=== PATIENT | female | born 1980 | race Caucasian/White ===

== ENCOUNTER 2023-04-13 12:08 | Outpatient (OUT) | payer MEDICARE, SELFPAY ==
[2023-04-13 13:40] LABS: Free T4 0.79 ng/dL (0.76-1.46)
[2023-04-13 13:43] LABS: Thyroid Stimulating Hormone 0.672 uIU/mL (0.358-3.740)
== END 2023-04-13 12:09 | disposition home or self-care (01) ==
LOC: LAB 12:08
PROVIDERS: PCP Family Medicine; Visit Provider Family Medicine
DX: E03.9 Hypothyroidism, unspecified (principal)
CPT/HCPCS: 36415; 84439; 84443

== ENCOUNTER 2023-07-26 08:23 | Outpatient (OUT) | payer MEDICARE, MEDICAID, SELFPAY ==
[2023-07-26 08:54] LABS: Basophils Absolute Auto 0.1 10^3/uL (0.0-0.1); Basophils Percent Auto 0.7 % (0.2-2.0); Eosinophils Absolute Auto 0.2 10^3/uL (0.0-0.7); Eosinophils Percent Auto 3.1 % (0.9-7.0); Hematocrit 42.1 % (36.0-48.0); Hemoglobin 13.6 g/dL (12.0-16.0); Immature Granulocytes Abs Auto 0.01 10^3/uL (0.00-0.03); Immature Granulocytes Pct Auto 0.1 % (0.0-0.5); Lymphocytes Absolute Auto 3.2 10^3/uL (1.2-3.8); Lymphocytes Percent Auto 42.8 % (20.5-60.0); Mean Corpuscular HGB Conc 32.3 g/dL (29.9-35.2); Mean Corpuscular Hemoglobin 30.4 pg (26.7-34.0); Mean Platelet Volume 10.2 fL (9.5-13.5); Monocytes Absolute Auto 0.7 10^3/uL (0.3-0.8); Monocytes Percent Auto 9.2 % (1.7-12.0); Neutrophils Absolute Auto 3.3 10^3/uL (1.4-6.5); Neutrophils Percent Auto 44.1 % (43.0-75.0); Platelet Count 248 10^3/uL (150-450); Red Blood Count 4.48 10^6/uL (4.20-5.40); Red Cell Distribution Width 13.9 % (11.0-15.0); White Blood Count 7.4 10^3/uL (4.0-11.0)
[2023-07-26 09:37] LABS: Free T4 0.86 ng/dL (0.76-1.46)
[2023-07-26 11:00] LABS: Thyroid Stimulating Hormone 1.263 uIU/mL (0.358-3.740)
[2023-07-27 16:09] LABS: Thyroglobulin Antibody <1.0 IU/mL (0.0-0.9); Thyroid Peroxidase (TPO) Ab <9 IU/mL (0-34)
== END 2023-07-26 08:24 | disposition home or self-care (01) ==
PROVIDERS: PCP Family Medicine; Visit Provider Family Medicine
DX: E03.9 Hypothyroidism, unspecified (principal); R53.83 Other fatigue
CPT/HCPCS: 36415; 84439; 84443; 85025; 86376; 86800

== ENCOUNTER 2023-09-28 12:57 | Outpatient (OUT) | payer MEDICARE, MEDICAID, SELFPAY ==
[2023-09-28 13:32] LABS: Basophils Absolute Auto 0.1 10^3/uL (0.0-0.1); Basophils Percent Auto 0.8 % (0.2-2.0); Eosinophils Absolute Auto 0.2 10^3/uL (0.0-0.7); Eosinophils Percent Auto 3.4 % (0.9-7.0); Hematocrit 41.1 % (36.0-48.0); Hemoglobin 13.3 g/dL (12.0-16.0); Immature Granulocytes Abs Auto 0.01 10^3/uL (0.00-0.03); Immature Granulocytes Pct Auto 0.1 % (0.0-0.5); Lymphocytes Absolute Auto 2.8 10^3/uL (1.2-3.8); Mean Corpuscular HGB Conc 32.4 g/dL (29.9-35.2); Mean Corpuscular Hemoglobin 30.6 pg (26.7-34.0); Mean Corpuscular Volume 94.5 fL (81.0-99.0); Monocytes Absolute Auto 0.5 10^3/uL (0.3-0.8); Monocytes Percent Auto 7.3 % (1.7-12.0); Neutrophils Absolute Auto 3.5 10^3/uL (1.4-6.5); Neutrophils Percent Auto 49.4 % (43.0-75.0); Platelet Count 286 10^3/uL (150-450); Red Blood Count 4.35 10^6/uL (4.20-5.40); Red Cell Distribution Width 13.1 % (11.0-15.0); White Blood Count 7.1 10^3/uL (4.0-11.0)
[2023-09-28 13:41] LABS: Estimated Average Glucose 91 mg/dL; Glycohemoglobin A1C 4.8 % (4.5-6.2)
[2023-09-28 14:11] LABS: Free T4 0.93 ng/dL (0.76-1.46)
[2023-09-28 14:16] LABS: HCG Quantitative <1 mIU/mL; Thyroid Stimulating Hormone 1.327 uIU/mL (0.358-3.740)
[2023-09-29 04:07] LABS: DHEA-Sulfate 98.1 ug/dL (57.3-279.2); FSH 32.8 mIU/mL (.)
[2023-10-03 20:07] LABS: DHEA, Serum 330 ng/dL (31-701)
== END 2023-09-28 12:58 | disposition home or self-care (01) ==
LOC: LAB 12:58
PROVIDERS: PCP Family Medicine; Visit Provider Obstetrics & Gynecology
DX: E28.2 Polycystic ovarian syndrome (principal); N92.6 Irregular menstruation, unspecified
CPT/HCPCS: 36415; 82626; 82627; 83001; 83002; 83036; 84439; 84443; 84702; 85025

== ENCOUNTER 2023-10-11 12:54 | Outpatient (OUT) | payer MEDICARE, MEDICAID, SELFPAY ==
--- OUTSIDE RECORDS SUMMARY | 2023-10-11 13:13 | XMS_ITS | CCD ---
Author Organization [facility] Care Team Providers Care Certified Caregiver Name Role Phone JOSÉ SOSA Referring Unavailable NGOC MARTINEZ Primary Care Unavailable JOSÉ SOSA Referring Unavailable NGOC MARTINEZ Primary Care Unavailable Ngoc Martinez Unavailable MARIO CERVANTES Admitting Unavailable MICHELLE, DR NGOC Lyle Primary Care Unavailable CHARLOTTE, DR EVERARDO Mart Consulting Unavailable RASHIDA ., MARIO Attending Unavailable RASHIDA ., MARIO Consulting Unavailable LUISA ., DR WILSON Attending Unavailable LUISA ., DR WILSON Consulting Unavailable LUISA ., DR WILSON Admitting Unavailable MICHELLE, DR NGOC Lyle Primary Care Unavailable NGOC MARTINEZ Referring Unavailable RONNY MARTINEZ Attending Unavailable KATIE MORAN Referring Unavailable KATIE MORAN Attending Unavailable Allergies Allergy Classification Reported Allergen(s) Allergy Type Date of Onset Reaction(s) Facility (20 sources) Acetaminophen / butalbital / Caffeine Drug Allergy Unknown [facility] (20 sources) cyclobenzaprine; Translations: [Flexeril] Drug Allergy 12-26-19 13 Unknown [facility] (20 sources) Sertraline Drug Allergy 09-28-19 24 Unknown, [facility] (20 sources) SUMAtriptan Drug Allergy 09-28-19 24 Unknown, [facility] (20 sources) topiramate Drug Allergy 09-28-19 24 Unknown, [facility] (20 sources) varenicline Drug Allergy 09-28-19 24 Unknown, [facility] (1 source) Acetaminophen / butalbital / Caffeine Drug Allergy 12-26-19 13 [facility] (1 source) diphenhydrAMINE Drug Allergy 12-26-19 13 [facility] (1 source) Iodine (And Iodine Containting Drugs) Drug allergy (disorder) [facility] (1 source) Plasmin Drug Allergy 12-26-19 13 [facility] (1 source) Progesterone Drug Allergy 07-14-19 15 [facility] (1 source) Sertraline Drug Allergy 12-26-19 13 [facility] (1 source) topiramate Drug Allergy 12-26-19 13 [facility] (1 source) traMADol Drug Allergy 06-15-20 16 [facility] (1 source) varenicline Drug Allergy [facility] (13 sources) Acetaminophen / butalbital / Caffeine / Codeine Drug Allergy Unknown [facility] (1 source) Contrast media Propensity to adverse reactions 09-11-19 17 Unknown [facility] (13 sources) Iodinated contrast media (substance) Drug allergy Unknown [facility] (1 source) Allergies Reconciled Propensity to adverse reactions 03-31-20 21 Unknown [facility] (1 source) patient allergy list reviewed by nurse or physicia Propensity to adverse reactions 02-17-20 19 Comment:Done [facility] Other (13 sources) MRI DYE Propensity to adverse reactions 10-20-19 17 Unknown [facility] (13 sources) Chantix *PSYCHOTHERAPEUTIC AND NEUROLOGICAL AGENTS Propensity to adverse reactions Unknown [facility] Other (13 sources) Contrast Allergy PreMed Pack *CORTICOSTEROIDS* Propensity to adverse reactions Comment:MRI DYE [facility] Other (13 sources) Flexeril *MUSCULOSKELETAL THERAPY AGENTS* Propensity to adverse reactions Unknown [facility] (1 source) Acetaminophen Drug Allergy 09-28-19 24 [facility] (1 source) butalbital Drug Allergy 09-28-19 24 [facility] (1 source) Caffeine Drug Allergy 09-28-19 24 [facility] (1 source) cyclobenzaprine Drug Allergy 09-28-19 [facility] (1 source) Iodinated Contrast Media Allergy to substance 09-28-19 [facility] (1 source) Chantix *PSYCHOTHERAPEUTIC AND Allergy to substance 09-28-19 [facility] (1 source) Contrast Allergy PreMed Pack * Allergy to substance 07-05-19 Comment:MRI [facility] (1 source) Fioricet/Codeine Allergy to substance 09-28-19 [facility] Medications Current Medications Medication Drug Class(es) Dates Sig (Normalized) Sig (Original) acetaminophen 325 mg / oxyCODONE hydrochloride 5 mg oral tablet (20 sources) Opioid Agonist Start: 09-28-2023 take 1 tablet by mouth every twelve hours Oxycodone-Acetami nophen Active 1 TAB PO Every 12 hours 60 September 28, 2023 Start: 08-26-2023 End: 09-28-2023 take 1 tablet by mouth twice daily Oxycodone-Acetaminophen Discontinued 1 T AB PO Twice daily 60 August 26, 2023 September 28, 2023 2:05pm Start: 07-30-2023 take 1 tablet by ledy th every twelve hours oxyCODONE-Acetaminophen 7.5-325 MG 1 tablet as needed Orally bid for 30 days Jul, Active Start: 07-02-2023 take 1 tablet by ledy th every twelve hours oxyCODONE-Acetaminophen 7.5-325 MG 1 tablet as needed Orally bid for 30 days Jun, Active Start: 05-06-2023 take 1 tablet by ledy th every twelve hours oxyCODONE-Acetaminophen 7.5-325 MG 1 tablet Orally bid May, Active Start: 03-11-2023 take 1 tablet by ledy th every twelve hours oxyCODONE-Acetaminophen 7.5-325 MG 1 tablet Orally bid Feb, Active Start: 02-11-2023 take 1 tablet by ledy th every twelve hours oxyCODONE-Acetaminophen 7.5-325 MG 1 tablet Orally bid Jan, Active Start: 01-14-2023 take 1 tablet by ledy th every twelve hours oxyCODONE-Acetaminophen 7.5-325 MG 1 tablet Orally bid Dec, Active Start: 12-17-2022 take 1 tablet by ledy th every twelve hours oxyCODONE-Acetaminophen 7.5-325 MG 1 tablet Orally bid Nov, Active Start: 11-19-2022 take 1 tablet by ledy th every twelve hours oxyCODONE-Acetaminophen 7.5-325 MG 1 tablet Orally bid October, Active Start: 10-23-2022 take 1 tablet by ledy th every twelve hours oxyCODONE-Acetaminophen 7.5-325 MG 1 tablet Orally bid Sep, Active Start: 09-24-2022 take 1 tablet by ledy th every twelve hours oxyCODONE-Acetaminophen 7.5-325 MG 1 tablet Orally bid Aug, Active Start: 08-27-2022 take 1 tablet by ledy th every twelve hours oxyCODONE-Acetaminophen 7.5-325 MG 1 tablet Orally bid Aug, Active take 1 tablet by ledy th every six hours Percocet 10-325 MG 1 tablet as needed Orally every 6 hrs Not-Taking [id number] 200 actuat albuterol 0.09 mg/actuat metered dose inhaler (20 sources) beta2-Adrenergic Agonist Start: 09-28-2023 take 3 mL by inhalation every six hours as needed Albuterol Sulfate Active 2.5 MG INHALATION Every 6 hours September 28, 2023 12:00am FreeTextSi mL as needed Inhalation every 6 hrs; Note: Source Status: Taking; Refills: 3; Qty: 360 ml; Provider: Michelle Lyle Start: 09-28-2023 take 1 puff(s) by in halation every four hours as needed Albuterol Sulfate (Ventolin Hfa) 90 mcg/actuation HFA aerosol inhaler Active 1 PUFF INHALATION Every 4 hours September 28, 2023 12:00am FreeTextSi puff as needed Inhalation every 4 hrs; Note: Source Status: Taking; Provider: Michelle Grossman ( ) Albuterol Sulfat e (2.5 MG/3ML) 0.083% 3 mL as needed Inhalation every 6 hrs for 30 days Active take 1 puff(s) by in halation every four hours as needed Ventolin HFA 108 (90 Base) MCG/ACT 1 puff as needed Inhalation every 4 hrs Active Albuterol Sulfat e (2.5 MG/3ML) 0.083% 3 mL as needed Inhalation every 6 hrs for 30 days Active azithromycin 250 mg oral tablet (10 sources) Macrolide Antimicrobial Start: 07-02-2023 Azithromycin 250 MG as directed Orally 2 tabs po today, then 1 tab daily x 4 more days for Jun, Active Start: 03-11-2023 Azithromycin 2 50 MG as directed Orally 2 tabs po today, then 1 tab daily x 4 more days for 5 Feb, Active 120 actuat budesonide 0.08 mg/actuat / formoterol fumarate 0.0045 mg/actuat metered dose inhaler (20 sources) Corticosteroid, beta2-Adrenergic Agonist Start: 09-28-2023 take 2 puff(s) by inhalation once daily Budesonide-Formoterol (Symbicort) 80-4.5 mcg/actuation HFA aerosol inhaler Active 2 PUFF INHALATION Daily September 28, 2023 12:00am FreeTextSi puffs Inhalation Once a day; Note: Source Status: Taking; Provider: Michelle Grossman ( ) take 2 puff(s) by inhalation onc e daily Symbicort 80-4.5 MCG/ACT 2 puffs Inhalation Once a day Active take 2 puff(s) by inhalation onc e daily Symbicort 80-4.5 MCG/ACT 2 puffs Inhalation Once a day Active 24 hr buPROPion hydrochloride 300 mg extended release oral tablet (20 sources) Aminoketone Start: 08-26-2023 End: 08-26-2023 take 300 mg by mouth once daily Bupropion Hcl Active 300 MG PO Daily August 26, 2023 4:58pm Start: 11-20-2022 take 1 tablet by ledy th every twenty-four hours buPROPion HCl ER (XL) 300 MG 1 tablet in the morning Orally Once a day for 90 days October, Active fluticasone propionate 0.05 mg/actuat metered dose nasal spray (20 sources) Corticosteroid Start: 09-28-2023 take 2 spray(s) nasal route once daily Fluticasone Propionate Active INTRANASAL September 28, 2023 12:00am FreeTextSig: INSTILL 2 SPRAYS INTO EACH NOSTRIL DAILY FOR 30 DAYS; Note: Source Status: Taking; Refills: 3; Qty: 16 Gram; Provider: Michelle Lyle Fluticasone Prop ionate 50 MCG/ACT INSTILL 2 SPRAYS INTO EACH NOSTRIL DAILY FOR 30 DAYS for 30 Active Fluticasone Prop ionate 50 MCG/ACT INSTILL 2 SPRAYS INTO EACH NOSTRIL DAILY FOR 30 DAYS for 30 Active 12 hr guaiFENesin 600 mg extended release oral tablet (19 sources) take 1 tablet by mouth every twelve hours Mucinex 600 MG 1 tablet as needed Orally every 12 hrs Active levothyroxine sodium 0.075 mg oral tablet (20 sources) l-Thyroxine Start: 09-27-2023 take 1 tablet by mouth once daily Levothyroxine Active 1 TAB PO Daily September 27, 2023 12:00am FreeTextSig: TAKE ONE TABLET BY MOUTH DAILY; Note: Source Status: Taking; Provider: Michelle Lyle take 1 tablet by mouth once rodolfo y Levothyroxine Sodium 75 MCG TAKE ONE TABLET BY MOUTH DAILY Active take 1 tablet by mouth once rodolfo y Levothyroxine Sodium 75 MCG TAKE ONE TABLET BY MOUTH DAILY for 30 Active methylPREDNISolone 4 mg oral tablet (13 sources) Corticosteroid Start: 12-02-2022 methylPREDNISolone 4 MG as directed Orally for 6 days Nov, Active montelukast 10 mg oral tablet (20 sources) Leukotriene Receptor Antagonist Start: 09-27-2023 take 1 tablet by mouth once daily at bedtime Montelukast (Singulair) 10 mg tablet Active 1 TAB PO Daily at bedtime September 27, 2023 12:00am FreeTextSi tablet Orally at bedtime; Note: Source Status: Taking; Provider: Michelle Grossamn ( ) take 1 tablet by mouth at bedtim e Singulair 10 mg 1 tablet Orally at bedtime Active Pre- (20 sources) Pre- Active predniSONE 20 mg oral tablet (8 sources) Start: 03-11-2023 take 2 tablets by mouth every twenty-four hours predniSONE 20 MG 2 tablets Orally Once a day for 5 days Feb, Active pregabalin 150 mg oral capsule (20 sources) Start: 07-30-2023 Pregabalin 150 mg TAKE ONE CAPSULE BY MOUTH TWICE A DAY FOR 30 DAYS for 30 Jul, Active Start: 04-05-2023 Pregabalin 150 mg TAKE ONE CAPSULE BY MOUTH TWICE A DAY FOR 30 DAYS for Mar, Active Start: 07-01-2022 take 1 capsule by mo ut every twelve hours Lyrica 150 MG 1 capsule Orally Twice a day for 30 days October, Active Start: 07-01-2022 take 1 capsule by mo ut every twenty-four hours Lyrica 150 MG 1 capsule Orally Once a day for 30 days Jun, Active promethazine hydrochloride 25 mg oral tablet (20 sources) Phenothiazine Start: 09-28-2023 take 25 mg by mouth three times daily Promethazine Active 25 MG PO Three times daily September 28, 2023 12:00am take 1 tablet by ledy th three times daily as needed Phenergan 25 mg 1 Tablet By Mouth tid pr n for 10 days Active sulfamethoxazole 800 mg / trimethoprim 160 mg oral tablet (6 sources) Dihydrofolate Reductase Inhibitor Antibacterial, Sulfonamide Antimicrobial Start: 09-02-2022 take 1 tablet by mouth every twelve hours Bactrim DS 800-160 MG 1 tablet Orally Twice a day for 10 day(s) Aug, Active tiZANidine 4 mg oral tablet (7 sources) Central alpha-2 Adrenergic Agonist Start: 09-28-2023 take 4 mg by mouth once daily at bedtime Tizanidine Active 4 MG PO Daily at bedtime September 28, 2023 12:00am take 1 tablet by ledy th every twelve hours Zanaflex 4 mg 1 tablet as needed Orally bid Not-Taking Completed/Discontinued Medications Medication Drug Class(es) Dates Sig (Normalized) Sig (Original) ALPRAZolam 1 mg oral tablet (6 sources) Benzodiazepine take 1 tablet by mouth every eight hours Xanax 1 MG 1 tablet Orally Three times a day Not-Taking cephalexin 500 mg oral tablet (14 sources) Cephalosporin Antibacterial Start: 09-28-2023 End: 09-28-2023 take 500 mg by mouth twice daily Cephalexin Discontinued 500 MG PO Twice daily September 28, 2023 12:00am September 28, 2023 1:54pm take 1 capsule by mouth every si x hours Keflex 250 MG 1 capsule Orally every 6 hrs Active dicyclomine hydrochloride 10 mg oral tablet (6 sources) Anticholinergic take 1 capsule by mouth four times daily as needed Bentyl 10 mg 1 capsule Orally Four times a day as needed Not-Taking gabapentin 300 mg oral capsule (6 sources) Anti-epileptic Agent Start: 6 take 1 capsule by mouth every eight hours Gabapentin 300 MG 1 capsule Orally Three times a day for 30 day(s) Jun, Not-Taking OXcarbazepine 300 mg oral tablet (6 sources) Anti-epileptic Agent take 1 tablet by mouth at bedtime Trileptal 300 MG 1 Tablet Orally at bedtime Not-Taking Problems Active Problems Problem Classification Problem Date Documented Da te Episodic/Chronic Abdominal hernia (1 source) Umbilical hernia; Translations: [Umbilical hernia without obstruction or gangrene] Episodic Anxiety disorders (5 sources) Anxiety disorder, unspecified; Translations: [Anxiety disorder] Onset: 08-06-2015 Chronic Asthma (20 sources) Unspecified asthma, uncomplicated; Translations: [Uncomplicated moderate persistent asthma] Onset: 01-22-2015 Chronic Bacterial infection; unspecified site (3 sources) Other specified bacterial agents as the cause of diseases classified elsewhere; Translations: [Bacterial infectious disease] Onset: 10-13-2018 Episodic Chronic obstructive pulmonary disease and bronchiectasis (1 source) Bronchitis, not specified as acute or chronic Episodic Disorders of teeth and jaw (3 sources) Carious exposure of pulp ; Translations: [Dental caries extending into pulp] Onset: 08-19-2017 Episodic Esophageal disorders (2 sources) Esophageal reflux finding; Translations: [Esophageal reflux] Onset: 03-13-2013 Chronic Essential hypertension (1 source) Essential (primary) hypertension; Translations: [ESSENTIAL PRIMARY HYPERTENSION] Onset: 04-21-2022 Chronic Headache; including migraine (1 source) Migraine without aura, not refractory ; Translations: [Migraine, unspecified, not intractable, without status migrainosus] Chronic Hemorrhage during ; abruptio placenta; placenta previa (1 source) Placenta previa without hemorrhage; Translations: [Low lying placenta NOS or without hemorrhage, unspecified trimester] Episodic Inflammatory diseases of female pelvic organs (1 source) Acute vaginitis; Translations: [Acute vaginitis] Onset: 10-13-2018 Episodic Influenza (1 source) Upper respiratory tract infection due to Influenza; Translations: [Influenza due to unidentified influenza virus with other respiratory manifestations] Episodic Malaise and fatigue (2 sources) Malaise and fatigue; Translations: [Other malaise and fatigue] Onset: 11-10-2016 Episodic Menstrual disorders (4 sources) Excessive and frequent menstruation; Translations: [Excessive and frequent menstruation with regular cycle] Onset: 11-11-2018 Chronic Mood disorders (2 sources) Major depressive disorder, single episode, unspecified; Translations: [Depression] Onset: 04-21-2022 Chronic Nausea and vomiting (5 sources) Nausea with vomiting, unspecified; Translations: [Vomiting] Onset: 11-11-2018 Episodic Nonmalignant breast conditions (5 sources) Mastitis without abscess; Translations: [O/E-breast lump-upper out-quad] Onset: 07-10-2013 Episodic Osteoporosis (1 source) Primary osteoporosis; Translations: [Age-related osteoporosis without current pathological fracture] Chronic Other aftercare (20 sources) High risk drug monitoring status; Translations: [correction (current) use of opiate analgesic] Episodic Other aftercare (1 source) Long-term current use of inhaled steroid; 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] Episodic Other complications of ; puerperium affecting management of mother (1 source) Galactorrhea not associated with childbirth; Translations: [Galactorrhea] Episodic Other complications of (2 sources) High risk ; Translations: [Supervision of high risk , unspecified, unspecified trimester] Onset: 10-07-2020 Resolved: 10-15-2020 Episodic Other female genital disorders (1 source) Abnormal uterine bleeding; Translations: [Abnormal uterine and vaginal bleeding, unspecified] Chronic Other gastrointestinal disorders (1 source) Irritable bowel syndrome with diarrhea; Translations: [Irritable bowel syndrome with diarrhea] Chronic Other nervous system disorders (1 source) Sensory disorder of smell and/or taste; Translations: [Unspecified disturbances of smell and taste] Episodic Other non-traumatic joint disorders (20 sources) Shoulder joint pain; Translations: [Pain in left shoulder] Onset: 12-07-2016 Episodic Other non-traumatic joint disorders (10 sources) Pain in left shoulder Episodic Other non-traumatic joint disorders (1 source) Arthralgia of the ankle and/or foot; Translations: [Pain in left ankle and joints of left foot] Episodic Other nutritional; endocrine; and metabolic disorders (1 source) Body mass index 30+ - obesity; Translations: [Body mass index 30.0-30.9, adult] Onset: 05-10-2017 Chronic Other nutritional; endocrine; and metabolic disorders (3 sources) Obese class I; Translations: [Body mass index (BMI) 33.0-33.9, adult] Chronic Other nutritional; endocrine; and metabolic disorders (1 source) Obese class II; Translations: [Body mass index (BMI) 37.0-37.9, adult] Chronic Other nutritional; endocrine; and metabolic disorders (1 source) Obesity; Translations: [Obesity, unspecified] Onset: 11-10-2021 Chronic Other screening for suspected conditions (not mental disorders or infectious disease) (8 sources) Encounter for screening for malignant neoplasm of cervix; Translations: [Abnormal findings on diagnostic imaging of breast] Onset: 11-11-2018 Resolved: 10-15-2020 Episodic Other skin disorders (1 source) Acne; Translations: [Acne, unspecified] Episodic Other skin disorders (1 source) Acne vulgaris; Translations: [Acne vulgaris] Episodic Other upper respiratory disease (1 source) Seasonal allergic rhinitis; Translations: [Other seasonal allergic rhinitis] Onset: 12-21-2018 Chronic Other upper respiratory disease (1 source) Allergic rhinitis; Translations: [Other allergic rhinitis] Chronic Residual codes; unclassified (2 sources) Tobacco user; Translations: [Tobacco use] Onset: 01-04-2017 Episodic Residual codes; unclassified (1 source) Gestation period, 24 weeks; Translations: [24 weeks gestation of ] Episodic Residual codes; unclassified (1 source) Gestation period, 31 weeks; Translations: [31 weeks gestation of ] Episodic Residual codes; unclassified (1 source) Gestation period, 35 weeks; Translations: [35 weeks gestation of ] Episodic Residual codes; unclassified (1 source) Gestation period, 19 weeks; Translations: [19 weeks gestation of ] Episodic Residual codes; unclassified (1 source) Gestation period, 22 weeks; Translations: [22 weeks gestation of ] Episodic Spondylosis; intervertebral disc disorders; other back problems (20 sources) Neck pain; Translations: [Cervicalgia] Onset: 07-01-2015 Episodic Substance-related disorders (4 sources) Tobacco user; Translations: [Nicotine dependence, cigarettes, in remission] Chronic Thyroid disorders (15 sources) Hypothyroidism; Translations: [Hypothyroidism, unspecified] Chronic Unclassified (1 source) Long-term current use of drug therapy; Translations: [Long-term (current) use of other medications] Onset: 10-04-2014 Past or Other Problems Problem Classification Problem Date Documented Da te Episodic/Chronic Abdominal pain (2 sources) Abdominal pain; Translations: [Unspecified abdominal pain] Onset: 03-03-2018 Resolved: 10-02-2020 Episodic Acute bronchitis (1 source) Acute bronchitis; Translations: [Acute bronchitis, unspecified] Onset: 03-13-2013 Episodic Contraceptive and procreative management (1 source) Sterilization procedure; Translations: [Encounter for sterilization] Resolved: 05-06-2021 Episodic E Codes: Fall (1 source) Fall (on) (from) unspecified stairs and steps, initial encounter; Translations: [FALL ON FROM UNS STAIRS STEPS INIT] Onset: 04-21-2022 Episodic Epilepsy; convulsions (1 source) Seizure; Translations: [Other convulsions] Onset: 09-14-2017 Episodic Fracture of upper limb (2 sources) Unspecified fracture of shaft of right ulna, initial encounter for closed fracture; Translations: [Closed fracture distal humerus, lateral condyle ] Onset: 06-16-2016 Episodic Other aftercare (1 source) Other assisted (current) drug therapy; Translations: [OTH DETENTION CURRENT DRUG THERAPY] Onset: 04-21-2022 Episodic Other aftercare (1 source) History and physical examination, follow-up; Translations: [Encounter for follow-up examination after completed treatment for conditions other than malignant neoplasm] Resolved: 05-06-2021 Episodic Other complications of (1 source) Disease of respiratory system complicating ; Translations: [Diseases of the respiratory system complicating , unspecified trimester] Resolved: 09-12-2021 Episodic Other complications of (1 source) Vomiting of ; Translations: [Vomiting of , unspecified] Resolved: 05-06-2021 Episodic Other complications of (1 source) Abnormal findings on screening of mother; Translations: [Abnormal hematological finding on screening of mother] Resolved: 05-06-2021 Episodic Other connective tissue disease (3 sources) Pain in right arm; Translations: [PAIN IN RIGHT ARM] Onset: 04-20-2022 Episodic Other connective tissue disease (1 source) Spasm; Translations: [Spasm of muscle] Onset: 01-26-2014 Episodic Other eye disorders (1 source) Exotropia; Translations: [Unspecified exotropia] Onset: 07-10-2013 Episodic Other gastrointestinal disorders (1 source) Diarrhea; Translations: [Diarrhea, unspecified] Onset: 05-07-2014 Episodic Other injuries and conditions due to external causes (1 source) History of fall; Translations: [History of falling] Resolved: 09-12-2021 Episodic Other non-traumatic joint disorders (1 source) Joint effusion of ankle AND/OR foot; Translations: [Effusion of ankle and foot joint] Onset: 12-05-2015 Episodic Other non-traumatic joint disorders (1 source) Pain in wrist; Translations: [Pain in left wrist] Onset: 11-05-2014 Episodic Other nutritional; endocrine; and metabolic disorders (1 source) Abnormal weight gain; Translations: [Abnormal weight gain] Onset: 09-12-2021 Episodic Other and delivery including normal (1 source) test positive; Translations: [Encounter for test, result positive] Resolved: 10-15-2020 Episodic Other skin disorders (1 source) Folliculitis; Translations: [Follicular disorder, unspecified] Onset: 02-16-2019 Episodic Other upper respiratory infections (1 source) Acute maxillary sinusitis; Translations: [Acute recurrent maxillary sinusitis] Onset: 02-02-2017 Episodic Residual codes; unclassified (1 source) Edema; Translations: [Edema] Onset: 12-15-2013 Episodic Residual codes; unclassified (1 source) Acquired absence of genital organ; Translations: [Acquired absence of other genital organ(s)] Resolved: 05-06-2021 Episodic Residual codes; unclassified (1 source) Gestation period, 33 weeks; Translations: [33 weeks gestation of ] Resolved: 09-12-2021 Episodic Residual codes; unclassified (1 source) Gestation period, 29 weeks; Translations: [29 weeks gestation of ] Resolved: 01-06-2021 Episodic Residual codes; unclassified (1 source) Gestation period, 27 weeks; Translations: [27 weeks gestation of ] Resolved: 12-18-2020 Episodic Screening and history of mental health and substance abuse codes (1 source) Personal history of nicotine dependence; Translations: [PERSONAL HISTORY OF NICOTINE DEPEND] Onset: 04-21-2022 Episodic Skin and subcutaneous tissue infections (2 sources) Cellulitis of face; Translations: [Cellulitis of perineum] Onset: 07-01-2015 Episodic Syncope (1 source) Syncope and collapse; Translations: [Syncope and collapse] Onset: 11-01-2017 Episodic Unclassified (1 source) Acute candidiasis of vulva and vagina; Translations: [Acute candidiasis of vulva and vagina] Unclassified (1 source) Identification of preoperative respiratory status; Translations: [Encounter for preprocedural respiratory examination] Onset: 07-10-2013 Viral infection (1 source) COVID-19 Results Test Name Value Interpretation Reference Range Facil ity Basophils Auto (Bld) [#/Vol] on 09-28-2023 Basophils (Bld) [#/Vol] 0.1 10 3/uL 0.0-0.1 [facility] Basophils/100 WBC Auto (Bld) on 09-28-2023 Basophils/100 WBC (Bld) 0.8 % 0.2-2.0 [facility] Eosinophils/100 WBC Auto (Bl d)on 09-28-2023 Eosinophils/100 WBC (Bld) 3.4 % 0.9-7.0 [facility] Erythrocyte distribution wid th Auto (RBC) [Ratio]on 09-28-2023 Erythrocyte distribution width (RBC) [Ratio] 13.1 % 11.0-15.0 [facility] Glucose mean value [Mass/vol ume] in Blood Estimated from glycated hemoglobinon 09-28-2023 Average glucose Estimated from glycated hemoglobin (Bld) [Mass/Vol] 91 mg/dL [facility] Hematocrit Auto (Bld) [Volum e fraction]on 09-28-2023 Hematocrit (Bld) [Volume fraction] 41.1 % 36.0-48.0 [facility] Hemoglobin [Mass/volume] in Bloodon 09-28-2023 Hemoglobin (Bld) [Mass/Vol] 13.3 g/dL 12.0-16.0 [facility] Laboratory - Hematology and Cell countson 09-28-2023 HbA1c (Bld) [Mass fraction] 4.8 % 4.5-6.2 [facility] Comment on above: ADA RECOMMENDED LIMI T 4.0 - 6.0ADA THERAPEUTIC TARGET < 7.0ACTION SUGGESTED> 7.0 Immature granulocytes/100 WBC (Bld) 0.1 % 0.0-0.5 [facility] Leukocytes [#/volume] correc gem for nucleated erythrocytes in Blood by Automated counon 09-28-2023 WBC corrected for nucl RBC Auto (Bld) [#/Vol] 7.1 10 3/uL 4.0-11.0 [facility] Lymphocytes Auto (Bld) [#/Vo l]on 09-28-2023 Lymphocytes (Bld) [#/Vol] 2.8 10 3/uL 1.2-3.8 [facility] Lymphocytes/100 WBC Auto (Bl d)on 09-28-2023 Lymphocytes/100 WBC (Bld) 39.0 % 20.5-60.0 [facility] MCH Auto (RBC) [Entitic mass ]on 09-28-2023 MCH (RBC) [Entitic mass] 30.6 pg 26.7-34.0 [facility] MCHC Auto (RBC) [Mass/Vol]on 09-28-2023 MCHC (RBC) [Mass/Vol] 32.4 g/dL 29.9-35.2 [facility] MCV Auto (RBC) [Entitic vol] on 09-28-2023 MCV (RBC) [Entitic vol] 94.5 fL 81.0-99.0 [facility] Monocytes Auto (Bld) [#/Vol] on 09-28-2023 Monocytes (Bld) [#/Vol] 0.5 10 3/uL 0.3-0.8 [facility] Monocytes/100 WBC Auto (Bld) on 09-28-2023 Monocytes/100 WBC (Bld) 7.3 % 1.7-12.0 [facility] Neutrophils Auto (Bld) [#/Vo l]on 09-28-2023 Neutrophils (Bld) [#/Vol] 3.5 10 3/uL 1.4-6.5 [facility] Neutrophils/100 WBC Auto (Bl d)on 09-28-2023 Neutrophils/100 WBC (Bld) 49.4 % 43.0-75.0 [facility] No Panel Informationon 09-27 Eosinophils # (Auto) 0.2 10 3/uL 0.0-0.7 [facility] Immature Granulocyte # (Auto) 0.01 10 3/uL 0.00-0.03 [facility] Platelet mean volume Auto (B ld) [Entitic vol]on 09-28-2023 Platelet mean volume (Bld) [Entitic vol] 10.0 fL 9.5-13.5 [facility] Platelets Auto (Bld) [#/Vol] on 09-28-2023 Platelets (Bld) [#/Vol] 286 10 3/uL 150-450 [facility] RBC Auto (Bld) [#/Vol]on RBC (Bld) [#/Vol] 4.35 10 6/uL 4.20-5.40 [facility] BI MAMMOGRAM DIAGNOSTIC ERI SYNTHESIS LEFTon 08-02-2023 BI MAMMOGRAM DIAGNOSTIC TOMOSYNTHESIS LEFT This is a summary report. The complete report is available in the patient's medical record. If you cannot access the medical record, please contact the sending organization for a detailed fax or copy. EXAM: BI MAMMOGRAM DIAGNOSTIC TOMOSYNTHESIS LEFT DATE:08/02/2023 9:51 AM CLINICAL HISTORY: cyst on left breast. COMPARISONS: Screening mammograms 12/16/2022 diagnostic left breast mammograms and ultrasound 12/21/2022. TECHNIQUE: Full field routine mammograms were obtained of the left breast. FINDINGS: Asymmetric density in the upper outer quadrant at a posterior depth is similar to the prior study, given differences in technique and positioning. There are no dominant masses, suspicious microcalcifications, or areas of architectural distortion identified. IMPRESSION: BIRADS 1 - Negative. Follow-up: Routine Screening Mamm. Density: Heterogeneously dense [3]. Board Certified Radiologists. Accredited by the ACR and FDA. MAMMOGRAPHY IS VERY IMPORTANT TO YOUR HEALTH. THE CURRENT [employer] GUIDELINES RECOMMENDS ANNUAL MAMMOGRAPHY BEGINNING AT AGE 40. THIS FACILITY UTILIZES A REMINDER SYSTEM TO ENSURE ALL PATIENTS RECEIVE REMINDER NOTIFICATIONS AT THE APPROPRIATE TIME BASED ON THE RECOMMENDATIONS OF THIS EXAM. ELECTRONICALLY SIGNED BY: Everardo Walters MD Normal Not Available Comment on above: Order Comment: To rios ve repeated in 6 months. Compared to Mammogram done on Left breast on 12/21/2022. PAP ACOG PANEL 2: 30 to 65on 05--2023 . . Normal [facility] Comment on above: Result Comment: Perf ormed at: WB Performed By: #### [id number] #### [facility] [address] [address] [address] Kleber Deleon Age Gdln ACOG Testing 30-65 [facility] Comment on above: Performed By: #### [id number] #### [facility] [address] [address] [address] Kleber Deleon DIAGNOSIS: Comment Normal [facility] Comment on above: Result Comment: NEGA TIVE FOR INTRAEPITHELIAL LESION OR MALIGNANCY. Performed at: WB Performed By: #### [id number] #### [facility] [address] [place] [address] Dr. Kleber Deleon HPV Aptima Negative Normal Negative [facility] Comment on above: Result Comment: This nucleic acid amplification test detects fourteen high-risk HPV types (16,18,31,33,35,39,45,51,52,56,58,59,66,68) without differentiation. Performed at: =G Performed By: #### [id number] #### [facility] [address] [address] [address] Kleber Deleon HPV Genotype Reflex Comment Normal [facility] Comment on above: Result Comment: Crit eria not met, HPV Genotype not performed. Performed at: WB Performed By: #### [id number] #### [facility] [address] [place] [address] Dr. Kleber Deleon Methodology: Comment [facility] Comment on above: Result Comment: This liquid based ThinPrep(R) pap test was screened with the use of an image guided system. Performed at: WB Performed By: #### [id number] #### [facility] [address] [place] [address] Dr. Kleber Deleon Note: Comment Normal [facility] Comment on above: Result Comment: The Pap smear is a screening test designed to aid in the detection of premalignant and malignant conditions of the uterine cervix. It is not a diagnostic procedure and should not be used as the sole means of detecting cervical cancer. Both false-positive and false-negative reports do occur. . Performed at: WB Performed By: #### [id number] #### [facility] [address] [place] [address] Dr. Kleber Deleon Performed by: Comment Normal [facility] Comment on above: Result Comment: Alyssa Henderson, Peanut Separator (ASCP) Performed at: WB Performed By: #### [id number] #### [facility] [address] [place] [address] Dr. Kleber Deleon Specimen adequacy: Comment Normal [facility] Comment on above: Result Comment: Sati sfactory for evaluation. Endocervical and/or squamous metaplastic cells (endocervical component) are present. Performed at: WB Performed By: #### [id number] #### [facility] [address] [place] [address] Dr. Kleber Deleon XR FACIAL MIN 3 VIEWSon 03-29 XR FACIAL MIN 3 VIEWS EXAM: XR FACIAL MIN 3 VIEWS HISTORY: Falls ; fell downstairs, facial pain COMPARISON: None. TECHNIQUE: FINDINGS: No visible fracture of the facial bones. Orbital rims are intact. No fluid levels within the paranasal sinuses. IMPRESSION: 1. No acute bone abnormality. Electronically authenticated by: EVERARDO PORTER Date: 2022-04-20 07:52 Normal [facility] Cult,Genitalon 10-16-2018 Cult,Genital Specimen Description .VAGINA Special Requests NOT REPORTED Culture NORMAL URO-GENITAL DAVI STREPTOCOCCI, BETA HEMOLYTIC GROUP B ISOLATED. NEGATIVE FOR NEISSERIA GONORRHOEAE Report Status FINAL 10/16/2018 Normal [facility] Comment on above: Performed By: #### G EC #### [address] [id number] Copra Sampler: Bob Whitehead MD [facility] [address] [place] [address] 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 - Endocervical/transform ation zone component present. Descriptive Diagnosis: Negative for intraepithelial lesion or malignancy. Peanut Separator: JEOVANY Gerber(ASCP) Electronically Signed Out mathew/02/16/2018 [facility] Comment on above: Performed By: #### P PPVP #### [address] [id number] Vital Signs Date Time Vital Sign Value Performing Clinician Facility 09-28-2023 13:33-0400 Body height 175.26 cm [facility] 09-28-2023 13:33-0400 Body mass index (BMI) [Ratio] 24.8 kg/m2 [facility] 09-28-2023 13:33-0400 Body weight 76.43 kg [facility] 09-28-2023 13:33-0400 Diastolic blood pressure 91 mm[Hg] [facility] 09-28-2023 13:33-0400 Heart rate 64 /min [facility] 09-28-2023 13:33-0400 Systolic blood pressure 128 mm[Hg] [facility] 06-11-2023 10:15-0500 Body height 175.26 cm Ngoc Martinez Other [facility] [employer] [facility] 06-11-2023 10:15-0500 Body mass index (BMI) [Ratio] 25.99 kg/m2 Ngoc Martinez Other [facility] [employer] Other 06-11-2023 10:15-0500 Body weight 79.83 kg Ngoc Martinez Other [facility] [employer] Other 06-11-2023 10:15-0500 Diastolic blood pressure 76 mm[Hg] Ngoc Martinez Other [facility] [employer] Other 06-11-2023 10:15-0500 Systolic blood pressure 125 mm[Hg] Ngoc Martinez Other [facility] [employer] Other 03-11-2023 11:15-0400 Body height 175.26 cm Ngoc Martinez Other [facility] [employer] Other 03-11-2023 11:15-0400 Body mass index (BMI) [Ratio] 26.73 kg/m2 Ngoc Martinez Other [facility] [employer] Other 03-11-2023 11:15-0400 Body weight 82.1 kg Ngoc Martinez Other [facility] [employer] Other 03-11-2023 11:15-0400 Diastolic blood pressure 74 mm[Hg] Ngoc Martinez Other [facility] [employer] Other 03-11-2023 11:15-0400 Respiratory rate 20 /min Ngoc Martinez Other [facility] [employer] Other 03-11-2023 11:15-0400 Systolic blood pressure 118 mm[Hg] Ngoc Martinez Other [facility] [employer] Other 12-02-2022 09:00-0400 Body height 175.26 cm Ngoc Martinez Other [facility] [employer] Other 12-02-2022 09:00-0400 Body mass index (BMI) [Ratio] 26.73 kg/m2 Ngoc Martinez Other [facility] [employer] Other 12-02-2022 09:00-0400 Body weight 82.1 kg Ngoc Martinez Other [facility] [employer] Other 12-02-2022 09:00-0400 Diastolic blood pressure 72 mm[Hg] Ngoc Martinez Other [employer] Other 12-02-2022 09:00-0400 Systolic blood pressure 112 mm[Hg] Ngoc Martinez Other [facility] [employer] Other 09-02-2022 08:45-0500 Body height 175.26 cm Ngoc Martinez Other [facility] [employer] Other 09-02-2022 08:45-0500 Body mass index (BMI) [Ratio] 27.61 kg/m2 Ngoc Martinez Other [facility] [employer] Other 09-02-2022 08:45-0500 Body weight 84.82 kg Ngoc Martinez Other [facility] [employer] Other 09-02-2022 08:45-0500 Diastolic blood pressure 84 mm[Hg] Ngoc Martinez Other [facility] [employer] Other 09-02-2022 08:45-0500 SaO2% (BldA) [Mass fraction] 99 % Ngoc Martinez Other [facility] [employer] Other 09-02-2022 08:45-0500 Systolic blood pressure 142 mm[Hg] Ngoc Martinez Other [employer] Other Encounters Encounter Date Encounter Type Care Provider Facility Start: 09-28-2023 End: 09-28-2023 ambulatory [facility] Work Phone: Start: 09-28-2023 End: 09-28-2023 Patient encounter procedure [facility] Work Phone: Start: 09-21-2023 End: 09-21-2023 ambulatory KATIE LUISA Not Available Start: 08-26-2023 Non-patient / Non-visit [facility] Work Phone: Start: 08-26-2023 Non-patient / Non-visit [facility] Work Phone: Start: 08-02-2023 End: 08-03-2023 ambulatory KATIE LUISA Not Available Start: 07-29-2023 End: 07-29-2023 ambulatory Ngoc Martinez Other [employer] Other Start: 07-29-2023 Telephone encounter Ngoc Martinez [facility] Start: 07-26-2023 End: 07-26-2023 ambulatory NGOC MARTINEZ Facility:[facility] Start: 07-05-2023 Patient encounter procedure [facility] Start: 07-02-2023 End: 07-02-2023 ambulatory Ngoc Martinez Other [employer] Other Start: 07-02-2023 Office outpatient vi sit 15 minutes Ngoc Martinez [facility] Start: 07-01-2023 End: 07-01-2023 ambulatory Ngoc Martinez Other [employer] Other Start: 07-01-2023 Telephone encounter Ngoc Martinez [facility] Start: 06-11-2023 End: 06-11-2023 ambulatory Nogc Martinez Other [employer] Other Start: 06-11-2023 Office outpatient vi sit 15 minutes Ngoc Martinez [facility] Start: 06-03-2023 End: 06-03-2023 ambulatory Ngoc Martinez Other [employer] Other Start: 06-03-2023 Telephone encounter Ngoc Martinez [facility] Start: 06-02-2023 End: 06-02-2023 ambulatory Ngoc Martinez Other [employer] Other Start: 06-02-2023 Telephone encounter Ngoc Martinez [facility] Start: 05-27-2023 End: 05-27-2023 ambulatory Ngoc Martinez Other [employer] Other Start: 05-27-2023 Telephone encounter Ngoc Martinez [facility] Start: 05-06-2023 End: 05-06-2023 ambulatory Ngoc Martinez Other [employer] Other Start: 05-06-2023 Telephone encounter Ngoc Martinez [facility] Start: 04-14-2023 End: 04-14-2023 ambulatory Ngoc Martinez Other [employer] Other Start: 04-14-2023 Telephone encounter Ngoc Martinez [facility] Start: 04-08-2023 End: 04-08-2023 ambulatory Ngoc Martinez Other [employer] Other Start: 04-08-2023 Telephone encounter Ngoc Martinez [facility] Start: 04-01-2023 End: 04-01-2023 ambulatory Ngoc Martinez Other [employer] Other Start: 04-01-2023 Telephone encounter Ngoc Martinez [facility] Start: 03-11-2023 End: 03-11-2023 ambulatory Ngoc Martinez Other [employer] Other Start: 03-11-2023 Office outpatient vi sit 15 minutes Ngoc Martinez [facility] Start: 02-11-2023 End: 02-11-2023 ambulatory Ngoc Martinez Other [employer] Other Start: 02-11-2023 Telephone encounter Ngoc Martinez [facility] Start: 01-14-2023 End: 01-14-2023 ambulatory Ngoc Martinez Other [employer] Other Start: 01-14-2023 Telephone encounter Ngoc Michelle [facility] Start: 12-17-2022 End: 12-17-2022 ambulatory Ngoc Michelle Other [employer] Other Start: 12-17-2022 Telephone encounter Ngoc Martinez [facility] Start: 12-02-2022 End: 12-02-2022 ambulatory Ngco Michelle Other [employer] Other Start: 12-02-2022 Office outpatient vi sit 15 minutes Ngoc Michelle [facility] Start: 11-20-2022 End: 11-20-2022 ambulatory Ngoc Michelle Other [employer] Other Start: 11-20-2022 Telephone encounter Ngoc Michelle [facility] Start: 10-27-2022 End: 10-27-[address] KATIE MORAN . Facility: Start: 10-22-2022 End: 10-22-2022 ambulatory Ngoc Michelle Other [employer] Other Start: 10-22-2022 Telephone encounter Ngoc Martinez [facility] Start: 09-24-2022 End: 09-24-2022 ambulatory Ngoc Michelle Other [employer] Other Start: 09-24-2022 Telephone encounter Ngoc Martinez [facility] Start: 09-02-2022 End: 09-02-2022 ambulatory Ngoc Michelle Other [employer] Other Start: 09-02-2022 Office outpatient vi sit 15 minutes Ngoc Martinez [facility] Start: 08-28-2022 End: 08-28-2022 ambulatory Ngoc Michelle Other [employer] Other Start: 08-28-2022 Telephone encounter Ngoc Martinez [facility] Start: 04-30-2022 Gynecological examination normal Ngoc Martinez Other [employer] Other Start: 04-20-2022 End: 04-20-2022 ambulatory MARIO FIELD . Facility: Start: 11-10-2021 End: 11-10-2021 Pre-procedure evaluation check Ngoc Martinez Other [employer] Other Start: 10-13-2018 End: 10-14-2018 Patient encounter procedure [facility] Start: 01-27-2018 Encounter for gynecological examination (general) (routine) without abnormal findings [facility] Start: 01-27-2018 End: 01-28-2018 Patient encounter procedure [facility] Procedures Date Procedure Procedure Detail Performing Clinician Start: 10-13-2018 Cul bact xcpt urine blood/stool aerobic isol [facility] Start: 01-27-2018 Cytopathology proced ure, preparation of smear, genital source [place] [place] Start: 11-30-2016 Pre-surgery evaluation Ngoc Michelle Other End: 09-12-2021 Depression screening Ngoc Michelle Other End: 12-09-2020 Diabetes mellitus screening Ngoc Martinez Other Payers Date Payer Category Payer Medicare [id number] 2014 Medicare [id number] 1980 Unknown [id number] [id number] 1980 Unknown [id number] [id number] 1981 Unknown [id number] 2.16.84 [id number] 1981 Unknown [id number] 2.16.84 [id number] 1981 Unknown [id number] 2.16.84 [id number] 1981 Unknown [id number] 2.16.84 [id number] 1958 Medicaid [id number] 2. [id number] 1958 Medicare [id number] 2. [id number] Social History Date Type Detail Facility Sex Assigned At [facility] [facility]: [facility]05[facility] Start: 1980 Sex Assigned At Female F [facility] Clinical Notes 04-20-2022 to 07-29-2023 Note Date & Type Note Facility 07-29-2023 Evaluation note Encounter Date Diagnosis Assessment Notes Jul, Left shoulder pain (ICD-10 - M25.512) [facility] [employer] Other 01-29-2024 NoteHNO ID: [id number] Author: RONNY MARTINEZ MD Service: ? Author Type: Physician Type: Progress Notes Filed: 07/26/2023 14:37 Note Text: VIRTUAL VISIT PROGRESS NOTE This is a virtual visit using [employer] Zoom Video Visit. It required patient-provider interaction for the medical decision making as documented below. I have communicated my name and active licensure. The patient's identity and physical location were verified at the time of this visit. Either the patient or their legal ambulatory services representative has been informed of the risks and benefits of -- and alternatives to -- treatment through a remote evaluation and consents to proceed with the evaluation remotely. Lam Moore is a 42 year old female seen for hypothyroidism. HISTORY REVIEWED (electronic chart updated): No past medical history on file. No past surgical history on file. No family history on file. No current outpatient medications on file. No current facility-administered medications for this visit. ALLERGIES Not on File HPI: 42 yo female patient with hx of asthma presenting for eval and management of hypothyroidism. Diagnosed with hypothyroidism after delivery of son who is now 2 years old. Not sure if tested Rain's disease, has a niece and grandniece with Rain's. Has been tired. Gained significant weight after delivery but able to lose most of what she gained. On Levothyroxine 75 mcg one tab daily, takes at least 15 minutes before coffee/meds/food, but only one hour before vitamin D. Takes vitamin at lunch. Last TSH in care everywhere is from March, normal with nl free T4. She states had some lab work this morning, and it did include thyroid tests including thyroid antibodies. Diarrhea sts, diagnosed with IBS. Periods regular for the most part . Sexually active. s/p tubal ligation. When asked about neck pain below, she said it is all in the back of the neck, gets spasms neck and shoulder. Described to her where thyroid is and she stated has no thyroid pain, no dysphagia, no concerns for thyroid enlargement. Answers submitted by the patient for this visit: Endocrine Review of Systems (Submitted on 07/26/2023) Fatigue: Yes Night sweats: Yes Recent unintentional weight change: No Skin Color Changes: Yes Post-Nasal Drip: Yes Thyroid Pain (lower neck): Yes Trouble Swallowing: Yes Chest pain: No Leg Swelling: Yes Blood Clots?: No Leg Pain while walking?: No Difficulty Breathing?: No Heartburn: No Vomiting: No Diarrhea: Yes Constipation: No Abdominal pain: Yes Bone Pain?: Yes Muscle aches: Yes Muscle weakness: Yes Joint pain or stiffness: Yes Headaches: Yes Dizziness: Yes Numbness?: Yes Urgency to Urinate?: No Increased Urination: No Slow or Small Urine Stream?: Yes Are your menstrual cycles regular?: Yes Are your menstrual cycles irregular?: No Have your menstrual cycles stopped?: No Flushing: Yes Hot Flashes?: No Increased Thirst: No Change in Body Hair?: Yes Cold Intolerance: Yes Heat Intolerance: No PHYSICAL EXAMINATION: VIDEO EXAM: (if completed, performed via video enabled technology) GENERAL: alert and appropriate, in no distress, well-hydrated, well nourished, and happy, smiling, interactive NECK: full ROM, no cervical LNs noted. No thyroid enlargement noted and no nodules. LABS: ASSESSMENT/PLAN: 42 yo female patient presenting for eval and management of hypothyroidism. Diagnosed with hypothyroidism after delivery of son who is now 2 years old. Not sure if tested Rain's disease, has a niece and grandniece with Rain's. Clinically euthyroid. On Levothyroxine 75 mcg one tab daily. Last TSH in care everywhere is from March, normal with nl free T4. She states had some lab work this morning, and it did include thyroid tests including thyroid antibodies. Recommend: Patient to share thyroid results when released to her as attachments with my chart message. Continue L-T4 at current dose pending thyroid lab results. But advised to space vitamin D or any supplement at least 4 hrs away from Levothyroxine. Discussed thyroid antibodies for Rain's is a one time test. No need to follow titer if positive. Need to monitor thyroid function/TSH. RTC TBD. Ronny Martinez [facility]01-05-2024 Evaluation note* Encounter Date Diagnosis Assessment Notes Treatment Notes Treatment Clinical Notes Jun, Bronchitis (ICD-10 - J40) Take antibiotic as directed. If develop wheezing, chest tightness, itching, bad cough, blue skin color, seizures, swelling of face, lips, tongue, or throat report to ED. Jun, Acute COVID-19 (ICD-10 - U07.1) Discussed quarantine protocol and symptom managment. no need for paxlovid - greater than 5 days since start of symptoms [facility] 01-04-2024 Evaluation note* Encounter Date Diagnosis Assessment Notes Treatment Notes Treatment Clinical Notes Jun, Left shoulder pain (ICD-10 - M25.512) [facility] 12-15-2023 Evaluation note* Encounter Date Diagnosis Assessment Notes Treatment Notes Treatment Clinical Notes May, Acquired hypothyroidism (ICD-10 - E03.9) Pt advised referral was sent on 05/27. She is welcome to make her own appt a [facility] as well. Will check labs in meantime. May, Fatigue, unspecified type (ICD-10 - R53.83) Pt agrees to labs. May, Left shoulder pain (ICD-10 - M25.512) Lam agrees to decrease dose to 5/325 w next fill in June. Reviewed OARRS. [facility] 12-07-2023 Evaluation note* Encounter Date Diagnosis Assessment Notes Treatment Notes Treatment Clinical Notes May, Left shoulder pain (ICD-10 - M25.512) [facility] 11-30-2023 Evaluation note* Encounter Date Diagnosis Assessment Notes Treatment Notes Treatment Clinical Notes Apr, Acquired hypothyroidism (ICD-10 - E03.9) [facility] 11-09-2023 Evaluation note* Encounter Date Diagnosis Assessment Notes Treatment Notes Treatment Clinical Notes Apr, Left shoulder pain (ICD-10 - M25.512) [facility] 10-12-2023 Evaluation note* Encounter Date Diagnosis Assessment Notes Treatment Notes Treatment Clinical Notes Mar, Left shoulder pain (ICD-10 - M25.512) Mar, Acquired hypothyroidism (ICD-10 - E03.9) [facility] 10-05-2023 Evaluation note* Encounter Date Diagnosis Assessment Notes Treatment Notes Treatment Clinical Notes Mar, Left shoulder pain (ICD-10 - M25.512) [facility] 09-14-2023 Evaluation note* Encounter Date Diagnosis Assessment Notes Treatment Notes Treatment Clinical Notes Feb, Moderate persistent asthmatic bronchitis with acute exacerbation (ICD-10 - J45.41) Discussed diagnosis with patient. Patient to start Zithromax. Patient to take Zithromax daily with food as prescribed. Finish entire course of antibiotic. Proair inhaler sent today for patient to use PRN cough/wheezing/shor tness of breath. . Increase fluids and rest. [id number] antipyretics as needed. Warning signs and symptoms reviewed with patient today. Patient to go immediately to the ER should she experience any of these. Patient to notify office should her symptoms persist and not improve. Patient verbalizes understanding and agrees to treatment plan. Feb, Left shoulder pain (ICD-10 - M25.512) Chronic problem, take med as prescribed. Reviewed OARRS report. Followup in 3 months. [facility] 08-17-2023 Evaluation note* Encounter Date Diagnosis Assessment Notes Treatment Notes Treatment Clinical Notes Jan, Acute thoracic back pain, unspecified back pain laterality (ICD-10 - M54.6) [facility] 07-20-2023 Evaluation note* Encounter Date Diagnosis Assessment Notes Treatment Notes Treatment Clinical Notes Dec, Acute thoracic back pain, unspecified back pain laterality (ICD-10 - M54.6) [facility] 06-22-2023 Evaluation note* Encounter Date Diagnosis Assessment Notes Treatment Notes Treatment Clinical Notes Nov, Acute thoracic back pain, unspecified back pain laterality (ICD-10 - M54.6) [facility] 06-07-2023 Evaluation note* Encounter Date Diagnosis Assessment Notes Treatment Notes Treatment Clinical Notes Nov, Moderate persistent asthma without complication (ICD-10 - J45.40) Nov, Vomiting with nausea, not intractable (ICD-10 - R11.2) Nov, Neck pain (ICD-10 - M54.2) OARRS report processed and reviewed and shows no violations. Pt understands to use only as needed and consider dose reduction at next OV. [facility] 06-07-2023 Evaluation note* Encounter Date Diagnosis Assessment Notes Treatment Notes Treatment Clinical Notes Nov, Moderate persistent asthma without complication (ICD-10 - J45.40) Chronic problem that is flared. Agrees to oral steroids. Nov, Vomiting with nausea, not intractable (ICD-10 - R11.2) Chronic problem. Requests refill of phenergan Nov, Neck pain (ICD-10 - M54.2) OARRS report processed and reviewed and shows no violations. Pt understands to use only as needed and consider dose reduction at next OV. [facility] 04-27-2023 Evaluation note* Encounter Date Diagnosis Assessment Notes Treatment Notes Treatment Clinical Notes Sep, Acute thoracic back pain, unspecified back pain laterality (ICD-10 - M54.6) [facility] 03-08-2023 Evaluation note* Encounter Date Diagnosis Assessment Notes Treatment Notes Treatment Clinical Notes Aug, Cellulitis of left breast (ICD-10 - N61.0) Acute problem - Start oral antibiotic to cover both face and breast for possible staph. Aug, Left shoulder pain (ICD-10 - M25.512) Followup next week with ortho Aug, Neck pain (ICD-10 - M54.2) Chronic problem - reviewed OARRS report. Recently decreased amount. Will continue to decrease with next rx. [facility] 03-08-2023 Evaluation note* Encounter Date Diagnosis Assessment Notes Treatment Notes Treatment Clinical Notes Aug, Cellulitis of left breast (ICD-10 - N61.0) Acute problem - Start oral antibiotic to cover both face and breast for possible staph. Aug, Left shoulder pain (ICD-10 - M25.512) Followup next week with ortho Aug, Neck pain (ICD-10 - M54.2) Chronic problem - reviewed OARRS report. Recently decreased amount. Will continue to decrease with next rx. Aug, Cellulitis, face (ICD-10 - L03.211) Should respond to antibiotic as listed above for the breast area. [facility] [phone] NotePROCEDURE: XR FOREARM RT 2V HISTORY: Falls ; fell down stairs, right forearm pain COMPARISON: None. FINDINGS: BONES:Transverse fracture through mid ulnar diaphysis without displacement. Unremarkable radius. SOFT TISSUES:No visible soft tissue swelling. EFFUSION:None visible. OTHER: Negative. IMPRESSION: 1. Acute, nondisplaced mid ulnar diaphyseal fracture. Electronically authenticated by: EVERARDO PORTER Date: 2022-04-20 07:54[facility] noteNo InformationNort Dailyevent Other Evaluation note* Diagnosis Onset Date Resolution Status Thoracic back pain acute [facility] Work Phone: History general Narrative - Reported* Type Description Date Medical History Asthma Medical History Depression Medical History GERD Medical History Fibromyalgia Medical History Anxiety Surgical History Left wrist fracture repair 2013 Surgical History Gall Bladder 2001 Surgical History Skin Graft Hospitalization History See Hospitalization History 1 Jun 2014 [facility] Summary Purpose Family History Relationship Condition Age at Onset Recorded Date/T juju family member Unknown Not Specified Family history of mental disorder Unknow n Advance Directives Advance Directive Response Recorded Date/ Time Advance Directives No September 27 9:03am Reason for Referral Reason *FU 06/04 Recent l abs normal in March on present dose, would like to have second opinion due to fatigue. Diagnosis 1 Acquired hypothyroid ism (E03.9) [facility] Referring Provider First Name Ngoc Referring Provider Last Name Michelle Referring Provider Specialty Family [facility] cine Referred Organization [facility] Ref[address] Address [address] [place], [place],[address] Referred Provider Specialty Endocrinolog y Referral Priority Routine General Notes Lucretia Ferro 12:22:13 PM >received today, attachments made, form filled out, referral faxed Chief Complaint and Reason for Visit Chief Complaint Amb Documentation Amb Documentation Check Up-Meds Reason for Visit Thoracic back pain Additional Source Comments INFORMATION SOURCE (unrecogn ized section and content) DATE CREATED AUTHOR 10/16/2018 [facility] DATE CREATED AUTHOR AUTHOR'S ORGANIZ ATION 11/05/2022 [facility] DATE CREATED AUTHOR AUTHOR'S ORGANIZ ATION 07/27/2023 [facility] DATE CREATED AUTHOR AUTHOR'S ORGANIZ ATION 09/23/2023 [facility] EPIC REASON FOR VISIT (unrecogniz ed section and content) Prescriptions3 month Follow uprefill3 month Follow uprefillNo Information3 month Follow uprefill3 month Follow uprefillRefill3 month Follow upRefillsmessagethyroid labsrefillreferralNo InformationrefillMed Check UpRefillCOVID Positive- [phone] Care Teams (unrecognized sec tion and content) Team Status: Active Member Role Status Dates Ngoc Martinez MD Primary Care Provider Active Team Status: Active Member Role Status Dates Provider Conversion Attending Provider Active St art: July 05, 2023 Team Status: Active Member Role Status Dates Ngoc Martinez MD Primary Care Provider Active Start: August 26, 2023 SANTA Roe Attending Provider Active Start : August 26, 2023 Team Status: Inactive Member Role Status Dates Ngoc Martinez MD Primary Care Provide r, Attending Provider Active Start: September 28, 2023 End: September 28, 2023 Goals (unrecognized section and content) Goals may be documented in a n alternate section FOR RECORDS PERTAINING TO PATIENTS WHO ARE OR HAVE BEEN ENROLLED IN A CHEMICAL DEPENDENCY/SUBSTANCEABUSE PROGRAM, SOME INFORMATION MAY BE OMITTED. This clinical summary was aggregated from multiple sources. Caution should be exercised in using it in the provision of clinical care. This summary normalizes information from multiple sources, and as a consequence, information in this document may materially change the coding, format and clinical context of patient data. In addition, data may be omitted in some cases. CLINICAL DECISIONS SHOULD BE BASED ON THE PRIMARY CLINICAL RECORDS. [facility] Center[facility]. provides no warranty or guarantee of the accuracy or completeness of information in this document.
--- NOTE | 2023-10-11 13:44 | US_ITS ---
[address] [address] Patient Name: LAM TORRES MRN: [id number] date: 1980 Sex: F Assigned Patient Location: [place] Current Patient Location: [place] Accession/Order Number: [id number] Exam Date: 10/11/2023 13:50 Report Date: 10/11/2023 15:00 At the request of: KATIE MORAN Procedure: US pelvis w/ transvaginal EXAMINATION: US pelvis w/ transvaginal HISTORY: Polycystic Ovarian Syndrome E28.2 COMPARISON: FINDINGS: Transabdominal and transvaginal images The uterus is normal in size and myometrial echotexture with no focal mass. 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 No focal myometrial mass. The uterus measures 8.8 x 4.2 x 5.9 cm. Endometrium measures 2.4 mm, normal. The ovaries are not definitively visualized. Prominent bilateral adnexal vascularity US/US pelvis w/ transvaginal IMPRESSION: Nonvisualization of the ovaries Prominent bilateral adnexal vascularity, consider pelvic vascular congestion/uterine vein reflux Suspected septate uterus Electronically authenticated by: OBED LOUISE Date: 10/11/2023 15:00
== END 2023-10-11 12:55 | disposition home or self-care (01) ==
PROVIDERS: PCP Family Medicine; Visit Provider Obstetrics & Gynecology
DX: E28.2 Polycystic ovarian syndrome (principal)
CPT/HCPCS: 76830; 76856

== ENCOUNTER 2023-10-13 13:27 | Outpatient (REF) | payer MEDICAID, MEDICARE, SELFPAY | END 2023-10-13 13:28 | disposition home or self-care (01) | LOC: LAB 13:27 | PROVIDERS: PCP Family Medicine; Visit Provider Obstetrics & Gynecology | DX: N92.6 Irregular menstruation, unspecified (principal) | CPT/HCPCS: 88305 ==

== ENCOUNTER 2023-10-27 08:07 | Outpatient (OUT) | payer MEDICAID, MEDICARE, SELFPAY ==
--- OUTSIDE RECORDS SUMMARY | 2023-10-27 08:14 | XMS_ITS | CCD ---
Author Organization [facility] Care Team Providers Care Vulcanizer Operator Name Role Phone JOSÉ SOSA Referring Unavailable [...] Referring Unavailable RONNY MARTINEZ Attending Unavailable KATIE VALADEZ Referring Unavailable KATIE VALADEZ Attending Unavailable KATIE VALADEZ Attending Unavailable MD Ngoc Martinez Primary Care Provider Katie Valadez Attending Provider Ngoc Martinez Primary Care Unavailable Katie Valadez Attending Unavailable Katie Valadez Admitting Unavailable Allergies Allergy Classification Reported Allergen(s) Allergy Type Date of Onset Reaction(s) Facility (20 sources) Acetaminophen / butalbital / Caffeine Drug Allergy Unknown [facility] Other (20 sources) cyclobenzaprine; Translations: [Flexeril] Drug Allergy 12-26-19 13 Unknown [facility] (20 sources) Sertraline Drug Allergy 09-28-19 24 Unknown, [facility] (20 sources) SUMAtriptan Drug Allergy 09-28-19 24 Unknown, [facility] (20 sources) topiramate Drug Allergy 09-28-19 24 Unknown, [facility] (20 sources) varenicline Drug Allergy 09-28-19 24 Unknown, [facility] (1 source) Acetaminophen / butalbital / Caffeine Drug Allergy 12-26-19 13 [facility] (1 source) diphenhydrAMINE Drug Allergy 12-26-19 13 [facility] (1 source) Iodine (And Iodine Containting Drugs) Drug allergy (disorder) [facility] (1 source) Plasmin Drug Allergy 12-26-19 13 [facility] (1 source) Progesterone Drug Allergy 07-14-19 15 [facility] (1 source) Sertraline Drug Allergy 12-26-19 13 [facility] (1 source) topiramate Drug Allergy 12-26-19 13 [facility] (1 source) traMADol Drug Allergy 06-15-20 16 [facility] (1 source) varenicline Drug Allergy [facility] (13 sources) Acetaminophen / butalbital / Caffeine / Codeine Drug Allergy Unknown [facility] Other (1 source) Contrast media Propensity to adverse reactions 09-11-19 17 Unknown [facility] Other (13 sources) Iodinated contrast media (substance) Drug allergy Unknown [facility] Other (1 source) Allergies Reconciled Propensity to adverse reactions 03-31-20 21 Unknown [facility] Other (1 source) patient allergy list reviewed by nurse or physicia Propensity to adverse reactions 02-17-20 19 Comment:Done [facility] Other (13 sources) MRI DYE Propensity to adverse reactions 10-20-19 17 Unknown [facility] Other (13 sources) Chantix *PSYCHOTHERAPEUTIC AND NEUROLOGICAL AGENTS Propensity to adverse reactions Unknown [facility] Other (13 sources) Contrast Allergy PreMed Pack *CORTICOSTEROIDS* Propensity to adverse reactions Comment:MRI DYE [facility] Other (13 sources) Flexeril *MUSCULOSKELETAL THERAPY AGENTS* Propensity to adverse reactions Unknown [facility] Other (3 sources) Acetaminophen Drug Allergy 09-28-19 24 [facility] (3 sources) butalbital Drug Allergy 09-28-19 24 [facility] (3 sources) Caffeine Drug Allergy 09-28-19 24 [facility] (3 sources) cyclobenzaprine Drug Allergy 09-28-19 24 [facility] (3 sources) Iodinated Contrast Media Allergy to substance 09-28-19 24 [facility] (3 sources) Chantix *PSYCHOTHERAPEUTIC AND Allergy to substance 09-28-19 24 [facility] (3 sources) Contrast Allergy PreMed Pack * Allergy to substance 07-05-19 Comment:MRI [facility] (3 sources) Fioricet/Codeine Allergy to substance 09-28-19 [facility] Medications Current Medications Medication Drug Class(es) [...] as needed Orally every 6 hrs Not-Taking [id number] actuat albuterol 0.09 mg/actuat metered dose [...] tab daily x 4 more days for Feb, Active 120 actuat budesonide 0.08 mg/actuat [...] oral tablet (20 sources) l-Thyroxine Start: 09-27-2023 End: 09-28-2023 take 1 tablet by mouth once daily Levothyroxine Active 75 MCG PO Daily September 28, 2023 7:38pm [employer]: TAKE ONE TABLET BY MOUTH DAILY; [...] (20 sources) Leukotriene Receptor Antagonist Start: 09-27-2023 End: 09-28-2023 take 1 tablet by mouth once daily at bedtime Montelukast (Singulair) 10 mg tablet Active 10 MG PO Daily at bedtime September 28, 2023 7:38pm [employer] tablet Orally at bedtime; Note: Source Status: Taking; Provider: Michelle Grossman ( ) take 1 tablet by mouth at bedtim e Singulair 10 mg 1 tablet Orally at bedtime Active Pre-Ruthy (20 sources) Pre- Active predniSONE 20 mg [...] A DAY FOR 30 DAYS for 30 Mar, Active Start: 07-01-2022 take 1 capsule [...] a day for 10 day(s) Aug, Active [facility] Electrodes (1 source) Start: 10-26-2023 Tens Unit And Electrodes Active 0 .Route October 26, 2023 12:00am As directed tiZANidine 4 mg oral tablet (9 sources) Central alpha-2 Adrenergic Agonist Start: 09-28-2023 [...] day Not-Taking cephalexin 500 mg oral tablet (16 sources) Cephalosporin Antibacterial Start: 09-28-2023 End: 09-28-2023 [...] sources) High risk drug monitoring status; Translations: [long-term (current) use of opiate analgesic] Episodic Other aftercare (1 source) Long-term current use of inhaled steroid; Translations: [long-term (current) use of inhaled steroids] Episodic Other [...] Other assisted (current) drug therapy; Translations: [OTH DIRECTOR OF SCOUT WORK CURRENT DRUG THERAPY] Onset: 04-21-2022 Episodic Other [...] Results Test Name Value Interpretation Reference Range Facility [facility] 10-13-2023 L Specimen: [id number] Received: 10/14/23 Status: JULIAN Amaya Num: [id number] Spec Type: Surgical Subm Dr: Katie Valadez Tissues: A Endometrium - Biopsy (ENDOMETRIAL BX) Procedures: HE/2, Gross/Micro L4 Age/ Patient Sex Location Account Attending Physician Lam Moore 43/F [place] [id number] Katie Valadez SPEC NUM: [id number] RECD: 10/14/23 STATUS: JULIAN AMAYA NUM: [id number] WHIT: 10/13/23- SUBM DR: Katie Valadez ENTERED: 10/14/23 [facility] DR: SPEC TYPE: Surgical DEPT: S ENTERED BY: [id number] RECV BY: [id number] ORDERED: HE/2, Gross/Micro L4 ORDERED: HE/2, Gross/Micro L4 Pathological Diagnosis Endometrial biopsy: -Patchy mucoid exudation with some admixed portion of squamous and glandular elements of the cervix without dysplasia, also may include only very rare suspected or crushed endometrial element, and overall is very limited for any appropriate endometrial assessment of note Gross Description The specimen is received in formalin, labeled with the patient's name and endometrial Bx , consisting of an aggregate of minute flores tissue and mucus altogether measuring 2.1 x 0.5 x 0.1 cm, entirely submitted in A1. Clinical history: Irregular menstrual cycle [facility] Codes 08213 Specimen: [id number] Received: 10/14/23 Status: JULIAN Amaya Num: [id number] Spec Type: Surgical Subm Dr: Katie Valadez Tissues: A Endometrium - Biopsy (ENDOMETRIAL BX) Procedures: WILLIAM/Amy, Gross/Micro L4 Patient: Lam Moore [id number] (Continued) Signed (signature on file) Douglas Deleon MD 10/18/232101 Normal [facility] Basophils Auto (Bld) [#/Vol] on 09-28-2023 Basophils (Bld) [#/Vol] 0.1 10 3/uL 0.0-0.1 [facility] Basophils/100 WBC Auto (Bld) on 09-28-2023 Basophils/100 WBC (Bld) 0.8 % 0.2-2.[address] [facility] Eosinophils/100 WBC Auto (Bl d)on 09-28-2023 Eosinophils/100 WBC (Bld) 3.4 % 0.9-7.0 [facility] Erythrocyte distribution wid th Auto (RBC) [Ratio]on 09-28-2023 Erythrocyte distribution width (RBC) [Ratio] 13.1 % 11.0-15.0 [facility] Glucose mean value [Mass/vol ume] in Blood Estimated from glycated hemoglobinon 09-28-2023 Average glucose Estimated from glycated hemoglobin (Bld) [Mass/Vol] 91 mg/dL [facility] Hematocrit Auto (Bld) [Volum e fraction]on 09-28-2023 Hematocrit (Bld) [Volume fraction] 41.1 % 36.0-48.0 [facility] Hemoglobin [Mass/volume] in Bloodon 09-28-2023 Hemoglobin (Bld) [Mass/Vol] 13.3 g/dL 12.0-16.0 [facility] Laboratory - Chemistry and C hemistry - challengeon 09-28-2023 Free T4 [Mass/Vol] 0.93 ng/dL 0.76-1.46 [facility] TSH Qn 1.327 m[IU]/L 0.358-3.74 0 [facility] - Hematology and Cell countson 09-28-2023 HbA1c (Bld) [Mass fraction] 4.8 % 4.5-6.2 [facility] Comment on above: ADA RECOMMENDED LIMI T 4.0 - 6.0ADA THERAPEUTIC TARGET < 7.0ACTION SUGGESTED> 7.0 Immature granulocytes/100 WBC (Bld) 0.1 % 0.0-0.5 [facility] Leukocytes [#/volume] correc gem for nucleated erythrocytes in Blood by Automated counon 09-28-2023 WBC corrected for nucl RBC Auto (Bld) [#/Vol] 7.1 10 3/uL 4.0-11.0 [facility] Lymphocytes Auto (Bld) [#/Vo l]on 09-28-2023 Lymphocytes (Bld) [#/Vol] 2.8 10 3/uL 1.2-3.8 [facility] Lymphocytes/100 WBC Auto (Bl d)on 09-28-2023 Lymphocytes/100 WBC (Bld) 39.0 % 20.5-60.0 [facility] MCH Auto (RBC) [Entitic mass ]on 09-28-2023 MCH (RBC) [Entitic mass] 30.6 pg 26.7-34.0 [facility] MCHC Auto (RBC) [Mass/Vol]on 09-28-2023 MCHC (RBC) [Mass/Vol] 32.4 g/dL 29.9-35.2 [facility] MCV Auto (RBC) [Entitic vol] on 09-28-2023 MCV (RBC) [Entitic vol] 94.5 fL 81.0-99.[address] [facility] Monocytes Auto (Bld) [#/Vol] on 09-28-2023 Monocytes (Bld) [#/Vol] 0.5 10 3/uL 0.3-0.8 [facility] Monocytes/100 WBC Auto (Bld) on 09-28-2023 Monocytes/100 WBC (Bld) 7.3 % 1.7-12.[address] [facility] Neutrophils Auto (Bld) [#/Vo l]on 09-28-2023 Neutrophils (Bld) [#/Vol] 3.5 10 3/uL 1.4-6.5 [facility] Neutrophils/100 WBC Auto (Bl d)on 09-28-2023 Neutrophils/100 WBC (Bld) 49.4 % 43.0-75.0 [facility] No Panel Informationon 09-27 Dehydroepiandrosterone (DHEA) 330 ng/dL 31-701 [facility] Comment on above: This test was develo ped and its performance characteristicsdetermined by [employer]. It has not been cleared orapproved by the Food and Drug Administration.Performed at: [address] [id number] Director: Ragini Enriquez MD, Phone: [phone] Dehydroepiandrosterone Sulfate 98.1 ug/dL 57.3-279.2 [facility] Eosinophils # (Auto) 0.2 10 3/uL 0.0-0.7 [facility] Follicle Stimulating Hormone 32.8 mIU/mL . [facility] Comment on above: Adult Female Range F ollicular phase 3.5 - 12.5 Ovulation phase 4.7 - 21.5 Luteal phase 1.7 - 7.7 Postmenopausal 25.8 - 134.8Performed at: [address] [id number] Director: Julius Meza PhD, Phone: [phone] Human Chorionic Gonadotropin, Quant <1 mIU/mL [facility] Comment on above: 5-50 0.2-1 EBQX12-02 0 1-2 KPWDG005-3,000 2-3 VEQQS183-63,000 3-4 WEEKS1,000-50,000 4-5 WEEKS10,000-100,000 5-6 WEEKS15,000-200,000 6-8 WEEKS10,000-100,000 2-3 MONTHS Immature Granulocyte # (Auto) 0.01 10 3/uL 0.00-0.03 [facility] Platelet mean volume Auto (B ld) [Entitic vol]on 09-28-2023 Platelet mean volume (Bld) [Entitic vol] 10.0 fL 9.5-13.5 [facility] Platelets Auto (Bld) [#/Vol] on 09-28-2023 Platelets (Bld) [#/Vol] 286 10 3/uL 150-450 [facility] RBC Auto (Bld) [#/Vol]on RBC (Bld) [#/Vol] 4.35 10 6/uL 4.20-5.40 [facility] Serum or plasma lutropin geoff surement (units/volume)on 09-28-2023 Lutropin Qn 19.0 m[IU]/mL . [facility] Comment on above: Adult Female Range F ollicular phase 2.4 - 12.6 Ovulation phase 14.0 - 95.6 Luteal phase 1.0 - 11.4 Postmenopausal 7.7 - 58.5 BI MAMMOGRAM DIAGNOSTIC ERI SYNTHESIS LEFTon 08-02-2023 [...] VERY IMPORTANT TO YOUR HEALTH. THE CURRENT [employer]PREHENSIVE CANCER [...] PAP ACOG PANEL 2: 30 to 65on 11-04-2022 . . Normal [facility] Comment on above: Result Comment: Perf ormed at: WB Performed By: #### [id number] #### [facility] [address] [address] [address] Kleber Deleon Age Gdln ACOG Testing 30-65 Normal [facility] Comment on above: Performed By: #### [id number] #### [facility] [address] [place] [address] Dr. Kleber Deleon DIAGNOSIS: Comment Normal [facility] Comment on above: Result Comment: NEGA TIVE FOR INTRAEPITHELIAL LESION OR MALIGNANCY. Performed at: WB Performed By: #### [id number] #### [facility] [address] [place] [address] Dr. Kleber Deleon HPV Aptima Negative Normal Negative [facility] Comment on above: Result Comment: This nucleic acid amplification test detects fourteen high-risk HPV types (16,18,31,33,35,39,45,51,52,56,58,59,66,68) without differentiation. Performed at: =G Performed By: #### [id number] #### [facility] [address] [place] [address] Dr. Kleber Deleon HPV Genotype Reflex Comment Normal [facility] Comment on above: Result Comment: Crit eria not met, HPV Genotype not performed. Performed at: WB Performed By: #### [id number] #### [facility] [address] [place] [address] Dr. Kleber Deleon Methodology: Comment Normal [facility] Comment on above: Result Comment: This liquid based ThinPrep(R) pap test was screened with the use of an image guided system. Performed at: WB Performed By: #### [id number] #### [facility] [address] [place] [address] Dr. Kleber Deleon Note: Comment Normal [facility] Comment on above: Result Comment: The Pap smear is a screening test designed to aid in the detection of premalignant and malignant conditions of the uterine cervix. It is not a diagnostic procedure and should not be used as the sole means of detecting cervical cancer. Both false-positive and false-negative reports do occur. . Performed at: WB Performed By: #### [id number] #### [facility] [address] [place] [address] Dr. Kleber Deleon Performed by: Comment Normal [facility] Comment on above: Result Comment: Alyssa Henderson, Pulp House Supervisor (ASCP) Performed at: WB Performed By: #### [id number] #### [facility] [address] [place], [place] [address] Dr. Kleber Deleon Specimen adequacy: Comment Normal [facility] Comment on above: Result Comment: Sati sfactory for evaluation. Endocervical and/or squamous metaplastic cells (endocervical component) are present. Performed at: WB Performed By: #### [id number] #### [facility] [address] [place], [place] [address] Dr. Kleber Deleon XR FACIAL MIN 3 VIEWSon 03-29 XR FACIAL MIN 3 VIEWS EXAM: XR FACIAL MN N 3 VIEWS HISTORY: Falls ; fell downstairs, facial pain COMPARISON: None. TECHNIQUE: FINDINGS: No visible fracture of the facial bones. Orbital rims are intact. No fluid levels within the paranasal sinuses. IMPRESSION: 1. No acute bone abnormality. Electronically authenticated by: EVERARDO PORTER Date: 2022-04-20 07:52 Normal [facility] Cult,Genitalon 10-16-2018 Cult,Genital Specimen Description .VAGINA Special Requests NOT REPORTED Culture NORMAL URO-GENITAL DAVI STREPTOCOCCI, BETA HEMOLYTIC GROUP B ISOLATED. NEGATIVE FOR NEISSERIA GONORRHOEAE Report Status FINAL 10/16/2018 Normal [facility] Comment on above: Performed By: #### G EC #### [address] [id number] Union Steward: Bob Whitehead MD [facility] [address] [place] [address] [place] [address] Union Steward: Jorge Luis Nina MD Cytologyon 01-27-2018 Cytology (NOTE) [id number] [facility] ANATOMIC PATHOLOGY [address] [place], [place] [address] GYNECOLOGIC CYTOLOGY REPORT Patient Name: LAM MOORE MR#: [id number] Specimen #[id number] Source: 1: Cervical material, (ThinPrep vial, Imaging-assisted review) Clinical History Z01.419 Routine leadership development manager exam without abnormal findings High Risk HPV DNA testing is requested if the diagnosis is ASC-US History of: Cervical lesion destruction LMP: 12/30/17 INTERPRETATION Cervical material, (ThinPrep vial, Imaging-assisted review): Specimen Adequacy: Satisfactory for evaluation. - Endocervical/transformatio n zone component present. Descriptive Diagnosis: Negative for intraepithelial lesion or malignancy. Pulp House Supervisor: JEOVANY Gerber(ASCP) Electronically Signed Out mathew/02/16/2018 [facility] Comment on above: Performed By: #### P PPVP #### [address] [address] [place], [place] [id number] Vital Signs Date Time Vital Sign Value Performing Clinician Facility 10-26-2023 11:04-0400 Body height 175.26 cm MD Ngoc Martinez Work Phone: [facility] 10-26-2023 11:04-0400 Body mass index (BMI) [Ratio] 25.8 kg/m2 MD Ngoc Martinez Work Phone: [facility] 10-26-2023 11:04-0400 Body weight 79.43 kg MD Ngoc Martinez Work Phone: [facility] 10-26-2023 11:04-0400 Diastolic blood pressure 86 mm[Hg] MD Ngoc Martinez Work Phone: [facility] 10-26-2023 11:04-0400 Heart rate 73 /min MD Ngoc Martinez Work Phone: [facility] 10-26-2023 11:04-0400 Systolic blood pressure 121 mm[Hg] MD Ngoc Martinez Work Phone: [facility] 09-28-2023 13:33-0400 Body height 175.26 cm [facility] 09-28-2023 13:33-0400 Body mass index (BMI) [Ratio] 24.8 kg/m2 [facility] 09-28-2023 13:33-0400 Body weight 76.43 kg [facility] 09-28-2023 13:33-0400 Diastolic blood pressure 91 mm[Hg] [facility] 09-28-2023 13:33-0400 Heart rate 64 /min [facility] 09-28-2023 13:33-0400 Systolic blood pressure 128 mm[Hg] [facility] 06-11-2023 10:15-0500 Body height 175.26 cm Ngoc Martinez Other [facility] Other 06-11-2023 10:15-0500 Body mass index (BMI) [Ratio] 25.99 kg/m2 Ngoc Martinez Other [facility] Other 06-11-2023 10:15-0500 Body weight 79.83 kg Ngoc Martinez Other [facility] Other 06-11-2023 10:15-0500 Diastolic blood pressure 76 mm[Hg] Ngoc Martinez Other [facility] Other 06-11-2023 10:15-0500 Systolic blood pressure 125 mm[Hg] Ngoc Martinez Other [facility] Other 03-11-2023 11:15-0400 Body height 175.26 cm Ngoc Martinez Other [facility] Other 03-11-2023 11:15-0400 Body mass index (BMI) [Ratio] 26.73 kg/m2 Ngoc Martinez Other [facility] Other 03-11-2023 11:15-0400 Body weight 82.1 kg Ngoc Martinez Other [facility] Other 03-11-2023 11:15-0400 Diastolic blood pressure 74 mm[Hg] Ngoc Martinez Other [facility] Other 03-11-2023 11:15-0400 Respiratory rate 20 /min Ngoc Martinez Other [facility] Other 03-11-2023 11:15-0400 Systolic blood pressure 118 mm[Hg] Ngoc Martinez Other [facility] Other 12-02-2022 09:00-0400 Body height 175.26 cm Ngoc Martinez Other [facility] Other 12-02-2022 09:00-0400 Body mass index (BMI) [Ratio] 26.73 kg/m2 Ngoc Martinez Other [facility] Other 12-02-2022 09:00-0400 Body weight 82.1 kg Ngoc Martinez Other [facility] Other 12-02-2022 09:00-0400 Diastolic blood pressure 72 mm[Hg] Ngoc Martinez Other [facility] Other 12-02-2022 09:00-0400 Systolic blood pressure 112 mm[Hg] Ngoc Martinez Other [facility] Other 09-02-2022 08:45-0500 Body height 175.26 cm Ngoc Martinez Other [facility] Other 09-02-2022 08:45-0500 Body mass index (BMI) [Ratio] 27.61 kg/m2 Ngoc Martinez Other [facility] Other 09-02-2022 08:45-0500 Body weight 84.82 kg Ngoc Martinez Other [facility] Other 09-02-2022 08:45-0500 Diastolic blood pressure 84 mm[Hg] Ngoc Martinez Other [facility] Other 09-02-2022 08:45-0500 SaO2% (BldA) [Mass fraction] 99 % Ngoc Martinez Other [employer] [facility] [email or web address] Other 09-02-2022 08:45-0500 Systolic blood pressure 142 mm[Hg] Ngoc Martinez Other [facility] Other Encounters Encounter Date Encounter Type Care Provider Facility Start: 10-26-2023 End: 10-26-2023 ambulatory MD Ngoc Martinez Work Phone: [facility] Work Phone: Start: 10-26-2023 End: 10-26-2023 Patient encounter procedure MD Ngoc Martinez Work Phone: [facility] Work Phone: Start: 10-13-2023 End: 10-13-2023 ambulatory Ngoc Martinez Facility:[facility] Start: 10-13-2023 End: 10-13-2023 Departed Referred MD Ngoc Martinez Work Phone: [facility] Start: 10-13-2023 End: 10-13-2023 ambulatory KATIE LUISA Not Available Start: 09-28-2023 End: 09-28-2023 ambulatory [facility] Work Phone: Start: 09-28-2023 End: 09-28-2023 Patient encounter procedure [facility] Work Phone: Start: 09-21-2023 End: 09-21-2023 ambulatory KATIE LUISA Not Available Start: 08-26-2023 Non-patient / Non-visit [facility] [place] Work Phone: Start: 08-26-2023 Non-patient / Non-visit [facility] [place] Work Phone: Start: 08-02-2023 End: 08-03-2023 ambulatory KATIE LUISA Not Available Start: 07-29-2023 End: 07-29-2023 ambulatory Ngoc Martinez Other [facility] Other Start: 07-29-2023 Telephone encounter Ngoc Martinez [facility] Start: 07-26-2023 End: 07-26-2023 ambulatory NGOC Valdo MICHELLE Facility:[facility] Start: 07-05-2023 Patient encounter procedure [facility]- Start: 07-02-2023 End: 07-02-2023 ambulatory Ngoc Martinez Other [facility] Other Start: 07-02-2023 Office outpatient vi sit 15 minutes Ngoc Martinez [facility] Start: 07-01-2023 End: 07-01-2023 ambulatory Ngoc Michelle Other [facility] Other Start: 07-01-2023 Telephone encounter Ngoc Martinez [facility] Start: 06-11-2023 End: 06-11-2023 ambulatory Ngoc Michelle Other [facility] Other Start: 06-11-2023 Office outpatient vi sit 15 minutes Ngoc Martinez [facility] Start: 06-03-2023 End: 06-03-2023 ambulatory Ngoc Michelle Other [facility] Other Start: 06-03-2023 Telephone encounter Ngoc Martinez [facility] Start: 06-02-2023 End: 06-02-2023 ambulatory Ngoc Michelle Other [facility] Other Start: 06-02-2023 Telephone encounter Ngoc Martinez [facility] Start: 05-27-2023 End: 05-27-2023 ambulatory Ngoc Martinez Other [facility] Other Start: 05-27-2023 Telephone encounter Ngoc Martinez [facility] Start: 05-06-2023 End: 05-06-2023 ambulatory Ngoc Michelle Other [facility] Other Start: 05-06-2023 Telephone encounter Ngoc Martinez [facility] Start: 04-14-2023 End: 04-14-2023 ambulatory Ngoc Martinez Other [facility] Other Start: 04-14-2023 Telephone encounter Ngoc Martinez [facility] Start: 04-08-2023 End: 04-08-2023 ambulatory Ngoc Martinez Other [facility] Other Start: 04-08-2023 Telephone encounter Ngoc Martinez [facility] Start: 04-01-2023 End: 04-01-2023 ambulatory Ngoc Martinez Other [facility] Other Start: 04-01-2023 Telephone encounter Ngoc Martinez [facility] Start: 03-11-2023 End: 03-11-2023 ambulatory Ngoc Martinez Other [facility] Other Start: 03-11-2023 Office outpatient vi sit 15 minutes Ngoc Martinez [facility] Start: 02-11-2023 End: 02-11-2023 ambulatory Ngoc Martinez Other [facility] Other Start: 02-11-2023 Telephone encounter Ngoc Martinez [facility] Start: 01-14-2023 End: 01-14-2023 ambulatory Ngoc Martinez Other [facility] Other Start: 01-14-2023 Telephone encounter Ngoc Martinez [facility] Start: 12-17-2022 End: 12-17-2022 ambulatory Ngoc Martinez Other [facility] Other Start: 12-17-2022 Telephone encounter Ngoc Martinez [facility] Start: 12-02-2022 End: 12-02-2022 ambulatory Ngoc Martinez Other [facility] Other Start: 12-02-2022 Office outpatient vi sit 15 minutes Ngoc Martinez [facility] Start: 11-20-2022 End: 11-20-2022 ambulatory Ngoc Martinez Other [facility] Other Start: 11-20-2022 Telephone encounter Ngoc Martinez [facility] Start: 10-27-2022 End: 10-27-[address] KATIE VALADEZ . Facility:[facility] Start: 10-22-2022 End: 10-22-2022 ambulatory Ngoc Martinez Other [facility] Other Start: 10-22-2022 Telephone encounter [facility] [facility] Start: 09-24-2022 End: 09-24-2022 ambulatory Ngoc Martinez Other [facility] Other Start: 09-24-2022 Telephone encounter Ngoc Martinez [facility] Start: 09-02-2022 End: 09-02-2022 ambulatory Ngoc Martinez Other [facility] Other Start: 09-02-2022 Office outpatient vi sit 15 minutes Ngoc Martinez [facility] Start: 08-28-2022 End: 08-28-2022 ambulatory Ngoc Martinez Other [facility] Other Start: 08-28-2022 Telephone encounter Ngoc Martinez [facility] Start: 04-30-2022 Gynecological examination normal Ngoc Martinez Other [facility] Other Start: 04-20-2022 End: 04-20-2022 ambulatory MARIO FIELD . Facility:[facility] Start: 11-10-2021 End: 11-10-2021 Pre-procedure evaluation check Ngoc Martinez Other [facility] Other Start: 10-13-2018 End: 10-14-2018 [facility]: [facility]2018 Encounter for gynecological examination (general) (routine) [facility]: 01-27-2018 End: 01-28-2018 Patient encounter procedure JOSÉ King [facility] Procedures Date Procedure Procedure Detail Performing Clinician Start: 10-13-2018 Cul bact xcpt urine blood/stool aerobic isol JOSÉ SOSA Start: 01-27-2018 Cytopathology proced ure, preparation of smear, genital source JOSÉ SOSA Start: 11-30-2016 Pre-surgery evaluation Ngoc Martinez Other End: 09-12-2021 Depression screening Ngoc Martinez Other End: 12-09-2020 Diabetes mellitus screening Ngoc Martinez Other Plan of Treatment Date Care Activity Detail Author XR Lumbar spine 2 or 3 Views [facility] Payers Date Payer Category Payer Medicare [id number] 2014 Medicare [id number] 1980 Unknown [id number] 2.16.8 [id number] 1980 Unknown [id number] 2.16.8 [id number] 1980 Unknown [id number] 2.16.84 [id number] 1980 Unknown [id number] 2.16.84 [id number] 1981 Unknown [id number] 2.16.84 [id number] 1980 Unknown [id number] 2.16.84 [id number] 1980 Unknown [id number] 2.16.84 [id number] 1958 Medicaid [id number] 2. [id number] 1958 Medicare [id number] 2. [id number] Social History Date Type Detail Facility Sex Assigned At [place] [facility] Other Start: 07-05-2023 Tobacco smoking stat us NHIS Smoker (finding) [facility] Start: 1980 Sex Assigned At Female F [facility] Clinical Notes 04-20-2022 to 07-29-2023 Note Date & Type Note Facility 07-29-2023 Evaluation note Encounter Date Diagnosis Assessment Notes Jul, Left shoulder pain (ICD-10 - M25.512) [facility] [email or web address] Other 01-29-2024 NoteHNO ID: [id number] Author: RONNY MARTINEZ MD Service: ? Author Type: Physician Type: Progress Notes Filed: 07/26/2023 14:37 Note Text: VIRTUAL VISIT PROGRESS NOTE This is a virtual visit using [employer] Video Visit. It required patient-provider interaction for the medical decision making as documented below. I have communicated my name and active licensure. The patient's identity and physical location were verified at the time of this visit. Either the patient or their legal advertising account representative has been informed of the risks [...] to monitor thyroid function/TSH. RTC TBD. Ronny Martinez, [facility]01-05-2024 Evaluation note* Encounter Date Diagnosis Assessment [...] than 5 days since start of symptoms [facility] Other 01-04-2024 Evaluation note* Encounter Date Diagnosis Assessment Notes Treatment Notes Treatment Clinical Notes Jun, Left shoulder pain (ICD-10 - M25.512) [facility] Other 12-15-2023 Evaluation note* Encounter Date Diagnosis Assessment Notes Treatment Notes Treatment Clinical Notes May, Acquired hypothyroidism (ICD-10 - E03.9) Pt advised referral was sent on 05/27. She is welcome to make her own appt a [facility] as well. Will check labs in meantime. May, Fatigue, unspecified type (ICD-10 - R53.83) Pt agrees to labs. May, Left shoulder pain (ICD-10 - M25.512) Lam agrees to decrease dose to 5/325 w next fill in June. Reviewed O[facility]. [facility] Other 12-07-2023 Evaluation note* Encounter Date Diagnosis Assessment Notes Treatment Notes Treatment Clinical Notes May, Left shoulder pain (ICD-10 - M25.512) [facility] Other 11-30-2023 Evaluation note* Encounter Date Diagnosis Assessment Notes Treatment Notes Treatment Clinical Notes Apr, Acquired hypothyroidism (ICD-10 - E03.9) [facility] Other 11-09-2023 Evaluation note* Encounter Date Diagnosis Assessment Notes Treatment Notes Treatment Clinical Notes Apr, Left shoulder pain (ICD-10 - M25.512) [facility] Other 10-12-2023 Evaluation note* Encounter Date Diagnosis Assessment Notes Treatment Notes Treatment Clinical Notes Mar, Left shoulder pain (ICD-10 - M25.512) Mar, Acquired hypothyroidism (ICD-10 - E03.9) [facility] Other 10-05-2023 Evaluation note* Encounter Date Diagnosis Assessment Notes Treatment Notes Treatment Clinical Notes Mar, Left shoulder pain (ICD-10 - M25.512) [facility] Other 09-14-2023 Evaluation note* Encounter Date Diagnosis [...] of breath. . Increase fluids and rest. Zyju-rlw-[id number] antipyretics as needed. Warning signs and symptoms reviewed with patient today. Patient to go immediately to the ER should she experience any of these. Patient to notify office should her symptoms persist and not improve. Patient verbalizes understanding and agrees to treatment plan. Feb, Left shoulder pain (ICD-10 - M25.512) Chronic problem, take med as prescribed. Reviewed OARRS report. Followup in 3 months. [facility] Other 08-17-2023 Evaluation note* Encounter Date Diagnosis Assessment Notes Treatment Notes Treatment Clinical Notes Jan, Acute thoracic back pain, unspecified back pain laterality (ICD-10 - M54.6) [facility] Other 07-20-2023 Evaluation note* Encounter Date Diagnosis Assessment Notes Treatment Notes Treatment Clinical Notes Dec, Acute thoracic back pain, unspecified back pain laterality (ICD-10 - M54.6) [facility] Other 06-22-2023 Evaluation note* Encounter Date Diagnosis Assessment Notes Treatment Notes Treatment Clinical Notes Nov, Acute thoracic back pain, unspecified back pain laterality (ICD-10 - M54.6) [facility] Other 06-07-2023 Evaluation note* Encounter Date Diagnosis Assessment Notes Treatment Notes Treatment Clinical Notes Nov, Moderate persistent asthma without complication (ICD-10 - J45.40) Nov, Vomiting with nausea, not intractable (ICD-10 - R11.2) Nov, Neck pain (ICD-10 - M54.2) OAR[place] report processed and reviewed and shows no violations. Pt understands to use only as needed and consider dose reduction at next OV. [facility] Other 06-07-2023 Evaluation note* Encounter Date Diagnosis [...] and consider dose reduction at next OV. [facility] Other 04-27-2023 Evaluation note* Encounter Date Diagnosis Assessment Notes Treatment Notes Treatment Clinical Notes Sep, Acute thoracic back pain, unspecified back pain laterality (ICD-10 - M54.6) [facility] Other 03-08-2023 Evaluation note* Encounter Date Diagnosis [...] Will continue to decrease with next rx. [facility] Other 03-08-2023 Evaluation note* Encounter Date Diagnosis Assessment Notes Treatment Notes Treatment Clinical Notes 08 Mar, 2023 Cellulitis of left breast (ICD-10 - N61.0) [...] as listed above for the breast area. [facility] Other [id number] NotePROCEDURE: XR FOREARM RT 2V HISTORY: Falls ; fell down stairs, right forearm pain COMPARISON: None. FINDINGS: BONES:Transverse fracture through mid ulnar diaphysis without displacement. Unremarkable radius. SOFT TISSUES:No visible soft tissue swelling. EFFUSION:None visible. OTHER: Negative. IMPRESSION: 1. Acute, nondisplaced mid ulnar diaphyseal fracture. Electronically authenticated by: EVERARDO PORTER Date: 2022-04-20 07:54[facility] note[facility] InformationNort [employer] Other Evaluation note* Diagnosis Onset Date Resolution Status Thoracic back pain acute [facility] Work Phone: Evaluation note* Diagnosis Onset Date Resolution Status Thoracic back pain acute Acute lumbar back pain acute Thoracic back pain [facility] Work Phone: History general Narrative - Reported* Type Description Date Medical History Asthma Medical History Depression Medical History GERD Medical History Fibromyalgia Medical History Anxiety Surgical History Left wrist fracture repair 2013 Surgical History Gall Bladder 2001 Surgical History Skin Graft Hospitalization History See Hospitalization History 1 Jun 2014 [facility] Other Summary Purpose Family History Relationship Condition [...] 1 Acquired hypothyroid ism (E03.9) Referral Organization [facility]ha Referring Provider First Name Ngoc Referring Provider Last Name Michelle Referring Provider Specialty Family Medi cine Referred Organization [facility] Referred Address [address] [place], [place],[address] Referred Provider Specialty Endocrinolog y Referral Priority Routine General Notes Lucretia Ferro 12:22:13 PM >received today, attachments made, form filled out, referral faxed Chief Complaint and Reason for Visit Chief Complaint Amb Documentation Amb Documentation Check Up-Meds Reason for Visit Thoracic back pain Chief Complaint Amb Documentation Amb Documentation Check Up-Meds Unknown Reason for Visit Thoracic back pain Chief Complaint Amb Documentation Amb Documentation Check Up-Meds Unknown back pain Reason for Visit Thoracic back pain Acute lumbar back pain Thoracic back pain Additional Source Comments INFORMATION SOURCE (unrecogn ized section and content) DATE CREATED AUTHOR 10/16/2018 [facility] DATE CREATED AUTHOR AUTHOR'S ORGANIZ ATION 11/05/2022 [facility] DATE CREATED AUTHOR AUTHOR'S ORGANIZ ATION 07/27/2023 [facility] DATE CREATED AUTHOR AUTHOR'S ORGANIZ ATION 10/14/2023 [facility] EPIC DATE CREATED AUTHOR AUTHOR'S ORGANIZ ATION 10/19/2023 [facility] REASON FOR VISIT (unrecogniz ed section and content) Prescriptions3 month Follow uprefill3 month Follow uprefillNo Information3 month Follow uprefill3 month Follow uprefillRefill3 month Follow upRefillsmessagethyroid labsrefillreferralNo InformationrefillMed Check UpRefillCOVID Positive- [phone] Care Teams (unrecognized sec tion and content) [...] September 28, 2023 End: September 28, 2023 Team Status: Inactive Member Role Status Dates Ngoc Martinez MD Primary Care Provider Active Start: October 13, 2023 End: October 13, 2023 Katie Valadez Attending Provider Active Start: Ap 2023 End: October 13, 2023 Team Status: Inactive Member Role Status Dates Ngoc Martinez MD Primary Care Provide r, Attending Provider Active Start: October 26, 2023 End: October 26, 2023 Goals (unrecognized section and content) Goals [...] BE BASED ON THE PRIMARY CLINICAL RECORDS. [facility] [address] [facility]. provides no warranty or guarantee of the accuracy or completeness of information in this document.
--- NOTE | 2023-10-27 08:15 | XR_ITS ---
The [address] [address] Patient Name: LAM TORRES MRN: [id number] date: 1980 Sex: F Assigned Patient Location: [facility] Current Patient Location: [facility] Accession/Order Number: [id number] Exam Date: 10/27/2023 08:18 Report Date: 10/27/2023 09:33 At the request of: ROYAL MARTINEZ Procedure: XR lumbar spine 2-3V EXAMINATION: XR lumbar spine 2-3V HISTORY: Acute Low Back Pain M54.50 COMPARISON: No relevant comparison available. FINDINGS: BONES: Normal alignment with no acute fracture or spondylolisthesis. Corticated bone fragment along the superior anterior margin of the L3 vertebral body, chronic injury. Mild spondylosis. Moderate facet osteoarthropathy. Mild dextrocurvature centered at L3 DISC SPACES: Mild multilevel disc space narrowing PARASPINOUS: Negative. No paraspinous abnormality is seen. OTHER: Negative. XR/XR lumbar spine 2-3V IMPRESSION: Mild degenerative changes Electronically authenticated by: OBED LOUISE Date: 10/27/2023 09:33
== END 2023-10-27 08:08 | disposition home or self-care (01) ==
LOC: RAD 08:11
PROVIDERS: PCP Family Medicine; Visit Provider Family Medicine
DX: M54.50 Low back pain, unspecified (principal); M51.36 Other intervertebral disc degeneration, lumbar region
CPT/HCPCS: 72100

== ENCOUNTER 2023-11-02 20:26 | Outpatient (REF) | payer MEDICARE, MEDICAID, SELFPAY ==
--- OUTSIDE RECORDS SUMMARY | 2023-11-02 20:40 | XMS_ITS | CCD ---
Author Organization [facility] Care Team Providers Care Disease Case Manager Name Role Phone JOSÉ SOSA Referring Unavailable NGOC MARTINEZ Primary Care Unavailable JOSÉ SOSA Referring Unavailable NGOC MARTINEZ Primary Care Unavailable Ngoc Martinez Unavailable MARIO CERVANTES Admitting Unavailable MICHELLE, DR NGOC Lyle Primary Care Unavailable CHARLOTTE, DR EVERARDO Mart Consulting Unavailable RASHIDA ., MARIO Attending Unavailable RASHIDA ., MARIO Consulting Unavailable LUISA ., DR WILSON Attending Unavailable LUISA ., DR WILSON Consulting Unavailable LUIAS ., DR WILSON Admitting Unavailable MICHELLE, DR NGOC Lyle Primary Care Unavailable NGOC MARTINEZ Referring Unavailable RONNY MARTINEZ Attending Unavailable KATIE VALADEZ Referring Unavailable KATIE VALADEZ Attending Unavailable KATIE VALADEZ Attending Unavailable MD Ngoc Martinez Primary Care Provider [phone] Katie Valadez Attending Provider Ngoc Martinez Primary Care Unavailable Katie Valadez Attending Unavailable Katie Valadez Admitting Unavailable Allergies Allergy Classification Reported Allergen(s) Allergy Type Date of Onset Reaction(s) Facility (20 sources) Acetaminophen / butalbital / Caffeine Drug Allergy Unknown Owned it Other (20 sources) cyclobenzaprine; Translations: [Flexeril] Drug Allergy 12-26-19 13 Unknown [facility] Repository (20 sources) Sertraline Drug Allergy 09-28-19 24 Unknown, [facility] (20 sources) SUMAtriptan Drug Allergy 09-28-19 24 Unknown, [facility] (20 sources) topiramate Drug Allergy 09-28-19 24 Unknown, [facility] (20 sources) varenicline Drug Allergy 09-28-19 24 Unknown, [facility] (1 source) Acetaminophen / butalbital / Caffeine Drug Allergy 12-26-19 13 [facility] Repository (1 source) diphenhydrAMINE Drug Allergy 12-26-19 13 [facility] (1 source) Iodine (And Iodine Containting Drugs) Drug allergy (disorder) [facility] Rep[facility] (1 source) Plasmin Drug Allergy 12-26-19 13 [facility] (1 source) Progesterone Drug Allergy 07-14-19 15 [facility] Rep[facility] (1 source) Sertraline Drug Allergy 12-26-19 13 [facility] (1 source) topiramate Drug Allergy 12-26-19 13 [facility] Rep[facility] (1 source) traMADol Drug Allergy 06-15-20 16 [facility] (1 source) varenicline Drug Allergy [facility] Rep[facility] (13 sources) Acetaminophen / butalbital / Caffeine / Codeine Drug Allergy Unknown Owned it Other (1 source) Contrast media Propensity to adverse reactions 09-11-19 17 Unknown Owned it Other (13 sources) Iodinated contrast media (substance) Drug allergy Unknown Owned it Other (1 source) Allergies Reconciled Propensity to adverse reactions 03-31-20 21 Unknown Owned it Other (1 source) patient allergy list reviewed by nurse or physicia Propensity to adverse reactions 02-17-20 19 Comment:Done Owned it Other (13 sources) MRI DYE Propensity to adverse reactions 10-20-19 17 Unknown Owned it Other (13 sources) Chantix *PSYCHOTHERAPEUTIC AND NEUROLOGICAL AGENTS Propensity to adverse reactions Unknown Owned it Other (13 sources) Contrast Allergy PreMed Pack *CORTICOSTEROIDS* Propensity to adverse reactions Comment:MRI DYE Owned it Other (13 sources) Flexeril *MUSCULOSKELETAL THERAPY AGENTS* Propensity to adverse reactions Unknown Owned it Other (3 sources) Acetaminophen Drug Allergy 09-28-19 24 [facility] (3 sources) butalbital Drug Allergy 09-28-19 24 [facility] (3 sources) Caffeine Drug Allergy 09-28-19 24 [facility] (3 sources) cyclobenzaprine Drug Allergy 09-28-19 24 [facility] (3 sources) Iodinated Contrast Media Allergy to substance 09-28-19 24 [facility] (3 sources) Chantix *PSYCHOTHERAPEUTIC AND Allergy to substance 09-28-19 24 [facility] (3 sources) Contrast Allergy PreMed Pack * Allergy to substance 07-05-19 Comment:MRI [facility] (3 sources) Fioricet/Codeine Allergy to substance 09-28-19 [facility] Medications Current Medications Medication Drug Class(es) Dates [...] as needed Orally every 6 hrs Not-Taking [id number] 200 actuat albuterol 0.09 mg/actuat metered dose [...] sources) High risk drug monitoring status; Translations: [group home (current) use of opiate analgesic] Episodic Other aftercare (1 source) Long-term current use of inhaled steroid; Translations: [group home (current) use of inhaled steroids] Episodic Other [...] 06-16-2016 Episodic Other aftercare (1 source) Other detention (current) drug therapy; Translations: [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 DR: SPEC TYPE: Surgical DEPT: S ENTERED BY: [id number] RECV BY: [id number] ORDERED: HE/2, Gross/Micro L4 ORDERED: HE/2, Gross/Micro [...] in A1. Clinical history: Irregular menstrual cycle [facility] Codes 26134 Specimen: [id number] Received: 10/14/23 Status: JULIAN Amaya Num: [id number] Spec Type: Surgical Subm Dr: Katie Valadez Tissues: A Endometrium - Biopsy (ENDOMETRIAL BX) Procedures: WILLIAM/Amy, Gross/Micro L4 Patient: Lam Moore [id number] (Continued) Signed (signature on file) Douglas Deleon MD 10/18/232101 Normal [facility] Basophils Auto (Bld) [#/Vol] on 09-28-2023 Basophils (Bld) [#/Vol] 0.1 10 3/uL 0.0-0.1 [facility] Basophils/100 WBC Auto (Bld) on 09-28-2023 Basophils/100 WBC (Bld) 0.8 % 0.2-2.0 [facility] Eosinophils/100 WBC Auto (Bl d)on 09-28-2023 Eosinophils/100 WBC (Bld) 3.4 % 0.9-7.0 [facility] Erythrocyte distribution wid th Auto (RBC) [Ratio]on 09-28-2023 Erythrocyte distribution width (RBC) [Ratio] 13.1 % 11.0-15.0 [facility] Glucose mean value [Mass/vol ume] in Blood Estimated from glycated hemoglobinon 09-28-2023 Average glucose Estimated from glycated hemoglobin (Bld) [Mass/Vol] 91 mg/dL [facility] Hematocrit Auto (Bld) [Volum e fraction]on 09-28-2023 Hematocrit (Bld) [Volume fraction] 41.1 % 36.0-48.0 [facility] Hemoglobin [Mass/volume] in Bloodon 09-28-2023 Hemoglobin (Bld) [Mass/Vol] 13.3 g/dL 12.0-16.0 [facility] Laboratory - Chemistry and C hemistry - challengeon 09-28-2023 Free T4 [Mass/Vol] 0.93 ng/dL 0.76-1.46 [facility] TSH Qn 1.327 m[IU]/L 0.358-3.74 0 [facility] Laboratory - Hematology and Cell countson 09-28-2023 HbA1c (Bld) [Mass fraction] 4.8 % 4.5-6.2 [facility] Comment on above: ADA RECOMMENDED LIMI T 4.0 - 6.0ADA THERAPEUTIC TARGET < 7.0ACTION SUGGESTED> 7.0 Immature granulocytes/100 WBC (Bld) 0.1 % 0.0-0.5 [facility] Leukocytes [#/volume] correc gem for nucleated erythrocytes in Blood by Automated counon 09-28-2023 WBC corrected for nucl RBC Auto (Bld) [#/Vol] 7.1 10 3/uL 4.0-11.0 [facility] Lymphocytes Auto (Bld) [#/Vo l]on 09-28-2023 Lymphocytes (Bld) [#/Vol] 2.8 10 3/uL 1.2-3.8 [facility] Lymphocytes/100 WBC Auto (Bl d)on 09-28-2023 Lymphocytes/100 WBC (Bld) 39.0 % 20.5-60.0 [facility] MCH Auto (RBC) [Entitic mass ]on 09-28-2023 MCH (RBC) [Entitic mass] 30.6 pg 26.7-34.0 [facility] MCHC Auto (RBC) [Mass/Vol]on 09-28-2023 MCHC (RBC) [Mass/Vol] 32.4 g/dL 29.9-35.2 [facility] MCV Auto (RBC) [Entitic vol] on 09-28-2023 MCV (RBC) [Entitic vol] 94.5 fL 81.0-99.0 [facility] Monocytes Auto (Bld) [#/Vol] on 09-28-2023 Monocytes (Bld) [#/Vol] 0.5 10 3/uL 0.3-0.8 [facility] Monocytes/100 WBC Auto (Bld) on 09-28-2023 Monocytes/100 WBC (Bld) 7.3 % 1.7-12.0 [facility] Neutrophils Auto (Bld) [#/Vo l]on 09-28-2023 Neutrophils (Bld) [#/Vol] 3.5 10 3/uL 1.4-6.5 [facility] Neutrophils/100 WBC Auto (Bl d)on 09-28-2023 Neutrophils/100 WBC (Bld) 49.4 % 43.0-75.0 [facility] No Panel Informationon 09-27 Dehydroepiandrosterone (DHEA) 330 ng/dL 31-701 [facility] Comment on above: This test was develo ped and its performance characteristicsdetermined by [employer]. It has not been cleared orapproved by the Food and Drug Administration.Performed at: [address] [id number] Director: Ragini Enriquez MD, Phone: [phone] Dehydroepiandrosterone Sulfate 98.1 ug/dL 57.3-279.2 [facility] Eosinophils # (Auto) 0.2 10 3/uL 0.0-0.7 [facility] Follicle Stimulating Hormone 32.8 mIU/mL . [facility] Comment on above: Adult Female Range F ollicular phase 3.5 - 12.5 Ovulation phase 4.7 - 21.5 Luteal phase 1.7 - 7.7 Postmenopausal 25.8 - 134.8Performed at: [address] [id number] Director: Julius Meza PhD, Phone: [phone] Human Chorionic Gonadotropin, Quant <1 mIU/mL [facility] Comment on above: 5-50 0.2-1 MJIC61-48 0 1-2 JRPWY429-3,000 2-3 IJUKJ314-04,000 3-4 WEEKS1,000-50,000 4-5 WEEKS10,000-100,000 5-6 WEEKS15,000-200,000 6-8 WEEKS10,000-100,000 2-3 MONTHS Immature Granulocyte # (Auto) 0.01 10 3/uL 0.00-0.03 [facility] Platelet mean volume Auto (B ld) [Entitic vol]on 09-28-2023 Platelet mean volume (Bld) [Entitic vol] 10.0 fL 9.5-13.5 [facility] Platelets Auto (Bld) [#/Vol] on 09-28-2023 Platelets (Bld) [#/Vol] 286 10 3/uL 150-450 [facility] RBC Auto (Bld) [#/Vol]on RBC (Bld) [#/Vol] 4.35 10 6/uL 4.20-5.40 [facility] Serum or plasma lutropin geoff surement (units/volume)on 09-28-2023 Lutropin Qn 19.0 m[IU]/mL . [facility] Comment on above: Adult Female Range [...] VERY IMPORTANT TO YOUR HEALTH. THE CURRENT STATELESS COLLEGE OF RADIOLOGY AND NATIONAL COMPREHENSIVE CANCER [...] to 66on 11-04-2022 . . Normal [facility] Comment on above: Result Comment: Perf ormed at: WB Performed By: #### [id number] #### [facility] Laboratory [address] [address] [address] Kleber Deleon Age Gdln ACOG Testing 30-65 Normal [facility] Comment on above: Performed By: #### [id number] #### [facility] [address] [place] [address] Dr. Kleber Deleon DIAGNOSIS: Comment Normal [facility] Comment on above: Result Comment: NEGA TIVE FOR INTRAEPITHELIAL LESION OR MALIGNANCY. Performed at: WB Performed By: #### [id number] #### [facility] [address] [place] [address] Dr. Kleber Deleon HPV Aptima Negative Normal Negative [facility] Comment on above: Result Comment: This nucleic acid amplification test detects fourteen high-risk HPV types (16,18,31,33,35,39,45,51,52,56,58,59,66,68) without differentiation. Performed at: =G Performed By: #### [id number] #### [facility] [address] [place] [address] Dr. Kleber Deleon HPV Genotype Reflex Comment Normal [facility] Comment on above: Result Comment: Crit eria not met, HPV Genotype not performed. Performed at: WB Performed By: #### [id number] #### [facility] [address] [place] [address] Dr. Kleber Deleon Methodology: Comment Normal [facility] Comment on above: Result Comment: This liquid based ThinPrep(R) pap test was screened with the use of an image guided system. Performed at: WB Performed By: #### [id number] #### [facility] [address] [place] [address] Dr. Kleber Deleon Note: Comment Normal [facility] Comment on above: Result Comment: The Pap smear is a screening test designed to aid in the detection of premalignant and malignant conditions of the uterine cervix. It is not a diagnostic procedure and should not be used as the sole means of detecting cervical cancer. Both false-positive and false-negative reports do occur. . Performed at: WB Performed By: #### [id number] #### [facility] [address] [place] [address] Dr. Kleber Deleon Performed by: Comment Normal [facility] Comment on above: Result Comment: Alyssa Henderson, Epitaxial Reactor Operator (ASCP) Performed at: WB Performed By: #### [id number] #### [facility] [address] [place], [place] [address] Dr. Kleber Deleon Specimen adequacy: Comment Normal [facility] Comment on above: Result Comment: Sati sfactory for evaluation. Endocervical and/or squamous metaplastic cells (endocervical component) are present. Performed at: WB Performed By: #### [id number] #### [facility] [address] [place], [place] [address] Dr. Kleber Deleon XR FACIAL MIN 3 VIEWSon 03-29 XR FACIAL MIN 3 VIEWS EXAM: XR FACIAL CT N 3 VIEWS HISTORY: Falls ; fell downstairs, facial pain COMPARISON: None. TECHNIQUE: FINDINGS: No visible fracture of the facial bones. Orbital rims are intact. No fluid levels within the paranasal sinuses. IMPRESSION: 1. No acute bone abnormality. Electronically authenticated by: EVERARDO PORTER Date: 2022-04-20 07:52 Normal [facility] Cult,Genitalon 10-16-2018 Cult,Genital Specimen Description .VAGINA Special Requests NOT REPORTED Culture NORMAL URO-GENITAL DAVI STREPTOCOCCI, BETA HEMOLYTIC GROUP B ISOLATED. NEGATIVE FOR NEISSERIA GONORRHOEAE Report Status FINAL 10/16/[address] [facility] Comment on above: Performed By: #### G EC #### [address] [id number] Battery Plate Remover: Bob Whitehead MD [facility] [address] [place] [address] [place] [address] Battery Plate Remover: Jorge Luis Nina MD Cytologyon 01-27-2018 Cytology (NOTE) [id number] [facility] ANATOMIC PATHOLOGY [address], [place] [address] GYNECOLOGIC CYTOLOGY REPORT Patient Name: LAM MOORE MR#: [id number] Specimen #[id number] Source: 1: Cervical material, (ThinPrep vial, Imaging-assisted review) Clinical History Z01.419 Routine director marketing exam without abnormal findings High Risk HPV DNA testing is requested if the diagnosis is ASC-US History of: Cervical lesion destruction LMP: 12/30/17 INTERPRETATION Cervical material, (ThinPrep vial, Imaging-assisted review): Specimen Adequacy: Satisfactory for evaluation. - Endocervical/transformatio n zone component present. Descriptive Diagnosis: Negative for intraepithelial lesion or malignancy. Epitaxial Reactor Operator: JEOVANY Gerber(ASCP) Electronically Signed Out mathew/02/16/2018 [facility] Comment on above: Performed By: #### P PPVP #### [address] [place], [place] [id number] Vital Signs Date Time Vital Sign Value Performing Clinician Facility 10-26-2023 11:04-0400 Body height 175.26 cm MD Ngoc Martinez Work Phone: [facility] 10-26-2023 11:04-0400 Body mass index (BMI) [Ratio] 25.8 kg/m2 MD Ngoc Martinez Work Phone: [facility] 10-26-2023 11:04-0400 Body weight 79.43 kg MD Ngoc Martinez Work Phone: [facility] 10-26-2023 11:04-0400 Diastolic blood pressure 86 mm[Hg] MD Ngoc Martinez Work Phone: [facility] 10-26-2023 11:04-0400 Heart rate 73 /min MD Ngoc Martinez Work Phone: [facility] 10-26-2023 11:04-0400 Systolic blood pressure 121 mm[Hg] MD Ngoc Martinez Work Phone: [facility] 09-28-2023 13:33-0400 Body height 175.26 cm [facility] 09-28-2023 13:33-0400 Body mass index (BMI) [Ratio] 24.8 kg/m2 [facility] 09-28-2023 13:33-0400 Body weight 76.43 kg [facility] 09-28-2023 13:33-0400 Diastolic blood pressure 91 mm[Hg] [facility] 09-28-2023 13:33-0400 Heart rate 64 /min [facility] 09-28-2023 13:33-0400 Systolic blood pressure 128 mm[Hg] [facility] 06-11-2023 10:15-0500 Body height 175.26 cm Ngoc Martinez Other [facility] Other 06-11-2023 10:15-0500 Body mass index (BMI) [Ratio] 25.99 kg/m2 Ngoc Martinez Other [facility] Other 06-11-2023 10:15-0500 Body weight 79.83 kg Ngoc Martinez Other [facility] Other 06-11-2023 10:15-0500 Diastolic blood pressure 76 mm[Hg] Ngoc Martinez Other [facility] Other 06-11-2023 10:15-0500 Systolic blood pressure 125 mm[Hg] Ngoc Martinez Other [facility] Other 03-11-2023 11:15-0400 Body height 175.26 cm Ngoc Martinez Other [facility] Other 03-11-2023 11:15-0400 Body mass index (BMI) [Ratio] 26.73 kg/m2 Ngoc Martinez Other [facility] Other 03-11-2023 11:15-0400 Body weight 82.1 kg Ngoc Martinez Other [facility] Other 03-11-2023 11:15-0400 Diastolic blood pressure 74 mm[Hg] Ngco Martinez Other [facility] Other 03-11-2023 11:15-0400 Respiratory rate 20 /min Ngoc Mratinez Other [facility] Other 03-11-2023 11:15-0400 Systolic blood pressure 118 mm[Hg] Ngoc Martinez Other [facility] Other 12-02-2022 09:00-0400 Body height 175.26 cm Ngoc Martinez Other [facility] Other 12-02-2022 09:00-0400 Body mass index (BMI) [Ratio] 26.73 kg/m2 Ngoc Martinez Other [facility] Other 12-02-2022 09:00-0400 Body weight 82.1 kg Ngoc Martinez Other [facility] Other 12-02-2022 09:00-0400 Diastolic blood pressure 72 mm[Hg] Ngoc Martinez Other [facility] Other 12-02-2022 09:00-0400 Systolic blood pressure 112 mm[Hg] Ngoc Martinez Other [facility] Other 09-02-2022 08:45-0500 Body height 175.26 cm Ngoc Martinez Other [facility] Other 09-02-2022 08:45-0500 Body mass index (BMI) [Ratio] 27.61 kg/m2 Ngoc Martinez Other [facility] Other 09-02-2022 08:45-0500 Body weight 84.82 kg Ngoc Martinez Other [facility] Other 09-02-2022 08:45-0500 Diastolic blood pressure 84 mm[Hg] Ngoc Martinez Other [facility] Other 09-02-2022 08:45-0500 SaO2% (BldA) [Mass fraction] 99 % Ngoc Martinez Other [email or web address] [facility] Other 09-02-2022 08:45-0500 Systolic blood pressure 142 mm[Hg] Ngoc Martinez Other [facility] Other Encounters Encounter Date Encounter Type Care Provider Facility Start: 10-26-2023 End: 10-26-2023 ambulatory MD Ngoc Martinez Work Phone: [facility] Work Phone: Start: 10-26-2023 End: 10-26-2023 Patient encounter procedure MD Ngoc Martinez Work Phone: [facility] Work Phone: Start: 10-13-2023 End: 10-13-2023 ambulatory Ngoc Martinez Facility:[facility] Start: 10-13-2023 End: 10-13-2023 Departed Referred MD Ngoc Martinez Work Phone: [facility] Start: 10-13-2023 End: 10-13-2023 ambulatory KATIE LUISA Not Available Start: 09-28-2023 End: 09-28-2023 ambulatory [facility] Work Phone: Start: 09-28-2023 End: 09-28-2023 Patient encounter procedure [facility] Work Phone: Start: 09-21-2023 End: 09-21-2023 ambulatory KATIE LUISA Not Available Start: 08-26-2023 Non-patient / Non-visit [facility] Work Phone: Start: 08-26-2023 Non-patient / Non-visit [facility] Work Phone: Start: 08-02-2023 End: 08-03-2023 ambulatory KATIE LUISA Not Available Start: 07-29-2023 End: 07-29-2023 ambulatory Ngoc Martinez Other [facility] Other Start: 07-29-2023 Telephone encounter Ngoc Martinez [facility] Start: 07-26-2023 End: 07-26-2023 ambulatory NGOC Valdo MICHELLE Facility:[facility] Start: 07-05-2023 Patient encounter procedure [facility]- Start: 07-02-2023 End: 07-02-2023 ambulatory Ngoc Martinez Other [facility] Other Start: 07-02-2023 Office outpatient vi sit 15 minutes Ngoc Martinez [facility] Start: 07-01-2023 End: 07-01-2023 ambulatory Ngoc Michelle Other [facility] Other Start: 07-01-2023 Telephone encounter Ngoc Martinez [facility] Start: 06-11-2023 End: 06-11-2023 ambulatory Ngoc Michelle Other [facility] Other Start: 06-11-2023 Office outpatient vi sit 15 minutes Ngoc Martinez [facility] Start: 06-03-2023 End: 06-03-2023 ambulatory Ngoc Michelle Other [facility] Other Start: 06-03-2023 Telephone encounter Ngoc Martinez [facility] Start: 06-02-2023 End: 06-02-2023 ambulatory Ngoc Michelle Other [facility] Other Start: 06-02-2023 Telephone encounter Ngoc Martinez [facility] Start: 05-27-2023 End: 05-27-2023 ambulatory Ngoc Martinez Other [facility] Other Start: 05-27-2023 Telephone encounter Ngoc Martinez [facility] Start: 05-06-2023 End: 05-06-2023 ambulatory Ngoc Michelle Other [facility] Other Start: 05-06-2023 Telephone encounter Ngoc Martinez [facility] Start: 04-14-2023 End: 04-14-2023 ambulatory Ngoc Martinez Other [facility] Other Start: 04-14-2023 Telephone encounter Ngoc Martinez [facility] Start: 04-08-2023 End: 04-08-2023 ambulatory Ngoc Martinez Other [facility] Other Start: 04-08-2023 Telephone encounter Ngoc Martinez [facility] Start: 04-01-2023 End: 04-01-2023 ambulatory Ngoc Martinez Other [facility] Other Start: 04-01-2023 Telephone encounter Ngoc Martinez [facility] Start: 03-11-2023 End: 03-11-2023 ambulatory Ngoc Martinez Other [facility] Other Start: 03-11-2023 Office outpatient vi sit 15 minutes Ngoc Martinez [facility] Start: 02-11-2023 End: 02-11-2023 ambulatory Ngoc Martinez Other [facility] Other Start: 02-11-2023 Telephone encounter Ngoc Martinez [facility] Start: 01-14-2023 End: 01-14-2023 ambulatory Ngoc Martinez Other [facility] Other Start: 01-14-2023 Telephone encounter Ngoc Martinez [facility] Start: 12-17-2022 End: 12-17-2022 ambulatory Ngoc Martinez Other [facility] Other Start: 12-17-2022 Telephone encounter Ngoc Martinez [facility] Start: 12-02-2022 End: 12-02-2022 ambulatory Ngoc Martinez Other [facility] Other Start: 12-02-2022 Office outpatient vi sit 15 minutes Ngoc Martinez [facility] Start: 11-20-2022 End: 11-20-2022 ambulatory Ngoc Martinez Other [facility] Other Start: 11-20-2022 Telephone encounter Ngoc Martinez [facility] Start: 10-27-2022 End: 10-27-[address] KATIE VALADEZ . Facility:[facility] Start: 10-22-2022 End: 10-22-2022 ambulatory Ngoc Martinez Other [facility] Other Start: 10-22-2022 Telephone encounter Ngoc Martinez [facility] Start: 09-24-2022 End: 09-24-2022 ambulatory Ngoc Martinez Other [facility] Other Start: 09-24-2022 Telephone encounter Ngoc Martinez [facility] Start: 09-02-2022 End: 09-02-2022 ambulatory Ngoc Martinez Other [facility] Other Start: 09-02-2022 Office outpatient vi sit 15 minutes Ngoc Martinez [facility] Start: 08-28-2022 End: 08-28-2022 ambulatory Ngoc Martinez Other [employer] [facility] Other Start: 08-28-2022 Telephone encounter Ngoc Martinez [facility] Start: 04-30-2022 Gynecological examination normal Ngoc Martinez Other [employer] [facility] Other Start: 04-20-2022 End: 04-20-2022 ambulatory MARIO FIELD . Facility:[facility] Start: 11-10-2021 End: 11-10-2021 Pre-procedure evaluation check Ngoc Martinez Other [employer] [facility] Other Start: 10-13-2018 End: 10-14-2018 [facility]: 01-27-2018 Encounter for gynecological examination (general) (routine) without abnormal findings [facility] Start: 01-27-2018 End: 01-28-2018 Patient encounter procedure JOSÉ King [facility] Procedures Date Procedure Procedure Detail Performing Clinician Start: 10-13-2018 Cul bact xcpt urine blood/stool aerobic isol JOSÉ SOSA Start: 01-27-2018 Cytopathology proced ure, preparation of smear, genital source JOSÉ SOSA Start: 11-30-2016 Pre-surgery evaluation Nogc Martinez Other End: 09-12-2021 Depression screening Ngoc Martinez Other End: 12-09-2020 Diabetes mellitus screening Ngoc Martinez Other Plan of Treatment Date Care Activity Detail Author XR Lumbar spine 2 or 3 Views [facility] Payers Date Payer Category Payer Medicare [id number] 2014 Medicare [id number] 1980 Unknown [id number] 2.16.8 [id number] 1980 Unknown [id number] 2.16.8 [id number] 1980 Unknown [id number] 2.16.84 [id number] 1980 Unknown [id number] 2.16.84 [id number] 1980 Unknown [id number] 2.16.84 [id number] 1980 Unknown [id number] 2.16.84 [id number] 1980 Unknown [id number] 2.16.84 [id number] 1958 Medicaid [id number] 2. [id number] 1958 Medicare [id number] 2. [id number] Social History Date Type Detail Facility Sex Assigned At [place] Other Start: 07-05-2023 Tobacco smoking stat us NHIS Smoker (finding) [facility] Start: 1980 Sex Assigned At Female F [facility] Clinical Notes 04-20-2022 to 07-29-2023 Note Date & Type Note Facility 07-29-2023 Evaluation note Encounter Date Diagnosis Assessment Notes Jul, Left shoulder pain (ICD-10 - M25.512) [facility] [employer] Other 01-29-2024 NoteHNO ID: [id number] Author: RONNY MARTINEZ MD Service: ? Author Type: Physician Type: Progress Notes Filed: 07/26/2023 14:37 Note Text: VIRTUAL VISIT PROGRESS NOTE This is a virtual visit using [employer] Video Visit. It required patient-provider interaction for the medical decision making as documented below. I have communicated my name and active licensure. The patient's identity and physical location were verified at the time of this visit. Either the patient or their legal union contract representative has been informed of the risks [...] monitor thyroid function/TSH. RTC TBD. Ronny Martinez, [facility]01-05-2024 Evaluation note* Encounter Date Diagnosis Assessment [...] than 5 days since start of symptoms [employer] [facility] Other 01-04-2024 Evaluation note* Encounter Date Diagnosis Assessment Notes Treatment Notes Treatment Clinical Notes Jun, Left shoulder pain (ICD-10 - M25.512) [facility] [facility] Other 12-15-2023 Evaluation note* Encounter Date Diagnosis Assessment Notes Treatment Notes Treatment Clinical Notes May, Acquired hypothyroidism (ICD-10 - E03.9) Pt advised referral was sent on 05/27. She is welcome to make her own appt a [facility] as well. Will check labs in meantime. May, Fatigue, unspecified type (ICD-10 - R53.83) Pt agrees to labs. May, Left shoulder pain (ICD-10 - M25.512) Lam agrees to decrease dose to 5/325 w next fill in June. Reviewed [facility]. [employer] [facility] Other 12-07-2023 Evaluation note* Encounter Date Diagnosis Assessment Notes Treatment Notes Treatment Clinical Notes May, Left shoulder pain (ICD-10 - M25.512) [facility] [facility] Other 11-30-2023 Evaluation note* Encounter Date Diagnosis Assessment Notes Treatment Notes Treatment Clinical Notes Apr, Acquired hypothyroidism (ICD-10 - E03.9) [facility] Other 11-09-2023 Evaluation note* Encounter Date Diagnosis Assessment Notes Treatment Notes Treatment Clinical Notes Apr, Left shoulder pain (ICD-10 - M25.512) [facility] [facility] Other 10-12-2023 Evaluation note* Encounter Date Diagnosis Assessment Notes Treatment Notes Treatment Clinical Notes Mar, Left shoulder pain (ICD-10 - M25.512) Mar, Acquired hypothyroidism (ICD-10 - E03.9) [facility] Other 10-05-2023 Evaluation note* Encounter Date Diagnosis Assessment Notes Treatment Notes Treatment Clinical Notes Mar, Left shoulder pain (ICD-10 - M25.512) [facility] [facility] Other 09-14-2023 Evaluation note* Encounter Date Diagnosis [...] of breath. . Increase fluids and rest. [id number] antipyretics as needed. Warning signs and symptoms reviewed with patient today. Patient to go immediately to the ER should she experience any of these. Patient to notify office should her symptoms persist and not improve. Patient verbalizes understanding and agrees to treatment plan. Feb, Left shoulder pain (ICD-10 - M25.512) Chronic problem, take med as prescribed. Reviewed OAR[facility] report. Followup in 3 months. [facility] Other 08-17-2023 Evaluation note* Encounter Date Diagnosis Assessment Notes Treatment Notes Treatment Clinical Notes Jan, Acute thoracic back pain, unspecified back pain laterality (ICD-10 - M54.6) [facility] Other 07-20-2023 Evaluation note* Encounter Date Diagnosis Assessment Notes Treatment Notes Treatment Clinical Notes Dec, Acute thoracic back pain, unspecified back pain laterality (ICD-10 - M54.6) [facility] [facility] Other 06-22-2023 Evaluation note* Encounter Date Diagnosis Assessment Notes Treatment Notes Treatment Clinical Notes Nov, Acute thoracic back pain, unspecified back pain laterality (ICD-10 - M54.6) [facility] [facility] Other 06-07-2023 Evaluation note* Encounter Date Diagnosis Assessment Notes Treatment Notes Treatment Clinical Notes Nov, Moderate persistent asthma without complication (ICD-10 - J45.40) Nov, Vomiting with nausea, not intractable (ICD-10 - R11.2) Nov, Neck pain (ICD-10 - M54.2) O[facility] report processed and reviewed and shows no violations. Pt understands to use only as needed and consider dose reduction at next OV. [employer] [facility] Other 06-07-2023 Evaluation note* Encounter Date Diagnosis [...] and consider dose reduction at next OV. [facility] [facility] Other 04-27-2023 Evaluation note* Encounter Date Diagnosis Assessment Notes Treatment Notes Treatment Clinical Notes Sep, Acute thoracic back pain, unspecified back pain laterality (ICD-10 - M54.6) [facility] [facility] Other 03-08-2023 Evaluation note* Encounter Date Diagnosis [...] Will continue to decrease with next rx. [facility] Other 03-08-2023 Evaluation note* Encounter Date Diagnosis [...] as listed above for the breast area. [employer] Other [id number] NotePROCEDURE: XR FOREARM RT 2V HISTORY: Falls ; fell down stairs, right forearm pain COMPARISON: None. FINDINGS: BONES:Transverse fracture through mid ulnar diaphysis without displacement. Unremarkable radius. SOFT TISSUES:No visible soft tissue swelling. EFFUSION:None visible. OTHER: Negative. IMPRESSION: 1. Acute, nondisplaced mid ulnar diaphyseal fracture. Electronically authenticated by: EVERARDO PORTER Date: 2022-04-20 07:54[facility] note[facility] InformationN[facility] [employer] Other Evaluation note* Diagnosis Onset Date Resolution Status Thoracic back pain acute [facility] Work Phone: Evaluation note* Diagnosis Onset Date Resolution Status Thoracic back pain acute Acute lumbar back pain acute Thoracic back pain [facility] Work Phone: History general Narrative - Reported* Type Description Date Medical History Asthma Medical History Depression Medical History GERD Medical History Fibromyalgia Medical History Anxiety Surgical History Left wrist fracture repair 2013 Surgical History Gall Bladder 2001 Surgical History Skin Graft Hospitalization History See Hospitalization History 1 Jun 2014 [employer] [facility] Other Summary Purpose Family History Relationship Condition [...] 1 Acquired hypothyroid ism (E03.9) Referral Organization [facility] fariha Referring Provider First Name Ngoc Referring Provider Last Name Michelle Referring Provider Specialty Family Medi cine Referred Organization [facility] Referred Address [address] [place], [place],[address] Referred Provider Specialty Endocrinolog y Referral Priority [...] and content) DATE CREATED AUTHOR 10/16/2018 [facility] DATE CREATED AUTHOR AUTHOR'S ORGANIZ ATION 11/05/2022 [facility] DATE CREATED AUTHOR AUTHOR'S ORGANIZ ATION 07/27/2023 [facility] DATE CREATED AUTHOR AUTHOR'S ORGANIZ ATION 10/14/2023 [facility] EPIC DATE CREATED AUTHOR AUTHOR'S ORGANIZ ATION 10/19/2023 [facility] REASON FOR VISIT (unrecogniz ed section and content) Prescriptions3 month Follow uprefill3 month Follow uprefillNo Information3 month Follow uprefill3 month Follow uprefillRefill3 month Follow upRefillsmessagethyroid labsrefillreferralNo InformationrefillMed Check UpRefillCOVID Positive- [phone] Care Teams (unrecognized sec tion and content) [...] BE BASED ON THE PRIMARY CLINICAL RECORDS. [facility]. provides no warranty or guarantee of the accuracy or completeness of information in this document.
== END 2023-11-02 20:27 | disposition home or self-care (01) ==
LOC: LAB 20:26
PROVIDERS: PCP Family Medicine; Visit Provider Obstetrics & Gynecology
DX: Z01.419 Encounter for gynecological examination (general) (routine) without abnormal findings (principal)
CPT/HCPCS: 87624; G0145

== ENCOUNTER 2023-11-09 09:19 | Outpatient (OUT) | payer MEDICARE, MEDICAID, SELFPAY ==
--- NOTE | 2023-11-09 09:56 | ECG_ITS ---
[facility] Test Date: 2023-11-09 Pat Name: LAM TORRES Department: Room: - Gender: Female [employer]: : 1980 Requested By: CHRISTINA CARRILLO Order Number: [id number] Reading MD: KRISHNA MUNGUIA Measurements Intervals Schwertner Rate: 75 P: 51 NH: 128 QRS: 8 QRSD: 99 T: 25 QT: 365 QTc: 409 Interpretive Statements SINUS RHYTHM Compared to ECG 10/22/2021 11:21:13 No significant changes Electronically Signed On 11-09-2023 22:46:54 EDT by KRISHNA MUNGUIA
== END 2023-11-09 09:20 | disposition home or self-care (01) ==
LOC: PST 09:20
PROVIDERS: PCP Family Medicine; Visit Provider Obstetrics & Gynecology
DX: Z01.810 Encounter for preprocedural cardiovascular examination (principal); Z01.812 Encounter for preprocedural laboratory examination; N92.0 Excessive and frequent menstruation with regular cycle; N93.9 Abnormal uterine and vaginal bleeding, unspecified; R10.2 Pelvic and perineal pain
CPT/HCPCS: 80048; 85610; 85730; 93005

== ENCOUNTER 2023-11-12 06:18 | Day surgery (SDC) | payer MEDICARE, MEDICAID, SELFPAY ==
[2023-11-09 09:56] VITALS: BP 122/80; PULSE 101; TEMP 36.3; O2SAT 95; BMI 24.8
[2023-11-12] VITALS (14 sets, daily range): BP systolic 97–112; BP diastolic 63–81; PULSE 56–92; TEMP 36.1–36.2; O2SAT 94–100; BMI 24.8
--- OUTSIDE RECORDS SUMMARY | 2023-11-12 06:21 | XMS_ITS | CCD ---
Author Organization [facility] Care Team Providers Care Personalized Living Assistant Name Role Phone JOSÉ SOSA Referring Unavailable NGOC MARTINEZ Primary Care Unavailable JOSÉ SOSA Referring Unavailable NGOC MARTINEZ Primary Care Unavailable Ngoc Martinez Unavailable RASHIDA Saldana, MARIO Admitting Unavailable MICHELLE, DR NGOC Lyle Primary Care Unavailable CHARLOTTE, DR EVERARDO Mart Consulting Unavailable RASHIDA ., MARIO Attending Unavailable RASHIDA ., MARIO Consulting Unavailable LUISA ., DR WILSON Attending Unavailable LUISA ., DR WILSON Consulting Unavailable LUISA ., DR WILSON Admitting Unavailable MICHELLE, DR NGOC Lyle Primary Care Unavailable NGOC MARTINEZ Referring Unavailable RONNY MARTINEZ Attending Unavailable MD Ngoc Martinez Primary Care Provider [phone] Katie Valadez Attending Provider Ngoc Martinez Primary Care Unavailable Katie Valadez Attending Unavailable Katie Valadez Admitting Unavailable KATIE VALADEZ Referring Unavailable KATIE VALADEZ Attending Unavailable KATIE VALADEZ Attending Unavailable KATIE VALADEZ Attending Unavailable Allergies Allergy Classification Reported Allergen(s) Allergy Type Date of Onset Reaction(s) Facility (20 sources) Acetaminophen / butalbital / Caffeine Drug Allergy Unknown [facility] Other (20 sources) cyclobenzaprine; Translations: [Flexeril] Drug Allergy 12-26-[address] [facility] (20 sources) Sertraline Drug Allergy 09-28-19 24 Unknown, [facility] (20 sources) SUMAtriptan Drug Allergy 09-28-19 24 Unknown, [facility] (20 sources) topiramate Drug Allergy 09-28-19 24 Unknown, [facility] (20 sources) varenicline Drug Allergy 09-28-19 24 Unknown, [facility] (1 source) Acetaminophen / butalbital / Caffeine Drug Allergy 12-26-[address] [facility] (1 source) diphenhydrAMINE Drug Allergy 12-26-[address] [facility] (1 source) Iodine (And Iodine Containting Drugs) Drug allergy (disorder) [facility] (1 source) Plasmin Drug Allergy 12-26-[address] [facility] (1 source) Progesterone Drug Allergy 07-14-[address] [facility] (1 source) Sertraline Drug Allergy 12-26-[address] [facility] (1 source) topiramate Drug Allergy 12-26-[address] [facility] (1 source) traMADol Drug Allergy 06-15-[address] [facility] (1 source) varenicline Drug Allergy [facility] (13 sources) Acetaminophen / butalbital / Caffeine / Codeine Drug Allergy Unknown [facility] Other (1 source) Contrast media Propensity to adverse reactions 09-11-19 17 Unknown [facility] Other (13 sources) Iodinated contrast media (substance) Drug allergy Unknown [facility] Other (1 source) Allergies Reconciled Propensity to adverse reactions 03-31-20 21 Unknown [facility] Other (1 source) patient allergy list reviewed by nurse or physicia Propensity to adverse reactions 02-17-20 19 Comment:Done [facility] Other (13 sources) MRI DYE Propensity to adverse reactions 10-20-19 17 Unknown [facility] Other (13 sources) [facility] *PSYCHOTHERAPEUTIC AND NEUROLOGICAL AGENTS Propensity to adverse reactions Unknown [facility] Other (13 sources) Contrast Allergy PreMed Pack *CORTICOSTEROIDS* Propensity to adverse reactions Comment:MRI DYE [facility] Other (13 sources) Flexeril *MUSCULOSKELETAL THERAPY AGENTS* Propensity to adverse reactions Unknown [facility] Other (3 sources) Acetaminophen Drug Allergy 09-28-19 24 [facility] (3 sources) butalbital Drug Allergy 09-28-19 24 [facility] (3 sources) Caffeine Drug Allergy 09-28-19 24 [facility] (3 sources) cyclobenzaprine Drug Allergy 09-28-19 24 [facility] (3 sources) Iodinated Contrast Media Allergy to substance 09-28-19 24 [facility] (3 sources) [facility] *PSYCHOTHERAPEUTIC AND Allergy to substance 09-28-19 24 [facility] (3 sources) Contrast Allergy PreMed Pack * Allergy to substance 07-05-19 Comment:MRI DYE [place] (3 sources) Fioricet/Codeine Allergy to substance 09-28-19 [facility] Medications Current Medications Medication Drug Class(es) [...] as needed Orally every 6 hrs Not-Taking [id number] 200 actuat albuterol 0.09 mg/actuat metered dose [...] Orally at bedtime Active Pre-Ruthy (20 sources) Pre-Ruthy Active predniSONE 20 mg oral tablet (8 sources) Start: 03-11-2023 take 2 tablets by mouth every twenty-four hours predniSONE 20 MG 2 tablets Orally Once a day for 5 days Feb, Active pregabalin 150 mg oral capsule (20 sources) Start: 07-30-2023 Pregabalin 150 mg TAKE ONE CAPSULE BY MOUTH TWICE A DAY FOR 30 DAYS for Jul, Active Start: 04-05-2023 Pregabalin 150 mg TAKE ONE CAPSULE BY MOUTH TWICE A DAY FOR 30 DAYS for 30 Mar, Active Start: 07-01-2022 take 1 capsule by mo uth every twelve hours Lyrica 150 MG 1 capsule Orally Twice a day for 30 days October, Active Start: 07-01-2022 take 1 capsule by mo uth every twenty-four hours Lyrica 150 MG 1 [...] sources) High risk drug monitoring status; Translations: [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] Episodic Other aftercare (1 source) Long-term current use of inhaled steroid; Translations: [[facility] (current) use of inhaled steroids] Episodic Other [...] 06-16-2016 Episodic Other aftercare (1 source) 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; Translations: [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] Onset: 04-21-2022 Episodic Other [...] Test Name Value Interpretation Reference Range Facility [facility] 10-13-2023 L Specimen: [id number] Received: 10/14/23 Status: JULIAN Amaya Num: [id number] Spec Type: Surgical Subm Dr: Katie Valadez Tissues: A Endometrium - Biopsy (ENDOMETRIAL BX) Procedures: HE/2, Gross/Micro L4 Age/ Patient Sex Location Account Attending Physician Lam Moore 43/F [place] [id number] Katie Valadez SPEC NUM: [id number] RECD: 10/14/23 STATUS: JULIAN AMAYA NUM: [id number] WHIT: 10/13/23- SUBM : Katie Valadez ENTERED: 10/14/[address] [facility] [address]: SPEC TYPE: Surgical DEPT: S ENTERED BY: [id number] RECV BY: [id number] ORDERED: HE/2, Gross/Micro L4 ORDERED: HE/2, Gross/Micro [...] in A1. Clinical history: Irregular menstrual cycle TW CPT Codes 90856 Specimen: [id number] Received: 10/14/23 Status: JULIAN Amaya Num: [id number] Spec Type: Surgical Subm Dr: Katie Valadez Tissues: A Endometrium - Biopsy (ENDOMETRIAL BX) Procedures: WILLIAM/Amy, Jocy/Micro L4 Patient: Lam Moore [id number] (Continued) Signed (signature on file) Douglas Deleon MD 10/18/232101 Normal [facility] Basophils Auto (Bld) [#/Vol] on 09-28-2023 Basophils (Bld) [#/Vol] 0.1 10 3/uL 0.0-0.1 [place] Basophils/100 WBC Auto (Bld) on 09-28-2023 Basophils/100 WBC (Bld) 0.8 % 0.2-2.0 F [facility] Eosinophils/100 WBC Auto (Bl d)on 09-28-2023 Eosinophils/100 WBC (Bld) 3.4 % 0.9-7.0 [place] Erythrocyte distribution wid th Auto (RBC) [Ratio]on 09-28-2023 Erythrocyte distribution width (RBC) [Ratio] 13.1 % 11.0-15.0 [place] Glucose mean value [Mass/vol ume] in Blood Estimated from glycated hemoglobinon 09-28-2023 Average glucose Estimated from glycated hemoglobin (Bld) [Mass/Vol] 91 mg/dL [place] Hematocrit Auto (Bld) [Volum e fraction]on 09-28-2023 Hematocrit (Bld) [Volume fraction] 41.1 % 36.0-48.0 [place] Hemoglobin [Mass/volume] in Bloodon 09-28-2023 Hemoglobin (Bld) [Mass/Vol] 13.3 g/dL 12.0-16.0 [place] [facility] - Chemistry and C hemistry - challengeon 09-28-2023 Free T4 [Mass/Vol] 0.93 ng/dL 0.76-1.[address] [facility] TSH Qn 1.327 m[IU]/L 0.358-3.74 0 [place] [facility] - Hematology and Cell countson 09-28-2023 HbA1c (Bld) [Mass fraction] 4.8 % 4.5-6.2 [place] Comment on above: ADA RECOMMENDED LIMI T 4.0 - 6.0ADA THERAPEUTIC TARGET < 7.0ACTION SUGGESTED> 7.0 Immature granulocytes/100 WBC (Bld) 0.1 % 0.0-0.5 [place] Leukocytes [#/volume] correc gem for nucleated erythrocytes in Blood by Automated counon 09-28-2023 WBC corrected for nucl RBC Auto (Bld) [#/Vol] 7.1 10 3/uL 4.0-11.0 [place] Lymphocytes Auto (Bld) [#/Vo l]on 09-28-2023 Lymphocytes (Bld) [#/Vol] 2.8 10 3/uL 1.2-3.8 [place] Lymphocytes/100 WBC Auto (Bl d)on 09-28-2023 Lymphocytes/100 WBC (Bld) 39.0 % 20.5-60.0 [place] MCH Auto (RBC) [Entitic mass ]on 09-28-2023 MCH (RBC) [Entitic mass] 30.6 pg 26.7-34.0 [place] MCHC Auto (RBC) [Mass/Vol]on 09-28-2023 MCHC (RBC) [Mass/Vol] 32.4 g/dL 29.9-35.2 [facility] MCV Auto (RBC) [Entitic vol] on 09-28-2023 MCV (RBC) [Entitic vol] 94.5 fL 81.0-99.0 F [facility] Monocytes Auto (Bld) [#/Vol] on 09-28-2023 Monocytes (Bld) [#/Vol] 0.5 10 3/uL 0.3-0.8 [place] Monocytes/100 WBC Auto (Bld) on 09-28-2023 Monocytes/100 WBC (Bld) 7.3 % 1.7-12.0 F [facility] Neutrophils Auto (Bld) [#/Vo l]on 09-28-2023 Neutrophils (Bld) [#/Vol] 3.5 10 3/uL 1.4-6.5 [place] Neutrophils/100 WBC Auto (Bl d)on 09-28-2023 Neutrophils/100 WBC (Bld) 49.4 % 43.0-75.0 [place] No Panel Informationon 09-27 Dehydroepiandrosterone (DHEA) 330 ng/dL 31-701 [place] Comment on above: This test was mike mercer and its performance characteristicsdetermined by [employer]. It has not been cleared orapproved by the Food and Drug Administration.Performed at: [address] [id number] Director: Ragini Enriquez MD, Phone: [phone] Dehydroepiandrosterone Sulfate 98.1 ug/dL 57.3-279.2 [place] Eosinophils # (Auto) 0.2 10 3/uL 0.0-0.7 [facility] Follicle Stimulating Hormone 32.8 mIU/mL . [place] Comment on above: Adult Female Range F ollicular phase 3.5 - 12.5 Ovulation phase 4.7 - 21.5 Luteal phase 1.7 - 7.7 Postmenopausal 25.8 - 134.8Performed at: [address] [id number] Director: Julius Meza PhD, Phone: [phone] Human Chorionic Gonadotropin, Quant <1 mIU/mL [place] Comment on above: 5-50 0.2-1 UGNW89-92 0 1-2 GEZQZ939-4,000 2-3 FYDQS572-37,000 3-4 WEEKS1,000-50,000 4-5 WEEKS10,000-100,000 5-6 WEEKS15,000-200,000 6-8 WEEKS10,000-100,000 2-3 MONTHS Immature Granulocyte # (Auto) 0.01 10 3/uL 0.00-0.03 [place] Platelet mean volume Auto (B ld) [Entitic vol]on 09-28-2023 Platelet mean volume (Bld) [Entitic vol] 10.0 fL 9.5-13.5 [place] Platelets Auto (Bld) [#/Vol] on 09-28-2023 Platelets (Bld) [#/Vol] 286 10 3/uL 150-450 [place] RBC Auto (Bld) [#/Vol]on RBC (Bld) [#/Vol] 4.35 10 6/uL 4.20-5.40 [facility] Serum or plasma lutropin geoff surement (units/volume)on 09-28-2023 Lutropin Qn 19.0 m[IU]/mL . [place] Comment on above: Adult Female Range F [...] VERY IMPORTANT TO YOUR HEALTH. THE CURRENT [place] [employer] GUIDELINES RECOMMENDS ANNUAL MAMMOGRAPHY BEGINNING AT AGE 40. THIS FACILITY UTILIZES A REMINDER SYSTEM TO ENSURE ALL PATIENTS RECEIVE REMINDER NOTIFICATIONS AT THE APPROPRIATE TIME BASED ON THE RECOMMENDATIONS OF THIS EXAM. ELECTRONICALLY SIGNED BY: Everardo Walters MD Normal Not Available Comment on above: Order Comment: To iros ve repeated in 6 months. Compared to Mammogram done on Left breast on 12/21/2022. PAP ACOG PANEL 2: 30 to 65on 11-04-2022 . . Normal [facility] Comment on above: Result Comment: Perf ormed at: WB Performed By: #### [id number] #### [facility] [address] [place] [address] Dr. Kleber Deleon Age Gdln ACOG Testing 30-65 Normal [facility] Comment on above: Performed By: #### [id number] #### [facility] [address] [place] [address] Dr. Kleber Deleon DIAGNOSIS: Comment Normal [facility] Comment on above: Result Comment: NEGA TIVE FOR INTRAEPITHELIAL LESION OR MALIGNANCY. Performed at: WB Performed By: #### [id number] #### [facility] [address] [place] [address] Dr. Kleber Deleon HPV Aptima Negative Normal Negative [facility] Comment on above: Result Comment: This nucleic acid amplification test detects fourteen high-risk HPV types (16,18,31,33,35,39,45,51,52,56,58,59,66,68) without differentiation. Performed at: =G Performed By: #### [id number] #### [facility] [address] [place] [address] Dr. Kleber Deleon HPV Genotype Reflex Comment Normal [facility] Comment on above: Result Comment: Crit eria not met, HPV Genotype not performed. Performed at: WB Performed By: #### [id number] #### [facility] [address] [place] [address] Dr. Kleber Deleon Methodology: Comment Normal [facility] Comment on above: Result Comment: This liquid based ThinPrep(R) pap test was screened with the use of an image guided system. Performed at: WB Performed By: #### [id number] #### [facility] [address] [place] [address] Dr. Kleber Deleon Note: Comment Normal [facility] Comment on above: Result Comment: The Pap smear is a screening test designed to aid in the detection of premalignant and malignant conditions of the uterine cervix. It is not a diagnostic procedure and should not be used as the sole means of detecting cervical cancer. Both false-positive and false-negative reports do occur. . Performed at: WB Performed By: #### [id number] #### [facility] [address] [place] [address] Dr. Kleber Deleon Performed by: Comment Normal [facility] Comment on above: Result Comment: Alyssa Henderson, Bridge Engineer (ASCP) Performed at: WB Performed By: #### [id number] #### [facility] [address] [place], [place] [address] Dr. Kleber Deleon Specimen adequacy: Comment Normal [facility] Comment on above: Result Comment: Sati sfactory for evaluation. Endocervical and/or squamous metaplastic cells (endocervical component) are present. Performed at: WB Performed By: #### [id number] #### [facility] [address] [place], [place] [address] Dr. Kleber Deleon XR FACIAL MIN 3 [...] by: EVERARDO PORTER Date: 2022-04-20 07:52 Normal [facility] Cult,Genitalon 10-16-2018 Cult,Genital Specimen Description .VAGINA Special Requests NOT REPORTED Culture NORMAL URO-GENITAL DAVI STREPTOCOCCI, BETA HEMOLYTIC GROUP B ISOLATED. NEGATIVE FOR NEISSERIA GONORRHOEAE Report Status FINAL 10/16/2018 Normal [facility] Comment on above: Performed By: #### G EC #### [address] [id number] Machine Engineer: Bob Whitehead MD [facility] [address] [place] [address] [place] [address] Machine Engineer: Jorge Luis Nina MD Cytologyon 01-27-2018 Cytology (NOTE) [id number] [facility] ANATOMIC PATHOLOGY [address] [place], [place] [address] GYNECOLOGIC CYTOLOGY REPORT Patient Name: LAM MOORE MR#: [id number] Specimen #[id number] Source: 1: Cervical material, (ThinPrep vial, Imaging-assisted review) Clinical History Z01.419 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 - Endocervical/transformatio n zone component present. Descriptive Diagnosis: Negative for intraepithelial lesion or malignancy. Bridge Engineer: MATHEW Martino, CT(ASCP) Electronically Signed Out mathew/02/16/2018 [facility] Comment on above: Performed By: #### P PPVP #### [facility] [address] [place], [place] [id number] Vital Signs Date Time Vital Sign Value Performing Clinician Facility 10-26-2023 11:04-0400 Body height 175.26 cm MD Ngoc Martinez Work Phone: [place] 10-26-2023 11:04-0400 Body mass index (BMI) [Ratio] 25.8 kg/m2 MD Ngoc Martinez Work Phone: [place] 10-26-2023 11:04-0400 Body weight 79.43 kg MD Ngoc Martinez Work Phone: [place] 10-26-2023 11:04-0400 Diastolic blood pressure 86 mm[Hg] MD Ngoc Martinez Work Phone: [place] 10-26-2023 11:04-0400 Heart rate 73 /min MD Ngoc Martinez Work Phone: [place] 10-26-2023 11:04-0400 Systolic blood pressure 121 mm[Hg] MD Ngoc Martinez Work Phone: [place] 09-28-2023 13:33-0400 Body height 175.26 cm [facility] 09-28-2023 13:33-0400 Body mass index (BMI) [Ratio] 24.8 kg/m2 [place] 09-28-2023 13:33-0400 Body weight 76.43 kg [facility] 09-28-2023 13:33-0400 Diastolic blood pressure 91 mm[Hg] [place] 09-28-2023 13:33-0400 Heart rate 64 /min [facility] 09-28-2023 13:33-0400 Systolic blood pressure 128 mm[Hg] [place] 06-11-2023 10:15-0500 Body height 175.26 cm Ngoc Martinez Other [facility] Other 06-11-2023 10:15-0500 Body mass index (BMI) [Ratio] 25.99 kg/m2 Ngoc Martinez Other [facility] Other 06-11-2023 10:15-0500 Body weight 79.83 kg Ngoc Martinez Other [facility] Other 06-11-2023 10:15-0500 Diastolic blood pressure 76 mm[Hg] Ngoc Martinez Other [facility] Other 06-11-2023 10:15-0500 Systolic blood pressure 125 mm[Hg] Ngoc Martinez Other [facility] Other 03-11-2023 11:15-0400 Body height 175.26 cm Ngoc Martinez Other [facility] Other 03-11-2023 11:15-0400 Body mass index (BMI) [Ratio] 26.73 kg/m2 Ngoc Martinez Other [facility] Other 03-11-2023 11:15-0400 Body weight 82.1 kg Ngoc Martinez Other [facility] Other 03-11-2023 11:15-0400 Diastolic blood pressure 74 mm[Hg] Ngoc Martinez Other [facility] Other 03-11-2023 11:15-0400 Respiratory rate 20 /min Ngoc Martinez Other [facility] Other 03-11-2023 11:15-0400 Systolic blood pressure 118 mm[Hg] Ngoc Martinez Other [facility] Other 12-02-2022 09:00-0400 Body height 175.26 cm Ngoc Martinze Other [facility] Other 12-02-2022 09:00-0400 Body mass index (BMI) [Ratio] 26.73 kg/m2 Ngoc Martinez Other [facility] Other 12-02-2022 09:00-0400 Body weight 82.1 kg Ngoc Martinez Other [facility] Other 12-02-2022 09:00-0400 Diastolic blood pressure 72 mm[Hg] Ngoc Martinez Other [facility] Other 12-02-2022 09:00-0400 Systolic blood pressure 112 mm[Hg] Ngoc Martinez Other [facility] Other 09-02-2022 08:45-0500 Body height 175.26 cm Ngoc Martinez Other [facility] Other 09-02-2022 08:45-0500 Body mass index (BMI) [Ratio] 27.61 kg/m2 Ngoc Martinez Other [facility] Other 09-02-2022 08:45-0500 Body weight 84.82 kg Ngoc Martinez Other [facility] Other 09-02-2022 08:45-0500 Diastolic blood pressure 84 mm[Hg] Ngoc Martinez Other [facility] Other 09-02-2022 08:45-0500 SaO2% (BldA) [Mass fraction] 99 % Ngoc Martinez Other [facility] Other 09-02-2022 08:45-0500 Systolic blood pressure 142 mm[Hg] Ngoc Martinez Other [facility] Other Encounters Encounter Date Encounter Type Care Provider Facility Start: 11-02-2023 End: 11-02-2023 ambulatory KATIE LUISA Not Available Start: 10-26-2023 End: 10-26-2023 ambulatory MD Ngoc aMrtinez Work Phone: [facility] Work Phone: Start: 10-26-2023 End: 10-26-2023 Patient encounter procedure MD Ngoc Martinez Work Phone: [facility] Work Phone: Start: 10-13-2023 End: 10-13-2023 ambulatory Ngoc Martinez Facility:[place] Start: 10-13-2023 End: 10-13-2023 Departed Referred MD Ngoc Martinez Work Phone: [facility] Start: 10-13-2023 End: 10-13-2023 ambulatory MD Ngoc Martinez Work Phone: [facility] Work Phone: Start: 09-28-2023 End: 09-28-2023 ambulatory [facility] Work Phone: Start: 09-28-2023 End: 09-28-2023 Patient encounter procedure [facility] Work Phone: Start: 09-21-2023 End: 09-21-2023 ambulatory KATIE LUISA Not Available Start: 08-26-2023 Non-patient / Non-visit [facility] [employer] Work Phone: Start: 08-26-2023 Non-patient / Non-visit [facility] Work Phone: Start: 08-02-2023 End: 08-03-2023 ambulatory KATIE VALADEZ Not Available Start: 07-29-2023 End: 07-29-2023 ambulatory Ngoc Michelle Other [facility] Other Start: 07-29-2023 Telephone encounter Ngoc Michelle [facility] Start: 07-26-2023 End: 07-26-2023 ambulatory NGOC Valdo MICHELLE Facility:[facility] Start: 07-05-2023 Patient encounter procedure [facility]- Start: 07-02-2023 End: 07-02-2023 ambulatory Ngoc Michelle Other [facility] Other Start: 07-02-2023 Office outpatient vi sit 15 minutes Ngoc Michelle [facility] Start: 07-01-2023 End: 07-01-2023 ambulatory Ngoc Michelle Other [facility] Other Start: 07-01-2023 Telephone encounter Ngoc Michelle [facility] Start: 06-11-2023 End: 06-11-2023 ambulatory Ngoc Michelle Other [facility] Other Start: 06-11-2023 Office outpatient vi sit 15 minutes Ngoc Michelle [facility] Start: 06-03-2023 End: 06-03-2023 ambulatory Ngoc Michelle Other [facility] Other Start: 06-03-2023 Telephone encounter Ngoc Michelle [facility] Start: 06-02-2023 End: 06-02-2023 ambulatory Ngoc Michelle Other [facility] Other Start: 06-02-2023 Telephone encounter Ngoc Michelle [facility] Start: 05-27-2023 End: 05-27-2023 ambulatory Ngoc Martinez Other [facility] Other Start: 05-27-2023 Telephone encounter Ngoc Martinez [facility] Start: 05-06-2023 End: 05-06-2023 ambulatory Ngoc Martinez Other [facility] Other Start: 05-06-2023 Telephone encounter Ngoc Martinez [facility] Start: 04-14-2023 End: 04-14-2023 ambulatory Ngoc Martinez Other [facility] Other Start: 04-14-2023 Telephone encounter Ngoc Martinez [facility] Start: 04-08-2023 End: 04-08-2023 ambulatory Ngoc Martinez Other [facility] Other Start: 04-08-2023 Telephone encounter Ngoc Martinez [facility] Start: 04-01-2023 End: 04-01-2023 ambulatory Ngoc Martinez Other [facility] Other Start: 04-01-2023 Telephone encounter Ngoc Martinez [facility] Start: 03-11-2023 End: 03-11-2023 ambulatory Ngoc Martinez Other [facility] Other Start: 03-11-2023 Office outpatient vi sit 15 minutes Ngoc Michelle [facility] Start: 02-11-2023 End: 02-11-2023 ambulatory Ngoc Martinez Other [facility] Other Start: 02-11-2023 Telephone encounter Ngoc Martinez [facility] Start: 01-14-2023 End: 01-14-2023 ambulatory Ngoc Martinez Other [facility] Other Start: 01-14-2023 Telephone encounter Ngoc Martinez [facility] Start: 12-17-2022 End: 12-17-2022 ambulatory Ngoc Michelle Other [facility] Other Start: 12-17-2022 Telephone encounter Ngoc Martinez [facility] Start: 12-02-2022 End: 12-02-2022 ambulatory Ngoc Martinez Other [facility] Other Start: 12-02-2022 Office outpatient vi sit 15 minutes Ngoc Martinez [facility] Start: 11-20-2022 End: 11-20-2022 ambulatory Ngoc Martinez Other [facility] Other Start: 11-20-2022 Telephone encounter Ngoc Martinez [facility] Start: 10-27-2022 End: 10-27-[address] KATIE VALADEZ . Facility:[facility] Start: 10-22-2022 End: 10-22-2022 ambulatory Ngoc Martinez Other [facility] Other Start: 10-22-2022 Telephone encounter Ngoc Martinez [facility] Start: 09-24-2022 End: 09-24-2022 ambulatory Ngoc Martinez Other [facility] Other Start: 09-24-2022 Telephone encounter Ngoc Martinez [facility] Start: 09-02-2022 End: 09-02-2022 ambulatory Ngoc Martinez Other [facility] Other Start: 09-02-2022 Office outpatient vi sit 15 minutes Ngoc Martinez [facility] Start: 08-28-2022 End: 08-28-2022 ambulatory Ngoc Martinez Other [facility] Other Start: 08-28-2022 Telephone encounter Ngoc Martinez [facility] Start: 04-30-2022 Gynecological examination normal Ngoc Martinez Other [facility] Other Start: 04-20-2022 End: 04-20-2022 ambulatory MARIO FIELD . Facility:[facility] Start: 11-10-2021 End: 11-10-2021 Pre-procedure evaluation check Ngoc Martinez Other [facility] Other Start: 10-13-2018 End: 10-14-2018 Patient encounter procedure [facility] Start: 01-27-2018 Encounter for gynecological examination (general) (routine) without abnormal findings [facility] Start: 01-27-2018 End: 01-28-2018 Patient encounter procedure [facility] Procedures Date Procedure Procedure Detail Performing Clinician Start: 10-13-2018 Cul bact xcpt urine blood/stool aerobic isol [facility] Start: 01-27-2018 Cytopathology proced ure, preparation of smear, [facility] Start: 11-30-2016 Pre-surgery evaluation Ngoc Martinez Other End: 09-12-2021 Depression screening Ngoc Martinez Other End: 12-09-2020 Diabetes mellitus screening Ngoc Martinez Other Plan of Treatment Date Care Activity Detail Author XR Lumbar spine 2 or 3 Views [place] Payers Date Payer Category Payer Medicare [id number] 2018 Medicare [id number] 2014 Medicare [id number] 1980 Unknown [id number] 2.16.8 [id number] 1981 Unknown [id number] 2.16.8 [id number] 1981 Unknown [id number] 2.16.84 [id number] 1981 Unknown [id number] 2.16.84 [id number] 1981 Unknown [id number] 2.16.84 [id number] 1981 Unknown [id number] 2.16.84 [id number] 1981 Unknown [id number] 2.16.84 [id number] 1981 Unknown [id number] 2.16.84 [id number] 1958 Medicaid [id number] 2. [id number] 1958 Medicare [id number] 2. [id number] Social History Date Type Detail Facility Sex Assigned At [facility] Other Start: [facility]05[facility]2023 [facility] [place] Start: 1980 Sex Assigned At Female F [facility] Clinical Notes 04-20-2022 to 07-29-2023 Note Date & Type Note Facility 07-29-2023 Evaluation note Encounter Date Diagnosis Assessment Notes Jul, Left shoulder pain (ICD-10 - M25.512) [facility] [employer] [facility] Other 01-29-2024 NoteHNO ID: [id number] Author: RONNY MARTINEZ MD Service: ? Author Type: Physician Type: Progress Notes Filed: 07/26/2023 14:37 Note Text: VIRTUAL VISIT PROGRESS NOTE This is a virtual visit using [employer] Zoom Video Visit. It required patient-provider interaction for the medical decision making as documented below. I have communicated my name and active licensure. The patient's identity and physical location were verified at the time of this visit. Either the patient or their legal public relations representative has been informed of the risks [...] monitor thyroid function/TSH. RTC TBD. Ronny Martinez, [facility]01-05-2024 Evaluation note* Encounter Date Diagnosis Assessment [...] than 5 days since start of symptoms [employer] Other 01-04-2024 Evaluation note* Encounter Date Diagnosis Assessment Notes Treatment Notes Treatment Clinical Notes Jun, Left shoulder pain (ICD-10 - M25.512) [employer] Other 12-15-2023 Evaluation note* Encounter Date Diagnosis Assessment Notes Treatment Notes Treatment Clinical Notes May, Acquired hypothyroidism (ICD-10 - E03.9) Pt advised referral was sent on 05/27. She is welcome to make her own appt a [facility] as well. Will check labs in meantime. May, Fatigue, unspecified type (ICD-10 - R53.83) Pt agrees to labs. May, Left shoulder pain (ICD-10 - M25.512) Lam agrees to decrease dose to 5/325 w next fill in June. Reviewed OARRS. [employer] Other 12-07-2023 Evaluation note* Encounter Date Diagnosis Assessment Notes Treatment Notes Treatment Clinical Notes May, Left shoulder pain (ICD-10 - M25.512) [employer] Other 11-30-2023 Evaluation note* Encounter Date Diagnosis Assessment Notes Treatment Notes Treatment Clinical Notes Apr, Acquired hypothyroidism (ICD-10 - E03.9) [employer] Other 11-09-2023 Evaluation note* Encounter Date Diagnosis Assessment Notes Treatment Notes Treatment Clinical Notes Apr, Left shoulder pain (ICD-10 - M25.512) [employer] Other 10-12-2023 Evaluation note* Encounter Date Diagnosis Assessment Notes Treatment Notes Treatment Clinical Notes Mar, Left shoulder pain (ICD-10 - M25.512) Mar, Acquired hypothyroidism (ICD-10 - E03.9) [employer] Other 10-05-2023 Evaluation note* Encounter Date Diagnosis Assessment Notes Treatment Notes Treatment Clinical Notes Mar, Left shoulder pain (ICD-10 - M25.512) [employer] Other 09-14-2023 Evaluation note* Encounter Date Diagnosis [...] of breath. . Increase fluids and rest. [id number]-[id number] antipyretics as needed. Warning signs and symptoms reviewed with patient today. Patient to go immediately to the ER should she experience any of these. Patient to notify office should her symptoms persist and not improve. Patient verbalizes understanding and agrees to treatment plan. Feb, Left shoulder pain (ICD-10 - M25.512) Chronic problem, take med as prescribed. Reviewed OARRS report. Followup in 3 months. [employer] Other 08-17-2023 Evaluation note* Encounter Date Diagnosis Assessment Notes Treatment Notes Treatment Clinical Notes Jan, Acute thoracic back pain, unspecified back pain laterality (ICD-10 - M54.6) [employer] Other 07-20-2023 Evaluation note* Encounter Date Diagnosis Assessment Notes Treatment Notes Treatment Clinical Notes Dec, Acute thoracic back pain, unspecified back pain laterality (ICD-10 - M54.6) [employer] Other 06-22-2023 Evaluation note* Encounter Date Diagnosis Assessment Notes Treatment Notes Treatment Clinical Notes Nov, Acute thoracic back pain, unspecified back pain laterality (ICD-10 - M54.6) [employer] Other 06-07-2023 Evaluation note* Encounter Date Diagnosis Assessment Notes Treatment Notes Treatment Clinical Notes Nov, Moderate persistent asthma without complication (ICD-10 - J45.40) Nov, Vomiting with nausea, not intractable (ICD-10 - R11.2) Nov, Neck pain (ICD-10 - M54.2) OAR[place] report processed and reviewed and shows no violations. Pt understands to use only as needed and consider dose reduction at next OV. [employer] Other 06-07-2023 Evaluation note* Encounter Date Diagnosis [...] and consider dose reduction at next OV. [employer] Other 04-27-2023 Evaluation note* Encounter Date Diagnosis Assessment Notes Treatment Notes Treatment Clinical Notes Sep, Acute thoracic back pain, unspecified back pain laterality (ICD-10 - M54.6) [employer] Other 03-08-2023 Evaluation note* Encounter Date Diagnosis [...] Will continue to decrease with next rx. [employer] Other 03-08-2023 Evaluation note* Encounter Date Diagnosis [...] as listed above for the breast area. [employer] Other 10-24-2022 NotePROCEDURE: XR FOREARM RT 2V HISTORY: Falls ; fell down stairs, right forearm pain COMPARISON: None. FINDINGS: BONES:Transverse fracture through mid ulnar diaphysis without displacement. Unremarkable radius. SOFT TISSUES:No visible soft tissue swelling. EFFUSION:None visible. OTHER: Negative. IMPRESSION: 1. Acute, nondisplaced mid ulnar diaphyseal fracture. Electronically authenticated by: EVERARDO PORTER Date: 2022-04-20 07:54[facility] noteNo InformationNort M/A-COM Other Evaluation note* Diagnosis Onset Date Resolution Status Thoracic back pain acute [facility] Work Phone: Evaluation note* Diagnosis Onset Date Resolution Status Thoracic back pain acute Acute lumbar back pain acute Thoracic back pain acute [facility] Work Phone: History general Narrative - Reported* Type Description Date Medical History Asthma Medical History Depression Medical History GERD Medical History Fibromyalgia Medical History Anxiety Surgical History Left wrist fracture repair 2013 Surgical History Gall Bladder 2001 Surgical History Skin Graft Hospitalization History See Hospitalization History 1 Jun 2014 [employer] Other Summary Purpose Family History No Family History Records Found Relationship Condition Age at Onset Recorded Date/T juju family member Unknown Not Specified Family history of mental disorder Unknow n Advance Directives No Advanced Directives Records Found Advance Directive Response Recorded Date/ Time Advance Directives No September 27 9:03am Reason for Referral Reason *FU 06/04 Recent l abs normal in March on present dose, would like to have second opinion due to fatigue. Diagnosis 1 Acquired hypothyroid ism (E03.9) Referral Organization [facility] fariha Referring Provider First Name Ngoc Referring Provider Last Name Michelle Referring Provider Specialty Family [facility] cine Referred Organization [facility] [place]erred Address [address] [place],[address] Referred Provider Specialty Endocrinolog y Referral Priority Routine General Notes EnocLucretia cordero 12:22:13 PM >received today, attachments made, form [...] DATE CREATED AUTHOR AUTHOR'S ORGANIZ ATION 07/27/2023 [facility] DATE CREATED AUTHOR AUTHOR'S ORGANIZ ATION 10/19/2023 [facility] DATE CREATED AUTHOR AUTHOR'S ORGANIZ ATION 11/04/2023 [facility] EPIC REASON FOR VISIT (unrecogniz ed section and content) Prescriptions3 month Follow uprefill3 month Follow uprefillNo Information3 month Follow uprefill3 month Follow uprefillRefill3 month Follow upRefillsmessagethyroid labsrefillreferralNo InformationrefillMed Check UpRefillCOVID [facility] [phone] Care Teams (unrecognized sec tion and content) Team Status: Active Member Role Status Dates Ngoc Martinez MD Primary Care Provider Active Team Status: Active Member Role Status Dates Provider Conversion Attending Provider Active St art: July 05, 2023 Team Status: Active Member Role Status Wilver Martinez MD Primary Care Provider Active Start: August 26, 2023 SANTA Roe Attending Provider Active Start : August 26, 2023 Team Status: Inactive Member Role Status Wilver Martinez MD Primary Care Provide r, Attending Provider Active Start: September 28, 2023 End: September 28, 2023 Team Status: Inactive Member Role Status Wilver Martinez MD Primary Care Provider Active Start: October 13, 2023 End: October 13, 2023 Katie Valadez Attending Provider Active Start: Ap 2023 End: October 13, 2023 Team Status: Inactive Member Role Status Wilver Martinez MD Primary Care Provide r, Attending [...] BE BASED ON THE PRIMARY CLINICAL RECORDS. [facility] [employer] [facility]. provides no warranty or guarantee of the accuracy or completeness of information in this document.
[2023-11-12 06:34] LABS: Basophils Absolute Auto 0.1 10^3/uL (0.0-0.1); Basophils Percent Auto 0.5 % (0.2-2.0); Eosinophils Absolute Auto 0.4 10^3/uL (0.0-0.7); Eosinophils Percent Auto 3.8 % (0.9-7.0); Hematocrit 40.6 % (36.0-48.0); Hemoglobin 13.4 g/dL (12.0-16.0); Immature Granulocytes Abs Auto 0.01 10^3/uL (0.00-0.03); Immature Granulocytes Pct Auto 0.1 % (0.0-0.5); Lymphocytes Absolute Auto 4.3 10^3/uL (1.2-3.8); Lymphocytes Percent Auto 45.1 % (20.5-60.0); Mean Corpuscular Hemoglobin 31.1 pg (26.7-34.0); Mean Corpuscular Volume 94.2 fL (81.0-99.0); Mean Platelet Volume 9.9 fL (9.5-13.5); Monocytes Absolute Auto 0.8 10^3/uL (0.3-0.8); Monocytes Percent Auto 7.9 % (1.7-12.0); Neutrophils Percent Auto 42.6 % (43.0-75.0); Platelet Count 275 10^3/uL (150-450); Red Blood Count 4.31 10^6/uL (4.20-5.40); Red Cell Distribution Width 13.1 % (11.0-15.0); White Blood Count 9.4 10^3/uL (4.0-11.0)
[2023-11-12 06:50] LABS: HCG Quantitative <1 mIU/mL
[2023-11-12] MEDS: LACTATED RINGER'S SOLUTION 1,000 ML 150 ML IV (07:00)
--- NOTE | 2023-11-12 08:23 | PM.ONB ---
Brief Operative Note Date of procedure: 11/12/23 Pre-op diagnosis general: menorrhagia Post-op diagnosis: same as pre-op Procedure: NAME OF PROCEDURE: D&c hysteroscopy ] PROCEDURE: The patient was taken back to the Operating Room where she was prepped and draped in normal sterile fashion after being placed under general anesthesia without difficulty. She was also placed in the dorsal lithotomy position. A weighted speculum was placed in the patient?s vagina. The anterior lip of the cervix was identified and grasped with a single tooth tenaculum. The patient?s uterus was then sounded roughly to [? 7] cm. The patient was then gently dilated using Hegar dilators. The hysteroscope was passed through the patient?s cervix into the uterus. Unable to adequately visualize uterine cavity, cavity appeared to be scared down, pt was not a candidate for ablation. The hysteroscope was then removed from the uterus. . The single tooth tenaculum was then removed from the patient's anterior lip of the cervix where excellent hemostasis was noted. All instruments were removed from the patient?s vagina. The patient tolerated the procedure well. Sponge, lap and needle counts were correct times two. The patient was taken to the Recovery Room in stable condition.Room in stable condition. Anesthesia: MAC Surgeon: Yoandy Valadez Estimated blood loss (mL): 5 Pathology: none sent Condition: stable Disposition: PACU Urinary Catheter Management Urinary Catheter Management Urethral: Cath placed during this visit: no
[2023-11-12] MEDS: HYDROCODONE/ACET 5-325 MG TABLET 1 TAB PO (08:38)
[2023-11-12] MEDS: HYDROMORPHONE HCL 0.5 MG/0.5 ML SYRINGE 0.400000000000000022 MG IV (08:39)
== END 2023-11-12 09:45 | disposition home or self-care (01) ==
PROVIDERS: PCP Family Medicine; Visit Provider Obstetrics & Gynecology
PROC: (CPT 952; principal; 2023-11-12 07:30)
DX: N92.0 Excessive and frequent menstruation with regular cycle (principal); N93.9 Abnormal uterine and vaginal bleeding, unspecified; R10.2 Pelvic and perineal pain
CPT/HCPCS: 58555; 36415; 84702; 85025; J1094; J1170; J2704

== ENCOUNTER 2024-04-14 09:52 | Outpatient (OUT) | payer MEDICAID, OTHER, SELFPAY ==
--- OUTSIDE RECORDS SUMMARY | 2024-04-14 09:59 | XMS_ITS | CCD ---
Author Organization [facility] Care Team Providers Care Media Supervisor Name Role Phone JOSÉ SOSA Referring Unavailable NGOC MARTINEZ Primary Care Unavailable JOSÉ SOSA Referring Unavailable MICHELLE, NGOC Primary Care Unavailable Wu Martinezia Unavailable RASHIDA Saldana, MARIO Admitting Unavailable MICHELLE, [...] Valadez Attending Unavailable Katie Valadez Admitting Unavailable NGOC MARTINEZ Referring Unavailable NGOC MARTINEZ Primary Care Unavailable NGOC MARTINEZ Referring Unavailable NGOC MARTINEZ Primary Care Unavailable NGOC MARTINEZ Referring Unavailable NGOC MARTINEZ Primary Care Unavailable KATIE VALADEZ Referring Unavailable KATIE VALADEZ Attending Unavailable KATIE VALADEZ Attending Unavailable KATIE VALADEZ Attending Unavailable KATIE VALADEZ Attending Unavailable Allergies Allergy Classification Reported Allergen(s) Allergy Type Date of Onset Reaction(s) Facility (20 sources) Acetaminophen / butalbital / Caffeine Drug Allergy Unknown [facility] Other (20 sources) cyclobenzaprine; Translations: [Flexeril] Drug Allergy 12-26-19 13 Unknown [facility] (20 sources) Sertraline; Translations: [SERTRALINE] Drug Allergy 03-31-20 18 Unknown, [facility] (20 sources) SUMAtriptan; Translations: [SUMATRIPTAN] Drug Allergy 10-01-19 17 Unknown, [facility] (20 sources) topiramate; Translations: [TOPIRAMATE] Drug Allergy 10-22-19 21 Unknown, [facility] (20 sources) varenicline; Translations: [VARENICLINE] Drug Allergy 10-22-19 21 Unknown, [facility] (1 source) Acetaminophen / butalbital / Caffeine Drug Allergy 12-26-19 13 [facility] (1 source) diphenhydrAMINE Drug Allergy 12-26-19 13 [facility] (1 source) Iodine (And Iodine Containting Drugs) Drug allergy (disorder) [facility] (1 source) Plasmin Drug Allergy 12-26-19 13 [facility] (2 sources) Progesterone; Translations: [PROGESTERONE] Drug Allergy 07-14-19 15 [facility] (1 source) Sertraline Drug Allergy 12-26-19 13 [facility] (1 source) topiramate Drug Allergy 12-26-19 13 [facility] (1 source) traMADol Drug Allergy 06-15-20 16 [facility] (1 source) varenicline Drug Allergy [facility] Rep[facility] (13 sources) Acetaminophen / butalbital / Caffeine / Codeine Drug Allergy Unknown [facility] Other (1 source) Contrast media Propensity to adverse reactions 09-11-19 17 Unknown [facility] Other (13 sources) Iodinated contrast media (substance) Drug allergy Unknown [facility] Other (1 source) Allergies Reconciled Propensity to adverse reactions 03-31-20 21 Unknown [facility] Other (1 source) patient allergy list reviewed by nurse or physicia Propensity to adverse reactions 02-17-20 19 Comment:Done [facility] Other (13 sources) MRI DYE Propensity to adverse reactions 10-20-19 17 Unknown [facility] Other (13 sources) Chantix *PSYCHOTHERAPEUTIC AND NEUROLOGICAL AGENTS Propensity to adverse reactions Unknown [facility] [employer] Other (13 sources) Contrast Allergy PreMed Pack *CORTICOSTEROIDS* Propensity to adverse reactions Comment:MRI DYE Signal Data [facility] [employer] Other (13 sources) Flexeril *MUSCULOSKELETAL THERAPY AGENTS* Propensity to adverse reactions Unknown [facility] [employer] Other (4 sources) Acetaminophen Drug Allergy 09-28-19 24 [facility] (4 sources) butalbital Drug Allergy 09-28-19 24 [facility] (4 sources) Caffeine Drug Allergy 09-28-19 24 [facility] (5 sources) cyclobenzaprine; Translations: [CYCLOBENZAPRINE] Drug Allergy 10-01-19 17 [facility] (4 sources) Iodinated Contrast Media Allergy to substance 09-28-19 24 [facility] (4 sources) Chantix *PSYCHOTHERAPEUTIC AND Allergy to substance 09-28-19 24 [facility] (4 sources) Contrast Allergy PreMed Pack * Allergy to substance 07-05-19 Comment:MRI DYE [facility] (4 sources) Fioricet/Codeine Allergy to substance 09-28-19 24 [facility] (1 source) Contrast media; Translations: [DYE] Propensity to adverse reactions to drug (disorder) 10-22-19 [facility] (1 source) Corticosteroids; Translations: [CORTICOSTEROIDS (GLUCOCORTICOIDS)] Propensity to adverse reactions to drug (disorder) 10-22-19 [facility] (1 source) diphenhydrAMINE; Translations: [DIPHENHYDRAMINE] Drug Allergy 10-01-19 [facility] (1 source) SUMAtriptan; Translations: [SUMATRIPTAN SUCCINATE] Drug Allergy 12-01-19 [facility] (1 source) traMADol; Translations: [TRAMADOL] Drug Allergy 10-01-19 [facility] (1 source) BUTALBITAL-ACETAMI NOPHEN-CAFF; Translations: [BUTALBITAL-ACETAM INOPHEN-CAFF] Propensity to adverse reactions to drug (disorder) 10-01-19 [facility] (1 source) DIVALPROEX; Translations: [DIVALPROEX] Propensity to adverse reactions to drug (disorder) 12-03-19 [facility] (1 source) IODINE AND IODIDE CONTAINING PRODUCTS; Translations: [IODINE AND IODIDE CONTAINING PRODUCTS] Propensity to adverse reactions to food (disorder) 10-22-19 [facility] (1 source) OTHER; Translations: [OTHER] Propensity to adverse reactions (disorder) 10-22-19 [facility] Medications Current Medications Medication Drug Class(es) Dates Sig (Normalized) Sig (Original) acetaminophen 325 mg / oxyCODONE hydrochloride 5 mg oral tablet (20 sources) Opioid Agonist Start: 09-28-2023 End: 12-27-2023 take 1 tablet by mouth every twelve hours Oxycodone-Acetami nophen Active 1 TAB PO Every 12 hours 60 December 27, 2023 Start: 08-26-2023 End: 09-28-2023 take 1 [...] as needed Orally every 6 hrs Not-Taking [id number] 200 actuat albuterol 0.09 mg/actuat metered dose [...] daily x 4 more days for 5 Jun, Active Start: 03-11-2023 Azithromycin 2 50 [...] tablet (20 sources) Aminoketone Start: 08-26-2023 End: 11-26-2023 take 300 mg by mouth once daily Bupropion Hcl Active 300 MG PO Daily November 26, 2023 8:40am Start: 11-20-2022 take 1 tablet by ledy th every twenty-four hours buPROPion HCl ER (XL) 300 MG 1 tablet in the morning Orally Once a day for 90 days October, Active fluticasone propionate 0.05 mg/actuat metered dose nasal spray (20 sources) Corticosteroid Start: 12-27-2023 Fluticasone Pr opionate Active 2 SPRAY INTRANASAL Daily December 27, 2023 9:44am Start: 09-28-2023 End: 12-27-2023 take 2 spray(s) nasal route once daily Fluticasone Propionate Discontinued INTRANASAL September 28, 2023 12:00am December 27, 2023 9:47am Free[facility]: INSTILL 2 SPRAYS INTO EACH NOSTRIL [...] tablet (20 sources) l-Thyroxine Start: 09-27-2023 End: 12-27-2023 take 1 tablet by mouth once daily Levothyroxine Active 75 MCG PO Daily December 27, 2023 9:45am FreeTextSig: TAKE ONE TABLET BY MOUTH DAILY; [...] sources) Leukotriene Receptor Antagonist Start: 09-27-2023 End: 12-27-2023 take 1 tablet by mouth once daily at bedtime Montelukast (Singulair) 10 mg tablet Active 10 MG PO Daily at bedtime December 27, 2023 9:45am Free[facility]Si tablet Orally at bedtime; Note: Source Status: Taking; Provider: Michelle Grossman ( ) take 1 tablet by mouth at bedtim e Singulair 10 mg 1 tablet Orally at bedtime Active Pre- (20 sources) Pre-Ruthy Active predniSONE 20 mg oral tablet (9 sources) Start: 01-17-2024 take 20 mg by mouth twice daily Prednisone Active 20 MG PO Twice daily January 17, 2024 12:00am Start: 03-11-2023 take 2 tablets by [facility] every twenty-four hours predniSONE 20 MG 2 tablets Orally Once a day for 5 days Feb, Active pregabalin 200 mg oral capsule (20 sources) Start: 01-17-2024 take 200 mg by mouth twice daily Pregabalin Active 200 MG PO Twice daily 60 January 17, 2024 3:36pm Start: 11-26-2023 End: 01-17-2024 take 1 capsule by mouth twice daily Pregabalin (Lyrica) 150 mg capsule Discontinued 150 MG PO Twice daily 60 December 27, 2023 9:45am January 17, 2024 3:39pm Start: 07-30-2023 Pregabalin 150 mg TAKE ONE CAPSULE BY MOUTH TWICE A DAY FOR 30 DAYS for 30 Jul, Active Start: 04-05-2023 Pregabalin 150 mg TAKE ONE CAPSULE BY MOUTH TWICE A DAY FOR 30 DAYS for Mar, Active Start: 07-01-2022 take 1 capsule by [facility] every twelve hours Lyrica 150 MG 1 capsule Orally Twice a day for 30 days October, Active Start: 07-01-2022 take 1 capsule by [facility] every twenty-four hours Lyrica 150 MG 1 capsule Orally Once a day for 30 days Jun, Active promethazine hydrochloride 25 mg oral tablet (20 sources) Phenothiazine Start: 09-28-2023 take 25 mg by mouth three times daily Promethazine Active 25 MG PO Three times daily September 28, 2023 12:00am take 1 tablet by [facility] three times daily as needed Phenergan 25 [...] day(s) Aug, Active Tens Unit And Electrodes (2 sources) Start: 10-26-2023 Tens Unit And Electrodes Active 0 .Route October 26, 2023 12:00am As directed tiZANidine 4 mg oral tablet (13 sources) Central alpha-2 Adrenergic Agonist Start: 09-28-2023 End: 12-27-2023 take 4 mg by mouth once daily at bedtime Tizanidine Active 4 MG PO Daily at bedtime December 27, 2023 9:45am take 1 tablet by ledy th every twelve hours Zanaflex 4 mg 1 tablet as needed Orally bid Not-Taking Completed/Discontinued Medications Medication Drug Class(es) Dates Sig (Normalized) Sig (Original) ALPRAZolam 1 mg oral tablet (6 sources) Benzodiazepine take 1 tablet by mouth every eight hours Xanax 1 MG 1 tablet Orally Three times a day Not-Taking cephalexin 500 mg oral tablet (17 sources) Cephalosporin Antibacterial Start: 09-28-2023 End: 09-28-2023 [...] trimester] Onset: 10-07-2020 Resolved: 10-15-2020 Episodic Other connective tissue disease (1 source) Fibromyalgia; Translations: [Fibromyalgia] 11-26-2023 Episodic Other female genital disorders (1 source) [...] conditions (not mental disorders or infectious disease) (9 sources) Encounter for screening for malignant neoplasm [...] Translations: [22 weeks gestation of ] Episodic Residual codes; unclassified (1 source) Pain, unspecified; Translations: [Pain, unspecified] Onset: 11-11-2023 Episodic Spondylosis; intervertebral disc disorders; other back [...] 06-16-2016 Episodic Other aftercare (1 source) Other care home (current) drug therapy; Translations: [OTH HALF-WAY CURRENT DRUG THERAPY] Onset: 04-21-2022 Episodic Other [...] Test Name Value Interpretation Reference Range Facility Basophils Auto (Bld) [#/Vol] on 11-12-2023 Basophils (Bld) [#/Vol] 0.1 10 3/uL 0.0-0.1 [facility] Basophils/100 WBC Auto (Bld) on 11-12-2023 Basophils/100 WBC (Bld) 0.5 % 0.2-2.0 [facility] Eosinophils/100 WBC Auto (Bl d)on 11-12-2023 Eosinophils/100 WBC (Bld) 3.8 % 0.9-7.0 [facility] Erythrocyte distribution wid th Auto (RBC) [Ratio]on 11-12-2023 Erythrocyte distribution width (RBC) [Ratio] 13.1 % 11.0-15.0 [facility] Hematocrit Auto (Bld) [Volum e fraction]on 11-12-2023 Hematocrit (Bld) [Volume fraction] 40.6 % 36.0-48.0 [facility] Hemoglobin [Mass/volume] in Bloodon 11-12-2023 Hemoglobin (Bld) [Mass/Vol] 13.4 g/dL 12.0-16.0 [facility] Laboratory - Hematology and Cell countson 11-12-2023 Immature granulocytes/100 WBC (Bld) 0.1 % 0.0-0.5 [facility] Leukocytes [#/volume] correc gem for nucleated erythrocytes in Blood by Automated counon 11-12-2023 WBC corrected for nucl RBC Auto (Bld) [#/Vol] 9.4 10 3/uL 4.0-11.0 [facility] Lymphocytes Auto (Bld) [#/Vo l]on 11-12-2023 Lymphocytes (Bld) [#/Vol] 4.3 10 3/uL High 1.2-3.8 [facility] Lymphocytes/100 WBC Auto (Bl d)on 11-12-2023 Lymphocytes/100 WBC (Bld) 45.1 % 20.5-60.0 [facility] MCH Auto (RBC) [Entitic mass ]on 11-12-2023 MCH (RBC) [Entitic mass] 31.1 pg 26.7-34.0 [facility] MCHC Auto (RBC) [Mass/Vol]on 11-12-2023 MCHC (RBC) [Mass/Vol] 33.0 g/dL 29.9-35.2 [facility] MCV Auto (RBC) [Entitic vol] on 11-12-2023 MCV (RBC) [Entitic vol] 94.2 fL 81.0-99.0 [facility] Monocytes Auto (Bld) [#/Vol] on 11-12-2023 Monocytes (Bld) [#/Vol] 0.8 10 3/uL 0.3-0.8 [facility] Monocytes/100 WBC Auto (Bld) on 11-12-2023 Monocytes/100 WBC (Bld) 7.9 % 1.7-12.0 [facility] Neutrophils Auto (Bld) [#/Vo l]on 11-12-2023 Neutrophils (Bld) [#/Vol] 4.0 10 3/uL 1.4-6.5 [facility] Neutrophils/100 WBC Auto (Bl d)on 11-12-2023 Neutrophils/100 WBC (Bld) 42.6 % Low 43.0-75.0 [facility] No Panel Informationon 11-11 Eosinophils # (Auto) 0.4 10 3/uL 0.0-0.7 [facility] Human Chorionic Gonadotropin, Quant <1 mIU/mL [facility] Comment on above: 5-50 0.2-1 IESH91-90 0 1-2 NADIE759-2,000 2-3 HKIPR619-66,000 3-4 WEEKS1,000-50,000 4-5 WEEKS10,000-100,000 5-6 WEEKS15,000-200,000 6-8 WEEKS10,000-100,000 2-3 MONTHS Immature Granulocyte # (Auto) 0.01 10 3/uL 0.00-0.03 [facility] Platelet mean volume Auto (B ld) [Entitic vol]on 11-12-2023 Platelet mean volume (Bld) [Entitic vol] 9.9 fL 9.5-13.5 [facility] Platelets Auto (Bld) [#/Vol] on 11-12-2023 Platelets (Bld) [#/Vol] 275 10 3/uL 150-450 [facility] RBC Auto (Bld) [#/Vol]on RBC (Bld) [#/Vol] 4.31 10 6/uL 4.20-5.40 [facility] Human papilloma virus 16+18+ 31+33+35+39+45+51+52+56+58+59+66+68 DNA [Presence] in [place] 11-02-2023 HPV 16+18+31+33+35+39+45+51+ 52+56+58+59+66+68 DNA Probe+sig amp Ql (Cvx) Negative Negative [facility] Comment on above: This nucleic acid am plification test detects fourteen high-risk HPV types (16,18,31,33,35,39,45,51,52,56,58,59,66,68)without differentiation.Performed at: =G - [facility] [address] [id number] Director: Annia Jiménez MD, Phone: [phone] at: - [facility] [address] [id number] Director: Annia Jiménez MD, Phone: [phone] No Panel Informationon 11-01 HPV High Risk Other Comment Note . [facility] Comment on above: TESTS RESULT FLAG UN ITS REF RANGE LAB --DIAGNOSIS: 02 NEGATIVE FOR INTRAEPITHELIAL LESION OR MALIGNANCY.Specimen adequacy: 02 Satisfactory for evaluation. No endocervical component is identified.Performed by: Jonathan Nelson, Boiler/Chiller Operator (ASCP). 02Note: Note 02 The Pap smear is a screening test designed to aid in the detection of premalignant and malignant conditions of the uterine cervix. It is not a diagnostic procedure and should not be used as the sole means of detecting cervical cancer. Both false-positive and false-negative reports do occur.Test Methodology: Note 02 This liquid based ThinPrep(R) pap test was screened with the use of an image guided system.HPV Genotype Reflex Note 02 Criteria not met, HPV Genotype not performed. --------- FLAG LEGEND: L-Low Normal,H-High Normal,LL-Alert Low,HH-Alert High <-Panic Low,>-Panic High,A-Abnormal,AA-Critical Abnormal -------Performed at:[address] [facility] [id number] Annia Jiménez MD, Reference Lab Test Patient Age Note . [facility] Comment on above: TESTS RESULT FLAG UN ITS REF RANGE LAB -- Clinician Provided Cytology Information Source.............Cervix;Endocervix No. of containers..01 ThinPrep VialAge Algo ACOG Cathie... 30-65 01 - FLAG LEGEND: L-Low Normal,H-High Normal,LL-Alert Low,HH-Alert High <-Panic Low,>-Panic High,A-Abnormal,AA-Critical Abnormal -------Performed at:01 =G [facility] [address] Annia Jiménez MD, Ayo 10-13-2023 L Specimen: [id number] Received: 10/14/23 Status: JULIAN Amaya Num: [id number] Spec Type: Surgical Subm Dr: Katie Valadez Tissues: A Endometrium - Biopsy (ENDOMETRIAL BX) Procedures: HE/2, Gross/Micro L4 Age/ Patient Sex Location Account Attending Physician OscarLam Malaika 43/F [facility] [id number] Katie Valadez SPEC NUM: [id number] RECD: 10/14/23 STATUS: BOBNeymar AMAYA NUM: [id number] WHIT: 10/13/23- SUBM DR: Katie Valadez ENTERED: 10/14/23 [facility] DR: SPEC TYPE: Surgical DEPT: S ENTERED BY: [id number] RECV BY: [id number] ORDERED: HE/2, Gross/Micro L4 ORDERED: HE/2, Gross/Micro [...] history: Irregular menstrual cycle TW CPT Codes 28700 Specimen: [id number] Received: 10/14/23 Status: JULIAN Amaya Num: [id number] Spec Type: Surgical Subm Dr: Katie Valadez Tissues: A Endometrium - Biopsy (ENDOMETRIAL BX) Procedures: HE/2, Gross/Micro L4 Patient: Vernell Mooreica Malaika [id number] (Continued) Signed (signature on file) Douglas Deleon MD 10/18/232101 Normal [facility] Basophils Auto (Bld) [#/Vol] on 09-28-2023 Basophils (Bld) [#/Vol] 0.1 10 3/uL 0.0-0.1 [facility] Basophils/100 WBC Auto (Bld) on 09-28-2023 Basophils/100 WBC (Bld) 0.8 % 0.2-2.0 [facility] Eosinophils/100 WBC Auto (Bl d)on 09-28-2023 Eosinophils/100 WBC (Bld) 3.4 % 0.9-7.0 [facility] Erythrocyte distribution wid th Auto (RBC) [Ratio]on 09-28-2023 Erythrocyte distribution width (RBC) [Ratio] 13.1 % 11.0-15.0 [facility] Glucose mean value [Mass/vol ume] in Blood Estimated from glycated hemoglobinon 09-28-2023 Average glucose Estimated from glycated hemoglobin (Bld) [Mass/Vol] 91 mg/dL [facility] Hematocrit Auto (Bld) [Volum e fraction]on 09-28-2023 Hematocrit (Bld) [Volume fraction] 41.1 % 36.0-48.0 [facility] Hemoglobin [Mass/volume] in Bloodon 09-28-2023 Hemoglobin (Bld) [Mass/Vol] 13.3 g/dL 12.0-16.0 [facility] Laboratory - Chemistry and C hemistry - challengeon 09-28-2023 Free T4 [Mass/Vol] 0.93 ng/dL 0.76-1.46 [facility] TSH Qn 1.327 m[IU]/L 0.358-3.74 0 [facility] Laboratory - Hematology and Cell countson 09-28-2023 HbA1c (Bld) [Mass fraction] 4.8 % 4.5-6.2 [facility] Comment on above: ADA RECOMMENDED LIMI T 4.0 - 6.0ADA THERAPEUTIC TARGET < 7.0ACTION SUGGESTED> 7.0 Immature granulocytes/100 WBC (Bld) 0.1 % 0.0-0.5 [facility] Leukocytes [#/volume] correc gem for nucleated erythrocytes in Blood by Automated counon 09-28-2023 WBC corrected for nucl RBC Auto (Bld) [#/Vol] 7.1 10 3/uL 4.0-11.0 [facility] Lymphocytes Auto (Bld) [#/Vo l]on 09-28-2023 Lymphocytes (Bld) [#/Vol] 2.8 10 3/uL 1.2-3.8 [facility] Lymphocytes/100 WBC Auto (Bl d)on 09-28-2023 Lymphocytes/100 WBC (Bld) 39.0 % 20.5-60.0 [facility] MCH Auto (RBC) [Entitic mass ]on 09-28-2023 MCH (RBC) [Entitic mass] 30.6 pg 26.7-34.0 [facility] MCHC Auto (RBC) [Mass/Vol]on 09-28-2023 MCHC (RBC) [Mass/Vol] 32.4 g/dL 29.9-35.2 [facility] MCV Auto (RBC) [Entitic vol] on 09-28-2023 MCV (RBC) [Entitic vol] 94.5 fL 81.0-99.0 [facility] Monocytes Auto (Bld) [#/Vol] on 09-28-2023 Monocytes (Bld) [#/Vol] 0.5 10 3/uL 0.3-0.8 [facility] Monocytes/100 WBC Auto (Bld) on 09-28-2023 Monocytes/100 WBC (Bld) 7.3 % 1.7-12.0 [facility] Neutrophils Auto (Bld) [#/Vo l]on 09-28-2023 Neutrophils (Bld) [#/Vol] 3.5 10 3/uL 1.4-6.5 [facility] Neutrophils/100 WBC Auto (Bl d)on 09-28-2023 Neutrophils/100 WBC (Bld) 49.4 % 43.0-75.0 [facility] No Panel Informationon 09-27 Dehydroepiandrosterone (DHEA) 330 ng/dL 31-701 [facility] Comment on above: This test was develo ped and its performance characteristicsdetermined by [employer]. It has not been cleared orapproved by the Food and Drug Administration.Performed at: [facility] [id number] Director: Ragini Enriquez MD, Phone: [phone] Dehydroepiandrosterone Sulfate 98.1 ug/dL 57.3-279.2 [facility] Eosinophils # (Auto) 0.2 10 3/uL 0.0-0.7 [facility] Follicle Stimulating Hormone 32.8 mIU/mL . [facility] Comment on above: Adult Female Range F ollicular phase 3.5 - 12.5 Ovulation phase 4.7 - 21.5 Luteal phase 1.7 - 7.7 Postmenopausal 25.8 - 134.8Performed at: [facility] [employer] [id number] Director: Julius Meza PhD, Phone: [phone] Human Chorionic Gonadotropin, Quant <1 mIU/mL [facility] Comment on above: 5-50 0.2-1 SVAL66-63 0 1-2 AKCLH637-7,000 2-3 DSPVS618-35,000 3-4 WEEKS1,000-50,000 4-5 WEEKS10,000-100,000 5-6 WEEKS15,000-200,000 6-8 WEEKS10,000-100,000 2-3 MONTHS Immature Granulocyte # (Auto) 0.01 10 3/uL 0.00-0.03 [facility] Platelet mean volume Auto (B ld) [Entitic vol]on 09-28-2023 Platelet mean volume (Bld) [Entitic vol] 10.0 fL 9.5-13.5 [facility] Platelets Auto (Bld) [#/Vol] on 09-28-2023 Platelets (Bld) [#/Vol] 286 10 3/uL 150-450 [facility] RBC Auto (Bld) [#/Vol]on RBC (Bld) [#/Vol] 4.35 10 6/uL 4.20-5.40 [facility] Serum or plasma lutropin geoff surement (units/volume)on 09-28-2023 Lutropin Qn 19.0 m[IU]/mL . [facility] Comment on above: Adult Female Range F [...] VERY IMPORTANT TO YOUR HEALTH. THE CURRENT [employer] [...] 30 to 65on 11-04-2022 . . Normal [facility] Comment on above: Result Comment: Perf ormed at: WB Performed By: #### [id number] #### [facility] [address] [address] [address] Kleber Deleon Age Gdln ACOG Testing 30-65 Normal [facility] Comment on above: Performed By: #### [id number] #### [facility] [address] [address] [address] Kleber Deleon DIAGNOSIS: Comment Normal [facility] Comment on above: Result Comment: NEGA TIVE FOR INTRAEPITHELIAL LESION OR MALIGNANCY. Performed at: WB Performed By: #### [id number] #### [facility] [address] [address] [address] Kleber Deleon HPV Aptima Negative Normal Negative [facility] Comment on above: Result Comment: This nucleic acid amplification test detects fourteen high-risk HPV types (16,18,31,33,35,39,45,51,52,56,58,59,66,68) without differentiation. Performed at: =G Performed By: #### [id number] #### [facility] [address] [address] [address] Kleber Deleon HPV Genotype Reflex Comment Normal [facility] Comment on above: Result Comment: Crit eria not met, HPV Genotype not performed. Performed at: WB Performed By: #### [id number] #### [facility] [address] [address] [address] Kleber Deleon Methodology: Comment Normal [facility] Comment on above: Result Comment: This liquid based ThinPrep(R) pap test was screened with the use of an image guided system. Performed at: WB Performed By: #### [id number] #### [facility] [address] [place] [address] Dr. Kleber Deleon Note: Comment [facility] Comment on above: Result Comment: The Pap smear is a screening test designed to aid in the detection of premalignant and malignant conditions of the uterine cervix. It is not a diagnostic procedure and should not be used as the sole means of detecting cervical cancer. Both false-positive and false-negative reports do occur. . Performed at: WB Performed By: #### [id number] #### [facility] [address] [place] [address] Dr. Kleber Deleon Performed by: Comment Normal [facility] [facility] Comment on above: Result Comment: Alyssa Henderson, Boiler/Chiller Operator (ASCP) Performed at: [facility] Performed By: #### [id number] #### [facility] [address] [place] [address] Dr. Kleber Deleon Specimen adequacy: Comment Normal [facility] Comment on above: Result Comment: Sati sfactory for evaluation. Endocervical and/or squamous metaplastic cells (endocervical component) are present. Performed at: [facility] Performed By: #### [id number] #### [facility] [address] [place] [address] Dr. Kleber Deleon XR FACIAL MIN 3 VIEWSon 03-29 XR FACIAL MIN 3 VIEWS EXAM: XR FACIAL KS N 3 VIEWS HISTORY: Falls ; fell downstairs, facial pain COMPARISON: None. TECHNIQUE: FINDINGS: No visible fracture of the facial bones. Orbital rims are intact. No fluid levels within the paranasal sinuses. IMPRESSION: 1. No acute bone abnormality. Electronically authenticated by: EVERARDO PORTER Date: 2022-04-20 07:52 Normal [facility] Cult,Genitalon 10-16-2018 Cult,Genital Specimen Description .VAGINA Special Requests NOT REPORTED Culture NORMAL URO-GENITAL DAVI STREPTOCOCCI, BETA HEMOLYTIC GROUP B ISOLATED. NEGATIVE FOR NEISSERIA GONORRHOEAE Report Status FINAL 10/16/2018 Normal [facility] Comment on above: Performed By: #### G EC #### [facility] [address] [place] [address] [id number] Unit Technician: Bob Whitehead MD [facility] [address] [address] Unit Technician: Jorge Luis Nina MD Cytologyon 01-27-2018 Cytology (NOTE) [id number] [facility] ANATOMIC PATHOLOGY [address] [place] [phone] GYNECOLOGIC CYTOLOGY REPORT Patient Name: LAM MOORE MR#: [id number] Specimen #[id number] Source: 1: Cervical material, (ThinPrep vial, Imaging-assisted review) Clinical History Z01.419 Routine curb setter helper exam without abnormal findings High Risk HPV DNA testing is requested if the diagnosis is ASC-US History of: Cervical lesion destruction LMP: 12/30/17 INTERPRETATION Cervical material, (ThinPrep vial, Imaging-assisted review): Specimen Adequacy: Satisfactory for evaluation. - Endocervical/transformatio n zone component present. Descriptive Diagnosis: Negative for intraepithelial lesion or malignancy. Boiler/Chiller Operator: JEOVANY Gerber(ASCP) Electronically Signed Out /02/16/2018 Normal [facility] Comment on above: Performed By: #### P PPVP #### [address] [id number] Vital Signs Date Time Vital Sign Value Performing Clinician Facility 01-17-2024 15:18040 Body height 175.26 cm [facility] 01-17-2024 15:180400 Body mass index (BMI) [Ratio] 25.7 kg/m2 [facility] 01-17-2024 15:18040 Body weight 78.92 kg [facility] 01-17-2024 15:18-0400 Diastolic blood pressure 81 mm[Hg] [facility] 01-17-2024 15:18-0400 Heart rate 78 /min [facility] 01-17-2024 15:18-0400 Systolic blood pressure 127 mm[Hg] [facility] 10-26-2023 11:04-0400 Body height 175.26 cm MD Ngoc Martinez Work Phone: [facility] 10-26-2023 11:04-0400 Body mass index (BMI) [Ratio] 25.8 kg/m2 MD Ngoc Martinez Work Phone: [facility] 10-26-2023 11:04-0400 Body weight 79.43 kg MD Ngoc Martinez Work Phone: [facility] 10-26-2023 11:04-0400 Diastolic blood pressure 86 mm[Hg] MD Ngoc Martinez Work Phone: [facility] 10-26-2023 11:04-0400 Heart rate 73 /min MD Ngoc Martinez Work Phone: [facility] 10-26-2023 11:04-0400 Systolic blood pressure 121 mm[Hg] MD Ngoc Martinez Work Phone: [facility] 09-28-2023 13:33-0400 Body height 175.26 cm [facility] 09-28-2023 13:33-0400 Body mass index (BMI) [Ratio] 24.8 kg/m2 [facility] 09-28-2023 13:33-0400 Body weight 76.43 kg [facility] 09-28-2023 13:33-0400 Diastolic blood pressure 91 mm[Hg] [facility] 09-28-2023 13:33-0400 Heart rate 64 /min [facility] 09-28-2023 13:33-0400 Systolic blood pressure 128 mm[Hg] [facility] 06-11-2023 10:15-0500 Body height 175.26 cm Ngoc Martinez Other [facility] [employer] Other 06-11-2023 10:15-0500 Body mass index (BMI) [Ratio] 25.99 kg/m2 Ngoc Martinez Other [facility] Other 06-11-2023 10:15-0500 Body weight 79.83 kg Ngoc Martinez Other [facility] Other 06-11-2023 10:15-0500 Diastolic blood pressure 76 mm[Hg] Ngoc Martinez Other [facility] Other 06-11-2023 10:15-0500 Systolic blood pressure 125 mm[Hg] Ngoc Martinez Other [facility] Other 03-11-2023 11:15-0400 Body height 175.26 cm Ngoc Martinez Other [facility] Other 03-11-2023 11:15-0400 Body mass index (BMI) [Ratio] 26.73 kg/m2 Ngoc Martinez Other [facility] Other 03-11-2023 11:15-0400 Body weight 82.1 kg Ngoc Martinez Other [facility] Other 03-11-2023 11:15-0400 Diastolic blood pressure 74 mm[Hg] Ngoc Martinez Other [facility] Other 03-11-2023 11:15-0400 Respiratory rate 20 /min Ngoc Martinez Other [facility] Other 03-11-2023 11:15-0400 Systolic blood pressure 118 mm[Hg] Ngoc Martinez Other [facility] Other 12-02-2022 09:00-0400 Body height 175.26 cm Ngoc Martinez Other [facility] Other 12-02-2022 09:00-0400 Body mass index (BMI) [Ratio] 26.73 kg/m2 Ngoc Martinez Other [facility] Other 12-02-2022 09:00-0400 Body weight 82.1 kg Ngoc Martinez Other [facility] Other 12-02-2022 09:00-0400 Diastolic blood pressure 72 mm[Hg] Ngoc Martinez Other [facility] Other 12-02-2022 09:00-0400 Systolic blood pressure 112 mm[Hg] Ngoc Martinez Other [facility] Other 09-02-2022 08:45-0500 Body height 175.26 cm Ngoc Martinez Other [facility] Other 09-02-2022 08:45-0500 Body mass index (BMI) [Ratio] 27.61 kg/m2 Ngoc Martinez Other [facility] Other 09-02-2022 08:45-0500 Body weight 84.82 kg Ngoc Martinez Other [facility] Other 09-02-2022 08:45-0500 Diastolic blood pressure 84 mm[Hg] Ngoc Martinez Other [facility] Other 09-02-2022 08:45-0500 SaO2% (BldA) [Mass fraction] 99 % Ngoc Martinez Other [facility] Other 09-02-2022 08:45-0500 Systolic blood pressure 142 mm[Hg] Ngoc Martinez Other [facility] Other Encounters Encounter Date Encounter Type Care Provider Facility Start: 01-17-2024 End: 01-17-2024 [facility] Work Phone: Start: 01-17-2024 End: 01-17-2024 Patient encounter procedure [facility] Work Phone: Start: 01-12-2024 End: 01-12-2024 ambulatory KATIE LUISA Not Available Start: 11-12-2023 Non-patient / Non-visit [facility] Work Phone: Start: 11-11-2023 ambulatory NGOC MARTINEZ [facility] Start: 11-02-2023 Non-patient / Non-visit [facility] Work Phone: Start: 11-02-2023 End: 11-02-2023 ambulatory KATIE LUISA Not Available Start: 10-26-2023 End: 10-26-2023 ambulatory MD Ngoc Martinez Work Phone: [facility] Work Phone: Start: 10-26-2023 End: 10-26-2023 Patient encounter procedure MD Ngoc Martinez Work Phone: [facility] Work Phone: Start: 10-13-2023 End: 10-13-2023 ambulatory Ngoc Martinez Facility:[facility] Start: 10-13-2023 End: 10-13-2023 ambulatory MD Ngoc Martinez Work Phone: [facility] Work Phone: Start: 10-13-2023 End: 10-13-2023 Departed Referred MD Ngoc Martinez Work Phone: [facility] Start: 10-13-2023 End: 10-13-2023 ambulatory KATIE LUISA Not Available Start: 09-28-2023 End: 09-28-2023 ambulatory [facility] Work Phone: Start: 09-28-2023 End: 09-28-2023 Patient encounter procedure [facility] Work Phone: Start: 09-21-2023 End: 09-21-2023 ambulatory KATIE LUISA Not Available Start: 08-26-2023 Non-patient / Non-visit [facility] Work Phone: Start: 08-26-2023 Non-patient / Non-visit [facility] Work Phone: Start: 08-02-2023 End: 08-02-2023 ambulatory KATIE LUISA Not Available Start: 07-29-2023 End: 07-29-2023 ambulatory Ngoc Michelle Other [facility] Other Start: 07-29-2023 Telephone encounter Ngoc Martinez [facility] Start: 07-26-2023 End: 07-26-2023 ambulatory NGOC MARTINEZ Facility:[facility] Start: 07-05-2023 Patient encounter procedure [facility] Start: 07-02-2023 End: 07-02-2023 ambulatory Ngoc Martinez Other [facility] Other Start: 07-02-2023 Office outpatient vi sit 15 minutes Ngoc Martinez [facility] Start: 07-01-2023 End: 07-01-2023 ambulatory Ngoc Martinez Other [facility] Other Start: 07-01-2023 Telephone encounter Ngoc Michelle [facility] Start: 06-11-2023 End: 06-11-2023 ambulatory Ngoc Martinez Other [facility] Other Start: 06-11-2023 Office outpatient vi sit 15 minutes Ngoc Martinez [facility] Start: 06-03-2023 End: 06-03-2023 ambulatory Ngoc Martinez Other [facility] Other Start: 06-03-2023 Telephone encounter Ngoc Martinez [facility] Start: 06-02-2023 End: 06-02-2023 ambulatory Ngoc Martinez Other [facility] Other Start: 06-02-2023 Telephone encounter Ngoc Martinez [facility] Start: 05-27-2023 End: 05-27-2023 ambulatory Ngoc Martinez Other [facility] Other Start: 05-27-2023 Telephone encounter Ngoc Martinez [facility] Start: 05-06-2023 End: 05-06-2023 ambulatory Ngoc Martinez Other [facility] Other Start: 05-06-2023 Telephone encounter Ngoc Martinez [facility] Start: 04-14-2023 End: 04-14-2023 ambulatory Ngoc Martinez Other [facility] Other Start: 04-14-2023 Telephone encounter Ngoc Martinez [facility] Start: 04-08-2023 End: 04-08-2023 ambulatory Ngoc Martinez Other [facility] Other Start: 04-08-2023 Telephone encounter Ngoc Martinez [facility] Start: 04-01-2023 End: 04-01-2023 ambulatory Ngoc Martinez Other [facility] Other Start: 04-01-2023 Telephone encounter Ngoc Martinez [facility] Start: 03-11-2023 End: 03-11-2023 ambulatory Ngoc Martinez Other [facility] Other Start: 03-11-2023 Office outpatient vi sit 15 minutes Ngoc Michelle [facility] Start: 02-11-2023 End: 02-11-2023 ambulatory Ngoc Martinez Other [facility] Other Start: 02-11-2023 Telephone encounter Ngoc Martinez [facility] Start: 01-14-2023 End: 01-14-2023 ambulatory Ngoc Michelle Other [facility] Other Start: 01-14-2023 Telephone encounter Ngoc Martinez [facility] Start: 12-17-2022 End: 12-17-2022 ambulatory Ngoc Martinez Other [facility] Other Start: 12-17-2022 Telephone encounter Ngoc Martinez [facility] Start: 12-02-2022 End: 12-02-2022 ambulatory Ngoc Martinez Other [facility] Other Start: 12-02-2022 Office outpatient vi sit 15 minutes Ngoc Martinez [facility] Start: 11-20-2022 End: 11-20-2022 ambulatory Ngoc Martinez Other [facility] Other Start: 11-20-2022 Telephone encounter Ngoc Martinez [facility] Start: 10-27-2022 End: 10-27-[address] KATIE VALADEZ . Facility: Start: 10-22-2022 End: 10-22-2022 ambulatory Ngoc Martinez Other [facility] Other Start: 10-22-2022 Telephone encounter Ngoc Martinez [facility] Start: 09-24-2022 End: 09-24-2022 ambulatory Ngoc Martinez Other [facility] Other Start: 09-24-2022 Telephone encounter Ngoc Martinez [facility] Start: 09-02-2022 End: 09-02-2022 ambulatory Ngoc Martinez Other [facility] Other Start: 09-02-2022 Office outpatient vi sit 15 minutes Ngoc Martinez [facility] Start: 08-28-2022 End: 08-28-2022 ambulatory Ngoc Martinez Other [facility] Other Start: 08-28-2022 Telephone encounter Ngoc Martinez [facility] Start: 04-30-2022 Gynecological examination normal Ngoc Martinez Other [facility] Other Start: 04-20-2022 End: 04-20-2022 ambulatory MARIO FIELD . Facility: Start: 11-10-2021 End: 11-10-2021 Pre-procedure evaluation check Ngoc Martinez Other [facility] [employer] Other Start: 10-13-2018 End: 10-14-2018 Patient encounter procedure [facility] Start: 01-27-2018 Encounter for gynecological examination (general) (routine) without abnormal findings [facility] Start: 01-27-2018 End: 01-28-2018 Patient encounter procedure [facility] Procedures Date Procedure Procedure Detail Performing Clinician Start: 10-13-2018 Cul bact xcpt urine blood/stool aerobic isol [facility] Start: 01-27-2018 Cytopathology proced ure, preparation of smear, genital source [facility] Start: 11-30-2016 Pre-surgery evaluation Ngoc Martinez Other End: 09-12-2021 Depression screening Ngoc Maritnez Other End: 12-09-2020 Diabetes mellitus screening Ngoc Martinez Other Plan of Treatment Date Care Activity Detail Author XR Lumbar spine 2 or 3 Views [facility] Payers Date Payer Category Payer Unknown [id number] 2023 Medicare [id number] 2019 Medicare [id number] 2016 Unknown [id number] 2014 Medicare [id number] 2013 Medicare [id number] 1981 Unknown [id number] 2.16.8 [id number] 1981 Unknown [id number] .16.8 [id number] 1981 Unknown [id number] 2.16.84 0.1.629379.3.579.2.593 1981 Unknown [id number] 2.16.84 0.1.325521.3.579.2.593 1981 Unknown [id number] 2.16.8 40.1.856529.3.579.2.1286 1981 Unknown [id number] 2.16.8 40.1.267146.3.579.2.1286 1981 Unknown [id number] 2.16.8 40.1.178941.3.579.2.1286 1981 Unknown [id number] 2.16.8 40.1.806042.3.579.2.1286 1981 Unknown [id number] 2.16.84 0.1.253677.3.579.2.1259 1981 Unknown [id number] 2.16.84 0.1.342899.3.579.2.1259 1981 Unknown [id number] 2.16.84 0.1.375888.3.579.2.1259 1981 Unknown [id number] 2.16.84 0.1.852361.3.579.2.1259 1981 Unknown [id number] 2.16.84 0.1.647958.3.579.2.1259 1958 Medicaid [id number] 2. [id number] 1958 Medicare [id number] 2. [id number] Social History Date Type Detail Facility Sex Assigned At [facility] Other Start: 07-05-2023 Tobacco smoking stat us LAIS Smoker (finding) [facility] Start: 1980 Sex Assigned At Female F [facility] Clinical Notes 04-20-2022 to 07-29-2023 Note Date & Type Note Facility 07-29-2023 Evaluation note Encounter Date Diagnosis Assessment Notes Jul, Left shoulder pain (ICD-10 - M25.512) [facility] [employer] Other 01-29-2024 NoteHNO ID: [id number] Author: RONNY MARTINEZ MD Service: ? Author Type: Physician Type: Progress Notes Filed: 07/26/2023 14:37 Note Text: VIRTUAL VISIT PROGRESS NOTE This is a virtual visit using [employer] Zoom Video Visit. It required patient-provider interaction for the medical decision making as documented below. I have communicated my name and active licensure. The patient's identity and physical location were verified at the time of this visit. Either the patient or their legal dental sales representative has been informed of the risks [...] monitor thyroid function/TSH. RTC TBD. Ronny Martinez [facility]01-05-2024 Evaluation note* Encounter Date Diagnosis Assessment Notes [...] than 5 days since start of symptoms [facility] Other 01-04-2024 Evaluation note* Encounter Date Diagnosis Assessment Notes Treatment Notes Treatment Clinical Notes Jun, Left shoulder pain (ICD-10 - M25.512) [facility] Other 12-15-2023 Evaluation note* Encounter Date Diagnosis Assessment Notes Treatment Notes Treatment Clinical Notes May, Acquired hypothyroidism (ICD-10 - E03.9) Pt advised referral was sent on 05/27. She is welcome to make her own appt a [facility] as well. Will check labs in meantime. May, Fatigue, unspecified type (ICD-10 - R53.83) Pt agrees to labs. May, Left shoulder pain (ICD-10 - M25.512) Lam agrees to decrease dose to 5/325 w next fill in June. Reviewed OARRS. [facility] Other 12-07-2023 Evaluation note* Encounter Date Diagnosis Assessment Notes Treatment Notes Treatment Clinical Notes May, Left shoulder pain (ICD-10 - M25.512) [facility] Other 11-30-2023 Evaluation note* Encounter Date Diagnosis Assessment Notes Treatment Notes Treatment Clinical Notes Apr, Acquired hypothyroidism (ICD-10 - E03.9) [facility] Other 11-09-2023 Evaluation note* Encounter Date Diagnosis Assessment Notes Treatment Notes Treatment Clinical Notes Apr, Left shoulder pain (ICD-10 - M25.512) [facility] Other 10-12-2023 Evaluation note* Encounter Date Diagnosis Assessment Notes Treatment Notes Treatment Clinical Notes Mar, Left shoulder pain (ICD-10 - M25.512) Mar, Acquired hypothyroidism (ICD-10 - E03.9) [facility] Other 10-05-2023 Evaluation note* Encounter Date Diagnosis Assessment Notes Treatment Notes Treatment Clinical Notes Mar, Left shoulder pain (ICD-10 - M25.512) [facility] Other 09-14-2023 Evaluation note* Encounter Date Diagnosis [...] of breath. . Increase fluids and rest. [id number] antipyretics as needed. Warning signs and symptoms reviewed with patient today. Patient to go immediately to the ER should she experience any of these. Patient to notify office should her symptoms persist and not improve. Patient verbalizes understanding and agrees to treatment plan. Feb, Left shoulder pain (ICD-10 - M25.512) Chronic problem, take med as prescribed. Reviewed OARRS report. Followup in 3 months. [facility] Other 08-17-2023 Evaluation note* Encounter Date Diagnosis Assessment Notes Treatment Notes Treatment Clinical Notes Jan, Acute thoracic back pain, unspecified back pain laterality (ICD-10 - M54.6) [facility] Other 07-20-2023 Evaluation note* Encounter Date Diagnosis Assessment Notes Treatment Notes Treatment Clinical Notes Dec, Acute thoracic back pain, unspecified back pain laterality (ICD-10 - M54.6) [facility] Other 06-22-2023 Evaluation note* Encounter Date Diagnosis Assessment Notes Treatment Notes Treatment Clinical Notes Nov, Acute thoracic back pain, unspecified back pain laterality (ICD-10 - M54.6) [facility] Other 06-07-2023 Evaluation note* Encounter Date Diagnosis Assessment Notes Treatment Notes Treatment Clinical Notes Nov, Moderate persistent asthma without complication (ICD-10 - J45.40) Nov, Vomiting with nausea, not intractable (ICD-10 - R11.2) Nov, Neck pain (ICD-10 - M54.2) OARRS report processed and reviewed and shows no violations. Pt understands to use only as needed and consider dose reduction at next OV. [facility] Other 06-07-2023 Evaluation note* Encounter Date Diagnosis [...] and consider dose reduction at next OV. [facility] Other 04-27-2023 Evaluation note* Encounter Date Diagnosis Assessment Notes Treatment Notes Treatment Clinical Notes Sep, Acute thoracic back pain, unspecified back pain laterality (ICD-10 - M54.6) [facility] Other 03-08-2023 Evaluation note* Encounter Date Diagnosis [...] Will continue to decrease with next rx. [facility] Other 03-08-2023 Evaluation note* Encounter Date Diagnosis [...] as listed above for the breast area. [facility] Other 10-24-2022 NotePROCEDURE: XR FOREARM RT 2V HISTORY: Falls ; fell down stairs, right forearm pain COMPARISON: None. FINDINGS: BONES:Transverse fracture through mid ulnar diaphysis without displacement. Unremarkable radius. SOFT TISSUES:No visible soft tissue swelling. EFFUSION:None visible. OTHER: Negative. IMPRESSION: 1. Acute, nondisplaced mid ulnar diaphyseal fracture. Electronically authenticated by: EVERARDO PORTER Date: 2022-04-20 07:54[facility] noteNo InformationNortJames E. Van [facility] [employer] Other Evaluation note* Diagnosis Onset Date Resolution Status Thoracic back pain acute [facility] Work Phone: Evaluation note* Diagnosis Onset Date Resolution Status Thoracic back pain acute Acute lumbar back pain acute Thoracic back pain [facility] Work Phone: Evaluation note* Diagnosis Onset Date Resolution Status Acute lumbar back pain acute Thoracic back pain [facility] Work Phone: History general Narrative - Reported* Type Description Date Medical History Asthma Medical History Depression Medical History GERD Medical History Fibromyalgia Medical History Anxiety Surgical History Left wrist fracture repair 2013 Surgical History Gall Bladder 2001 Surgical History Skin Graft Hospitalization History See Hospitalization History 1 Jun [facility] [employer] Other Summary Purpose Family History Relationship Condition Age at Onset Recorded Date/T juju family member Unknown Not Specified Family history of mental disorder Unknow n Relationship Condition Age at Onset Recorded Date/T juju family member Unknown mother Family history of mental disorder Unknown Advance Directives Advance Directive Response Recorded Date/ Time Advance Directives No September 27 9:03am Reason for Referral Reason *FU 06/04 Recent l abs normal in March on present dose, would like to have second opinion due to fatigue. Diagnosis 1 Acquired hypothyroid ism (E03.9) Referral Organization [facility] fried Referring Provider First Name Ngoc Referring Provider Last Name Michelle Referring Provider Specialty Family [facility] cine Referred Organization [facility] [place] [address] [place] [place],[address] Referred Provider Specialty Endocrinolog y Referral Priority [...] Acute lumbar back pain Thoracic back pain Chief Complaint back pain Fibromyalgia flare up Reason for Visit Acute lumbar back pa in Thoracic back pain Additional Source Comments INFORMATION SOURCE (unrecogn ized section and content) DATE CREATED AUTHOR 10/16/2018 [facility] DATE CREATED AUTHOR AUTHOR'S ORGANIZ ATION 11/05/2022 [facility] DATE CREATED AUTHOR AUTHOR'S ORGANIZ ATION 07/27/2023 [facility] DATE CREATED AUTHOR AUTHOR'S ORGANIZ ATION 10/19/2023 [facility] DATE CREATED AUTHOR AUTHOR'S ORGANIZ ATION 11/13/2023 [facility] DATE CREATED AUTHOR AUTHOR'S ORGANIZ ATION 01/16/2024 [facility] EPIC REASON FOR VISIT (unrecogniz ed section and content) Prescriptions3 month Follow uprefill3 month Follow uprefillNo Information3 month Follow uprefill3 month Follow uprefillRefill3 month Follow upRefillsmessagethyroid labsrefillreferralNo InformationrefillMed Check UpRefillCOVID Positive- [phone] Care Teams (unrecognized sec tion and content) Team Status: Active Member Role Status Dates Ngoc Martinez MD Primary Care Provider Active Team Status: Inactive Member Role Status Dates Ngoc Martinez MD Primary Care Provide r, Attending Provider Active Start: October 26, 2023 End: October 26, 2023 Team Status: Active Member Role Status Dates Ngoc Martinez MD Primary Care Provider Active Start: November 02, 2023 Katie Valadez DO Attending Provider Active Start : November 02, 2023 Team Status: Active Member Role Status Dates Ngoc Martinez MD Primary Care Provider Active Start: November 12, 2023 Katie Valadez DO Attending Provider Active Start : November 12, 2023 Team Status: Inactive Member Role Status Dates Ngoc Martinez MD Primary Care Provide r, Attending Provider Active Start: January 17, 2024 End: January 17, 2024 Team Status: Active Member Role Status Dates [...] October 26, 2023 End: October 26, 2023 Team Status: Active Member Role Status Dates Ngoc Martinez MD Primary Care Provider Active Start: November 02, 2023 Katie Valadez DO Attending Provider Active Start : November 02, 2023 Team Status: Active Member Role Status Wilver Martinez MD Primary Care Provider Active Start: November 12, 2023 Katie Valadez DO Attending Provider Active Start : November 12, 2023 Team Status: Inactive Member Role Status Wilver Martinez MD Primary Care Provide r, Attending Provider Active Start: January 17, 2024 End: January 17, 2024 Goals (unrecognized section and content) Goals may [...] BE BASED ON THE PRIMARY CLINICAL RECORDS. [facility] [employer] provides no warranty or guarantee of the accuracy or completeness of information in this document.
--- NOTE | 2024-04-14 10:26 | XR_ITS ---
The [address] [address] Patient Name: LAM TORRES MRN: [id number] date: 1980 Sex: F Assigned Patient Location: SURGOUT Current Patient Location: Accession/Order Number: [id number] Exam Date: 04/14/2024 10:30 Report Date: 04/17/2024 13:53 At the request of: KATIE MORAN Procedure: XR chest 2V EXAMINATION: XR chest 2V HISTORY: Preop exam COMPARISON: No relevant comparison available. TECHNIQUE: PA and lateral FINDINGS: LUNGS: No significant pulmonary parenchymal abnormalities. Surgical anchors right humeral head VASCULATURE: No increased pulmonary vasculature. PLEURA: No pneumothorax, effusion, or pleural thickening. CARDIAC: No cardiomegaly or cardiac silhouette abnormality. MEDIASTINUM: No visible mass or adenopathy. BONES: No fracture or visible bone lesion. OTHER: Negative. XR/XR chest 2V IMPRESSION: No acute cardiopulmonary process Electronically authenticated by: OBED LOUISE Date: 04/17/2024 13:53
[2024-04-14 11:08] LABS: Basophils Percent Auto 0.6 % (0.2-2.0); Eosinophils Absolute Auto 0.2 10^3/uL (0.0-0.7); Eosinophils Percent Auto 3.1 % (0.9-7.0); Hematocrit 39.6 % (36.0-48.0); Lymphocytes Absolute Auto 2.2 10^3/uL (1.2-3.8); Lymphocytes Percent Auto 30.4 % (20.5-60.0); Mean Corpuscular HGB Conc 32.8 g/dL (29.9-35.2); Mean Corpuscular Hemoglobin 31.1 pg (26.7-34.0); Mean Corpuscular Volume 94.7 fL (81.0-99.0); Mean Platelet Volume 10.5 fL (9.5-13.5); Monocytes Absolute Auto 0.7 10^3/uL (0.3-0.8); Monocytes Percent Auto 9.3 % (1.7-12.0); Neutrophils Absolute Auto 4.1 10^3/uL (1.4-6.5); Neutrophils Percent Auto 56.6 % (43.0-75.0); Platelet Count 227 10^3/uL (150-450); Red Blood Count 4.18 10^6/uL (4.20-5.40); Red Cell Distribution Width 13.1 % (11.0-15.0); White Blood Count 7.2 10^3/uL (4.0-11.0)
[2024-04-14 11:15] LABS: Alanine Aminotransferase 11 U/L (14-59); Albumin Level 3.1 g/dL (3.4-5.0); Alkaline Phosphatase 42 U/L (46-116); Anion Gap 12.4; Aspartate Amino Transferase 10 U/L (15-37); BUN Creatinine Ratio 9.9; Bilirubin Direct 0.1 mg/dL (0.0-0.2); Bilirubin Total 0.3 mg/dL (0.2-1.0); Calcium 8.9 mg/dL (8.5-10.1); Carbon Dioxide 25.8 mmol/L (21.0-32.0); Chloride 108 mmol/L (98-107); Estimated GFR (African America >60 (>=60 mL/min/1.73m^2); Estimated GFR (Non-African Ame >60 (>=60 mL/min/1.73m^2); Globulin 3.1 g/dL; Glucose 97 mg/dL (74-106); Potassium 4.2 mmol/L (3.5-5.1); Sodium 142 mmol/L (136-145); Total Protein 6.2 g/dL (6.4-8.2)
[2024-04-14 11:16] LABS: INR 1.03; Partial Thromboplastin Time 28.5 sec (22.3-36.2); Prothrombin Time 10.9 sec (9.0-11.6)
== END 2024-04-14 09:53 | disposition home or self-care (01) ==
LOC: PST 09:55
PROVIDERS: PCP Family Medicine; Visit Provider Obstetrics & Gynecology
DX: Z01.810 Encounter for preprocedural cardiovascular examination (principal); Z01.812 Encounter for preprocedural laboratory examination; N92.0 Excessive and frequent menstruation with regular cycle; R10.2 Pelvic and perineal pain; N94.6 Dysmenorrhea, unspecified; N94.10 Unspecified dyspareunia
CPT/HCPCS: 71046; 80048; 80076; 85025; 85610; 85730; 86850; 86900; 86901

== ENCOUNTER 2024-05-11 10:20 | Outpatient (OUT) | payer OTHER, MEDICAID, SELFPAY ==
[2024-05-11 11:04] LABS: Basophils Percent Auto 0.5 % (0.2-2.0); Eosinophils Absolute Auto 0.1 10^3/uL (0.0-0.7); Eosinophils Percent Auto 2.5 % (0.9-7.0); Hematocrit 41.7 % (36.0-48.0); Immature Granulocytes Abs Auto 0.01 10^3/uL (0.00-0.03); Immature Granulocytes Pct Auto 0.2 % (0.0-0.5); Lymphocytes Absolute Auto 1.3 10^3/uL (1.2-3.8); Mean Corpuscular HGB Conc 33.6 g/dL (29.9-35.2); Mean Corpuscular Hemoglobin 31.7 pg (26.7-34.0); Mean Corpuscular Volume 94.3 fL (81.0-99.0); Mean Platelet Volume 10.1 fL (9.5-13.5); Monocytes Absolute Auto 0.5 10^3/uL (0.3-0.8); Monocytes Percent Auto 9.3 % (1.7-12.0); Neutrophils Absolute Auto 3.6 10^3/uL (1.4-6.5); Neutrophils Percent Auto 64.5 % (43.0-75.0); Platelet Count 259 10^3/uL (150-450); Red Blood Count 4.42 10^6/uL (4.20-5.40); Red Cell Distribution Width 13.1 % (11.0-15.0); White Blood Count 5.6 10^3/uL (4.0-11.0)
--- NOTE | 2024-05-11 11:10 | PM.PRESUREVA ---
History of Present Illness History of Present Illness Chief complaint: abnormal uterine bleeding Narrative: Patient presents for presurgical testing. The patient reports heavy painful periods for quite some time. She was scheduled for a hysterectomy on April 20, but the morning of surgery she developed gastroenteritis type symptoms with nausea, vomiting, and diarrhea. She states she is now feeling better. She is a heavy smoker and has a chronic cough and does use inhalers, but has had no change in her cough, no shortness of breath, and no fever. Review of Systems ROS Narrative REVIEW OF SYSTEMS: Negative except as stated in HPI, ten or more systems reviewed. Constitutional: No fever, chills, weakness ENT: No sore throat or epistaxis Cardiovascular: No edema, chest pain, palpitations, or activity intolerance Musculoskeletal: No joint pain or swelling Gastrointestinal: No abdominal pain, constipation, diarrhea, or vomiting Genitourinary: No dysuria or hematuria Neurological: No numbness, tingling, weakness, or acute headache Psychiatric: No mood changes [facility] Medical History (Updated 05/11/24 @ 11:13 by Lucy Lomas NP) Dysmenorrhea ?N94.6 - Dysmenorrhea, unspecified (ICD-10) Dyspareunia Gastroenteritis (04/20/24) ?K52.9 - Noninfective gastroenteritis and colitis, unspecified (ICD-10) Breast lump ?N63.0 - Unspecified lump in unspecified breast (ICD-10) Hernia ?K46.9 - Unspecified abdominal hernia without obstruction or gangrene (ICD-10) Opioid dependence ?F11.20 - Opioid dependence, uncomplicated (ICD-10) Olfaction disorder ?R43.9 - Unspecified disturbances of smell and taste (ICD-10) Chronic cough ?R05.3 - Chronic cough (ICD-10) Acne ?L70.9 - Acne, unspecified (ICD-10) Shoulder pain ?M25.519 - Pain in unspecified shoulder (ICD-10) Neck pain ?M54.2 - Cervicalgia (ICD-10) Seasonal allergies ?J30.2 - Other seasonal allergic rhinitis (ICD-10) Fibromyalgia ?M79.7 - Fibromyalgia (ICD-10) Back pain ?M54.9 - Dorsalgia, unspecified (ICD-10) Insomnia ?G47.00 - Insomnia, unspecified (ICD-10) Agoraphobia ?F40.00 - Agoraphobia, unspecified (ICD-10) PTSD (post-traumatic stress disorder) ?F43.10 - Post-traumatic stress disorder, unspecified (ICD-10) OCD (obsessive compulsive disorder) ?F42.9 - Obsessive-compulsive disorder, unspecified (ICD-10) Panic attacks ?F41.0 - Panic disorder [episodic paroxysmal anxiety] (ICD-10) Depression ?F32.A - Depression, unspecified (ICD-10) Anxiety ?F41.9 - Anxiety disorder, unspecified (ICD-10) COVID-19 (07/29/23) ?U07.1 - COVID-19 (ICD-10) Asthma ?J45.909 - Unspecified asthma, uncomplicated (ICD-10) Migraine ?G43.909 - Migraine, unspecified, not intractable, without status migrainosus (ICD-10) Menorrhagia ?N92.0 - Excessive and frequent menstruation with regular cycle (ICD-10) Pelvic pain ?R10.2 - Pelvic and perineal pain (ICD-10) Abnormal uterine bleeding ?N93.9 - Abnormal uterine and vaginal bleeding, unspecified (ICD-10) IBS (irritable bowel syndrome) ?K58.9 - Irritable bowel syndrome without diarrhea (ICD-10) Heart murmur ?R01.1 - Cardiac murmur, unspecified (ICD-10) Hypothyroidism ?E03.9 - Hypothyroidism, unspecified (ICD-10) Surgical History (Updated 04/10/24 @ 10:48 by Lucy Lomas NP) H/O dilation and curettage (11/12/23) ?Z98.890 - Other specified postprocedural states (ICD-10) H/O skin graft ?Z94.5 - Skin transplant status (ICD-10) H/O wrist surgery ?Z98.890 - Other specified postprocedural states (ICD-10) History of arthroscopy of shoulder ?Z98.890 - Other specified postprocedural states (ICD-10) History of repair of rotator cuff ?Z98.890 - Other specified postprocedural states (ICD-10) H/O LEEP ?Z98.890 - Other specified postprocedural states (ICD-10) H/O eye surgery ?Z98.890 - Other specified postprocedural states (ICD-10) H/O removal of cyst ?Z98.890 - Other specified postprocedural states (ICD-10) History of tubal ligation ?Z98.51 - Tubal ligation status (ICD-10) History of cholecystectomy ?Z90.49 - Acquired absence of other specified parts of digestive tract (ICD-10) Family History (Updated 11/09/23 @ 09:52 by Lucy Lomas NP) Other Family history of Alzheimer's disease Family history of myocardial infarction Family history of stroke Family history of throat cancer Social History (Updated 04/14/24 @ 10:22 by Lucy Lomas NP) Within the past year, how often did you have a drink containing alcohol: monthly or less Smoking status: Current every day smoker Non-prescribed substance use: cannabis (any form) Previous occupational history: [employer] Highest level of school completed/degree received: some college, no degree Meds Home Medications and Allergies Home Medications ?Medication ?Instructions ?Recorded ?Confirmed ?Type albuterol sulfate 2.5 mg/3 mL 2.5 mg inhalation Q6H PRN 11/09/23 04/14/24 History (0.083 %) solution for nebulization shortness of breath or wheezing albuterol sulfate 90 mcg/actuation 2 inh inhalation Q4H PRN shortness 11/09/23 04/14/24 History aerosol inhaler of breath or wheezing budesonide-formoterol HFA 160 2 inh inhalation BID 11/09/23 04/14/24 History mcg-4.5 mcg/actuation aerosol inhaler (Symbicort) bupropion HCl 300 mg 24 hr tablet, 300 mg PO DAILY 11/09/23 04/14/24 History extended release cephalexin 500 mg capsule 500 mg PO BID acne 11/09/23 05/11/24 History fluticasone propionate 50 2 spray intranasal Q12H 11/09/23 04/14/24 History mcg/actuation nasal spray,suspension levothyroxine 75 mcg tablet 75 mcg PO DAILY 11/09/23 04/14/24 History montelukast 10 mg tablet 10 mg PO DAILY 11/09/23 04/14/24 History oxycodone-acetaminophen 5 mg-325 1 tab PO Q12H PRN pain 11/09/23 04/14/24 History mg tablet promethazine 25 mg tablet 25 mg PO Q12H PRN nausea and 11/09/23 04/14/24 History vomiting tizanidine 4 mg tablet 4 mg PO QPM 11/09/23 04/14/24 History pregabalin 200 mg capsule 200 mg PO Q12H 04/14/24 04/14/24 History rimegepant 75 mg disintegrating 75 mg PO DAILY PRN migraine 05/11/24 05/11/24 History tablet (Nurtec ODT) headache Allergies Allergy/AdvReac Type Severity Reaction Status Date / Time acetaminophen (From Fioricet) Allergy Unknown Verified 05/11/24 10:41 butalbital (From Fioricet) Allergy Unknown Verified 05/11/24 10:41 caffeine (From Fioricet) Allergy Unknown Verified 05/11/24 10:41 cyclobenzaprine Allergy Unknown Verified 05/11/24 10:41 diphenhydramine (From Allergy Irritable Verified 05/11/24 10:41 Benadryl) gabapentin Allergy Confusion Verified 05/11/24 10:41 Iodinated Contrast Media Allergy Shortness Verified 05/11/24 10:41 of breath progesterone Allergy Migraine Verified 05/11/24 10:41 sertraline Allergy Drowsy Verified 05/11/24 10:41 sumatriptan Allergy MADE HER Verified 05/11/24 10:41 FEEL LIKE HER HAED WAS ON FIRE tramadol Allergy Vomiting Verified 05/11/24 10:41 varenicline (From Chantix) Allergy Suicidal Verified 05/11/24 10:41 ideation Exam Narrative Exam Narrative: Constitutional: Awake, alert, comfortable, well-appearing, nontoxic, interactive, vital signs as charted Head: Normocephalic, atraumatic Neck: Supple, normal appearance, normal range of motion, no meningeal signs, no lymphadenopathy Respiratory: No respiratory distress, harsh cough noted, scattered rhonchi on auscultation Cardiovascular: Regular rate and rhythm, strong and regular heart tones Abdomen: Nontender, normal bowel sounds, soft, no CVA tenderness Musculoskeletal: Normal gait, no swelling or edema Skin: Scattered skin lesions on the face, only visible skin inspected Neuro: No neurological deficits, normal sensation Psychiatric: Oriented ?3, normal affect Assessment and Plan Assessment and Plan (1) Menorrhagia: (2) Pelvic pain: (3) Abnormal uterine bleeding: (4) Dyspareunia: (5) Dysmenorrhea: Plan Robot-assisted laparoscopic hysterectomy, possible BSO, possible cystoscopy, possible exploratory laparotomy scheduled with Dr. Valadez May 16, 2024.
[2024-05-11 11:19] LABS: Alanine Aminotransferase 9 U/L (14-59); Albumin Globulin Ratio 0.9; Albumin Level 3.3 g/dL (3.4-5.0); Alkaline Phosphatase 54 U/L (46-116); Anion Gap 13.3; Aspartate Amino Transferase 12 U/L (15-37); BUN Creatinine Ratio 7.3; Bilirubin Direct 0.1 mg/dL (0.0-0.2); Bilirubin Total 0.4 mg/dL (0.2-1.0); Calcium 9.4 mg/dL (8.5-10.1); Carbon Dioxide 27.4 mmol/L (21.0-32.0); Chloride 107 mmol/L (98-107); Estimated GFR (African America >60 (>=60 mL/min/1.73m^2); Estimated GFR (Non-African Ame >60 (>=60 mL/min/1.73m^2); Globulin 3.5 g/dL; Glucose 86 mg/dL (74-106); Potassium 4.7 mmol/L (3.5-5.1); Sodium 143 mmol/L (136-145); Total Protein 6.8 g/dL (6.4-8.2)
[2024-05-11 11:26] LABS: INR 1.02; Partial Thromboplastin Time 30.5 sec (22.3-36.2); Prothrombin Time 10.8 sec (9.0-11.6)
== END 2024-05-11 10:21 | disposition home or self-care (01) ==
LOC: PST 10:21
PROVIDERS: PCP Family Medicine; Visit Provider Obstetrics & Gynecology
DX: Z01.812 Encounter for preprocedural laboratory examination (principal); Z01.818 Encounter for other preprocedural examination; N92.0 Excessive and frequent menstruation with regular cycle; R10.2 Pelvic and perineal pain; N94.6 Dysmenorrhea, unspecified; N94.10 Unspecified dyspareunia
CPT/HCPCS: 80048; 80076; 85025; 85610; 85730; 86850; 86900; 86901; G0463

== ENCOUNTER 2024-05-16 08:07 | Day surgery (SDC) | payer OTHER, MEDICAID, SELFPAY ==
[2024-04-14 10:34] VITALS: BP 128/77; PULSE 74; TEMP 36.5; O2SAT 98; BMI 24.7
[2024-05-11 11:06] VITALS: BP 119/80; PULSE 85; TEMP 36.6; O2SAT 99; BMI 23.6
[2024-05-16] VITALS (21 sets, daily range): BP systolic 113–133; BP diastolic 64–97; PULSE 68–91; TEMP 36.2–36.5; O2SAT 84–100; BMI 23.4
[2024-05-16 08:16] LABS: Basophils Percent Auto 0.4 % (0.2-2.0); Eosinophils Absolute Auto 0.3 10^3/uL (0.0-0.7); Eosinophils Percent Auto 4.3 % (0.9-7.0); Hematocrit 44.1 % (36.0-48.0); Hemoglobin 14.6 g/dL (12.0-16.0); Immature Granulocytes Abs Auto 0.01 10^3/uL (0.00-0.03); Immature Granulocytes Pct Auto 0.1 % (0.0-0.5); Lymphocytes Absolute Auto 3.3 10^3/uL (1.2-3.8); Lymphocytes Percent Auto 47.4 % (20.5-60.0); Mean Corpuscular HGB Conc 33.1 g/dL (29.9-35.2); Mean Corpuscular Hemoglobin 31.4 pg (26.7-34.0); Mean Corpuscular Volume 94.8 fL (81.0-99.0); Mean Platelet Volume 10.4 fL (9.5-13.5); Monocytes Absolute Auto 0.7 10^3/uL (0.3-0.8); Monocytes Percent Auto 10.3 % (1.7-12.0); Neutrophils Absolute Auto 2.6 10^3/uL (1.4-6.5); Neutrophils Percent Auto 37.5 % (43.0-75.0); Platelet Count 266 10^3/uL (150-450); Red Blood Count 4.65 10^6/uL (4.20-5.40); Red Cell Distribution Width 13.2 % (11.0-15.0); White Blood Count 6.9 10^3/uL (4.0-11.0)
--- OUTSIDE RECORDS SUMMARY | 2024-05-16 08:29 | XMS_ITS | CCD ---
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 Name Role Phone JOSÉ SOSA Referring Unavailable NGOC MARTINEZ Primary Care Unavailable JOSÉ SOSA Referring Unavailable NGOC MARTINEZ Primary Care Unavailable Ngoc Martinez Unavailable RASHIDA Saldana, MARIO Admitting Unavailable MICHELLE, DR NGOC Lyle Primary Care Unavailable CHARLOTTE, DR EVERARDO Mart Consulting Unavailable RASHIDA ., MARIO Attending Unavailable RASHIDA ., MARIO Consulting Unavailable RORY ., DR WILSON Attending Unavailable RORY ., DR WILSON Consulting Unavailable RORY ., DR WILSON Admitting Unavailable MICHELLE, DR NGOC Lyle Primary Care Unavailable NGOC MARTINEZ Referring Unavailable RONNY MARTINEZ Attending Unavailable MD Ngoc Martinez Primary Care Provider [phone] Katie Valadez Attending Provider [phone] Ngoc Martinez Primary Care Unavailable Katie Valadez Attending Unavailable Katie Valadez Admitting Unavailable NGOC MARTINEZ Referring Unavailable NGOC MARTINEZ Primary Care Unavailable NGOC MARTINEZ Referring Unavailable NGOC MARTINEZ Primary Care Unavailable NGOC MARTINEZ Referring Unavailable NGOC MARTINEZ Primary Care Unavailable KATIE VALADEZ Referring Unavailable KATIE VALADEZ Attending Unavailable KATIE VALADEZ Attending Unavailable KATIE VALADEZ Attending Unavailable KATIE VALADEZ Attending Unavailable Ngoc Martinez MD Primary Care Provider Allergies Allergy Classification Reported Allergen(s) Allergy Type Date of Onset Reaction(s) Facility (20 sources) Acetaminophen / butalbital / Caffeine Drug Allergy Unknown [facility] Other (20 sources) cyclobenzaprine; Translations: [Flexeril] Drug Allergy 12-26-19 13 Unknown [facility] Repository (20 sources) Sertraline; Translations: [SERTRALINE] Drug Allergy 12-26-19 13 Unknown, [facility] (20 sources) SUMAtriptan; Translations: [SUMATRIPTAN] Drug Allergy 11-04-19 13 Itching [facility] (20 sources) topiramate; Translations: [TOPIRAMATE] Drug Allergy 10-22-19 21 Unknown, [facility] (20 sources) varenicline; Translations: [VARENICLINE] Drug Allergy 10-22-19 21 Unknown, [facility] (1 source) Acetaminophen / butalbital / Caffeine Drug Allergy 12-26-19 13 [facility] Repository (1 source) diphenhydrAMINE Drug Allergy 12-26-19 13 [facility] Repository (1 source) Iodine (And Iodine Containting Drugs) Drug allergy (disorder) [facility] Repository (1 source) Plasmin Drug Allergy 12-26-19 13 [facility] Repository (2 sources) Progesterone; Translations: [PROGESTERONE] Drug Allergy 07-14-19 15 [facility] Repository (1 source) Sertraline Drug Allergy 12-26-19 13 [facility] Repository (1 source) topiramate Drug Allergy 12-26-19 13 [facility] Repository (1 source) traMADol Drug Allergy 06-15-20 16 [facility] Repository (1 source) varenicline Drug Allergy [facility] Repository (13 sources) Acetaminophen / butalbital / Caffeine / Codeine Drug Allergy Unknown [facility] Other (1 source) Contrast media Propensity to adverse reactions 09-11-19 17 Unknown [facility] Other (14 sources) Iodinated contrast media (substance) Drug allergy 07-26-19 24 Unknown [facility] Other (1 source) Allergies Reconciled Propensity to adverse reactions 03-31-20 21 Unknown [facility] Other (1 source) patient allergy list reviewed by nurse or physicia Propensity to adverse reactions 02-17-20 19 Comment:Done [facility] Other (13 sources) MRI DYE Propensity to adverse reactions 10-20-19 17 Unknown [facility] Other (13 sources) Chantix *PSYCHOTHERAPEUTIC AND NEUROLOGICAL AGENTS Propensity to adverse reactions Unknown [facility] Other (13 sources) Contrast Allergy PreMed Pack *CORTICOSTEROIDS* Propensity to adverse reactions Comment:[facility] Other (13 sources) Flexeril *MUSCULOSKELETAL THERAPY AGENTS* Propensity to adverse reactions Unknown [facility] Other (6 sources) Acetaminophen Drug Allergy 09-28-19 24 [facility] (6 sources) butalbital Drug Allergy 09-28-19 24 [facility] (6 sources) Caffeine Drug Allergy 09-28-19 24 [facility] (7 sources) cyclobenzaprine; Translations: [CYCLOBENZAPRINE] Drug Allergy 11-04-19 13 [facility] (5 sources) Iodinated Contrast Media Allergy to substance 09-28-19 24 [facility] (5 sources) Chantix *PSYCHOTHERAPEUTIC AND Allergy to substance 09-28-19 24 [facility] (5 sources) Contrast Allergy PreMed Pack * Allergy to substance 07-05-19 Comment:MRI DYE [facility] (5 sources) Fioricet/Codeine Allergy to substance 09-28-19 24 [facility] (1 source) Contrast media; Translations: [DYE] Propensity to adverse reactions to drug (disorder) 10-22-19 [facility] Repository (1 source) Corticosteroids; Translations: [CORTICOSTEROIDS (GLUCOCORTICOIDS)] Propensity to adverse reactions to drug (disorder) 10-22-19 21 [facility] Repository (2 sources) diphenhydrAMINE; Translations: [DIPHENHYDRAMINE] Drug Allergy 12-26-19 13 [facility] Repository (1 source) SUMAtriptan; Translations: [SUMATRIPTAN SUCCINATE] Drug Allergy 12-01-19 17 [facility] Repository (2 sources) traMADol; Translations: [TRAMADOL] Drug Allergy 11-04-19 13 [facility] Repository (1 source) BUTALBITAL-ACETAMI NOPHEN-CAFF; Translations: [BUTALBITAL-ACETAM INOPHEN-CAFF] Propensity to adverse reactions to drug (disorder) 10-01-19 [facility] Repository (1 source) DIVALPROEX; Translations: [DIVALPROEX] Propensity to adverse reactions to drug (disorder) 12-03-19 17 [facility] Repository (1 source) IODINE AND IODIDE CONTAINING PRODUCTS; Translations: [IODINE AND IODIDE CONTAINING PRODUCTS] Propensity to adverse reactions to food (disorder) 10-22-19 [facility] Repository (1 source) OTHER; Translations: [OTHER] Propensity to adverse reactions (disorder) 10-22-19 [facility] Repository (1 source) Progesterone Drug Allergy 07-14-19 15 Swelling [facility] (1 source) Topiramate Allergy to substance 12-26-19 13 [facility] (1 source) Stbsbjsxuh-Dmif-Uv ff-Cod Drug Allergy 09-28-19 24 [facility] (1 source) Fibrinolysin Allergy to substance 12-26-19 13 [facility] (1 source) Kcyajofqzz-Cxrs-Vw ffeine Propensity to adverse reactions 11-25-19 23 [facility] (1 source) Prednisone & Diphenhydramine Drug Allergy 07-05-19 24 [facility] Medications Current Medications Medication Drug Class(es) Dates Sig (Normalized) Sig (Original) acetaminophen 325 mg / oxyCODONE hydrochloride 5 mg oral tablet (20 sources) Opioid Agonist Start: 03-24-2024 take 1 tablet by mouth every twelve hours Oxycodone-Acetami nophen Active 1 TAB PO Every 12 hours 60 March 24, 2024 Start: 09-28-2023 End: 03-23-2024 take 1 tablet by mouth every twelve hours Oxycodone-Acetaminophen Discontinued 1 T AB PO Every 12 hours 60 February 24, 2024 March 23, 2024 1:41pm Start: 08-26-2023 End: 09-28-2023 take 1 tablet [...] MG 1 tablet Orally bid Aug, Active oxyCODONE-acetam inophen (Percocet) 10-325 MG tablet every 6 (six) hours. Active [id number] 200 actuat albuterol 0.09 mg/actuat metered dose [...] Status: Taking; Provider: Michelle Grossman ( ) Start: 05-27-2023 albuterol (2.5 MG/3ML) 0.083% nebulizer solution Take 2.5 mg by nebulization every 4 (four) hours if needed 05/27/2023 Active Albuterol Sulfat e (2.5 MG/3ML) 0.083% [...] 2 puffs Inhalation Once a day Active cephalexin 500 mg oral capsule (19 sources) Cephalosporin Antibacterial Start: 03-14-2024 take 1 capsule by mouth twice daily at bedtime cephalexin (Keflex) 500 MG capsule Indications: Cystic acne TAKE 1 CAPSULE BY MOUTH TWICE DAILY (IN THE MORNING and BEFORE bedtime) 60 capsule 1 03/14/2024 Active Start: 09-28-2023 End: 09-28-2023 take 500 mg by mouth twice daily Cephalexin Discontinued 500 MG PO Twice daily September 28, 2023 12:00am September 28, 2023 1:54pm take 1 capsule by mt ut every six hours Keflex 250 MG 1 capsule Orally every 6 hrs Active cholecalciferol 0.05 mg oral capsule (1 source) Vitamin D take 1 capsule by mouth once daily cholecalciferol (Vitamin D-3) 50 MCG (1999 UT) capsule Take 2,000 Units by mouth Daily Active ferrous sulfate (1 source) Start: 05-05-20 take 1 tablet by mouth in the morning Ferrous Sulfate (IRON PO) Take 1 tablet by mouth in the morning. 05/05/2023 Active fluticasone propionate 0.05 mg/actuat metered dose nasal spray (20 sources) Corticosteroid Start: 02-15-20 24 End: 04-13-20 24 take 2 spray(s) nasal route once daily Fluticasone Propionate Active 0 .ROUTE .COMPLEX April 13, 2024 8:26am instill 2 (TWO) sprays IN EACH NOSTRIL DAILY Start: 12-27-2023 End: 02-15-2024 Fluticasone Propionate Disco ntinued 2 SPRAY INTRANASAL Daily December 27, 2023 9:44am February 15, 2024 8:37am Start: 09-28-2023 End: 12-27-2023 take 2 spray(s) nasal route once daily Fluticasone Propionate Discontinued INTRANASAL September 28, 2023 12:00am December 27, 2023 9:47am FreeTextSig: INSTILL 2 SPRAYS INTO EACH NOSTRIL DAILY FOR 30 DAYS; Note: Source Status: Taking; Refills: 3; Qty: 16 Gram; Provider: Michelle Lyle Start: 08-26-2023 take 1 spray(s) nasa l route once daily fluticasone (Flonase) 50 MCG/ACT nasal spray Administer 1 spray into each nostril Daily 08/26/2023 Active Fluticasone Prop ionate 50 MCG/ACT INSTILL 2 SPRAYS INTO EACH NOSTRIL DAILY FOR 30 DAYS for 30 Active Fluticasone Prop ionate 50 MCG/ACT INSTILL 2 SPRAYS INTO EACH NOSTRIL DAILY FOR 30 DAYS for 30 Active 12 hr guaiFENesin 600 mg extended release oral tablet (20 sources) Start: 10-26-2022 take 1 tablet by mouth every twelve hours in the morning Mucus Relief 600 MG 12 hr tablet Take 600 mg by mouth in the morning and 600 mg before bedtime. 10/26/2022 Active levothyroxine sodium 0.075 mg oral tablet (20 sources) l-Thyroxi ne Start: 03-14-2024 take 1 tablet by mouth once daily Levothyroxine Active 0 .ROUTE .COMPLEX March 14, 2024 8:20am TAKE 1 TABLET BY MOUTH DAILY Start: 09-27-2023 End: 03-14-2024 take 1 tablet by mouth once daily Levothyroxine Discontinued 75 MCG PO Daily September 28, 2023 7:38pm December 27, 2023 9:47am [employer]: TAKE ONE TABLET BY MOUTH DAILY; Note: Source Status: Taking; Provider: Michelle Lyle take 1 tablet by once daily Levothyroxine Sodium 75 MCG TAKE ONE TABLET BY MOUTH DAILY for 30 Active Magnesium (1 source) take 1 capsule by mouth once daily Magnesium 400 MG capsule Take 400 mg by mouth Daily Active methylPREDNISolone 4 mg oral tablet (13 sources) Corticosteroid Start: 2022 methylPREDNISolone 4 MG as directed Orally for 6 days Nov, Active montelukast 10 mg oral tablet (20 sources) Leukotriene Receptor Antagonist Start: 2023 take 1 tablet by mouth at bedtime Montelukast Active 0 .ROUTE .COMPLEX March 14, 2024 8:20am TAKE 1 TABLET BY MOUTH AT BEDTIME Start: 09-27-2023 End: 03-14-2024 take 1 tablet by mouth at bedtime montelukast (Singulair) 10 MG tablet Take 10 mg by mouth at bedtime 09/28/2023 Active take 1 tablet by ledy at bedtime Singulair 10 mg 1 tablet Orally at bedtime Active Pre-Ruthy (20 sources) Pre- Active predniSONE 20 mg oral tablet (11 sources) Start: 01-17-2024 End: 04-14-2024 take 20 mg by mouth twice daily Prednisone Active 20 MG PO Twice daily April 14, 2024 1:21pm Start: 03-11-2023 take 2 tablets by mo [facility] every twenty-four hours predniSONE 20 MG 2 tablets Orally Once a day for 5 days Feb, Active pregabalin 200 mg oral capsule (20 sources) Start: 01-17-2024 End: 03-20-2024 take 200 mg by mouth twice daily Pregabalin Active 200 MG PO Twice daily 60 March 20, 2024 1:05pm Start: 11-26-2023 End: 01-17-2024 take 1 capsule [...] Start: 07-01-2022 take 1 capsule by mo [facility] every twelve hours Lyrica 150 MG 1 capsule Orally Twice a day for 30 days October, Active Start: 07-01-2022 take 1 capsule by mo ut every twenty-four hours Lyrica 150 MG 1 capsule Orally Once a day for 30 days Jun, Active take 2 capsules by outh in the morning pregabalin (Lyrica) 75 MG capsule Take 150 mg by mouth in the morning and 150 mg before bedtime. Active Vit-Fe Fumarate-FA ( Vitamins) 28-0.8 MG tablet (1 source) Start: 09-21-2023 End: 09-20-2024 take 1 tablet by mouth once daily Vit-Fe Fumarate-FA ( Vitamins) 28-0.8 MG tablet Indications: Cystic acne Take 1 tablet by mouth Daily 30 tablet 3 09/21/2023 09/20/2024 Active promethazine hydrochloride 25 mg oral tablet [...] day(s) Aug, Active Tens Unit And Electrodes (3 sources) Start: 10-26-2023 Tens Unit And Electrodes Active 0 .Route 1 October 26, 2023 12:00am As directed tiZANidine 4 mg oral tablet (20 sources) Central alpha-2 Adrenergic Agonist Start: 04-14-2024 take 4 mg by mouth every twelve hours Tizanidine Active 4 MG PO Every 12 hours April 14, 2024 1:21pm Start: 09-28-2023 End: 04-14-2024 take 4 mg by mouth once daily at bedtime Tizanidine Discontinued 4 MG PO Daily at bedtime March 23, 2024 1:41pm April 14, 2024 1:26pm take 1 tablet by ledy every twelve hours Zanaflex 4 mg 1 tablet as needed Orally bid Not-Taking Completed/Discontinued Medications Medication Drug Class(es) Dates Sig (Normalized) Sig (Original) ALPRAZolam 1 mg oral tablet (6 sources) Benzodiazepine take 1 tablet by mouth every eight hours Xanax 1 MG 1 tablet Orally Three times a day Not-Taking 24 hr buPROPion hydrochloride 300 mg extended release oral tablet (20 sources) Aminoketone Start: 08-26-2023 End: 02-24-2024 take 300 mg by mouth once daily Bupropion Hcl Discontinued 300 MG PO Daily August 26, 2023 4:58pm November 26, 2023 8:41am Start: 11-20-2022 take 1 tablet by ledy th every twenty-four hours buPROPion HCl ER (XL) 300 MG 1 tablet in the morning Orally Once a day for 90 days October, Active take 1 tablet by ledy th every twenty-four hours in the morning buPROPion XL (Wellbutrin XL) 300 MG 24 hr tablet Take 300 mg by mouth in the morning. Do not crush, chew, or split. . Active dicyclomine hydrochloride 10 mg oral tablet [...] Classification Problem Date Documented Da te Episodic/Chronic Anxiety disorders (8 sources) Anxiety disorder, unspecified; Translations: [Anxiety disorder] Onset: 08-06-2015 02-02-2023 Chronic Asthma (20 sources) Unspecified asthma, uncomplicated; [...] HYPERTENSION] Onset: 04-21-2022 Chronic Headache; including migraine (2 sources) Migraine without aura, not refractory ; Translations: [Migraine, unspecified, not intractable, without status migrainosus] Onset: 02-02-2023 02-02-2023 Chronic Inflammatory diseases of female pelvic organs (1 source) Acute vaginitis; Translations: [Acute vaginitis] Onset: 10-13-2018 Episodic Influenza (1 source) Upper respiratory tract infection due to Influenza; Translations: [Influenza due to unidentified influenza virus with other respiratory manifestations] Episodic Malaise and fatigue (2 sources) Malaise and fatigue; Translations: [Other malaise and fatigue] Onset: 11-10-2016 Episodic Menstrual disorders (7 sources) Excessive and frequent menstruation; Translations: [Excessive and frequent menstruation with regular cycle] Onset: 12-02-2015 02-02-2023 Chronic Mood disorders (2 sources) Major depressive disorder, single episode, unspecified; Translations: [Depression] Onset: 04-21-2022 Chronic Nausea and vomiting (5 sources) Nausea with vomiting, unspecified; Translations: [Vomiting] Onset: 11-11-2018 Episodic Osteoporosis (1 source) Primary osteoporosis; Translations: [Age-related osteoporosis without current pathological fracture] Chronic Other aftercare (20 sources) High 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 drug 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 status; 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] Episodic Other complications of ; puerperium affecting management of mother (1 source) Galactorrhea not associated with childbirth; Translations: [Galactorrhea] Episodic Other complications of (1 source) Maternal obesity complicating , childbirth and the puerperium, antepartum; Translations: [Obesity complicating , unspecified trimester] Onset: 10-29-2020 02-02-2023 Chronic Other complications of (2 sources) High risk ; Translations: [Supervision of high risk , unspecified, unspecified trimester] Onset: 10-07-2020 Resolved: 10-15-2020 Episodic Other connective tissue disease (2 sources) Fibromyalgia; Translations: [Fibromyalgia] 11-26-2023 Episodic Other connective tissue disease (1 source) Fibromyalgia; Translations: [Myalgia and myositis, unspecified] 01-17-2024 Episodic Other female genital disorders (2 sources) Abnormal uterine bleeding; Translations: [Abnormal uterine and vaginal bleeding, unspecified] Onset: 02-02-2023 02-02-2023 Chronic Other gastrointestinal disorders (1 source) Irritable bowel syndrome with diarrhea; Translations: [Irritable bowel syndrome with diarrhea] Chronic Other nervous system disorders (1 source) Sensory disorder of smell and/or taste; Translations: [Unspecified disturbances of smell and taste] Episodic Other non-traumatic joint disorders (1 source) Derangement of right shoulder joint; Translations: [Other specific joint derangements of right shoulder, not elsewhere classified] Onset: 02-02-2023 02-02-2023 Chronic Other non-traumatic joint disorders (20 sources) Shoulder [...] Chronic Other nutritional; endocrine; and metabolic disorders (2 sources) Obesity; Translations: [Obesity, unspecified] Onset: 11-10-2021 02-02-2023 Chronic Other skin disorders (1 source) Acne vulgaris; Translations: [Acne vulgaris] Episodic Other upper respiratory disease (1 source) Seasonal allergic rhinitis; Translations: [Other seasonal allergic rhinitis] Onset: 12-21-2018 Chronic Other upper respiratory disease (2 sources) Allergic rhinitis; Translations: [Other allergic rhinitis] Onset: 09-30-2016 02-02-2023 Chronic Residual codes; unclassified (2 sources) Tobacco [...] Translations: [Cervicalgia] Onset: 07-01-2015 Episodic Substance-related disorders (7 sources) Tobacco user; Translations: [Nicotine dependence, cigarettes, in remission] Onset: 09-30-2016 01-10-2023 Chronic Thyroid disorders (16 sources) Hypothyroidism; Translations: [Hypothyroidism, unspecified] Onset: 02-02-2023 Chronic Unclassified (1 source) Long-term current use of drug therapy; Translations: [Long-term (current) use of other medications] Onset: 10-04-2014 Past or Other Problems Problem Classification Problem Date Documented Da te Episodic/Chronic Abdominal hernia (2 sources) Umbilical hernia; Translations: [Umbilical hernia without obstruction or gangrene] Onset: 02-02-2023 02-02-2023 Episodic Abdominal pain (2 sources) Abdominal pain; Translations: [...] humerus, lateral condyle ] Onset: 06-16-2016 Episodic Headache; including migraine (1 source) Headache; Translations: [Headache] Onset: 08-30-2012 02-02-2023 Episodic Hemorrhage during ; abruptio placenta; placenta previa (2 sources) Placenta previa without hemorrhage; Translations: [Low lying placenta NOS or without hemorrhage, unspecified trimester] Onset: 10-29-2020 02-02-2023 Episodic Nonmalignant breast conditions (6 sources) Mastitis without abscess; Translations: [O/E-breast lump-upper out-quad] Onset: 07-10-2013 Episodic Other aftercare (1 source) Other senior living (current) drug therapy; Translations: [OTH TITLE EXAMINER CURRENT DRUG THERAPY] Onset: 04-21-2022 Episodic Other aftercare (2 sources) Long-term current use of inhaled steroid; Translations: [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] Onset: 02-02-2023 02-02-2023 Episodic Other aftercare (1 source) History and [...] unspecified] Resolved: 05-06-2021 Episodic Other complications of (2 sources) Abnormal findings on screening of mother; Translations: [Abnormal hematological finding on screening of mother] Onset: 10-13-2020 Resolved: 05-06-2021 02-02-2023 Episodic Other complications of (1 source) Asthma; Translations: [Diseases of the respiratory system complicating , unspecified trimester] Onset: 10-29-2020 02-02-2023 Episodic Other complications of (1 source) Depressive disorder in mother complicating ; Translations: [Other mental disorders complicating , unspecified trimester] Onset: 02-02-2023 02-02-2023 Episodic Other complications of (1 source) Tobacco smoking in mother complicating ; Translations: [Smoking (tobacco) complicating , unspecified trimester] Onset: 09-30-2016 02-02-2023 Episodic Other connective tissue disease (3 sources) Pain in right arm; Translations: [PAIN IN RIGHT ARM] Onset: 04-20-2022 Episodic Other connective tissue disease (1 source) Spasm; Translations: [Spasm of muscle] Onset: 01-26-2014 Episodic Other connective tissue disease (1 source) Pain in limb; Translations: [Pain in unspecified limb] Onset: 08-30-2012 02-02-2023 Episodic Other eye disorders (1 source) Exotropia; Translations: [Unspecified exotropia] Onset: 07-10-2013 Episodic Other gastrointestinal disorders (1 source) Diarrhea; Translations: [Diarrhea, unspecified] Onset: 05-07-2014 Episodic Other injuries and conditions due to external causes (1 source) History of fall; Translations: [History of falling] Resolved: 09-12-2021 Episodic Other lower respiratory disease (1 source) Chronic cough; Translations: [Chronic cough] Onset: 09-30-2016 02-02-2023 Episodic Other nervous system disorders (1 source) H/O: migraine; Translations: [Personal history of other diseases of the nervous system and sense organs] Onset: 10-29-2020 02-02-2023 Episodic Other nervous system disorders (1 source) Disorder of smell; Translations: [Unspecified disturbances of smell and taste] Onset: 02-02-2023 02-02-2023 Episodic Other non-traumatic joint disorders (1 source) Joint effusion of ankle AND/OR foot; Translations: [Effusion of ankle and foot joint] Onset: 12-05-2015 Episodic Other non-traumatic joint disorders (1 source) Pain in wrist; Translations: [Pain in left wrist] Onset: 11-05-2014 Episodic Other nutritional; endocrine; and metabolic disorders (2 sources) Abnormal weight gain; Translations: [Abnormal weight gain] Onset: 09-12-2021 02-02-2023 Episodic Other and delivery including normal (1 source) test positive; Translations: [Encounter for test, result positive] Resolved: 10-15-2020 Episodic Other screening for suspected conditions (not mental disorders or infectious disease) (10 sources) Encounter for screening for malignant neoplasm of cervix; Translations: [Abnormal findings on diagnostic imaging of breast] Onset: 11-11-2018 Resolved: 10-15-2020 Episodic Other skin disorders (2 sources) Acne; Translations: [Acne, unspecified] Onset: 02-02-2023 02-02-2023 Episodic Other skin disorders (1 source) Folliculitis; Translations: [Follicular disorder, unspecified] Onset: 02-16-2019 Episodic Other skin disorders (1 source) Cystic acne; Translations: [Acne vulgaris] Onset: 02-02-2023 02-02-2023 Episodic Other upper respiratory infections (1 source) [...] of mental health and substance abuse codes (2 sources) Personal history of nicotine dependence; Translations: [Tobacco use and exposure - finding] Onset: 04-21-2022 02-02-2023 Episodic Skin and subcutaneous tissue infections (2 [...] Test Name Value Interpretation Reference Range Facility ALL BASIC METABOLIC PANELon 04-14-2024 Anion gap [Moles/Vol] 12.4 mmol/L NO [facility] Calcium [Mass/Vol] 8.9 mg/dL 8.5 - 10. 1 mg/dL [facility] Chloride [Moles/Vol] 108 mmol/L High 98 - 10 7 mmol/L [facility] CO2 [Moles/Vol] 25.8 mmol/L 21.0 - 32.0 mmol/L [facility] Creatinine [Mass/Vol] 0.81 mg/dL 0.55 - 1.02 mg/dL [facility] GFR/1.73 sq M.predicted CKD-EPI (S/P/Bld) [Vol rate/Area] >60 >=60 mL/min/1.7 3m 2 [facility] Glucose [Mass/Vol] 97 mg/dL 74 - 106 mg/dL [facility] Potassium [Moles/Vol] 4.2 mmol/L 3.5 - 5.1 mmol/L [facility] Sodium [Moles/Vol] 142 mmol/L 136 - 145 mmol/L [facility] TBH EGFR-NON AF [place] >60 >=60 mL/min/1.7 3m 2 [facility] Urea nitrogen [Mass/Vol] 8 mg/dL 7.0 - 18.0 mg/dL [facility] Urea nitrogen/Creatinine [Mass ratio] 9.9 mg/mg [facility] ALL TYPE AND SCREENon 2023 ABO and Rh group Nom (d) Blood group A Rh(D) positive [facility] [place] Activated partial thrombopla stin time (aPTT) in platelet poor plasma by coagulation aon 04-14-2024 aPTT Coag (PPP) [Time] 28.5 s 22.3-36.2 [facility] Basophils Auto (Bld) [#/Vol] on 04-14-2024 Basophils (Bld) [#/Vol] 0.0 10 3/uL 0.0-0.1 [facility] Basophils/100 WBC Auto (Bld) on 04-14-2024 Basophils/100 WBC (Bld) 0.6 % 0.2-2.0 [facility] Eosinophils/100 WBC Auto (Bl d)on 04-14-2024 Eosinophils/100 WBC (Bld) 3.1 % 0.9-7.0 [facility] Erythrocyte distribution wid th Auto (RBC) [Ratio]on 04-14-2024 Erythrocyte distribution width (RBC) [Ratio] 13.1 % 11.0-15.0 [facility] Estimated glomerular filtrat ion rate (GFR) non- Americanon 04-14-2024 GFR/1.73 sq M.predicted among non-blacks MDRD (S/P/Bld) [Vol rate/Area] mL/min/{1.73_m2} >=60 mL/min/1.7 3m 2 [facility] Globulin Calc (S) [Mass/Vol] on 04-14-2024 Globulin (S) [Mass/Vol] 3.1 g/dL F [facility] LIVER PANELon Albumin [Mass/Vol] 3.1 g/dL Low 3.4 - 5.0 g/dL [facility] ALBUMIN GLOBULIN RATIO 1 NO [facility] ALP [Catalytic activity/Vol] 42 U/L Low 46 - 116 U/L [facility] ALT [Catalytic activity/Vol] 11 U/L Low 14 - 59 U/L [facility] AST [Catalytic activity/Vol] 10 U/L Low 15 - 37 U/L [facility] Bilirubin [Mass/Vol] 0.3 mg/dL 0.2 - 1 .0 mg/dL [facility] Bilirubin.indirect [Mass/Vol] 0.1 mg/dL 0.0 - 0.2 mg/dL [facility] Globulin (S) [Mass/Vol] 3.1 g/dL N [facility] Protein [Mass/Vol] 6.2 g/dL Low 6.4 - 8.2 g/dL [facility] Hematocrit Auto (Bld) [Volum e fraction]on 04-14-2024 Hematocrit (Bld) [Volume fraction] 39.6 % 36.0-48.0 [facility] Hemoglobin [Mass/volume] in Bloodon 04-14-2024 Hemoglobin (Bld) [Mass/Vol] 13.0 g/dL 12.0-16.0 [facility] INR in Platelet poor plasma by Coagulation assayon 04-14-2024 INR Coag (PPP) [Relative time] 1.03 {INR} [facility] Comment on above: DESIRED INR:2.0-3.0 CONDITIONS NOT LISTED BELOW2.5-3.5 FOR PROSTHETIC HEART VALVE REPLACEMENT2.5-3.5 RECURRENT THROMBOSIS Laboratory - Chemistry and C hemistry - challengeon 04-14-2024 Albumin [Mass/Vol] 3.1 g/dL Low 3.4-5.0 [facility] ALP [Catalytic activity/Vol] 42 U/L Low 46-116 [facility] ALT [Catalytic activity/Vol] 11 U/L Low 14-59 [facility] AST [Catalytic activity/Vol] 10 U/L Low 15-37 [facility] Bilirubin [Mass/Vol] 0.3 mg/dL 0.2-1.0 [facility] Bilirubin.direct [Mass/Vol] 0.1 mg/dL 0.0-0.2 [facility] Calcium [Mass/Vol] 8.9 mg/dL 8.5-10.1 [facility] Chloride [Moles/Vol] 108 mmol/L High 98-107 [facility] CO2 [Moles/Vol] 25.8 mmol/L 21.0-32.0 [facility] Creatinine [Mass/Vol] 0.81 mg/dL 0.55-1.02 [facility] GFR/1.73 sq M.predicted MDRD (S/P/Bld) [Vol rate/Area] mL/min/{1.73_m2} >=60 mL/min/1.7 3m 2 [facility] Glucose [Mass/Vol] 97 mg/dL 74-106 [facility] Potassium [Moles/Vol] 4.2 mmol/L 3.5-5.1 [facility] Protein [Mass/Vol] 6.2 g/dL Low 6.4-8.2 [facility] Sodium [Moles/Vol] 142 mmol/L 136-145 [facility] Urea nitrogen [Mass/Vol] 8.0 mg/dL 7.0-18.0 [facility] Urea nitrogen/Creatinine [Mass ratio] 9.9 mg/mg [facility] Laboratory - Hematology and Cell countson 04-14-2024 Immature granulocytes/100 WBC (Bld) 0.0 % 0.0-0.5 [facility] Leukocytes [#/volume] correc gem for nucleated erythrocytes in Blood by Automated counon 04-14-2024 WBC corrected for nucl RBC Auto (Bld) [#/Vol] 7.2 10 3/uL 4.0-11.0 [facility] Lymphocytes Auto (Bld) [#/Vo l]on 04-14-2024 Lymphocytes (Bld) [#/Vol] 2.2 10 3/uL 1.2-3.8 [facility] Lymphocytes/100 WBC Auto (Bl d)on 04-14-2024 Lymphocytes/100 WBC (Bld) 30.4 % 20.5-60.0 [facility] MCH Auto (RBC) [Entitic mass ]on 04-14-2024 MCH (RBC) [Entitic mass] 31.1 pg 26.7-34.0 [facility] MCHC Auto (RBC) [Mass/Vol]on 04-14-2024 MCHC (RBC) [Mass/Vol] 32.8 g/dL 29.9-35.2 [facility] MCV Auto (RBC) [Entitic vol] on 04-14-2024 MCV (RBC) [Entitic vol] 94.7 fL 81.0-99.0 [facility] Monocytes Auto (Bld) [#/Vol] on 04-14-2024 Monocytes (Bld) [#/Vol] 0.7 10 3/uL 0.3-0.8 [facility] Monocytes/100 WBC Auto (Bld) on 04-14-2024 Monocytes/100 WBC (Bld) 9.3 % 1.7-12.0 [facility] Neutrophils Auto (Bld) [#/Vo l]on 04-14-2024 Neutrophils (Bld) [#/Vol] 4.1 10 3/uL 1.4-6.5 [facility] Neutrophils/100 WBC Auto (Bl d)on 04-14-2024 Neutrophils/100 WBC (Bld) 56.6 % 43.0-75.0 [facility] No Panel Informationon 04-14 Interpretation and review of laboratory results Abnormal [facility] Eosinophils # (Auto) 0.2 10 3/uL 0.0-0.7 [facility] Immature Granulocyte # (Auto) 0.00 10 3/uL 0.00-0.03 [facility] Platelet mean volume Auto (B ld) [Entitic vol]on 04-14-2024 Platelet mean volume (Bld) [Entitic vol] 10.5 fL 9.5-13.5 [facility] Platelets Auto (Bld) [#/Vol] on 04-14-2024 Platelets (Bld) [#/Vol] 227 10 3/uL 150-450 [facility] Prothrombin time (PT)on 03-28 PT Coag (PPP) [Time] 10.9 s 9.0-11.6 [facility] RBC Auto (Bld) [#/Vol]on RBC (Bld) [#/Vol] 4.18 10 6/uL Low 4.20-5.40 [facility] Serum or plasma albumin/glob ulin mass ratioon 04-14-2024 Albumin/Globulin [Mass ratio] 1.0 {ratio} [facility] Serum or plasma anion gap de terminationon 04-14-2024 Anion gap [Moles/Vol] 12.4 mmol/L Fi [facility] Basophils Auto (Bld) [#/Vol] on 11-12-2023 Basophils (Bld) [#/Vol] 0.1 10 3/uL 0.0-0.1 [facility] Basophils/100 WBC Auto (Bld) on 11-12-2023 Basophils/100 WBC (Bld) 0.5 % 0.2-2.0 F [facility] Eosinophils/100 WBC Auto (Bl d)on 11-12-2023 Eosinophils/100 WBC (Bld) 3.8 % 0.9-7.0 [facility] Erythrocyte distribution wid th Auto (RBC) [Ratio]on 11-12-2023 Erythrocyte distribution width (RBC) [Ratio] 13.1 % 11.0-15.0 [facility] Hematocrit Auto (Bld) [Volum e fraction]on 11-12-2023 Hematocrit (Bld) [Volume fraction] 40.6 % 36.0-48.0 [facility] Hemoglobin [Mass/volume] in Bloodon 11-12-2023 Hemoglobin (Bld) [Mass/Vol] 13.4 g/dL 12.0-16.0 [facility] Laboratory - Hematology and Cell countson 11-12-2023 Immature granulocytes/100 WBC (Bld) 0.1 % 0.0-0.5 [facility] Leukocytes [#/volume] correc gem for nucleated erythrocytes in Blood by Automated counon 11-12-2023 WBC corrected for nucl RBC Auto (Bld) [#/Vol] 9.4 10 3/uL 4.0-11.0 [facility] Lymphocytes Auto (Bld) [#/Vo l]on 11-12-2023 Lymphocytes (Bld) [#/Vol] 4.3 10 3/uL High 1.2-3.8 [facility] Lymphocytes/100 WBC Auto (Bl d)on 11-12-2023 Lymphocytes/100 WBC (Bld) 45.1 % 20.5-60.0 [facility] MCH Auto (RBC) [Entitic mass ]on 11-12-2023 MCH (RBC) [Entitic mass] 31.1 pg 26.7-34.0 [facility] MCHC Auto (RBC) [Mass/Vol]on 11-12-2023 MCHC (RBC) [Mass/Vol] 33.0 g/dL 29.9-35.2 [facility] MCV Auto (RBC) [Entitic vol] on 11-12-2023 MCV (RBC) [Entitic vol] 94.2 fL 81.0-99.0 [facility] Monocytes Auto (Bld) [#/Vol] on 11-12-2023 Monocytes (Bld) [#/Vol] 0.8 10 3/uL 0.3-0.8 [facility] Monocytes/100 WBC Auto (Bld) on 11-12-2023 Monocytes/100 WBC (Bld) 7.9 % 1.7-12.0 [facility] Neutrophils Auto (Bld) [#/Vo l]on 11-12-2023 Neutrophils (Bld) [#/Vol] 4.0 10 3/uL 1.4-6.5 [facility] Neutrophils/100 WBC Auto (Bl d)on 11-12-2023 Neutrophils/100 WBC (Bld) 42.6 % Low 43.0-75.0 [facility] No Panel Informationon 11-11 Eosinophils # (Auto) 0.4 10 3/uL 0.0-0.7 [facility] Human Chorionic Gonadotropin, Quant <1 mIU/mL [facility] Comment on above: 5-50 0.2-1 [id number] 0 1-2 WMYHD857-7,000 2-3 GTYRM743-25,000 3-4 WEEKS1,000-50,000 4-5 WEEKS10,000-100,000 5-6 WEEKS15,000-200,000 6-8 WEEKS10,000-100,000 2-3 MONTHS Immature Granulocyte # (Auto) 0.01 10 3/uL 0.00-0.03 [facility] Platelet mean volume Auto (B ld) [Entitic vol]on 11-12-2023 Platelet mean volume (Bld) [Entitic vol] 9.9 fL 9.5-13.5 [facility] Platelets Auto (Bld) [#/Vol] on 11-12-2023 Platelets (Bld) [#/Vol] 275 10 3/uL 150-450 [facility] RBC Auto (Bld) [#/Vol]on RBC (Bld) [#/Vol] 4.31 10 6/uL 4.20-5.40 [facility] Human papilloma virus 16+18+ 31+33+35+39+45+51+52+56+58+59+66+68 DNA [Presence] in Tommy 11-02-2023 HPV 16+18+31+33+35+39+45+51 +52+56+58+59+66+68 DNA Probe+sig amp Ql (Cvx) Negative Negative [facility] Comment on above: This nucleic acid am plification test detects fourteen high-risk HPV types (16,18,31,33,35,39,45,51,52,56,58,59,66,68)without differentiation.Performed at: = - Lab[address] [place] [id number] Director: Annia Jiménez MD, Phone: [phone] at: - [facility] [address] [facility] [place], [place] [id number] Director: Annia Jiménez MD, Phone: [phone] No Panel Informationon 11-01 HPV High Risk Other Comment Note . [facility] Comment on above: TESTS RESULT FLAG UN ITS REF RANGE LAB -DIAGNOSIS: 02 NEGATIVE FOR INTRAEPITHELIAL LESION OR MALIGNANCY.Specimen adequacy: 02 Satisfactory for evaluation. No endocervical component is identified.Performed by: 02 Mary Nelson, Conciliator ([facility]). 02Note: Note 02 The Pap smear is [...] Criteria not met, HPV Genotype not performed. -------- FLAG LEGEND: L-Low Normal,H-High Normal,LL-Alert Low,HH-Alert High <-Panic Low,>-Panic High,A-Abnormal,AA-Critical Abnormal ------Performed at:02 WB [facility] [address] [place] [address] Annia Jiménez MD, Reference Lab Test Patient Age Note . [facility] Comment on above: TESTS RESULT FLAG UN ITS REF RANGE LAB - Clinician Provided Cytology Information Source.............Cervix;Endocervix No. of containers..01 ThinPrep VialAge Sukhio TYSONOG Cathie... FLAG LEGEND: L-Low Normal,H-High Normal,LL-Alert Low,HH-Alert High <-Panic Low,>-Panic High,A-Abnormal,AA-Critical Abnormal ------Performed at:01 =G [address] [address] Annia Jiménez MD, Ayo 10-13-2023 L Specimen: Received: 10/14/23 Status: JULIAN Amaya Num: [id number] Spec Type: Surgical Subm Dr: Katie Valadez Tissues: A Endometrium - Biopsy (ENDOMETRIAL BX) Procedures: HE/2, Gross/Micro L4 Age/ Patient Sex Location Account Attending Physician Lam Moore 43/F [facility] [id number] Katie Valadez SPEC NUM: RECD: 10/14/23 STATUS: JULIAN AMAYA NUM: [id number] WHIT: 10/13/23- SUBM DR: Katie Valadez ENTERED: 10/14/[address] [facility] [address]: SPEC TYPE: Surgical DEPT: S ENTERED BY: [id number] RECV BY: [id number] ORDERED: HE/2, Gross/Micro L4 ORDERED: RHOAN Gross/Micro L4 Pathological Diagnosis Endometrial biopsy: -Patchy [...] history: Irregular menstrual cycle TW CPT Codes 52314 Specimen: [id number] Received: 10/14/23 Status: JULIAN Amaya Num: [id number] Spec Type: Surgical Subm Dr: Katie Valadez Tissues: A Endometrium - Biopsy (ENDOMETRIAL BX) Procedures: WILLIAM/Amy, Gross/Micro L4 Patient: Lam Moore [id number] (Continued) Signed (signature on file) Douglas Deleon MD 10/18/232101 Normal [facility] Basophils Auto (Bld) [#/Vol] on 09-28-2023 Basophils (Bld) [#/Vol] 0.1 10 3/uL 0.0-0.1 [facility] Basophils/100 WBC Auto (Bld) on 09-28-2023 Basophils/100 WBC (Bld) 0.8 % 0.2-2.0 [facility] Eosinophils/100 WBC Auto (Bl d)on 09-28-2023 Eosinophils/100 WBC (Bld) 3.4 % 0.9-7.0 [facility] Erythrocyte distribution wid th Auto (RBC) [Ratio]on 09-28-2023 Erythrocyte distribution width (RBC) [Ratio] 13.1 % 11.0-15.0 [facility] Glucose mean value [Mass/vol ume] in Blood Estimated from glycated hemoglobinon 09-28-2023 Average glucose Estimated from glycated hemoglobin (Bld) [Mass/Vol] 91 mg/dL [facility] Hematocrit Auto (Bld) [Volum e fraction]on 09-28-2023 Hematocrit (Bld) [Volume fraction] 41.1 % 36.0-48.0 [facility] Hemoglobin [Mass/volume] in Bloodon 09-28-2023 Hemoglobin (Bld) [Mass/Vol] 13.3 g/dL 12.0-16.0 [facility] Laboratory - Chemistry and C hemistry - challengeon 09-28-2023 Free T4 [Mass/Vol] 0.93 ng/dL 0.76-1.46 [facility] TSH Qn 1.327 m[IU]/L 0.358-3.74 0 [facility] Laboratory - Hematology and Cell countson 09-28-2023 HbA1c (Bld) [Mass fraction] 4.8 % 4.5-6.2 [facility] Comment on above: ADA RECOMMENDED LIMI T 4.0 - 6.0ADA THERAPEUTIC TARGET < 7.0ACTION SUGGESTED> 7.0 Immature granulocytes/100 WBC (Bld) 0.1 % 0.0-0.5 [facility] Leukocytes [#/volume] correc gem for nucleated erythrocytes in Blood by Automated counon 09-28-2023 WBC corrected for nucl RBC Auto (Bld) [#/Vol] 7.1 10 3/uL 4.0-11.0 [facility] Lymphocytes Auto (Bld) [#/Vo l]on 09-28-2023 Lymphocytes (Bld) [#/Vol] 2.8 10 3/uL 1.2-3.8 [facility] Lymphocytes/100 WBC Auto (Bl d)on 09-28-2023 Lymphocytes/100 WBC (Bld) 39.0 % 20.5-60.0 [facility] MCH Auto (RBC) [Entitic mass ]on 09-28-2023 MCH (RBC) [Entitic mass] 30.6 pg 26.7-34.0 [facility] MCHC Auto (RBC) [Mass/Vol]on 09-28-2023 MCHC (RBC) [Mass/Vol] 32.4 g/dL 29.9-35.2 [facility] MCV Auto (RBC) [Entitic vol] on 09-28-2023 MCV (RBC) [Entitic vol] 94.5 fL 81.0-99.0 [facility] Monocytes Auto (Bld) [#/Vol] on 09-28-2023 Monocytes (Bld) [#/Vol] 0.5 10 3/uL 0.3-0.8 [facility] Monocytes/100 WBC Auto (Bld) on 09-28-2023 Monocytes/100 WBC (Bld) 7.3 % 1.7-12.0 [facility] Neutrophils Auto (Bld) [#/Vo l]on 09-28-2023 Neutrophils (Bld) [#/Vol] 3.5 10 3/uL 1.4-6.5 [facility] Neutrophils/100 WBC Auto (Bl d)on 09-28-2023 Neutrophils/100 WBC (Bld) 49.4 % 43.0-75.0 [facility] No Panel Informationon 09-27 Dehydroepiandrosterone (DHEA) 330 ng/dL 31-701 [facility] Comment on above: This test was develo ped and its performance characteristicsdetermined by [facility]. It has not been cleared orapproved by the Food and Drug Administration.Performed at: [facility] [address] [id number] Director: Ragini Enriquez MD, Phone: [phone] Dehydroepiandrosterone Sulfate 98.1 ug/dL 57.3-279.2 [facility] Eosinophils # (Auto) 0.2 10 3/uL 0.0-0.7 [facility] Follicle Stimulating Hormone 32.8 mIU/mL . [facility] Comment on above: Adult Female Range F ollicular phase 3.5 - 12.5 Ovulation phase 4.7 - 21.5 Luteal phase 1.7 - 7.7 Postmenopausal 25.8 - 134.8Performed at: [facility] [address] [id number] Director: Julius Meza PhD, Phone: [phone] Human Chorionic Gonadotropin, Quant <1 mIU/mL [facility] Comment on above: 5-50 0.2-1 NFHY06-69 0 1-2 RYPJD247-4,000 2-3 JJFNW410-94,000 3-4 WEEKS1,000-50,000 4-5 WEEKS10,000-100,000 5-6 WEEKS15,000-200,000 6-8 WEEKS10,000-100,000 2-3 MONTHS Immature Granulocyte # (Auto) 0.01 10 3/uL 0.00-0.03 [facility] Platelet mean volume Auto (B ld) [Entitic vol]on 09-28-2023 Platelet mean volume (Bld) [Entitic vol] 10.0 fL 9.5-13.5 [facility] Platelets Auto (Bld) [#/Vol] on 09-28-2023 Platelets (Bld) [#/Vol] 286 10 3/uL 150-450 [facility] RBC Auto (Bld) [#/Vol]on RBC (Bld) [#/Vol] 4.35 10 6/uL 4.20-5.40 [facility] Serum or plasma lutropin geoff surement (units/volume)on 09-28-2023 Lutropin Qn 19.0 m[IU]/mL . [facility] Comment on above: Adult Female Range [...] VERY IMPORTANT TO YOUR HEALTH. THE CURRENT [place] [employer] N[employer] COMPREHENSIVE CANCER [...] to 66on 11-04-2022 . . Normal [facility] Comment on above: Result Comment: Perf ormed at: WB Performed By: #### [id number] #### [facility] Laboratory [address] [place] [address] Dr. Kleber Deleon Age Gdln ACOG Testing 30-65 Normal [facility] Comment on above: Performed By: #### 4 [id number] #### [facility] [address] [place] [address] Dr. Kleber Deleon DIAGNOSIS: Comment Normal [facility] Comment on above: Result Comment: NEGA TIVE FOR INTRAEPITHELIAL LESION OR MALIGNANCY. Performed at: WB Performed By: #### [id number] #### [facility] [address] [place] [address] Dr. Kleber Deleon HPV Aptima Negative Normal Negative [facility] Comment on above: Result Comment: This nucleic acid amplification test detects fourteen high-risk HPV types (16,18,31,33,35,39,45,51,52,56,58,59,66,68) without differentiation. Performed at: =G Performed By: #### [id number] #### [facility] [address] [place] [address] Dr. Kleber Deleon HPV Genotype Reflex Comment Normal [facility] Comment on above: Result Comment: Crit eria not met, HPV Genotype not performed. Performed at: WB Performed By: #### [id number] #### [facility] [address] [place] [address] Dr. Kleber Deleon Methodology: Comment Normal [facility] Comment on above: Result Comment: This liquid based ThinPrep(R) pap test was screened with the use of an image guided system. Performed at: WB Performed By: #### [id number] #### [facility] [address] [place] [address] Dr. Kleber Deleon Note: Comment Normal [facility] Comment on above: Result Comment: The Pap smear is a screening test designed to aid in the detection of premalignant and malignant conditions of the uterine cervix. It is not a diagnostic procedure and should not be used as the sole means of detecting cervical cancer. Both false-positive and false-negative reports do occur. . Performed at: WB Performed By: #### [id number] #### [facility] [address] [place], [place] [address] Dr. Kleber Deleon Performed by: Comment Normal [facility] Comment on above: Result Comment: Alyssa Henderson, Conciliator (ASCP) Performed at: WB Performed By: #### [id number] #### [facility] [address] [place], [place] [address] Dr. Kleber Deleon Specimen adequacy: Comment Normal [facility] Comment on above: Result Comment: Sati sfactory for evaluation. Endocervical and/or squamous metaplastic cells (endocervical component) are present. Performed at: WB Performed By: #### [id number] #### [facility] [address] [id number] Kleber Deleon XR FACIAL MIN 3 VIEWSon 03-29 XR FACIAL MIN 3 VIEWS EXAM: XR FACIAL WV N 3 VIEWS HISTORY: Falls ; fell downstairs, facial pain COMPARISON: None. TECHNIQUE: FINDINGS: No visible fracture of the facial bones. Orbital rims are intact. No fluid levels within the paranasal sinuses. IMPRESSION: 1. No acute bone abnormality. Electronically authenticated by: EVERARDO PORTER Date: 2022-04-20 07:52 Normal [facility] Cult,Genitalon 10-16-2018 Cult,Genital Specimen Description .VAGINA Special Requests NOT REPORTED Culture NORMAL URO-GENITAL DAVI STREPTOCOCCI, BETA HEMOLYTIC GROUP B ISOLATED. NEGATIVE FOR NEISSERIA GONORRHOEAE Report Status FINAL 10/16/2018 Normal [facility] Comment on above: Performed By: #### G EC #### [address] [id number] Repacker: Bob Whitehead MD [facility] [address] [place] [address] Repacker: Jorge Luis Nina MD Cytologyon 01-27-2018 Cytology (NOTE) [id number] [facility] ANATOMIC PATHOLOGY [address] [place] [address] [id number] GYNECOLOGIC CYTOLOGY REPORT Patient Name: LAM MOORE MR#: [id number] Specimen #[id number] Source: 1: Cervical material, (ThinPrep vial, Imaging-assisted review) Clinical History Z01.419 Routine wound/ostomy clinical nurse specialist exam without abnormal findings High Risk HPV DNA testing is requested if the diagnosis is ASC-US History of: Cervical lesion destruction LMP: 12/30/17 INTERPRETATION Cervical material, (ThinPrep vial, Imaging-assisted review): Specimen Adequacy: Satisfactory for evaluation. - Endocervical/transformatio n zone component present. Descriptive Diagnosis: Negative for intraepithelial lesion or malignancy. Conciliator: JEOVANY Gerber(ASCP) Electronically Signed Out mathew/02/16/2018 [facility] Comment on above: Performed By: #### P PPVP #### [facility] [id number] Vital Signs Date Time Vital Sign Value Performing Clinician Facility 04-14-2024 13:05-0400 Body height 175.26 cm [facility] 04-14-2024 13:05-0400 Body mass index (BMI) [Ratio] 25.7 kg/m2 [facility] 04-14-2024 13:05-0400 Body weight 79 kg [facility] 04-14-2024 13:05-0400 Diastolic blood pressure 84 mm[Hg] [facility] 04-14-2024 13:05-0400 Heart rate 70 /min [facility] 04-14-2024 13:05-0400 SaO2% (BldA) [Mass fraction] 98 % [facility] 04-14-2024 13:05-0400 Systolic blood pressure 120 mm[Hg] [facility] 01-17-2024 15:18-0400 Body height 175.26 cm [facility] 01-17-2024 15:18-0400 Body mass index (BMI) [Ratio] 25.7 kg/m2 [facility] 01-17-2024 15:18-0400 Body weight 78.92 kg [facility] 01-17-2024 15:18-0400 Diastolic blood pressure 81 mm[Hg] [facility] 01-17-2024 15:18-0400 Heart rate 78 /min [facility] 01-17-2024 15:18-0400 Systolic blood pressure 127 mm[Hg] [facility] 10-26-2023 11:04-0400 Body height 175.26 cm MD Ngoc Martinez Work Phone: [facility] 10-26-2023 11:04-0400 Body mass index (BMI) [Ratio] 25.8 kg/m2 MD Ngoc Martinez Work Phone: [facility] 10-26-2023 11:04-0400 Body weight 79.43 kg MD Ngoc Martinez Work Phone: [facility] 10-26-2023 11:04-0400 Diastolic blood pressure 86 mm[Hg] MD Ngoc Martinez Work Phone: [facility] 10-26-2023 11:04-0400 Heart rate 73 /min MD Ngoc Martinez Work Phone: [facility] 10-26-2023 11:04-0400 Systolic blood pressure 121 mm[Hg] MD Ngoc Martinez Work Phone: [facility] 09-28-2023 13:33-0400 Body height 175.26 cm [facility] 09-28-2023 13:33-0400 Body mass index (BMI) [Ratio] 24.8 kg/m2 [facility] 09-28-2023 13:33-0400 Body weight 76.43 kg [facility] 09-28-2023 13:33-0400 Diastolic blood pressure 91 mm[Hg] [facility] 09-28-2023 13:33-0400 Heart rate 64 /min [facility] 09-28-2023 13:33-0400 Systolic blood pressure 128 mm[Hg] [facility] 06-11-2023 10:15-0500 Body height 175.26 cm Ngoc Martinez Other [employer] Other 06-11-2023 10:15-0500 Body mass index (BMI) [Ratio] 25.99 kg/m2 Ngoc Martinez Other [employer] Other 06-11-2023 10:15-0500 Body weight 79.83 kg Ngoc Martinez Other [employer] Other 06-11-2023 10:15-0500 Diastolic blood pressure 76 mm[Hg] Ngoc Martinez Other [employer] Other 06-11-2023 10:15-0500 Systolic blood pressure 125 mm[Hg] Ngoc Martinez Other [employer] Other 03-11-2023 11:15-0400 Body height 175.26 cm Ngoc Martinez Other [employer] Other 03-11-2023 11:15-0400 Body mass index (BMI) [Ratio] 26.73 kg/m2 Ngoc Martinez Other [employer] Other 03-11-2023 11:15-0400 Body weight 82.1 kg Ngoc Martinez Other [employer] Other 03-11-2023 11:15-0400 Diastolic blood pressure 74 mm[Hg] Ngoc Martinez Other [employer] Other 03-11-2023 11:15-0400 Respiratory rate 20 /min Ngoc Martinez Other [employer] Other 03-11-2023 11:15-0400 Systolic blood pressure 118 mm[Hg] Ngoc Martinez Other [employer] Other 12-02-2022 09:00-0400 Body height 175.26 cm Ngoc Martinez Other [employer] Other 12-02-2022 09:00-0400 Body mass index (BMI) [Ratio] 26.73 kg/m2 Ngoc Martinez Other [employer] Other 12-02-2022 09:00-0400 Body weight 82.1 kg Ngoc Martinez Other [employer] Other 12-02-2022 09:00-0400 Diastolic blood pressure 72 mm[Hg] Ngoc Martinez Other [employer] Other 12-02-2022 09:00-0400 Systolic blood pressure 112 mm[Hg] Ngoc Martinez Other [employer] Other 09-02-2022 08:45-0500 Body height 175.26 cm Ngoc Martinez Other [employer] Other 09-02-2022 08:45-0500 Body mass index (BMI) [Ratio] 27.61 kg/m2 Ngoc Martinez Other [employer] Other 09-02-2022 08:45-0500 Body weight 84.82 kg Ngoc Martinez Other [employer] Other 09-02-2022 08:45-0500 Diastolic blood pressure 84 mm[Hg] Ngoc Martinez Other [employer] Other 09-02-2022 08:45-0500 SaO2% (BldA) [Mass fraction] 99 % Ngoc Martinez Other [employer] Other 09-02-2022 08:45-0500 Systolic blood pressure 142 mm[Hg] Ngoc Martinez Other [employer] Other Encounters Encounter Date Encounter Type Care Provider Facility Start: 04-14-2024 End: 04-14-2024 Clinisync Result Encounter Katie Rory DO Work Phone: [facility] Unsolicited Start: 04-14-2024 End: 04-14-2024 Clinisync Result Encounter Katie Rory DO Work Phone: [facility] External [facility] Unsolicited Start: 04-14-2024 End: 04-14-2024 ambulatory [facility] Work Phone: Start: 04-14-2024 End: 04-14-2024 Patient encounter procedure [facility] Work Phone: Start: 04-14-2024 Non-patient / Non-visit [facility] Work Phone: Start: 01-17-2024 End: 01-17-2024 ambulatory [facility] Work Phone: Start: 01-17-2024 End: 01-17-2024 [facility] encounter [facility] Work Phone: Start: 01-12-2024 End: 01-12-2024 ambulatory KATIE RORY Not Available Start: 11-12-2023 Non-patient / Non-visit [facility] Work Phone: Start: 11-11-2023 ambulatory NGOC MARTINEZ [facility] Start: 11-02-2023 Non-patient / Non-visit [facility] Work Phone: Start: 11-02-2023 End: 11-02-2023 ambulatory KATIE RORY Not Available Start: 10-26-2023 End: 10-26-2023 ambulatory MD Ngoc Martinez Work Phone: [facility] Work Phone: Start: 10-26-2023 End: 10-26-2023 Patient encounter procedure MD Ngoc Martinez Work Phone: [facility] Work Phone: Start: 10-13-2023 End: 10-13-2023 ambulatory Ngoc Martinez Facility:[facility] Start: 10-13-2023 End: 10-13-2023 ambulatory MD Ngoc Martinez Work Phone: [facility] Work Phone: Start: 10-13-2023 End: 10-13-2023 Departed Referred MD Ngoc Martinez Work Phone: [facility] Start: 10-13-2023 End: 10-13-2023 ambulatory KATIE RORY Not Available Start: 09-28-2023 End: 09-28-2023 ambulatory [facility] Work Phone: Start: 09-28-2023 End: 09-28-2023 Patient encounter procedure [facility] Work Phone: Start: 09-21-2023 End: 09-21-2023 ambulatory KATIE RORY Not Available Start: 08-26-2023 Non-patient / Non-visit [facility] Work Phone: Start: 08-26-2023 Non-patient / Non-visit [facility] Work Phone: Start: 08-02-2023 End: 08-02-2023 ambulatory KATIE RORY Not Available Start: 07-29-2023 End: 07-29-2023 ambulatory Ngoc Martinez Other [employer] Other Start: 07-29-2023 Telephone encounter Ngoc Martinez [facility] Start: 07-26-2023 End: 07-26-2023 ambulatory NGOC MARTINEZ Facility:[facility] Start: 07-05-2023 Patient encounter procedure [facility] Start: 07-02-2023 End: 07-02-2023 ambulatory Ngoc Martinez Other [employer] Other Start: 07-02-2023 Office outpatient vi sit 15 minutes Ngoc Martinez [facility] Start: 07-01-2023 End: 07-01-2023 ambulatory Ngoc Martinez Other [employer] Other Start: 07-01-2023 Telephone encounter Ngoc Martinez [facility] Start: 06-11-2023 End: 06-11-2023 ambulatory Ngoc Martinez Other [employer] Other Start: 06-11-2023 Office outpatient vi sit 15 minutes Ngoc Martinez [facility] Start: 06-03-2023 End: 06-03-2023 ambulatory Ngoc Martinez Other [employer] Other Start: 06-03-2023 Telephone encounter Ngoc Martinez [facility] Start: 06-02-2023 End: 06-02-2023 ambulatory Ngoc Martinez Other [employer] Other Start: 06-02-2023 Telephone encounter Ngoc Martinez [facility] Start: 05-27-2023 End: 05-27-2023 ambulatory Ngoc Martinez Other [employer] Other Start: 05-27-2023 Telephone encounter Ngoc Martinez [facility] Start: 05-06-2023 End: 05-06-2023 ambulatory Ngoc Martinez Other [employer] Other Start: 05-06-2023 Telephone encounter Ngoc Martinez [facility] Start: 04-14-2023 End: 04-14-2023 ambulatory Ngoc Mratinez Other [employer] Other Start: 04-14-2023 Telephone encounter Ngoc Martinez [facility] Start: 04-08-2023 End: 04-08-2023 ambulatory Ngoc Martinez Other [employer] Other Start: 04-08-2023 Telephone encounter Ngoc Martinez [facility] Start: 04-01-2023 End: 04-01-2023 ambulatory Ngoc Martinez Other [employer] Other Start: 04-01-2023 Telephone encounter Ngoc Martinez [facility] Start: 03-11-2023 End: 03-11-2023 ambulatory Ngoc Martinez Other [employer] Other Start: 03-11-2023 Office outpatient vi sit 15 minutes Ngoc Martinez [facility] Start: 02-11-2023 End: 02-11-2023 ambulatory Ngoc Martinez Other [employer] Other Start: 02-11-2023 Telephone encounter Ngoc Martinez [facility] Start: 01-14-2023 End: 01-14-2023 ambulatory Ngoc Martinez Other [employer] Other Start: 01-14-2023 Telephone encounter Ngoc Martinez [facility] Start: 12-17-2022 End: 12-17-2022 ambulatory Ngoc Martinez Other [employer] Other Start: 12-17-2022 Telephone encounter Ngoc Martinez [facility] Start: 12-02-2022 End: 12-02-2022 ambulatory Ngoc Martinez Other [employer] Other Start: 12-02-2022 Office outpatient vi sit 15 minutes Ngoc Martinez [facility] Start: 11-20-2022 End: 11-20-2022 ambulatory Ngoc Martinez Other [employer] Other Start: 11-20-2022 Telephone encounter Ngoc Martinez [facility] Start: 10-27-2022 End: 10-27-[address] KATIE VALADEZ . Facility: Start: 10-22-2022 End: 10-22-2022 ambulatory Ngoc Martinez Other [employer] Other Start: 10-22-2022 Telephone encounter Ngoc Martinez [facility] Start: 09-24-2022 End: 09-24-2022 ambulatory Ngoc Martinez Other [employer] Other Start: 09-24-2022 Telephone encounter Ngoc Martinez [facility] Start: 09-02-2022 End: 09-02-2022 ambulatory Ngoc Martinez Other [employer] Other Start: 09-02-2022 Office outpatient vi sit 15 minutes Ngoc Martinez [facility] Start: 08-28-2022 End: 08-28-2022 ambulatory Ngoc Martinez Other [employer] Other Start: 08-28-2022 Telephone encounter Ngoc Martinez [facility] Start: 04-30-2022 Gynecological examination normal Ngoc Martinez Other [employer] Other Start: 04-20-2022 End: 04-20-2022 ambulatory MARIO RASHIDA . Facility: Start: 11-10-2021 End: 11-10-2021 Pre-procedure evaluation check Ngoc Martinez Other [employer] Other Start: 10-13-2018 End: 10-14-2018 Patient encounter procedure [facility] Start: 01-27-2018 Encounter for gynecological examination (general) (routine) without abnormal findings [facility] Start: 01-27-2018 End: 01-28-2018 Patient encounter procedure [facility] Procedures Date Procedure Procedure Detail Performing Clinician Start: 04-14-2024 Antibody screen Katie F azio DO Work Phone: Start: 04-14-2024 ALL BASIC METABOLIC PANEL Katie Rory DO Work Phone: Start: 04-14-2024 ALL TYPE AND SCREEN Cor ey Rory DO Work Phone: Start: 04-14-2024 [facility] LIVER PANEL Katie Valadez DO Work Phone: Start: 10-13-2018 Cul bact xcpt urine blood/stool aerobic isol JOSÉ SOSA Start: 01-27-2018 Cytopathology proced ure, preparation of smear, genital source JOSÉ SOSA Start: 11-30-2016 Pre-surgery evaluation Ngoc Martinez Other End: 09-12-2021 Depression screening Ngoc Michelle Other End: 12-09-2020 Diabetes mellitus screening Ngoc Martinez Other Plan of Treatment Date Care Activity Detail Author Start: 04-20-2024 Chart abstracting 04/20/2024 A bstract [facility] [address] [place] [id number] Katie Valadez, DO [address], [place] [id number] [facility] Start: 04-20-2024 End: 04-20-2024 Patient encounter procedure 04/20/2024 1:00 PM EDT Procedure Visit [facility] EX[facility] DEP Katie Valadez, DO [address], [place] [id number] [facility] EX[facility]P XR Lumbar spine 2 or 3 Views [facility] Payers Date Payer Category Payer Medicare (Managed Care) [facility] [id number] 2023 Unknown [id number] 2023 Medicare [id number] 2021 [place] [id number] 2019 Medicare [id number] 2016 Unknown [id number] 2014 Medicare [id number] 2013 Medicare [id number] 1981 Unknown [id number] [id number]. 173 1981 Unknown [id number] 2.16.840.1.764754.3.579.2. 173 1981 Unknown [id number] 2.16.840.1.905699.3.579.2. 593 1981 Unknown [id number] 2.16.840.1.958290.3.579.2. 593 1981 Unknown [id number] 2.16.840.1.490761.3.579.2. 1286 1981 Unknown [id number] 2.16.840.1.428671.3.579.2. 1286 1981 Unknown [id number] 2.16.840.1.342963.3.579.2. 1286 1981 Unknown [id number] 2.16.840.1.424107.3.579.2. 1286 1981 Unknown [id number] 2.16.840.1.458721.3.579.2. 1259 1981 Unknown [id number] 2.16.840.1.797528.3.579.2. 1259 1981 Unknown [id number] 2.16.840.1.116885.3.579.2. 1259 1981 Unknown [id number] 2.16.840.1.609615.3.579.2. 1259 1981 Unknown [id number] 2.16.840.1.312622.3.579.2. 1259 1958 Medicaid [id number] [id number] 1959 Medicare [id number] 2.16.840.1.197119.19 Social History Date Type Detail Facility Start: 04-13-2023 [facility] Start: 07-05-2023 Tobacco smoking stat [facility] Smoker (finding) [facility] Start: 1980 Sex Assigned At Female F [facility] Start: 02-02-2023 Tobacco smoking stat [facility] Ex-smoker [facility] History of tobacco use Cigarette Sm[facility] Start: 03-22-2024 Alcoholic beverage intake Current drinker of alcohol (finding) [facility] Start: 04-13-2023 History of Social function [facility] Start: 1980 Sex assigned at Not on file [facility] Clinical Notes 04-20-2022 to 07-29-2023 Note Date & Type Note Facility 07-29-2023 Evaluation note Encounter Date Diagnosis Assessment Notes Jul, Left shoulder pain (ICD-10 - M25.512) [facility] 01-29-2024 NoteHNO ID: [id number] Author: RONNY MARTINEZ MD Service: ? Author Type: Physician Type: Progress Notes Filed: 07/26/2023 14:37 Note Text: VIRTUAL VISIT PROGRESS NOTE This is a virtual visit using [employer] Video Visit. It required patient-provider interaction for the medical decision making as documented below. I have communicated my name and active licensure. The patient's identity and physical location were verified at the time of this visit. Either the patient or their legal wine sales representative has been informed of the [...] monitor thyroid function/TSH. RTC TBD. Ronny Martinez, [facility]01-05-2024 Evaluation note* Encounter Date Diagnosis Assessment Notes [...] than 5 days since start of symptoms [employer] Other 01-04-2024 Evaluation note* Encounter Date Diagnosis Assessment Notes Treatment Notes Treatment Clinical Notes Jun, Left shoulder pain (ICD-10 - M25.512) [employer] Other 12-15-2023 Evaluation note* Encounter Date Diagnosis Assessment Notes Treatment Notes Treatment Clinical Notes May, Acquired hypothyroidism (ICD-10 - E03.9) Pt advised referral was sent on 05/27. She is welcome to make her own appt a [facility] as well. Will check labs in meantime. May, Fatigue, unspecified type (ICD-10 - R53.83) Pt agrees to labs. May, Left shoulder pain (ICD-10 - M25.512) Lam agrees to decrease dose to 5/325 w next fill in June. Reviewed OARRS. [employer] Other 12-07-2023 Evaluation note* Encounter Date Diagnosis Assessment Notes Treatment Notes Treatment Clinical Notes May, Left shoulder pain (ICD-10 - M25.512) [employer] Other 11-30-2023 Evaluation note* Encounter Date Diagnosis Assessment Notes Treatment Notes Treatment Clinical Notes Apr, Acquired hypothyroidism (ICD-10 - E03.9) [employer] Other 11-09-2023 Evaluation note* Encounter Date Diagnosis Assessment Notes Treatment Notes Treatment Clinical Notes Apr, Left shoulder pain (ICD-10 - M25.512) [employer] Other 10-12-2023 Evaluation note* Encounter Date Diagnosis Assessment Notes Treatment Notes Treatment Clinical Notes Mar, Left shoulder pain (ICD-10 - M25.512) Mar, Acquired hypothyroidism (ICD-10 - E03.9) [employer] Other 10-05-2023 Evaluation note* Encounter Date Diagnosis Assessment Notes Treatment Notes Treatment Clinical Notes Mar, Left shoulder pain (ICD-10 - M25.512) [employer] Other 09-14-2023 Evaluation note* Encounter Date Diagnosis [...] of breath. . Increase fluids and rest. [id number] antipyretics as needed. Warning signs and symptoms reviewed with patient today. Patient to go immediately to the ER should she experience any of these. Patient to notify office should her symptoms persist and not improve. Patient verbalizes understanding and agrees to treatment plan. 14 Feb, 2023 Left shoulder pain (ICD-10 - M25.512) Chronic problem, take med as prescribed. Reviewed OARRS report. Followup in 3 months. [employer] Other 08-17-2023 Evaluation note* Encounter Date Diagnosis Assessment Notes Treatment Notes Treatment Clinical Notes Jan, Acute thoracic back pain, unspecified back pain laterality (ICD-10 - M54.6) [employer] Other 07-20-2023 Evaluation note* Encounter Date Diagnosis Assessment Notes Treatment Notes Treatment Clinical Notes Dec, Acute thoracic back pain, unspecified back pain laterality (ICD-10 - M54.6) [employer] Other 06-22-2023 Evaluation note* Encounter Date Diagnosis Assessment Notes Treatment Notes Treatment Clinical Notes Nov, Acute thoracic back pain, unspecified back pain laterality (ICD-10 - M54.6) [employer] Other 06-07-2023 Evaluation note* Encounter Date Diagnosis Assessment Notes Treatment Notes Treatment Clinical Notes Nov, Moderate persistent asthma without complication (ICD-10 - J45.40) Nov, Vomiting with nausea, not intractable (ICD-10 - R11.2) Nov, Neck pain (ICD-10 - M54.2) OARRS report processed and reviewed and shows no violations. Pt understands to use only as needed and consider dose reduction at next OV. [employer] Other 06-07-2023 Evaluation note* Encounter Date Diagnosis [...] and consider dose reduction at next OV. [employer] Other 04-27-2023 Evaluation note* Encounter Date Diagnosis Assessment Notes Treatment Notes Treatment Clinical Notes Sep, Acute thoracic back pain, unspecified back pain laterality (ICD-10 - M54.6) [employer] Other 03-08-2023 Evaluation note* Encounter Date Diagnosis [...] Will continue to decrease with next rx. [employer] Other 03-08-2023 Evaluation note* Encounter Date Diagnosis [...] as listed above for the breast area. [employer] Other 10-24-2022 NotePROCEDURE: XR FOREARM RT 2V HISTORY: Falls ; fell down stairs, right forearm pain COMPARISON: None. FINDINGS: BONES:Transverse fracture through mid ulnar diaphysis without displacement. Unremarkable radius. SOFT TISSUES:No visible soft tissue swelling. EFFUSION:None visible. OTHER: Negative. IMPRESSION: 1. Acute, nondisplaced mid ulnar diaphyseal fracture. Electronically authenticated by: EVERARDO PORTER Date: 2022-04-20 07:54[facility] note[facility] Other Evaluation note* Diagnosis Onset Date Resolution Status Thoracic back pain acute [facility] Work Phone: Evaluation note* Diagnosis Onset Date Resolution Status Thoracic back pain acute Acute lumbar back pain acute Thoracic back pain acute [facility] Work Phone: Evaluation note* Diagnosis Onset Date Resolution Status Acute lumbar back pain acute Thoracic back pain acute [facility] Work Phone: Evaluation note* Diagnosis Onset Date Resolution Status Fibromyalgia acute Thoracic back pain acute [facility] Work Phone: History general Narrative - Reported* Type Description Date Medical History Asthma Medical History Depression Medical History GERD Medical History Fibromyalgia Medical History Anxiety Surgical History Left wrist fracture repair 2013 Surgical History Gall Bladder 2001 Surgical History Skin Graft Hospitalization History See Hospitalization History [facility] [address] [facility] Other Summary Purpose Family History Relationship Condition [...] 1 Acquired hypothyroid ism (E03.9) Referral Organization [facility] fariha Referring Provider First Name Ngoc Referring Provider Last Name Michelle Referring Provider Specialty Family [facility] cine Referred Organization [facility] [address] [place], [place],[address] Referred Provider Specialty Endocrinolog y Referral Priority [...] lumbar back pa in Thoracic back pain Chief Complaint Fibromyalgia flare u p check up/pain Reason for Visit Fibromyalgia Thoracic back pain Additional Source Comments INFORMATION SOURCE (unrecogn ized section and content) DATE CREATED AUTHOR 10/16/2018 [facility] DATE CREATED AUTHOR AUTHOR'S ORGANIZ ATION 11/05/2022 [facility] DATE CREATED AUTHOR AUTHOR'S ORGANIZ ATION 07/27/2023 [facility] DATE CREATED AUTHOR AUTHOR'S ORGANIZ ATION 10/19/2023 [facility] DATE CREATED AUTHOR AUTHOR'S ORGANIZ ATION 11/13/2023 [facility] DATE CREATED AUTHOR AUTHOR'S ORGANIZ ATION 01/16/2024 [facility] EPIC REASON FOR VISIT (unrecogniz ed section and content) Prescriptions3 month Follow uprefill3 month Follow uprefillNo Information3 month Follow uprefill3 month Follow uprefillRefill3 month Follow upRefillsmessagethyroid labsrefillreferralNo InformationrefillMed Check UpRefillCOVID Positive- [phone] Care Teams (unrecognized sec tion and content) [...] Care Provider Active Start: August 26, 2023 Zuleyka Paul SANTA Attending Provider Active Start : August 26, 2023 Team Status: Inactive Member Role Status Dates Ngoc Martinez MD Primary Care Provide r, Attending Provider Active Start: September 28, 2023 End: September 28, 2023 Team Status: Inactive Member Role Status Dates Ngoc Martinez MD Primary Care Provider Active Start: October 13, 2023 End: October 13, 2023 Katie Valadez Attending Provider Active Start: 2023 End: October 13, 2023 Team Status: Active Member Role Status Dates Ngoc Martinez MD Primary Care Provider Active Start: April 14, 2024 Katie Valadez DO Attending Provider Active Start : April 14, 2024 Team Status: Inactive Member Role Status Dates Ngoc Martinez MD Primary Care Provide r, Attending Provider Active Start: April 14, 2024 End: April 14, 2024 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 [employer] provides no warranty or guarantee of the accuracy or completeness of information in this document.
[2024-05-16 08:40] LABS: HCG Quantitative <1 mIU/mL
--- NOTE | 2024-05-16 08:41 | PC.NURSE ---
0841- Small reddened area to eyelid of right eye and bridge of nose (left side).
[2024-05-16] MEDS: LACTATED RINGER'S SOLUTION 1,000 ML 50 ML IV ×2 (08:45→11:03)
[2024-05-16] MEDS: METRONIDAZOLE/SODIUM CHLORIDE 500 MG/100 ML PREMIX 100 MG IV (08:50)
[2024-05-16 09:07] LABS: Amphetamine Screen Urine NEGATIVE (NEGATIVE); Barbiturates Screen Urine NEGATIVE (NEGATIVE); Benzodiazepines Screen Urine NEGATIVE (NEGATIVE); Cannabinoid Screen Urine POSITIVE (NEGATIVE); Cocaine Screen Urine NEGATIVE (NEGATIVE); Methadone Screen Urine NEGATIVE (NEGATIVE); Methamphetamines Screen Urine NEGATIVE (NEGATIVE); Opiate Screen Urine NEGATIVE (NEGATIVE); Phencyclidine Screen Urine NEGATIVE (NEGATIVE); Tricyclic Antidepressant Urine NEGATIVE (NEGATIVE)
[2024-05-16 09:08] LABS: Buprenorphine Screen Urine NEGATIVE (NEGATIVE); Oxycodone Screen Urine POSITIVE (NEGATIVE)
[2024-05-16] MEDS: CIPROFLOXACIN 400 MG/200 ML D5W PREMIX 200 MG IV (09:44)
--- NOTE | 2024-05-16 12:21 | PM.ONB ---
Brief Operative Note Date of procedure: 05/16/24 Pre-op diagnosis general: menorrhagia, pelvic pain, dysmenorrhea, dyspareunia Post-op diagnosis: same as pre-op Procedure: NAME OF PROCEDURE: ? Robotic assisted laparoscopic hysterectomy with cystoscopy PROCEDURE:? The patient was taken back to the operating room, where she was prepped and draped in the normal sterile fashion after being placed in the dorsal lithotomy position.? Patient?s anesthesia was found to be adequate.? Surgical timeout was performed using two patient identifiers.? SCDs were on and in place.? Two grams of Ancef were given prior to the surgery.? Sterile Ricks catheter was inserted.? Standard size VCare was secured to the uterine cervix and the surgeon changed gloves.? Attention then was turned to the patient's abdomen, where a supraumbilical incision was then made.? Two S retractors were used to identify the patient?s fascia.? The fascia was then tented up using Neisha clamps and the patient?s fascia was incised sharply.? Patient?s abdomen was identified and entered bluntly.? The patient had the trocar placed and a pneumoperitoneum was obtained.? Approximately 4 liters of CO2 gas was used.? The camera was then placed through the trocar.? At this time, two robot trocars were placed in the patient?s left and right side, two hand widths from the midline, and this was placed under direct visualization.? Please note absent tubes were seen. The uterine ovarian ligament was identified and transected and ligated using the vessel sealer? The vessel sealer was carried down serially to the broad ligament, to the area of the bladder flap, which was then created anteriorly, and the uterine arteries were skeletonized and sealed using the vessel sealer.? The colpotomy was made using the monopolar cautery on cut, and this was carried circumferentially, posteriorly to anteriorly, until the uterus was amputated.? The specimen was then removed intact through the vagina, without difficulty.? The vagina was then closed using two running V-Loc in a non-lock fashion.? The robot was undocked.? The abdomen was desufflated.? The skin defects were closed using 4-0 Vicryl.? Please note, the fascia was closed using 0 Vicryl.? Sponge, lap and needle counts were correct x2.? Patient was taken to recovery room in stable condition.? The patient was awakened by Anesthesia first.? Patient tolerated procedure well.?? Anesthesia: JACINDA Surgeon: Yoandy Valadez Groundskeeping Maintenance Worker: Tootie Magallon Estimated blood loss (mL): 150 Pathology: other (uterus and cervix) Condition: stable Disposition: floor Urinary Catheter Management Urinary Catheter Management Urethral: Cath placed during this visit: no
[2024-05-16] MEDS: HYDROMORPHONE HCL 0.5 MG/0.5 ML SYRINGE IV ×4 (13:01→13:37)
[2024-05-16] MEDS: LACTATED RINGER'S SOLUTION 1,000 ML 125 ML IV (13:06)
[2024-05-16] MEDS: KETOROLAC TROMETHAMINE 30 MG/ML VIAL IVP (14:58)
[2024-05-16] MEDS: SIMETHICONE 80 MG TAB.CHEW PO (14:58)
[2024-05-16] MEDS: OXYCODONE HCL/ACETAMINOPHEN 5MG/325MG 2 TAB PO (14:58)
[2024-05-16] MEDS: CEFAZOLIN SODIUM/DEXTROSE,ISO 2 GM/50 ML PIGGYBACK IV (16:19)
[2024-05-16 18:37] LABS: Basophils Percent Auto 0.1 % (0.2-2.0); Hematocrit 41.7 % (36.0-48.0); Hemoglobin 13.6 g/dL (12.0-16.0); Immature Granulocytes Abs Auto 0.04 10^3/uL (0.00-0.03); Immature Granulocytes Pct Auto 0.4 % (0.0-0.5); Lymphocytes Absolute Auto 0.8 10^3/uL (1.2-3.8); Lymphocytes Percent Auto 7.3 % (20.5-60.0); Mean Corpuscular HGB Conc 32.6 g/dL (29.9-35.2); Mean Platelet Volume 10.4 fL (9.5-13.5); Monocytes Absolute Auto 0.7 10^3/uL (0.3-0.8); Neutrophils Absolute Auto 9.6 10^3/uL (1.4-6.5); Neutrophils Percent Auto 86.2 % (43.0-75.0); Platelet Count 228 10^3/uL (150-450); Red Blood Count 4.39 10^6/uL (4.20-5.40); White Blood Count 11.2 10^3/uL (4.0-11.0)
== END 2024-05-16 19:20 | disposition home or self-care (01) ==
LOC: SURGOUT 12:28 → MS 14:11
PROVIDERS: PCP Family Medicine; Visit Provider Obstetrics & Gynecology
PROC: (CPT 944; principal; 2024-05-16 09:10)
DX: N92.0 Excessive and frequent menstruation with regular cycle (principal); R10.2 Pelvic and perineal pain; N94.6 Dysmenorrhea, unspecified; N94.10 Unspecified dyspareunia; N80.03 Adenomyosis of the uterus; D25.1 Intramural leiomyoma of uterus
CPT/HCPCS: 58550; 36415; 80307; 84702; 85025; 88307; 94667; J0131; J0690; J0744; J1100; J1171; J1836; J1885; J2250; J2371; J2405; J2704; J3010

== ENCOUNTER 2024-10-10 11:47 | Outpatient (OUT) | payer OTHER, MEDICAID, SELFPAY ==
[2024-10-10 12:50] LABS: Basophils Absolute Auto 0.1 10^3/uL (0.0-0.1); Basophils Percent Auto 0.5 % (0.2-2.0); Eosinophils Absolute Auto 0.1 10^3/uL (0.0-0.7); Eosinophils Percent Auto 1.2 % (0.9-7.0); Hematocrit 40.5 % (36.0-48.0); Hemoglobin 13.3 g/dL (12.0-16.0); Immature Granulocytes Abs Auto 0.01 10^3/uL (0.00-0.03); Immature Granulocytes Pct Auto 0.1 % (0.0-0.5); Lymphocytes Absolute Auto 3.9 10^3/uL (1.2-3.8); Lymphocytes Percent Auto 41.7 % (20.5-60.0); Mean Corpuscular HGB Conc 32.8 g/dL (29.9-35.2); Mean Corpuscular Hemoglobin 30.9 pg (26.7-34.0); Mean Corpuscular Volume 94.2 fL (81.0-99.0); Mean Platelet Volume 10.2 fL (9.5-13.5); Monocytes Absolute Auto 0.7 10^3/uL (0.3-0.8); Monocytes Percent Auto 7.4 % (1.7-12.0); Neutrophils Absolute Auto 4.5 10^3/uL (1.4-6.5); Neutrophils Percent Auto 49.1 % (43.0-75.0); Platelet Count 301 10^3/uL (150-450); Red Cell Distribution Width 13.4 % (11.0-15.0); White Blood Count 9.2 10^3/uL (4.0-11.0)
== END 2024-10-10 11:48 | disposition home or self-care (01) ==
LOC: LAB 11:52
PROVIDERS: PCP Family Medicine; Visit Provider Internal Medicine
DX: J45.40 Moderate persistent asthma, uncomplicated (principal)
CPT/HCPCS: 36415; 82785; 85025

== ENCOUNTER 2024-11-06 09:07 | Outpatient (OUT) | payer OTHER, MEDICAID, SELFPAY ==
--- OUTSIDE RECORDS SUMMARY | 2024-11-06 09:14 | XMS_ITS | CCD ---
Author Organization [facility] Care Team Providers Care Dispatcher Radioactive Waste Disposal Name Role Phone JOSÉ SOSA Referring Unavailable ROYAL MARTINEZ Primary Care Unavailable JOSÉ SOSA Referring Unavailable ROYAL MARTINEZ Primary Care Unavailable Royal Martinez Unavailable MARIO CERVANTES Admitting Unavailable MICHELLE, DR ROYAL Lyle Primary Care Unavailable CHARLOTTE, DR VISH Mart Consulting Unavailable MARIO CERVANTES Attending Unavailable MARIO CERVANTES Consulting Unavailable RORY ., DR WILSON Attending Unavailable RORY ., DR WILSON Consulting Unavailable RORY ., DR WILSON Admitting Unavailable DR ROYAL MARTINEZ Primary Care Unavailable MD Royal Martinez Primary Care Provider [phone] Yoandy Valadez Attending Provider ROYAL MARTINEZ Referring Unavailable ROYAL MARTINEZ Primary Care Unavailable ROYAL MARTINEZ Referring Unavailable ROYAL MARTINEZ Primary Care Unavailable ROYAL MARTINEZ Referring Unavailable ROYAL MARTINEZ Primary Care Unavailable Royal Martinez MD Primary Care Provider Yoandy Valadez DO Attending Provider [phone] YOANDY VALADEZ Referring Unavailable YOANDY VALADEZ Attending Unavailable YOANDY VALADEZ Attending Unavailable YOANDY VALADEZ Attending Unavailable YOANDY VALADEZ Attending Unavailable YOANDY VALADEZ Attending Unavailable JENNIFER HOBBS Attending Unavailable JENNIFER HOBBS Attending Unavailable Royal Martinez MD Primary Care Provider [phone] Royal Martinez MD Unavailable DEEPA ZAYAS Referring Unavailable ROYAL MARTINEZ Primary Care Unavailable DEEPA ZAYAS Referring Unavailable ROYAL MARTINEZ Primary Care Unavailable Royal Martinez MD Primary Care Provider [phone] Damian Mckeon DO Emergency Provider [phone] Yoandy Valadez Attending Unavailable Yoandy Valadez Admitting Unavailable Royal Martinez Primary Care Unavailable Damian Mckeon Attending Unavailable Damian Mckeon Admitting Unavailable RONNY MARTINEZ Attending Unavailable SERRONNY BENITEZ Attending Unavailable Allergies Allergy Classification Reported Allergen(s) Allergy Type Date of Onset Reaction(s) Facility (20 sources) Acetaminophen / butalbital / Caffeine Drug Allergy 11-04-19 13 Unknown [facility] (20 sources) cyclobenzaprine; Translations: [Flexeril] Drug Allergy 12-26-19 13 Unknown [facility] (20 sources) Sertraline; Translations: [SERTRALINE] Drug Allergy 12-26-19 13 Unknown [facility] (20 sources) SUMAtriptan; Translations: [SUMATRIPTAN] Drug Allergy 11-04-19 13 Itching [facility] (20 sources) topiramate; Translations: [TOPIRAMATE] Drug Allergy 12-26-19 13 Unknown [facility] (20 sources) varenicline; Translations: [VARENICLINE] Drug Allergy 10-22-19 21 Unknown [facility] (1 source) Acetaminophen / butalbital / Caffeine Drug Allergy 12-26-19 13 [facility] (1 source) diphenhydrAMINE Drug Allergy 12-26-19 13 [facility] (1 source) Iodine (And Iodine Containting Drugs) Drug allergy (disorder) [facility] (3 sources) Plasmin Drug Allergy 12-26-19 13 Unknown [facility] (4 sources) Progesterone; Translations: [PROGESTERONE] Drug Allergy 07-14-19 15 [facility] (1 source) Sertraline Drug Allergy 12-26-19 13 [facility] (1 source) topiramate Drug Allergy 12-26-19 13 [facility] (1 source) traMADol Drug Allergy 06-15-20 16 [facility] (1 source) varenicline Drug Allergy [facility] (13 sources) Acetaminophen / butalbital / Caffeine / Codeine Drug Allergy Unknown [facility] Other (1 source) Contrast media Propensity to adverse reactions 09-11-19 17 Unknown [facility] Other (20 sources) Iodinated contrast media (substance) Drug allergy 07-26-19 24 Unknown [facility] Other (1 source) Allergies Reconciled Propensity to adverse reactions 03-31-20 21 Unknown [facility] Other (1 source) patient allergy list reviewed by nurse or physicia Propensity to adverse reactions 02-17-20 Comment:Done [facility] Other (13 sources) MRI DYE Propensity to adverse reactions 10-20-19 17 Unknown [facility] Other (13 sources) Chantix *PSYCHOTHERAPEUTIC AND NEUROLOGICAL AGENTS Propensity to adverse reactions Unknown [facility] Other (13 sources) Contrast Allergy PreMed Pack *CORTICOSTEROIDS* Propensity to adverse reactions Comment:MRI DYE [facility] Other (13 sources) Flexeril *MUSCULOSKELETAL THERAPY AGENTS* Propensity to adverse reactions Unknown [facility] Other (20 sources) Acetaminophen Drug Allergy 09-28-19 24 [facility] (20 sources) butalbital Drug Allergy 09-28-19 24 [facility] (20 sources) Caffeine Drug Allergy 09-28-19 24 [facility] (20 sources) cyclobenzaprine; Translations: [CYCLOBENZAPRINE] Drug Allergy 11-04-19 13 Unknown [facility] (12 sources) Iodinated Contrast Media; Translations: [IODINATED CONTRAST MEDIA] Allergy to substance 07-26-19 [facility] (11 sources) Chantix *PSYCHOTHERAPEUTIC AND Allergy to substance 09-28-19 [facility] Comment on above: Free Text Allergy: C hantix *PSYCHOTHERAPEUTIC AND NEUROLOGICAL AGENTS (11 sources) Contrast Allergy PreMed Pack * Allergy to substance 07-05-19 Comment:MRI DYE [facility] Comment on above: Free Text Allergy: C ontrast Allergy PreMed Pack *CORTICOSTEROIDS* (11 sources) Fioricet/Codeine Allergy to substance 09-28-19 Hives [facility] (3 sources) Contrast media; Translations: [DYE] Propensity to adverse reactions to drug (disorder) 10-22-19 [facility] (3 sources) Corticosteroids; Translations: [CORTICOSTEROIDS (GLUCOCORTICOIDS)] Propensity to adverse reactions to drug (disorder) 10-22-19 21 [facility] (20 sources) diphenhydrAMINE; Translations: [DIPHENHYDRAMINE] Drug Allergy 12-26-19 13 Other: See Comments [facility] (3 sources) SUMAtriptan; Translations: [SUMATRIPTAN SUCCINATE] Drug Allergy 12-01-19 17 Itching [facility] (20 sources) traMADol; Translations: [TRAMADOL] Drug Allergy 11-04-19 13 Unknown [facility] (3 sources) BUTALBITAL-ACETAMI NOPHEN-CAFF; Translations: [BUTALBITAL-ACETAM INOPHEN-CAFF] Propensity to adverse reactions to drug (disorder) 11-04-19 13 [facility] (3 sources) DIVALPROEX; Translations: [DIVALPROEX] Propensity to adverse reactions to drug (disorder) 12-03-19 17 [facility] (3 sources) IODINE AND IODIDE CONTAINING PRODUCTS; Translations: [IODINE AND IODIDE CONTAINING PRODUCTS] Propensity to adverse reactions to food (disorder) 10-22-19 [facility] (3 sources) OTHER; Translations: [OTHER] Propensity to adverse reactions (disorder) 10-22-19 [facility] (14 sources) Progesterone Drug Allergy 07-14-19 15 Swelling [facility] (14 sources) Topiramate Allergy to substance 12-26-19 13 [facility] (13 sources) Tltltlgepi-Srgb-Zz ff-Cod Drug Allergy 09-28-19 24 [facility] (15 sources) Fibrinolysin; Translations: [FIBRINOLYSIN] Allergy to substance 12-26-19 13 [facility] (14 sources) Ziigbtaunz-Dbsn-Uj ffeine Propensity to adverse reactions 11-25-19 23 [facility] (13 sources) Prednisone & Diphenhydramine Drug Allergy 07-05-19 [facility] (5 sources) Iodine I 131 Tositumomab Allergy to substance 07-06-19 [facility] (3 sources) Progesterone Drug Allergy 07-14-19 Swelling [facility] Medications Current Medications Medication Drug Class(es) Dates Sig (Normalized) Sig (Original) acetaminophen 325 mg / oxyCODONE hydrochloride 5 mg oral tablet (20 sources) Opioid Agonist Start: 10-20-2024 take 1 tablet by mouth once daily as needed for pain Oxycodone-Acetami nophen 5-325 mg tablet Active 1 TAB PO Daily as needed for pain October 20, 2024 Start: 09-19-2024 End: 10-20-2024 take 1 tablet by mouth once daily as needed for pain Oxycodone-Acetaminophen 5-325 mg tablet Discontinued 1 TAB PO Daily as needed for pain September 19, 2024 October 20, 2024 10:28am Start: 08-20-2024 End: 09-19-2024 take 1 tablet by mouth every twelve hours as needed for pain Oxycodone-Acetaminophen 5-325 mg tablet Discontinued 1 TAB PO Every 12 hours as needed for pain 40 August 20, 2024 September 19, 2024 12:49pm Start: 05-21-2024 End: 08-17-2024 take 1 tablet by mouth every twelve hours as needed for pain Oxycodone-Acetaminophen 5-325 mg tablet Discontinued 1 TAB PO Every 12 hours as needed for pain 50 July 21, 2024 August 17, 2024 12:34pm Start: 04-22-2024 End: 05-18-2024 take 1 tablet by mouth every twelve hours as needed for pain Oxycodone-Acetaminophen 5-325 mg tablet Discontinued 1 TAB PO Every 12 hours as needed for pain 60 April 22, 2024 May 18, 2024 1:41pm Start: 03-24-2024 End: 04-21-2024 take 1 tablet by mouth every twelve hours as needed for pain Oxycodone-Acetaminophen 5-325 mg tablet Discontinued 1 TAB PO Every 12 hours as needed for pain 60 March 24, 2024 April 21, 2024 12:34pm Start: 09-28-2023 End: 03-23-2024 take 1 tablet by mouth every twelve hours as needed for pain Oxycodone-Acetaminophen 5-325 mg tablet Discontinued 1 TAB PO Every 12 hours as needed for pain 60 February 24, 2024 March 23, 2024 1:41pm Start: 08-26-2023 End: 09-28-2023 take 1 tablet by mouth twice daily as needed for pain Oxycodone-Acetaminophen 7.5-325 mg table t Discontinued 1 TAB PO Twice daily as needed for pain 60 August 26, 2023 September 28, 2023 2:05pm Start: 07-30-2023 take 1 tablet by ledy th every twelve hours oxyCODONE-Acetaminophen 7.5-325 MG 1 tablet as needed Orally bid for 30 days Jul, Active Start: 07-02-2023 take 1 tablet by ledy th every twelve hours oxyCODONE-acetaminophen (PERCOCET) 7.5-3 25 mg tablet Take 1 tablet by mouth every 12 hours. 07/02/2023 Active Start: 07-02-2023 take 1 tablet by [...] MG tablet every 6 (six) hours. Active take 1 tablet by ledy th every six hours as needed for pain oxyCODONE-acetaminophen (PERCOCET) 7.5-3 25 mg per tablet Take 1 tablet by mouth every 6 (six) hours as needed for pain. 15/325mg Active 120 actuat budesonide 0.16 mg/actuat / formoterol fumarate 0.0045 mg/actuat metered dose inhaler (20 sources) Corticosteroid, beta2-Adrenergic Agonist Start: 09-01-2024 End: 09-01-2024 Budesonide-Formoterol (Symbicort) 160-4.5 mcg/actuation HFA aerosol inhaler Active 1 INH INHALATION Twice daily 10.2 September 01, 2024 10:43am Start: 09-28-2023 End: 05-18-2024 take 2 puff(s) by inhalation once daily Budesonide-Formoterol (Symbicort) 80-4.5 mcg/actuation HFA aerosol inhaler Discontinued 2 PUFF INHALATION Daily September 28, 2023 12:00am May 18, 2024 12:22pm FreeTextSi puffs Inhalation Once a day; Note: Source Status: Taking; Provider: Michelle Grossman ( ) budesonide-formo terol (SYMBICORT) 80-4.5 mcg/actuation inhaler Inhale as instructed every 24 hours. Active take 2 puff(s) by in halation in the morning budesonide-formoteroL (SYMBICORT) 160-4.5 mcg/actuation inhaler Inhale 2 puffs in the morning and 2 puffs before bedtime. Active take 2 puff(s) by in halation once daily Symbicort 80-4.5 MCG/ACT 2 puffs Inhalation Once a day Active take 2 puff(s) by in halation once daily Symbicort 80-4.5 MCG/ACT 2 puffs Inhalation Once a day Active buPROPion (20 sources) Aminoketone Start: 08-07-2024 take 1 tablet by mouth once daily Bupropion Hcl 300 mg tablet extended release 24 hr Active 0 .ROUTE .COMPLEX August 07, 2024 5:26pm TAKE 1 TABLET BY MOUTH DAILY Start: 08-26-2023 End: 08-07-2024 take 1 tablet by mouth once daily Bupropion Hcl 300 mg tablet extended release 24 hr Discontinued 300 MG PO Daily May 18, 2024 1:40pm August 07, 2024 5:27pm Start: 11-20-2022 take 1 tablet by ledy th every twenty-four hours buPROPion HCl ER (XL) 300 MG 1 tablet in the morning Orally Once a day for 90 days October, Active Start: 10-13-2018 take 1 tablet by ledy th every twenty-four hours buPROPion XL (WELLBUTRIN XL) 300 mg 24 hr tablet Take by mouth every 24 hours. 10/13/2018 Active Start: 09-30-2016 take 1 tablet by ledy th once daily buPROPion XL (WELLBUTRIN XL) 150 mg 24 hr tablet Indications: Tobacco dependency Take 1 tablet (150 mg total) by mouth daily. 30 tablet 6 09/30/2016 Active cholecalciferol 0.05 mg oral capsule (14 sources) Vitamin D take 1 capsule by mouth once daily cholecalciferol (Vitamin D-3) 50 MCG (1999 UT) capsule Take 2,000 Units by mouth Daily Active cosyntropin 0.25 mg injection (CORTROSYN) (1 source) Start: 10-29-19 End: 11-28-19 cosyntropin 0.25 mg injection (CORTROSYN) dicyclomine hydrochloride 20 mg oral tablet (7 sources) Anticholinergic take 1 tablet by mouth every eight hours as needed dicyclomine (BENTYL) 20 mg tablet Take 1 tablet (20 mg total) by mouth every 8 (eight) hours as needed. Active take 1 capsule by mo [facility] four times daily as needed Bentyl 10 mg 1 capsule Orally Four times a day as needed Not-Taking docosahexaenoic acid 200 mg oral capsule (3 sources) Start: 09-01-2024 Docosahexaenoi c Acid ( Dha) 200 mg capsule Active MG PO September 01, 2024 1:00am ferrous sulfate (14 sources) Start: 05-05-2023 take 1 tablet by mouth in the morning Ferrous Sulfate (IRON PO) Take 1 tablet by mouth in the morning. 05/05/2023 Active 12 hr guaiFENesin 600 mg extended release oral tablet (20 sources) Start: 10-26-2022 take 1 tablet by mouth every twelve hours in the morning Mucus Relief 600 MG 12 hr tablet Take 600 mg by mouth in the morning and 600 mg before bedtime. 10/26/2022 Active levothyroxine (20 sources) l-Thyrox ine Start: 09-18-2024 take 1 tablet by mouth once daily Levothyroxine 75 mcg tablet Active 0 .ROUTE .COMPLEX September 18, 2024 11:52am TAKE 1 TABLET BY MOUTH DAILY Start: 03-14-2024 End: 09-18-2024 take 1 tablet by mouth once daily Levothyroxine 75 mcg tablet Discontinued 0 .ROUTE .COMPLEX June 08, 2024 2:55pm September 18, 2024 11:52am TAKE 1 TABLET BY MOUTH DAILY Start: 07-01-2023 End: 03-14-2024 take 1 tablet by mouth once levothyroxine (SYNTHROID) 75 mcg tablet Take 1 tablet by mouth every afternoon. 07/01/2023 Active take 1 tablet by ledy th once daily Levothyroxine Sodium 75 MCG TAKE ONE TABLET BY MOUTH DAILY for 30 Active Magnesium (14 sources) take 1 capsule by mouth once daily Magnesium 400 MG capsule Take 400 mg by mouth Daily Active magnesium aspart,citrate,oxide (TRIPLE MAGNESIUM COMPLEX) 400 mg magnesium cap (2 sources) take 1 capsule by mouth once daily magnesium aspart,citrate,oxide (TRIPLE MAGNESIUM COMPLEX) 400 mg magnesium cap Take 400 mg by mouth once daily. Active Pre- (20 sources) Pre-Ruthy Active Vit-Fe Fumarate-FA ( Vitamins) 28-0.8 MG tablet (14 sources) Start: 09-21-2023 End: 09-20-2024 take 1 tablet by mouth once daily Vit-Fe Fumarate-FA ( Vitamins) 28-0.8 MG tablet Indications: Cystic acne Take 1 tablet by mouth Daily 30 tablet 3 09/21/2023 09/20/2024 Active VITAMIN PLUS LOW IRON 27 mg iron- 1 mg (2 sources) Start: 05-05-2023 take 1 tablet by mouth once daily in the morning VITAMIN PLUS LOW IRON 27 mg iron- 1 mg Take 1 tablet by mouth every morning. 05/05/2023 Active VITAMIN PLUS LOW IRON 27 mg iron- 1 mg tablet (1 source) Start: 10-10-2020 take 1 tablet by mouth in the morning VITAMIN PLUS LOW IRON 27 mg iron- 1 mg tablet Take 1 tablet by mouth in the morning. 10/10/2020 Active rimegepant 75 mg disintegrating oral tablet (20 sources) Start: 08-17-2024 take 1 tablet by mouth once daily as needed NURTEC ODT 75 mg disintegrating tablet Take 75 mg by mouth once daily as needed. 08/17/2024 Active Start: 04-19-2024 End: 09-19-2024 Rimegepant (Nurtec Odt) 75 m g tablet,disintegrating Discontinued 75 MG PO Every 48 hours as needed for migraine headache June 14, 2024 10:43am July 21, 2024 9:36am sulfamethoxazole 800 mg / trimethoprim 160 mg oral tablet (6 sources) Dihydrofolate Reductase Inhibitor Antibacterial, Sulfonamide Antimicrobial Start: 09-02-2022 take 1 tablet by mouth every twelve hours Bactrim DS 800-160 MG 1 tablet Orally Twice a day for 10 day(s) Aug, Active Tens Unit And Electrodes (3 sources) Start: 10-26-2023 Tens Unit And Electrodes Active 0 .Route October 26, 2023 12:00am As directed Tens Unit And Electrodes combo pack (6 sources) Start: 10-26-2023 Tens Unit And Electrodes combo pack Active 0 .Route October 26, 2023 12:00am As directed Start: 10-26-2023 Tens Unit And Electrodes combo pack Active 0 .Route October 25, 2023 11:00pm As directed 60 actuat tiotropium 0.54200 mg/actuat inhalation spray (1 source) Anticholinergic SPIRIVA RESPIMAT 1.25 mcg/actuation inhaler Inhale 2 puffs as instructed once daily. Active tiZANidine 4 mg oral tablet (20 sources) Central alpha-2 Adrenergic Agonist Start: 04-14-20 End: 10-21-19 take 1 tablet by mouth every twelve hours as needed Tizanidine 4 mg tablet Active 4 MG PO Every 12 hours as needed for muscle spasticity 60 October 20, 2024 10:23am Start: 09-28-2023 End: 04-14-2024 take 1 tablet by mouth once daily ZANAFLEX 4 mg tablet Take 4 mg by mouth once daily. 09/28/2023 Active take 1 tablet by ledy th every twelve hours Zanaflex 4 mg 1 tablet as needed Orally bid Not-Taking Completed/Discontinued Medications Medication Drug Class(es) Dates Sig (Normalized) Sig (Original) [id number] 200 actuat albuterol 0.09 mg/actuat metered dose inhaler (20 sources) beta2-Adrenergic Agonist Start: 09-28-2023 End: 05-18-2024 take 3 mL by inhalation every six hours as needed Albuterol Sulfate 2.5 mg /3 mL (0.083 %) solution for nebulization Discontinued 2.5 MG INHALATION Every 6 hours September 28, 2023 12:00am May 18, 2024 12:22pm FreeTextSi mL as needed Inhalation every 6 hrs; Note: Source Status: Taking; Refills: 3; Qty: 360 ml; Provider: Michelle Lyle Start: 09-28-2023 End: 09-01-2024 take 1 puff(s) by inhalation every four hours Albuterol Sulfate (Ventolin Hfa) 90 mcg/actuation HFA aerosol inhaler Discontinued 2 PUFF INHALATION Every 4 hours 8.5 June 14, 2024 10:38am September 01, 2024 10:47am Start: 05-27-2023 albuterol (2.5 MG/3ML) 0.083% nebulizer solution Take 2.5 mg by nebulization every 4 (four) hours if needed 05/27/2023 Active Start: 02-17-2019 take 2 puff(s) by in halation every four hours as needed albuterol HFA (PROVENTIL HFA, VENTOLIN HFA) 90 mcg/actuation inhaler Inhale 2 Puffs as instructed every 4 hours as needed. 02/17/2019 Active take 2.5 mg by inhal ation every four hours as needed albuterol (PROVENTIL) 2.5 mg /3 mL (0.083 %) nebulizer solution Inhale 2.5 mg as instructed every 4 hours as needed. Active Albuterol Sulfat e (2.5 MG/3ML) 0.083% 3 mL as needed Inhalation every 6 hrs for 30 days Active take 1 puff(s) by in halation every four hours as needed Ventolin HFA 108 (90 Base) MCG/ACT 1 puff as needed Inhalation every 4 hrs Active Albuterol Sulfat e (2.5 MG/3ML) 0.083% 3 mL as needed Inhalation every 6 hrs for 30 days Active ALPRAZolam 1 mg oral tablet (6 sources) Benzodiazepine take 1 tablet by mouth every eight hours Xanax 1 MG 1 tablet Orally Three times a day Not-Taking azithromycin 250 mg oral tablet (20 sources) Macrolide Antimicrobial Start: 06-14-20 End: 09-20-19 Azithromycin 250 mg tablet Discontinued 0 PO .COMPLEX 6 September 01, 2024 10:45am September 19, 2024 4:02pm For 250 mg dose pack: take 500 mg today (day 1), then 250 mg for 4 days (days 2-5) PO Start: 07-02-2023 Azithromycin 2 50 MG as directed Orally 2 tabs po today, then 1 tab daily x 4 more days for Jun, Active Start: 03-11-2023 Azithromycin 2 50 MG as directed Orally 2 tabs po today, then 1 tab daily x 4 more days for 5 Feb, Active cephalexin 500 mg oral capsule (20 sources) Cephalosporin Antibacterial Start: 09-28-2023 End: 09-28-2023 take 1 tablet by mouth twice daily Cephalexin 500 mg tablet Discontinued 500 MG PO Twice daily September 28, 2023 12:00am September 28, 2023 1:54pm Start: 06-25-2023 End: 10-20-2024 take 1 capsule by mouth twice daily Cephalexin 500 mg capsule Discontinued 500 MG PO Twice daily September 01, 2024 1:00am October 20, 2024 10:09am take 1 capsule by [facility] every six hours Keflex 250 MG 1 capsule Orally every 6 hrs Active cloNIDine hydrochloride 0.1 mg oral tablet (11 sources) Central alpha-2 Adrenergic Agonist Start: 07-13-2024 End: 10-13-2024 take 1 tablet by mouth once daily at bedtime Clonidine Hcl 0.1 mg tablet Discontinued 0.1 MG PO Daily at bedtime September 14, 2024 2:30pm October 13, 2024 8:25am fluticasone propionate 0.05 mg/actuat metered dose nasal spray (20 sources) Corticosteroid Start: 02-15-2024 End: 07-25-2024 take 2 spray(s) nasal route once daily Fluticasone Propionate 50 mcg/actuation spray,suspension Discontinued 0 .ROUTE .COMPLEX April 13, 2024 8:26am July 25, 2024 9:25am instill 2 (TWO) sprays IN EACH NOSTRIL DAILY Start: 12-27-2023 End: 02-15-2024 Fluticasone Propionate 50 mcg/actuation spray,suspension Discontinued 2 SPRAY INTRANASAL Daily December 27, 2023 9:44am February 15, 2024 8:37am Start: 09-28-2023 End: 12-27-2023 take 2 spray(s) nasal route once daily Fluticasone Propionate 50 mcg/actuation spray,suspension Discontinued INTRANASAL September 28, 2023 12:00am December 27, 2023 9:47am FreeTextSig: INSTILL 2 SPRAYS INTO EACH NOSTRIL DAILY FOR 30 DAYS; Note: Source Status: Taking; Refills: 3; Qty: 16 Gram; Provider: Michelle Lyle Start: 08-26-2023 take 1 spray(s) nasa l route once daily fluticasone (Flonase) 50 MCG/ACT nasal spray Administer 1 spray into each nostril Daily 08/26/2023 Active take 2 spray(s) nasa l route once daily fluticasone (FLONASE) 50 mcg/actuation nasal spray Use 2 Sprays in each nostril once daily. Active take 1 spray(s) nasa l route in the morning fluticasone (FLONASE) 50 mcg/actuation nasal spray Administer 1 spray into each nostril in the morning. Active Fluticasone Prop ionate 50 MCG/ACT INSTILL 2 SPRAYS INTO EACH NOSTRIL DAILY FOR 30 DAYS for 30 Active Fluticasone Prop ionate 50 MCG/ACT INSTILL 2 SPRAYS INTO EACH NOSTRIL DAILY FOR 30 DAYS for 30 Active gabapentin 300 mg oral capsule (6 sources) Anti-epileptic Agent Start: 07-15-2015 take 1 capsule by mouth every eight hours Gabapentin 300 MG 1 capsule Orally Three times a day for 30 day(s) Jun, Not-Taking ibuprofen 800 mg oral tablet (15 sources) Nonsteroidal Anti-inflammatory Drug Start: 06-13-2024 End: 10-20-2024 take 1 tablet by mouth every eight hours Ibuprofen 800 mg tablet Discontinued 800 MG PO Every 8 hours June 14, 2024 1:00am July 13, 2024 11:50am methylPREDNISolone 4 mg oral tablet (20 sources) Corticosteroid Start: 08-17-2024 End: 09-01-2024 Methylprednisolone 4 mg tablets,dose pack Discontinued 0 PO per package directions August 17, 2024 1:00am September 01, 2024 10:31am PO PER PKG DIR for 6 days Start: 06-14-2024 End: 07-13-2024 Methylprednisolone 4 mg tabl ets,dose pack Discontinued 0 PO per package directions June 14, 2024 1:00am July 13, 2024 11:51am PO PER PKG DIR for 6 days Start: 12-02-2022 methylPREDNISo lone 4 MG as directed Orally for 6 days Nov, Active montelukast 10 mg oral tablet (20 sources) Leukotriene Receptor Antagonist Start: 03-14-2024 End: 09-14-2024 take 1 tablet by mouth at bedtime Montelukast 10 mg tablet Discontinued 0 .ROUTE .COMPLEX June 08, 2024 2:55pm September 14, 2024 2:30pm TAKE 1 TABLET BY MOUTH AT BEDTIME Start: 03-14-2024 take 1 tablet by ledy th at bedtime Montelukast Active 0 .ROUTE .COMPLEX March 14, 2024 8:20am TAKE 1 TABLET BY MOUTH AT BEDTIME Start: 07-01-2023 End: 03-14-2024 take 1 tablet by mouth once montelukast (SINGULAIR) 10 mg tablet Take 1 tablet by mouth every afternoon. 07/01/2023 Active OXcarbazepine 300 mg oral tablet (6 sources) Anti-epileptic Agent take 1 tablet by mouth at bedtime Trileptal 300 MG 1 Tablet Orally at bedtime Not-Taking predniSONE 20 mg oral tablet (20 sources) Start: 09-02-19 End: 10-21-19 take 1 tablet by mouth twice daily Prednisone 20 mg tablet Discontinued 20 MG PO Twice daily September 01, 2024 1:00am October 20, 2024 10:09am Start: 01-17-2024 End: 05-18-2024 take 1 tablet by mouth twice daily Prednisone 20 mg tablet Discontinued 20 MG PO Twice daily April 14, 2024 1:21pm April 16, 2024 9:09am Start: 07-02-2023 take 3 tablets by mo uth once daily, then take 2 tablets by mouth once daily, then take 1 tablet by mouth once daily predniSONE (DELTASONE) 20 mg tablet TAKE 3 TABLETS BY MOUTH DAILY FOR 3 DAYS, then TAKE 2 TABLETS DAILY FOR 3 DAYS, then TAKE 1 TABLET DAILY FOR 3 DAYS 07/02/2023 Active Start: 03-11-2023 take 2 tablets by mo uth every twenty-four hours predniSONE 20 MG 2 tablets Orally Once a day for 5 days Feb, Active pregabalin 200 mg oral capsule (20 sources) Start: 01-17-2024 End: 10-19-2024 take 1 capsule by mouth twice daily Pregabalin 200 mg capsule Discontinued 200 MG PO Twice daily May 18, 2024 1:40pm June 19, 2024 9:31am Fill on or after 05/21. Start: 04-05-2023 End: 01-17-2024 take 1 capsule by mouth twice daily pregabalin (LYRICA) 150 mg capsule Take 150 mg by mouth two times a day. 07/01/2023 Active Start: 07-01-2022 take 1 capsule by mo ut every twelve hours Lyrica 150 MG 1 capsule Orally Twice a day for 30 days October, Active Start: 07-01-2022 take 1 capsule by mo uth every twenty-four hours Lyrica 150 MG 1 capsule Orally Once a day for 30 days Jun, Active take 2 capsules by m outh in the morning pregabalin (Lyrica) 75 MG capsule Take 150 mg by mouth in the morning and 150 mg before bedtime. Active take 1 capsule by mo uth in the morning, then take 1 capsule by mouth at bedtime pregabalin (LYRICA) 100 mg capsule Take 1 capsule (100 mg total) by mouth in the morning and 1 capsule (100 mg total) before bedtime. Active promethazine hydrochloride 25 mg oral tablet (20 sources) Phenothiazine Start: 09-28-2023 End: 05-18-2024 take 1 tablet by mouth three times daily as needed Promethazine 25 mg tablet Discontinued 25 MG PO Three times daily as needed September 28, 2023 12:00am May 18, 2024 12:15pm take 1 tablet by ledy th every eight hours as needed for nausea and vomiting promethazine (PHENERGAN) 25 mg tablet Ta ke 1 tablet (25 mg total) by mouth every 8 (eight) hours as needed for nausea or vomiting. Active take 1 tablet by ledy th three times daily as needed Phenergan 25 mg 1 Tablet By Mouth tid pr n for 10 days Active Problems Active Problems Problem Classification Problem Date Documented Da te Episodic/Chronic Abdominal pain (3 sources) Abdominal pain; Translations: [Unspecified abdominal pain] Onset: 03-03-2018 Resolved: 10-02-2020 03-22-2024 Episodic Anxiety disorders (20 sources) Anxiety disorder, unspecified; Translations: [Anxiety disorder] [...] HYPERTENSION] Onset: 04-21-2022 Chronic Headache; including migraine (20 sources) Migraine without aura, not refractory ; [...] [Other malaise and fatigue] Onset: 11-10-2016 Episodic Menopausal disorders (4 sources) Menopausal flushing; Translations: [Menopausal and female climacteric states] 07-21-2024 Chronic Menstrual disorders (20 sources) Excessive and frequent menstruation; Translations: [Excessive and frequent menstruation with regular cycle] Onset: 12-02-2015 02-02-2023 Chronic Mood disorders (7 sources) Major depressive disorder, single episode, unspecified; Translations: [Depression] Onset: 04-21-2022 05-18-2024 Chronic Nausea and vomiting (5 sources) Nausea with vomiting, unspecified; Translations: [Vomiting] Onset: 11-11-2018 Episodic Nonmalignant breast conditions (20 sources) Mastitis without abscess; Translations: [O/E-breast lump-upper out-quad] Onset: 07-10-2013 Episodic Osteoporosis (1 source) Primary osteoporosis; Translations: [Age-related osteoporosis without current pathological fracture] Chronic Other aftercare (20 sources) High risk drug monitoring status; Translations: [intermediate (current) use of opiate analgesic] Episodic Other aftercare (2 sources) Postoperative visit; Translations: [Encounter for other specified surgical aftercare] 07-06-2024 Episodic Other complications of ; puerperium affecting management of mother (1 source) Galactorrhea not associated with childbirth; Translations: [Galactorrhea] Episodic Other complications of (15 sources) Maternal obesity complicating , childbirth and the puerperium, antepartum; Translations: [Obesity complicating , unspecified trimester] Onset: 10-29-2020 02-02-2023 Chronic Other complications of (2 sources) High risk ; Translations: [Supervision of high risk , unspecified, unspecified trimester] Onset: 10-07-2020 Resolved: 10-15-2020 Episodic Other connective tissue disease (8 sources) Fibromyalgia; Translations: [Fibromyalgia] 11-26-2023 Episodic Other connective tissue disease (11 sources) Fibromyalgia; Translations: [Myalgia and myositis, unspecified] 01-17-2024 Episodic Other female genital disorders (15 sources) Abnormal uterine bleeding; Translations: [Abnormal uterine and vaginal bleeding, unspecified] Onset: 02-02-2023 02-02-2023 Chronic Other female genital disorders (1 source) Pain in female genitalia on intercourse; Translations: [Unspecified dyspareunia] 03-22-2024 Chronic Other gastrointestinal disorders (1 source) Irritable bowel syndrome with diarrhea; Translations: [Irritable bowel syndrome with diarrhea] Chronic Other nervous system disorders (1 source) Sensory disorder of smell and/or taste; Translations: [Unspecified disturbances of smell and taste] Episodic Other non-traumatic joint disorders (14 sources) Derangement of right shoulder joint; Translations: [Other [...] Chronic Other nutritional; endocrine; and metabolic disorders (15 sources) Obesity; Translations: [Obesity, unspecified] Onset: 11-10-2021 02-02-2023 Chronic Other screening for suspected conditions (not mental disorders or infectious disease) (20 sources) Encounter for screening for malignant neoplasm of cervix; Translations: [Abnormal findings on diagnostic imaging of breast] Onset: 11-11-2018 Resolved: 10-15-2020 Episodic Other skin disorders (1 source) Acne vulgaris; Translations: [Acne vulgaris] Episodic Other upper respiratory disease (1 source) Seasonal allergic rhinitis; Translations: [Other seasonal allergic rhinitis] Onset: 12-21-2018 Chronic Other upper respiratory disease (15 sources) Allergic rhinitis; Translations: [Other allergic rhinitis] Onset: 09-30-2016 02-02-2023 Chronic Other upper respiratory infections (7 sources) Acute maxillary sinusitis; Translations: [Acute recurrent maxillary sinusitis] Onset: 02-02-2017 06-15-2024 Episodic Otitis media and related conditions (4 sources) Otitis media of right ear; Translations: [Otitis media, unspecified, right ear] 07-21-2024 Episodic Residual codes; unclassified (2 sources) Tobacco user; [...] unspecified; Translations: [Pain, unspecified] Onset: 11-11-2023 Episodic Residual codes; unclassified (2 sources) Flushing; Translations: [Flushing] 07-25-2024 Episodic Spondylosis; intervertebral disc disorders; other back problems (20 sources) Neck pain; Translations: [Cervicalgia] Onset: 07-01-2015 Episodic Substance-related disorders (20 sources) Tobacco user; Translations: [Nicotine dependence, cigarettes, in remission] Onset: 09-30-2016 01-10-2023 Chronic Thyroid disorders (20 sources) Hypothyroidism; Translations: [Hypothyroidism, unspecified] Onset: 02-02-2023 Chronic Unclassified (1 source) Long-term current use of drug therapy; Translations: [Long-term (current) use of other medications] Onset: 10-04-2014 Past or Other Problems Problem Classification Problem Date Documented Da te Episodic/Chronic Abdominal hernia (15 sources) Umbilical hernia; Translations: [Umbilical hernia without obstruction or gangrene] Onset: 02-02-2023 02-02-2023 Episodic Acute bronchitis (1 source) Acute bronchitis; [...] ] Onset: 06-16-2016 Episodic Headache; including migraine (14 sources) Headache; Translations: [Headache] Onset: 08-30-2012 02-02-2023 Episodic Hemorrhage during ; abruptio placenta; placenta previa (16 sources) Placenta previa without hemorrhage; Translations: [Low lying placenta NOS or without hemorrhage, unspecified trimester] Onset: 10-29-2020 02-02-2023 Episodic Mood disorders (1 source) Mood disorders Onset: 01-05-2024 01-05-2024 Other aftercare (1 source) Other nursing home (current) drug therapy; Translations: [OTH INTERMEDIATE CURRENT DRUG THERAPY] Onset: 04-21-2022 Episodic Other aftercare (15 sources) Long-term current use of inhaled steroid; Translations: [intermediate (current) use of inhaled steroids] Onset: 02-02-2023 [...] unspecified] Resolved: 05-06-2021 Episodic Other complications of (16 sources) Abnormal findings on screening of mother; Translations: [Abnormal hematological finding on screening of mother] Onset: 10-13-2020 Resolved: 05-06-2021 02-02-2023 Episodic Other complications of (15 sources) Asthma; Translations: [Diseases of the respiratory system complicating , unspecified trimester] Onset: 10-29-2020 02-02-2023 Episodic Other complications of (15 sources) Depressive disorder in mother complicating ; Translations: [Other mental disorders complicating , unspecified trimester] Onset: 02-02-2023 02-02-2023 Episodic Other complications of (15 sources) Tobacco smoking in mother complicating ; Translations: [Smoking (tobacco) complicating , unspecified trimester] Onset: 09-30-2016 02-02-2023 Episodic Other complications of (1 source) Multigravida of advanced maternal age; Translations: [Supervision of elderly multigravida, unspecified trimester] Onset: 10-29-2020 10-29-2020 Episodic Other connective tissue disease (3 sources) Pain in right arm; Translations: [PAIN IN RIGHT ARM] Onset: 04-20-2022 Episodic Other connective tissue disease (1 source) Spasm; Translations: [Spasm of muscle] Onset: 01-26-2014 Episodic Other connective tissue disease (14 sources) Pain in limb; Translations: [Pain in unspecified limb] Onset: 08-30-2012 02-02-2023 Episodic Other eye disorders (1 source) Exotropia; Translations: [Unspecified exotropia] Onset: 07-10-2013 Episodic Other gastrointestinal disorders (1 source) Diarrhea; Translations: [Diarrhea, unspecified] Onset: 05-07-2014 Episodic Other injuries and conditions due to external causes (1 source) History of fall; Translations: [History of falling] Resolved: 09-12-2021 Episodic Other lower respiratory disease (14 sources) Chronic cough; Translations: [Chronic cough] Onset: 09-30-2016 02-02-2023 Episodic Other nervous system disorders (15 sources) H/O: migraine; Translations: [Personal history of other diseases of the nervous system and sense organs] Onset: 10-29-2020 02-02-2023 Episodic Other nervous system disorders (14 sources) Disorder of smell; Translations: [Unspecified disturbances of smell and taste] Onset: 02-02-2023 02-02-2023 Episodic Other non-traumatic joint disorders (1 source) Joint effusion of ankle AND/OR foot; Translations: [Effusion of ankle and foot joint] Onset: 12-05-2015 Episodic Other non-traumatic joint disorders (1 source) Pain in wrist; Translations: [Pain in left wrist] Onset: 11-05-2014 Episodic Other nutritional; endocrine; and metabolic disorders (15 sources) Abnormal weight gain; Translations: [Abnormal weight gain] Onset: 09-12-2021 02-02-2023 Episodic Other and delivery including normal (1 source) test positive; Translations: [Encounter for test, result positive] Resolved: 10-15-2020 Episodic Other skin disorders (15 sources) Acne; Translations: [Acne, unspecified] Onset: 02-02-2023 02-02-2023 Episodic Other skin disorders (1 source) Folliculitis; Translations: [Follicular disorder, unspecified] Onset: 02-16-2019 Episodic Other skin disorders (14 sources) Cystic acne; Translations: [Acne vulgaris] Onset: 02-02-2023 02-02-2023 Episodic Residual codes; unclassified (1 source) Edema; [...] weeks gestation of ] Resolved: 12-18-2020 Episodic Residual codes; unclassified (1 source) Other general symptoms and signs; Translations: [Other general symptoms] 01-05-2024 Episodic Screening and history of mental health and substance abuse codes (15 sources) Personal history of nicotine dependence; Translations: [...] Test Name Value Interpretation Reference Range Facility HISTORY PHYSICALon HISTORY PHYSICAL HNO ID: [id number] Author: INDU MCKEON LPN Service: ? Author Type: LICENSED NURSE Type: H&P Filed: 10/28/2024 18:07 Note Text: Labs 10/11/2024 [facility] ACTH Plas-mCncon 10-11-2024 Corticotropin (P) [Mass/Vol] 5.0 pg/mL Low 7.2-63.3 [facility] Comment on above: Order Comment: Speci men Type: BLOOD SPECIMEN Ordering Facility: [facility] Address: [address] [place] [address] Result Comment: ACTH Reference Range: 7-10 am: 7.2 - 63.3 pg/mL Performed By: #### 2 141-0 #### [facility] CLIA [id number] [address] [place] [address] [place] Cortis SerPl-mCncon 10-12-19 25 Cortisol [Mass/Vol] 5.3 ug/dL Normal 4.8-19.5 [facility] Comment on above: Order Comment: Speci men Type: BLOOD SPECIMEN Ordering Facility: [facility] Address: [address] [place] [address] Result Comment: Prov ided reference range is from 6-10 AM sample collection time. Cortisol Reference Range: 6-10 AM = 4.8-19.5 ug/dL, 4-8 PM = 2.5-11.9 ug/dL Performed By: #### 2 143-6, 3016-3 #### [facility] CLIA [id number] [address] [place] [address] [place] THYROID PEROXIDASE ANTIBODYo n 10-11-2024 TPO Ab Qn [IU]/mL Normal <5.6 [facility] Comment on above: Order Comment: Jarrett wong Type: BLOOD SPECIMEN Ordering Facility: [facility] Address: [address] [place] [address] Result Comment: Thyr oid Peroxidase Antibody test is used as an aid in diagnosis of autoimmune thyroid disease. Clinical correlation is required. Performed By: #### M ICRO #### [facility] CLIA [id number] [address] [place] [address] [place] TSH SerPl-aCncon 10-11-2024 TSH Qn 1.140 m[IU]/L Normal 0.270-4.20 0 [facility] Comment on above: Order Comment: Jarrett wong Type: BLOOD SPECIMEN Ordering Facility: [facility] Address: [address] [place] [address] Result Comment: If t he patient is , TSH reference range varies by gestational period: First Trimester (weeks 9-12): 0.180-2.990 mIU/L Second Trimester: 0.110-3.980 mIU/L Third Trimester: 0.480-4.710 mIU/L Willie Gill et al. A Practical Approach for the Verifications and Determination of Site- and Trimester-Specific Reference Intervals for Thyroid Function tests in . Thyroid, 2019:29:3:412-420. Garett Lyle, et al. 2017 Guidelines of the [place] Thyroid Association for the Diagnosis and Management of Thyroid Disease during and the . Thyroid, 2017:27:3:315-389. Performed By: #### 2 143-6, 6-3 #### [facility] CLIA [id number] [address] [place] [address] [place] Basophils Auto (Bld) [#/Vol] on 10-10-2024 Basophils (Bld) [#/Vol] Automated basophil count 0.0-0.1 [facility] Basophils/100 WBC Auto (Bld) on 10-10-2024 Basophils/100 WBC (Bld) Automated basophil % 0. 2-2.0 [facility] Eosinophils/100 WBC Auto (Bl d)on 10-10-2024 Eosinophils/100 WBC (Bld) Automated eosinophil % 0.9-7.0 [facility] Erythrocyte distribution wid th Auto (RBC) [Ratio]on 10-10-2024 Erythrocyte distribution width (RBC) [Ratio] Erythrocyte distribution width [Ratio] by Automated count 11.0-15.0 [facility] Hematocrit Auto (Bld) [Volum e fraction]on 10-10-2024 Hematocrit (Bld) [Volume fraction] Hematocrit [Volume Fraction] of Blood by Automated count 36.0-48.0 [facility] Hemoglobin [Mass/volume] in Bloodon 10-10-2024 Hemoglobin (Bld) [Mass/Vol] Hemoglobin [Mass/volume] in Blood 12.0-16.0 [facility] IgE [Units/volume] in Serum or Plasmaon 10-10-2024 IgE Qn IgE [Units/volume] i n Serum or Plasma 6-495 [facility] Comment on above: Performed at: [address] [id number] Director: Ragini Enriquez MD, Phone: [phone] Laboratory - Hematology and Cell countson 10-10-2024 Immature granulocytes/100 WBC (Bld) 0.1 % 0.0-0.5 [facility] Leukocytes [#/volume] correc gem for nucleated erythrocytes in Blood by Automated counon 10-10-2024 WBC corrected for nucl RBC Auto (Bld) [#/Vol] Leukocytes [#/volume] corrected for nucleated erythrocytes in Blood by Automated coun 4.0-11.0 [facility] Lymphocytes Auto (Bld) [#/Vo l]on 10-10-2024 Lymphocytes (Bld) [#/Vol] Lymphocytes [#/volume] in Blood by Automated count High 1.2-3.8 [facility] Lymphocytes/100 WBC Auto (Bl d)on 10-10-2024 Lymphocytes/100 WBC (Bld) Lymphocytes/100 leukocytes in Blood by Automated count 20.5-60.0 [facility] MCH Auto (RBC) [Entitic mass ]on 10-10-2024 MCH (RBC) [Entitic mass] MCH [Entitic mass] by Automated count 26.7-34.0 [facility] MCHC Auto (RBC) [Mass/Vol]on 10-10-2024 MCHC (RBC) [Mass/Vol] MCHC [Mass/volume] by Automated count 29.9-35.2 [facility] MCV Auto (RBC) [Entitic vol] on 10-10-2024 MCV (RBC) [Entitic vol] MCV [Entitic vol ume] by Automated count 81.0-99.0 [facility] Monocytes Auto (Bld) [#/Vol] on 10-10-2024 Monocytes (Bld) [#/Vol] Automated blood monocyte count 0.3-0.8 [facility] Monocytes/100 WBC Auto (Bld) on 10-10-2024 Monocytes/100 WBC (Bld) Automated monocyte % 1. 7-12.0 [facility] Neutrophils Auto (Bld) [#/Vo l]on 10-10-2024 Neutrophils (Bld) [#/Vol] Neutrophils [#/volume] in Blood by Automated count 1.4-6.5 [facility] Neutrophils/100 WBC Auto (Bl d)on 10-10-2024 Neutrophils/100 WBC (Bld) Automated neutrophil % 43.0-75.0 [facility] No Panel Informationon 10-10 Eosinophils # (Auto) 0.1 10 3/uL 0.0-0.7 [facility] Immature Granulocyte # (Auto) 0.01 10 3/uL 0.00-0.03 [facility] Platelet mean volume Auto (B ld) [Entitic vol]on 10-10-2024 Platelet mean volume (Bld) [Entitic vol] Platelet mean volume [Entitic volume] in Blood by Automated count 9.5-13.5 [facility] Platelets Auto (Bld) [#/Vol] on 10-10-2024 Platelets (Bld) [#/Vol] Platelets [#/vol ume] in Blood by Automated count 150-450 [facility] RBC Auto (Bld) [#/Vol]on RBC (Bld) [#/Vol] Erythrocytes [#/volu me] in Blood by Automated count 4.20-5.40 [facility] MAMM DIAGNOSTIC BILATERAL W CADon 09-08-2024 MAMM DIAGNOSTIC BILATERAL W CAD MAMM DIAGNOSTIC BILATERAL W CAD ANA MOORE 1980 [id number], [id number] EXAM: MAMM DIAGNOSTIC BILATERAL W CAD, US BREAST LT LIMITED, 09/08/2024 1:12 PM CLINICAL INDICATIONS: Mass of upper outer quadrant of left breast; Inversion of left nipple, COMPARISON: Mammogram and ultrasound 08/23/2022, mammogram 12/16/2022, 09/24/2016 TECHNIQUE: Bilateral digital tomosynthesis MLO and CC views of the breasts were obtained, with creation of synthetic 2D views. Computer aided detection was utilized. FINDINGS: The breasts are heterogeneously dense, which may obscure small masses. A radiopaque marker is placed over the area of palpable concern. There is no underlying mammographic abnormality. Targeted ultrasound will be performed at this location. There are no suspicious masses, calcifications, or areas of architectural distortion. Minimally inverted left nipple unchanged compared to mammogram 2022. Left Breast Ultrasound, Limited TECHNIQUE: Multiple real-time bustos-scale images of the left breast in the 12 o'clock axis were performed. Color Doppler was utilized to assess vascular flow. FINDINGS: There is no focal mass, architectural distortion or abnormal vascularity visualized. Dense breast tissue is visualized at this location. COMBINED IMPRESSION: No mammographic or sonographic evidence of malignancy. No suspicious abnormality at the area of palpable concern. BI-RADS: BI-RADS 2 - Benign RECOMMENDATION: Routine screening mammogram in 1 year. Due to the density and/or complexity of breast tissue on mammography, Molecular Breast Imaging can be considered as a supplement to annual screening mammography. MBI can be used to help detect mammographically occult cancers in dense breasts. RISK ASSESSMENT: TC Lifetime risk: 11.5%. The patient's reported personal and family medical history was used calculate their Tyrer-Cuzick lifetime risk of malignancy. Scores less than 20% are not considered high risk per ACR guidelines and patient should continue with the above recommendation. Patient was given the results before leaving the department. Finalized by Cathryn Redding MD on 09/08/2024 1:58 PM 2 c MAMM 1 YR Normal [facility] US BREAST LT LIMITEDon 09-08 US BREAST LT LIMITED US BREAST LT LIMITE D ANA HOLM BRIAN 1980 [id number], [id number] EXAM: MAMM DIAGNOSTIC BILATERAL W CAD, US BREAST LT LIMITED, 09/08/2024 1:12 PM CLINICAL INDICATIONS: Mass of upper outer quadrant of left breast; Inversion of left nipple, COMPARISON: Mammogram and ultrasound 08/23/2022, mammogram 12/16/2022, 09/24/2016 TECHNIQUE: Bilateral digital tomosynthesis MLO and CC views of the breasts were obtained, with creation of synthetic 2D views. Computer aided detection was utilized. FINDINGS: The breasts are heterogeneously dense, which may obscure small masses. A radiopaque marker is placed over the area of palpable concern. There is no underlying mammographic abnormality. Targeted ultrasound will be performed at this location. There are no suspicious masses, calcifications, or areas of architectural distortion. Minimally inverted left nipple unchanged compared to mammogram 2022. Left Breast Ultrasound, Limited TECHNIQUE: Multiple real-time bustos-scale images of the left breast in the 12 o'clock axis were performed. Color Doppler was utilized to assess vascular flow. FINDINGS: There is no focal mass, architectural distortion or abnormal vascularity visualized. Dense breast tissue is visualized at this location. COMBINED IMPRESSION: No mammographic or sonographic evidence of malignancy. No suspicious abnormality at the area of palpable concern. BI-RADS: BI-RADS 2 - Benign RECOMMENDATION: Routine screening mammogram in 1 year. Due to the density and/or complexity of breast tissue on mammography, Molecular Breast Imaging can be considered as a supplement to annual screening mammography. MBI can be used to help detect mammographically occult cancers in dense breasts. RISK ASSESSMENT: TC Lifetime risk: 11.5%. The patient's reported personal and family medical history was used calculate their Tyrer-Cuzick lifetime risk of malignancy. Scores less than 20% are not considered high risk per ACR guidelines and patient should continue with the above recommendation. Patient was given the results before leaving the department. Finalized by Cathryn Redding MD on 09/08/2024 1:58 PM 2 c MAMM 1 YR Normal [facility] HISTORY PHYSICALon HISTORY PHYSICAL HNO ID: [id number] Author: INDU MCKEON LPN Service: ? Author Type: LICENSED NURSE Type: H&P Filed: 08/25/2024 23:36 Note Text: Patient states she was diagnosed shortly after her son was born a few years ago. States she had labs then but wasn't sure if labs were needed for today's appointment. Normal [facility] ALL CBC WITH AUTO DIFFon BASOPHILS ABSOLUTE AUTO 0 [facility] Basophils/100 WBC (Bld) 0.4 % 0.2 - 2.0 % [facility] Eosinophils/100 WBC (Bld) 4.3 % 0.9 - 7.0 % [facility] Erythrocyte distribution width (RBC) [Ratio] 13.2 % 11.0 - 15.0 % [facility] Hematocrit (Bld) [Volume fraction] 44.1 % 36.0 - 48.0 % [facility] Hemoglobin (Bld) [Mass/Vol] 14.6 g/dL 12.0 - 16.0 g/dL [facility] IMMATURE GRANULOCYTES ABS AUTO 0.01 [facility] Immature granulocytes/100 WBC (Bld) 0.1 % 0.0 - 0.5 % [facility] Interpretation and review of laboratory results Abnormal [facility] LYMPHOCYTES ABSOLUTE AUTO 3.3 [facility] Lymphocytes/100 WBC (Bld) 47.4 % 20.5 - 60.0 % [facility] MCH (RBC) [Entitic mass] 31.4 pg 26.7 - 34.0 pg [facility] MCHC (RBC) [Mass/Vol] 33.1 g/dL 29.9 - 35.2 g/dL [facility] MCV (RBC) [Entitic vol] 94.8 fL 81.0 - 99.0 fL [facility] MONOCYTES ABSOLUTE AUTO 0.7 N [facility] Monocytes/100 WBC (Bld) 10.3 % 1.7 - 12.0 % [facility] NEUTROPHILS ABSOLUTE AUTO 2.6 [facility] Neutrophils/100 WBC (Bld) 37.5 % Low 43.0 - 75.0 % [facility] Platelet mean volume (Bld) [Entitic vol] 10.4 fL 9.5 - 13.5 fL [facility] TBH EO # 0.3 [facility] TBH PLT 266 [facility] TB RBC 4.65 [facility] TB WBC 6.9 [facility] Basophils Auto (Bld) [#/Vol] on 05-16-2024 Basophils (Bld) [#/Vol] Automated basophil count 0.0-0.1 [facility] Basophils/100 WBC Auto (Bld) on 05-16-2024 Basophils/100 WBC (Bld) Automated basophil % Low 0. 2-2.0 [facility] Buprenorphine [Presence] in Urineon 05-16-2024 Buprenorphine Ql (U) Buprenorphine [Pres ence] in Urine NEGATIVE [facility] Comment on above: DRUG CLASS TEST SYST EM CUT-OFF CONCENTRATIONS ARE ASFOLLOWS:AMP (Amphetamine): 500 ng/mLBAR (Barbiturates): 200 ng/mLBZO (Benzodiazepines): 150 ng/mLBUP (Buprenorphine): 10 ng/mLCOC (Cocaine): 150 ng/mLmAMP (Methamphetamine): 500 ng/mLMTD (Methadone): 200 ng/mLOPI (Opiates): 100 ng/mLOXY (Oxycodone): 100 ng/mLPCP (Phencyclidine): 25 ng/mLTHC (Cannabinoids): 50 ng/mLTCA (Trycyclic Antidepressants): 300 ng/mL Eosinophils/100 WBC Auto (Bl d)on 05-16-2024 Eosinophils/100 WBC (Bld) Automated eosinophil % Low 0.9-7.0 [facility] Erythrocyte distribution wid th Auto (RBC) [Ratio]on 05-16-2024 Erythrocyte distribution width (RBC) [Ratio] Erythrocyte distribution width [Ratio] by Automated count 11.0-15.0 [facility] Hematocrit Auto (Bld) [Volum e fraction]on 05-16-2024 Hematocrit (Bld) [Volume fraction] Hematocrit [Volume Fraction] of Blood by Automated count 36.0-48.0 [facility] Hemoglobin [Mass/volume] in Bloodon 05-16-2024 Hemoglobin (Bld) [Mass/Vol] Hemoglobin [Mass/volume] in Blood 12.0-16.0 [facility] Ayo 05-16-2024 L ------ Specimen: [id number] Received: 05/17/24 Status: JULIAN Amaya Num: [id number] Spec Type: Surgical Subm Dr: Yoandy Valadez Tissues: A Uterus w/ or w/o tubes ovaries except neoplastic or prolap (UTERUS WITH CE Procedures: HE/6, Gross/Micro L5 Age/ Patient Sex Location Account Attending Physician Ana Moore 43/F LABELL [id number] Yoandy Valadez SPEC NUM: [id number] RECD: 05/17/24 STATUS: JULIAN AMAYA NUM: [id number] WHIT: 05/16/[address] [facility] [address]: Yoandy Valadez ENTERED: 05/17/24 [facility] DR: Matthieu Hopper SPEC TYPE: Surgical DEPT: ENEDELIA ADKINS ENTERED BY: [id number] RECV BY: [id number] ORDERED: HE/6, Gross/Micro L5 ORDERED: HE/, Gross/Micro L5 Pathological Diagnosis Uterus and cervix, total simple hysterectomy: -Cervix with mild nonspecific reactive acanthosis and reactive atypia of the squamous epithelium without overt or high-grade dysplasia -Corpus with patchy marked postablation denudation of uterine mucosa, and only small residual portion of the inactive type endometrium attached -Incidental mild superficial adenomyosis, including small focal intravascular adenomyosis also noticed, without any secondary hyperplasia or atypia -Incidental at least 1 small intramural fibroid leiomyoma without atypia Clinical Information Menorrhagia, pelvic pain, dyspareunia, dysmenorrhea Gross Description Part A is received in formalin labeled with the patients name, date of , and uterus with cervix Is a 107 g hysterectomy specimen, which consists of a uterine corpus with attached cervix, resected without bilateral adnexa. The uterine corpus is symmetrical, 3.5 cm cornu to cornu, 4 cm anterior to posterior and 8.5 cm fundus to ectocervical face. The serosa is flores-pink, smooth and glistening. The cervix is 0.9 cm in length by up to 3 cm in diameter. The ectocervical face exhibits flores-pink, smooth and glistening with a slitlike cervical os, up to 1.3 cm in diameter. The Specimen: [id number] Received: 05/17/24 Status: JULIAN Amaya Num: [id number] Spec Type: Surgical Subm Dr: Yoandy Valadez Tissues: A Uterus w/ or w/o tubes ovaries except neoplastic or prolap (UTERUS WITH CE Procedures: HE/6, Gross/Micro L5 Patient: Ana Moore [id number] (Continued) Specimen: [id number] Received: 05/17/24 (Continued) Gross Description (Continued) Signed (signature on file) Douglas Deleon MD 05/24/24 0851 Specimen: [id number] Received: 05/17/24 Status: JULIAN Amaya Num: [id number] Spec Type: Surgical Subm Dr: Yoandy Valadez Tissues: A Uterus w/ or w/o tubes ovaries except neoplastic or prolap (UTERUS WITH CE Procedures: HE/6, Gross/Micro L5 Patient: Ana Moore [id number] (Continued) Specimen: [id number] Received: 05/17/24 (Continued) Gross Description (Continued) specimen is opened to reveal a flores-pink, wrinkled and glistening endocervical canal. The endometrial cavity is flores-pink, focally erythematous, glistening and distorted and somewhat Y shaped, 1 x 0.3 cm and 1.5 x 0.7 cm along the arms of the Y with the base of the Y noted at 1.5 x 0.4 cm. Within the endometrial cavity are focal regions of possible endometrium, up to 0.2 cm in thickness. The myometrium is flores-pink and trabecular, up to 2.6 cm in thickness. Within the endometrium is a well-circumscribed, 0.8 cm in greatest dimension intramural nodule. The cut surfaces of the nodule are white, whirled, rubbery and uniform with no hemorrhage or degeneration identified. Historic Interpreter sections are submitted. Cassettes: A1 Cervix A2 Serosa (to include posterior cul-de-sac) A3-A4 Full thickness cross section of anterior endomyometrium (to include intramural nodule) A5-A6 Full thickness cross sections of posterior endomyometrium (6, ss, [id number] A) Microscopic Description Microscopic examinations are performed supporting the above interpretation CPT Codes 08289 (more content not included)... Normal [facility] Laboratory - Drug toxicology on 05-16-2024 Amphetamines Ql (U) Negative NEGATIVE [facility] Benzodiazepines Ql (U) Negative NEGATIVE [facility] Cocaine Ql (U) Negative NEGATIVE [facility] Opiates Ql (U) Negative NEGATIVE [facility] Phencyclidine Ql (U) Negative NEGATIVE [facility] Laboratory - Hematology and Cell countson 05-16-2024 Immature granulocytes/100 WBC (Bld) 0.4 % 0.0-0.5 [facility] Leukocytes [#/volume] correc gem for nucleated erythrocytes in Blood by Automated counon 05-16-2024 WBC corrected for nucl RBC Auto (Bld) [#/Vol] Leukocytes [#/volume] corrected for nucleated erythrocytes in Blood by Automated coun High 4.0-11.0 [facility] Lymphocytes Auto (Bld) [#/Vo l]on 05-16-2024 Lymphocytes (Bld) [#/Vol] Lymphocytes [#/volume] in Blood by Automated count Low 1.2-3.8 [facility] Lymphocytes/100 WBC Auto (Bl d)on 05-16-2024 Lymphocytes/100 WBC (Bld) Lymphocytes/100 leukocytes in Blood by Automated count Low 20.5-60.0 [facility] MCH Auto (RBC) [Entitic mass ]on 05-16-2024 MCH (RBC) [Entitic mass] MCH [Entitic mass] by Automated count 26.7-34.0 [facility] MCHC Auto (RBC) [Mass/Vol]on 05-16-2024 MCHC (RBC) [Mass/Vol] MCHC [Mass/volume] by Automated count 29.9-35.2 [facility] MCV Auto (RBC) [Entitic vol] on 05-16-2024 MCV (RBC) [Entitic vol] MCV [Entitic vol ume] by Automated count 81.0-99.0 [facility] Methadone [Presence] in Urin e by Screen methodon 05-16-2024 Methadone Screen Ql (U) Methadone [Prese nce] in Urine by Screen method NEGATIVE [facility] Monocytes Auto (Bld) [#/Vol] on 05-16-2024 Monocytes (Bld) [#/Vol] Automated blood monocyte count 0.3-0.8 [facility] Monocytes/100 WBC Auto (Bld) on 05-16-2024 Monocytes/100 WBC (Bld) Automated monocyte % 1. 7-12.0 [facility] Neutrophils Auto (Bld) [#/Vo l]on 05-16-2024 Neutrophils (Bld) [#/Vol] Neutrophils [#/volume] in Blood by Automated count High 1.4-6.5 [facility] Neutrophils/100 WBC Auto (Bl d)on 05-16-2024 Neutrophils/100 WBC (Bld) Automated neutrophil % High 43.0-75.0 [facility] No Panel Informationon 05-16 Eosinophils # (Auto) 0.0 10 3/uL 0.0-0.7 [facility] Immature Granulocyte # (Auto) 0.04 10 3/uL High 0.00-0.03 [facility] Urine Barbiturates Screen Negative NEGATIVE [facility] Urine Marijuana (THC) Screen Positive Abnormal NEGATIVE [facility] Urine Methamphetamines Screen Negative NEGATIVE [facility] Human Chorionic Gonadotropin, Quant <1 mIU/mL [facility] Comment on above: 5-50 0.2-1 ANAG99-12 0 1-2 VIUNY072-7,000 2-3 RWJTO252-79,000 3-4 WEEKS1,000-50,000 4-5 WEEKS10,000-100,000 5-6 WEEKS15,000-200,000 6-8 WEEKS10,000-100,000 2-3 MONTHS Platelet mean volume Auto (B ld) [Entitic vol]on 05-16-2024 Platelet mean volume (Bld) [Entitic vol] Platelet mean volume [Entitic volume] in Blood by Automated count 9.5-13.5 [facility] Platelets Auto (Bld) [#/Vol] on 05-16-2024 Platelets (Bld) [#/Vol] Platelets [#/vol ume] in Blood by Automated count 150-450 [facility] RBC Auto (Bld) [#/Vol]on RBC (Bld) [#/Vol] Erythrocytes [#/volu me] in Blood by Automated count 4.20-5.40 [facility] Urine tricyclic antidepressa nt measurementon 05-16-2024 Tricyclic antidepressants (U) [Mass/Vol] Urine tricyclic antidepressant measurement NEGATIVE [facility] oxyCODONE+oxyMORphone [Prese nce] in Urine by Screen methodon 05-16-2024 oxyCODONE+oxyMORphone Screen Ql (U) oxyCODONE+oxyMORphone [Presence] in Urine by Screen method Abnormal NEGATIVE [facility] ALL BASIC METABOLIC PANELon 05-11-2024 Anion gap [Moles/Vol] 13.3 mmol/L [facility] Calcium [Mass/Vol] 9.4 mg/dL 8.5 - 10. 1 mg/dL [facility] Chloride [Moles/Vol] 107 mmol/L 98 - 10 7 mmol/L [facility] CO2 [Moles/Vol] 27.4 mmol/L 21.0 - 32.0 mmol/L [facility] Creatinine [Mass/Vol] 0.82 mg/dL 0.55 - 1.02 mg/dL [facility] GFR/1.73 sq M.predicted CKD-EPI (S/P/Bld) [Vol rate/Area] >60 >=60 mL/min/1.7 3m 2 [facility] Glucose [Mass/Vol] 86 mg/dL 74 - 106 mg/dL [facility] Potassium [Moles/Vol] 4.7 mmol/L 3.5 - 5.1 mmol/L [facility] Sodium [Moles/Vol] 143 mmol/L 136 - 145 mmol/L [facility] TBH EGFR-NON AF TURKISH >60 >=60 mL/min/1.7 3m 2 [facility] Urea nitrogen [Mass/Vol] 6 mg/dL Low 7.0 - 18.0 mg/dL [facility] Urea nitrogen/Creatinine [Mass ratio] 7.3 mg/mg [facility] ALL CBC WITH AUTO DIFFon BASOPHILS ABSOLUTE AUTO 0 N [facility] Basophils/100 WBC (Bld) 0.5 % 0.2 - 2.0 % [facility] Eosinophils/100 WBC (Bld) 2.5 % 0.9 - 7.0 % [facility] Erythrocyte distribution width (RBC) [Ratio] 13.1 % 11.0 - 15.0 % [facility] Hematocrit (Bld) [Volume fraction] 41.7 % 36.0 - 48.0 % [facility] Hemoglobin (Bld) [Mass/Vol] 14 g/dL 12.0 - 16.0 g/dL [facility] IMMATURE GRANULOCYTES ABS AUTO 0.01 [facility] Immature granulocytes/100 WBC (Bld) 0.2 % 0.0 - 0.5 % [facility] LYMPHOCYTES ABSOLUTE AUTO 1.3 [facility] Lymphocytes/100 WBC (Bld) 23 % 20.5 - 60.0 % [facility] MCH (RBC) [Entitic mass] 31.7 pg 26.7 - 34.0 pg [facility] MCHC (RBC) [Mass/Vol] 33.6 g/dL 29.9 - 35.2 g/dL [facility] MCV (RBC) [Entitic vol] 94.3 fL 81.0 - 99.0 fL [facility] MONOCYTES ABSOLUTE AUTO 0.5 N [facility] Monocytes/100 WBC (Bld) 9.3 % 1.7 - 12.0 % [facility] NEUTROPHILS ABSOLUTE AUTO 3.6 [facility] Neutrophils/100 WBC (Bld) 64.5 % 43.0 - 75.0 % [facility] Platelet mean volume (Bld) [Entitic vol] 10.1 fL 9.5 - 13.5 fL [facility] TBH EO # 0.1 [facility] TB PLT 259 [facility] RBC 4.42 [facility] WBC 5.6 [facility] ALL TYPE AND SCREENon 2023 ABO and Rh group Nom (Bld) Blood group A Rh(D) positive [facility] Spec expiration tian ged by [id number] on 05/11/24 Reason: SURGICAL EXTENSION [facility] Activated partial thrombopla stin time (aPTT) in platelet poor plasma by coagulation aon 05-11-2024 aPTT Coag (PPP) [Time] Activated partial thromboplastin time (aPTT) in platelet poor plasma by coagulation a 22.3-36.2 [facility] Basophils Auto (Bld) [#/Vol] on 05-11-2024 Basophils (Bld) [#/Vol] Automated basophil count 0.0-0.1 [facility] Basophils/100 WBC Auto (Bld) on 05-11-2024 Basophils/100 WBC (Bld) Automated basophil % 0. 2-2.0 [facility] APTTon 05-11-2024 aPTT Coag (Bld) [Time] 30.5 s [facility] Eosinophils/100 WBC Auto (Bl d)on 05-11-2024 Eosinophils/100 WBC (Bld) Automated eosinophil % 0.9-7.0 [facility] Erythrocyte distribution wid th Auto (RBC) [Ratio]on 05-11-2024 Erythrocyte distribution width (RBC) [Ratio] Erythrocyte distribution width [Ratio] by Automated count 11.0-15.0 [facility] Estimated glomerular filtrat ion rate (GFR) non- Americanon 05-11-2024 GFR/1.73 sq M.predicted among non-blacks MDRD (S/P/Bld) [Vol rate/Area] Estimated glomerular filtration rate (GFR) non- >=60 mL/min/1.7 3m 2 [facility] Globulin Calc (S) [Mass/Vol] on 05-11-2024 Globulin (S) [Mass/Vol] Serum globulin m easurement by calculation (mass/volume) [facility] HMHP LIVER PANELon Albumin [Mass/Vol] 3.3 g/dL Low 3.4 - 5.0 g/dL [facility] ALBUMIN GLOBULIN RATIO 0.9 [facility] ALP [Catalytic activity/Vol] 54 U/L 46 - 116 U/L [facility] ALT [Catalytic activity/Vol] 9 U/L Low 14 - 59 U/L [facility] AST [Catalytic activity/Vol] 12 U/L Low 15 - 37 U/L [facility] Bilirubin [Mass/Vol] 0.4 mg/dL 0.2 - 1 .0 mg/dL [facility] Bilirubin.indirect [Mass/Vol] 0.1 mg/dL 0.0 - 0.2 mg/dL [facility] Globulin (S) [Mass/Vol] 3.5 g/dL [facility] Protein [Mass/Vol] 6.8 g/dL 6.4 - 8.2 g/dL [facility] Hematocrit Auto (Bld) [Volum e fraction]on 05-11-2024 Hematocrit (Bld) [Volume fraction] Hematocrit [Volume Fraction] of Blood by Automated count 36.0-48.0 [facility] Hemoglobin [Mass/volume] in Bloodon 05-11-2024 Hemoglobin (Bld) [Mass/Vol] Hemoglobin [Mass/volume] in Blood 12.0-16.0 [facility] INR in Platelet poor plasma by Coagulation assayon 05-11-2024 INR Coag (PPP) [Relative time] INR in Platelet poor plasma by Coagulation assay [facility] Comment on above: DESIRED INR:2.0-3.0 CONDITIONS NOT LISTED BELOW2.5-3.5 FOR PROSTHETIC HEART VALVE REPLACEMENT2.5-3.5 RECURRENT THROMBOSIS Laboratory - Chemistry and C hemistry - challengeon 05-11-2024 Albumin [Mass/Vol] 3.3 g/dL Low 3.4-5.0 [facility] ALP [Catalytic activity/Vol] 54 U/L 46-116 [facility] ALT [Catalytic activity/Vol] 9 U/L Low 14-59 [facility] AST [Catalytic activity/Vol] 12 U/L Low 15-37 [facility] Bilirubin [Mass/Vol] 0.4 mg/dL 0.2-1.0 [facility] Bilirubin.direct [Mass/Vol] 0.1 mg/dL 0.0-0.2 [facility] Calcium [Mass/Vol] 9.4 mg/dL 8.5-10.1 [facility] Chloride [Moles/Vol] 107 mmol/L 98-107 [facility] CO2 [Moles/Vol] 27.4 mmol/L 21.0-32.0 [facility] Creatinine [Mass/Vol] 0.82 mg/dL 0.55-1.02 [facility] GFR/1.73 sq M.predicted MDRD (S/P/Bld) [Vol rate/Area] mL/min/{1.73_m2} >=60 mL/min/1.7 3m 2 [facility] Glucose [Mass/Vol] 86 mg/dL 74-106 [facility] Potassium [Moles/Vol] 4.7 mmol/L 3.5-5.1 [facility] Protein [Mass/Vol] 6.8 g/dL 6.4-8.2 [facility] Sodium [Moles/Vol] 143 mmol/L 136-145 [facility] Urea nitrogen [Mass/Vol] 6.0 mg/dL Low 7.0-18.0 [facility] Urea nitrogen/Creatinine [Mass ratio] 7.3 mg/mg [facility] Laboratory - Hematology and Cell countson 05-11-2024 Immature granulocytes/100 WBC (Bld) 0.2 % 0.0-0.5 [facility] Leukocytes [#/volume] correc gem for nucleated erythrocytes in Blood by Automated counon 05-11-2024 WBC corrected for nucl RBC Auto (Bld) [#/Vol] Leukocytes [#/volume] corrected for nucleated erythrocytes in Blood by Automated coun 4.0-11.0 [facility] Lymphocytes Auto (Bld) [#/Vo l]on 05-11-2024 Lymphocytes (Bld) [#/Vol] Lymphocytes [#/volume] in Blood by Automated count 1.2-3.8 [facility] Lymphocytes/100 WBC Auto (Bl d)on 05-11-2024 Lymphocytes/100 WBC (Bld) Lymphocytes/100 leukocytes in Blood by Automated count 20.5-60.0 [facility] MCH Auto (RBC) [Entitic mass ]on 05-11-2024 MCH (RBC) [Entitic mass] MCH [Entitic mass] by Automated count 26.7-34.0 [facility] MCHC Auto (RBC) [Mass/Vol]on 05-11-2024 MCHC (RBC) [Mass/Vol] MCHC [Mass/volume] by Automated count 29.9-35.2 [facility] MCV Auto (RBC) [Entitic vol] on 05-11-2024 MCV (RBC) [Entitic vol] MCV [Entitic vol ume] by Automated count 81.0-99.0 [facility] Monocytes Auto (Bld) [#/Vol] on 05-11-2024 Monocytes (Bld) [#/Vol] Automated blood monocyte count 0.3-0.8 [facility] Monocytes/100 WBC Auto (Bld) on 05-11-2024 Monocytes/100 WBC (Bld) Automated monocyte % 1. 7-12.0 [facility] Neutrophils Auto (Bld) [#/Vo l]on 05-11-2024 Neutrophils (Bld) [#/Vol] Neutrophils [#/volume] in Blood by Automated count 1.4-6.5 [facility] Neutrophils/100 WBC Auto (Bl d)on 05-11-2024 Neutrophils/100 WBC (Bld) Automated neutrophil % 43.0-75.0 [facility] No Panel Informationon 05-11 Interpretation and review of laboratory results Abnormal [facility] Eosinophils # (Auto) 0.1 10 3/uL 0.0-0.7 [facility] Immature Granulocyte # (Auto) 0.01 10 3/uL 0.00-0.03 [facility] Platelet mean volume Auto (B ld) [Entitic vol]on 05-11-2024 Platelet mean volume (Bld) [Entitic vol] Platelet mean volume [Entitic volume] in Blood by Automated count 9.5-13.5 [facility] Platelets Auto (Bld) [#/Vol] on 05-11-2024 Platelets (Bld) [#/Vol] Platelets [#/vol ume] in Blood by Automated count 150-450 [facility] Prothrombin time (PT)on 04-28 PT Coag (PPP) [Time] Prothrombin time (PT) 9.0- 11.6 [facility] RBC Auto (Bld) [#/Vol]on RBC (Bld) [#/Vol] Erythrocytes [#/volu me] in Blood by Automated count 4.20-5.40 [facility] SRMCO PROTHROMBIN TIME INR W/O COUMon 05-11-2024 PT Coag (PPP) [Time] 10.8 s [facility] INR 1.02 [facility] Comment on above: DESIRED INR: 2.0-3.0 CONDITIONS NOT LISTED BELOW 2.5-3.5 FOR PROSTHETIC HEART VALVE REPLACEMENT 2.5-3.5 RECURRENT THROMBOSIS Serum or plasma albumin/glob ulin mass ratioon 05-11-2024 Albumin/Globulin [Mass ratio] Serum or plasma albumin/globulin mass ratio [facility] Serum or plasma anion gap de terminationon 05-11-2024 Anion gap [Moles/Vol] Serum or plasma an ion gap determination [facility] ALL BASIC METABOLIC PANELon 04-14-2024 Anion gap [Moles/Vol] 12.4 mmol/L [facility] Calcium [Mass/Vol] 8.9 mg/dL 8.5 - 10. 1 mg/dL [facility] Chloride [Moles/Vol] 108 mmol/L High 98 - 10 7 mmol/L [facility] CO2 [Moles/Vol] 25.8 mmol/L 21.0 - 32.0 mmol/L [facility] Creatinine [Mass/Vol] 0.81 mg/dL 0.55 - 1.02 mg/dL [facility] GFR/1.73 sq M.predicted CKD-EPI (S/P/Bld) [Vol rate/Area] >60 >=60 mL/min/1.7 3m 2 [facility] Glucose [Mass/Vol] 97 mg/dL 74 - 106 mg/dL [facility] Potassium [Moles/Vol] 4.2 mmol/L 3.5 - 5.1 mmol/L [facility] Sodium [Moles/Vol] 142 mmol/L 136 - 145 mmol/L [facility] TBH EGFR-NON AF TURKISH >60 >=60 mL/min/1.7 3m 2 [facility] Urea nitrogen [Mass/Vol] 8 mg/dL 7.0 - 18.0 mg/dL [facility] Urea nitrogen/Creatinine [Mass ratio] 9.9 mg/mg [facility] ALL TYPE AND SCREENon 2023 ABO and Rh group Nom (Bld) Blood group A Rh(D) positive [facility] Activated partial thrombopla stin time (aPTT) in platelet poor plasma by coagulation aon 04-14-2024 aPTT Coag (PPP) [Time] 28.5 s 22.3-36.2 [facility] aPTT Coag (PPP) [Time] Activated partial thromboplastin time (aPTT) in platelet poor plasma by coagulation a 22.3-36.2 [facility] Basophils Auto (Bld) [#/Vol] on 04-14-2024 Basophils (Bld) [#/Vol] 0.0 10 3/uL 0.0-0.1 [facility] Basophils (Bld) [#/Vol] Automated basophil count 0.0-0.1 [facility] Basophils/100 WBC Auto (Bld) on 04-14-2024 Basophils/100 WBC (Bld) 0.6 % 0.2-2.0 [facility] [place] Basophils/100 WBC (Bld) Automated basophil % 0. 2-2.0 [facility] Eosinophils/100 WBC Auto (Bl d)on 04-14-2024 Eosinophils/100 WBC (Bld) 3.1 % 0.9-7.0 [facility] Eosinophils/100 WBC (Bld) Automated eosinophil % 0.9-7.0 [facility] Erythrocyte distribution wid th Auto (RBC) [Ratio]on 04-14-2024 Erythrocyte distribution width (RBC) [Ratio] 13.1 % 11.0-15.0 [facility] Erythrocyte distribution width (RBC) [Ratio] Erythrocyte distribution width [Ratio] by Automated count 11.0-15.0 [facility] Estimated glomerular filtrat ion rate (GFR) non- Americanon 04-14-2024 GFR/1.73 sq M.predicted among non-blacks MDRD (S/P/Bld) [Vol rate/Area] mL/min/{1.73_m2} >=60 mL/min/1.7 3m 2 [facility] GFR/1.73 sq M.predicted among non-blacks MDRD (S/P/Bld) [Vol rate/Area] Estimated glomerular filtration rate (GFR) non- >=60 mL/min/1.7 3m 2 [facility] Globulin Calc (S) [Mass/Vol] on 04-14-2024 Globulin (S) [Mass/Vol] 3.1 g/dL [facility] [place] Globulin (S) [Mass/Vol] Serum globulin m easurement by calculation (mass/volume) [facility] [facility] Albumin [Mass/Vol] 3.1 g/dL Low 3.4 - 5.0 g/dL [facility] ALBUMIN GLOBULIN RATIO 1 NO [facility] ALP [Catalytic activity/Vol] 42 U/L Low 46 - 116 U/L [facility] ALT [Catalytic activity/Vol] 11 U/L Low 14 - 59 U/L [facility] AST [Catalytic activity/Vol] 10 U/L Low 15 - 37 U/L [facility] Bilirubin [Mass/Vol] 0.3 mg/dL 0.2 - 1 .0 mg/dL [facility] Bilirubin.indirect [Mass/Vol] 0.1 mg/dL 0.0 - 0.2 mg/dL [facility] Globulin (S) [Mass/Vol] 3.1 g/dL N [facility] Protein [Mass/Vol] 6.2 g/dL Low 6.4 - 8.2 g/dL [facility] Hematocrit Auto (Bld) [Volum e fraction]on 04-14-2024 Hematocrit (Bld) [Volume fraction] 39.6 % 36.0-48.0 [facility] Hematocrit (Bld) [Volume fraction] Hematocrit [Volume Fraction] of Blood by Automated count 36.0-48.0 [facility] Hemoglobin [Mass/volume] in Bloodon 04-14-2024 Hemoglobin (Bld) [Mass/Vol] 13.0 g/dL 12.0-16.0 [facility] Hemoglobin (Bld) [Mass/Vol] Hemoglobin [Mass/volume] in Blood 12.0-16.0 [facility] INR in Platelet poor plasma by Coagulation assayon 04-14-2024 INR Coag (PPP) [Relative time] 1.03 {INR} [facility] Comment on above: DESIRED INR:2.0-3.0 CONDITIONS NOT LISTED BELOW2.5-3.5 FOR PROSTHETIC HEART VALVE REPLACEMENT2.5-3.5 RECURRENT THROMBOSIS INR Coag (PPP) [Relative time] INR in Platelet poor plasma by Coagulation assay [facility] Comment on above: DESIRED INR:2.0-3.0 CONDITIONS NOT LISTED BELOW2.5-3.5 FOR PROSTHETIC HEART VALVE REPLACEMENT2.5-3.5 RECURRENT THROMBOSIS Laboratory - Chemistry and C hemistry - challengeon 04-14-2024 Albumin [Mass/Vol] 3.1 g/dL Low 3.4-5.0 [facility] ALP [Catalytic activity/Vol] 42 U/L Low 46-116 [facility] ALT [Catalytic activity/Vol] 11 U/L Low 14-59 [facility] AST [Catalytic activity/Vol] 10 U/L Low 15-37 [facility] Bilirubin [Mass/Vol] 0.3 mg/dL 0.2-1.0 [facility] Bilirubin.direct [Mass/Vol] 0.1 mg/dL 0.0-0.2 [facility] Calcium [Mass/Vol] 8.9 mg/dL 8.5-10.1 [facility] Chloride [Moles/Vol] 108 mmol/L High 98-107 [facility] CO2 [Moles/Vol] 25.8 mmol/L 21.0-32.0 [facility] Creatinine [Mass/Vol] 0.81 mg/dL 0.55-1.02 [facility] GFR/1.73 sq M.predicted MDRD (S/P/Bld) [Vol rate/Area] mL/min/{1.73_m2} >=60 mL/min/1.7 3m 2 [facility] Glucose [Mass/Vol] 97 mg/dL 74-106 [facility] Potassium [Moles/Vol] 4.2 mmol/L 3.5-5.1 [facility] Protein [Mass/Vol] 6.2 g/dL Low 6.4-8.2 [facility] Sodium [Moles/Vol] 142 mmol/L 136-145 [facility] Urea nitrogen [Mass/Vol] 8.0 mg/dL 7.0-18.0 [facility] Urea nitrogen/Creatinine [Mass ratio] 9.9 mg/mg [facility] Laboratory - Hematology and Cell countson 04-14-2024 Immature granulocytes/100 WBC (Bld) 0.0 % 0.0-0.5 [facility] Leukocytes [#/volume] correc gem for nucleated erythrocytes in Blood by Automated counon 04-14-2024 WBC corrected for nucl RBC Auto (Bld) [#/Vol] 7.2 10 3/uL 4.0-11.0 [facility] WBC corrected for nucl RBC Auto (Bld) [#/Vol] Leukocytes [#/volume] corrected for nucleated erythrocytes in Blood by Automated coun 4.0-11.0 [facility] Lymphocytes Auto (Bld) [#/Vo l]on 04-14-2024 Lymphocytes (Bld) [#/Vol] 2.2 10 3/uL 1.2-3.8 [facility] Lymphocytes (Bld) [#/Vol] Lymphocytes [#/volume] in Blood by Automated count 1.2-3.8 [facility] Lymphocytes/100 WBC Auto (Bl d)on 04-14-2024 Lymphocytes/100 WBC (Bld) 30.4 % 20.5-60.0 [facility] Lymphocytes/100 WBC (Bld) Lymphocytes/100 leukocytes in Blood by Automated count 20.5-60.0 [facility] MCH Auto (RBC) [Entitic mass ]on 04-14-2024 MCH (RBC) [Entitic mass] 31.1 pg 26.7-34.0 [facility] MCH (RBC) [Entitic mass] MCH [Entitic mass] by Automated count 26.7-34.0 [facility] MCHC Auto (RBC) [Mass/Vol]on 04-14-2024 MCHC (RBC) [Mass/Vol] 32.8 g/dL 29.9-35.2 [facility] MCHC (RBC) [Mass/Vol] MCHC [Mass/volume] by Automated count 29.9-35.2 [facility] MCV Auto (RBC) [Entitic vol] on 04-14-2024 MCV (RBC) [Entitic vol] 94.7 fL 81.0-99.0 [facility] [place] MCV (RBC) [Entitic vol] MCV [Entitic vol ume] by Automated count 81.0-99.0 [facility] Monocytes Auto (Bld) [#/Vol] on 04-14-2024 Monocytes (Bld) [#/Vol] 0.7 10 3/uL 0.3-0.8 [facility] Monocytes (Bld) [#/Vol] Automated blood monocyte count 0.3-0.8 [facility] Monocytes/100 WBC Auto (Bld) on 04-14-2024 Monocytes/100 WBC (Bld) 9.3 % 1.7-12.0 [facility] [place] Monocytes/100 WBC (Bld) Automated monocyte % 1. 7-12.0 [facility] Neutrophils Auto (Bld) [#/Vo l]on 04-14-2024 Neutrophils (Bld) [#/Vol] 4.1 10 3/uL 1.4-6.5 [facility] Neutrophils (Bld) [#/Vol] Neutrophils [#/volume] in Blood by Automated count 1.4-6.5 [facility] Neutrophils/100 WBC Auto (Bl d)on 04-14-2024 Neutrophils/100 WBC (Bld) 56.6 % 43.0-75.0 [facility] Neutrophils/100 WBC (Bld) Automated neutrophil % 43.0-75.0 [facility] No Panel Informationon 04-14 Interpretation and review of laboratory results Abnormal [facility] Eosinophils # (Auto) 0.2 10 3/uL 0.0-0.7 [facility] Immature Granulocyte # (Auto) 0.00 10 3/uL 0.00-0.03 [facility] Platelet mean volume Auto (B ld) [Entitic vol]on 04-14-2024 Platelet mean volume (Bld) [Entitic vol] 10.5 fL 9.5-13.5 [facility] Platelet mean volume (Bld) [Entitic vol] Platelet mean volume [Entitic volume] in Blood by Automated count 9.5-13.5 [facility] Platelets Auto (Bld) [#/Vol] on 04-14-2024 Platelets (Bld) [#/Vol] 227 10 3/uL 150-450 [facility] Platelets (Bld) [#/Vol] Platelets [#/vol ume] in Blood by Automated count 150-450 [facility] Prothrombin time (PT)on 03-28 PT Coag (PPP) [Time] 10.9 s 9.0-11.6 [facility] PT Coag (PPP) [Time] Prothrombin time (PT) 9.0- 11.6 [facility] RBC Auto (Bld) [#/Vol]on RBC (Bld) [#/Vol] 4.18 10 6/uL Low 4.20-5.40 [facility] RBC (Bld) [#/Vol] Erythrocytes [#/volu me] in Blood by Automated count Low 4.20-5.40 [facility] Serum or plasma albumin/glob ulin mass ratioon 04-14-2024 Albumin/Globulin [Mass ratio] 1.0 {ratio} [facility] Albumin/Globulin [Mass ratio] Serum or plasma albumin/globulin mass ratio [facility] Serum or plasma anion gap de terminationon 04-14-2024 Anion gap [Moles/Vol] 12.4 mmol/L [facility] Anion gap [Moles/Vol] Serum or plasma an ion gap determination [facility] Basophils Auto (Bld) [#/Vol] on 11-12-2023 Basophils (Bld) [#/Vol] 0.1 10 3/uL 0.0-0.1 [facility] Basophils/100 WBC Auto (Bld) on 11-12-2023 Basophils/100 WBC (Bld) 0.5 % 0.2-2.0 [facility] [place] Eosinophils/100 WBC Auto (Bl d)on 11-12-2023 Eosinophils/100 WBC (Bld) 3.8 % 0.9-7.0 [facility] Erythrocyte distribution wid th Auto (RBC) [Ratio]on 11-12-2023 Erythrocyte distribution width (RBC) [Ratio] 13.1 % 11.0-15.0 [facility] Hematocrit Auto (Bld) [Volum e fraction]on 11-12-2023 Hematocrit (Bld) [Volume fraction] 40.6 % 36.0-48.0 [facility] Hemoglobin [Mass/volume] in Bloodon 11-12-2023 Hemoglobin (Bld) [Mass/Vol] 13.4 g/dL 12.0-16.0 [facility] Laboratory - Hematology and Cell countson 11-12-2023 Immature granulocytes/100 WBC (Bld) 0.1 % 0.0-0.5 [facility] Leukocytes [#/volume] correc gem for nucleated erythrocytes in Blood by Automated counon 11-12-2023 WBC corrected for nucl RBC Auto (Bld) [#/Vol] 9.4 10 3/uL 4.0-11.0 [facility] Lymphocytes Auto (Bld) [#/Vo l]on 11-12-2023 Lymphocytes (Bld) [#/Vol] 4.3 10 3/uL High 1.2-3.8 [facility] Lymphocytes/100 WBC Auto (Bl d)on 11-12-2023 Lymphocytes/100 WBC (Bld) 45.1 % 20.5-60.0 [facility] MCH Auto (RBC) [Entitic mass ]on 11-12-2023 MCH (RBC) [Entitic mass] 31.1 pg 26.7-34.0 [facility] MCHC Auto (RBC) [Mass/Vol]on 11-12-2023 MCHC (RBC) [Mass/Vol] 33.0 g/dL 29.9-35.2 [facility] MCV Auto (RBC) [Entitic vol] on 11-12-2023 MCV (RBC) [Entitic vol] 94.2 fL 81.0-99.0 [facility] [place] Monocytes Auto (Bld) [#/Vol] on 11-12-2023 Monocytes (Bld) [#/Vol] 0.8 10 3/uL 0.3-0.8 [facility] Monocytes/100 WBC Auto (Bld) on 11-12-2023 Monocytes/100 WBC (Bld) 7.9 % 1.7-12.0 [facility] [place] Neutrophils Auto (Bld) [#/Vo l]on 11-12-2023 Neutrophils (Bld) [#/Vol] 4.0 10 3/uL 1.4-6.5 [facility] Neutrophils/100 WBC Auto (Bl d)on 11-12-2023 Neutrophils/100 WBC (Bld) 42.6 % Low 43.0-75.0 [facility] No Panel Informationon 11-11 Eosinophils # (Auto) 0.4 10 3/uL 0.0-0.7 [facility] Human Chorionic Gonadotropin, Quant <1 mIU/mL [facility] Comment on above: 5-50 0.2-1 HOVK91-15 0 1-2 LTCUU805-6,000 2-3 UQWJE392-51,000 3-4 WEEKS1,000-50,000 4-5 WEEKS10,000-100,000 5-6 WEEKS15,000-200,000 6-8 WEEKS10,000-100,000 2-3 MONTHS Immature Granulocyte # (Auto) 0.01 10 3/uL 0.00-0.03 [facility] Platelet mean volume Auto (B ld) [Entitic vol]on 11-12-2023 Platelet mean volume (Bld) [Entitic vol] 9.9 fL 9.5-13.5 [facility] Platelets Auto (Bld) [#/Vol] on 11-12-2023 Platelets (Bld) [#/Vol] 275 10 3/uL 150-450 [facility] RBC Auto (Bld) [#/Vol]on RBC (Bld) [#/Vol] 4.31 10 6/uL 4.20-5.40 [facility] Human papilloma virus 16+18+ 31+33+35+39+45+51+52+56+58+59+66+68 DNA [Presence] in Tommy 11-02-2023 HPV 16+18+31+33+35+39+45+51 +52+56+58+59+66+68 DNA Probe+sig amp Ql (Cvx) Negative Negative [facility] Comment on above: This nucleic acid am plification test detects fourteen high-risk HPV types (16,18,31,33,35,39,45,51,52,56,58,59,66,68)without differentiation.Performed at: =G - [facility] [address] [id number] Director: Annia Jiménez MD, Phone: [phone] at: - [facility] [address] [id number] Director: Annia Jiménez MD, Phone: [phone] No Panel Informationon 11-01 HPV High Risk Other Comment Note . [facility] Comment on above: TESTS RESULT FLAG UN ITS REF RANGE LAB -DIAGNOSIS: 02 NEGATIVE FOR INTRAEPITHELIAL LESION OR MALIGNANCY.Specimen adequacy: 02 Satisfactory for evaluation. No endocervical component is identified.Performed by: Jonathan Nelson, Wash Tub Machine Operator (ASCP). 02Note: Note 02 The Pap [...] Low,>-Panic High,A-Abnormal,AA-Critical Abnormal ------Performed at:02 WB [facility] [address] [place] [address] Annia Jiménez MD, Reference Lab Test Patient Age Note . [facility] Comment on above: TESTS RESULT FLAG UN ITS REF RANGE LAB - Clinician Provided Cytology Information Source.............Cervix;Endocervix No. of containers..01 ThinPrep VialAge Algo ACOG Cathie... 30-65 01 FLAG LEGEND: L-Low Normal,H-High Normal,LL-Alert Low,HH-Alert High <-Panic Low,>-Panic High,A-Abnormal,AA-Critical Abnormal ------Performed at:01 =G [facility] [address] [place] [address] Annia Jiménez MD, Basophils Auto (Bld) [#/Vol] on 09-28-2023 Basophils (Bld) [#/Vol] 0.1 10 3/uL 0.0-0.1 [facility] Basophils/100 WBC Auto (Bld) on 09-28-2023 Basophils/100 WBC (Bld) 0.8 % 0.2-2.0 [facility] [place] Eosinophils/100 WBC Auto (Bl d)on 09-28-2023 Eosinophils/100 WBC (Bld) 3.4 % 0.9-7.0 [facility] Erythrocyte distribution wid th Auto (RBC) [Ratio]on 09-28-2023 Erythrocyte distribution width (RBC) [Ratio] 13.1 % 11.0-15.0 [facility] Glucose mean value [Mass/vol ume] in Blood Estimated from glycated hemoglobinon 09-28-2023 Average glucose Estimated from glycated hemoglobin (Bld) [Mass/Vol] 91 mg/dL [facility] Hematocrit Auto (Bld) [Volum e fraction]on 09-28-2023 Hematocrit (Bld) [Volume fraction] 41.1 % 36.0-48.0 [facility] Hemoglobin [Mass/volume] in Bloodon 09-28-2023 Hemoglobin (Bld) [Mass/Vol] 13.3 g/dL 12.0-16.0 [facility] Laboratory - Chemistry and C hemistry - challengeon 09-28-2023 Free T4 [Mass/Vol] 0.93 ng/dL 0.76-1.46 [facility] TSH Qn 1.327 m[IU]/L 0.358-3.74 0 [facility] Laboratory - Hematology and Cell countson 09-28-2023 HbA1c (Bld) [Mass fraction] 4.8 % 4.5-6.2 [facility] Comment on above: ADA RECOMMENDED LIMI T 4.0 - 6.0ADA THERAPEUTIC TARGET < 7.0ACTION SUGGESTED> 7.0 Immature granulocytes/100 WBC (Bld) 0.1 % 0.0-0.5 [facility] Leukocytes [#/volume] correc gem for nucleated erythrocytes in Blood by Automated counon 09-28-2023 WBC corrected for nucl RBC Auto (Bld) [#/Vol] 7.1 10 3/uL 4.0-11.0 [facility] Lymphocytes Auto (Bld) [#/Vo l]on 09-28-2023 Lymphocytes (Bld) [#/Vol] 2.8 10 3/uL 1.2-3.8 [facility] Lymphocytes/100 WBC Auto (Bl d)on 09-28-2023 Lymphocytes/100 WBC (Bld) 39.0 % 20.5-60.0 [facility] MCH Auto (RBC) [Entitic mass ]on 09-28-2023 MCH (RBC) [Entitic mass] 30.6 pg 26.7-34.0 [facility] MCHC Auto (RBC) [Mass/Vol]on 09-28-2023 MCHC (RBC) [Mass/Vol] 32.4 g/dL 29.9-35.2 [facility] MCV Auto (RBC) [Entitic vol] on 09-28-2023 MCV (RBC) [Entitic vol] 94.5 fL 81.0-99.0 [facility] [place] Monocytes Auto (Bld) [#/Vol] on 09-28-2023 Monocytes (Bld) [#/Vol] 0.5 10 3/uL 0.3-0.8 [facility] Monocytes/100 WBC Auto (Bld) on 09-28-2023 Monocytes/100 WBC (Bld) 7.3 % 1.7-12.0 [facility] [place] Neutrophils Auto (Bld) [#/Vo l]on 09-28-2023 Neutrophils (Bld) [#/Vol] 3.5 10 3/uL 1.4-6.5 [facility] Neutrophils/100 WBC Auto (Bl d)on 09-28-2023 Neutrophils/100 WBC (Bld) 49.4 % 43.0-75.0 [facility] No Panel Informationon 09-27 Dehydroepiandrosterone (DHEA) 330 ng/dL 31-701 [facility] Comment on above: This test was develo ped and its performance characteristicsdetermined by [employer]. It has not been cleared orapproved by the Food and Drug Administration.Performed at: [address] [id number] Director: Ragini Enriquez MD, Phone: [phone] Dehydroepiandrosterone Sulfate 98.1 ug/dL 57.3-279.2 [facility] Eosinophils # (Auto) 0.2 10 3/uL 0.0-0.7 [facility] Follicle Stimulating Hormone 32.8 mIU/mL . [facility] Comment on above: Adult Female Range F ollicular phase 3.5 - 12.5 Ovulation phase 4.7 - 21.5 Luteal phase 1.7 - 7.7 Postmenopausal 25.8 - 134.8Performed at: [facility] [id number] Director: Julius Meza PhD, Phone: [phone] Human Chorionic Gonadotropin, Quant <1 mIU/mL [facility] Comment on above: 5-50 0.2-1 BXKA77-23 0 1-2 DKEZS460-4,000 2-3 ESWBH948-33,000 3-4 WEEKS1,000-50,000 4-5 WEEKS10,000-100,000 5-6 WEEKS15,000-200,000 6-8 WEEKS10,000-100,000 2-3 MONTHS Immature Granulocyte # (Auto) 0.01 10 3/uL 0.00-0.03 [facility] Platelet mean volume Auto (B ld) [Entitic vol]on 09-28-2023 Platelet mean volume (Bld) [Entitic vol] 10.0 fL 9.5-13.5 [facility] Platelets Auto (Bld) [#/Vol] on 09-28-2023 Platelets (Bld) [#/Vol] 286 10 3/uL 150-450 [facility] RBC Auto (Bld) [#/Vol]on RBC (Bld) [#/Vol] 4.35 10 6/uL 4.20-5.40 [facility] Serum or plasma lutropin geoff surement (units/volume)on 09-28-2023 Lutropin Qn 19.0 m[IU]/mL . [facility] Comment on above: Adult Female Range [...] VERY IMPORTANT TO YOUR HEALTH. THE CURRENT [place] [employer] GUIDELINES RECOMMENDS ANNUAL MAMMOGRAPHY BEGINNING AT AGE 40. THIS FACILITY UTILIZES A REMINDER SYSTEM TO ENSURE ALL PATIENTS RECEIVE REMINDER NOTIFICATIONS AT THE APPROPRIATE TIME BASED ON THE RECOMMENDATIONS OF THIS EXAM. ELECTRONICALLY SIGNED BY: Vish Walters MD Normal Not Available Comment on above: Order Comment: To rios ve repeated in 6 months. Compared to Mammogram done on Left breast on 12/21/2022. PAP ACOG PANEL 2: 30 to 65on 11-04-2022 . . Normal [facility] Comment on above: Result Comment: Perf ormed at: WB Performed By: #### [id number] #### [facility] [address] [address] [address] Kleber Deleon Age Gdln ACOG Testing 30-65 Normal [facility] Comment on above: Performed By: #### [id number] #### [facility] [address] [address] [address] Kleber Deleon DIAGNOSIS: Comment Normal [facility] Comment on above: Result Comment: NEGA TIVE FOR INTRAEPITHELIAL LESION OR MALIGNANCY. Performed at: WB Performed By: #### [id number] #### [facility] [address] [address] [address] Kleber Deleon HPV Aptima Negative Normal Negative [facility] Comment on above: Result Comment: This nucleic acid amplification test detects fourteen high-risk HPV types (16,18,31,33,35,39,45,51,52,56,58,59,66,68) without differentiation. Performed at: =G Performed By: #### [id number] #### [facility] [address] [place] [address] Dr. Kleber Deleon HPV Genotype Reflex Comment Normal [facility] Comment on above: Result Comment: Crit eria not met, HPV Genotype not performed. Performed at: WB Performed By: #### [id number] #### [facility] [address] [place] [address] Dr. Kleber Deleon Methodology: Comment Normal [facility] Comment on above: Result Comment: This liquid based ThinPrep(R) pap test was screened with the use of an image guided system. Performed at: WB Performed By: #### [id number] #### [facility] [address] [place] [address] Dr. Kleber Deleon Note: Comment Normal [facility] Comment on above: Result Comment: The Pap smear is a screening test designed to aid in the detection of premalignant and malignant conditions of the uterine cervix. It is not a diagnostic procedure and should not be used as the sole means of detecting cervical cancer. Both false-positive and false-negative reports do occur. . Performed at: WB Performed By: #### [id number] #### [facility] [address] [place] [address] Dr. Kleber Deleon Performed by: Comment Normal [facility] Comment on above: Result Comment: Alyssa Henderson, Wash Tub Machine Operator (ASCP) Performed at: WB Performed By: #### [id number] #### [facility] [address] [place] [address] Dr. Kleber Deleon Specimen adequacy: Comment Normal [facility] Comment on above: Result Comment: Sati sfactory for evaluation. Endocervical and/or squamous metaplastic cells (endocervical component) are present. Performed at: WB Performed By: #### [id number] #### [facility] [address] [place], [place] [address] Dr. Kleber Deleon XR FACIAL MIN 3 VIEWSon 03-29 XR FACIAL MIN 3 VIEWS EXAM: XR FACIAL DE N 3 VIEWS HISTORY: Falls ; fell downstairs, facial pain COMPARISON: None. TECHNIQUE: FINDINGS: No visible fracture of the facial bones. Orbital rims are intact. No fluid levels within the paranasal sinuses. IMPRESSION: 1. No acute bone abnormality. Electronically authenticated by: VISH PORTER Date: 2022-04-20 07:52 Normal [facility] Cult,Genitalon 10-16-2018 Cult,Genital Specimen Description .VAGINA Special Requests NOT REPORTED Culture NORMAL URO-GENITAL DAVI STREPTOCOCCI, BETA HEMOLYTIC GROUP B ISOLATED. NEGATIVE FOR NEISSERIA GONORRHOEAE Report Status FINAL 10/16/2018 [facility] Comment on above: Performed By: #### G EC #### [address] [id number] Software Design Engineer: Bob Whitehead MD [facility] [address] [place] [address] Software Design Engineer: Jorge Luis Nina MD Cytologyon 01-27-2018 Cytology (NOTE) [id number] [facility] CONSULTING PATHOLOGISTS [facility] [place] ANATOMIC PATHOLOGY [address] [place] [id number] GYNECOLOGIC CYTOLOGY REPORT Patient Name: ANA MOORE MR#: [id number] Specimen #[id number] Source: 1: Cervical material, (ThinPrep vial, Imaging-assisted review) Clinical History Z01.419 Routine box maker paperboard exam without abnormal findings High Risk HPV DNA testing is requested if the diagnosis is ASC-US History of: Cervical lesion destruction LMP: 12/30/17 INTERPRETATION Cervical material, (ThinPrep vial, Imaging-assisted review): Specimen Adequacy: Satisfactory for evaluation. - Endocervical/transformatio n zone component present. Descriptive Diagnosis: Negative for intraepithelial lesion or malignancy. Wash Tub Machine Operator: JEOVANY Gerber(ASCP) Electronically Signed Out mathew/02/16/2018 [facility] Comment on above: Performed By: #### P PPVP #### [employer] [address] [id number] Vital Signs Date Time Vital Sign Value Performing Clinician Facility 10-20-2024 09:58-0400 Body height 175.26 cm Royal Martinez MD Work Phone: [facility] 10-20-2024 09:58-0400 Body mass index (BMI) [Ratio] 22.4 kg/m2 Royal Martinez MD Work Phone: [phone] [place] [address] 10-20-2024 09:58-0400 Body weight 68.94 kg Royal Martinez MD Work Phone: [phone] [address] 10-20-2024 09:58-0400 Diastolic blood pressure 81 mm[Hg] Royal Martinez MD Work Phone: 4([phone])[phone] [address] 10-20-2024 09:58-0400 Heart rate 72 /min Royal Martinez MD Work Phone: 7([phone])[phone] [address] 10-20-2024 09:58-0400 Systolic blood pressure 117 mm[Hg] Royal Martinez MD Work Phone: [phone] [place] [address] 10-19-2024 18:14-0400 Body height 175.26 cm Royal Martinez MD Work Phone: [phone] [address] 10-19-2024 18:14-0400 Body temperature 98.2 [degF] Royal Martinez MD Work Phone: 0([phone])[phone] [place] [address] 10-19-2024 18:14-0400 Body weight 67 kg Royal Martinez MD Work Phone: [facility] 10-19-2024 18:14-0400 Diastolic blood pressure 78 mm[Hg] Royal Martinez MD Work Phone: [phone] [place] [address] 10-19-2024 18:14-0400 Heart rate 75 /min Royal Martinez MD Work Phone: [facility] 10-19-2024 18:14-0400 Respiratory rate 18 /min Royal Martinez MD Work Phone: [facility] 10-19-2024 18:14-0400 SaO2% (BldA) [Mass fraction] 98 % Royal Martinez MD Work Phone: [facility] 10-19-2024 18:14-0400 Systolic blood pressure 145 mm[Hg] Royal Martinez MD Work Phone: [facility] 09-01-2024 09:26-0500 Body height 175.26 [facility] 09-01-2024 09:26-0500 Body mass index (BMI) [Ratio] 22.6 kg/m2 [facility] 09-01-2024 09:26-0500 Body weight 69.39 [facility] 09-01-2024 09:26-0500 Diastolic blood pressure 70 mm[Hg] [facility] 09-01-2024 09:26-0500 Heart rate 86 /min [facility] 09-01-2024 09:26-0500 SaO2% (BldA) [Mass fraction] 97 % [facility] 09-01-2024 09:26-0500 Systolic blood pressure 106 mm[Hg] [facility] 07-13-2024 10:39-0500 Body height 175.26 cm Yoandy Rory DO Work Phone: [facility] 07-13-2024 10:39-0500 Body mass index (BMI) [Ratio] 22.7 kg/m2 Yoandy Rory DO Work Phone: [facility] 07-13-2024 10:39-0500 Body weight 69.85 kg Yoandy Rory DO Work Phone: [facility] 07-13-2024 10:39-0500 Diastolic blood pressure 82 mm[Hg] Yoandy Rory DO Work Phone: [facility] 07-13-2024 10:39-0500 Heart rate 90 /min Yoandy Rory DO Work Phone: [facility] 07-13-2024 10:39-0500 Systolic blood pressure 130 mm[Hg] Yoandy Rory DO Work Phone: [facility] 07-06-2024 09:17-0500 Body mass index (BMI) [Ratio] 22.3 kg/m2 Jennifer Hobbs PA Work Phone: [facility] 07-06-2024 09:17-0500 Body weight 68.49 kg Jennifer Hobbs PA Work Phone: [facility] 07-06-2024 09:17-0500 Diastolic blood pressure 72 mm[Hg] Jennifer Melva PA Work Phone: [facility] 07-06-2024 09:17-0500 Systolic blood pressure 118 mm[Hg] Jennifer Santacruzey PA Work Phone: [facility] 06-14-2024 09:15-0500 Body height 175.26 cm Yoandy Rory DO Work Phone: [facility] 06-14-2024 09:15-0500 Body mass index (BMI) [Ratio] 23.1 kg/m2 Yoandy Rory DO Work Phone: [facility] 06-14-2024 09:15-0500 Body temperature 98.3 [degF] Yoandy Rory DO Work Phone: [facility] 06-14-2024 09:15-0500 Body weight 71.21 kg Yoandy Rory DO Work Phone: [facility] 06-14-2024 09:15-0500 Diastolic blood pressure 85 mm[Hg] Yoandy Rory DO Work Phone: [facility] 06-14-2024 09:15-0500 Heart rate 73 /min Yoandy Rory DO Work Phone: [facility] 06-14-2024 09:15-0500 Systolic blood pressure 116 mm[Hg] Yoandy Rory DO Work Phone: [facility] 05-23-2024 14:44-0500 Body mass index (BMI) [Ratio] 24.48 kg/m2 Jennifer GUTIERREZ Work Phone: [facility] 05-23-2024 14:44-0500 Body weight 75.18 kg Jennifer GUTIERREZ Work Phone: [facility] 04-14-2024 13:05-0400 Body height 175.26 cm [facility] 04-14-2024 13:05-0400 Body mass index (BMI) [Ratio] 25.7 kg/m2 [facility] 04-14-2024 13:05-0400 Body weight 79 [facility] 04-14-2024 13:05-0400 Diastolic blood pressure 84 mm[Hg] [facility] 04-14-2024 13:05-0400 Heart rate 70 /min [facility] 04-14-2024 13:05-0400 SaO2% (BldA) [Mass fraction] 98 % [facility] 04-14-2024 13:05-0400 Systolic blood pressure 120 mm[Hg] [facility] 03-22-2024 13:15-0400 Body mass index (BMI) [Ratio] 24.48 kg/m2 Yoandy Rory DO Work Phone: [facility] 03-22-2024 13:15-0400 Body weight 75.21 kg Yoandy Rory DO Work Phone: [facility] 03-22-2024 13:15-0400 Diastolic blood pressure 70 mm[Hg] Yoandy Rory DO Work Phone: [facility] 03-22-2024 13:15-0400 Systolic blood pressure 114 mm[Hg] Yoandy Rory DO Work Phone: [facility] 01-17-2024 15:18-0400 Body height 175.26 cm [facility] 01-17-2024 15:18-0400 Body mass index (BMI) [Ratio] 25.7 kg/m2 [facility] 01-17-2024 15:18-0400 Body weight 78.92 [facility] 01-17-2024 15:18-0400 Diastolic blood pressure 81 mm[Hg] [facility] 01-17-2024 15:18-0400 Heart rate 78 /min [facility] 01-17-2024 15:18-0400 Systolic blood pressure 127 mm[Hg] [facility] 01-05-2024 11:02-0400 Body height 177.8 cm Deepa Romp PA Work Phone: [facility] 01-05-2024 11:02-0400 Body mass index (BMI) [Ratio] 24.25 kg/m2 Deepa Romp PA Work Phone: [facility] 01-05-2024 11:02-0400 Body temperature 97.7 [degF] Deepa Romp PA Work Phone: [facility] 01-05-2024 11:02-0400 Body weight 76.66 kg Deepa Romp PA Work Phone: [facility] 01-05-2024 11:02-0400 Diastolic blood pressure 79 mm[Hg] Deepa Romp PA Work Phone: [facility] 01-05-2024 11:02-0400 Heart rate 68 /min Deepa Romp PA Work Phone: [facility] 01-05-2024 11:02-0400 Systolic blood pressure 122 mm[Hg] Deepa Romp PA Work Phone: [facility] 10-26-2023 11:04-0400 Body height 175.26 cm MD Royal Martinez Work Phone: [facility] 10-26-2023 11:04-0400 Body mass index (BMI) [Ratio] 25.8 kg/m2 MD Royal Martinez Work Phone: [facility] 10-26-2023 11:04-0400 Body weight 79.43 kg MD Royal Martinez Work Phone: [facility] 10-26-2023 11:04-0400 Diastolic blood pressure 86 mm[Hg] MD Royal Martinez Work Phone: [facility] 10-26-2023 11:04-0400 Heart rate 73 /min MD Royal Martinez Work Phone: [facility] 10-26-2023 11:04-0400 Systolic blood pressure 121 mm[Hg] MD Royal Martinez Work Phone: [facility] 09-28-2023 13:33-0400 Body height 175.26 cm [facility] 09-28-2023 13:33-0400 Body mass index (BMI) [Ratio] 24.8 kg/m2 [facility] 09-28-2023 13:33-0400 Body weight 76.43 [facility] 09-28-2023 13:33-0400 Diastolic blood pressure 91 mm[Hg] [facility] 09-28-2023 13:33-0400 Heart rate 64 /min [facility] 09-28-2023 13:33-0400 Systolic blood pressure 128 mm[Hg] [facility] 06-11-2023 10:15-0500 Body height 175.26 cm Royal Martinez Other [facility] Other 06-11-2023 10:15-0500 Body mass index (BMI) [Ratio] 25.99 kg/m2 Royal Martinez Other [facility] Other 06-11-2023 10:15-0500 Body weight 79.83 kg Royal Martinez Other [facility] Other 06-11-2023 10:15-0500 Diastolic blood pressure 76 mm[Hg] Royal Martniez Other [facility] Other 06-11-2023 10:15-0500 Systolic blood pressure 125 mm[Hg] Royal Martinez Other [facility] Other 03-11-2023 11:15-0400 Body height 175.26 cm Royal Martinez Other [employer] Other 03-11-2023 11:15-0400 Body mass index (BMI) [Ratio] 26.73 kg/m2 Royal Martinez Other [employer] Other 03-11-2023 11:15-0400 Body weight 82.1 kg Royal Martinez Other [employer] Other 03-11-2023 11:15-0400 Diastolic blood pressure 74 mm[Hg] Royal Martinez Other [employer] Other 03-11-2023 11:15-0400 Respiratory rate 20 /min Royal Martinez Other [employer] Other 03-11-2023 11:15-0400 Systolic blood pressure 118 mm[Hg] Royal Martinez Other [employer] Other 12-02-2022 09:00-0400 Body height 175.26 cm Royal Martinez Other [employer] Other 12-02-2022 09:00-0400 Body mass index (BMI) [Ratio] 26.73 kg/m2 Royal Martinez Other [employer] Other 12-02-2022 09:00-0400 Body weight 82.1 kg Royal Martinez Other [employer] Other 12-02-2022 09:00-0400 Diastolic blood pressure 72 mm[Hg] Royal Martinez Other [employer] Other 12-02-2022 09:00-0400 Systolic blood pressure 112 mm[Hg] Royal Martinez Other [employer] Other 09-02-2022 08:45-0500 Body height 175.26 cm Royal Martinez Other [employer] Other 09-02-2022 08:45-0500 Body mass index (BMI) [Ratio] 27.61 kg/m2 Royal Martinez Other [employer] Other 09-02-2022 08:45-0500 Body weight 84.82 kg Royal Martinez Other [employer] Other 09-02-2022 08:45-0500 Diastolic blood pressure 84 mm[Hg] Royal Martinez Other [employer] Other 09-02-2022 08:45-0500 SaO2% (BldA) [Mass fraction] 99 % Royal Martinez Other [employer] Other 09-02-2022 08:45-0500 Systolic blood pressure 142 mm[Hg] Royal Martinez Other [employer] 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); Hypothyroidism, unspecified type Start: 10-20-2024 End: 10-20-2024 ambulatory Royal Martinez MD Work Phone: [facility] Work Phone: Start: 10-20-2024 End: 10-20-2024 Patient encounter procedure Royal Martinez MD Work Phone: [facility] Work Phone: Start: 10-19-2024 End: 10-19-2024 Emergency department patient visit Royal Martinez MD Work Phone: [facility] Work Phone: Start: 10-11-2024 End: 10-11-2024 ambulatory RONNY MARTINEZ Facility:[facility] Start: 10-10-2024 Non-patient / Non-visit Royal Martinez MD Work Phone: [facility] Work Phone: Start: 09-08-2024 End: 09-08-2024 ambulatory [facility] Start: 09-01-2024 End: 09-01-2024 ambulatory [facility] Work Phone: Start: 09-01-2024 End: 09-01-2024 Patient encounter [facility] Work Phone: Start: 08-18-2024 End: 08-18-2024 Telemedicine consultation with patient Ronny Martinez MD Work Phone: Endocrinology Start: 08-18-2024 End: 08-18-2024 ambulatory Ronny Martinez MD Work Phone: Endocrinology Comment on above: Hypothyroidism, unsp ecified type (Primary Dx) Start: 07-25-2024 End: 07-25-2024 Phys/qhp telephone evaluation 5-10 min Yoandy Rory DO Work Phone: [facility] Comment on above: Hot flashes Start: 07-13-2024 End: 07-13-2024 ambulatory Yoandy Rory DO Work Phone: [facility] Work Phone: Start: 07-13-2024 End: 07-13-2024 Patient encounter procedure Yoandy Rory DO Work Phone: [facility] Work Phone: Start: 07-06-2024 End: 07-06-2024 Bamboo flowsheet Jennifer Hobbs PA Work Phone: [facility] Start: 07-06-2024 End: 07-06-2024 Bamboo flowsheet Jennifer Hobbs PA Work Phone: [facility] Start: 07-06-2024 End: 07-06-2024 ambulatory JENNIFER HOBBS Not Available Start: 07-06-2024 End: 07-06-2024 Postop follow up visit related to original px Jennifer Hobbs PA Work Phone: [facility] Comment on above: Postoperative visit; S/P hysterectomy Start: 06-19-2024 End: 08-21-2024 Telephone encounter Yoandy Rory DO Work Phone: [facility] Start: 06-14-2024 End: 06-14-2024 Patient encounter procedure Yoandy Rory DO Work Phone: [facility] Work Phone: Start: 05-23-2024 End: 05-23-2024 Postop follow up visit related to original px Jennifer GUTIERREZ Work Phone: [facility] Comment on above: S/P hysterectomy Start: 05-23-2024 End: 05-23-2024 ambulatory JENNIFER HOBBS Not Available Start: 05-23-2024 End: 05-23-2024 Bamboo flowsheet Jennifer Hobbs PA Work Phone: [facility] Start: 05-23-2024 End: 05-23-2024 Bamboo flowsheet Jennifer Hobbs PA Work Phone: [facility] Start: 05-18-2024 End: 05-18-2024 ambulatory Yoandy Rory DO Work Phone: [facility] Work Phone: Start: 05-18-2024 End: 05-18-2024 Patient encounter procedure Yoandy Rory DO Work Phone: [facility] Work Phone: Start: 05-16-2024 End: 05-16-2024 Clinisync Result Encounter Yoandy Rory DO Work Phone: [facility] Unsolicited Start: 05-16-2024 End: 05-16-2024 Clinisync Result Encounter Yoandy Rory DO Work Phone: [facility] Unsolicited Start: 05-16-2024 End: 05-16-2024 ambulatory Yoandy Rory [facility] Work Phone: Start: 05-16-2024 End: 05-16-2024 Departed Referred Yoandy Rory DO Work Phone: [facility] Start: 05-16-2024 Non-patient / Non-visit Yoandy Rory DO Work Phone: [facility] Work Phone: Start: 05-11-2024 End: 05-11-2024 Clinisync Result Encounter Yoandy Rory DO Work Phone: [facility] Unsolicited Start: 05-11-2024 End: 05-11-2024 Clinisync Result Encounter Yoandy Rory DO Work Phone: [facility] Unsolicited Start: 05-11-2024 Non-patient / Non-visit Yoandy Rory DO Work Phone: [facility] Work Phone: Start: 04-14-2024 End: 04-14-2024 Clinisync Result Encounter Yoandy Rory DO Work Phone: [facility] Unsolicited Start: 04-14-2024 End: 04-14-2024 Clinisync Result Encounter Yoandy Rory DO Work Phone: [facility] Unsolicited Start: 04-14-2024 End: 10-18-2024 ambulatory [facility] Work Phone: Start: 04-14-2024 End: 04-14-2024 Patient encounter procedure [facility] Work Phone: Start: 04-14-2024 Non-patient / Non-visit [facility] Work Phone: Start: 03-22-2024 End: 03-22-2024 Bamboo flowsheet Yoandy Rory DO Work Phone: [facility] Start: 03-22-2024 End: 03-22-2024 Bamboo flowsheet Yoandy Rory DO Work Phone: [facility] Start: 03-22-2024 End: 03-22-2024 Office outpatient visit 15 minutes Yoandy Rory DO Work Phone: [facility] Comment on above: Preop examination; Menorrhagia with regular cycle; Pelvic pain in female; Dyspareunia in female; Dysmenorrhea Start: 03-22-2024 End: 03-22-2024 Preprocedural examination done Yoandy Rory DO Work Phone: [facility] Work Phone: Start: 03-22-2024 End: 03-22-2024 ambulatory YOANDY RORY Not Available Start: 01-17-2024 End: 01-17-2024 ambulatory [facility] Work Phone: Start: 01-17-2024 End: 01-17-2024 Patient encounter procedure [facility] Work Phone: Start: 01-12-2024 End: 01-12-2024 ambulatory YOANDY RORY Not Available Start: 01-05-2024 End: 01-05-2024 Office outpatient new 45 minutes Deepa GUTIERREZ Work Phone: [facility] Comment on above: Nipple discharge (Pr imary Dx); Mass of upper outer quadrant of left breast; Inversion of left nipple; Other general symptoms and signs Start: 11-12-2023 Non-patient / Non-visit [facility] Work Phone: Start: 11-11-2023 ambulatory ROYAL MARTINEZ [facility] Start: 11-02-2023 Non-patient / Non-visit [facility] Work Phone: Start: 11-02-2023 End: 11-02-2023 ambulatory YOANDY RORY Not Available Start: 10-26-2023 End: 10-26-2023 ambulatory MD Royal Martinez Work Phone: [facility] Work Phone: Start: 10-26-2023 End: 10-26-2023 Patient encounter procedure MD Royal Martinez Work Phone: [facility] Work Phone: Start: 10-13-2023 End: 10-13-2023 ambulatory MD Royal Martinez Work Phone: [facility] Work Phone: Start: 10-13-2023 End: 10-13-2023 Departed Referred MD Royal Martinez Work Phone: [facility] Start: 10-13-2023 End: 10-13-2023 ambulatory YOANDY RORY Not Available Start: 09-28-2023 End: 09-28-2023 ambulatory [facility] Work Phone: Start: 09-28-2023 End: 09-28-2023 Patient encounter procedure [facility] Work Phone: Start: 09-21-2023 End: 09-21-2023 ambulatory YOANDY RORY Not Available Start: 08-26-2023 Non-patient / Non-visit [facility] Work Phone: Start: 08-26-2023 Non-patient / Non-visit [facility] Work Phone: Start: 08-02-2023 End: 08-02-2023 ambulatory YOANDY VALADEZ Not Available Start: 07-29-2023 End: 07-29-2023 ambulatory Royal Michelle Other [employer] Other Start: 07-29-2023 Telephone encounter Royal Martinez [facility] Start: 07-05-2023 Patient encounter procedure [facility]- Start: 07-02-2023 End: 07-02-2023 ambulatory Royal Michelle Other [employer] Other Start: 07-02-2023 Office outpatient vi sit 15 minutes Royal Michelle [facility] Start: 07-01-2023 End: 07-01-2023 ambulatory Royal Michelle Other [employer] Other Start: 07-01-2023 Telephone encounter Royal Michelle [facility] Start: 06-11-2023 End: 06-11-2023 ambulatory Royal Michelle Other [employer] Other Start: 06-11-2023 Office outpatient vi sit 15 minutes Royal Michelle [facility] Start: 06-03-2023 End: 06-03-2023 ambulatory Royal Michelle Other [employer] Other Start: 06-03-2023 Telephone encounter Royal Michelle [facility] Start: 06-02-2023 End: 06-02-2023 ambulatory Royal Michelle Other [employer] Other Start: 06-02-2023 Telephone encounter Royal Martinez [facility] Start: 05-27-2023 End: 05-27-2023 ambulatory Royal Martinez Other [employer] Other Start: 05-27-2023 Telephone encounter Royal Michelle [facility] Start: 05-06-2023 End: 05-06-2023 ambulatory Royal Martinez Other [employer] Other Start: 05-06-2023 Telephone encounter Royal Martinez [facility] Start: 04-14-2023 End: 04-14-2023 ambulatory Royal Martinez Other [employer] Other Start: 04-14-2023 Telephone encounter Royal Martinez [facility] Start: 04-08-2023 End: 04-08-2023 ambulatory Royal Martinez Other [employer] Other Start: 04-08-2023 Telephone encounter Royal Martinez [facility] Start: 04-01-2023 End: 04-01-2023 ambulatory Royal Martinez Other [employer] Other Start: 04-01-2023 Telephone encounter Royal Martinez [facility] Start: 03-11-2023 End: 03-11-2023 ambulatory Royal Martinez Other [employer] Other Start: 03-11-2023 Office outpatient vi sit 15 minutes Royal Martinez [facility] Start: 02-11-2023 End: 02-11-2023 ambulatory Royal Martinez Other [employer] Other Start: 02-11-2023 Telephone encounter Royal Martinez [facility] Start: 01-14-2023 End: 01-14-2023 ambulatory Royal Martinez Other [employer] Other Start: 01-14-2023 Telephone encounter Royal Martinez [facility] Start: 12-17-2022 End: 12-17-2022 ambulatory Royal Martinez Other [employer] Other Start: 12-17-2022 Telephone encounter Royal Martinez [facility] Start: 12-02-2022 End: 12-02-2022 ambulatory Royal Martinez Other [employer] Other Start: 12-02-2022 Office outpatient vi sit 15 minutes Royal Martinez [facility] Start: 11-20-2022 End: 11-20-2022 ambulatory Royal Martinez Other [employer] Other Start: 11-20-2022 Telephone encounter Royal Martinez [facility] Start: 10-27-2022 End: 10-27-[address] YOANDY VALADEZ . Facility:[facility] Start: 10-22-2022 End: 10-22-2022 ambulatory Royal Michelle Other [employer] Other Start: 10-22-2022 Telephone encounter Royal Martinez [facility] Start: 09-24-2022 End: 09-24-2022 ambulatory Royal Michelle Other [employer] Other Start: 09-24-2022 Telephone encounter Royal Martinez [facility] Start: 09-02-2022 End: 09-02-2022 ambulatory Royal Martinez Other [employer] Other Start: 09-02-2022 Office outpatient vi sit 15 minutes Royal Martinez [facility] Start: 08-28-2022 End: 08-28-2022 ambulatory Royal Michelle Other [employer] Other Start: 08-28-2022 Telephone encounter Royal Martinez [facility] Start: 04-30-2022 Gynecological examin ation normal Royal Michelle Other [employer] Other Start: 04-20-2022 End: 04-20-2022 ambulatory MARIO FIELD . Facility:[facility] Start: 11-10-2021 End: 11-10-2021 Pre-procedure evaluation check Royal Michelle Other [employer] Other Start: 10-13-2018 End: 10-14-2018 Patient encounter procedure [facility] Start: 01-27-2018 Encounter for gyneco logical examination (general) (routine) without abnormal findings [facility] Start: 01-27-2018 End: 01-28-2018 Patient encounter procedure [facility] Procedures Date Procedure Procedure Detail Performing Clinician Start: 05-16-2024 ALL CBC WITH AUTO DIFF Yoandy Rory DO Work Phone: Start: 05-11-2024 Antibody screen Yoandy F azio DO Work Phone: Start: 05-11-2024 ALL BASIC METABOLIC PANEL Yoandy Rory DO Work Phone: Start: 05-11-2024 ALL CBC WITH AUTO DIFF Yoandy Rory DO Work Phone: Start: 05-11-2024 ALL TYPE AND SCREEN Cor ey Rory DO Work Phone: Start: 05-11-2024 [facility] APTT Yoandy Fazi o DO Work Phone: Start: 05-11-2024 [facility] LIVER PANEL Yoandy Rory DO Work Phone: Start: 05-11-2024 SRM[facility] PROTHROMBIN T JUJU INR W/O COUM Yoandy Rory DO Work Phone: Start: 04-14-2024 Antibody screen Yoandy F azio DO Work Phone: Start: 04-14-2024 ALL BASIC METABOLIC PANEL Yoandy Rory DO Work Phone: Start: 04-14-2024 ALL TYPE AND SCREEN Cor ey Rory DO Work Phone: Start: 04-14-2024 [facility] LIVER PANEL Yoandy Rory DO Work Phone: Start: 01-05-2024 Adult depression scr eening assessment Deepa GUTIERREZ Work Phone: Start: 11-02-2023 Microscopic observat ion [Identifier] in Cervix by Cyto stain Deepa GUTIERREZ Work Phone: Start: 10-13-2018 Cul bact xcpt urine blood/stool aerobic isol JOSÉ SOSA Start: 01-27-2018 Cytopathology proced ure, preparation of smear, genital source [place] Start: 11-30-2016 Pre-surgery evaluation Royal Martinez Other End: 09-12-2021 Depression screening Royal Martinez Other End: 12-09-2020 Diabetes mellitus screening Royal Martinez Other H/O: hysterectomy S/P hysterectomy Jennifer GUTIERREZ Work Phone: H/O: hysterectomy S/P hysterectomy Jennifer GUTIERREZ Work Phone: Plan of Treatment Date Care Activity Detail Author Start: 11-01-2026 Screening for malignant neoplasm of cervix Pap Smear [facility] Start: 09-08-2025 Screening for malignant neoplasm of breast Mammogram Screening [facility] Start: 03-07-2025 End: 03-07-2025 Patient encounter procedure 03/07/2025 11:00 AM EDT Office Visit Endocrinology [address] [place] [address] Ronny Martinez MD [address] [place] [address] F/U 6 months In Person Endocrinology Comment on above: F/U 6 months In Person Start: 02-26-2025 Influenza vaccination Influenza Vaccine (Season Ended) [facility] Start: 01-16-2025 End: 01-16-2025 Patient encounter procedure 01/16/2025 11:00 AM EDT Office Visit [facility] [address] [address] Yoandy Valadez DO [address] [place], [place] [id number] [facility] Start: 01-04-2025 Adult BMI Screening Adult BMI Screening [facility] Start: 01-04-2025 Depression Screening Depression Screening [facility] Start: 01-04-2025 Tobacco Screening Tobacco Screening [facility] Start: 11-08-2024 End: 11-08-2024 Patient encounter procedure 11/08/2024 10:00 AM EDT Office Visit Neurology Pain [address] [place] [address] Jeovany Eid DO [address] [place] [address] Fibromyalgia Neurology Pain Comment on above: Fibromyalgia Start: 10-28-2024 End: 01-27-2025 ACTH STIMULATION,3 TIME POINTS ACTH STIMULATION,3 TIME POINTS Lab Routine Low serum adrenocorticotrophic hormone (ACTH) Expected: 10/28/2024, Expires: 01/27/2025 [facility] Work Phone: Comment on above: Expected: 10/28/2024, Expires: Start: 08-18-2024 End: 11-17-2024 Corticotropin [Mass/volume] in Plasma ACTH BLD Lab Routine Hypothyroidism, unspecified type Expected: 08/18/2024, Expires: 11/17/2024 [facility] Comment on above: Expected: 08/18/2024, Expires: Start: 08-18-2024 End: 11-17-2024 Cortisol [Mass/volume] in Serum or Plasma CORTISOL, SERUM Lab Routine Hypothyroidism, unspecified type Expected: 08/18/2024, Expires: 11/17/2024 [facility] Comment on above: Expected: 08/18/2024, Expires: Start: 08-18-2024 End: 11-17-2024 THYROID PEROXIDASE ANTIBODY THYROID PEROXIDASE ANTIBODY Lab Routine Hypothyroidism, unspecified type Expected: 08/18/2024, Expires: 11/17/2024 [facility] Comment on above: Expected: 08/18/2024, Expires: Start: 08-18-2024 End: 11-17-2024 Thyrotropin [Units/volume] in Serum or Plasma THYROID STIMULATING HORMONE Lab Routine Hypothyroidism, unspecified type Expected: 08/18/2024, Expires: 11/17/2024 [facility] Work Phone: Comment on above: Expected: 08/18/2024, Expires: Start: 08-02-2024 Screening for malignant neoplasm of breast Mammogram Screening [facility] Start: 07-13-2024 Patient referral [facility] Work Phone: Start: 05-23-2024 End: 05-23-2024 Patient encounter procedure 05/23/2024 2:10 PM EST Office Visit [facility] [address] [place] [address] Jennifer Hobbs PA [address] [place], [place] [id number] [facility] Start: 04-20-2024 Chart abstracting 04/20/2024 Abstract [facility] [address] [facility] [place] [address] Yoandy Valadez, DO [address] [place], [place] [id number] [facility] Start: 04-20-2024 End: 04-20-2024 Patient encounter procedure 04/20/2024 1:00 PM EDT Procedure Visit [facility] Yoandy Valadez, DO [address] [place], [place] [id number] [facility] Start: 03-22-2024 End: 03-22-2024 Patient encounter procedure 03/22/2024 1:10 PM EDT Procedure Visit [facility] [address] [facility] [place] [address] Yoandy Valadez, DO [address] [place], [place] [id number] Arrived [facility] Comment on above: Arrived Start: 02-27-2024 Covid-19 Vaccine () Covid-19 Vaccine ( season) [facility] Start: 02-27-2024 Influenza vaccination [facility] Start: 01-05-2024 End: 01-04-2025 MG Breast Diagnostic Mammography diagnostic bilateral with CAD Imaging Routine Mass of upper outer quadrant of left breast Inversion of left nipple Expected: 01/05/2024, Expires: 01/04/2025 [facility] Comment on above: Expected: 01/05/2024, Expires: Start: 01-05-2024 End: 01-04-2025 US Breast - left limited Ultrasound breast limited left Imaging Routine Mass of upper outer quadrant of left breast Inversion of left nipple Expected: 01/05/2024, Expires: 01/04/2025 [facility] Work Phone: Comment on above: Expected: 01/05/2024, Expires: Start: 2002 Screening for malignant neoplasm of cervix Cervical Cancer Screening [facility] Start: 2000 DTaP,Tdap and Td Vaccines (1 - Tdap) DTaP,Tdap and Td Vaccines (1 - Tdap) [facility] Start: 2000 Hepatitis B Vaccine (1 of 3 - 19+ 3-dose series) Hepatitis B Vaccine (1 of 3 - 19+ 3-dose series) [facility] Start: 2000 Urine microalbumin profile DTaP,Tdap,Td Vaccine (1 - Tdap) [facility] Start: 1999 Annual PCP Team Chronic Disease Visit Annual PCP Team Chronic Disease Visit [facility] Start: 1999 Anxiety Screening Anxiety Screening [facility] Start: 1999 Depression Screening Depression Screening [facility] Start: 1999 Hepatitis C screening Hepatitis C Screening [facility] Start: 1999 HIV screening HIV Screening [facility] Start: 1981 Tobacco Counseling Tobacco Counseling [facility] Patient referral [facility] Work Phone: End: 01-04-2025 Prolactin Prolactin Lab Routine Nipple discharge 1 Occurrences starting 01/05/2024 until 01/04/2025 [facility] Comment on above: 1 Occurrences starting 01/05/2024 until 01/04/2025 End: 01-04-2025 Thyroid profile includes TSH FT4 Thyroid profile includes TSH FT4 Lab Routine Nipple discharge Other general symptoms and signs 1 Occurrences starting 01/05/2024 until 01/04/2025 [facility] Comment on above: 1 Occurrences starting 01/05/2024 until 01/04/2025 XR Lumbar spine 2 or 3 Views [facility] Payers Date Payer Category Payer Medicare (Managed Care) [employer] [id number] 2023 Private Health Insurance [employer]OTED [facility] HMO [id number] 2023 Unknown [employer] D [employer] [id number] 2023-Present [address] [place] [address] [id number] 2023 Medicare [id number] 2023 Medicare [id number] 2020 Medicaid [id number] 2019 Medicare [id number] 2019 Medicare ANTH MEDICARE [facility] [id number] 2019-Present [phone] [address] [place] [address] [id number] 2016 Unknown [id number] 2014 Medicare [id number] 2013 Medicare [id number] 1981 Unknown [id number] 2.16.840.1.410095.3.579.2. 173 1981 Unknown [id number] 2.16.840.1.997263.3.579.2. 173 1981 Unknown [id number] 2.16.840.1.237764.3.579.2. 593 1981 Unknown [id number] 2.16.840.1.359697.3.579.2. 593 1981 Unknown [id number] 2.16.840.1.542013.3.579.2. 1286 1981 Unknown [id number] 2.16.840.1.693667.3.579.2. 1286 1981 Unknown [id number] 2.16.840.1.170808.3.579.2. 1286 1981 Unknown [id number] 2.16.840.1.770018.3.579.2. 1286 1981 Unknown [id number] 2.16.840.1.161225.3.579.2. 1259 1981 Unknown [id number] 2.16.840.1.130836.3.579.2. 1259 1981 Unknown [id number] 2.16.840.1.238844.3.579.2. 1259 1981 Unknown [id number] 2.16.840.1.583386.3.579.2. 1259 1981 Unknown [id number] 2.16.840.1.339636.3.579.2. 1259 1981 Unknown [id number] 2.16.840.1.189306.3.579.2. 1259 1981 Unknown [id number] 2.16.840.1.283740.3.579.2. 1259 1981 Unknown [id number] 2.16.840.1.078130.3.579.2. 1259 1981 Unknown [id number] 2.16.840.1.959999.3.579.2. 1286 1981 Unknown [id number] 2.16.840.1.824288.3.579.2. 1286 1959 Medicaid [id number] [id number] 1959 Medicare [id number] 2.16.840.1.183666.19 Social History Date Type Detail Facility Start: 04-13-2023 End: 07-26-2023 Sex Assigned At [facility] Other Start: 07-05-2023 End: 10-19-2024 Tobacco smoking status MAIS Smoker (finding) [facility] Start: 1980 Sex Assigned At Female [facility] Start: 02-02-2023 Tobacco smoking status MAIS Ex-smoker [facility] History of tobacco use Cigarette Smoker P [facility] Start: 03-22-2024 End: 07-06-2024 Alcoholic beverage intake Current drinker of alcohol (finding) [facility] Start: 04-13-2023 End: 07-26-2023 History of Social function [facility] Start: 1981 Sex assigned at Not on file [facility] Start: 05-18-2024 End: 10-20-2024 Sex Female (finding) [facility] Start: 01-05-2024 Tobacco smoking status [facility] Occasional tobacco smoker [facility] Start: 01-05-2024 Tobacco use and exposure Smokeless tobacco non-user [facility] Start: 01-05-2024 Alcoholic beverage intake Ex-drinker (finding) [facility] Adolescent depressio n screening assessment 9 [facility] Start: 09-30-2016 Alcohol Comment rarely [facility] Tobacco smoking stat us NHIS Tobacco smoking consumption unknown [facility] Medical Equipment Procedure Code Equipment Code Equipment Origin al Text Equipment Identifier Dates [facility] - [id number] Start: 12-02-2016 Comment on above: Description: KIT CON TAINS 4 ANCHORS [facility] - [id number] Start: 04-13-2018 Clinical Notes 04-20-2022 to 10-30-2024 Indu Mckeon LPN - 10/27/2024 11:00 AM Indu Stokes LPN - 10/27/2024 11:00 AM Ronny Vinson MD - 10/27/2024 11:00 AM EDT Note Date & Type Note Facility 10-30-2024 Note HNO ID: [id number] Author: ?, ?, ? Service: ? Author Type: ? Type: Progress Notes Filed: 10/30/2024 08:35 Note Text: Patient is scheduled in four months, in person. Would rather keep this in person visit, than schedule in six months [facility] 10-27-2024 History and physical note Labs 10/11/2024 [facility] 10-27-2024 History and physical note Labs 10/11/2024 documented in this encounter [facility] 10-27-2024 History of Present illness Narrative Images from the original note were not included. VIRTUAL VISIT PROGRESS NOTE This is a virtual visit using [employer] Video Visit. It required patient-provider interaction for the medical decision making as documented below. I have communicated my name and active licensure. The patient's identity and physical location were verified at the time of this visit. 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 Ana Moore is a 44 year old female seen for hypothyroidism.. Last visit 08/18/24. HISTORY REVIEWED (electronic chart updated): No past medical history on file. No past surgical history on file. No family history on file. Current Outpatient Medications Medication Sig ZANAFLEX 4 mg tablet Take 4 mg by mouth once daily. magnesium aspart,citrate,oxide (TRIPLE MAGNESIUM COMPLEX) 400 mg magnesium cap Take 400 mg by mouth once daily. NURTEC ODT 75 mg disintegrating tablet Take 75 mg by mouth once daily as needed. fluticasone (FLONASE) 50 mcg/actuation nasal spray Use 2 Sprays in each nostril once daily. albuterol HFA (PROVENTIL HFA, VENTOLIN HFA) 90 mcg/actuation inhaler Inhale 2 Puffs as instructed every 4 hours as needed. albuterol (PROVENTIL) 2.5 mg /3 mL (0.083 %) nebulizer solution Inhale 2.5 mg as instructed every 4 hours as needed. budesonide-formoterol (SYMBICORT) 80-4.5 mcg/actuation inhaler Inhale as instructed every 24 hours. buPROPion XL (WELLBUTRIN XL) 300 mg 24 hr tablet Take by mouth every 24 hours. montelukast (SINGULAIR) 10 mg tablet Take 1 tablet by mouth every afternoon. pregabalin (LYRICA) 150 mg capsule Take 150 mg by mouth two times a day. levothyroxine (SYNTHROID) 75 mcg tablet Take 1 tablet by mouth every afternoon. cephALEXin (KEFLEX) 500 mg capsule TAKE 1 CAPSULE (500 MG) BY MOUTH IN THE MORNING AND 1 CAPSULE (500 MG) BEFORE BEDTIME. oxyCODONE-acetaminophen (PERCOCET) 7.5-325 mg tablet Take 1 tablet by mouth every 12 hours. VITAMIN PLUS LOW IRON 27 mg iron- 1 mg Take 1 tablet by mouth every morning. predniSONE (DELTASONE) 20 mg tablet TAKE 3 TABLETS BY MOUTH DAILY FOR 3 DAYS, then TAKE 2 TABLETS DAILY FOR 3 DAYS, then TAKE 1 TABLET DAILY FOR 3 DAYS No current facility-administered medications for this visit. ALLERGIES Allergen Reactions Butalbital-Acetamin* Unknown Cyclobenzaprine Unknown Diphenhydramine Other: See Comments irritable irritable Fibrinolysin Unknown Iodinated Contrast * Unknown Progesterone Swelling Sertraline Unknown Topiramate Unknown Tramadol Unknown Varenicline Unknown HPI/INTERVAL HC: 44 yo female patient presenting for follow up of hypothyroidism. Diagnosed with hypothyroidism 1 year after 3 yo son was born. Has been on Levothyroxine 75 mcg one tab daily since. Takes appropriately in am. Recent TSH is normal. Started Biotin supplement 68495 mcg daily, after recent lab work. We checked cortisol and ACTH after last visit considering sx, below and frequent steroids use for fibromyalgia and Asthma. Cortisol was low normal, ACT low. Gets steroids for Fibromyalgia flare/asthma every 1-3 months. This can be Medrol pack or short course of Prednisone( for a week) for few years. Has Medrol pack in Jul to Asthma, and again in August, for Fibromylagia so pushed blood work for 10 days after the Medrol pack. Patient continues to feel exhausted all the time. Had hysterectomy Apr 2024 for menorrhagia, ovaries left in. Unintentional 14 pds weight loss since hysterectomy. Previously lost intentionally 84 pds after starting Levothyroxine and was happy with it. Periods heavy and irregular before surgery. Working with Radiation Control Specialist, considering low dose E, but she is reluctant.Issus with migraine, anxiety,. Has had some night sweats, was better on a new BP med started by PCP., but worse in the last month. Niece and great niece who is 16 yo, have zane's disease and on thyroid hormone. Answers submitted by the patient for this visit: Core Review of Systems (Submitted on 10/26/2024) Fever : No Night sweats: Yes Recent unintentional weight change: No Nasal Congestion: No Hearing Loss: No Vision Disturbance: No A cough: Yes Difficulty Breathing?: No Chest pain: No Irregular heartbeat: No Leg Swelling: No Nausea: Yes Diarrhea: No Black tarry stools: No Difficulty Urinating?: No Awaken at Night More Than Once to Urinate?: Yes Joint pain or stiffness: Yes Muscle aches: Yes Leg or Foot Discomfort at Night?: Yes A rash: No Dizziness: Yes Headaches: Yes Memory Loss: No Seizures: No PHYSICAL EXAMINATION: VIDEO EXAM: (if completed, performed via video enabled technology) GENERAL: alert and appropriate, in no distress, well-hydrated, well nourished, and happy, smiling, interactive NECK: full ROM, no cervical LNs noted Per recent box maker paperboard note care everywhere: LABS: Latest Ref Rng 10/11/2024 TSH 0.270 - 4.200 mIU/L 1.140 THYROID PEROXIDASE ANTIBODY <5.6 IU/mL <3.0 Cortisol 4.8 - 19.5 ug/dL 5.3 ACTH 7.2 - 63.3 pg/mL 5.0 (L) ASSESSMENT/PLAN: 44 yo female patient presenting for follow up of hypothyroidism. Patient is currently on Levothyroxine 75 mcg daily. TFTs are good on this dose. s/p Hysterectomy Apr 2024 and lots of sx since. Cannot r/o female hormonal imbalance contributing to sx. ACTH/Cortisol ordered last visit in view of weight loss. AM cortisol low normal. ACTH low. Hx of steroids use for fibromyalgia/asthma. So possible HPA suppression. Discussed labs with patient. Schedule ACTH stim test. Patient is close to [facility] in [place] and would like to get it there. Follow with Radiation Control Specialist for hormonal concerns. Consider seeing [facility]. Tentative thyroid f/u 6 months. Some elements copied from my note 08/18/24 which have been updated where appropriate, and all reflect current medical decision making from date of this visit. Ronny Martinez MD documented in this encounter [facility] 10-27-2024 Note HNO ID: [id number] Author: RONNY MARTINEZ MD Service: ? Author Type: Physician Type: Progress Notes Filed: 10/28/2024 18:07 Note Text: VIRTUAL VISIT PROGRESS NOTE This is a virtual visit using [employer] Z[employer] Video Visit. It required patient-provider interaction for the medical decision making as documented below. I have communicated my name and active licensure. The patient's identity and physical location were verified at the time of this visit. 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 Ana Moore is a 44 year old female seen for hypothyroidism.. Last visit 08/18/24. HISTORY REVIEWED (electronic chart updated): No past medical history on file. No past surgical history on file. No family history on file. Current Outpatient Medications Medication Sig ZANAFLEX 4 mg tablet Take 4 mg by mouth once daily. magnesium aspart,citrate,oxide (TRIPLE MAGNESIUM COMPLEX) 400 mg magnesium cap Take 400 mg by mouth once daily. NURTEC ODT 75 mg disintegrating tablet Take 75 mg by mouth once daily as needed. fluticasone (FLONASE) 50 mcg/actuation nasal spray Use 2 Sprays in each nostril once daily. albuterol HFA (PROVENTIL HFA, VENTOLIN HFA) 90 mcg/actuation inhaler Inhale 2 Puffs as instructed every 4 hours as needed. albuterol (PROVENTIL) 2.5 mg /3 mL (0.083 %) nebulizer solution Inhale 2.5 mg as instructed every 4 hours as needed. budesonide-formoterol (SYMBICORT) 80-4.5 mcg/actuation inhaler Inhale as instructed every 24 hours. buPROPion XL (WELLBUTRIN XL) 300 mg 24 hr tablet Take by mouth every 24 hours. montelukast (SINGULAIR) 10 mg tablet Take 1 tablet by mouth every afternoon. pregabalin (LYRICA) 150 mg capsule Take 150 mg by mouth two times a day. levothyroxine (SYNTHROID) 75 mcg tablet Take 1 tablet by mouth every afternoon. cephALEXin (KEFLEX) 500 mg capsule TAKE 1 CAPSULE (500 MG) BY MOUTH IN THE MORNING AND 1 CAPSULE (500 MG) BEFORE BEDTIME. oxyCODONE-acetaminophen (PERCOCET) 7.5-325 mg tablet Take 1 tablet by mouth every 12 hours. VITAMIN PLUS LOW IRON 27 mg iron- 1 mg Take 1 tablet by mouth every morning. predniSONE (DELTASONE) 20 mg tablet TAKE 3 TABLETS BY MOUTH DAILY FOR 3 DAYS, then TAKE 2 TABLETS DAILY FOR 3 DAYS, then TAKE 1 TABLET DAILY FOR 3 DAYS No current facility-administered medications for this visit. ALLERGIES Allergen Reactions Butalbital-Acetamin* Unknown Cyclobenzaprine Unknown Diphenhydramine Other: See Comments irritable irritable Fibrinolysin Unknown Iodinated Contrast * Unknown Progesterone Swelling Sertraline Unknown Topiramate Unknown Tramadol Unknown Varenicline Unknown HPI/INTERVAL HC: 44 yo female patient presenting for follow up of hypothyroidism. Diagnosed with hypothyroidism 1 year after 3 yo son was born. Has been on Levothyroxine 75 mcg one tab daily since. Takes appropriately in am. Recent TSH is normal. Started Biotin supplement 45827 mcg daily, after recent lab work. We checked cortisol and ACTH after last visit considering sx, below and frequent steroids use for fibromyalgia and Asthma. Cortisol was low normal, ACT low. Gets steroids for Fibromyalgia flare/asthma every 1-3 months. This can be Medrol pack or short course of Prednisone( for a week) for few years. Has Medrol pack in Jul to Asthma, and again in August, for Fibromylagia so pushed blood work for 10 days after the Medrol pack. Patient continues to feel exhausted all the time. Had hysterectomy Apr 2024 for menorrhagia, ovaries left in. Unintentional 14 pds weight loss since hysterectomy. Previously lost intentionally 84 pds after starting Levothyroxine and was happy with it. Periods heavy and irregular before surgery. Working with Radiation Control Specialist, considering low dose E, but she is reluctant.Issus with migraine, anxiety,. Has had some night sweats, was better on a new BP med started by PCP., but worse in the last month. Niece and great niece who is 16 yo, have zane's disease and on thyroid hormone. Answers submitted by the patient for this visit: Core Review of Systems (Submitted on 10/26/2024) Fever : No Night sweats: Yes Recent unintentional weight change: No Nasal Congestion: No Hearing Loss: No Vision Disturbance: No A cough: Yes Difficulty Breathing?: No Chest pain: No Irregular heartbeat: No Leg Swelling: No Nausea: Yes Diarrhea: No Black tarry stools: No Difficulty Urinating?: No Awaken at Night More Than Once to Urinate?: Yes Joint pain or stiffness: Yes Muscle aches: Yes Leg or Foot Discomfort at Night?: Yes A rash: No Dizziness: Yes Headaches: Yes Memory Loss: No Seizures: No PHYSICAL EXAMINATION: VIDEO EXAM: (if completed, performed via video enabled technology) GENERAL: alert and appropriate, in no distress, well- (more content not included)... [facility] 09-01-2024 Evaluation note Diagnosis Onset Date Resolution Anxiety acute September 01 9:17am Asthma exacerbation acute September 01, 2024 9:17am Fibromyalgia acute September 01, 025 9:17am Thoracic back pain acute September 01, 2024 9:17am [facility] Work Phone: 1(508) 621-287203-03-2025 NoteHNO ID: [id number] Author: ?, ?, ? Service: ? Author Type: ? Type: Progress Notes Filed: 08/28/2024 11:35 Note Text: Pt is scheduled on 03/07/25[facility]02-21-2025 History and physical note* Indu Mckeon LPN - 08/18/2024 10:00 AM EST Patient states she was diagnosed shortly after her son was born a few years ago. States she had labs then but wasn't sure if labs were needed for today's appointment. [facility]02-21-2025 History and physical note* Indu Mckeon LPN - 08/18/2024 10:00 AM EST Patient states she was diagnosed shortly after her son was born a few years ago. States she had labs then but wasn't sure if labs were needed for today's appointment. [facility] History of Present illness Narrative* Ronny Martinez MD - 08/18/2024 10:00 AM EST Images from the original note were not included. VIRTUAL VISIT PROGRESS NOTE This is a virtual visit using [employer] Video Visit. It required patient- provider interaction for the medical decision making as documented below. I have communicated my name and active licensure. The patient's identity and physical location wereverified at the time of this visit. Either the patient or their legal public utilities sales representative has been informed of the risks and benefits of -- and alternatives to -- treatment through a remote evaluation andconsents to proceed with the evaluation remotely. Ana Moore is a 44 year old female seen for hypothyroidism.. HISTORY REVIEWED (electronic chart updated): No past medical history on file. No past surgical history on file. No family history on file. Current Outpatient Medications Medication Sig albuterol HFA (PROVENTIL HFA, VENTOLIN HFA) 90 mcg/actuation inhaler Inhale 2 Puffs as instructed every 4 hours as needed. albuterol (PROVENTIL) 2.5 mg /3 mL (0.083 %) nebulizer solution Inhale 2.5 mg as instructed every 4hours as needed. budesonide-formoterol (SYMBICORT) 80-4.5 mcg/actuation inhaler Inhale as instructed every 24 hours. buPROPion XL (WELLBUTRIN XL) 300 mg 24 hr tablet Take by mouth every 24 hours. montelukast (SINGULAIR) 10 mg tablet Take 1 tablet by mouth every afternoon. pregabalin (LYRICA) 150 mg capsule Take 150 mg by mouth two times a day. levothyroxine (SYNTHROID) 75 mcg tablet Take 1 tablet by mouth every afternoon. cephALEXin (KEFLEX) 500 mg capsule TAKE 1 CAPSULE (500 MG) BY MOUTH IN THE MORNING AND 1 CAPSULE (500 MG) BEFORE BEDTIME. oxyCODONE-acetaminophen (PERCOCET) 7.5-325 mg tablet Take 1 tablet by mouth every 12 hours. VITAMIN PLUS LOW IRON 27 mg iron- 1 mg Take 1 tablet by mouth every morning. predniSONE (DELTASONE) 20 mg tablet TAKE 3 TABLETS BY MOUTH DAILY FOR 3 DAYS, then TAKE 2 TABLETS DAILY FOR 3 DAYS, then TAKE 1 TABLET DAILY FOR 3 DAYS No current facility-administered medications for this visit. ALLERGIES Allergen Reactions Butalbital-Acetamin* Unknown Cyclobenzaprine Unknown Diphenhydramine Other: See Comments irritable irritable Fibrinolysin Unknown Iodinated Contrast * Unknown Progesterone Swelling Sertraline Unknown Topiramate Unknown Tramadol Unknown Varenicline Unknown HPI: 44 yo female patient presenting for eval and management of hypothyroidism. Diagnosed with hypothyroidism 1 year after 3 yo son was born. Has been on Levothyroxine 75 mcg one tab daily since. Takes appropriately in am. TSH normal a year ago. Not on Biotin/hair nail skin supplement. Has not been feeling right. Exhausted all the time. Had hysterectomy Apr 2024 for menorrhagia, ovaries left in. Unintentional 14 pds weight loss since hysterectomy. Previously lost intentionally 84 pds after starting Levothyroxine and was happy with it. Periods heavy and irregular before surgery. Working with Radiation Control Specialist, considering low dose E, but she is reluctant. Lots of migraine, anxiety, some CP on and off. Has had some night sweats, but better on a new BP med started by PCP. Gets steroids for Fibromyalgia flare/asthma every 1-3 months. This can be Medrol pack or short course of Prednisone( for a week) for few years. Just started Medrol pack yesterday for asthma/bronchitis. Niece and great niece who is 16 yo, have zane's disease and on thyroid hormone REVIEW OF SYSTEMS: Answers submitted by the patient for this visit: Endocrine Review of Systems (Submitted on 08/18/2024) Fatigue: Yes Night sweats: Yes Skin Color Changes: Yes Post-Nasal Drip: Yes Trouble Swallowing: Yes Vision Disturbance: Yes Chest pain: Yes Leg Swelling: Yes Blood Clots?: No Leg Pain while walking?: Yes Difficulty Breathing?: Yes Heartburn: No Nausea: Yes Vomiting: No Diarrhea: Yes Constipation: No Abdominal pain: Yes Bone Pain?: Yes Muscle aches: Yes Muscle weakness: Yes Joint pain or stiffness: Yes Headaches: Yes Dizziness: Yes Numbness?: Yes Urgency to Urinate?: No Increased Urination: Yes Slow or Small Urine Stream?: No Flushing: Yes Hot Flashes?: No Change in Body Hair?: Yes Cold Intolerance: Yes Heat Intolerance: No PHYSICAL EXAMINATION: VIDEO EXAM: (if completed, performed via video enabled technology) GENERAL: alert and appropriate, in no distress, well-hydrated, well nourished, and happy, smiling, interactive NECK: full ROM, no cervical LNs noted Per recent box maker paperboard note care everywhere: LABS: ASSESSMENT/PLAN: 44 yo female patient presenting for eval and management of hypothyroidism. Patient is currently on Levothyroxine 75 mcg daily. Normal TSH a year ago. s/p Hysterectomy Apr 2024 and lots of sx since. Hard to assess thyroid status clinically and not sure sx are thyroid related but would get TFTs as in any rate those have not been checked for close to a year. Would also r/o AI in view of weight loss. Cannot r/o female hormonal imbalance causing sx. Check TFTs, am cortisol , but wait at least 2 weeks after finishing Medrol pack. Follow with PCP re CP and other issues. Follow with Radiation Control Specialist for hormonal concerns. Consider seeing [facility]. Tentative thyroid f/u 6 months. I spent a total of 45 minutes on the date of the service which included preparing to see the patient, [id number] patient care, completing clinical documentation, obtaining and/or reviewing separately obtained history, performing a medically appropriate examination, counseling and educating the pat ient, ordering medications, tests, or procedures and care coordination. Ronny Martinez MD documented in this [facility]25 NoteHNO ID: [id number] Author: RONNY MARTINEZ MD Service: ? Author Type: Physician Type: Progress Notes Filed: 08/25/2024 23:36 Note Text: VIRTUAL VISIT PROGRESS NOTE This is a virtual visit using [employer] Video Visit. It required patient-provider interaction for the medical decision making as documented below. I have communicated my name and active licensure. The patient's identity and physical location were verified at the time of this visit. 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 Ana Moore is a 44 year old female seen for hypothyroidism.. HISTORY REVIEWED (electronic chart updated): No past medical history on file. No past surgical history on file. No family history on file. Current Outpatient Medications Medication Sig albuterol HFA (PROVENTIL HFA, VENTOLIN HFA) 90 mcg/actuation inhaler Inhale 2 Puffs as instructed every 4 hours as needed. albuterol (PROVENTIL) 2.5 mg /3 mL (0.083 %) nebulizer solution Inhale 2.5 mg as instructed every 4 hours as needed. budesonide-formoterol (SYMBICORT) 80-4.5 mcg/actuation inhaler Inhale as instructed every 24 hours. buPROPion XL (WELLBUTRIN XL) 300 mg 24 hr tablet Take by mouth every 24 hours. montelukast (SINGULAIR) 10 mg tablet Take 1 tablet by mouth every afternoon. pregabalin (LYRICA) 150 mg capsule Take 150 mg by mouth two times a day. levothyroxine (SYNTHROID) 75 mcg tablet Take 1 tablet by mouth every afternoon. cephALEXin (KEFLEX) 500 mg capsule TAKE 1 CAPSULE (500 MG) BY MOUTH IN THE MORNING AND 1 CAPSULE (500 MG) BEFORE BEDTIME. oxyCODONE-acetaminophen (PERCOCET) 7.5-325 mg tablet Take 1 tablet by mouth every 12 hours. VITAMIN PLUS LOW IRON 27 mg iron- 1 mg Take 1 tablet by mouth every morning. predniSONE (DELTASONE) 20 mg tablet TAKE 3 TABLETS BY MOUTH DAILY FOR 3 DAYS, then TAKE 2 TABLETS DAILY FOR 3 DAYS, then TAKE 1 TABLET DAILY FOR 3 DAYS No current facility-administered medications for this visit. ALLERGIES Allergen Reactions Butalbital-Acetamin* Unknown Cyclobenzaprine Unknown Diphenhydramine Other: See Comments irritable irritable Fibrinolysin Unknown Iodinated Contrast * Unknown Progesterone Swelling Sertraline Unknown Topiramate Unknown Tramadol Unknown Varenicline Unknown HPI: 44 yo female patient presenting for eval and management of hypothyroidism. Diagnosed with hypothyroidism 1 year after 3 yo son was born. Has been on Levothyroxine 75 mcg one tab daily since. Takes appropriately in am. TSH normal a year ago. Not on Biotin/hair nail skin supplement. Has not been feeling right. Exhausted all the time. Had hysterectomy Apr 2024 for menorrhagia, ovaries left in. Unintentional 14 pds weight loss since hysterectomy. Previously lost intentionally 84 pds after starting Levothyroxine and was happy with it. Periods heavy and irregular before surgery. Working with Radiation Control Specialist, considering low dose E, but she is reluctant. Lots of migraine, anxiety, some CP on and off. Has had some night sweats, but better on a new BP med started by PCP. Gets steroids for Fibromyalgia flare/asthma every 1-3 months. This can be Medrol pack or short course of Prednisone( for a week) for few years. Just started Medrol pack yesterday for asthma/bronchitis. Niece and great niece who is 16 yo, have zane's disease and on thyroid hormone REVIEW OF SYSTEMS: Answers submitted by the patient for this visit: Endocrine Review of Systems (Submitted on 08/18/2024) Fatigue: Yes Night sweats: Yes Skin Color Changes: Yes Post-Nasal Drip: Yes Trouble Swallowing: Yes Vision Disturbance: Yes Chest pain: Yes Leg Swelling: Yes Blood Clots?: No Leg Pain while walking?: Yes Difficulty Breathing?: Yes Heartburn: No Nausea: Yes Vomiting: No Diarrhea: Yes Constipation: No Abdominal pain: Yes Bone Pain?: Yes Muscle aches: Yes Muscle weakness: Yes Joint pain or stiffness: Yes Headaches: Yes Dizziness: Yes Numbness?: Yes Urgency to Urinate?: No Increased Urination: Yes Slow or Small Urine Stream?: No Flushing: Yes Hot Flashes?: No Change in Body Hair?: Yes Cold Intolerance: Yes Heat Intolerance: No PHYSICAL EXAMINATION: VIDEO EXAM: (if completed, performed via video enabled technology) GENERAL: alert and appropriate, in no distress, well-hydrated, well nourished, and happy, smiling, interactive NECK: full ROM, no cervical LNs noted Per recent box maker paperboard note care everywhere: LABS: ASSESSMENT/PLAN: 44 yo female patient presenting for eval and management of hypothyroidism. Patient is currently on Levothyroxine 75 mcg daily. Normal TSH a year ago. s/p Hysterectomy Apr 2024 and lots of sx since. Hard to assess thyroid status clinically and not sure sx are thyroid related but would get TFTs (more content not included)...[facility] 07-25-2024 History of Present illness Narrative* Zoya Rothman, FARRUKH - 07/25/2024 8:10 AM EST Reason for Appointment: Patient ID: Ana Moore is a 43 y.o. female who presents for No chief complaint on file. Patient presents today via telephone call for a telehealth appointment. Patients Phone #: [phone] (mobile) Current Medications: has a current medication list which includes the following prescription(s): albuterol, bupropion xl, cephalexin, cholecalciferol, ferrous sulfate, fluticasone, ibuprofen, levothyroxine, magnesium, montelukast, mucus relief, oxycodone-acetaminophen, pregabalin, and vitamins. Medical History: Active Ambulatory Problems Diagnosis Date Noted Opioid dependence in remission ([facility]) 01/10/2023 Abnormal quad screen 10/13/2020 Abnormal uterine bleeding 02/02/2023 Dysmenorrhea 02/02/2023 Abnormal weight gain 02/02/2023 Acne 02/02/2023 Agoraphobia ([facility]) 02/02/2023 Allergic rhinitis 09/30/2016 Asthma during ([facility]) 10/29/2020 Asthma, moderate persistent ([facility]) 09/30/2016 Breast lump 05/31/2020 Chronic back pain 08/01/2020 Chronic cough 09/30/2016 Compulsive tobacco user syndrome 09/30/2016 Cystic acne 02/02/2023 History of migraine during 10/29/2020 History of tobacco use 02/02/2023 Hypothyroidism ([facility]) 02/02/2023 Internal derangement of shoulder, right 02/02/2023 Irregular menstrual cycle 12/02/2015 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 02/02/2023 Low lying placenta, antepartum 10/29/2020 Menorrhagia 02/02/2023 Migraine ([facility]) 02/02/2023 Mild persistent asthma with (acute) exacerbation ([facility]) 02/02/2023 Mild persistent asthma without complication ([facility]) 02/02/2023 Depressive disorder in mother affecting ([facility]) 02/02/2023 Mixed anxiety and depressive disorder 02/02/2023 Posttraumatic stress disorder ([facility]) 02/02/2023 Obesity affecting 10/29/2020 Obesity 02/02/2023 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 Opioid abuse ([facility]) 02/02/2023 Other specified abnormal findings of blood chemistry 02/02/2023 Headache 08/30/2012 Pain in limb 08/30/2012 Pain in thoracic spine 02/02/2023 Tobacco smoking affecting 09/30/2016 Umbilical hernia 02/02/2023 Resolved Ambulatory Problems Diagnosis Date Noted No Resolved Ambulatory Problems Past Medical History: Diagnosis Date Abnormal TSH Abnormal uterine bleeding (AUB) Anxiety Asthma ([facility]) Chronic bilateral thoracic back pain Current tobacco use Depression ([facility]) Fibromyalgia GERD (gastroesophageal reflux disease) IBS (irritable bowel syndrome) Migraines ([facility]) Nicotine dependence, cigarettes, in remission Obesity (BMI 30-39.9) Pre-op exam PTSD (post-traumatic stress disorder) ([facility]) Smell disorder Well woman exam Family History Problem Relation Name Age of Onset Cancer Father Cancer Paternal Grandfather Social History Tobacco Use Smoking status: Former Types: Cigarettes Smokeless tobacco: Not on file Substance Use Topics Alcohol use: Yes Drug use: Not on file Past Surgical History: Procedure Laterality Date CHOLECYSTECTOMY CYST REMOVAL Right RT leg DILATION AND CURETTAGE OF UTERUS 11/12/2023 ENDOMETRIAL ABLATION EYE MUSCLE SURGERY HYSTEROSCOPY 11/12/2023 ROTATOR CUFF REPAIR Right 12/02/2016 Dr Mattson ROTATOR CUFF REPAIR Right 04/13/2018 Dr Mattson SKIN GRAFT RT ankle/foot TUBAL LIGATION 2020 TUBAL LIGATION 2020 WRIST SURGERY Left 2013 w/pinning Allergies Allergen Reactions Acetaminophen Other Reaction(s): Hives Butalbital Other Reaction(s): Hives Pemskduuju-Jodr-Wqjc-Cod Other Reaction(s): Hives Caffeine Other Reaction(s): Hives Cyclobenzaprine Other Reaction(s): Hives, Unknown Other Reaction(s): Hives Diphenhydramine Other Reaction(s): Other: See Comments irritable irritable irritable Fibrinolysin Other Reaction(s): Unknown Fioricet [[id number]-Hvltzdyb] Iodinated Contrast Media Other Reaction(s): Hives, Unknown Other Reaction(s): Hives Iodine I 131 Tositumomab Prednisone & Diphenhydramine Other Reaction(s): Comment:MRI DYE Progesterone Swelling Sertraline Other Reaction(s): Hives, Unknown Other Reaction(s): Hives Sumatriptan Itching Other Reaction(s): Hives burning Topiramate Other Reaction(s): Hives, Unknown Other Reaction(s): Hives Tramadol Other Reaction(s): Unknown Varenicline Other Reaction(s): Hives, Unknown Other Reaction(s): Hives Vitals: Estimated body mass index is 22.3 kg/m as calculated from the following: Height as of 01/12/24: 5' 9 . Weight as of 07/06/24: 151 lb. BP: No LMP recorded (lmp unknown). Patient has had a hysterectomy. Assessment/Plan Encounter Diagnosis Name Primary? Hot flashes Pt read on black cohosh and soy and is scared to take it. Pt saw PCP and started her on a blood pressure med last week. Pt desires to see how it works out for pt. Discussed adding low dose hormone infuture. Pt voiced estrogen gives her migraines will discuss further at annual appt. Today's telehealth visit consisted of spending 8 minutes talking to patient on the phone. Documented by Zoya Rothman LPN on behalf of: Yoandy Valadez DO documented in this encounterBates [facility] [id number] History of Present illness Narrative* MATT Gardiner - 07/06/2024 9:00 AM EST Reason for Appointment: Patient ID: Ana Moore is a 43 y.o. female who presents for Post-op Visit (Pt present today for a 6 week post operative visit. Pt had a robotic hysterectomy on 05/16/2024.) Patient presents today for 6 week Hyst Post Op Follow Up appointment. MEDICATIONS Current Outpatient Medications Medication Instructions albuterol 2.5 mg, Nebulization, Every 4 hours PRN buPROPion XL (WELLBUTRIN XL) 300 mg, Oral, Daily, Do not crush, chew, or split. cephalexin (Keflex) 500 MG capsule TAKE 1 CAPSULE BY MOUTH TWICE DAILY (IN THE MORNING and BEFORE bedtime) cholecalciferol (VITAMIN D-3) 2,000 Units, Oral, Daily Ferrous Sulfate (IRON PO) 1 tablet, Oral, Every morning fluticasone (Flonase) 50 MCG/ACT nasal spray 1 spray, Each Nostril, Daily ibuprofen 800 mg, Oral, Every 8 hours PRN levothyroxine (Synthroid, Levoxyl) 75 MCG tablet Oral, Daily before breakfast Magnesium 400 mg, Oral, Daily montelukast (SINGULAIR) 10 mg, Oral, Nightly Mucus Relief 600 mg, Oral, 2 times daily oxyCODONE-acetaminophen (Percocet) 10-325 MG tablet Every 6 hours pregabalin (LYRICA) 150 mg, Oral, 2 times daily Vit-Fe Fumarate-FA ( Vitamins) 28-0.8 MG tablet 1 tablet, Oral, Daily ALLERGIES Allergies Allergen Reactions Acetaminophen Other Reaction(s): Hives Butalbital Other Reaction(s): Hives Aitpxloiee-Ookv-Bsya-Cod Other Reaction(s): Hives Caffeine Other Reaction(s): Hives Cyclobenzaprine Other Reaction(s): Hives, Unknown Other Reaction(s): Hives Diphenhydramine Other Reaction(s): Other: See Comments irritable irritable irritable Fibrinolysin Other Reaction(s): Unknown Fioricet [Htsqifdjfx-Emge-Mqrmakfc] Iodinated Contrast Media Other Reaction(s): Hives, Unknown Other Reaction(s): Hives Iodine I 131 Tositumomab Prednisone & Diphenhydramine Other Reaction(s): Comment:MRI DYE Progesterone Swelling Sertraline Other Reaction(s): Hives, Unknown Other Reaction(s): Hives Sumatriptan Itching Other Reaction(s): Hives burning Topiramate Other Reaction(s): Hives, Unknown Other Reaction(s): Hives Tramadol Other Reaction(s): Unknown Varenicline Other Reaction(s): Hives, Unknown Other Reaction(s): Hives PROBLEMS Active Ambulatory Problems Diagnosis Date Noted Opioid dependence in remission ([facility]) 01/10/2023 Abnormal quad screen 10/13/2020 Abnormal uterine bleeding 02/02/2023 Dysmenorrhea 02/02/2023 Abnormal weight gain 02/02/2023 Acne 02/02/2023 Agoraphobia ([facility]) 02/02/2023 Allergic rhinitis 09/30/2016 Asthma during ([facility]) 10/29/2020 Asthma, moderate persistent ([facility]) 09/30/2016 Breast lump 05/31/2020 Chronic back pain 08/01/2020 Chronic cough 09/30/2016 Compulsive tobacco user syndrome 09/30/2016 Cystic acne 02/02/2023 History of migraine during 10/29/2020 History of tobacco use 02/02/2023 Hypothyroidism ([facility]) 02/02/2023 Internal derangement of shoulder, right 02/02/2023 Irregular menstrual cycle 12/02/2015 intermediate current use of inhaled steroid 02/02/2023 Low lying placenta, antepartum 10/29/2020 Menorrhagia 02/02/2023 Migraine ([facility]) 02/02/2023 Mild persistent asthma with (acute) exacerbation ([facility]) 02/02/2023 Mild persistent asthma without complication ([facility]) 02/02/2023 Depressive disorder in mother affecting ([facility]) 02/02/2023 Mixed anxiety and depressive disorder 02/02/2023 Posttraumatic stress disorder ([facility]) 02/02/2023 Obesity affecting 10/29/2020 Obesity 02/02/2023 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 Opioid abuse ([facility]) 02/02/2023 Other specified abnormal findings of blood chemistry 02/02/2023 Headache 08/30/2012 Pain in limb 08/30/2012 Pain in thoracic spine 02/02/2023 Tobacco smoking affecting 09/30/2016 Umbilical hernia 02/02/2023 Resolved Ambulatory Problems Diagnosis Date Noted No Resolved Ambulatory Problems Past Medical History: Diagnosis Date Abnormal TSH Abnormal uterine bleeding (AUB) Anxiety Asthma ([facility]) Chronic bilateral thoracic back pain Current tobacco use Depression ([facility]) Fibromyalgia GERD (gastroesophageal reflux disease) IBS (irritable bowel syndrome) Migraines ([facility]) Nicotine dependence, cigarettes, in remission Obesity (BMI 30-39.9) Pre-op exam PTSD (post-traumatic stress disorder) ([facility]) Smell disorder Well woman exam HISTORY PAST MEDICAL HISTORY SOCIAL HISTORY Past Medical History: Diagnosis Date Abnormal TSH Abnormal uterine bleeding (AUB) Abnormal weight gain Acne Agoraphobia ([facility]) Anxiety Asthma ([facility]/H[facility]) Chronic bilateral thoracic back pain Current tobacco use Cystic acne Depression ([facility]) Dysmenorrhea Fibromyalgia GERD (gastroesophageal reflux disease) Hypothyroidism ([facility]) IBS (irritable bowel syndrome) intermediate current use of inhaled steroid Menorrhagia Migraines ([facility]/H[facility]) Nicotine dependence, cigarettes, in remission Obesity (BMI 30-39.9) Opioid abuse (CMS/HCC) Pre-op exam PTSD (post-traumatic stress disorder) (CMS/HCC) Smell disorder Umbilical hernia Well woman exam Social History Tobacco Use Smoking status: Former Types: Cigarettes Smokeless tobacco: Not on file Substance Use Topics Alcohol use: Yes Drug use: Not on file FAMILY HISTORY Family History Problem Relation Name Age of Onset Cancer Father Cancer Paternal Grandfather SURGICAL HISTORY Past Surgical History: Procedure Laterality Date CHOLECYSTECTOMY CYST REMOVAL Right RT leg DILATION AND CURETTAGE OF UTERUS 11/12/2023 ENDOMETRIAL ABLATION EYE MUSCLE SURGERY HYSTEROSCOPY 11/12/2023 ROTATOR CUFF REPAIR Right 12/02/2016 Dr Mattson ROTATOR CUFF REPAIR Right 04/13/2018 Dr Mattson SKIN GRAFT RT ankle/foot TUBAL LIGATION 2020 TUBAL LIGATION 2020 WRIST SURGERY Left 2013 w/pinning REVIEW OF SYSTEMS Review of Systems: Review of Systems Constitutional: Negative. HENT: Negative. Eyes: Negative. Respiratory: Negative. Cardiovascular: Negative. Gastrointestinal: Negative. Genitourinary: Negative. Musculoskeletal: Negative. Skin: Negative. Neurological: Negative. All other systems reviewed and are negative. Hematological: Negative. Endocrine: Negative. Allergic/Immunologic: Negative. OBJECTIVE Objective: Physical Exam Constitutional: Appearance: Normal appearance. Genitourinary: Perineal sutures intact. Right Adnexa: not tender and no mass present. Left Adnexa: not tender and no mass present. Cervix is absent. No cervical discharge. Uterus is absent. Breasts: Breasts are soft. Right: Normal. Left: Normal. HENT: Head: Normocephalic. Nose: Nose normal. Mouth/Throat: Mouth: Mucous membranes are moist. Cardiovascular: Rate and Rhythm: Normal rate. Pulmonary: Effort: Pulmonary effort is normal. Abdominal: General: Bowel sounds are normal. Palpations: Abdomen is soft. Musculoskeletal: General: Normal range of motion. Cervical back: Normal range of motion. Neurological: General: No focal deficit present. Mental Status: She is alert. Skin: General: Skin is warm and dry. Psychiatric: Mood and Affect: Mood normal. Vitals and nursing note reviewed. Exam conducted with a machine heel seat fitter present. Vitals: Estimated body mass index is 22.3 kg/m as calculated from the following: Height as of 01/12/24: 5' 9 . Weight as of this encounter: 151 lb. BP: 118/72 No LMP recorded (lmp unknown). Patient has had a hysterectomy. ASSESSMENT & PLAN ICD-10-CM 1. Postoperative visit Z48.89 2. S/P hysterectomy Z90.710 Post Op Follow Up: Patient presents today for a 6 week postop check following a Da Celena assisted Laparoscopic Hysterectomy. Surgery execution and pathology results were discussed in great detail with the patient. Pelvic exam was performed and vaginal cuff was noted as healing well. Sutures were present and removed with ring forceps. Patient has been instructed to sustain from sexual intercourse for one more week. All other restrictions have otherwise been lifted. Follow Up: Patient is to return in 1 year for annual exam unless needed otherwise. Documented by Mildred Mcelroy MA on behalf of: MATT Gardiner documented in this [facility]12-23-2024 Telephone encounter Note* Telephone Encounter - Gisel Sethi - 06/19/2024 10:14 AM EST Patient called and stated that she is having some cramping with spotting since she had hysterectomy. She stated she has over done things with lifting her child etc, Per nurse she wanted her to lay low and not lift and over do herself as she needs to heal. She is to call us if she gets worse or paingets any worse or bleeding. [facility] [id number] Miscellaneous Notes* Telephone Encounter - Gisel Sethi - 06/19/2024 10:14 AM EST Patient called and stated that she is having some cramping with spotting since she had hysterectomy. She stated she has over done things with lifting her child etc, Per nurse she wanted her to lay low and not lift and over do herself as she needs to heal. She is to call us if she gets worse or paingets any worse or bleeding. documented in this [facility]12-18-2024 Evaluation note* Diagnosis Onset Date Resolution Status Admit Date Fibromyalgia acute May 9:13am Migraine headache acute Decembe r 2023 9:13am Sinusitis, acute maxillary acute June 14, 2024 9:13am Thoracic back pain acute Decemb er 2023 9:13am Fibromyalgia acute June 10:25am Hot flashes due to menopause acute July 13, 2024 10:25am Migraine headache acute July 13, 2024 10:25am Right otitis media acute Junuar y 2024 10:25am Thoracic back pain acute Junuar y 2024 10:25am [facility] Work Phone: [phone] 460-181011-26-2024 History of Present illness Narrative* MATT Gardiner - 05/23/2024 2:10 PM EST Reason for Appointment: Patient ID: Ana Moore is a 43 y.o. female who presents for Post-op Visit Patient presents today for 1 week Da Celena assisted Laparoscopic Hysterectomy Post Op Follow Up appointment. MEDICATIONS Current Outpatient Medications Medication Instructions albuterol 2.5 mg, Nebulization, Every 4 hours PRN buPROPion XL (WELLBUTRIN XL) 300 mg, Oral, Daily, Do not crush, chew, or split. cephalexin (Keflex) 500 MG capsule TAKE 1 CAPSULE BY MOUTH TWICE DAILY (IN THE MORNING and BEFORE bedtime) cholecalciferol (VITAMIN D-3) 2,000 Units, Oral, Daily Ferrous Sulfate (IRON PO) 1 tablet, Oral, Every morning fluticasone (Flonase) 50 MCG/ACT nasal spray 1 spray, Each Nostril, Daily levothyroxine (Synthroid, Levoxyl) 75 MCG tablet Oral, Daily before breakfast Magnesium 400 mg, Oral, Daily montelukast (SINGULAIR) 10 mg, Oral, Nightly Mucus Relief 600 mg, Oral, 2 times daily oxyCODONE-acetaminophen (Percocet) 10-325 MG tablet Every 6 hours pregabalin (LYRICA) 150 mg, Oral, 2 times daily Vit-Fe Fumarate-FA ( Vitamins) 28-0.8 MG tablet 1 tablet, Oral, Daily ALLERGIES Allergies Allergen Reactions Acetaminophen Other Reaction(s): Hives Butalbital Other Reaction(s): Hives Ylzxmnccki-Bhbw-Vhky-Cod Other Reaction(s): Hives Caffeine Other Reaction(s): Hives Cyclobenzaprine Other Reaction(s): Hives, Unknown Other Reaction(s): Hives Diphenhydramine Other Reaction(s): Other: See Comments irritable irritable irritable Fibrinolysin Other Reaction(s): Unknown Fioricet [Xjzqyxsten-Stux-Eebewazw] Iodinated Contrast Media Other Reaction(s): Hives, Unknown Other Reaction(s): Hives Prednisone & Diphenhydramine Other Reaction(s): Comment:MRI DYE Progesterone Swelling Sertraline Other Reaction(s): Hives, Unknown Other Reaction(s): Hives Sumatriptan Itching Other Reaction(s): Hives burning Topiramate Other Reaction(s): Hives, Unknown Other Reaction(s): Hives Tramadol Other Reaction(s): Unknown Varenicline Other Reaction(s): Hives, Unknown Other Reaction(s): Hives PROBLEMS Active Ambulatory Problems Diagnosis Date Noted Opioid dependence in remission ([facility]) 01/10/2023 Abnormal quad screen 10/13/2020 Abnormal uterine bleeding 02/02/2023 Dysmenorrhea 02/02/2023 Abnormal weight gain 02/02/2023 Acne 02/02/2023 Agoraphobia ([facility]) 02/02/2023 Allergic rhinitis 09/30/2016 Asthma during ([facility]) 10/29/2020 Asthma, moderate persistent ([facility]) 09/30/2016 Breast lump 05/31/2020 Chronic back pain 08/01/2020 Chronic cough 09/30/2016 Compulsive tobacco user syndrome 09/30/2016 Cystic acne 02/02/2023 History of migraine during 10/29/2020 History of tobacco use 02/02/2023 Hypothyroidism ([facility]) 02/02/2023 Internal derangement of shoulder, right 02/02/2023 Irregular menstrual cycle 12/02/2015 intermediate current use of inhaled steroid 02/02/2023 Low lying placenta, antepartum 10/29/2020 Menorrhagia 02/02/2023 Migraine ([facility]) 02/02/2023 Mild persistent asthma with (acute) exacerbation ([facility]) 02/02/2023 Mild persistent asthma without complication ([facility]) 02/02/2023 Depressive disorder in mother affecting ([facility]) 02/02/2023 Mixed anxiety and depressive disorder 02/02/2023 Posttraumatic stress disorder ([facility]) 02/02/2023 Obesity affecting 10/29/2020 Obesity 02/02/2023 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 Opioid abuse ([facility]) 02/02/2023 Other specified abnormal findings of blood chemistry 02/02/2023 Headache 08/30/2012 Pain in limb 08/30/2012 Pain in thoracic spine 02/02/2023 Tobacco smoking affecting 09/30/2016 Umbilical hernia 02/02/2023 Resolved Ambulatory Problems Diagnosis Date Noted No Resolved Ambulatory Problems Past Medical History: Diagnosis Date Abnormal TSH Abnormal uterine bleeding (AUB) Anxiety Asthma (CMS/HCC) Chronic bilateral thoracic back pain Current tobacco use Depression (CMS/HCC) Fibromyalgia GERD (gastroesophageal reflux disease) IBS (irritable bowel syndrome) Migraines (CMS/HCC) Nicotine dependence, cigarettes, in remission Obesity (BMI 30-39.9) Pre-op exam PTSD (post-traumatic stress disorder) (CMS/HCC) Smell disorder Well woman exam HISTORY PAST MEDICAL HISTORY SOCIAL HISTORY Past Medical History: Diagnosis Date Abnormal TSH Abnormal uterine bleeding (AUB) Abnormal weight gain Acne Agoraphobia (CMS/HCC) Anxiety Asthma (CMS/HCC) Chronic bilateral thoracic back pain Current tobacco use Cystic acne Depression (CMS/HCC) Dysmenorrhea Fibromyalgia GERD (gastroesophageal reflux disease) Hypothyroidism (CMS/HCC) IBS (irritable bowel syndrome) intermediate current use of inhaled steroid Menorrhagia Migraines (CMS/HCC) Nicotine dependence, cigarettes, in remission Obesity (BMI 30-39.9) Opioid abuse (CMS/HCC) Pre-op exam PTSD (post-traumatic stress disorder) (CMS/HCC) Smell disorder Umbilical hernia Well woman exam Social History Tobacco Use Smoking status: Former Types: Cigarettes Smokeless tobacco: Not on file Substance Use Topics Alcohol use: Yes Drug use: Not on file FAMILY HISTORY Family History Problem Relation Name Age of Onset Cancer Father Cancer Paternal Grandfather SURGICAL HISTORY Past Surgical History: Procedure Laterality Date CHOLECYSTECTOMY CYST REMOVAL Right RT leg DILATION AND CURETTAGE OF UTERUS 11/12/2023 ENDOMETRIAL ABLATION EYE MUSCLE SURGERY HYSTEROSCOPY 11/12/2023 ROTATOR CUFF REPAIR Right 12/02/2016 Dr Mattson ROTATOR CUFF REPAIR Right 04/13/2018 Dr Mattson SKIN GRAFT RT ankle/foot TUBAL LIGATION 2020 TUBAL LIGATION 2020 WRIST SURGERY Left 2013 w/pinning REVIEW OF SYSTEMS Review of Systems: Review of Systems Constitutional: Negative. HENT: Negative. Eyes: Negative. Respiratory: Negative. Cardiovascular: Negative. Gastrointestinal: Negative. Genitourinary: Negative. Musculoskeletal: Negative. Skin: Negative. Neurological: Negative. All other systems reviewed and are negative. Hematological: Negative. Endocrine: Negative. Allergic/Immunologic: Negative. OBJECTIVE Objective: Physical Exam Constitutional: Appearance: Normal appearance. She is normal weight. HENT: Head: Normocephalic. Cardiovascular: Rate and Rhythm: Normal rate. Pulses: Normal pulses. Pulmonary: Effort: Pulmonary effort is normal. Breath sounds: Normal breath sounds. Abdominal: Palpations: Abdomen is soft. Comments: Small hematoma palpated at the ventral incision site, ecchymosis noted, no active or pulsatile bleeding Musculoskeletal: General: Normal range of motion. Neurological: General: No focal deficit present. Mental Status: She is alert and oriented to person, place, and time. Psychiatric: Mood and Affect: Mood normal. Behavior: Behavior normal. Thought Content: Thought content normal. Judgment: Judgment normal. Vitals and nursing note reviewed. Vitals: Estimated body mass index is 24.48 kg/m as calculated from the following: Height as of 01/12/24: 5' 9 . Weight as of this encounter: 165 lb 12 oz. BP: No LMP recorded. Patient has had an ablation. ASSESSMENT & PLAN ICD-10-CM 1. S/P hysterectomy Z90.710 Post Op Follow Up: Patient presents today for a one week postop check after having a Da Celena assisted Laparoscopic Hysterectomy. Patient is doing well but has minor complaints of pain. Incisions has been noted as healing well with no signs and symptoms of infection. Follow Up: Patient is to return in 5 weeks for 6 week post operative evaluation Documented by: MATT Gardiner documented in this encounterBates County Memorial [id number] Evaluation note* Diagnosis Onset Date Resolution Status Admit Date Fibromyalgia acute March 1:02pm Migraine headache acute April 14, 2024 1:02pm [facility] Work Phone: 1(576) 208-492810-18-2024 Evaluation note* Diagnosis Onset Date Resolution Status Admit Date Fibromyalgia acute March 1:02pm Migraine headache acute April 14, 2024 1:02pm Depression acute May 18, 2024 11:10am Fibromyalgia acute April 11:10am Migraine headache acute Novembe r 2023 11:10am Thoracic back pain acute Novemb er 2023 11:10am Fibromyalgia acute May 9:13am Migraine headache acute Decembe r 2023 9:13am Sinusitis, acute maxillary acute June 14, 2024 9:13am Thoracic back pain acute Decemb er 2023 9:13am Fibromyalgia acute June 10:25am Thoracic back pain acute Junuar 2024 10:25am [facility] Work Phone: [phone]) 318-849209-25-2024 History of Present illness Narrative* Kimberley Treviño - 03/22/2024 1:10 PM EDT Reason for Appointment: Patient ID: Ana Moore is a 43 y.o. female who presents for Pre-op Visit Patient presents today for Pre Op appointment. Patient is scheduled to undergo Da Celena assisted Laparoscopic Hysterectomy, possible exploratory laparotomy, possible BSO, possible cystoscopy on 04/20/[address] Valadez at [facility]. MEDICATIONS Current Outpatient Medications Medication Instructions albuterol 2.5 mg, Nebulization, Every 4 hours PRN buPROPion XL (WELLBUTRIN XL) 300 mg, Oral, Daily, Do not crush, chew, or split. cephalexin (Keflex) 500 MG capsule TAKE 1 CAPSULE BY MOUTH TWICE DAILY (IN THE MORNING and BEFORE bedtime) cholecalciferol (VITAMIN D-3) 2,000 Units, Oral, Daily Ferrous Sulfate (IRON PO) 1 tablet, Oral, Every morning fluticasone (Flonase) 50 MCG/ACT nasal spray 1 spray, Each Nostril, Daily levothyroxine (Synthroid, Levoxyl) 75 MCG tablet Oral, Daily before breakfast Magnesium 400 mg, Oral, Daily montelukast (SINGULAIR) 10 mg, Oral, Nightly Mucus Relief 600 mg, Oral, 2 times daily oxyCODONE-acetaminophen (Percocet) 10-325 MG tablet Every 6 hours pregabalin (LYRICA) 150 mg, Oral, 2 times daily Vit-Fe Fumarate-FA ( Vitamins) 28-0.8 MG tablet 1 tablet, Oral, Daily ALLERGIES Allergies Allergen Reactions Acetaminophen Other Reaction(s): Hives Butalbital Other Reaction(s): Hives Tiihfmdbfa-Iuij-Cubr-Cod Other Reaction(s): Hives Caffeine Other Reaction(s): Hives Cyclobenzaprine Other Reaction(s): Hives, Unknown Other Reaction(s): Hives Diphenhydramine Other Reaction(s): Other: See Comments irritable irritable irritable Fibrinolysin Other Reaction(s): Unknown Fioricet [Eqhenxwnrv-Blrq-Ikxrlshy] Iodinated Contrast Media Other Reaction(s): Hives, Unknown Other Reaction(s): Hives Prednisone & Diphenhydramine Other Reaction(s): Comment:MRI DYE Progesterone Swelling Sertraline Other Reaction(s): Hives, Unknown Other Reaction(s): Hives Sumatriptan Itching Other Reaction(s): Hives burning Topiramate Other Reaction(s): Hives, Unknown Other Reaction(s): Hives Tramadol Other Reaction(s): Unknown Varenicline Other Reaction(s): Hives, Unknown Other Reaction(s): Hives PROBLEMS Active Ambulatory Problems Diagnosis Date Noted Opioid dependence in remission ([facility]) 01/10/2023 Abnormal quad screen 10/13/2020 Abnormal uterine bleeding 02/02/2023 Dysmenorrhea 02/02/2023 Abnormal weight gain 02/02/2023 Acne 02/02/2023 Agoraphobia ([facility]) 02/02/2023 Allergic rhinitis 09/30/2016 Asthma during ([facility]) 10/29/2020 Asthma, moderate persistent ([facility]) 09/30/2016 Breast lump 05/31/2020 Chronic back pain 08/01/2020 Chronic cough 09/30/2016 Compulsive tobacco user syndrome 09/30/2016 Cystic acne 02/02/2023 History of migraine during 10/29/2020 History of tobacco use 02/02/2023 Hypothyroidism ([facility]) 02/02/2023 Internal derangement of shoulder, right 02/02/2023 Irregular menstrual cycle 12/02/2015 intermediate current use of inhaled steroid 02/02/2023 Low lying placenta, antepartum 10/29/2020 Menorrhagia 02/02/2023 Migraine ([facility]) 02/02/2023 Mild persistent asthma with (acute) exacerbation ([facility]) 02/02/2023 Mild persistent asthma without complication ([facility]) 02/02/2023 Depressive disorder in mother affecting ([facility]) 02/02/2023 Mixed anxiety and depressive disorder 02/02/2023 Posttraumatic stress disorder ([facility]) 02/02/2023 Obesity affecting 10/29/2020 Obesity 02/02/2023 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 Opioid abuse (CMS/HCC) 02/02/2023 Other specified abnormal findings of blood chemistry 02/02/2023 Headache 08/30/2012 Pain in limb 08/30/2012 Pain in thoracic spine 02/02/2023 Tobacco smoking affecting 09/30/2016 Umbilical hernia 02/02/2023 Resolved Ambulatory Problems Diagnosis Date Noted No Resolved Ambulatory Problems Past Medical History: Diagnosis Date Abnormal TSH Abnormal uterine bleeding (AUB) Anxiety Asthma (CMS/HCC) Chronic bilateral thoracic back pain Current tobacco use Depression (CMS/HCC) Fibromyalgia GERD (gastroesophageal reflux disease) IBS (irritable bowel syndrome) Migraines (CMS/HCC) Nicotine dependence, cigarettes, in remission Obesity (BMI 30-39.9) Pre-op exam PTSD (post-traumatic stress disorder) (CMS/HCC) Smell disorder Well woman exam HISTORY PAST MEDICAL HISTORY SOCIAL HISTORY Past Medical History: Diagnosis Date Abnormal TSH Abnormal uterine bleeding (AUB) Abnormal weight gain Acne Agoraphobia (CMS/HCC) Anxiety Asthma (CMS/HCC) Chronic bilateral thoracic back pain Current tobacco use Cystic acne Depression (CMS/HCC) Dysmenorrhea Fibromyalgia GERD (gastroesophageal reflux disease) Hypothyroidism (CMS/HCC) 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 Menorrhagia Migraines (CMS/HCC) Nicotine dependence, cigarettes, in remission Obesity (BMI 30-39.9) Opioid abuse (CMS/HCC) Pre-op exam PTSD (post-traumatic stress disorder) (CMS/HCC) Smell disorder Umbilical hernia Well woman exam Social History Tobacco Use Smoking status: Former Types: Cigarettes Smokeless tobacco: Not on file Substance Use Topics Alcohol use: Yes Drug use: Not on file FAMILY HISTORY Family History Problem Relation Name Age of Onset Cancer Father Cancer Paternal Grandfather SURGICAL HISTORY Past Surgical History: Procedure Laterality Date CHOLECYSTECTOMY CYST REMOVAL Right RT leg DILATION AND CURETTAGE OF UTERUS 11/12/2023 ENDOMETRIAL ABLATION EYE MUSCLE SURGERY HYSTEROSCOPY 11/12/2023 ROTATOR CUFF REPAIR Right 12/02/2016 Dr Mattson ROTATOR CUFF REPAIR Right 04/13/2018 Dr Mattson SKIN GRAFT RT ankle/foot TUBAL LIGATION 2020 TUBAL LIGATION 2020 WRIST SURGERY Left 2013 w/pinning REVIEW OF SYSTEMS Review of Systems: Review of Systems OBJECTIVE Objective: OBGyn Exam Vitals: Estimated body mass index is 24.48 kg/m as calculated from the following: Height as of 01/12/24: 5' 9 . Weight as of this encounter: 165 lb 12.8 oz. BP: 114/70 No LMP recorded. Patient has had an ablation. ASSESSMENT & PLAN ICD-10-CM 1. Preop examination Z01.818 2. Menorrhagia with regular cycle N92.0 3. Pelvic pain in female R10.2 4. Dyspareunia in female N94.10 5. Dysmenorrhea N94.6 Pre Op: Patient is doing well but has complaints of pelvic pain,dyspareunia, dysmenorrhea, and menorrhagia.I have discussed conservative management vs. surgical management with the patient in detail and patient desires surgical management at this time. Patient will undergo Da Celena assisted Laparoscopic Hy sterectomy, possible exploratory laparotomy, possible BSO, possible cystoscopy on 04/20/2024. Surgical consents were signed, mmc was reviewed, and patient is to proceed to [facility] OR. Follow Up: Patient is to follow up at 1 & 6 weeks post operative to assess proper healing and recovery from procedure. Documented by Zoya Rothman LPN on behalf of: Yoandy Valadez DO documented in this encounterBates County Memorial [id number] History of Present illness Narrative* MATT Navarro - 01/05/2024 11:00 AM EDT RE: Ana Moore : 1980 Chief Complaint: Bilateral nipple discharge Left breast mass Left breast pain HPI: I had the pleasure of meeting Ana Moore in the office today. She is a very pleasant 43 y.o. female who presented to the office today for evaluation of nipple discharge, left breast massand left breast pain. She reports a longstanding history of bilateral, milky nipple discharge that has worsened since she had her last child three years ago. The discharge occurs mostly with breast compression/manipulation, but occasionally she will see wetness on her bra. She describes a sensationof fullness and itchiness that is only alleviated with expression of discharge. She has never experienced bloody discharge or clear/sticky discharge. She also reports a cyst in her left breast that has been present for some time. It is painful at times. She believes it may have increased in size since her last . She also describes intermittent, shooting pains in her left breast. She has a longstanding history of a left inverted nipplebut she feels this has worsened since her last as well. She has a history of bilateral nipple piercings that are no longer in place. No history of breast biopsy or breast surgery. Her paternal great grandmother had breast cancer at an unknown age. No family history of ovarian cancer. She underwent bilateral screening mammogram (12/16/2022) which demonstrated a 1.0 x 1.8 cm focal asymmetry upper outer quadrant posterior depth in the left breast - BIRADS 0. Left diagnostic mammogramand left breast ultrasound was performed (12/25/2023) which demonstrated no suspicious findings - BIRADS 3. On (08/02/2023) she underwent left diagnostic mammogram which showed asymmetric density in theupper outer quadrant at posterior depth is similar to prior studies - BIRADS 1. She is taking levothyroxine for hypothyroidism. She states her thyroid panel was last drawn (06/2023). GYNECOLOGIC HISTORY & RISK ASSESSMENT: First day of last menstrual period (if still having periods): 01/04/2024 Age at which you started menses (periods): 7-11 yrs Have you ever used hormonal control (patch, pill, shot, implant, IUD)? Yes What is your current control method, if applicable? N/A Have you ever been and, if so, how many times? 2 How many children do you have? 3 How old were you at your first delivery? <20 yrs Did you breastfeed? Yes Have you had a hysterectomy? No Do you have your ovaries? Yes Age at start of menopause: N/A Have you ever used hormone replacement therapy? No Using currently? No How many breast biopsies have you had, including this one, if applicable? None Have you had breast surgery before? No Date/side/reason: N/A Have you or any family members had genetic testing? No Do you have Ashkenazi Restorationist ancestry? No Today I reviewed notes from [employer] dated (11/02/2023), imaging report including bilateral screening mammogram dated (12/16/2022), left diagnostic mammogram and left breast ultrasound dated (12/24/2022) and her history form dated (01/05/2024). Past Medical History Past Medical History: Diagnosis Date Acne vulgaris AMA (advanced maternal age) multigravida 35+ Ankle edema Anxiety Asthma Back pain Breast lump Cellulitis, perineum Depression Drug use affecting Exotropia Galactorrhea not associated with childbirth GERD (gastroesophageal reflux disease) History of delivery Humerus fracture Irritable bowel syndrome affecting Low-lying placenta Migraine Rubella non-immune status, antepartum Shoulder pain Tobacco use complicating Visual impairment glasses Wrist pain Past Surgical History Past Surgical History: Procedure Laterality Date ARTHROSCOPY REPAIR ROTATOR CUFF SHOULDER Right 04/13/2018 Performed by Seun Mattson DO at [facility] ARTHROSCOPY SHOULDER Right 04/13/2018 Performed by Seun Mattson DO at [facility] ARTHROSCOPY SHOULDER WITH ROTATOR CUFF REPAIR Right 12/02/2016 Performed by Seun Mattson DO at [facility] CHOLECYSTECTOMY CYST REMOVAL EYE SURGERY x2 SKIN GRAFT WRIST FUSION Family History Family History Problem Relation Age of Onset Arthritis Father Cancer Father Cancer Paternal Grandfather Current Medications Current Outpatient Medications: albuterol (PROVENTIL HFA;VENTOLIN HFA) 90 mcg/actuation inhaler, Inhale 2 puffs every 4 (four) hours as needed for wheezing., Disp: , Rfl: albuterol (PROVENTIL,VENTOLIN) 2.5 mg /3 mL (0.083 %) nebulizer solution, Inhale 2.5 mg by nebulization every 4 (four) hours as needed for wheezing., Disp: , Rfl: budesonide-formoteroL (SYMBICORT) 160-4.5 mcg/actuation inhaler, Inhale 2 puffs 2 (two) times a day., Disp: , Rfl: buPROPion XL (WELLBUTRIN XL) 150 mg 24 hr tablet, Take 1 tablet (150 mg total) by mouth daily. (Patient taking differently: Take 300 mg by mouth daily. ), Disp: 30 tablet, Rfl: 6 dicyclomine (BENTYL) 20 mg tablet, Take 20 mg by mouth every 8 (eight) hours as needed. , Disp: , Rfl: fluticasone (FLONASE) 50 mcg/actuation nasal spray, Administer 1 spray into each nostril daily., Disp: , Rfl: montelukast (SINGULAIR) 10 mg tablet, Take 10 mg by mouth nightly., Disp: , Rfl: oxyCODONE-acetaminophen (PERCOCET) 7.5-325 mg per tablet, Take 1 tablet by mouth every 6 (six) hours as needed for pain. 15/325mg , Disp: , Rfl: pregabalin (LYRICA) 100 mg capsule, Take 100 mg by mouth 2 (two) times a day., Disp: , Rfl: VITAMIN PLUS LOW IRON 27 mg iron- 1 mg tablet, Take 1 tablet by mouth daily., Disp: , Rfl: promethazine (PHENERGAN) 25 mg tablet, Take 25 mg by mouth every 8 (eight) hours as needed for nausea or vomiting., Disp: , Rfl: Allergies Allergies Allergen Reactions Zmptsxrtao-Ykuqdeluppblp-Weue Chantix [Varenicline] Corticosteroids (Glucocorticoids) Cyclobenzaprine Depakote [Divalproex] Pt states makes her suicidal Diphenhydramine irritable Dye MRI DYE Imitrex [Sumatriptan Succinate] Itching burning Iodine And Iodide Containing Products Iodinated contrast media Progesterone Swelling Seasonal Allergy [Other] Sumatriptan Topamax [Topiramate] Tramadol Zoloft [Sertraline] Social History Social History Substance and Sexual Activity Alcohol Use Not Currently Alcohol/week: 0.0 standard drinks of alcohol Comment: rarely Social History Tobacco Use Smoking Status Every Day Current packs/day: 0.75 Types: Cigarettes Smokeless Tobacco Never Social History Substance and Sexual Activity Drug Use Yes Frequency: 3.0 times per week Types: Marijuana Comment: percocet Review of Systems Review of Systems Constitutional: Positive for fatigue. Negative for chills, fever and unexpected weight change. HENT: Negative for congestion, hearing loss, postnasal drip, sinus pressure and sore throat. Eyes: Negative for pain and discharge. Respiratory: Negative for cough, shortness of breath and wheezing. Cardiovascular: Negative for chest pain and palpitations. Gastrointestinal: Positive for abdominal distention and abdominal pain. Negative for constipation, diarrhea, nausea and vomiting. Genitourinary: Positive for frequency and pelvic pain. Negative for dysuria, menstrual problem, vaginal discharge and vaginal pain. Musculoskeletal: Positive for back pain and myalgias. Skin: Negative for rash and wound. Neurological: Positive for headaches. Negative for dizziness and weakness. Hematological: Bruises/bleeds easily. Psychiatric/Behavioral: Positive for sleep disturbance. Negative for confusion. The patient is nervous/anxious. Breasts: breast pain, breast lump, and nipple discharge Objective: Her height is 177.8 cm (5' 10 ) and weight is 76.7 kg (169 lb). Her temperature is 36.5 C (97.7 F).Her blood pressure is 122/79 and her pulse is 68. Constitutional: awake, alert, no apparent distress Head: normocephalic, atraumatic. Eyes: conjunctiva normal bilaterally; EOMI Neck: supple; no lymphadenopathy. Cardiovascular: regular rate. Lungs: equal chest rise, normal effort Extremities: good circulation, without deformities. Neurologic: oriented to place, person, and situation. Psychiatric: appropriately interactive with provider; normal mood and affect. Examination of the right breast was normal; no masses, skin lesions, nipple lesions or nipple discharge. Examination of the left breast demonstrates an inverted nipple, a 2 x 3 cm area of prominent dense tissue w tenderness at the site of her palpable mass 1 oclock, outer 1/3; no nipple lesion, skin lesions or nipple discharge. She has no axillary lymphadenopathy. Images: Her images were reviewed. BIRADS 1 - Negative. Follow-up: Routine Screening Mamm. Density: Heterogeneously dense [3]. Board Certified Radiologists. Accredited by the ACR and FDA. MAMMOGRAPHY IS VERY IMPORTANT TO YOUR HEALTH. THE CURRENT [facility] [employer] N[employer] GUID[employer]ES RECOMMENDS ANNUAL MAMMOGRAPHY BEGINNING AT AGE 41. THIS FACILITY UTILIZES A REMINDER SYSTEM TO ENSURE ALL PATIENTS RECEIVE REMINDER NOTIFICATIONS AT THE APPROPRIATE TIME BASED ON THE RECOMMENDATIONS OF THIS EXAM. ELECTRONICALLY SIGNED BY: Vish Walters MD Narrative EXAM: BI MAMMOGRAM DIAGNOSTIC TOMOSYNTHESIS LEFT DATE:08/02/2023 [...] microcalcifications, or areas of architectural distortion identified. Exam End: 02/05/24 09:56 Specimen Collected: 08/02/23 09:57 Last Resulted: 08/02/23 10:15 ASSESSMENT -Bilateral nipple discharge -Left breast mass PLAN: Reviewed history, imaging reports and clinical exam in detail with patient. She has a area of prominent, dense tissue in the UOQ of her left breast which is the site of her palpable mass. She also reports worsening nipple inversion. She will need bilateral diagnostic mammogram and left breast ultrasound to further evaluate these findings. Discussed that pathologic nipple discharge tends to be unilateral, spontaneous and bloody or clear sticky in appearance. Her discharge is bilateral, milky in appearance and only rarely spontaneous. She denies bloody or clear sticky discharge. No discharge elicited on exam. Based on this, her discharge is most likely physiologic. Will order thyroid panel and prolactin to rule out underlying cause for galactorrhea. Instructed her to stop compressing her breasts which often times worsens the discharge. We will see her back after her breast imaging for a repeat exam. Encouraged her to contact us sooner with changes in her exam, questions or concerns. Total time spent was 45 minutes: Preparing to see the patient (e.g., review of tests) Performing a medically appropriate examination and/or evaluation Counseling and educating the patient/family/caregiver Ordering medications, tests, or procedures Referring and communicating with other health rn progressive care unit (not separately reported) Documenting clinical information in the electronic or other health record MATT Navarro 01/05/24 1246 [facility]* Encounter Date Diagnosis Assessment Notes Treatment Notes Treatment Clinical Notes Jul, Left shoulder pain (ICD-10 - M25.512) [employer] Other 01-05-2024 Evaluation note* Encounter Date Diagnosis Assessment Notes [...] than 5 days since start of symptoms [employer] Other 01-04-2024 Evaluation note* Encounter Date Diagnosis Assessment Notes Treatment Notes Treatment Clinical Notes Jun, Left shoulder pain (ICD-10 - M25.512) [employer] Other 12-15-2023 Evaluation note* Encounter Date Diagnosis Assessment Notes Treatment Notes Treatment Clinical Notes May, Acquired hypothyroidism (ICD-10 - E03.9) Pt advised referral was sent on 05/27. She is welcome to make her own appt a [facility] as well. Will check labs in meantime. May, Fatigue, unspecified type (ICD-10 - R53.83) Pt agrees to labs. May, Left shoulder pain (ICD-10 - M25.512) Ana agrees to decrease dose to 5/325 w next fill in June. Reviewed OARRS. [employer] Other 12-07-2023 Evaluation note* Encounter Date Diagnosis Assessment Notes Treatment Notes Treatment Clinical Notes May, Left shoulder pain (ICD-10 - M25.512) [employer] Other 11-30-2023 Evaluation note* Encounter Date Diagnosis Assessment Notes Treatment Notes Treatment Clinical Notes Apr, Acquired hypothyroidism (ICD-10 - E03.9) [employer] Other 11-09-2023 Evaluation note* Encounter Date Diagnosis Assessment Notes Treatment Notes Treatment Clinical Notes Apr, Left shoulder pain (ICD-10 - M25.512) [employer] Other 10-12-2023 Evaluation note* Encounter Date Diagnosis Assessment Notes Treatment Notes Treatment Clinical Notes Mar, Left shoulder pain (ICD-10 - M25.512) Mar, Acquired hypothyroidism (ICD-10 - E03.9) [employer] Other 10-05-2023 Evaluation note* Encounter Date Diagnosis Assessment Notes Treatment Notes Treatment Clinical Notes Mar, Left shoulder pain (ICD-10 - M25.512) [employer] Other 09-14-2023 Evaluation note* Encounter Date [...] of breath. . Increase fluids and rest. [id number]-hew-[id number] antipyretics as needed. Warning signs and symptoms reviewed with patient today. Patient to go immediately to the ER should she experience any of these. Patient to notify office should her symptoms persist and not improve. Patient verbalizes understanding and agrees to treatment plan. Feb, Left shoulder pain (ICD-10 - M25.512) Chronic problem, take med as prescribed. Reviewed OARRS report. Followup in 3 months. [employer] Other 08-17-2023 Evaluation note* Encounter Date Diagnosis Assessment Notes Treatment Notes Treatment Clinical Notes Jan, Acute thoracic back pain, unspecified back pain laterality (ICD-10 - M54.6) [employer] Other 07-20-2023 Evaluation note* Encounter Date Diagnosis Assessment Notes Treatment Notes Treatment Clinical Notes Dec, Acute thoracic back pain, unspecified back pain laterality (ICD-10 - M54.6) [employer] Other 06-22-2023 Evaluation note* Encounter Date Diagnosis Assessment Notes Treatment Notes Treatment Clinical Notes Nov, Acute thoracic back pain, unspecified back pain laterality (ICD-10 - M54.6) [employer] Other 06-07-2023 Evaluation note* Encounter Date Diagnosis Assessment Notes Treatment Notes Treatment Clinical Notes Nov, Moderate persistent asthma without complication (ICD-10 - J45.40) Nov, Vomiting with nausea, not intractable (ICD-10 - R11.2) Nov, Neck pain (ICD-10 - M54.2) OARRS report processed and reviewed and shows no violations. Pt understands to use only as needed and consider dose reduction at next OV. [employer] Other 06-07-2023 Evaluation note* Encounter Date [...] and consider dose reduction at next OV. [employer] Other 04-27-2023 Evaluation note* Encounter Date Diagnosis Assessment Notes Treatment Notes Treatment Clinical Notes Sep, Acute thoracic back pain, unspecified back pain laterality (ICD-10 - M54.6) [employer] Other 03-08-2023 Evaluation note* Encounter Date [...] Will continue to decrease with next rx. [employer] Other 03-08-2023 Evaluation note* Encounter Date [...] as listed above for the breast area. [employer] Other 10-24-2022 NotePROCEDURE: XR FOREARM RT 2V HISTORY: Falls ; fell down stairs, right forearm pain COMPARISON: None. FINDINGS: BONES:Transverse fracture through mid ulnar diaphysis without displacement. Unremarkable radius. SOFT TISSUES:No visible soft tissue swelling. EFFUSION:None visible. OTHER: Negative. IMPRESSION: 1. Acute, nondisplaced mid ulnar diaphyseal fracture. Electronically authenticated by: VISH PORTER Date: 2022-04-20 07:54[facility] [employer] Other Evaluation note* Diagnosis Onset Date Resolution Status Thoracic back pain acute [facility] Work Phone: Evaluation note* Diagnosis Onset Date Resolution Status Thoracic back pain acute Acute lumbar back pain acute Thoracic back pain acute [facility] Work Phone: Evaluation note* Diagnosis Onset Date Resolution Status Acute lumbar back pain acute Thoracic back pain [facility] Work Phone: Evaluation note* Diagnosis Onset Date Resolution Status Fibromyalgia acute Thoracic back pain acute [facility] Work Phone: Evaluation note* Diagnosis S/P hysterectomy Acquired absence of both cervix and uterus documented in this encounter [facility]* Diagnosis Preop examination Unspecified pre-operative examination Menorrhagia with regular cycle Pelvic pain in female Unspecified symptom associated with female genital organs Dyspareunia in female Dysmenorrhea documented in this encounter [facility]* Diagnosis Postoperative visit S/P hysterectomy Acquired absence of both cervix and uterus documented in this encounter [facility]* Diagnosis Hot flashes documented in this encounter [facility]* Diagnosis Nipple discharge- Primary Other sign and symptom in breast Mass of upper outer quadrant of left breast Inversion of left nipple Other general symptoms and signs [facility] Diagnosis Hypothyroidism, unspecified type- Primary [facility] this [facility] Diagnosis Low serum adrenocorticotrophic hormone (ACTH)- Primary Hypothyroidism, unspecified type documented in this encounter [facility] general Narrative - Reported* Type Description Date Medical History Asthma Medical History Depression Medical History GERD Medical History Fibromyalgia Medical History Anxiety Surgical History Left wrist fracture repair 2013 Surgical History Gall Bladder 2001 Surgical History Skin Graft Hospitalization History See Hospitalization History 1 Jun 2014 [employer] Other Hospital Discharge instructionsAmbulatory Orders* Referral to Rheumatology Time Frame: 07/13/24, Location: None Selected [facility] Work Phone: InstructionsNot on filedocumented in this encounter [facility] Summary Purpose Family History No Family History Records Found Relationship Condition Age at Onset Recorded Date/T juju family member Unknown Not Specified Family history of mental disorder Unknow n Relationship Condition Age at Onset Recorded Date/T juju family member Unknown mother Family history of mental disorder Unknown Advance Directives No Advanced Directives Records Found Advance Directive Response Recorded Date/ Time Advance Directives No September 27 9:03am Advance Directive Response Recorded Date/ Time Advance Directives No September 27 8:03am Reason for Referral Reason *FU 06/04 Recent l abs normal in March on present dose, would like to have second opinion due to fatigue. Diagnosis 1 Acquired hypothyroid ism (E03.9) Referral Organization [facility] Referring Provider First Name Royal Referring Provider Last Name Michelle Referring Provider Specialty Family [facility] Referred Organization [facility] Referred Address [address],[place], [place],[address] Referred Provider Specialty Endocrinolog y Referral Priority Routine General Notes Kasie Lucretia 12:22:13 PM >received today, attachments made, form [...] Reason for Visit Fibromyalgia Thoracic back pain Chief Complaint Admit Date check up/pain April 14, 2024 1 :02pm Unknown May 16, 2024 11:56am Reason for Visit Admit Date Fibromyalgia April 14, 2024 1 :02pm Migraine headache April 14, 2024 1 :02pm Chief Complaint Admit Date check up/pain April 14, 2024 1 :02pm Unknown May 16, 2024 11:56am VIRTUAL:Med f/u May 18, 2024 11:10am Chief Complaint Admit Date check up/pain April 14, 2024 1 :02pm Unknown May 16, 2024 11:56am VIRTUAL:Med f/u May 18, 2024 11:10am Sinus Infection June 14, 2024 9:13am Night Sweats/Ear Infection July 13, 2024 10:25am Reason for Visit Admit Date Fibromyalgia April 14, 2024 1 :02pm Migraine headache April 14, 2024 1 :02pm Depression May 18, 2024 11:10am Fibromyalgia May 18, 2024 11:10am Migraine headache May 18, 2024 11:10am Thoracic back pain May 18, 2024 11:10am Fibromyalgia June 14, 2024 9:13am Migraine headache June 14, 2024 9:13am Sinusitis, acute maxillary May 9:13am Thoracic back pain June 14, 2024 9:13am Fibromyalgia July 13, 2024 1 0:25am Thoracic back pain July 13, 2024 1 0:25am Chief Complaint Admit Date Sinus Infection June 14, 2024 9:13am Night Sweats/Ear Infection July 13, 2024 10:25am breathing difficulty, fatigue, cough [facility] 2024 9:17am Reason for Visit Admit Date Fibromyalgia June 14, 2024 9:13am Migraine headache June 14, 2024 9:13am Sinusitis, acute maxillary May 9:13am Thoracic back pain June 14, 2024 9:13am Fibromyalgia July 13, 2024 1 0:25am Hot flashes due to menopause June 10:25am Migraine headache July 13, 2024 1 0:25am Right otitis media July 13, 2024 1 0:25am Thoracic back pain July 13, 2024 1 0:25am Chief Complaint Admit Date breathing difficulty, fatigue, cough [facility] 2024 9:17am Flare up of fibromyalgia October 19 6:08pm Reason for Visit Admit Date Anxiety September 01, 2024 9:17 am Asthma exacerbation September 01, 2024 9:17 am Fibromyalgia September 01, 2024 9:17 am Thoracic back pain September 01, 2024 9:17 am Chief Complaint Admit Date breathing difficulty, fatigue, cough Mar 2024 9:17am Flare up of fibromyalgia October 19 6:08pm BP high, headache October 20, 2024 9:5 7am Additional Source Comments INFORMATION SOURCE (unrecogn ized section and content) DATE CREATED AUTHOR 10/16/2018 [facility] DATE CREATED AUTHOR AUTHOR'S ORGANIZ ATION 11/05/2022 [facility] DATE CREATED AUTHOR AUTHOR'S ORGANIZ ATION 11/13/2023 [facility] DATE CREATED AUTHOR AUTHOR'S ORGANIZ ATION 07/11/2024 [facility] DATE CREATED AUTHOR AUTHOR'S ORGANIZ ATION 09/11/2024 [facility] DATE CREATED AUTHOR AUTHOR'S ORGANIZ ATION 10/21/2024 [facility] DATE CREATED AUTHOR AUTHOR'S ORGANIZ ATION 10/31/2024 [facility] REASON FOR VISIT (unrecogniz ed section and content) Reason Comments Post-op Visit Reason Comments Pre-op Visit Reason Comments Post-op Visit Pt present today for a 6 week post operative visit. Pt had a robotic hysterectomy on 05/16/2024. Reason Comments New Patient Nipple discharge sli ghtpain on left side during period Specialty Diagnoses / Procedures Referred By Contac t Referred To Contact Breast Surgery Diagnoses Nipple discharge [facility] [address] [place] [address] [address] [place] [address] Ana Strong MD [address] [facility] [address] [place] [address] Referral ID Status Reason Start Date Expiration Date V isits Requested Visits Authorized [id number] Pending Review 11/03/2023 11/02/2024 1 1 Reason Comments Thyroid Problem Reason Comments Established Patient Follow-Up Care Teams (unrecognized sec tion and content) Team Status: Active Member Role Status Dates Royal Martinez MD Primary Care Provider Active Team Status: Inactive Member Role Status Dates Royal Martinez MD Primary Care Provide r, Attending Provider Active Start: June 14, 2024 End: June 14, 2024 Team Status: Inactive Member Role Status Dates Royal Martinez MD Primary Care Provide r, Attending Provider Active Start: July 13, 2024 End: July 13, 2024 Team Status: Inactive Member Role Status Dates Royal Martinez MD Primary Care Provide r, Attending Provider Active Start: September 01, 2024 End: September 01, 2024 Team Status: Active Member Role Status Dates Royal Martinez MD Primary Care Provider Active Start: April 14, 2024 Yoandy Valadez DO Attending Provider Active Start : April 14, 2024 Team Status: Inactive Member Role Status Dates Royal Martinez MD Primary Care Provide r, Attending Provider Active Start: April 14, 2024 End: April 14, 2024 Team Status: Active Member Role Status Dates Royal Martinez MD Primary Care Provider Active Start: May 11, 2024 Yoandy Rory , DO Attending Provider Active Start : May 11, 2024 Team Status: Active Member Role Status Dates Royal Martinez MD Primary Care Provider Active Start: May 16, 2024 Yoandy Rory , Attending Provider Active Start : May 16, 2024 Team Status: Inactive Member Role Status Dates Yoandy Rory , DO Attending Provider Active Start : May 16, 2024 End: May 16, 2024 Team Status: Inactive Member Role Status Wilver Martinez MD Primary Care Provide r, Attending Provider Active Start: May 18, 2024 End: May 18, 2024 Team Status: Inactive Member Role Status Wilver Martinez MD Primary Care Provide r, Attending Provider Active Start: October 26, 2023 End: October 26, 2023 Team Status: Active Member Role Status Dates Royal Martinez MD Primary Care Provider Active Start: November 02, 2023 Yoandycarmelina Paulao , Attending Provider Active Start : November 02, 2023 Team Status: Active Member Role Status Dates Royal Martinez MD Primary Care Provider Active Start: November 12, 2023 Yoandy Valadez DO Attending Provider Active Start : November 12, 2023 Team Status: Inactive Member Role Status Dates Royal Martinez MD Primary Care Provide r, Attending Provider Active Start: January 17, 2024 End: January 17, 2024 Team Status: Active Member Role Status Dates Provider Conversion Attending Provider Active St art: July 05, 2023 Team Status: Active Member Role Status Dates Royal Martinez MD Primary Care Provider Active Start: August 26, 2023 SANTA Roe Attending Provider Active Start : August 26, 2023 Team Status: Inactive Member Role Status Dates Royal Martinez MD Primary Care Provide r, Attending Provider Active Start: September 28, 2023 End: September 28, 2023 Team Status: Inactive Member Role Status Dates Royal Martinez MD Primary Care Provider Active Start: October 13, 2023 End: October 13, 2023 Yoandy Valadez Attending Provider Active Start: 2023 End: October 13, 2023 Dispatcher [employer] Relationship Specialty Start Date End Date Royal Martinez MD [address] [place] [facility] [place] [phone] PCP - General Family Medicine 11/24/22 Dispatcher [employer] Relationship Specialty Start Date End Date Royal Martinez MD [address] [place] [facility] [place] [address] PCP - General Family Medicine 11/24/22 Dispatcher [employer] Relationship Specialty Start Date End Date Royal Martinez MD [address] [place] [facility] [phone] PCP - General Family Medicine 11/24/22 Dispatcher [employer]active [employer] Dis[employer] Relationship Specialty Start Date End Date Royal Martinez MD [address] [place] [facility] [phone] PCP - General Family Medicine 11/24/22 Dispatcher [employer]active [employer] Dis[employer] Relationship Specialty Start Date End Date Royal Martinez MD [address] [place] [facility] [phone] PCP - General Family Medicine 11/24/22 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 [employer]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 Waste Dis[employer] Relationship Specialty Start Date End Date Royal Martinez MD [address] [place] [phone] PCP - General Family Medicine 11/24/22 Dispatcher [employer]active [employer] Dis[employer] Relationship Specialty Start Date End Date Royal Martinez MD [address] [place] [phone] PCP - General Family Medicine 11/24/22 Dispatcher [employer] Relationship Specialty Start Date End Date Royal Martinez MD [address] [facility], [place] [id number] PCP - General 09/10/16 Dispatcher [employer] Relationship Specialty Start Date End Date Royal Martinez MD [address] [place] [phone] PCP - General Family Medicine 11/24/22 Dispatcher [employer] Relationship Specialty Start Date End Date Royal Martinez MD [address] [place] [phone] Referring Family Medicine 07/24/24 Team Status: Active Member Role Status Dates Royal Martinez MD Primary Care Provider Active Start: October 10, 2024 Eddie Buckner [facility] DO Attending Provider Active Start: October 10, 2024 Team Status: Inactive Member Role Status Dates Royal Martinez MD Primary Care Provider Active Start: October 19, 2024 End: October 19, 2024 Damian Mckeon DO Emergency Provider Active St art: October 19, 2024 End: October 19, 2024 Team Status: Inactive Member Role Status Dates Royal Martinez MD Primary Care Provide r, Attending Provider Active Start: October 20, 2024 End: October 20, 2024 Dispatcher [employer] Relationship Specialty Start Date End Date Royal Martinez MD [address] [facility] [place] [address] Referring Family Medicine 07/24/24 Goals (unrecognized section and content) Goals may be documented in a n alternate section Source Comments (unrecognize d section and content) In the event this informatio n is protected by the Federal Confidentiality of Alcohol and Drug Abuse Patient Records regulations: The Federal rules restrict any use of the information to criminally investigate or prosecute any alcohol or drug abuse patient.[facility] the event this information is protected by the Federal Confidentiality of Alcohol and Drug Abuse Patient Records regulations: The Federal rules restrict any use of the information to criminally investigate or prosecute any alcohol or drug abuse patient.[facility] FOR RECORDS PERTAINING TO PATIENTS WHO ARE [...] BE BASED ON THE PRIMARY CLINICAL RECORDS. [facility]. provides no warranty or guarantee of the accuracy or completeness of information in this document.
[2024-11-06] MEDS: ALBUTEROL SULFATE 2.5 MG/3 ML VIAL NEB IH (10:06)
== END 2024-11-06 09:08 | disposition home or self-care (01) ==
LOC: CARD 09:07
PROVIDERS: PCP Family Medicine; Visit Provider Internal Medicine
DX: J45.40 Moderate persistent asthma, uncomplicated (principal)
CPT/HCPCS: 94060; 94726; 94729

== ENCOUNTER 2025-01-16 22:17 | Outpatient (REF) | payer OTHER, MEDICAID, SELFPAY ==
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
--- OUTSIDE RECORDS SUMMARY | 2025-01-16 11:00 | XMS_ITS | Encounter Summary ---
Author Organization [facility] Address [address] [place] [address] Care Team Providers Care Car Framer Name Role Phone Ngoc Aceves MD Primary Care Provider [phone] Reason for Visit * Reason Comments Well Women Visit Encounter Details Date Type Department Care Team (Late Contact Info) Description 01/16/2025 11:00 AM EDT Office Visit [facility] [address] [facility] [place] [id number] Yoandy Valadez [address] [place] [address] Well woman exam with routine gynecological exam Social History Tobacco Use Types Packs/Day Years Used Date Smoking Tobacco: Former Cigarettes Alcohol Use Standard Drinks/Week Comments Yes 0 (1 standard drink = 0.6 oz pur e alcohol) Comments No Sex and Gender Information Value Date Recorded Sex Assigned at Not on file Legal Sex Female 7:17 PM EDT Gender Identity Not on file Sexual Orientation Not on file documented as of this encounter Last Filed Vital Signs Vital Sign Reading Time Taken Comments Blood Pressure 110/70 01/16/2025 11:07 AM EDT Pulse - - Temperature - - Respiratory Rate - - Oxygen Saturation - - Inhaled Oxygen Concentration - - Weight 72 kg (158 lb 12.8 oz) 01/16/2025 11:07 A M EDT Height - - Body Mass Index 23.45 01/12/2024 2:54 PM EDT documented in this encounter Plan of Treatment Upcoming Encounters Date Type Department Care Team (Late Contact Info) Description 01/24/2026 11:00 AM EDT Procedure Visit [facility] [address] [facility] [address] Yoandy Valadez, DO [address] [place] [address] [address] [place], [place] [id number] Scheduled Orders Name Type Priority Associated Diagnoses Orde r Schedule THIN PREP TIS PAP AND HR HPV DNA Pathology and Cytology Routine Well woman exam with routine gynecological exam Ordered: 01/16/2025 documented as of this encounter Visit Diagnoses Diagnosis Well woman exam with routine gynecological exam Routine gynecological examination documented in this encounter Care Teams Car Framer Relationship Specialty Start Date End Date Ngoc Aceves MD [address] [facility] [place] [id number] PCP - General Family Medicine 11/24/22 documented as of this encounter
--- OUTSIDE RECORDS SUMMARY | 2025-01-16 22:22 | XMS_ITS | CCD ---
Author Organization [facility] Care Team Providers Care Microbiology Manager Name Role Phone JOSÉ SOSA Referring Unavailable ROYAL MARTINEZ Primary Care Unavailable JOSÉ SOSA Referring Unavailable ROYAL MARTINEZ Primary Care Unavailable Royal Martinez Unavailable MARIO CERVANTES Admitting Unavailable MICHELLE, DR ROYAL Lyle Primary Care Unavailable CHARLOTTE, DR VISH Mart Consulting Unavailable RASHIDA Saldana, MARIO Attending Unavailable RASHIDA ., MARIO Consulting Unavailable RORY ., DR WILSON Attending Unavailable RORY ., DR WILSON Consulting Unavailable RORY ., DR WILSON Admitting Unavailable DR ROYAL MARTINEZ Primary Care Unavailable MD Royal Martinez Primary Care Provider Yoandy Valadez Attending Provider ROYAL MARTINEZ Referring Unavailable ROYAL MARTINEZ Primary Care Unavailable ROYAL MARTINEZ Referring Unavailable ROYAL MARTINEZ Primary Care Unavailable ROYAL MARTINEZ Referring Unavailable ROYAL MARTINEZ Primary Care Unavailable Royal Martinez MD Primary Care Provider [phone] Yoandy Valadez DO Attending Provider [phone] Royal Martinez MD Primary Care Provider Royal Martinez MD Unavailable DEEPA CARRENO Referring Unavailable ROYAL MARTINEZ Primary Care Unavailable DEEPA CARRENO Referring Unavailable ROYAL MARTINEZ Primary Care Unavailable Royal Martinez MD Primary Care Provider Damian Mckeon DO Emergency Provider Yoandy Valadez Attending Unavailable Yoandy Valadez Admitting Unavailable Royal Martinez Primary Care Unavailable Damian Mckeon Attending Unavailable Damian Mckeon Admitting Unavailable Royal Martinez MD Primary Care Provider Royal Martinez MD Primary Care Provider TR SHEN Attending Unavailable YOANDY VALADEZ Attending Unavailable RORY, YOANDY Attending Unavailable ANJEL, JENNIFER Attending Unavailable ANJEL, JENNIFER Attending Unavailable ROYAL MARTINEZ Primary Care Unavailable SERHAL, RONNY Attending Unavailable TANKMAGALIS MANCINI Attending Unavailable SERHAL, RONNY Attending Unavailable ROYAL MARTINEZ Primary Care Unavailable SERHAL, RONNY Referring Unavailable Royal Martinez MD Primary Care Provider ROMDEEPA Parekh Attending Unavailable ROYAL MARTINEZ Referring Unavailable ROYAL MARTINEZ Primary Care Unavailable ROMIzabella DEEPA H Attending Unavailable ROYAL MARTINEZ Referring Unavailable ROYAL MARTINEZ Primary Care Unavailable Allergies Allergy Classification Reported Allergen(s) Allergy Type Date of Onset Reaction(s) Facility (20 sources) Acetaminophen / butalbital / Caffeine Drug Allergy 11-04-19 13 Unknown [facility] (20 sources) cyclobenzaprine; Translations: [Flexeril] Drug Allergy 12-26-19 13 Unknown [facility] (20 sources) Sertraline; Translations: [SERTRALINE] Drug Allergy 12-26-19 13 Unknown [facility] (20 sources) SUMAtriptan; Translations: [SUMATRIPTAN] Drug Allergy 11-04-19 13 Itching [facility] (20 sources) topiramate; Translations: [TOPIRAMATE] Drug Allergy 12-26-19 13 [facility] (20 sources) varenicline; Translations: [VARENICLINE] Drug Allergy 10-22-19 21 Unknown [facility] (1 source) Acetaminophen / butalbital / Caffeine Drug Allergy 12-26-19 13 [facility] Rep[facility] (1 source) diphenhydrAMINE Drug Allergy 12-26-19 13 [facility] (1 source) Iodine (And Iodine Containting Drugs) Drug allergy (disorder) [facility] (7 sources) Plasmin Drug Allergy 12-26-19 13 Unknown [facility] (5 sources) Progesterone; Translations: [PROGESTERONE] Drug Allergy 07-14-19 15 [facility] (1 source) Sertraline Drug Allergy 12-26-19 13 [facility] (1 source) topiramate Drug Allergy 12-26-19 13 [facility] (1 source) traMADol Drug Allergy 06-15-20 16 [facility] (1 source) varenicline Drug Allergy [facility] (13 sources) Acetaminophen / butalbital / Caffeine / Codeine Drug Allergy Unknown [facility] Other (1 source) Contrast media Propensity to adverse reactions 09-11-19 17 Unknown [facility] Other (20 sources) Iodinated contrast media (substance) Drug allergy 07-26-19 24 Unknown [facility] Other (1 source) Allergies Reconciled Propensity to adverse reactions 03-31-20 21 Unknown [facility] Other (1 source) patient allergy list reviewed by nurse or physicia Propensity to adverse reactions 02-17-20 19 Comment:Done [facility] Other (13 sources) MRI DYE Propensity to adverse reactions 10-20-19 17 Unknown [facility] Other (13 sources) Chantix *PSYCHOTHERAPEUTIC AND NEUROLOGICAL AGENTS Propensity to adverse reactions Unknown [facility] Other (13 sources) Contrast Allergy PreMed Pack *CORTICOSTEROIDS* Propensity to adverse reactions Comment:MRI DYE [facility] Other (13 sources) Flexeril *MUSCULOSKELETAL THERAPY AGENTS* Propensity to adverse reactions Unknown [facility] Other (20 sources) Acetaminophen Drug Allergy 09-28-19 24 [facility] (20 sources) butalbital Drug Allergy 09-28-19 24 [facility] (20 sources) Caffeine Drug Allergy 09-28-19 24 [facility] (20 sources) cyclobenzaprine; Translations: [CYCLOBENZAPRINE] Drug Allergy 11-04-19 13 [facility] (12 sources) Iodinated Contrast Media; Translations: [IODINATED CONTRAST MEDIA] Allergy to substance 07-26-19 [facility] (11 sources) Chantix *PSYCHOTHERAPEUTIC AND Allergy to substance 09-28-19 [facility] Comment on above: Free Text Allergy: C hantix *PSYCHOTHERAPEUTIC AND NEUROLOGICAL AGENTS (11 sources) Contrast Allergy PreMed Pack * Allergy to substance 07-05-19 Comment:MRI DYE [facility] Comment on above: Free Text Allergy: C ontrast Allergy PreMed Pack *CORTICOSTEROIDS* (11 sources) Fioricet/Codeine Allergy to substance 09-28-19 [facility] (8 sources) Contrast media; Translations: [DYE] Propensity to adverse reactions to drug (disorder) 10-22-19 [facility] (8 sources) Corticosteroids; Translations: [CORTICOSTEROIDS (GLUCOCORTICOIDS)] Propensity to adverse reactions to drug (disorder) 10-22-19 [facility] (20 sources) diphenhydrAMINE; Translations: [DIPHENHYDRAMINE] Drug Allergy 12-26-19 13 Other: See Comments [facility] (8 sources) SUMAtriptan; Translations: [SUMATRIPTAN SUCCINATE] Drug Allergy 12-01-19 17 Itching [facility] (20 sources) traMADol; Translations: [TRAMADOL] Drug Allergy 11-04-19 13 Unknown [facility] (4 sources) BUTALBITAL-ACETAMI NOPHEN-CAFF; Translations: [BUTALBITAL-ACETAM INOPHEN-CAFF] Propensity to adverse reactions to drug (disorder) 11-04-19 13 [facility] (8 sources) DIVALPROEX; Translations: [DIVALPROEX] Propensity to adverse reactions to drug (disorder) 12-03-19 17 [facility] (8 sources) IODINE AND IODIDE CONTAINING PRODUCTS; Translations: [IODINE AND IODIDE CONTAINING PRODUCTS] Propensity to adverse reactions to food (disorder) 10-22-19 [facility] (8 sources) OTHER; Translations: [OTHER] Propensity to adverse reactions (disorder) 10-22-19 [facility] (19 sources) Progesterone Drug Allergy 07-14-19 15 Swelling [facility] (19 sources) Topiramate Allergy to substance 12-26-19 13 [facility] (18 sources) Gylbywraki-Cmry-Mq ff-Cod Drug Allergy 09-28-19 24 [facility] (20 sources) Fibrinolysin; Translations: [FIBRINOLYSIN] Allergy to substance 12-26-19 13 [facility] (19 sources) Lvcmrmormc-Eugv-Gx ffeine Propensity to adverse reactions 11-25-19 23 [facility] (18 sources) Prednisone & Diphenhydramine Drug Allergy 07-05-19 24 [facility] (10 sources) Iodine I 131 Tositumomab Allergy to substance 07-06-19 25 [facility] (11 sources) Progesterone Drug Allergy 07-14-19 15 [facility] Medications Current Medications Medication Drug Class(es) Dates [...] mouth daily. 30 tablet 6 09/30/2016 Active cephalexin 500 mg oral capsule (20 sources) Cephalosporin Antibacterial Start: 09-28-2023 End: 09-28-2023 take 1 tablet by mouth twice daily Cephalexin 500 mg tablet Discontinued 500 MG PO Twice daily September 28, 2023 12:00am September 28, 2023 1:54pm Start: 06-25-2023 End: 10-20-2024 take 1 capsule by mouth in the morning cephalexin (Keflex) 500 MG capsule Indications: Cystic acne Take 1 capsule (500 mg) by mouth in the morning and 1 capsule (500 mg) before bedtime. 60 capsule 1 10/17/2024 Active take 1 capsule by [facility] every six hours Keflex 250 MG 1 capsule Orally every 6 hrs Active cholecalciferol 0.05 mg oral capsule (19 sources) Vitamin D take 1 capsule by mouth once daily cholecalciferol (Vitamin D-3) 50 MCG (1999 UT) capsule Take 2,000 Units by mouth Daily Active dicyclomine hydrochloride 20 mg oral tablet (11 sources) Anticholinergic take 1 tablet by mouth every eight hours as needed dicyclomine (BENTYL) 20 mg tablet Take 1 tablet (20 mg total) by mouth every 8 (eight) hours as needed. Active take 1 capsule by [facility] four times daily as needed Bentyl 10 mg 1 capsule Orally Four times a day as needed Not-Taking docosahexaenoic acid 200 mg oral capsule (3 sources) Start: 09-01-2024 Docosahexaenoic Acid ( Dha) 200 mg capsule Active MG PO September 01, 2024 1:00am ferrous sulfate (19 sources) Start: 05-05-2023 take 1 tablet by mouth in the morning Ferrous Sulfate (IRON PO) Take 1 tablet by mouth in the morning. 05/05/2023 Active fluconazole 150 mg oral tablet (2 sources) Azole Antifungal Start: 11-13-2024 End: 11-13-2024 take 1 tablet by mouth once, then take 1 tablet by mouth once fluconazole (Diflucan) 150 MG tablet Indications: Yeast infection Take 1 tablet (150 mg) by mouth 1 (one) time for 1 dose This is a 1 time dose, take single tablet by mouth. 1 tablet 1 11/13/2024 11/13/2024 Active 12 hr guaiFENesin 600 mg extended release oral tablet (20 sources) Start: 10-26-2022 take 1 tablet by mouth every twelve hours in the morning Mucus Relief 600 MG 12 hr tablet Take 600 mg by mouth in the morning and 600 mg before bedtime. 10/26/2022 Active ibuprofen 800 mg oral tablet (20 sources) Nonsteroidal Anti-inflammatory Drug Start: 06-13-2024 End: 10-20-2024 take 1 tablet by mouth every eight hours for pain ibuprofen 800 MG tablet Indications: Generalized pain Take 1 tablet (800 mg) by mouth every 8 (eight) hours if needed for mild pain 20 tablet 06/13/2024 Active levothyroxine (20 sources) l-Thyroxine Start: 09-18-2024 take 1 tablet by mouth [...] BY MOUTH DAILY for 30 Active Magnesium (19 sources) take 1 capsule by mouth once daily Magnesium 400 MG capsule Take 400 mg by mouth Daily Active magnesium aspart,citrate,oxide (TRIPLE MAGNESIUM COMPLEX) 400 mg magnesium cap (6 sources) take 1 capsule by mouth once daily magnesium aspart,citrate,oxide (TRIPLE MAGNESIUM COMPLEX) 400 mg magnesium cap Take 400 mg by mouth once daily. Active Pre-Ruthy (20 sources) Pre- Active Vit-Fe Fumarate-FA ( Vitamins) 28-0.8 MG tablet (15 sources) Start: 12-26-2024 take 1 tablet by mouth once daily Vit-Fe Fumarate-FA ( Vitamins) 28-0.8 MG tablet Indications: Cystic acne TAKE 1 TABLET BY MOUTH DAILY 30 tablet 11 12/26/2024 Active Start: 09-21-2023 End: 09-20-2024 take 1 tablet by mouth once daily Vit-Fe Fumarate-FA ( Vitamins) 28-0.8 MG tablet Indications: Cystic acne Take 1 tablet by mouth Daily 30 tablet 3 09/21/2023 09/20/2024 Active VITAMIN PLUS LOW IRON 27 mg iron- 1 mg (6 sources) Start: 05-05-2023 take 1 tablet by mouth once daily in the morning VITAMIN PLUS LOW IRON 27 mg iron- 1 mg Take 1 tablet by mouth every morning. 05/05/2023 Active VITAMIN PLUS LOW IRON 27 mg iron- 1 mg tablet (5 sources) Start: 10-10-2020 take 1 tablet by mouth [...] 14, 2024 10:43am July 21, 2024 9:36am Rimegepant Sulfate (NURTEC PO) (4 sources) Rimegepant Sulfa te (NURTEC PO) Take by mouth Active sulfamethoxazole 800 mg / trimethoprim 160 mg oral tablet (6 sources) Dihydrofolate Reductase Inhibitor Antibacterial, Sulfonamide Antimicrobial Start: 09-03-19 take 1 tablet by mouth every twelve hours Bactrim DS 800-160 MG 1 tablet Orally Twice a day for 10 day(s) Aug, Active Tens Unit And Electrodes (3 sources) Start: 10-26-19 Tens Unit And Electrodes Active 0 .Route October 26, 2023 12:00am As directed Tens Unit And Electrodes combo pack (6 sources) Start: 10-26-19 Tens Unit And Electrodes combo pack Active 0 .Route October 26, 2023 12:00am As directed Start: 10-26-2023 Tens Unit And Electrodes combo pack Active 0 .Route October 25, 2023 11:00pm As directed 60 actuat tiotropium 0.54695 mg/actuat inhalation spray (5 sources) Anticholinergic SPIRIVA RESPIMAT 1.25 mcg/actuation inhaler Inhale [...] Drug Class(es) Dates Sig (Normalized) Sig (Original) [id number] 200 actuat albuterol 0.09 mg/actuat metered dose [...] 4 more days for 5 Feb, Active cloNIDine hydrochloride 0.1 mg oral tablet (11 sources) Central alpha-2 Adrenergic Agonist Start: 07-13-2024 End: 10-13-2024 take 1 tablet by mouth once daily at bedtime Clonidine Hcl 0.1 mg tablet Discontinued 0.1 MG PO Daily at bedtime September 14, 2024 2:30pm October 13, 2024 8:25am cosyntropin 0.25 mg injection (CORTROSYN) (4 sources) Start: 10-28-2024 End: 11-09-2024 cosyntropin 0.25 mg injection (CORTROSYN) Start: 10-28-2024 End: 11-09-2024 inject 2-5 mL by intramuscular injection once 0.25 mg, INTRAMUSCULAR, ONCE (UP TO 30 DAYS AMB), 1 dose, On 10/28/24 at 1830, Intramuscular administration: Reconstitute 0.25 mg with 1 mL of NS Intravenous administration: Reconstitute 0.25 mg with 1 mL of NS and further dilute in NS to a total volume of 2 to 5 mL Start: 10-28-2024 End: 11-27-2024 cosyntropin 0.25 mg injectio n (CORTROSYN) fluticasone propionate 0.05 mg/actuat metered dose nasal [...] a day for 30 day(s) Jun, Not-Taking methylPREDNISolone 4 mg oral tablet (20 sources) [...] mg by mouth at bedtime 09/28/2023 Active OXcarbazepine 300 mg oral tablet (6 [...] Start: 07-02-2023 take 3 tablets by mo ut once daily, then take 2 tablets by mouth once daily, then take 1 tablet by mouth once daily predniSONE (DELTASONE) 20 mg tablet TAKE 3 TABLETS BY MOUTH DAILY FOR 3 DAYS, then TAKE 2 TABLETS DAILY FOR 3 DAYS, then TAKE 1 TABLET DAILY FOR 3 DAYS 07/02/2023 Active Start: 03-11-2023 take 2 tablets by mo [facility] every twenty-four hours predniSONE 20 MG 2 tablets Orally Once a day for 5 days Feb, Active pregabalin 200 mg oral capsule (20 sources) Start: 01-17-2024 End: 10-19-2024 take 1 capsule by mouth twice daily Pregabalin 200 mg capsule Discontinued 200 MG PO Twice daily 60 May 18, 2024 1:40pm June 19, 2024 9:31am Fill on or after 05/21. Start: 04-05-2023 End: 01-17-2024 take 1 capsule by mouth twice daily pregabalin (LYRICA) 150 mg capsule Take 150 mg by mouth two times a day. 07/01/2023 Active Start: 07-01-2022 take 1 capsule by mo [facility] every twelve hours Lyrica 150 MG 1 capsule Orally Twice a day for 30 days October, Active Start: 07-01-2022 take 1 capsule by mo ut every twenty-four hours Lyrica 150 MG 1 capsule Orally Once a day for 30 days Jun, Active take 2 capsules by out in the morning pregabalin (Lyrica) 75 MG capsule Take 150 mg by mouth in the morning and 150 mg before bedtime. Active take 1 capsule by mo ut in the morning, then take 1 capsule [...] with regular cycle] Onset: 12-02-2015 02-02-2023 Chronic Miscellaneous mental health disorders (2 sources) Pain disorder with psychological factor; Translations: [Pain disorder with related psychological factors] 01-15-2025 Chronic Mood disorders (7 sources) Major depressive disorder, single episode, unspecified; Translations: [Depression] Onset: 04-21-2022 05-18-2024 Chronic Mycoses (2 sources) Mycosis; Translations: [Candidiasis, unspecified] 11-13-2024 Episodic Nausea and vomiting (5 sources) Nausea with vomiting, unspecified; Translations: [Vomiting] Onset: 11-11-2018 Episodic Osteoporosis (1 source) Primary osteoporosis; Translations: [Age-related osteoporosis without current pathological fracture] Chronic Other aftercare (20 sources) High risk drug monitoring status; Translations: [assisted (current) use of opiate analgesic] Episodic Other aftercare (2 sources) Postoperative visit; Translations: [Encounter for other specified surgical aftercare] 07-06-2024 Episodic Other complications of ; puerperium affecting management of mother (1 source) Galactorrhea not associated with childbirth; Translations: [Galactorrhea] Episodic Other complications of (20 sources) Maternal obesity complicating , childbirth and the puerperium, antepartum; Translations: [Obesity complicating , unspecified trimester] Onset: 10-29-2020 02-02-2023 Chronic Other complications of (2 sources) High risk ; Translations: [Supervision of high risk , unspecified, unspecified trimester] Onset: 10-07-2020 Resolved: 10-15-2020 Episodic Other connective tissue disease (11 sources) Fibromyalgia; Translations: [Fibromyalgia] 11-26-2023 Episodic Other connective tissue disease (12 sources) Fibromyalgia; Translations: [Myalgia and myositis, unspecified] Onset: 11-08-2024 01-17-2024 Episodic Other female genital disorders (20 sources) Abnormal uterine bleeding; Translations: [Abnormal uterine and vaginal bleeding, unspecified] Onset: 02-02-2023 02-02-2023 Chronic Other female genital disorders (1 source) Pain in female genitalia on intercourse; Translations: [Unspecified dyspareunia] 03-22-2024 Chronic Other female genital disorders (2 sources) Vaginal discharge; Translations: [Other specified noninflammatory disorders of vagina] 11-13-2024 Episodic Other gastrointestinal disorders (1 source) Irritable bowel syndrome with diarrhea; Translations: [Irritable bowel syndrome with diarrhea] Chronic Other nervous system disorders (1 source) Sensory disorder of smell and/or taste; Translations: [Unspecified disturbances of smell and taste] Episodic Other non-traumatic joint disorders (19 sources) Derangement of right shoulder joint; Translations: [...] and joints of left foot] Episodic Other non-traumatic joint disorders (4 sources) Multiple joint pain; Translations: [Pain in unspecified joint] 11-08-2024 Episodic Other non-traumatic joint disorders (1 source) Pain in unspecified joint; Translations: [Pain in joint, multiple sites] Onset: 11-08-2024 Episodic Other nutritional; endocrine; and metabolic disorders [...] Chronic Other nutritional; endocrine; and metabolic disorders (20 sources) Obesity; Translations: [Obesity, unspecified] Onset: 11-10-2021 02-02-2023 Chronic Other skin disorders (1 source) Acne vulgaris; Translations: [Acne vulgaris] Episodic Other upper respiratory disease (1 source) Seasonal allergic rhinitis; Translations: [Other seasonal allergic rhinitis] Onset: 12-21-2018 Chronic Other upper respiratory disease (20 sources) Allergic rhinitis; Translations: [Other allergic rhinitis] [...] (2 sources) Flushing; Translations: [Flushing] 07-25-2024 Episodic Substance-related disorders (20 sources) Tobacco user; Translations: [Nicotine dependence, cigarettes, in remission] Onset: 09-30-2016 01-10-2023 Chronic Thyroid disorders (20 sources) Hypothyroidism; Translations: [Hypothyroidism, unspecified] Onset: 02-02-2023 Chronic Unclassified (1 source) Long-term current use of drug therapy; Translations: [Long-term (current) use of other medications] Onset: 10-04-2014 Unclassified (1 source) New Patient Onset: 01-05-2024 Past or Other Problems Problem Classification Problem Date Documented Da te Episodic/Chronic Abdominal hernia (20 sources) Umbilical hernia; Translations: [Umbilical hernia without [...] ] Onset: 06-16-2016 Episodic Headache; including migraine (19 sources) Headache; Translations: [Headache] Onset: 08-30-2012 02-02-2023 Episodic Hemorrhage during ; abruptio placenta; placenta previa (20 sources) Placenta previa without hemorrhage; Translations: [Low lying placenta NOS or without hemorrhage, unspecified trimester] Onset: 10-29-2020 02-02-2023 Episodic Mood disorders (5 sources) Mood disorders Onset: 01-05-2024 01-05-2024 Nonmalignant breast conditions (20 sources) Mastitis without abscess; Translations: [O/E-breast lump-upper out-quad] Onset: 07-10-2013 Episodic Other aftercare (1 source) Other remote computer terminal operator (current) drug therapy; Translations: [OTH CORRECTION CURRENT DRUG THERAPY] Onset: 04-21-2022 Episodic Other aftercare (20 sources) Long-term current use of inhaled steroid; Translations: [continuous churn buttermaker (current) use of inhaled steroids] Onset: 02-02-2023 [...] unspecified] Resolved: 05-06-2021 Episodic Other complications of (20 sources) Abnormal findings on screening of mother; Translations: [Abnormal hematological finding on screening of mother] Onset: 10-13-2020 Resolved: 05-06-2021 02-02-2023 Episodic Other complications of (20 sources) Asthma; Translations: [Diseases of the respiratory system complicating , unspecified trimester] Onset: 10-29-2020 02-02-2023 Episodic Other complications of (20 sources) Depressive disorder in mother complicating ; Translations: [Other mental disorders complicating , unspecified trimester] Onset: 02-02-2023 02-02-2023 Episodic Other complications of (20 sources) Tobacco smoking in mother complicating ; Translations: [Smoking (tobacco) complicating , unspecified trimester] Onset: 09-30-2016 02-02-2023 Episodic Other complications of (5 sources) Multigravida of advanced maternal age; Translations: [Supervision of elderly multigravida, unspecified trimester] Onset: 10-29-2020 10-29-2020 Episodic Other connective tissue disease (3 sources) Pain in right arm; Translations: [PAIN IN RIGHT ARM] Onset: 04-20-2022 Episodic Other connective tissue disease (1 source) Spasm; Translations: [Spasm of muscle] Onset: 01-26-2014 Episodic Other connective tissue disease (19 sources) Pain in limb; Translations: [Pain in unspecified limb] Onset: 08-30-2012 02-02-2023 Episodic Other eye disorders (1 source) Exotropia; Translations: [Unspecified exotropia] Onset: 07-10-2013 Episodic Other gastrointestinal disorders (1 source) Diarrhea; Translations: [Diarrhea, unspecified] Onset: 05-07-2014 Episodic Other injuries and conditions due to external causes (1 source) History of fall; Translations: [History of falling] Resolved: 09-12-2021 Episodic Other lower respiratory disease (19 sources) Chronic cough; Translations: [Chronic cough] Onset: 09-30-2016 02-02-2023 Episodic Other nervous system disorders (20 sources) H/O: migraine; Translations: [Personal history of other diseases of the nervous system and sense organs] Onset: 10-29-2020 02-02-2023 Episodic Other nervous system disorders (19 sources) Disorder of smell; Translations: [Unspecified disturbances of smell and taste] Onset: 02-02-2023 02-02-2023 Episodic Other non-traumatic joint disorders (1 source) Joint effusion of ankle AND/OR foot; Translations: [Effusion of ankle and foot joint] Onset: 12-05-2015 Episodic Other non-traumatic joint disorders (1 source) Pain in wrist; Translations: [Pain in left wrist] Onset: 11-05-2014 Episodic Other nutritional; endocrine; and metabolic disorders (20 sources) Abnormal weight gain; Translations: [Abnormal weight [...] 11-11-2018 Resolved: 10-15-2020 Episodic Other skin disorders (20 sources) Acne; Translations: [Acne, unspecified] Onset: 02-02-2023 02-02-2023 Episodic Other skin disorders (1 source) Folliculitis; Translations: [Follicular disorder, unspecified] Onset: 02-16-2019 Episodic Other skin disorders (19 sources) Cystic acne; Translations: [Acne vulgaris] Onset: [...] ] Resolved: 12-18-2020 Episodic Residual codes; unclassified (2 sources) Other general symptoms and signs; Translations: [Other general symptoms] Onset: 01-05-2024 01-05-2024 Episodic Screening and history of mental health and substance abuse codes (20 sources) Personal history of nicotine dependence; Translations: [Tobacco use and exposure - finding] Onset: 04-21-2022 02-02-2023 Episodic Skin and subcutaneous tissue infections (2 sources) Cellulitis of face; Translations: [Cellulitis of perineum] Onset: 07-01-2015 Episodic Spondylosis; intervertebral disc disorders; other back problems (20 sources) Neck pain; Translations: [Cervicalgia] Onset: 07-01-2015 Episodic Syncope (1 source) Syncope and collapse; Translations: [Syncope and collapse] Onset: 11-01-2017 Episodic Unclassified (1 source) Acute candidiasis of vulva and vagina; Translations: [Acute candidiasis of vulva and vagina] Unclassified (1 source) Identification of preoperative respiratory status; Translations: [Encounter for preprocedural respiratory examination] Onset: 07-10-2013 Viral infection (1 source) COVID-19 Results Test Name Value Interpretation Reference Range Facility RECURRENT VAGINITIS (HTRX)on 11-14-2024 ATOPOBIUM VAGINAE 0 [facility] Healthcare ATOPOBIUM VAGINAE Not detected [facility] BVAB 2,3 (BACTERIAL VAGINOSIS ASSOCIATED BACTERIA 2, 3); MOBILUNCUS SPP 0 [facility] BVAB 2,3 (BACTERIAL VAGINOSIS ASSOCIATED BACTERIA 2, 3); MOBILUNCUS SPP Not detected [facility] Healthcare GOSIA ALBICANS, PARAPSILOSIS, TROPICALIS 25.492 Abnormal [facility] Healthcare GOSIA ALBICANS, PARAPSILOSIS, TROPICALIS Detected Abnormal [facility] Healthcare GOSIA GLABRATA 26.311 Abnormal [facility] Healthcare GOSIA GLABRATA Detected Abnormal [facility] Healthcare GOSIA KRUSEI 0 [facility] GOSIA KRUSEI Not detected [facility] CHLAMYDIA TRACHOMATIS 0 [facility] Healthcare CHLAMYDIA TRACHOMATIS Not detected [facility] ERMB, C; MEFA 25.991 Abnormal [facility] Healthcare ERMB, C; MEFA Detected Abnormal [facility] GARDNERELLA VAGINALIS 22.233 Abnormal [facility] GARDNERELLA VAGINALIS Detected Abnormal [facility] Interpretation and review of laboratory results Abnormal [facility] MEGASPHAERA (TYPES 1, 2) 0 [facility] MEGASPHAERA (TYPES 1, 2) Not detected [facility] MYCOPLASMA GENITALIUM 0 [facility] MYCOPLASMA GENITALIUM Not detected [facility] NEISSERIA GONORRHOEAE 0 [facility] NEISSERIA GONORRHOEAE Not detected [facility] TET B, TET M 26.984 Abnormal [facility] TET B, TET M Detected Abnormal [facility] TRICHOMONAS VAGINALIS 0 [facility] TRICHOMONAS VAGINALIS Not detected [facility] CORTISOL, 30 MIN POST COSYNT ROPIN INJECTIONon 11-09-2024 Cortisol 30 Min post Unsp challenge [Mass/Vol] 24.4 ug/dL Normal [facility] Comment on above: Order Comment: Speci men Type: BLOOD SPECIMEN Ordering Facility: [facility] Address: [address] [place] [address] Performed By: #### C OR30 #### [facility] CLIA [id number] [address] [place] [address] [place] CORTISOL, 60 MIN POST COSYNT ROPIN INJECTION 3 POINTon 11-09-2024 Cortisol 1 Hr post Unsp challenge [Mass/Vol] 28.3 ug/dL Normal [facility] Comment on above: Order Comment: Speci men Type: BLOOD SPECIMEN Ordering Facility: [facility] Address: [address] [place] [address] Performed By: #### C OR30 #### [facility] CLIA [id number] [address] [place] [address] [place] INTERPRETATION (ACTHST) Normal [facility] Comment on above: Order Comment: Speci men Type: BLOOD SPECIMEN Ordering Facility: [facility] Address: [address] [place] [address] Result Comment: Afte r cortrosyn stimulation, a peak cortisol response greater than 12.6 ug/dL may indicate appropriate cortisol secretion. This result should be interpreted within the clinical context and other test results. Verona et al. Clinical Implications for Biochemical Diagnostic Thresholds of Adrenal Sufficiency Using a Highly Specific Cortisol Immunoassay. 2017 Clin. Biochem. 50:475-480. Performed By: #### C OR30 #### [facility] CLIA [id number] [address] [place] [address] STATES OF [facility] CORTISOL, BASALon 11-09-2024 Cortisol baseline [Mass/Vol] 14.4 ug/dL Normal 4.8-19.5 [facility] Comment on above: Order Comment: Speci men Type: BLOOD SPECIMEN Ordering Facility: [facility] Address: [address] [place] [address] Result Comment: Prov ided reference range is from 6-10 AM sample collection time. Cortisol Reference Range: 6-10 AM = 4.8-19.5 ug/dL, 4-8 PM = 2.5-11.9 ug/dL Performed By: #### C ORTBAS #### [facility] CLIA [id number] [address] [place] [address] OF [facility] CNOVon 11-08-2024 CNOV Office Visit (NPRC21 ) -- OSCARDAILY NEWELLICA ([id number]) 1980 F Date Time Provider Department 11/08/24 10:00 AM MAGALIS FINNEY NPRC21 During your visit today, we recorded the following information about you: Pulse Blood pressure Weight Height 68/minute 130/86 72.2 kg 1.702 m Magalis Finney DO 11/08/2024 11:32 AM Signed THE [facility] [place] November 08, 2024 Ana Moore is a 44 year old living with significant other 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 Chronic migraine SUBJECTIVE: Pt was dx with fibromyalgia ~20 yrs ago. Pain is primarily in neck and shoulders. Also suffers from chronic migraine. She always wears long sleeves because wind produces tingling [...] She is less interested in starting new medications Spine Red Flag Ana Moore has no red flag symptoms. Anesthesia: no Schizophrenia: no : 2 CHF: No Uncontrolled HTN: No Recent RI: No Arrythmias: No Afib: No Hyperthyroid: Hypothyroid Aortic Stenosis: No Liver Failure: no Increased ICP: no Average pain over the last 7 days: 6-7/10; good week Previous pain treatments: physical therapy, aquatherapy, medications, TENS, herbal medications, massage, chiropractic manipulation, injections Functional Limitations: The patient's work is unimpaired. Time spent reclining is 7 hours/day (includes time in bed, recliner, sofa, ottoman, etc.). Wellness: How would you describe your diet: varied, home cooking. Less appetite How many days a week do you exercise: everyday- walk, running after 3 old How many hours do you sleep a night: 6-7 hours Emotional Symptoms: include depression The patient has loss of sleep The patient denies suicidal ideation. 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 and use marijuana. Edibles work for pain (only for sleep). Family History: Reviewed in the EMR ROS was positive for: Fatigue All of the other systems reviewed were negative. OBJECTIVE: PHYSICAL EXAM: GENERAL APPEARANCE: Well appearing, well-hydrated, well nourished and alert SKIN: Head, neck, trunk, and extremities dry, intact and without lesions NECK: negative findings: no asymmetry or scars LUNGS: even and non-labored breathing, normal chest excursion NEURO/PSYCH: cranial nerves 2-12 intact, speech normal, mental status intact ASSESSMENT: Fibromyalgia PTSD MDD Chronic Pain Syndrome PLAN: Further evaluation: Rhuem re: RA; Headache re: Migraines Nutrition: Y Therapies: Y Sleep: Y Worklessness: N Medications: Continue current Interventions: No Infusions: Y 9. Pain Psychology: Y Review, Ask, Review: yes Follow-up: silvano Murry MD Attending Note I evaluated the patient and personally participated in the kate components. I agree with the fellow/resident's findings and plan as documented and have discussed the case and management of the patient's care with the resident. Magalis Finney, I spent a total of 45 minutes on the date of the service which included preparing to see the patient, [id number] patient care, completing clinical documentation, obtaining and/or reviewing separately obtained history, performing a medically appropriate examination, counseling and educating the patient/family/caregiver, and ordering medications, tests, or procedures. Important Patient Information: 1. To schedule Pain Recovery appointments or post-injection office visits, please call: [phone] (more content not included)... Normal [facility] Jemma 10-28-2024 [facility] Tele[facility] ([facility]) -- ANA MOORE ([id number]) 1980 F Date Time Provider Department 10/28/24 RONNY MARTINEZ [facility] During your visit today, we recorded the following information about you: Ronny Martinez MD 10/28/2024 6:11 PM Signed Please schedule ACTH stim test. Patient is close to [facility]. Can we please see if this can be done in [place]. She will need an apt with nurse for Cortosyn injection as well as lab apts for cortisol prior to injection, 30 and 60 minutes after the injection. Please let me know when patient is scheduled. Thanks, DS. Sowmya Pugh 10/30/2024 10:09 AM Signed Yes we can do this for patient here in [place]. I tried to call patient but her voicemail is full. I will try her again. Sowmya Pugh 10/31/2024 11:38 AM Signed Ana is scheduled for her ACTH test on 11/09 at 10am. Allergies As of Date: 10/28/2024 Noted Allergy Reaction [id number] AFF 11/03/2012 16 - Unknown CYCLOBENZAPRINE 11/03/2012 16 - Unknown DIPHENHYDRAMINE 12/25/2012 14 - Other: See Comments Comments: irritable irritable FIBRINOLYSIN 12/25/2012 16 - Unknown IODINATED CONTRAST MEDIA 07/26/2023 16 - Unknown PROGESTERONE 07/14/2014 7 - Swelling SERTRALINE 12/25/2012 16 - Unknown TOPIRAMATE 12/25/2012 16 - Unknown TRAMADOL 11/03/2012 16 - Unknown VARENICLINE 10/21/2020 16 - Unknown Date Reviewed: 07/26/2023 Reviewed by: Ronny Martinez MD - Fully Assessed Prescriptions as of 12/06/2024 - SPIRIVA RESPIMAT 1.25 mcg/actuation inhaler Inhale 2 puffs as instructed once daily. - ZANAFLEX 4 mg tablet Take 4 mg by mouth once daily. - magnesium aspart,citrate,oxide (TRIPLE MAGNESIUM COMPLEX) 400 mg magnesium cap Take 400 mg by mouth once daily. - NURTEC ODT 75 mg disintegrating tablet Take 75 mg by mouth once daily as needed. - fluticasone (FLONASE) 50 mcg/actuation nasal spray Use 2 Sprays in each nostril once daily. - albuterol HFA (PROVENTIL HFA, VENTOLIN HFA) 90 mcg/actuation inhaler Inhale 2 Puffs as instructed every 4 hours as needed. - albuterol (PROVENTIL) 2.5 mg /3 mL (0.083 %) nebulizer solution Inhale 2.5 mg as instructed every 4 hours as needed. - budesonide-formoterol (SYMBICORT) 80-4.5 mcg/actuation inhaler Inhale as instructed every 24 hours. - buPROPion XL (WELLBUTRIN XL) 300 mg 24 hr tablet Take by mouth every 24 hours. - montelukast (SINGULAIR) 10 mg tablet Take 1 tablet by mouth every afternoon. - pregabalin (LYRICA) 150 mg capsule Take 150 mg by mouth two times a day. - levothyroxine (SYNTHROID) 75 mcg tablet Take 1 tablet by mouth every afternoon. - cephALEXin (KEFLEX) 500 mg capsule TAKE 1 CAPSULE (500 MG) BY MOUTH IN THE MORNING AND 1 CAPSULE (500 MG) BEFORE BEDTIME. - oxyCODONE-acetaminophen (PERCOCET) 7.5-325 mg tablet Take 1 tablet by mouth every 12 hours. - VITAMIN PLUS LOW IRON 27 mg iron- 1 mg Take 1 tablet by mouth every morning. - predniSONE (DELTASONE) 20 mg tablet TAKE 3 TABLETS BY MOUTH DAILY FOR 3 DAYS, then TAKE 2 TABLETS DAILY FOR 3 DAYS, then TAKE 1 TABLET DAILY FOR 3 DAYS Problem List As Of Date 10/28/2024 Noted Resolved Hypothyroidism [E03.9] 07/26/2023 Low serum adrenocorticotrophic hormone (ACTH) [*10/28/2024 Encounter Status:Closed by RONNY MARTINEZ on 12/06/24 Normal [facility] HISTORY PHYSICALon HISTORY PHYSICAL HNO ID: [id number] Author: INDU MCKEON LPN Service: ? Author Type: LICENSED NURSE Type: H&P Filed: 10/28/2024 18:07 Note Text: Labs 10/11/2024 Normal [facility] ACTH Plas-mCncon 10-11-2024 Corticotropin (P) [Mass/Vol] 5.0 pg/mL Low 7.2-63.3 [facility] Comment on above: Order Comment: Speci men Type: BLOOD SPECIMEN Ordering Facility: [facility] Address: [address] [place] [address] Result Comment: ACTH Reference Range: 7-10 am: 7.2 - 63.3 pg/mL Performed By: #### C OR30 #### [facility] CLIA [id number] [address] [place] [address] [place] Cortis SerPl-mCncon 10-12-19 25 Cortisol [Mass/Vol] 5.3 ug/dL Normal 4.8-19.5 [facility] Comment on above: Order Comment: Specestela wong Type: BLOOD SPECIMEN Ordering Facility: [facility] Address: [address] [place] [address] Result Comment: Prov ided reference range is from 6-10 AM sample collection time. Cortisol Reference Range: 6-10 AM = 4.8-19.5 ug/dL, 4-8 PM = 2.5-11.9 ug/dL Performed By: #### C OR30 #### [facility] CLIA [id number] [address] [place] [address] [place] THYROID PEROXIDASE ANTIBODYo n 10-11-2024 TPO Ab Qn [IU]/mL Normal <5.6 [facility] Comment on above: Order Comment: Jarrett wong Type: BLOOD SPECIMEN Ordering Facility: [facility] Address: [address] [place] [address] Result Comment: Thyr oid Peroxidase Antibody test is used as an aid in diagnosis of autoimmune thyroid disease. Clinical correlation is required. Performed By: #### M ICRO #### [facility] CLIA [id number] [address] [place] [address] [place] TSH SerPl-aCncon 10-11-2024 TSH Qn 1.140 m[IU]/L Normal 0.270-4.20 0 [facility] Comment on above: Order Comment: Jarrett wong Type: BLOOD SPECIMEN Ordering Facility: [facility] Address: [address] [place] [address] Result Comment: If t he patient is , TSH reference range varies by gestational period: First Trimester (weeks 9-12): 0.180-2.990 mIU/L Second Trimester: 0.110-3.980 mIU/L Third Trimester: 0.480-4.710 mIU/L Willie Gill et al. A Practical Approach for the Verifications and Determination of Site- and Trimester-Specific Reference Intervals for Thyroid Function tests in . Thyroid, 2019:29:3:412-420. Garett Lyle, et al. 2017 Guidelines of the [place] [employer] for the Diagnosis and Management of Thyroid Disease during and the . Thyroid, 2017:27:3:315-389. Performed By: #### C OR30 #### [facility] CLIA [id number] [address] [place] [address] [place] Basophils Auto (Bld) [#/Vol] on 10-10-2024 Basophils (Bld) [#/Vol] Automated basophil count 0.0-0.1 [facility] Basophils/100 WBC Auto (Bld) on 10-10-2024 Basophils/100 WBC (Bld) Automated basophil % 0. 2-2.0 [facility] Eosinophils/100 WBC Auto (Bl d)on 10-10-2024 Eosinophils/100 WBC (Bld) Automated eosinophil % 0.9-7.0 [facility] Erythrocyte distribution wid th Auto (RBC) [Ratio]on 10-10-2024 Erythrocyte distribution width (RBC) [Ratio] Erythrocyte distribution width [Ratio] by Automated count 11.0-15.0 [facility] Hematocrit Auto (Bld) [Volum e fraction]on 10-10-2024 Hematocrit (Bld) [Volume fraction] Hematocrit [Volume Fraction] of Blood by Automated count 36.0-48.0 [facility] Hemoglobin [Mass/volume] in Bloodon 10-10-2024 Hemoglobin (Bld) [Mass/Vol] Hemoglobin [Mass/volume] in Blood 12.0-16.0 [facility] IgE [Units/volume] in Serum or Plasmaon 10-10-2024 IgE Qn IgE [Units/volume] i n Serum or Plasma 6-495 [facility] Comment on above: Performed at: [address] [id number] Director: Ragini Enriquez MD, Phone: [phone] Laboratory - Hematology and Cell countson 10-10-2024 Immature granulocytes/100 WBC (Bld) 0.1 % 0.0-0.5 [facility] Leukocytes [#/volume] correc gem for nucleated erythrocytes in Blood by Automated counon 10-10-2024 WBC corrected for nucl RBC Auto (Bld) [#/Vol] Leukocytes [#/volume] corrected for nucleated erythrocytes in Blood by Automated coun 4.0-11.0 [facility] Lymphocytes Auto (Bld) [#/Vo l]on 10-10-2024 Lymphocytes (Bld) [#/Vol] Lymphocytes [#/volume] in Blood by Automated count High 1.2-3.8 [facility] Lymphocytes/100 WBC Auto (Bl d)on 10-10-2024 Lymphocytes/100 WBC (Bld) Lymphocytes/100 leukocytes in Blood by Automated count 20.5-60.0 [facility] MCH Auto (RBC) [Entitic mass ]on 10-10-2024 MCH (RBC) [Entitic mass] MCH [Entitic mass] by Automated count 26.7-34.0 [facility] MCHC Auto (RBC) [Mass/Vol]on 10-10-2024 MCHC (RBC) [Mass/Vol] MCHC [Mass/volume] by Automated count 29.9-35.2 [facility] MCV Auto (RBC) [Entitic vol] on 10-10-2024 MCV (RBC) [Entitic vol] MCV [Entitic vol ume] by Automated count 81.0-99.0 [facility] Monocytes Auto (Bld) [#/Vol] on 10-10-2024 Monocytes (Bld) [#/Vol] Automated blood monocyte count 0.3-0.8 [facility] Monocytes/100 WBC Auto (Bld) on 10-10-2024 Monocytes/100 WBC (Bld) Automated monocyte % 1. 7-12.0 [facility] Neutrophils Auto (Bld) [#/Vo l]on 10-10-2024 Neutrophils (Bld) [#/Vol] Neutrophils [#/volume] in Blood by Automated count 1.4-6.5 [facility] Neutrophils/100 WBC Auto (Bl d)on 10-10-2024 Neutrophils/100 WBC (Bld) Automated neutrophil % 43.0-75.0 [facility] No Panel Informationon 10-10 Eosinophils # (Auto) 0.1 10 3/uL 0.0-0.7 [facility] Immature Granulocyte # (Auto) 0.01 10 3/uL 0.00-0.03 [facility] Platelet mean volume Auto (B ld) [Entitic vol]on 10-10-2024 Platelet mean volume (Bld) [Entitic vol] Platelet mean volume [Entitic volume] in Blood by Automated count 9.5-13.5 [facility] Platelets Auto (Bld) [#/Vol] on 10-10-2024 Platelets (Bld) [#/Vol] Platelets [#/vol ume] in Blood by Automated count 150-450 [facility] RBC Auto (Bld) [#/Vol]on RBC (Bld) [#/Vol] Erythrocytes [#/volu me] in Blood by Automated count 4.20-5.40 [facility] MAMM DIAGNOSTIC BILATERAL W CADon 09-08-2024 MAMM DIAGNOSTIC BILATERAL W CAD MAMM DIAGNOSTIC BILATERAL W CAD ANA MOORE 1980 [id number], [id number] EXAM: MAMM DIAGNOSTIC BILATERAL W CAD, US [...] PM 2 c MAMM 1 YR Normal [facility] US BREAST LT LIMITEDon 09-08 US BREAST LT LIMITED US BREAST LT LIMITE Lucinda ANA HOLM OSCAR 1980 [id number], [id number] EXAM: MAMM DIAGNOSTIC BILATERAL W CAD, US [...] PM 2 c MAMM 1 YR Normal [facility] HISTORY PHYSICALon HISTORY PHYSICAL HNO ID: [id number] Author: INDU MCKEON LPN Service: ? Author Type: LICENSED NURSE Type: H&P Filed: 08/25/2024 23:36 Note Text: Patient states she was diagnosed shortly after her son was born a few years ago. States she had labs then but wasn't sure if labs were needed for today's appointment. Normal [facility] ALL CBC WITH AUTO DIFFon BASOPHILS ABSOLUTE AUTO 0 N [facility] Basophils/100 WBC (Bld) 0.4 % 0.2 - 2.0 % [facility] Eosinophils/100 WBC (Bld) 4.3 % 0.9 - 7.0 % [facility] Erythrocyte distribution width (RBC) [Ratio] 13.2 % 11.0 - 15.0 % [facility] Hematocrit (Bld) [Volume fraction] 44.1 % 36.0 - 48.0 % [facility] Hemoglobin (Bld) [Mass/Vol] 14.6 g/dL 12.0 - 16.0 g/dL [facility] IMMATURE GRANULOCYTES ABS AUTO 0.01 [facility] Immature granulocytes/100 WBC (Bld) 0.1 % 0.0 - 0.5 % [facility] Interpretation and review of laboratory results Abnormal [facility] LYMPHOCYTES ABSOLUTE AUTO 3.3 [facility] Lymphocytes/100 WBC (Bld) 47.4 % 20.5 - 60.0 % [facility] MCH (RBC) [Entitic mass] 31.4 pg 26.7 - 34.0 pg [facility] MCHC (RBC) [Mass/Vol] 33.1 g/dL 29.9 - 35.2 g/dL [facility] MCV (RBC) [Entitic vol] 94.8 fL 81.0 - 99.0 fL [facility] MONOCYTES ABSOLUTE AUTO 0.7 N [facility] Monocytes/100 WBC (Bld) 10.3 % 1.7 - 12.0 % [facility] NEUTROPHILS ABSOLUTE AUTO 2.6 [facility] Neutrophils/100 WBC (Bld) 37.5 % Low 43.0 - 75.0 % [facility] Platelet mean volume (Bld) [Entitic vol] 10.4 fL 9.5 - 13.5 fL [facility] TBH EO # 0.3 [facility] TBH PLT 266 [facility] RBC 4.65 [facility] WBC 6.9 [facility] Basophils Auto (Bld) [#/Vol] on 05-16-2024 Basophils (Bld) [#/Vol] Automated basophil count 0.0-0.1 [facility] Basophils/100 WBC Auto (Bld) on 05-16-2024 Basophils/100 WBC (Bld) Automated basophil % Low 0. 2-2.0 [facility] Buprenorphine [Presence] in Urineon 05-16-2024 Buprenorphine Ql (U) Buprenorphine [Pres ence] in Urine NEGATIVE [facility] Comment on above: DRUG CLASS TEST [...] WBC (Bld) Automated eosinophil % Low 0.9-7.0 [facility] Erythrocyte distribution wid th Auto (RBC) [Ratio]on 05-16-2024 Erythrocyte distribution width (RBC) [Ratio] Erythrocyte distribution width [Ratio] by Automated count 11.0-15.0 [facility] Hematocrit Auto (Bld) [Volum e fraction]on 05-16-2024 Hematocrit (Bld) [Volume fraction] Hematocrit [Volume Fraction] of Blood by Automated count 36.0-48.0 [facility] Hemoglobin [Mass/volume] in Bloodon 05-16-2024 Hemoglobin (Bld) [Mass/Vol] Hemoglobin [Mass/volume] in Blood 12.0-16.0 [facility] Ayo 05-16-2024 L ------ Specimen: [id number] Received: 05/17/24 Status: JULIAN Hinton Num: [id number] Spec Type: Surgical Subm Dr: Yoandy Valadez Tissues: A Uterus w/ or w/o tubes ovaries except neoplastic or prolap (UTERUS WITH CE Procedures: HE/6, Gross/Micro L5 Age/ Patient Sex Location Account Attending Physician Ana Moore 43/F [facility] [id number] Yoandy Valadez SPEC NUM: [id number] RECD: 05/17/24 STATUS: JULIAN HINTON NUM: [id number] WHIT: 05/16/[address] [facility] [address]: Yoandy Valadez ENTERED: 05/17/[address]: Matthieu Hopper SPEC TYPE: Surgical DEPT: ENEDELIA ADKINS ENTERED BY: [id number] RECV BY: [id number] ORDERED: HE/6, Gross/Micro L5 ORDERED: HE/6, Gross/Micro L5 Pathological Diagnosis Uterus and cervix, [...] to 1.3 cm in diameter. The Specimen: [id number] Received: 05/17/24 Status: JULIAN Hinton Num: [id number] Spec Type: Surgical Subm Dr: Yoandy Valadez Tissues: A Uterus w/ or w/o tubes ovaries except neoplastic or prolap (UTERUS WITH CE Procedures: HE/6, Gross/Micro L5 Patient: Ana Moore [id number] (Continued) Specimen: [id number] Received: 05/17/24 (Continued) Gross Description (Continued) Signed (signature on file) Douglas Deleon MD 05/24/24 0851 Specimen: [id number] Received: 05/17/24 Status: JULIAN Hinton Num: [id number] Spec Type: Surgical Subm Dr: Yoandy Valadez Tissues: A Uterus w/ or w/o tubes ovaries except neoplastic or prolap (UTERUS WITH CE Procedures: WILLIAM/Jocy Ramos/Daryl L5 Patient: Ana Moore [id number] (Continued) Specimen: [id number] Received: 05/17/24 (Continued) Gross Description (Continued) specimen [...] uniform with no hemorrhage or degeneration identified. Stile Ripsaw Operator sections are submitted. Cassettes: A1 Cervix A2 [place] (to include posterior cul-de-sac) A3-A4 Full thickness cross section of anterior endomyometrium (to include intramural nodule) A5-A6 Full thickness cross sections of posterior endomyometrium (6, , [id number] A) Microscopic Description Microscopic examinations are performed supporting the above interpretation CPT Codes 69482 (more content not included)... Normal [facility] Laboratory - Drug toxicology on 05-16-2024 Amphetamines Ql (U) Negative NEGATIVE [facility] Benzodiazepines Ql (U) Negative NEGATIVE [facility] Cocaine Ql (U) Negative NEGATIVE [facility] Opiates Ql (U) Negative NEGATIVE [facility] Phencyclidine Ql (U) Negative NEGATIVE [facility] Laboratory - Hematology and Cell countson 05-16-2024 Immature granulocytes/100 WBC (Bld) 0.4 % 0.0-0.5 [facility] Leukocytes [#/volume] correc gem for nucleated erythrocytes in Blood by Automated counon 05-16-2024 WBC corrected for nucl RBC Auto (Bld) [#/Vol] Leukocytes [#/volume] corrected for nucleated erythrocytes in Blood by Automated coun High 4.0-11.0 [facility] Lymphocytes Auto (Bld) [#/Vo l]on 05-16-2024 Lymphocytes (Bld) [#/Vol] Lymphocytes [#/volume] in Blood by Automated count Low 1.2-3.8 [facility] Lymphocytes/100 WBC Auto (Bl d)on 05-16-2024 Lymphocytes/100 WBC (Bld) Lymphocytes/100 leukocytes in Blood by Automated count Low 20.5-60.0 [facility] MCH Auto (RBC) [Entitic mass ]on 05-16-2024 MCH (RBC) [Entitic mass] MCH [Entitic mass] by Automated count 26.7-34.0 [facility] MCHC Auto (RBC) [Mass/Vol]on 05-16-2024 MCHC (RBC) [Mass/Vol] MCHC [Mass/volume] by Automated count 29.9-35.2 [facility] MCV Auto (RBC) [Entitic vol] on 05-16-2024 MCV (RBC) [Entitic vol] MCV [Entitic vol ume] by Automated count 81.0-99.0 [facility] Methadone [Presence] in Urin e by Screen methodon 05-16-2024 Methadone Screen Ql (U) Methadone [Prese nce] in Urine by Screen method NEGATIVE [facility] Monocytes Auto (Bld) [#/Vol] on 05-16-2024 Monocytes (Bld) [#/Vol] Automated blood monocyte count 0.3-0.8 [facility] Monocytes/100 WBC Auto (Bld) on 05-16-2024 Monocytes/100 WBC (Bld) Automated monocyte % 1. 7-12.0 [facility] Neutrophils Auto (Bld) [#/Vo l]on 05-16-2024 Neutrophils (Bld) [#/Vol] Neutrophils [#/volume] in Blood by Automated count High 1.4-6.5 [facility] Neutrophils/100 WBC Auto (Bl d)on 05-16-2024 Neutrophils/100 WBC (Bld) Automated neutrophil % High 43.0-75.0 [facility] No Panel Informationon 05-16 Eosinophils # (Auto) 0.0 10 3/uL 0.0-0.7 Fir [facility] Immature Granulocyte # (Auto) 0.04 10 3/uL High 0.00-0.03 [facility] Urine Barbiturates Screen Negative NEGATIVE [facility] Urine Marijuana (THC) Screen Positive Abnormal NEGATIVE [facility] Urine Methamphetamines Screen Negative NEGATIVE [facility] Human Chorionic Gonadotropin, Quant <1 mIU/mL [facility] Comment on above: 5-50 0.2-1 [id number] 0 1-2 XADPS791-2,000 2-3 [id number],000 3-4 WEEKS1,000-50,000 4-5 WEEKS10,000-100,000 5-6 WEEKS15,000-200,000 6-8 WEEKS10,000-100,000 2-3 MONTHS Platelet mean volume Auto (B ld) [Entitic vol]on 05-16-2024 Platelet mean volume (Bld) [Entitic vol] Platelet mean volume [Entitic volume] in Blood by Automated count 9.5-13.5 [facility] Platelets Auto (Bld) [#/Vol] on 05-16-2024 Platelets (Bld) [#/Vol] Platelets [#/vol ume] in Blood by Automated count 150-450 [facility] RBC Auto (Bld) [#/Vol]on RBC (Bld) [#/Vol] Erythrocytes [#/volu me] in Blood by Automated count 4.20-5.40 [facility] Urine tricyclic antidepressa nt measurementon 05-16-2024 Tricyclic antidepressants (U) [Mass/Vol] Urine tricyclic antidepressant measurement NEGATIVE [facility] oxyCODONE+oxyMORphone [Prese nce] in Urine by Screen methodon 05-16-2024 oxyCODONE+oxyMORphone Screen Ql (U) oxyCODONE+oxyMORphone [Presence] in Urine by Screen method Abnormal NEGATIVE [facility] ALL BASIC METABOLIC PANELon 05-11-2024 Anion gap [Moles/Vol] 13.3 mmol/L [facility] Calcium [Mass/Vol] 9.4 mg/dL 8.5 - 10. 1 mg/dL [facility] Chloride [Moles/Vol] 107 mmol/L 98 - 10 7 mmol/L [facility] CO2 [Moles/Vol] 27.4 mmol/L 21.0 - 32.0 mmol/L [facility] Creatinine [Mass/Vol] 0.82 mg/dL 0.55 - 1.02 mg/dL [facility] GFR/1.73 sq M.predicted CKD-EPI (S/P/Bld) [Vol rate/Area] >60 >=60 mL/min/1.7 3m 2 [facility] Glucose [Mass/Vol] 86 mg/dL 74 - 106 mg/dL [facility] Potassium [Moles/Vol] 4.7 mmol/L 3.5 - 5.1 mmol/L [facility] Sodium [Moles/Vol] 143 mmol/L 136 - 145 mmol/L [facility] TBH EGFR-NON AF [place] >60 >=60 mL/min/1.7 3m 2 [facility] Urea nitrogen [Mass/Vol] 6 mg/dL Low 7.0 - 18.0 mg/dL [facility] Urea nitrogen/Creatinine [Mass ratio] 7.3 mg/mg [facility] ALL CBC WITH AUTO DIFFon BASOPHILS ABSOLUTE AUTO 0 N [facility] Basophils/100 WBC (Bld) 0.5 % 0.2 - 2.0 % [facility] Eosinophils/100 WBC (Bld) 2.5 % 0.9 - 7.0 % [facility] Erythrocyte distribution width (RBC) [Ratio] 13.1 % 11.0 - 15.0 % [facility] Hematocrit (Bld) [Volume fraction] 41.7 % 36.0 - 48.0 % [facility] Hemoglobin (Bld) [Mass/Vol] 14 g/dL 12.0 - 16.0 g/dL [facility] IMMATURE GRANULOCYTES ABS AUTO 0.01 [facility] Immature granulocytes/100 WBC (Bld) 0.2 % 0.0 - 0.5 % [facility] LYMPHOCYTES ABSOLUTE AUTO 1.3 [facility] Lymphocytes/100 WBC (Bld) 23 % 20.5 - 60.0 % [facility] MCH (RBC) [Entitic mass] 31.7 pg 26.7 - 34.0 pg [facility] MCHC (RBC) [Mass/Vol] 33.6 g/dL 29.9 - 35.2 g/dL [facility] MCV (RBC) [Entitic vol] 94.3 fL 81.0 - 99.0 fL [facility] MONOCYTES ABSOLUTE AUTO 0.5 N [facility] Monocytes/100 WBC (Bld) 9.3 % 1.7 - 12.0 % [facility] NEUTROPHILS ABSOLUTE AUTO 3.6 [facility] Neutrophils/100 WBC (Bld) 64.5 % 43.0 - 75.0 % [facility] Platelet mean volume (Bld) [Entitic vol] 10.1 fL 9.5 - 13.5 fL [facility] TBH EO # 0.1 [facility] TB PLT 259 [facility] TB RBC 4.42 [facility] TB WBC 5.6 [facility] ALL TYPE AND SCREENon 2023 ABO and Rh group Nom (Bld) Blood group A Rh(D) positive [facility] Spec expiration tian ged by [id number] on 05/11/24 Reason: SURGICAL EXTENSION [facility] [place] Activated partial thrombopla stin time (aPTT) in platelet poor plasma by coagulation aon 05-11-2024 aPTT Coag (PPP) [Time] Activated partial thromboplastin time (aPTT) in platelet poor plasma by coagulation a 22.3-36.2 [facility] Basophils Auto (Bld) [#/Vol] on 05-11-2024 Basophils (Bld) [#/Vol] Automated basophil count 0.0-0.1 [facility] Basophils/100 WBC Auto (Bld) on 05-11-2024 Basophils/100 WBC (Bld) Automated basophil % 0. 2-2.0 [facility] APTTon 05-11-2024 aPTT Coag (Bld) [Time] 30.5 s [facility] Eosinophils/100 WBC Auto (Bl d)on 05-11-2024 Eosinophils/100 WBC (Bld) Automated eosinophil % 0.9-7.0 [facility] Erythrocyte distribution wid th Auto (RBC) [Ratio]on 05-11-2024 Erythrocyte distribution width (RBC) [Ratio] Erythrocyte distribution width [Ratio] by Automated count 11.0-15.0 [facility] Estimated glomerular filtrat ion rate (GFR) non- Americanon 05-11-2024 GFR/1.73 sq M.predicted among non-blacks MDRD (S/P/Bld) [Vol rate/Area] Estimated glomerular filtration rate (GFR) non- >=60 mL/min/1.7 3m 2 [facility] Globulin Calc (S) [Mass/Vol] on 05-11-2024 Globulin (S) [Mass/Vol] Serum globulin m easurement by calculation (mass/volume) [facility] Albumin [Mass/Vol] 3.3 g/dL Low 3.4 - 5.0 g/dL [facility] ALBUMIN GLOBULIN RATIO 0.9 [facility] ALP [Catalytic activity/Vol] 54 U/L 46 - 116 U/L [facility] ALT [Catalytic activity/Vol] 9 U/L Low 14 - 59 U/L [facility] AST [Catalytic activity/Vol] 12 U/L Low 15 - 37 U/L [facility] Bilirubin [Mass/Vol] 0.4 mg/dL 0.2 - 1 .0 mg/dL [facility] Bilirubin.indirect [Mass/Vol] 0.1 mg/dL 0.0 - 0.2 mg/dL [facility] Globulin (S) [Mass/Vol] 3.5 g/dL N [facility] Protein [Mass/Vol] 6.8 g/dL 6.4 - 8.2 g/dL [facility] Hematocrit Auto (Bld) [Volum e fraction]on 05-11-2024 Hematocrit (Bld) [Volume fraction] Hematocrit [Volume Fraction] of Blood by Automated count 36.0-48.0 [facility] Hemoglobin [Mass/volume] in Bloodon 05-11-2024 Hemoglobin (Bld) [Mass/Vol] Hemoglobin [Mass/volume] in Blood 12.0-16.0 [facility] INR in Platelet poor plasma by Coagulation assayon 05-11-2024 INR Coag (PPP) [Relative time] INR in Platelet poor plasma by Coagulation assay [facility] Comment on above: DESIRED INR:2.0-3.0 CONDITIONS NOT LISTED BELOW2.5-3.5 FOR PROSTHETIC HEART VALVE REPLACEMENT2.5-3.5 RECURRENT THROMBOSIS Laboratory - Chemistry and C hemistry - challengeon 05-11-2024 Albumin [Mass/Vol] 3.3 g/dL Low 3.4-5.0 [facility] ALP [Catalytic activity/Vol] 54 U/L 46-116 [facility] ALT [Catalytic activity/Vol] 9 U/L Low 14-59 [facility] AST [Catalytic activity/Vol] 12 U/L Low 15-37 [facility] Bilirubin [Mass/Vol] 0.4 mg/dL 0.2-1.0 [facility] Bilirubin.direct [Mass/Vol] 0.1 mg/dL 0.0-0.2 [facility] Calcium [Mass/Vol] 9.4 mg/dL 8.5-10.1 [facility] Chloride [Moles/Vol] 107 mmol/L 98-107 [facility] CO2 [Moles/Vol] 27.4 mmol/L 21.0-32.0 [facility] Creatinine [Mass/Vol] 0.82 mg/dL 0.55-1.02 [facility] GFR/1.73 sq M.predicted MDRD (S/P/Bld) [Vol rate/Area] mL/min/{1.73_m2} >=60 mL/min/1.7 3m 2 [facility] Glucose [Mass/Vol] 86 mg/dL 74-106 [facility] Potassium [Moles/Vol] 4.7 mmol/L 3.5-5.1 [facility] Protein [Mass/Vol] 6.8 g/dL 6.4-8.2 [facility] Sodium [Moles/Vol] 143 mmol/L 136-145 [facility] Urea nitrogen [Mass/Vol] 6.0 mg/dL Low 7.0-18.0 [facility] Urea nitrogen/Creatinine [Mass ratio] 7.3 mg/mg [facility] Laboratory - Hematology and Cell countson 05-11-2024 Immature granulocytes/100 WBC (Bld) 0.2 % 0.0-0.5 [facility] Leukocytes [#/volume] correc gem for nucleated erythrocytes in Blood by Automated counon 05-11-2024 WBC corrected for nucl RBC Auto (Bld) [#/Vol] Leukocytes [#/volume] corrected for nucleated erythrocytes in Blood by Automated coun 4.0-11.0 [facility] Lymphocytes Auto (Bld) [#/Vo l]on 05-11-2024 Lymphocytes (Bld) [#/Vol] Lymphocytes [#/volume] in Blood by Automated count 1.2-3.8 [facility] Lymphocytes/100 WBC Auto (Bl d)on 05-11-2024 Lymphocytes/100 WBC (Bld) Lymphocytes/100 leukocytes in Blood by Automated count 20.5-60.0 [facility] MCH Auto (RBC) [Entitic mass ]on 05-11-2024 MCH (RBC) [Entitic mass] MCH [Entitic mass] by Automated count 26.7-34.0 [facility] MCHC Auto (RBC) [Mass/Vol]on 05-11-2024 MCHC (RBC) [Mass/Vol] MCHC [Mass/volume] by Automated count 29.9-35.2 [facility] MCV Auto (RBC) [Entitic vol] on 05-11-2024 MCV (RBC) [Entitic vol] MCV [Entitic vol ume] by Automated count 81.0-99.0 [facility] Monocytes Auto (Bld) [#/Vol] on 05-11-2024 Monocytes (Bld) [#/Vol] Automated blood monocyte count 0.3-0.8 [facility] Monocytes/100 WBC Auto (Bld) on 05-11-2024 Monocytes/100 WBC (Bld) Automated monocyte % 1. 7-12.0 [facility] Neutrophils Auto (Bld) [#/Vo l]on 05-11-2024 Neutrophils (Bld) [#/Vol] Neutrophils [#/volume] in Blood by Automated count 1.4-6.5 [facility] Neutrophils/100 WBC Auto (Bl d)on 11-14-2024 Neutrophils/100 WBC (Bld) Automated neutrophil % 43.0-75.0 [facility] No Panel Informationon 05-11 Interpretation and review of laboratory results Abnormal [facility] Eosinophils # (Auto) 0.1 10 3/uL 0.0-0.7 [facility] Immature Granulocyte # (Auto) 0.01 10 3/uL 0.00-0.03 [facility] Platelet mean volume Auto (B ld) [Entitic vol]on 05-11-2024 Platelet mean volume (Bld) [Entitic vol] Platelet mean volume [Entitic volume] in Blood by Automated count 9.5-13.5 [facility] Platelets Auto (Bld) [#/Vol] on 05-11-2024 Platelets (Bld) [#/Vol] Platelets [#/vol ume] in Blood by Automated count 150-450 [facility] Prothrombin time (PT)on 04-28 PT Coag (PPP) [Time] Prothrombin time (PT) 9.0- 11.6 [facility] RBC Auto (Bld) [#/Vol]on RBC (Bld) [#/Vol] Erythrocytes [#/volu me] in Blood by Automated count 4.20-5.40 [facility] SRMCOH PROTHROMBIN TIME INR W/O COUMon 05-11-2024 PT Coag (PPP) [Time] 10.8 s [facility] TB INR 1.02 [facility] Comment on above: DESIRED INR: 2.0-3.0 CONDITIONS NOT LISTED BELOW 2.5-3.5 FOR PROSTHETIC HEART VALVE REPLACEMENT 2.5-3.5 RECURRENT THROMBOSIS Serum or plasma albumin/glob ulin mass ratioon 05-11-2024 Albumin/Globulin [Mass ratio] Serum or plasma albumin/globulin mass ratio [facility] Serum or plasma anion gap de terminationon 05-11-2024 Anion gap [Moles/Vol] Serum or plasma an ion gap determination [facility] ALL BASIC METABOLIC PANELon 04-14-2024 Anion gap [Moles/Vol] 12.4 mmol/L [facility] Calcium [Mass/Vol] 8.9 mg/dL 8.5 - 10. 1 mg/dL [facility] Chloride [Moles/Vol] 108 mmol/L High 98 - 10 7 mmol/L [facility] CO2 [Moles/Vol] 25.8 mmol/L 21.0 - 32.0 mmol/L [facility] Creatinine [Mass/Vol] 0.81 mg/dL 0.55 - 1.02 mg/dL [facility] GFR/1.73 sq M.predicted CKD-EPI (S/P/Bld) [Vol rate/Area] >60 >=60 mL/min/1.7 3m 2 [facility] Glucose [Mass/Vol] 97 mg/dL 74 - 106 mg/dL [facility] Potassium [Moles/Vol] 4.2 mmol/L 3.5 - 5.1 mmol/L [facility] Sodium [Moles/Vol] 142 mmol/L 136 - 145 mmol/L [facility] TBH EGFR-NON AF [place] >60 >=60 mL/min/1.7 3m 2 [facility] Urea nitrogen [Mass/Vol] 8 mg/dL 7.0 - 18.0 mg/dL [facility] Urea nitrogen/Creatinine [Mass ratio] 9.9 mg/mg [facility] ALL TYPE AND SCREENon 2023 ABO and Rh group Nom (d) Blood group A Rh(D) positive [facility] Activated partial thrombopla stin time (aPTT) in platelet poor plasma by coagulation aon 04-14-2024 aPTT Coag (PPP) [Time] 28.5 s 22.3-36.2 Fi [facility] aPTT Coag (PPP) [Time] Activated partial thromboplastin time (aPTT) in platelet poor plasma by coagulation a 22.3-36.2 [facility] Basophils Auto (Bld) [#/Vol] on 04-14-2024 Basophils (Bld) [#/Vol] 0.0 10 3/uL 0.0-0.1 [facility] Basophils (Bld) [#/Vol] Automated basophil count 0.0-0.1 [facility] Basophils/100 WBC Auto (Bld) on 04-14-2024 Basophils/100 WBC (Bld) 0.6 % 0.2-2.0 F [facility] Basophils/100 WBC (Bld) Automated basophil % 0. 2-2.0 [facility] Eosinophils/100 WBC Auto (Bl d)on 04-14-2024 Eosinophils/100 WBC (Bld) 3.1 % 0.9-7.0 [facility] Eosinophils/100 WBC (Bld) Automated eosinophil % 0.9-7.0 [facility] Erythrocyte distribution wid th Auto (RBC) [Ratio]on 04-14-2024 Erythrocyte distribution width (RBC) [Ratio] 13.1 % 11.0-15.0 [facility] Erythrocyte distribution width (RBC) [Ratio] Erythrocyte distribution width [Ratio] by Automated count 11.0-15.0 [facility] Estimated glomerular filtrat ion rate (GFR) non- Americanon 04-14-2024 GFR/1.73 sq M.predicted among non-blacks MDRD (S/P/Bld) [Vol rate/Area] mL/min/{1.73_m2} >=60 mL/min/1.7 3m 2 [facility] GFR/1.73 sq M.predicted among non-blacks MDRD (S/P/Bld) [Vol rate/Area] Estimated glomerular filtration rate (GFR) non- >=60 mL/min/1.7 3m 2 [facility] Globulin Calc (S) [Mass/Vol] on 04-14-2024 Globulin (S) [Mass/Vol] 3.1 g/dL F [facility] Globulin (S) [Mass/Vol] Serum globulin m easurement by calculation (mass/volume) [facility] Albumin [Mass/Vol] 3.1 g/dL Low 3.4 - 5.0 g/dL [facility] ALBUMIN GLOBULIN RATIO 1 NO [facility] ALP [Catalytic activity/Vol] 42 U/L Low 46 - 116 U/L [facility] ALT [Catalytic activity/Vol] 11 U/L Low 14 - 59 U/L [facility] AST [Catalytic activity/Vol] 10 U/L Low 15 - 37 U/L [facility] Bilirubin [Mass/Vol] 0.3 mg/dL 0.2 - 1 .0 mg/dL [facility] Bilirubin.indirect [Mass/Vol] 0.1 mg/dL 0.0 - 0.2 mg/dL [facility] Globulin (S) [Mass/Vol] 3.1 g/dL [facility] Protein [Mass/Vol] 6.2 g/dL Low 6.4 - 8.2 g/dL [facility] Hematocrit Auto (Bld) [Volum e fraction]on 04-14-2024 Hematocrit (Bld) [Volume fraction] 39.6 % 36.0-48.0 [facility] Hematocrit (Bld) [Volume fraction] Hematocrit [Volume Fraction] of Blood by Automated count 36.0-48.0 [facility] Hemoglobin [Mass/volume] in Bloodon 04-14-2024 Hemoglobin (Bld) [Mass/Vol] 13.0 g/dL 12.0-16.0 [facility] Hemoglobin (Bld) [Mass/Vol] Hemoglobin [Mass/volume] in Blood 12.0-16.0 [facility] INR in Platelet poor plasma by Coagulation assayon 04-14-2024 INR Coag (PPP) [Relative time] 1.03 {INR} [facility] Comment on above: DESIRED INR:2.0-3.0 CONDITIONS NOT LISTED BELOW2.5-3.5 FOR PROSTHETIC HEART VALVE REPLACEMENT2.5-3.5 RECURRENT THROMBOSIS INR Coag (PPP) [Relative time] INR in Platelet poor plasma by Coagulation assay [facility] Comment on above: DESIRED INR:2.0-3.0 CONDITIONS NOT LISTED BELOW2.5-3.5 FOR PROSTHETIC HEART VALVE REPLACEMENT2.5-3.5 RECURRENT THROMBOSIS Laboratory - Chemistry and C hemistry - challengeon 04-14-2024 Albumin [Mass/Vol] 3.1 g/dL Low 3.4-5.0 [facility] ALP [Catalytic activity/Vol] 42 U/L Low 46-116 [facility] ALT [Catalytic activity/Vol] 11 U/L Low 14-59 [facility] AST [Catalytic activity/Vol] 10 U/L Low 15-37 [facility] Bilirubin [Mass/Vol] 0.3 mg/dL 0.2-1.0 [facility] Bilirubin.direct [Mass/Vol] 0.1 mg/dL 0.0-0.2 [facility] Calcium [Mass/Vol] 8.9 mg/dL 8.5-10.1 [facility] Chloride [Moles/Vol] 108 mmol/L High 98-107 [facility] CO2 [Moles/Vol] 25.8 mmol/L 21.0-32.0 [facility] Creatinine [Mass/Vol] 0.81 mg/dL 0.55-1.02 [facility] GFR/1.73 sq M.predicted MDRD (S/P/Bld) [Vol rate/Area] mL/min/{1.73_m2} >=60 mL/min/1.7 3m 2 [facility] Glucose [Mass/Vol] 97 mg/dL 74-106 [facility] Potassium [Moles/Vol] 4.2 mmol/L 3.5-5.1 [facility] Protein [Mass/Vol] 6.2 g/dL Low 6.4-8.2 [facility] Sodium [Moles/Vol] 142 mmol/L 136-145 [facility] Urea nitrogen [Mass/Vol] 8.0 mg/dL 7.0-18.0 [facility] Urea nitrogen/Creatinine [Mass ratio] 9.9 mg/mg [facility] Laboratory - Hematology and Cell countson 04-14-2024 Immature granulocytes/100 WBC (Bld) 0.0 % 0.0-0.5 [facility] Leukocytes [#/volume] correc gem for nucleated erythrocytes in Blood by Automated counon 04-14-2024 WBC corrected for nucl RBC Auto (Bld) [#/Vol] 7.2 10 3/uL 4.0-11.0 [facility] WBC corrected for nucl RBC Auto (Bld) [#/Vol] Leukocytes [#/volume] corrected for nucleated erythrocytes in Blood by Automated coun .0-11.0 [facility] Lymphocytes Auto (Bld) [#/Vo l]on 04-14-2024 Lymphocytes (Bld) [#/Vol] 2.2 10 3/uL 1.2-3.8 [facility] Lymphocytes (Bld) [#/Vol] Lymphocytes [#/volume] in Blood by Automated count 1.2-3.8 [facility] Lymphocytes/100 WBC Auto (Bl d)on 04-14-2024 Lymphocytes/100 WBC (Bld) 30.4 % 20.5-60.0 [facility] Lymphocytes/100 WBC (Bld) Lymphocytes/100 leukocytes in Blood by Automated count 20.5-60.0 [facility] MCH Auto (RBC) [Entitic mass ]on 04-14-2024 MCH (RBC) [Entitic mass] 31.1 pg 26.7-34.0 [facility] MCH (RBC) [Entitic mass] MCH [Entitic mass] by Automated count 26.7-34.0 [facility] MCHC Auto (RBC) [Mass/Vol]on 04-14-2024 MCHC (RBC) [Mass/Vol] 32.8 g/dL 29.9-35.2 Fir [facility] MCHC (RBC) [Mass/Vol] MCHC [Mass/volume] by Automated count 29.9-35.2 [facility] MCV Auto (RBC) [Entitic vol] on 04-14-2024 MCV (RBC) [Entitic vol] 94.7 fL 81.0-99.0 F [facility] MCV (RBC) [Entitic vol] MCV [Entitic vol ume] by Automated count 81.0-99.0 [facility] Monocytes Auto (Bld) [#/Vol] on 04-14-2024 Monocytes (Bld) [#/Vol] 0.7 10 3/uL 0.3-0.8 [facility] Monocytes (Bld) [#/Vol] Automated blood monocyte count 0.3-0.8 [facility] Monocytes/100 WBC Auto (Bld) on 04-14-2024 Monocytes/100 WBC (Bld) 9.3 % 1.7-12.0 F [facility] Monocytes/100 WBC (Bld) Automated monocyte % 1. 7-12.0 [facility] Neutrophils Auto (Bld) [#/Vo l]on 04-14-2024 Neutrophils (Bld) [#/Vol] 4.1 10 3/uL 1.4-6.5 [facility] Neutrophils (Bld) [#/Vol] Neutrophils [#/volume] in Blood by Automated count 1.4-6.5 [facility] Neutrophils/100 WBC Auto (Bl d)on 04-14-2024 Neutrophils/100 WBC (Bld) 56.6 % 43.0-75.0 [facility] Neutrophils/100 WBC (Bld) Automated neutrophil % 43.0-75.0 [facility] No Panel Informationon 04-14 Interpretation and review of laboratory results Abnormal [facility] Eosinophils # (Auto) 0.2 10 3/uL 0.0-0.7 [facility] Immature Granulocyte # (Auto) 0.00 10 3/uL 0.00-0.03 [facility] Platelet mean volume Auto (B ld) [Entitic vol]on 04-14-2024 Platelet mean volume (Bld) [Entitic vol] 10.5 fL 9.5-13.5 [facility] Platelet mean volume (Bld) [Entitic vol] Platelet mean volume [Entitic volume] in Blood by Automated count 9.5-13.5 [facility] Platelets Auto (Bld) [#/Vol] on 04-14-2024 Platelets (Bld) [#/Vol] 227 10 3/uL 150-450 [facility] Platelets (Bld) [#/Vol] Platelets [#/vol ume] in Blood by Automated count 150-450 [facility] Prothrombin time (PT)on 03-28 PT Coag (PPP) [Time] 10.9 s 9.0-11.6 [facility] PT Coag (PPP) [Time] Prothrombin time (PT) 9.0- 11.6 [facility] RBC Auto (Bld) [#/Vol]on RBC (Bld) [#/Vol] 4.18 10 6/uL Low 4.20-5.40 [facility] RBC (Bld) [#/Vol] Erythrocytes [#/volu me] in Blood by Automated count Low 4.20-5.40 [facility] Serum or plasma albumin/glob ulin mass ratioon 04-14-2024 Albumin/Globulin [Mass ratio] 1.0 {ratio} [facility] Albumin/Globulin [Mass ratio] Serum or plasma albumin/globulin mass ratio [facility] Serum or plasma anion gap de terminationon 04-14-2024 Anion gap [Moles/Vol] 12.4 mmol/L [facility] [Moles/Vol] Serum or plasma an ion gap determination [facility] Basophils Auto (Bld) [#/Vol] on 11-12-2023 Basophils (Bld) [#/Vol] 0.1 10 3/uL 0.0-0.1 [facility] Basophils/100 WBC Auto (Bld) on 11-12-2023 Basophils/100 WBC (Bld) 0.5 % 0.2-2.0 [facility] Eosinophils/100 WBC Auto (Bl d)on 11-12-2023 Eosinophils/100 WBC (Bld) 3.8 % 0.9-7.0 [facility] Erythrocyte distribution wid th Auto (RBC) [Ratio]on 11-12-2023 Erythrocyte distribution width (RBC) [Ratio] 13.1 % 11.0-15.0 [facility] Hematocrit Auto (Bld) [Volum e fraction]on 11-12-2023 Hematocrit (Bld) [Volume fraction] 40.6 % 36.0-48.0 [facility] Hemoglobin [Mass/volume] in Bloodon 11-12-2023 Hemoglobin (Bld) [Mass/Vol] 13.4 g/dL 12.0-16.0 [facility] Laboratory - Hematology and Cell countson 11-12-2023 Immature granulocytes/100 WBC (Bld) 0.1 % 0.0-0.5 [facility] Leukocytes [#/volume] correc gem for nucleated erythrocytes in Blood by Automated counon 11-12-2023 WBC corrected for nucl RBC Auto (Bld) [#/Vol] 9.4 10 3/uL 4.0-11.0 [facility] Lymphocytes Auto (Bld) [#/Vo l]on 11-12-2023 Lymphocytes (Bld) [#/Vol] 4.3 10 3/uL High 1.2-3.8 [facility] Lymphocytes/100 WBC Auto (Bl d)on 11-12-2023 Lymphocytes/100 WBC (Bld) 45.1 % 20.5-60.0 [facility] MCH Auto (RBC) [Entitic mass ]on 11-12-2023 MCH (RBC) [Entitic mass] 31.1 pg 26.7-34.0 [facility] MCHC Auto (RBC) [Mass/Vol]on 11-12-2023 MCHC (RBC) [Mass/Vol] 33.0 g/dL 29.9-35.2 [facility] MCV Auto (RBC) [Entitic vol] on 11-12-2023 MCV (RBC) [Entitic vol] 94.2 fL 81.0-99.0 [facility] Monocytes Auto (Bld) [#/Vol] on 11-12-2023 Monocytes (Bld) [#/Vol] 0.8 10 3/uL 0.3-0.8 [facility] Monocytes/100 WBC Auto (Bld) on 11-12-2023 Monocytes/100 WBC (Bld) 7.9 % 1.7-12.0 [facility] Neutrophils Auto (Bld) [#/Vo l]on 11-12-2023 Neutrophils (Bld) [#/Vol] 4.0 10 3/uL 1.4-6.5 [facility] Neutrophils/100 WBC Auto (Bl d)on 11-12-2023 Neutrophils/100 WBC (Bld) 42.6 % Low 43.0-75.0 [facility] No Panel Informationon 11-11 Eosinophils # (Auto) 0.4 10 3/uL 0.0-0.7 [facility] Human Chorionic Gonadotropin, Quant <1 mIU/mL [facility] Comment on above: 5-50 0.2-1 SISR79-69 0 1-2 YVVVO795-6,000 2-3 BCSVL361-57,000 3-4 WEEKS1,000-50,000 4-5 WEEKS10,000-100,000 5-6 WEEKS15,000-200,000 6-8 WEEKS10,000-100,000 2-3 MONTHS Immature Granulocyte # (Auto) 0.01 10 3/uL 0.00-0.03 [facility] Platelet mean volume Auto (B ld) [Entitic vol]on 11-12-2023 Platelet mean volume (Bld) [Entitic vol] 9.9 fL 9.5-13.5 [facility] Platelets Auto (Bld) [#/Vol] on 11-12-2023 Platelets (Bld) [#/Vol] 275 10 3/uL 150-450 [facility] RBC Auto (Bld) [#/Vol]on RBC (Bld) [#/Vol] 4.31 10 6/uL 4.20-5.40 [facility] Human papilloma virus 16+18+ 31+33+35+39+45+51+52+56+58+59+66+68 DNA [Presence] in Tommy 11-02-2023 HPV 16+18+31+33+35+39+45+51 +52+56+58+59+66+68 DNA Probe+sig amp Ql (Cvx) Negative Negative [facility] Comment on above: This nucleic acid am plification test detects fourteen high-risk HPV types (16,18,31,33,35,39,45,51,52,56,58,59,66,68)without differentiation.Performed at: =G - [facility] [id number] Director: Annia Jiménez MD, Phone: [phone] at: - [facility] [id number] Director: Annia Jiménez MD, Phone: [phone] No Panel Informationon 11-01 HPV High Risk Other Comment Note . [facility] Comment on above: TESTS RESULT FLAG UN ITS REF RANGE LAB -DIAGNOSIS: 02 NEGATIVE FOR INTRAEPITHELIAL LESION OR MALIGNANCY.Specimen adequacy: 02 Satisfactory for evaluation. No endocervical component is identified.Performed by: 02 Mary Nelson, Radio Station Engineer (ASCP). 02Note: Note 02 The Pap smear [...] Low,>-Panic High,A-Abnormal,AA-Critical Abnormal ------Performed at:02 WB [facility] [address] [place] [address] Annia Jiménez MD, Reference Lab Test Patient Age Note . [facility] Comment on above: TESTS RESULT FLAG UN ITS REF RANGE LAB - Clinician Provided Cytology Information Source.............Cervix;Endocervix No. of containers..01 ThinPrep YovannyAge Dee Dee VASQUES Cathie... FLAG LEGEND: L-Low Normal,H-High Normal,LL-Alert Low,HH-Alert High <-Panic Low,>-Panic High,A-Abnormal,AA-Critical Abnormal ------Performed at:01 =G [facility] [place] [address] Annia Jiménez MD, Basophils Auto (Bld) [#/Vol] on 09-28-2023 Basophils (Bld) [#/Vol] 0.1 10 3/uL 0.0-0.1 [facility] Basophils/100 WBC Auto (Bld) on 09-28-2023 Basophils/100 WBC (Bld) 0.8 % 0.2-2.0 [facility] Eosinophils/100 WBC Auto (Bl d)on 09-28-2023 Eosinophils/100 WBC (Bld) 3.4 % 0.9-7.0 [facility] Erythrocyte distribution wid th Auto (RBC) [Ratio]on 09-28-2023 Erythrocyte distribution width (RBC) [Ratio] 13.1 % 11.0-15.0 [facility] Glucose mean value [Mass/vol ume] in Blood Estimated from glycated hemoglobinon 09-28-2023 Average glucose Estimated from glycated hemoglobin (Bld) [Mass/Vol] 91 mg/dL [facility] Hematocrit Auto (Bld) [Volum e fraction]on 09-28-2023 Hematocrit (Bld) [Volume fraction] 41.1 % 36.0-48.0 [facility] Hemoglobin [Mass/volume] in Bloodon 09-28-2023 Hemoglobin (Bld) [Mass/Vol] 13.3 g/dL 12.0-16.0 [facility] Laboratory - Chemistry and C hemistry - challengeon 09-28-2023 Free T4 [Mass/Vol] 0.93 ng/dL 0.76-1.46 [facility] TSH Qn 1.327 m[IU]/L 0.358-3.74 0 [facility] Laboratory - Hematology and Cell countson 09-28-2023 HbA1c (Bld) [Mass fraction] 4.8 % 4.5-6.2 [facility] Comment on above: ADA RECOMMENDED LIMI T 4.0 - 6.0ADA THERAPEUTIC TARGET < 7.0ACTION SUGGESTED> 7.0 Immature granulocytes/100 WBC (Bld) 0.1 % 0.0-0.5 [facility] Leukocytes [#/volume] correc gem for nucleated erythrocytes in Blood by Automated counon 09-28-2023 WBC corrected for nucl RBC Auto (Bld) [#/Vol] 7.1 10 3/uL 4.0-11.0 [facility] Lymphocytes Auto (Bld) [#/Vo l]on 09-28-2023 Lymphocytes (Bld) [#/Vol] 2.8 10 3/uL 1.2-3.8 [facility] Lymphocytes/100 WBC Auto (Bl d)on 09-28-2023 Lymphocytes/100 WBC (Bld) 39.0 % 20.5-60.0 [facility] MCH Auto (RBC) [Entitic mass ]on 09-28-2023 MCH (RBC) [Entitic mass] 30.6 pg 26.7-34.0 [facility] MCHC Auto (RBC) [Mass/Vol]on 09-28-2023 MCHC (RBC) [Mass/Vol] 32.4 g/dL 29.9-35.2 Fir [facility] MCV Auto (RBC) [Entitic vol] on 09-28-2023 MCV (RBC) [Entitic vol] 94.5 fL 81.0-99.0 [facility] Monocytes Auto (Bld) [#/Vol] on 09-28-2023 Monocytes (Bld) [#/Vol] 0.5 10 3/uL 0.3-0.8 [facility] Monocytes/100 WBC Auto (Bld) on 09-28-2023 Monocytes/100 WBC (Bld) 7.3 % 1.7-12.0 [facility] Neutrophils Auto (Bld) [#/Vo l]on 09-28-2023 Neutrophils (Bld) [#/Vol] 3.5 10 3/uL 1.4-6.5 [facility] Neutrophils/100 WBC Auto (Bl d)on 09-28-2023 Neutrophils/100 WBC (Bld) 49.4 % 43.0-75.0 [facility] No Panel Informationon 09-27 Dehydroepiandrosterone (DHEA) 330 ng/dL 31-701 [facility] Comment on above: This test was develo ped and its performance characteristicsdetermined by [facility]. It has not been cleared orapproved by the Food and Drug Administration.Performed at: [address] [id number] Director: Ragini Enriquez MD, Phone: [phone] Dehydroepiandrosterone Sulfate 98.1 ug/dL 57.3-279.2 [facility] Eosinophils # (Auto) 0.2 10 3/uL 0.0-0.7 [facility] Follicle Stimulating Hormone 32.8 mIU/mL . [facility] Comment on above: Adult Female Range F ollicular phase 3.5 - 12.5 Ovulation phase 4.7 - 21.5 Luteal phase 1.7 - 7.7 Postmenopausal 25.8 - 134.8Performed at: [facility] [employer] [id number] Director: Julius Meza PhD, Phone: [phone] Human Chorionic Gonadotropin, Quant <1 mIU/mL [facility] Comment on above: 5-50 0.2-1 QZZO57-27 0 1-2 WQGFK330-7,000 2-3 JTJWT144-67,000 3-4 WEEKS1,000-50,000 4-5 WEEKS10,000-100,000 5-6 WEEKS15,000-200,000 6-8 WEEKS10,000-100,000 2-3 MONTHS Immature Granulocyte # (Auto) 0.01 10 3/uL 0.00-0.03 [facility] Platelet mean volume Auto (B ld) [Entitic vol]on 09-28-2023 Platelet mean volume (Bld) [Entitic vol] 10.0 fL 9.5-13.5 [facility] Platelets Auto (Bld) [#/Vol] on 04-02-2024 Platelets (Bld) [#/Vol] 286 10 3/uL 150-450 [facility] RBC Auto (Bld) [#/Vol]on RBC (Bld) [#/Vol] 4.35 10 6/uL 4.20-5.40 [facility] Serum or plasma lutropin geoff surement (units/volume)on 09-28-2023 Lutropin Qn 19.0 m[IU]/mL . [facility] Comment on above: Adult Female Range F ollicular phase 2.4 - 12.6 Ovulation phase 14.0 - 95.6 Luteal phase 1.0 - 11.4 Postmenopausal 7.7 - 58.5 PAP ACOG PANEL 2: 30 to 65on 11-04-2022 . . Normal [facility] Comment on above: Result Comment: Perf ormed at: WB Performed By: #### [id number] #### [facility] [address] [address] [address] Kleber Deleon Age Gdln ACOG Testing -66 Normal [facility] Comment on above: Performed By: #### [id number] #### [facility] [address] [address] [address] Kleber Deleon DIAGNOSIS: Comment Normal [facility] Comment on above: Result Comment: NEGA TIVE FOR INTRAEPITHELIAL LESION OR MALIGNANCY. Performed at: WB Performed By: #### [id number] #### [facility] [address] [address] [address] Kleber Deleon HPV Aptima Negative Normal Negative [facility] Comment on above: Result Comment: This nucleic acid amplification test detects fourteen high-risk HPV types (16,18,31,33,35,39,45,51,52,56,58,59,66,68) without differentiation. Performed at: =G Performed By: #### [id number] #### [facility] [address] [address] [address] Kleber Deleon HPV Genotype Reflex Comment Normal [facility] Comment on above: Result Comment: Crit eria not met, HPV Genotype not performed. Performed at: WB Performed By: #### [id number] #### [facility] [address] [place] [address] Dr. Kleber Deleon Methodology: Comment [facility] Comment on above: Result Comment: This liquid based ThinPrep(R) pap test was screened with the use of an image guided system. Performed at: WB Performed By: #### [id number] #### [facility] [address] [place] [address] Dr. Kleber Deleon Note: Comment Normal [facility] Comment on above: Result Comment: The Pap smear is a screening test designed to aid in the detection of premalignant and malignant conditions of the uterine cervix. It is not a diagnostic procedure and should not be used as the sole means of detecting cervical cancer. Both false-positive and false-negative reports do occur. . Performed at: WB Performed By: #### [id number] #### [facility] [address] [place] [address] Dr. Kleber Deleon Performed by: Comment Normal [facility] Comment on above: Result Comment: Alyssa Henderson, Radio Station Engineer (ASCP) Performed at: WB Performed By: #### [id number] #### [facility] [address] [place] [address] Dr. Kleber Deleon Specimen adequacy: Comment [facility] Comment on above: Result Comment: Sati sfactory for evaluation. Endocervical and/or squamous metaplastic cells (endocervical component) are present. Performed at: WB Performed By: #### [id number] #### [facility] [address] [place] [address] Dr. Kleber Deleon XR FACIAL MIN 3 VIEWSon 03-29 XR FACIAL MIN 3 VIEWS EXAM: XR FACIAL RI N 3 VIEWS HISTORY: Falls ; fell downstairs, facial pain COMPARISON: None. TECHNIQUE: FINDINGS: No visible fracture of the facial bones. Orbital rims are intact. No fluid levels within the paranasal sinuses. IMPRESSION: 1. No acute bone abnormality. Electronically authenticated by: VISH PORTER Date: 2022-04-20 07:52 Normal [facility] Cult,Genitalon 10-16-2018 Cult,Genital Specimen Description .VAGINA Special Requests NOT REPORTED Culture NORMAL URO-GENITAL DAVI STREPTOCOCCI, BETA HEMOLYTIC GROUP B ISOLATED. NEGATIVE FOR NEISSERIA GONORRHOEAE Report Status FINAL 10/16/2018 [facility] Comment on above: Performed By: #### G EC #### [address] [id number] Sterile Process Coordinator: Bob Whitehead MD [facility] [address] [place] [address] Sterile Process Coordinator: Jorge Luis Nina MD Cytologyon 01-27-2018 Cytology (NOTE) [id number] [facility] [address] [place] [id number] GYNECOLOGIC CYTOLOGY REPORT Patient Name: ANA MOROE MR#: [id number] Specimen #[id number] Source: 1: Cervical material, (ThinPrep vial, Imaging-assisted review) Clinical History Z01.419 Routine trauma coordinator exam without abnormal findings High Risk HPV DNA testing is requested if the diagnosis is ASC-US History of: Cervical lesion destruction LMP: 12/30/17 INTERPRETATION Cervical material, (ThinPrep vial, Imaging-assisted review): Specimen Adequacy: Satisfactory for evaluation. - Endocervical/transformatio n zone component present. Descriptive Diagnosis: Negative for intraepithelial lesion or malignancy. Radio Station Engineer: JEOVANY Gerber(ASCP) Electronically Signed Out /02/16/2018 [facility] Comment on above: Performed By: #### P PPVP #### [address] [id number] Vital Signs Date Time Vital Sign Value Performing Clinician Facility 12-26-2024 11:48-0400 Body height 175.3 cm Deepa GUTIERREZ Work Phone: [facility] 12-26-2024 11:48-0400 Body mass index (BMI) [Ratio] 22.58 kg/m2 Deepa GUTIERREZ Work Phone: [facility] 12-26-2024 11:48-0400 Body weight 69.4 kg Deepa Romp PA Work Phone: [facility] 12-26-2024 11:48-0400 Diastolic blood pressure 81 mm[Hg] Deepaabby Mendietap PA Work Phone: [facility] 12-26-2024 11:48-0400 Heart rate 93 /min Deepa Romp PA Work Phone: [facility] 12-26-2024 11:48-0400 Respiratory rate 18 /min Deepa Anamp PA Work Phone: [facility] 12-26-2024 11:48-0400 Systolic blood pressure 148 mm[Hg] Deepa Mendietap PA Work Phone: [facility] 11-13-2024 09:05-0400 Body mass index (BMI) [Ratio] 23.22 kg/m2 [address] [employer] Work Phone: [facility] 11-13-2024 09:05-0400 Body weight 71.[address] [employer] Work Phone: [facility] 11-13-2024 09:05-0400 Diastolic blood pressure 52 mm[Hg] [address] [employer] Work Phone: [facility] 11-13-2024 09:05-0400 Systolic blood pressure 100 mm[Hg] [address] [employer]EN[employer]ER Work Phone: [facility] 11-09-2024 10:43-0400 Body temperature 98.01 [degF] [facility] Work Phone: [facility] 11-09-2024 10:43-0400 Diastolic blood pressure 79 mm[Hg] [facility] Work Phone: [facility] 11-09-2024 10:43-0400 Heart rate 67 /min [facility] Work Phone: [facility] 11-09-2024 10:43-0400 Respiratory rate 16 /min [facility] Work Phone: [facility] 11-09-2024 10:43-0400 SaO2% (BldA) [Mass fraction] 100 % [facility] Work Phone: [facility] 11-09-2024 10:43-0400 Systolic blood pressure 146 mm[Hg] [facility] Work Phone: [facility] 11-08-2024 10:19-0400 Body height 170.2 cm Magalis Tankha DO Work Phone: [facility] 11-08-2024 10:19-0400 Body mass index (BMI) [Ratio] 24.93 kg/m2 Magalis Tankha DO Work Phone: [facility] 11-08-2024 10:19-0400 Body weight 72.2 kg Magalis Tankha DO Work Phone: [facility] 11-08-2024 10:19-0400 Diastolic blood pressure 86 mm[Hg] Magalis Tankha DO Work Phone: [facility] 11-08-2024 10:19-0400 Heart rate 68 /min Magalis Tankha DO Work Phone: [facility] 11-08-2024 10:19-0400 SaO2% (BldA) [Mass fraction] 99 % Magalis Tankha DO Work Phone: [facility] 11-08-2024 10:19-0400 Systolic blood pressure 130 mm[Hg] Magalis Tankha DO Work Phone: [facility] 10-20-2024 09:58-0400 Body height 175.26 cm Royal Martinez MD Work Phone: [facility] 10-20-2024 09:58-0400 Body mass index (BMI) [Ratio] 22.4 kg/m2 Royal Martinez MD Work Phone: [facility] 10-20-2024 09:58-0400 Body weight 68.94 kg Royal Martinez MD Work Phone: [facility] 10-20-2024 09:58-0400 Diastolic blood pressure 81 mm[Hg] Royal Martinez MD Work Phone: [facility] 10-20-2024 09:58-0400 Heart rate 72 /min Royal Martinez MD Work Phone: [facility] 10-20-2024 09:58-0400 Systolic blood pressure 117 mm[Hg] Royal Martinez MD Work Phone: [facility] 10-19-2024 18:14-0400 Body height 175.26 cm Royal Martinez MD Work Phone: [facility] 10-19-2024 18:14-0400 Body temperature 98.2 [degF] Royal Martinez MD Work Phone: [facility] 10-19-2024 18:14-0400 Body weight 67 kg Royal Martinez MD Work Phone: [facility] 10-19-2024 18:14-0400 Diastolic blood pressure 78 mm[Hg] Royal Martinez MD Work Phone: [facility] 10-19-2024 18:14-0400 Heart rate 75 /min Royal Martinez MD Work Phone: [facility] 10-19-2024 18:14-0400 Respiratory rate 18 /min Royal Martinez MD Work Phone: [facility] 10-19-2024 18:14-0400 SaO2% (BldA) [Mass fraction] 98 % Royal Martinez MD Work Phone: [facility] 10-19-2024 18:14-0400 Systolic blood pressure 145 mm[Hg] Royal Martinez MD Work Phone: [facility] 09-01-2024 09:26-0500 Body height 175.26 cm [facility] 09-01-2024 09:26-0500 Body mass index (BMI) [Ratio] 22.6 kg/m2 [facility] 09-01-2024 09:26-0500 Body weight 69.39 kg [facility] 09-01-2024 09:26-0500 Diastolic blood pressure 70 mm[Hg] [facility] 09-01-2024 09:26-0500 Heart rate 86 /min [facility] 09-01-2024 09:26-0500 SaO2% (BldA) [Mass fraction] 97 % [facility] 09-01-2024 09:26-0500 Systolic blood pressure 106 mm[Hg] [facility] 07-13-2024 10:39-0500 Body height 175.26 cm Yoandy Rory DO Work Phone: [facility] 07-13-2024 10:39-0500 Body mass index (BMI) [Ratio] 22.7 kg/m2 Yoandy Rory DO Work Phone: [facility] 07-13-2024 10:39-0500 Body weight 69.85 kg Yoandy Rory DO Work Phone: [facility] 07-13-2024 10:39-0500 Diastolic blood pressure 82 mm[Hg] Yoandy Rory DO Work Phone: [facility] 07-13-2024 10:39-0500 Heart rate 90 /min Yoandy Rory DO Work Phone: [facility] 07-13-2024 10:39-0500 Systolic blood pressure 130 mm[Hg] Yoandy Rory DO Work Phone: [facility] 07-06-2024 09:17-0500 Body mass index (BMI) [Ratio] 22.3 kg/m2 Jennifer GUTIERREZ Work Phone: [facility] 07-06-2024 09:17-0500 Body weight 68.49 kg Jennifer GUTIERREZ Work Phone: [facility] 07-06-2024 09:17-0500 Diastolic blood pressure 72 mm[Hg] Jennifer GUTIERREZ Work Phone: [facility] 07-06-2024 09:17-0500 Systolic blood pressure 118 mm[Hg] Jennifer GUTIERREZ Work Phone: [facility] 06-14-2024 09:15-0500 Body height 175.26 cm Yoandy Rory DO Work Phone: [facility] 06-14-2024 09:15-0500 Body mass index (BMI) [Ratio] 23.1 kg/m2 Yoandy Rory DO Work Phone: [facility] 06-14-2024 09:15-0500 Body temperature 98.3 [degF] Yoandy Rory DO Work Phone: [facility] 06-14-2024 09:15-0500 Body weight 71.21 kg Yoandy Rory DO Work Phone: [facility] 06-14-2024 09:15-0500 Diastolic blood pressure 85 mm[Hg] Yoandy Rory DO Work Phone: [facility] 06-14-2024 09:15-0500 Heart rate 73 /min Yoandy Rory DO Work Phone: [facility] 06-14-2024 09:15-0500 Systolic blood pressure 116 mm[Hg] Yoandy Rory DO Work Phone: [facility] 05-23-2024 14:44-0500 Body mass index (BMI) [Ratio] 24.48 kg/m2 Jennifer GUTIERREZ Work Phone: [facility] 05-23-2024 14:44-0500 Body weight 75.18 kg Jennifer GUTIERREZ Work Phone: [facility] 04-14-2024 13:05-0400 Body height 175.26 cm [facility] 04-14-2024 13:05-0400 Body mass index (BMI) [Ratio] 25.7 kg/m2 [facility] 04-14-2024 13:05-0400 Body weight 79 kg [facility] 04-14-2024 13:05-0400 Diastolic blood pressure 84 mm[Hg] [facility] 04-14-2024 13:05-0400 Heart rate 70 /min [facility] 04-14-2024 13:05-0400 SaO2% (BldA) [Mass fraction] 98 % [facility] 04-14-2024 13:05-0400 Systolic blood pressure 120 mm[Hg] [facility] 03-22-2024 13:15-0400 Body mass index (BMI) [Ratio] 24.48 kg/m2 Yoandy Rory DO Work Phone: [facility] 03-22-2024 13:15-0400 Body weight 75.21 kg Yoandy Rory DO Work Phone: [facility] 03-22-2024 13:15-0400 Diastolic blood pressure 70 mm[Hg] Yoandy Rory DO Work Phone: [facility] 03-22-2024 13:15-0400 Systolic blood pressure 114 mm[Hg] Yoandy Rory DO Work Phone: [facility] 01-17-2024 15:18-0400 Body height 175.26 cm [facility] 01-17-2024 15:18-0400 Body mass index (BMI) [Ratio] 25.7 kg/m2 [facility] 01-17-2024 15:18-0400 Body weight 78.92 kg [facility] 01-17-2024 15:18-0400 Diastolic blood pressure 81 mm[Hg] [facility] 01-17-2024 15:18-0400 Heart rate 78 /min [facility] 01-17-2024 15:18-0400 Systolic blood pressure 127 mm[Hg] [facility] 01-05-2024 11:02-0400 Body height 177.8 cm Deepa GUTIERREZ Work Phone: [facility] 01-05-2024 11:02-0400 Body mass index (BMI) [Ratio] 24.25 kg/m2 Deepa GUTIERREZ Work Phone: [facility] 01-05-2024 11:02-0400 Body temperature 97.7 [degF] Deepa Mendietap PA Work Phone: [facility] 01-05-2024 11:02-0400 Body weight 76.66 kg Deepa Romp PA Work Phone: [facility] 01-05-2024 11:02-0400 Diastolic blood pressure 79 mm[Hg] Deepa Romp PA Work Phone: [facility] 01-05-2024 11:02-0400 Heart rate 68 /min Deepaabby Mendietap PA Work Phone: [facility] 01-05-2024 11:02-0400 Systolic blood pressure 122 mm[Hg] Deepa Romp PA Work Phone: [facility] 10-26-2023 11:04-0400 Body height 175.26 cm MD Royal Martinez Work Phone: [facility] 10-26-2023 11:04-0400 Body mass index (BMI) [Ratio] 25.8 kg/m2 MD Royal Martinez Work Phone: [facility] 10-26-2023 11:04-0400 Body weight 79.43 kg MD Royal Martinez Work Phone: [facility] 10-26-2023 11:04-0400 Diastolic blood pressure 86 mm[Hg] MD Royal Martinez Work Phone: [facility] 10-26-2023 11:04-0400 Heart rate 73 /min MD Royal Martinez Work Phone: [facility] 10-26-2023 11:04-0400 Systolic blood pressure 121 mm[Hg] MD Royal Martinez Work Phone: [facility] 09-28-2023 13:33-0400 Body height 175.26 cm [facility] 09-28-2023 13:33-0400 Body mass index (BMI) [Ratio] 24.8 kg/m2 [facility] 09-28-2023 13:33-0400 Body weight 76.43 kg [facility] 09-28-2023 13:33-0400 Diastolic blood pressure 91 mm[Hg] [facility] 09-28-2023 13:33-0400 Heart rate 64 /min [facility] 09-28-2023 13:33-0400 Systolic blood pressure 128 mm[Hg] [facility] 06-11-2023 10:15-0500 Body height 175.26 cm Royal Martinez Other [facility] [employer] Other 06-11-2023 10:15-0500 Body mass index (BMI) [Ratio] 25.99 kg/m2 Royal Martinez Other [employer] Other 06-11-2023 10:15-0500 Body weight 79.83 kg Royal Martinez Other [employer] Other 06-11-2023 10:15-0500 Diastolic blood pressure 76 mm[Hg] Royal Martinez Other [employer] Other 06-11-2023 10:15-0500 Systolic blood pressure 125 mm[Hg] Royal Martinez Other [employer] Other 03-11-2023 11:15-0400 Body height 175.26 cm Royal Martinez Other [employer] Other 03-11-2023 11:15-0400 Body mass index (BMI) [Ratio] 26.73 kg/m2 Royal Martinez Other [employer] Other 03-11-2023 11:15-0400 Body weight 82.1 kg Royal Martinez Other [employer] Other 03-11-2023 11:15-0400 Diastolic blood pressure 74 mm[Hg] Royal Martinez Other [employer] Other 03-11-2023 11:15-0400 Respiratory rate 20 /min Royal Martinez Other [employer] Other 03-11-2023 11:15-0400 Systolic blood pressure 118 mm[Hg] Royal Martinez Other [employer] Other 12-02-2022 09:00-0400 Body height 175.26 cm Royal Martinez Other [employer] Other 12-02-2022 09:00-0400 Body mass index (BMI) [Ratio] 26.73 kg/m2 Royal Martinez Other [employer] Other 12-02-2022 09:00-0400 Body weight 82.1 kg Royal Martinez Other [employer] Other 12-02-2022 09:00-0400 Diastolic blood pressure 72 mm[Hg] Royal Martinez Other [employer] Other 12-02-2022 09:00-0400 Systolic blood pressure 112 mm[Hg] Royal Martinez Other [employer] Other 09-02-2022 08:45-0500 Body height 175.26 cm Royal Martinez Other [employer] Other 09-02-2022 08:45-0500 Body mass index (BMI) [Ratio] 27.61 kg/m2 Royal Martinez Other [employer] Other 09-02-2022 08:45-0500 Body weight 84.82 kg Royal Martinez Other [employer] Other 09-02-2022 08:45-0500 Diastolic blood pressure 84 mm[Hg] Royal Michelle Other [employer] Other 09-02-2022 08:45-0500 SaO2% (BldA) [Mass fraction] 99 % Royal Michelle Other [employer] Other 09-02-2022 08:45-0500 Systolic blood pressure 142 mm[Hg] Royal Michelle Other [employer] Other Encounters Encounter Date Encounter Type Care Provider Facility Start: 01-16-2025 End: 01-16-2025 [employer] Yoandy Rory DO Work Phone: [facility] Start: 01-16-2025 End: 01-16-2025 [employer] Yoandy Rory DO Work Phone: [facility] Start: 01-15-2025 End: 01-15-2025 [facility] Ronaldo Chavez Therapist Work Phone: Pain Recovery Comment on above: 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 Start: 12-26-2024 End: 12-26-2024 Office outpatient visit 25 minutes Deepa GUTIERREZ Work Phone: [facility] Comment on above: Mass of upper outer quadrant of left breast (Primary Dx); Mass of upper outer quadrant of right breast; Inversion of left nipple Start: 11-13-2024 End: 11-13-[address] [employer] Work Phone: [facility] Start: 11-13-2024 End: 11-14-[address] [employer] Work Phone: [facility] Start: 11-13-2024 End: 11-14-2024 External Result Encounter Tr Shen NP Work Phone: [facility] External Department Unsolicited Start: 11-13-2024 End: 11-13-2024 ambulatory TR SHEN Not Available Start: 11-13-2024 End: 11-13-2024 Office outpatient visit [address] [employer] Work Phone: [facility] Comment on above: Yeast infection (Samantha sg Dx); Vaginal discharge Start: 11-09-2024 End: 11-09-2024 ambulatory Lab/Port Abhijitlarry Posey Work Phone: Hematology/Oncology Comment on above: 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) Start: 11-08-2024 End: 11-08-2024 ambulatory MAGALIS FINNEY Facility:[facility] Start: 11-08-2024 End: 11-08-2024 Patient encounter procedure Magalisgini Ajgabriel DO Work Phone: Neurology Pain Comment on above: Fibromyalgia (Primar y Dx); Migraine without status migrainosus, not intractable, unspecified migraine type; Pain in joint, multiple sites Start: 10-28-2024 End: 12-06-2024 Telephone encounter Ronny Martinez MD Work Phone: Endocrinology Start: 10-27-2024 End: 10-27-2024 Telemedicine consultation with patient Ronny Martinez MD Work Phone: Endocrinology Start: 10-27-2024 End: 10-27-2024 ambulatory Ronny Martinez MD Work Phone: Endocrinology Comment on above: 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); Hypothyroidism, unspecified type Start: 10-20-2024 End: 10-20-2024 ambulatory Royal Martinez MD Work Phone: [facility] Work Phone: Start: 10-20-2024 End: 10-20-2024 Patient encounter procedure Royal Martinez MD Work Phone: [facility] Work Phone: Start: 10-19-2024 End: 10-19-2024 Emergency department patient visit Royal Martinez MD Work Phone: [place] Work Phone: Start: 10-11-2024 End: 10-11-2024 ambulatory ROYAL MARTINEZ Facility:[facility] Start: 10-10-2024 Non-patient / Non-visit Royal Martinez MD Work Phone: [facility] Work Phone: Start: 09-08-2024 End: 09-08-2024 ambulatory [facility] Start: 09-01-2024 End: 09-01-2024 ambulatory [facility] Work Phone: Start: 09-01-2024 End: 09-01-2024 [facility] Work Phone: Start: 08-18-2024 End: 08-18-2024 Telemedicine consultation with patient Ronny Martinez MD Work Phone: Endocrinology Start: 08-18-2024 End: 08-18-2024 ambulatory Ronny Martinez MD Work Phone: Endocrinology Comment on above: Hypothyroidism, unsp ecified type (Primary Dx) Start: 07-25-2024 End: 07-25-2024 Phys/qhp telephone evaluation 5-10 min Yoandy Valadez DO Work Phone: [facility] Comment on above: Hot flashes Start: 07-13-2024 End: 07-13-2024 ambulatory Yoandy Rory DO Work Phone: [facility] Work Phone: Start: 07-13-2024 End: 07-13-2024 Patient encounter procedure Yoandy Rory DO Work Phone: [facility] Work Phone: Start: 07-06-2024 End: 07-06-2024 Bamboo flowsheet Jennifer Frye PA Work Phone: [facility] Start: 07-06-2024 End: 07-06-2024 Bamboo flowsheet Jennifer Frye PA Work Phone: [facility] Start: 07-06-2024 End: 07-06-2024 ambulatory JENNIFER FRYE Not Available Start: 07-06-2024 End: 07-06-2024 Postop follow up visit related to original px Jennifer Frye PA Work Phone: [facility] Comment on above: Postoperative visit; S/P hysterectomy Start: 06-19-2024 End: 08-21-2024 Telephone encounter Yoandy Rory DO Work Phone: [facility] Start: 06-14-2024 End: 06-14-2024 Patient encounter procedure Yoandy Rory DO Work Phone: [facility] Work Phone: Start: 05-23-2024 End: 05-23-2024 Postop follow up visit related to original px Jennifer Frye PA Work Phone: [facility] Comment on above: S/P hysterectomy Start: 05-23-2024 End: 05-23-2024 ambulatory JENNIFER ANJEL Not Available Start: 05-23-2024 End: 05-23-2024 Bamboo flowsheet Jennifer Frye PA Work Phone: [facility] Start: 05-23-2024 End: 05-23-2024 Bamboo flowsheet Jennifer Okreek PA Work Phone: [facility] Start: 05-18-2024 End: 05-18-2024 ambulatory Yoandy Rory DO Work Phone: [facility] Work Phone: Start: 05-18-2024 End: 05-18-2024 Patient encounter procedure Yoandy Rory DO Work Phone: [facility] Work Phone: Start: 05-16-2024 End: 05-16-2024 Clinisync Result Encounter Yoandy Rory DO Work Phone: [facility] External Department Unsolicited Start: 05-16-2024 End: 05-16-2024 Clinisync Result Encounter Yoandy Rory DO Work Phone: [facility] External Department Unsolicited Start: 05-16-2024 End: 05-16-2024 ambulatory Yoandy Rory [facility] Work Phone: Start: 05-16-2024 End: 05-16-2024 Departed Referred Yoandy Rory DO Work Phone: [facility] Start: 05-16-2024 Non-patient / Non-visit Yoandy Rory DO Work Phone: [facility] Work Phone: Start: 05-11-2024 End: 05-11-2024 Clinisync Result Encounter Yoandy Rory DO Work Phone: [facility] External Department Unsolicited Start: 05-11-2024 End: 05-11-2024 Clinisync Result Encounter Yoandy Rory DO Work Phone: [facility] External Department Unsolicited Start: 05-11-2024 Non-patient / Non-visit Yoandy Rory DO Work Phone: [facility] Work Phone: Start: 04-14-2024 End: 04-14-2024 Clinisync Result Encounter Yoandy Rory DO Work Phone: [facility] External Department Unsolicited Start: 04-14-2024 End: 04-14-2024 Clinisync Result Encounter Yoandy Rory DO Work Phone: [facility] External Department Unsolicited Start: 04-14-2024 End: 04-14-2024 ambulatory [facility] Work Phone: Start: 04-14-2024 End: 04-14-2024 Patient encounter procedure [facility] ysician [facility] Work Phone: Start: 04-14-2024 Non-patient / Non-visit [facility] Work Phone: Start: 03-22-2024 End: 03-22-2024 Bamboo flowsheet Yoandy Rory DO Work Phone: [facility] Start: 03-22-2024 End: 03-22-2024 Bamboo flowsheet Yoandy Rory DO Work Phone: [facility] Start: 03-22-2024 End: 03-22-2024 Office outpatient visit 15 minutes Yoandy Rory DO Work Phone: [facility] Comment on above: Preop examination; Menorrhagia with regular cycle; Pelvic pain in female; Dyspareunia in female; Dysmenorrhea Start: 03-22-2024 End: 03-22-2024 Preprocedural examination done Yoandy Rory DO Work Phone: [facility] Work Phone: Start: 03-22-2024 End: 03-22-2024 ambulatory YOANDY RORY Not Available Start: 01-17-2024 End: 01-17-2024 ambulatory [facility] Work Phone: Start: 01-17-2024 End: 01-17-2024 Patient encounter procedure [facility] Work Phone: Start: 01-12-2024 End: 01-12-2024 ambulatory YOANDY VALADEZ Not Available Start: 01-05-2024 End: 01-05-2024 Office outpatient new 45 minutes Deepa Massiel Ev PA Work Phone: [facility] Comment on above: Nipple discharge (Pr imary Dx); Mass of upper outer quadrant of left breast; Inversion of left nipple; Other general symptoms and signs Start: 01-05-2024 End: 01-05-[address] [facility] Start: 11-12-2023 Non-patient / Non-visit [facility] Work Phone: Start: 11-11-2023 ambulatory ROYAL MARTINEZ [facility] Start: 11-02-2023 Non-patient / Non-visit [facility] Work Phone: Start: 10-26-2023 End: 10-26-2023 ambulatory MD Royal Martinez Work Phone: [facility] Work Phone: Start: 10-26-2023 End: 10-26-2023 Patient encounter procedure MD Royal Martinez Work Phone: [facility] Work Phone: Start: 10-13-2023 End: 10-13-2023 ambulatory MD Royal Martinez Work Phone: [facility] Work Phone: Start: 10-13-2023 End: 10-13-2023 Departed Referred MD Royal Martinez Work Phone: [facility] Start: 09-28-2023 End: 09-28-2023 ambulatory [facility] Work Phone: Start: 09-28-2023 End: 09-28-2023 Patient encounter procedure [facility] Work Phone: Start: 08-26-2023 Non-patient / Non-visit [facility] Work Phone: Start: 08-26-2023 Non-patient / Non-visit [facility] Work Phone: Start: 07-29-2023 End: 07-29-2023 ambulatory Royal Martinez Other [facility] Other Start: 07-29-2023 Telephone encounter [facility] Start: 07-05-2023 Patient encounter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 ultrasound was performed (12/25/2023) which demonstrated no suspicious findings - BIRADS 3. On (08/02/2023) she underwent left diagnostic mammogram which showed asymmetric density in the upper outer quadrant at posterior depth is similar to prior studies - BIRADS 1. She is taking levothyroxine for hypothyroidism. She states her thyroid panel was last drawn (06/2023). Past Medical History Past Medical History: Diagnosis [...] 04/13/2018 Performed by Seun Mattson DO at [facility] ARTHROSCOPY SHOULDER Right 04/13/2018 Performed by Seun Mattson DO at [facility] ARTHROSCOPY SHOULDER WITH ROTATOR CUFF REPAIR Right 12/02/2016 Performed by Seun Mattson DO at [facility] CHOLECYSTECTOMY CYST REMOVAL EYE SURGERY x2 HYSTERECTOMY 04/28/2024 SKIN GRAFT WRIST FUSION Family History Family History Problem Relation Age of Onset Arthritis Father Cancer Father Cancer Paternal Grandfather Endometrial cancer Neg Hx Ovarian cancer Neg Hx Breast cancer Neg Hx Current Medications Current Outpatient Medications: albuterol (PROVENTIL HFA;VENTOLIN HFA) 90 mcg/actuation inhaler, Inhale 2 puffs every 4 (four) hours as needed for wheezing., Disp: , Rfl: albuterol (PROVENTIL,VENTOLIN) 2.5 mg /3 mL (0.083 %) nebulizer solution, Inhale 3 mL (2.5 mg total) by nebulization every 4 (four) hours as needed for wheezing., Disp: , Rfl: budesonide-formoteroL (SYMBICORT) 160-4.5 mcg/actuation inhaler, Inhale 2 puffs in the morning and 2 puffs before bedtime., Disp: , Rfl: buPROPion XL (WELLBUTRIN XL) 150 mg 24 hr tablet, Take 1 tablet (150 mg total) by mouth daily. (Patient taking differently: Take 2 tablets (300 mg total) by mouth in the morning.), Disp: 30 tablet, Rfl: 6 dicyclomine (BENTYL) 20 mg tablet, Take 1 tablet (20 mg total) by mouth every 8 (eight) hours as needed., Disp: , Rfl: fluticasone (FLONASE) 50 mcg/actuation nasal spray, Administer 1 spray into each nostril in the morning., Disp: , Rfl: montelukast (SINGULAIR) 10 mg tablet, Take 1 tablet (10 mg total) by mouth nightly., Disp: , Rfl: oxyCODONE-acetaminophen (PERCOCET) 7.5-325 mg per tablet, Take 1 tablet by mouth every 6 (six) hours as needed for pain. 15/325mg, Disp: , Rfl: pregabalin (LYRICA) 100 mg capsule, Take 1 capsule (100 mg total) by mouth in the morning and 1 capsule (100 mg total) before bedtime., Disp: , Rfl: VITAMIN PLUS LOW IRON 27 mg iron- 1 mg tablet, Take 1 tablet by mouth in the morning., Disp: , Rfl: promethazine (PHENERGAN) 25 mg tablet, Take 1 tablet (25 mg total) by mouth every 8 (eight) hours as needed for nausea or vomiting., Disp: , Rfl: Allergies Allergies Allergen Reactions Ybakptzikn-Uxiijsmyngwjp-Gcba Chantix [Varenicline] Corticosteroids (Glucocorticoids) Cyclobenzaprine Depakote [Divalproex] [...] rarely Social History Tobacco Use Smoking Status Some Days Current packs/day: 0.75 Types: Cigarettes Smokeless Tobacco Never Social History Substance and Sexual Activity Drug Use Yes Frequency: 3.0 times per week Types: Marijuana Comment: percocet Review of Systems Review of Systems Respiratory: Positive for chest tightness. Genitourinary: Positive for frequency. Musculoskeletal: Positive for back pain. Neurological: Positive for headaches. Psychiatric/Behavioral: Positive for sleep disturbance. All other systems reviewed and are negative. Breast: positive for masses, pain; negative for skin changes, nipple discharge Objective: Her height is 175.3 cm (5' 9.02 ) and weight is 69.4 kg (153 lb). Her blood pressure is 148/81 and her pulse is 93. Her respiration is 18. Constitutional: awake, alert, no apparent distress Head: normocephalic, atraumatic. Eyes: conjunctiva normal bilaterally; EOMI. Neck: supple; no lymphadenopathy. Neurologic: oriented to place, person, and situation. Psychiatric: appropriately interactive with provider; normal mood and affect. Examination of the right breast demonstrated a more prominent area of tender, dense, mass like tissue at the 11 oclock, outer 1/3 (area of patient's concern); no concerning skin lesions, nipple lesions or nipple discharge. Examination of the left breast demonstrated a nipple cleft/inversion, a 4 x 2 cm area of prominent dense tissue with tenderness 1 oclock, outer 1/3 (area of patient's concern) - slightly increased since last evaluation; no concerning skin lesions, nipple lesions or nipple discharge. She has no axillary lymphadenopathy. Images: Her images were reviewed. EXAM: MAMM DIAGNOSTIC BILATERAL W CAD, US [...] Cathryn Redding MD on 09/08/2024 1:58 PM ASSESSMENT -Left breast mass -Right breast mass -Left nipple cleft/inversion PLAN Reviewed imaging and clinical exam with patient. The area of concern in her left breast appears to be slightly larger in size c/t last exam. Her left nipple cleft/inversion appears stable. Imaging was negative. Will order diagnostic breast MRI to further evaluate the left breast as well as new mass in right breast. Will request right breast ultrasound as well. Will await imaging results and plan for her to follow up with one of our surgeons after imaging completion for a repeat exam. Encouraged her to contact us sooner with changes in her exam, questions or concerns. Audrey Carreno PA-C [facility] MATT Navarro 12/26/24 [id number] documented in this encounter [facility] 11-13-2024 History of Present illness Narrative Reason for Appointment: Patient ID: Ana Moore is a 44 y.o. female who presents for Vaginal Discharge Patient presents today for Acute Visit. MEDICATIONS Current Outpatient Medications Medication Instructions albuterol 2.5 mg, Nebulization, Every 4 hours PRN buPROPion XL (WELLBUTRIN XL) 300 mg, Oral, Daily, Do not crush, chew, or split. cephalexin (KEFLEX) 500 mg, Oral, 2 times daily cholecalciferol (VITAMIN D-3) 2,000 Units, Oral, Daily [...] (LYRICA) 150 mg, Oral, 2 times daily Rimegepant Sulfate (NURTEC PO) Take by mouth ALLERGIES Allergies Allergen Reactions Acetaminophen Other Reaction(s): Hives Butalbital Other Reaction(s): Hives Gazxwgbygf-Fjkn-Jflc-Cod Other Reaction(s): Hives Caffeine Other Reaction(s): Hives Cyclobenzaprine Other Reaction(s): Hives, Unknown Other Reaction(s): Hives Diphenhydramine Other Reaction(s): Other: See Comments irritable irritable irritable Fibrinolysin Other Reaction(s): Unknown Fioricet [Ofelgdbada-Nade-Ulabtnsk] Iodinated Contrast Media Other Reaction(s): Hives, Unknown [...] Diagnosis Date Noted Opioid dependence in remission ([facility]) 01/10/2023 Abnormal quad screen 10/13/2020 Abnormal uterine bleeding 02/02/2023 Dysmenorrhea 02/02/2023 Abnormal weight gain 02/02/2023 Acne 02/02/2023 Agoraphobia 02/02/2023 Allergic rhinitis 09/30/2016 Asthma during ([facility]) 10/29/2020 Asthma, moderate persistent ([facility]) 09/30/2016 Breast lump 05/31/2020 Chronic back pain 08/01/2020 Chronic cough 09/30/2016 Compulsive tobacco user syndrome 09/30/2016 Cystic acne 02/02/2023 History of migraine during 10/29/2020 History of tobacco use 02/02/2023 Hypothyroidism (CMS/HCC) 02/02/2023 Internal derangement of shoulder, right 02/02/2023 Irregular menstrual cycle 12/02/2015 assisted current use of inhaled steroid 02/02/2023 Low lying placenta, antepartum 10/29/2020 Menorrhagia 02/02/2023 Migraine 02/02/2023 Mild persistent asthma with (acute) exacerbation (CMS/HCC) 02/02/2023 Mild persistent asthma without complication (CMS/HCC) 02/02/2023 Depressive disorder in mother affecting (CMS/HCC) 02/02/2023 Mixed anxiety and depressive disorder 02/02/2023 Posttraumatic stress disorder (CMS/HCC) 02/02/2023 Obesity affecting 10/29/2020 Obesity 02/02/2023 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 Cardiovascular: Negative. Gastrointestinal: Negative. Genitourinary: Positive for vaginal discharge. Musculoskeletal: Negative. Skin: Negative. Neurological: Negative. All other systems reviewed and are negative. Hematological: Negative. Endocrine: Negative. Allergic/Immunologic: Negative. OBJECTIVE Objective: Physical Exam Constitutional: Appearance: Normal appearance. She is well-developed. Genitourinary: Vulva normal. Vaginal cuff intact. Vaginal discharge present. Adnexa exam comments: No adnexal tenderness . Cardiovascular: Rate and Rhythm: Normal rate and regular rhythm. Pulmonary: Effort: Pulmonary effort is normal. Breath sounds: Normal breath sounds. Abdominal: General: Bowel sounds are normal. There is no distension. Palpations: Abdomen is soft. Tenderness: There is no abdominal tenderness. There is no guarding or rebound. Musculoskeletal: General: No swelling. Normal range of motion. Right lower leg: No edema. Left lower leg: No edema. Neurological: Mental Status: She is alert and oriented to person, place, and time. Skin: General: Skin is warm and dry. Psychiatric: Mood and Affect: Mood normal. Behavior: Behavior normal. Vitals and nursing note reviewed. Exam conducted with a social media manager present. Vitals: Estimated body mass index is 23.22 kg/m as calculated from the following: Height as of 01/12/24: 5' 9 . Weight as of this encounter: 157 lb 4 oz. BP: 100/52 No LMP recorded (lmp unknown). Patient has had a hysterectomy. ASSESSMENT & PLAN ICD-10-CM 1. Vaginal discharge N89.8 Patient presents with complaints of vaginal discharge and itching with associated cramping. Denies pelvic pain and has history of hysterectomy, but does state concern for STI and cultures will be sent today. Discharge consistent with Yeast infection and Diflucan sent to pharmacy. Documented by Tr Shen NP on behalf of: Tr Shen NP documented in this encounter [facility] 11-08-2024 Note HNO ID: [id number] Author: MAGALIS FINNEY, DO Service: ? 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 Chronic migraine SUBJECTIVE: Pt was dx with fibromyalgia ~20 yrs ago. Pain is primarily in neck and shoulders. Also suffers from chronic migraine. She always wears long sleeves because wind produces tingling [...] She did not like cymbalta or gabapentin. Lyrica works okay with not as many side [...] She is less interested in starting new medications Spine Red Flag Ana Moore has no red flag symptoms. Anesthesia: no Schizophrenia: no : 2 CHF: No Uncontrolled HTN: No Recent RI: No Arrythmias: No Afib: No Hyperthyroid: Hypothyroid Aortic Stenosis: No Liver Failure: no Increased ICP: no Average pain over the last 7 days: 6-/10; good week Previous pain treatments: physical therapy, aquatherapy, medications, TENS, herbal medications, massage, chiropractic manipulation, injections Functional Limitations: The patient's work is unimpaired. Time spent reclining is 7 hours/day (includes time in bed, recliner, sofa, ottoman, etc.). Wellness: How would you describe your diet: varied, home cooking. Less appetite How many days a week do you exercise: everyday- walk, running after 3 old How many hours do you sleep a night: 6-7 hours Emotional Symptoms: include depression The patient has loss of sleep The patient denies suicidal ideation. 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 and use marijuana. Edibles work for pain (only for sleep). Family History: Reviewed in the EMR ROS was positive for: Fatigue All of the other systems reviewed were negative. OBJECTIVE: PHYSICAL EXAM: GENERAL APPEARANCE: Well appearing, well-hydrated, well nourished and alert SKIN: Head, neck, trunk, and extremities dry, intact and without lesions NECK: negative findings: no asymmetry or scars LUNGS: even and non-labored breathing, normal chest excursion NEURO/PSYCH: cranial nerves 2-12 intact, speech normal, mental status intact ASSESSMENT: Fibromyalgia PTSD MDD Chronic Pain Syndrome PLAN: Further evaluation: Rhuem re: RA; Headache re: Migraines Nutrition: Y Therapies: Y Sleep: Y Worklessness: N Medications: Continue current Interventions: No Infusions: Y 9. Pain Psychology: Y Review, Ask, Review: yes Follow-up: silvano Murry MD Attending Note I evaluated the patient and personally participated in the kate components. I agree with the fellow/resident's findings and plan as documented and have discussed the case and management of the patient's care with the resident. Magalis Finney, I spent a total of 45 minutes on the date of the service which included preparing to see the patient, akcn-or-vfwm patient care, completing clinical documentation, obtaining and/or reviewing separately obtained history, performing a medically appropriate examination, counseling and educating the patient/family/caregiver, and ordering medications, tests, or procedures. Important Patient Information: 1. To schedule Pain Recovery appointments or post-injection office visits, please call: [phone] 2. The nursing staff and medical assistants are an integral part of your pain recovery team and will be handling your phone calls and inquiries. 3. Your study results and treatment plan will be discussed during a follow-up appointment. If you (more content not included)... 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 Chronic migraine SUBJECTIVE: Pt was dx with fibromyalgia ~20 yrs ago. Pain is primarily in neck and shoulders. Also suffers from chronic migraine. She always wears long sleeves because wind produces tingling [...] She did not like cymbalta or gabapentin. Lyrica works okay with not as many side [...] She is less interested in starting new medications Spine Red Flag Ana Moore has no red flag symptoms. Anesthesia: no Schizophrenia: no : 2 CHF: No Uncontrolled HTN: No Recent RI: No Arrythmias: No Afib: No Hyperthyroid: Hypothyroid Aortic Stenosis: No Liver Failure: no Increased ICP: no Average pain over the last 7 days: 6-01/04; good week Previous pain treatments: physical therapy, aquatherapy, medications, TENS, herbal medications, massage, chiropractic manipulation, injections Functional Limitations: The patient's work is unimpaired. Time spent reclining is 7 hours/day (includes time in bed, recliner, sofa, ottoman, etc.). Wellness: How would you describe your diet: varied, home cooking. Less appetite How many days a week do you exercise: everyday- walk, running after 3 old How many hours do you sleep a night: 6-7 hours Emotional Symptoms: include depression The patient has loss of sleep The patient denies suicidal ideation. 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 and use marijuana. Edibles work for pain (only for sleep). Family History: Reviewed in the EMR ROS was positive for: Fatigue All of the other systems reviewed were negative. OBJECTIVE: PHYSICAL EXAM: GENERAL APPEARANCE: Well appearing, well-hydrated, well nourished and alert SKIN: Head, neck, trunk, and extremities dry, intact and without lesions NECK: negative findings: no asymmetry or scars LUNGS: even and non-labored breathing, normal chest excursion NEURO/PSYCH: cranial nerves 2-12 intact, speech normal, mental status intact ASSESSMENT: Fibromyalgia PTSD MDD Chronic Pain Syndrome PLAN: Further evaluation: Rhuem re: RA; Headache re: Migraines Nutrition: Y Therapies: Y Sleep: Y Worklessness: N Medications: Continue current Interventions: No Infusions: Y 9. Pain Psychology: Y Review, Ask, Review: yes Follow-up: silvano Murry MD Attending Note I evaluated the patient and personally participated in the kate components. I agree with the fellow/resident's findings and plan as documented and have discussed the case and management of the patient's care with the resident. Magalis Finney DO I spent a total of 45 minutes on the date of the service which included preparing to see the patient, [id number]-[id number] patient care, completing clinical documentation, obtaining and/or reviewing separately obtained history, performing a medically appropriate examination, counseling and educating the patient/family/caregiver, and ordering medications, tests, or procedures. Important Patient Information: 1. To schedule Pain Recovery appointments or post-injection office visits, please call: [phone] 2. The nursing staff and medical assistants are an integral part of your pain recovery team and will be handling your phone calls and inquiries. 3. Your study results and treatment plan will be discussed during a follow-up appointment. If you do not have a follow-up appointment and wish to discuss any issues directly with me, please call: [phone] to set-up an appointment. 4. Floxxhart is best used for refill requests or yes or no questions. Anything more complicated will likely require a follow-up appointment that you can schedule by [phone]. 5. If you are scheduled for a ketamine infusion, you will be contacted regarding specific scheduling instructions in the future by our department. There is no need to contact our department regarding the scheduling process or your estimated wait; you will be contacted once there is an opening. documented in this encounter [facility] 10-31-2024 Telephone encounter Note Ana is scheduled for her ACTH test on 11/09 at 10am. [facility] 10-31-2024 Miscellaneous Notes Ana is scheduled for her ACTH test on 11/09 at 10am. Yes we can do this for patient here in [place]. I tried to call patient but her voicemail is full. I will try her again. Please schedule ACTH stim test. Patient is close to [facility]. Can we please see if this can be done in [place]. She will need an apt with nurse for Cortosyn injection as well as lab apts for cortisol prior to injection, 30 and 60 minutes after the injection. Please let me know when patient is scheduled. Thanks, DS. documented in this encounter [facility] 10-30-2024 Telephone encounter Note Yes we can do this for patient here in [place]. I tried to call patient but her voicemail is full. I will try her again. [facility] 10-30-2024 Note HNO ID: [id number] Author: ?, ?, ? Service: ? Author Type: ? Type: Progress Notes Filed: 10/30/2024 08:35 Note Text: Patient is scheduled in four months, in person. Would rather keep this in person visit, than schedule in six months [facility] 10-28-2024 Telephone encounter Note Please schedule ACTH stim test. Patient is close to [facility]. Can we please see if this can be done in [place]. She will need an apt with nurse for Cortosyn injection as well as lab apts for cortisol prior to injection, 30 and 60 minutes after the injection. Please let me know when patient is scheduled. Thanks, DS. [facility] 10-27-2024 History and physical note Labs 10/11/2024 [facility] 10-27-2024 History and physical note Labs 10/11/2024 documented in this encounter [facility] 10-27-2024 History of Present illness Narrative Images from the original note were not included. VIRTUAL VISIT PROGRESS NOTE This is a virtual visit using Floxxhart Zoom Video Visit. It required patient-provider interaction for the medical decision making as documented below. I have communicated my name and active licensure. The patient's identity and physical location were verified at the time of this visit. Either the patient or their legal containers sales representative has been informed of the risks and benefits of -- and alternatives to -- treatment through a remote evaluation and consents to proceed with the evaluation remotely. Aan Moore is a 44 year old female [...] Recent TSH is normal. Started Biotin supplement 45513 mcg daily, after recent lab work. We [...] heavy and irregular before surgery. Working with Process Treater, considering low dose E, but she is [...] ROM, no cervical LNs noted Per recent trauma coordinator note care everywhere: LABS: Latest Ref Rng [...] test. Patient is close to [facility] in [place] and would like to get it there. Follow with Process Treater for hormonal concerns. Consider seeing Women's Health. Tentative thyroid f/u 6 months. Some elements copied from my note 08/18/24 which have been updated where appropriate, and all reflect current medical decision making from date of this visit. Ronny Martinez MD documented in this encounter [facility] 10-27-2024 Note HNO ID: [id number] Author: RONNY MARTINEZ MD Service: ? Author Type: Physician Type: Progress Notes Filed: 10/28/2024 18:07 Note Text: VIRTUAL VISIT PROGRESS NOTE This is a virtual visit using Topple Track Zoom Video Visit. It required patient-provider interaction for the medical decision making as documented below. I have communicated my name and active licensure. The patient's identity and physical location were verified at the time of this visit. Either the patient or their legal containers sales representative has been informed of the [...] Recent TSH is normal. Started Biotin supplement 94829 mcg daily, after recent lab work. We [...] heavy and irregular before surgery. Working with Process Treater, considering low dose E, but she is [...] no distress, well- (more content not included)... [facility] 09-01-2024 Evaluation note Diagnosis Onset Date Resolution Anxiety acute September 01 9:17am Asthma exacerbation acute September 01, 2024 9:17am Fibromyalgia acute September 01 025 9:17am Thoracic back pain acute September 01, 2024 9:17am [place] Work Phone: 1(949) 729-253203-03-2025 NoteHNO ID: [id number] Author: ?, ?, ? Service: ? Author Type: ? Type: Progress Notes Filed: 08/28/2024 11:35 Note Text: Pt is scheduled on 03/07/25[facility]02-21-2025 History and physical note* Indu Mckeon LPN - 08/18/2024 10:00 AM EST Patient states she was diagnosed shortly after her son was born a few years ago. States she had labs then but wasn't sure if labs were needed for today's appointment. [facility]02-21-2025 History and physical note* Indu Mckeon LPN - 08/18/2024 10:00 AM EST Patient states she was diagnosed shortly after her son was born a few years ago. States she had labs then but wasn't sure if labs were needed for today's appointment. [facility] History of Present illness Narrative* Ronny Martinez MD - 08/18/2024 10:00 AM EST Images from the original note were not included. VIRTUAL VISIT PROGRESS NOTE This is a virtual visit using Snap Fitnesst Zoom Video Visit. It required patient- provider interaction for the medical decision making as documented below. I have communicated my name and active licensure. The patient's identity and physical location wereverified at the time of this visit. 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 Working with Process Treater, considering low dose E, but she is [...] ROM, no cervical LNs noted Per recent trauma coordinator note care everywhere: LABS: ASSESSMENT/PLAN: 44 yo [...] re CP and other issues. Follow with Process Treater for hormonal concerns. Consider seeing Women's Health. Tentative thyroid f/u 6 months. I spent a total of 45 minutes on the date of the service which included preparing to see the patient, kxkv-gm-kqgz patient care, completing clinical documentation, obtaining and/or reviewing separately obtained history, performing a medically appropriate examination, counseling and educating the pat ient, ordering medications, tests, or procedures and care coordination. Ronny Martinez MD [facility] NoteHNO ID: [id number] Author: RONNY MARTINEZ MD Service: ? Author Type: Physician Type: Progress Notes Filed: 08/25/2024 23:36 Note Text: VIRTUAL VISIT PROGRESS NOTE This is a virtual visit using Floxxhart Zoom Video Visit. It required patient-provider interaction for the medical decision making as documented below. I have communicated my name and active licensure. The patient's identity and physical location were verified at the time of this visit. 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 Working with Process Treater, considering low dose E, but she is [...] ROM, no cervical LNs noted Per recent trauma coordinator note care everywhere: LABS: ASSESSMENT/PLAN: 44 yo female patient presenting for eval and management of hypothyroidism. Patient is currently on Levothyroxine 75 mcg daily. Normal TSH a year ago. s/p Hysterectomy Apr 2024 and lots of sx since. Hard to assess thyroid status clinically and not sure sx are thyroid related but would get TFTs (more content not included)...[facility] 07-25-2024 History of Present illness Narrative* Zoya Rothman LPN - 07/25/2024 8:10 AM EST Reason for Appointment: Patient ID: Ana Moore is a 43 y.o. female who presents for No chief complaint on file. Patient presents today via telephone call for a telehealth appointment. Patients Phone #: [phone] (mobile) Current Medications: has a current medication list which includes the following prescription(s): albuterol, bupropion xl, cephalexin, cholecalciferol, ferrous sulfate, fluticasone, ibuprofen, levothyroxine, magnesium, montelukast, mucus relief, oxycodone-acetaminophen, pregabalin, and vitamins. Medical History: Active Ambulatory Problems Diagnosis Date Noted Opioid dependence in remission ([facility]) 01/10/2023 Abnormal quad screen 10/13/2020 Abnormal uterine bleeding 02/02/2023 Dysmenorrhea 02/02/2023 Abnormal weight gain 02/02/2023 Acne 02/02/2023 Agoraphobia ([facility]) 02/02/2023 Allergic rhinitis 09/30/2016 Asthma during ([facility]) 10/29/2020 Asthma, moderate persistent ([facility]) 09/30/2016 Breast lump 05/31/2020 Chronic back pain 08/01/2020 Chronic cough 09/30/2016 Compulsive tobacco user syndrome 09/30/2016 Cystic acne 02/02/2023 History of migraine during 10/29/2020 History of tobacco use 02/02/2023 Hypothyroidism ([facility]) 02/02/2023 Internal derangement of shoulder, right 02/02/2023 Irregular menstrual cycle 12/02/2015 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 02/02/2023 Low lying placenta, antepartum 10/29/2020 Menorrhagia 02/02/2023 Migraine ([facility]) 02/02/2023 Mild persistent asthma with (acute) exacerbation ([facility]) 02/02/2023 Mild persistent asthma without complication ([facility]) 02/02/2023 Depressive disorder in mother affecting ([facility]) 02/02/2023 Mixed anxiety and depressive disorder 02/02/2023 Posttraumatic stress disorder ([facility]) 02/02/2023 Obesity affecting 10/29/2020 Obesity 02/02/2023 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 Opioid abuse ([facility]) 02/02/2023 Other specified abnormal findings of blood [...] disorder) (CMS/HCC) Smell disorder Well woman exam Family History [...] Other Reaction(s): Hives Butalbital Other Reaction(s): Hives Ztqamprxsv-Gmnf-Faxp-Cod Other Reaction(s): Hives Caffeine Other Reaction(s): Hives Cyclobenzaprine Other Reaction(s): Hives, Unknown Other Reaction(s): Hives Diphenhydramine Other Reaction(s): Other: See Comments irritable irritable irritable Fibrinolysin Other Reaction(s): Unknown Fioricet [[id number]] Iodinated Contrast Media Other Reaction(s): Hives, Unknown [...] patient on the phone. Documented by Zoya Rotmhan LPN on behalf of: Yoandy Valadez DO documented in [facility]Re[facility] [id number] History of Present illness Narrative* MATT Gardiner - 07/06/2024 9:00 AM EST Reason for Appointment: Patient ID: Ana Moore is a 43 y.o. female who presents for Post-op Visit (Pt present today for a 6 week post operative visit. Pt had a robotic hysterectomy on 05/16/2024.) Patient presents today for 6 week [facility] Post Op Follow Up appointment. MEDICATIONS Current [...] Other Reaction(s): Hives Butalbital Other Reaction(s): Hives Tibkzlzqyb-Brkd-Prxt-Cod Other Reaction(s): Hives Caffeine Other Reaction(s): Hives Cyclobenzaprine Other Reaction(s): Hives, Unknown Other Reaction(s): Hives Diphenhydramine Other Reaction(s): Other: See Comments irritable irritable irritable Fibrinolysin Other Reaction(s): Unknown Fioricet [[id number]] Iodinated Contrast Media Other Reaction(s): Hives, Unknown [...] Diagnosis Date Noted Opioid dependence in remission ([facility]) 01/10/2023 Abnormal quad screen 10/13/2020 Abnormal uterine bleeding 02/02/2023 Dysmenorrhea 02/02/2023 Abnormal weight gain 02/02/2023 Acne 02/02/2023 Agoraphobia ([facility]) 02/02/2023 Allergic rhinitis 09/30/2016 Asthma during ([facility]) 10/29/2020 Asthma, moderate persistent ([facility]) 09/30/2016 Breast lump 05/31/2020 Chronic back pain 08/01/2020 Chronic cough 09/30/2016 Compulsive tobacco user syndrome 09/30/2016 Cystic acne 02/02/2023 History of migraine during 10/29/2020 History of tobacco use 02/02/2023 Hypothyroidism ([facility]/HCC) 02/02/2023 Internal derangement of shoulder, right 02/02/2023 Irregular menstrual cycle 12/02/2015 assisted current use of inhaled steroid 02/02/2023 Low lying placenta, antepartum 10/29/2020 Menorrhagia 02/02/2023 Migraine ([facility]/HCC) 02/02/2023 Mild persistent asthma with (acute) exacerbation (CMS/HCC) 02/02/2023 Mild persistent asthma without complication (CMS/HCC) 02/02/2023 Depressive disorder in mother affecting (CMS/HCC) 02/02/2023 Mixed anxiety and depressive disorder 02/02/2023 Posttraumatic stress disorder (CMS/HCC) 02/02/2023 Obesity affecting 10/29/2020 Obesity 02/02/2023 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 Opioid abuse ([facility]) 02/02/2023 Other specified abnormal findings of blood chemistry 02/02/2023 Headache 08/30/2012 Pain in limb 08/30/2012 Pain in thoracic spine 02/02/2023 Tobacco smoking affecting 09/30/2016 Umbilical hernia 02/02/2023 Resolved Ambulatory Problems Diagnosis Date Noted No Resolved Ambulatory Problems Past Medical History: Diagnosis Date Abnormal TSH Abnormal uterine bleeding (AUB) Anxiety Asthma (CMS/HCC) Chronic bilateral thoracic back pain Current tobacco use Depression ([facility]/HCC) Fibromyalgia GERD (gastroesophageal reflux disease) IBS (irritable bowel syndrome) Migraines ([facility]) Nicotine dependence, cigarettes, in remission Obesity (BMI 30-39.9) Pre-op exam PTSD (post-traumatic stress disorder) ([facility]) Smell disorder Well woman exam HISTORY PAST MEDICAL HISTORY SOCIAL HISTORY Past Medical History: Diagnosis Date Abnormal TSH Abnormal uterine bleeding (AUB) Abnormal weight gain Acne Agoraphobia (CMS/HCC) Anxiety Asthma (CMS/HCC) Chronic bilateral thoracic back pain Current tobacco use Cystic acne Depression (CMS/HCC) Dysmenorrhea Fibromyalgia GERD (gastroesophageal reflux disease) Hypothyroidism (CMS/HCC) IBS (irritable bowel syndrome) 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 Exam conducted with a social media manager present. Vitals: Estimated body mass index is [...] behalf of: MATT Gardiner documented in this [facility]12-23-2024 Telephone encounter Note* Telephone Encounter - Gisel [...] worse or paingets any worse or bleeding. [facility] [id number] Miscellaneous Notes* Telephone Encounter - Gisel Sethi [...] any worse or bleeding. documented in this [facility]12-18-2024 Evaluation note* Diagnosis Onset Date Resolution Status Admit Date Fibromyalgia acute May 9:13am Migraine headache acute Decembe r 2023 9:13am Sinusitis, acute maxillary acute June 14, 2024 9:13am Thoracic back pain acute Decemb er 2023 9:13am Fibromyalgia acute June 10:25am Hot flashes due to menopause acute July 13, 2024 10:25am Migraine headache acute July 13, 2024 10:25am Right otitis media acute 2024 10:25am Thoracic back pain acute 2024 10:25am [facility] Work Phone: 1(946) 805-110711-26-2024 History of Present illness Narrative* MATT Gardiner [...] Other Reaction(s): Hives Butalbital Other Reaction(s): Hives Tsdbqiabex-Aruc-Tqnn-Cod Other Reaction(s): Hives Caffeine Other Reaction(s): Hives Cyclobenzaprine Other Reaction(s): Hives, Unknown Other Reaction(s): Hives Diphenhydramine Other Reaction(s): Other: See Comments irritable irritable irritable Fibrinolysin Other Reaction(s): Unknown Fioricet [Ncqgsoefqu-Tlgy-Mwysdsrd] Iodinated Contrast Media Other Reaction(s): Hives, Unknown [...] Diagnosis Date Noted Opioid dependence in remission ([facility]) 01/10/2023 Abnormal quad screen 10/13/2020 Abnormal uterine bleeding 02/02/2023 Dysmenorrhea 02/02/2023 Abnormal weight gain 02/02/2023 Acne 02/02/2023 Agoraphobia ([facility]) 02/02/2023 Allergic rhinitis 09/30/2016 Asthma during ([facility]) 10/29/2020 Asthma, moderate persistent ([facility]) 09/30/2016 Breast lump 05/31/2020 Chronic back pain 08/01/2020 Chronic cough 09/30/2016 Compulsive tobacco user syndrome 09/30/2016 Cystic acne 02/02/2023 History of migraine during 10/29/2020 History of tobacco use 02/02/2023 Hypothyroidism ([facility]) 02/02/2023 Internal derangement of shoulder, right 02/02/2023 Irregular menstrual cycle 12/02/2015 assisted current use of inhaled steroid 02/02/2023 Low lying placenta, antepartum 10/29/2020 Menorrhagia 02/02/2023 Migraine ([facility]) 02/02/2023 Mild persistent asthma with (acute) exacerbation ([facility]) 02/02/2023 Mild persistent asthma without complication ([facility]) 02/02/2023 Depressive disorder in mother affecting ([facility]) 02/02/2023 Mixed anxiety and depressive disorder 02/02/2023 Posttraumatic stress disorder ([facility]/HCC) 02/02/2023 Obesity affecting 10/29/2020 Obesity 02/02/2023 Olfaction [...] disease) Hypothyroidism (CMS/HCC) IBS (irritable bowel syndrome) 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 Menorrhagia Migraines [...] Documented by: MATT Gardiner documented in this encounterRe[facility] [id number] Evaluation note* Diagnosis Onset Date Resolution Status Admit Date Fibromyalgia acute March 1:02pm Migraine headache acute April 14, 2024 1:02pm [facility] Work Phone: 1(223) 960-621310-18-2024 Evaluation note* Diagnosis Onset Date Resolution Status [...] acute June 10:25am Thoracic back pain acute Januar y 2024 10:25am [facility] Work Phone: 1(267) 602-604609-25-2024 History of Present illness Narrative* Kimberley Treviño - 03/22/2024 1:10 PM EDT Reason for Appointment: Patient ID: Ana Moore is a 43 y.o. female who presents for Pre-op Visit Patient presents today for Pre Op appointment. Patient is scheduled to undergo [facility] assisted Laparoscopic Hysterectomy, possible exploratory laparotomy, possible BSO, possible cystoscopy on 04/20/[address] Valadez at [facility]. MEDICATIONS Current Outpatient Medications Medication Instructions albuterol [...] Other Reaction(s): Hives Butalbital Other Reaction(s): Hives Ncbcwybwjx-Ddqo-Iqnl-Cod Other Reaction(s): Hives Caffeine Other Reaction(s): Hives Cyclobenzaprine Other Reaction(s): Hives, Unknown Other Reaction(s): Hives Diphenhydramine Other Reaction(s): Other: See Comments irritable irritable irritable Fibrinolysin Other Reaction(s): Unknown Fioricet [Atftlvkzkt-Odmv-Gaadmhjy] Iodinated Contrast Media Other Reaction(s): Hives, Unknown [...] Diagnosis Date Noted Opioid dependence in remission ([facility]) 01/10/2023 Abnormal quad screen 10/13/2020 Abnormal uterine bleeding 02/02/2023 Dysmenorrhea 02/02/2023 Abnormal weight gain 02/02/2023 Acne 02/02/2023 Agoraphobia ([facility]) 02/02/2023 Allergic rhinitis 09/30/2016 Asthma during ([facility]) 10/29/2020 Asthma, moderate persistent ([facility]) 09/30/2016 Breast lump 05/31/2020 Chronic back pain 08/01/2020 Chronic cough 09/30/2016 Compulsive tobacco user syndrome 09/30/2016 Cystic acne 02/02/2023 History of migraine during 10/29/2020 History of tobacco use 02/02/2023 Hypothyroidism ([facility]) 02/02/2023 Internal derangement of shoulder, right 02/02/2023 Irregular menstrual cycle 12/02/2015 assisted current use of inhaled steroid 02/02/2023 Low lying placenta, antepartum 10/29/2020 Menorrhagia 02/02/2023 Migraine (CMS/HCC) 02/02/2023 Mild persistent asthma with (acute) exacerbation (CMS/HCC) 02/02/2023 Mild persistent asthma without complication (CMS/HCC) 02/02/2023 Depressive disorder in mother affecting (CMS/HCC) 02/02/2023 Mixed anxiety and depressive disorder 02/02/2023 [...] disease) Hypothyroidism (CMS/HCC) IBS (irritable bowel syndrome) 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 Follow Up: Patient is to follow up at 1 & 6 weeks post operative to assess proper healing and recovery from procedure. Documented by Zoya Rothman LPN on behalf of: Yoandy Valadez DO documented in this encounterReynolds [facility] [id number] History of Present illness Narrative* MATT Navarro - 01/05/2024 11:00 AM EDT RE: Ana Mooer : 1980 Chief Complaint: Bilateral nipple discharge [...] genetic testing? No Do you have Ashkenazi Anabaptism ancestry? No Today I reviewed notes from SENIOR STORAGE ADMINISTRATOR dated (11/02/2023), imaging report including bilateral screening [...] 04/13/2018 Performed by Seun Mattson DO at [facility] ARTHROSCOPY SHOULDER Right 04/13/2018 Performed by Seun Mattson DO at [facility] ARTHROSCOPY SHOULDER WITH ROTATOR CUFF REPAIR Right 12/02/2016 Performed by Seun Mattson DO at [facility] CHOLECYSTECTOMY CYST REMOVAL EYE SURGERY x2 [...] Disp: , Rfl: Allergies Allergies Allergen Reactions Qiymfsxtju-Qlzbuezrngpqu-Ypfk Chantix [Varenicline] Corticosteroids (Glucocorticoids) Cyclobenzaprine Depakote [Divalproex] [...] VERY IMPORTANT TO YOUR HEALTH. THE CURRENT [employer] [...] areas of architectural distortion identified. Exam End: 08/02/23 09:56 Specimen Collected: 08/02/23 09:57 Last Resulted: [...] procedures Referring and communicating with other health memory care director (not separately reported) Documenting clinical information in the electronic or other health record MATT Navarro 01/05/24 1246 documented in this encounterGuernsey Memorial HospitalPerfuzia Medical [id number] Evaluation note* Encounter Date Diagnosis Assessment Notes Treatment Notes Treatment Clinical Notes Jul, Left shoulder pain (ICD-10 - M25.512) [facility] Other 01-05-2024 Evaluation note* Encounter Date Diagnosis [...] than 5 days since start of symptoms [facility] Other 01-04-2024 Evaluation note* Encounter Date Diagnosis Assessment Notes Treatment Notes Treatment Clinical Notes Jun, Left shoulder pain (ICD-10 - M25.512) [facility] Other 12-15-2023 Evaluation note* Encounter Date Diagnosis Assessment Notes Treatment Notes Treatment Clinical Notes May, Acquired hypothyroidism (ICD-10 - E03.9) Pt advised referral was sent on 05/27. She is welcome to make her own appt a [facility] as well. Will check labs in meantime. May, Fatigue, unspecified type (ICD-10 - R53.83) Pt agrees to labs. May, Left shoulder pain (ICD-10 - M25.512) Ana agrees to decrease dose to 5/325 w next fill in June. Reviewed OARRS. [facility] Other 12-07-2023 Evaluation note* Encounter Date Diagnosis Assessment Notes Treatment Notes Treatment Clinical Notes May, Left shoulder pain (ICD-10 - M25.512) [facility] Other 11-30-2023 Evaluation note* Encounter Date Diagnosis Assessment Notes Treatment Notes Treatment Clinical Notes Apr, Acquired hypothyroidism (ICD-10 - E03.9) [facility] Other 11-09-2023 Evaluation note* Encounter Date Diagnosis Assessment Notes Treatment Notes Treatment Clinical Notes Apr, Left shoulder pain (ICD-10 - M25.512) [facility] Other 10-12-2023 Evaluation note* Encounter Date Diagnosis Assessment Notes Treatment Notes Treatment Clinical Notes Mar, Left shoulder pain (ICD-10 - M25.512) Mar, Acquired hypothyroidism (ICD-10 - E03.9) [facility] Other 10-05-2023 Evaluation note* Encounter Date Diagnosis Assessment Notes Treatment Notes Treatment Clinical Notes Mar, Left shoulder pain (ICD-10 - M25.512) [facility] Other 09-14-2023 Evaluation note* Encounter Date Diagnosis [...] of breath. . Increase fluids and rest. Cgwk-ffj-kxhhpxf antipyretics as needed. Warning signs and symptoms reviewed with patient today. Patient to go immediately to the ER should she experience any of these. Patient to notify office should her symptoms persist and not improve. Patient verbalizes understanding and agrees to treatment plan. Feb, Left shoulder pain (ICD-10 - M25.512) Chronic problem, take med as prescribed. Reviewed OARRS report. Followup in 3 months. [facility] Other 08-17-2023 Evaluation note* Encounter Date Diagnosis Assessment Notes Treatment Notes Treatment Clinical Notes Jan, Acute thoracic back pain, unspecified back pain laterality (ICD-10 - M54.6) [facility] Other 07-20-2023 Evaluation note* Encounter Date Diagnosis Assessment Notes Treatment Notes Treatment Clinical Notes Dec, Acute thoracic back pain, unspecified back pain laterality (ICD-10 - M54.6) [facility] Other 06-22-2023 Evaluation note* Encounter Date Diagnosis Assessment Notes Treatment Notes Treatment Clinical Notes Nov, Acute thoracic back pain, unspecified back pain laterality (ICD-10 - M54.6) [facility] Other 06-07-2023 Evaluation note* Encounter Date Diagnosis Assessment Notes Treatment Notes Treatment Clinical Notes Nov, Moderate persistent asthma without complication (ICD-10 - J45.40) Nov, Vomiting with nausea, not intractable (ICD-10 - R11.2) Nov, Neck pain (ICD-10 - M54.2) OARRS report processed and reviewed and shows no violations. Pt understands to use only as needed and consider dose reduction at next OV. [facility] Other 06-07-2023 Evaluation note* Encounter Date Diagnosis [...] and consider dose reduction at next OV. [facility] Other 04-27-2023 Evaluation note* Encounter Date Diagnosis Assessment Notes Treatment Notes Treatment Clinical Notes Sep, Acute thoracic back pain, unspecified back pain laterality (ICD-10 - M54.6) [facility] Other 03-08-2023 Evaluation note* Encounter Date Diagnosis [...] Will continue to decrease with next rx. [facility] Other 03-08-2023 Evaluation note* Encounter Date Diagnosis [...] as listed above for the breast area. [facility] [employer] Other [id number] NotePROCEDURE: XR FOREARM RT 2V HISTORY: Falls ; fell down stairs, right forearm pain COMPARISON: None. FINDINGS: BONES:Transverse fracture through mid ulnar diaphysis without displacement. Unremarkable radius. SOFT TISSUES:No visible soft tissue swelling. EFFUSION:None visible. OTHER: Negative. IMPRESSION: 1. Acute, nondisplaced mid ulnar diaphyseal fracture. Electronically authenticated by: VISH PORTER Date: 2022-04-20 07:54[facility] noteNo InformationNortConemaugh Memorial Medical Center [employer] Other Evaluation note* Diagnosis Onset Date Resolution Status Thoracic back pain [facility] Work Phone: Evaluation note* Diagnosis Onset Date Resolution Status Thoracic back pain acute Acute lumbar back pain acute Thoracic back pain [facility] Work Phone: Evaluation note* Diagnosis Onset Date Resolution Status Acute lumbar back pain acute Thoracic back pain [facility] Work Phone: Evaluation note* Diagnosis Onset Date Resolution Status Fibromyalgia acute Thoracic back pain [facility] Work Phone: Evaluation note* Diagnosis S/P hysterectomy Acquired absence of both cervix and uterus documented in this encounter [facility] Healthcare[facility]* Diagnosis Preop examination Unspecified pre-operative examination Menorrhagia with regular cycle Pelvic pain in female Unspecified symptom associated with female genital organs Dyspareunia in female Dysmenorrhea documented in this encounter [facility] HealthcareEvaluation note* Diagnosis Postoperative visit S/P hysterectomy Acquired absence of both cervix and uterus documented in this encounter [facility] HealthcareEvaluation note* Diagnosis Hot flashes documented in this encounter [facility]* Diagnosis Nipple discharge- Primary Other sign and symptom in breast Mass of upper outer quadrant of left breast Inversion of left nipple Other general symptoms and signs documented [facility]* Diagnosis Hypothyroidism, unspecified type- Primary documented in this [facility]* Diagnosis Low serum adrenocorticotrophic hormone (ACTH)- Primary Hypothyroidism, unspecified type documented in this encounter [facility] note* Diagnosis Fibromyalgia- Primary Mylagia and myositis, unspecified Migraine without status migrainosus, not intractable, unspecified migraine type Pain in joint, multiple sites documented in this encounter [facility] note* Diagnosis Low serum adrenocorticotrophic hormone (ACTH)- Primary documented [facility] this encounter [facility]* Diagnosis Yeast infection- Primary Vaginal discharge Leukorrhea, not specified as infective documented in this encounter [facility] HospitalEvaludel[facility] note* Diagnosis Mass of upper outer quadrant of left breast- Primary Mass of upper outer quadrant of right breast Inversion of left nipple documented in this [facility]* Diagnosis Mass of upper outer quadrant of right breast- Primary Mass of upper outer quadrant of left breast Inversion of left nipple documented in this [facility]* Diagnosis Pain disorder associated with psychological factors and medical condition- Primary Other pain disorders related to psychological factors Fibromyalgia Mylagia and myositis, unspecified Migraine without status migrainosus, not intractable, unspecified migraine type Pain in joint, multiple sites documented in this encounter [facility] general Narrative - Reported* Type Description Date Medical History Asthma Medical History Depression Medical History GERD Medical History Fibromyalgia Medical History Anxiety Surgical History Left wrist fracture repair 2013 Surgical History Gall Bladder 2001 Surgical History Skin Graft Hospitalization History See Hospitalization History 1 Jun 2014 [facility] Other Hospital Discharge instructionsAmbulatory Orders* Referral to Rheumatology Time Frame: 07/13/24, Location: None [facility] Work Phone: InstructionsNot on filedocumented in this encounter [facility]Not on filedocumented in this encounter [facility]ructionsNot on filedocumented in this encounter [facility]ructionsNot on filedocumented in this encounter [facility]InstructionsNot on filedocumented in this encounter [facility] Summary Purpose Family History Relationship Condition Age [...] 1 Acquired hypothyroid ism (E03.9) Referral Organization [facility] Garry fried Referring Provider First Name Royal Referring Provider Last Name Michelle Referring Provider Specialty Family [facility] cine Referred Organization [facility] [place] [place], [place],[address] Referred Provider Specialty Endocrinolog y Referral Priority [...] 13, 2024 10:25am breathing difficulty, fatigue, cough [facility] 2024 9:17am Reason for Visit Admit Date [...] Complaint Admit Date breathing difficulty, fatigue, cough [facility] 2024 9:17am Flare up of fibromyalgia October 19 6:08pm BP high, headache October 20, 2024 9:5 7am Additional Source Comments INFORMATION SOURCE (unrecogn ized section and content) DATE CREATED AUTHOR 10/16/2018 [facility] DATE CREATED AUTHOR AUTHOR'S ORGANIZ ATION 11/05/2022 [facility] DATE CREATED AUTHOR AUTHOR'S ORGANIZ ATION 11/13/2023 [facility] DATE CREATED AUTHOR AUTHOR'S ORGANIZ ATION 09/11/2024 [facility] DATE CREATED AUTHOR AUTHOR'S ORGANIZ ATION 10/21/2024 [facility] DATE CREATED AUTHOR AUTHOR'S ORGANIZ ATION 11/13/2024 [facility] DATE CREATED AUTHOR AUTHOR'S ORGANIZ ATION 12/09/2024 [facility] DATE CREATED AUTHOR AUTHOR'S ORGANIZ ATION 12/28/2024 [facility] REASON FOR VISIT (unrecogniz ed section and content) Reason Comments Post-op Visit Reason Comments Pre-op Visit Reason Comments Post-op Visit Pt present today for a 6 week post operative visit. Pt had a robotic hysterectomy on 05/16/2024. Reason Comments New Patient Nipple discharge sli ghtpain on left side during period Specialty Diagnoses / Procedures Referred By Christian mckinley Referred To Contact Breast Surgery Diagnoses Nipple [place] [place] [place] [address] [place] [address] [address] [place] [address] Ana Strong MD [address] [facility] [address] [place] [address] Referral ID Status Reason Start Date Expiration Date V isits Requested Visits Authorized [id number] Pending Review 11/03/2023 11/02/2024 1 1 Reason Comments Thyroid Problem Reason Comments Established Patient Follow-Up Reason Comments Vaginal Discharge Reason Comments Follow-up Nipple discharge Reason Comments Consult Care Teams (unrecognized sec tion and content) [...] Provider Active Start: April 14, 2024 Yoandy Paulao , DO Attending Provider Active Start : April [...] Care Provider Active Start: May 16, 2024 Yoandycarmelina Paulao , DO Attending Provider Active Start : May 16, 2024 Team Status: Inactive Member Role Status Dates Yoandycarmelina Paulao , DO Attending Provider Active Start : [...] Care Provider Active Start: November 02, 2023 Yoandy Rory , DO Attending Provider Active Start : November 02, 2023 Team Status: Active Member Role Status Dates Royal Martinez MD Primary Care Provider Active Start: November 12, 2023 Yoandy Paulao , DO Attending Provider Active Start : November [...] Dates Royal Martinez MD Primary Care Provide megan Attending Provider Active Start: September 28, 2023 End: September 28, 2023 Team Status: Inactive Member Role Status Dates Royal Martinez MD Primary Care Provider Active Start: October 13, 2023 End: October 13, 2023 Yoandy Valadez Attending Provider Active Start: 2023 End: October 13, 2023 Microbiology Manager Relationship Specialty Start Date End Date Royal Martinez MD [address] [facility] [place] [phone] PCP - General Family Medicine 11/24/22 Microbiology Manager Relationship Specialty Start Date End Date Royal Martinez MD [address] [facility] [place] [phone] PCP - General Family Medicine 11/24/22 Microbiology Manager Relationship Specialty Start Date End Date Royal Martinez MD [address] [facility] [place] [phone] PCP - General Family Medicine 11/24/22 Microbiology Manager Relationship Specialty Start Date End Date Royal Martinez MD [address] [facility] [place] [phone] PCP - General Family Medicine 11/24/22 Microbiology Manager Relationship Specialty Start Date End Date Royal Martinez MD [address] [facility] [place] [phone] PCP - General Family Medicine 11/24/22 Microbiology Manager Relationship Specialty Start Date End Date Royal Martinez MD [address] [facility] [place] [address] PCP - General Family Medicine 11/24/22 Microbiology Manager Relationship Specialty Start Date End Date Royal Martinez MD [address] [place] [address] PCP - General Family Medicine 11/24/22 Microbiology Manager Relationship Specialty [place] [address] [place] [address], [id number] PCP - General 09/10/16 Microbiology Manager Relationship Specialty Start Date End Date Royal Martinez MD [address] [place] [address] PCP - General Family Medicine 11/24/22 Microbiology Manager Relationship Specialty Start Date End Date Royal Martinez MD [address] [place] [address] Referring Family Medicine 07/24/24 Team Status: Active Member Role Status Dates Royal Martinez MD Primary Care Provider Active Start: October 10, 2024 Eddie Buckner [facility] DO Attending Provider Active Start: October 10, 2024 Team Status: Inactive Member Role Status Dates Royal Martinez MD Primary Care Provider Active Start: October 19, 2024 End: October 19, 2024 Damian Mckeon DO Emergency Provider Active St art: October 19, 2024 End: October 19, 2024 Team Status: Inactive Member Role Status Dates Royal aMrtinez MD Primary Care Provide r, Attending Provider Active Start: October 20, 2024 End: October 20, 2024 Microbiology Manager Relationship Specialty Start Date End Date Royal Martinez MD [address] [place] [address] Referring Family Medicine 07/24/24 Microbiology Manager Relationship Specialty Start Date End Date Royal Martinez MD [address] [place] [address] Referring Family Medicine 07/24/24 Microbiology Manager Relationship Specialty Start Date End Date Royal Martinez MD [address] [place] [address] PCP - General Family Medicine 11/09/24 Royal Martinez MD [address] [place] [address] Referring Family Medicine 07/24/24 Microbiology Manager Relationship Specialty Start Date End Date Royal Martinez MD [address] [facility] [place] [address] PCP - General Family Medicine 11/24/22 Microbiology Manager Relationship Specialty Start Date End Date Royal Martinez MD [address] [facility] [place] [address] PCP - General Family Medicine 11/24/22 Microbiology Manager Relationship Specialty Start Date End Date Royal Martinez MD [address] [facility] [place] [address] PCP - General Family Medicine 11/24/22 Microbiology Manager Relationship Specialty Start Date End Date Royal Martinez MD [address] [facility] [place] [address] PCP - General 09/10/16 Microbiology Manager Relationship Specialty Start Date End Date Royal Martinez MD [address] [facility] [place] [address] PCP - General 09/10/16 Microbiology Manager Relationship Specialty Start Date End Date Royal Martinez MD [address] [place], [place] [phone] PCP - General 09/10/16 Microbiology Manager Relationship Specialty Start Date End Date Royal Martinez MD [address] [address] PCP - General Family Medicine 11/09/24 Royal Martinez MD [address] [place] [address] Referring Family Medicine 07/24/24 Microbiology Manager Relationship Specialty Start Date End Date Royal Martinez MD [address] [place] [address] PCP - General Family Medicine 11/24/22 Goals [...] or prosecute any alcohol or drug abuse patient.[facility] HospitalIn the event this information is protected by the Federal Confidentiality of Alcohol and Drug Abuse Patient Records regulations: The Federal rules restrict any use of the information to criminally investigate or prosecute any alcohol or drug abuse patient.[facility] HospitalIn the event this information is protected by the Federal Confidentiality of Alcohol and Drug Abuse Patient Records regulations: The Federal rules restrict any use of the information to criminally investigate or prosecute any alcohol or drug abuse patient.[facility] HospitalIn the event this information is protected by the Federal Confidentiality of Alcohol and Drug Abuse Patient Records regulations: The Federal rules restrict any use of the information to criminally investigate or prosecute any alcohol or drug abuse patient.[facility] HospitalIn the event this information is protected by the Federal Confidentiality of Alcohol and Drug Abuse Patient Records regulations: The Federal rules restrict any use of the information to criminally investigate or prosecute any alcohol or drug abuse patient.[facility] HospitalIn the event this information is protected by the Federal Confidentiality of Alcohol and Drug Abuse Patient Records regulations: The Federal rules restrict any use of the information to criminally investigate or prosecute any alcohol or drug abuse patient.[facility] FOR RECORDS PERTAINING TO PATIENTS WHO ARE [...] BE BASED ON THE PRIMARY CLINICAL RECORDS. [email or web address]. provides no warranty or guarantee of the accuracy or completeness of information in this document.
--- OUTSIDE RECORDS SUMMARY | 2025-01-16 22:23 | XMS_ITS | Encounter Summary ---
Author Organization [facility] Address [address] [place] [address] Care Team Providers Care Associate Professor Of Media Arts Name Role Phone Ngoc Aceves MD Primary Care Provider [phone] Encounter Details Date Type Department Care Team (Late Contact Info) Description 05/16/2024 Abstract [facility] [address] [facility] [place] [address] Yoandy Valadez, DO [address] [place] [address] Social History Tobacco Use Types Packs/Day Years [...] on file documented as of this encounter Plan of Treatment Upcoming Encounters Date Type Department Care Team (Late Contact Info) Description 01/24/2026 11:00 AM EDT Procedure Visit [facility] OB [address] [facility] [place] [address] Yoandy Valadez, DO [address] [place] [id number] documented as of this encounter Visit Diagnoses Not on filedocumented in this encounter Care Teams Associate Professor Of Media Arts Relationship Specialty Start Date End Date Ngoc Aceves MD [address] [place] [address] PCP - General Family Medicine 11/24/22 documented as of this encounter
--- OUTSIDE RECORDS SUMMARY | 2025-01-16 22:23 | XMS_ITS | Encounter Summary ---
Author Organization [facility] Address [address] [place] [address] Care Team Providers Care Sanforizer Name Role Phone Ngoc Aceves MD Primary Care Provider [phone] Encounter Details Date Type Department Care Team (Late Contact Info) Description 04/11/2024 Abstract [facility] OB [address] [facility] [place] [address] Yoandy Valadez, DO [address] [place] [address] Social History Tobacco Use Types Packs/Day Years [...] 01/24/2026 11:00 AM EDT Procedure Visit [facility] OB [address] [facility] [place] [address] Yoandy Valadez, DO [address], [place] [phone] documented as of this encounter Visit Diagnoses Not on filedocumented in this encounter Care Teams Sanforizer Relationship Specialty Start Date End Date Ngoc Aceves MD [address] [place] [address] PCP - General Family Medicine 11/24/22 documented as of this encounter
--- OUTSIDE RECORDS SUMMARY | 2025-01-16 22:23 | XMS_ITS | Encounter Summary ---
Author Organization [facility] Address [address] [place] [address] Care Team Providers Care Supportability Engineer Name Role Phone Ngoc Aceves MD Unavailable [phone] Ngoc Aceves MD Primary Care Provider Source Comments In the event this information is protected by the Federal Confidentiality of Alcohol and Drug AbusePatient Records regulations: The Federal rules restrict any use of the information to criminally investigate or prosecute any alcohol or drug abuse patient.[facility] Encounter Details Date Type Department Care Team (Late st Contact Info) Description 12/10/2024 Results Follow-Up Endocrinology [address] [place], [place] [phone] Gerogette Purcell MD [address] [place] [address] Social History Tobacco Use Types Packs/Day Years Used Date Smoking Tobacco: Every Day Cigarettes Smokeless Tobacco: Never PHQ-2 Answer Date Recorded PHQ-2 score 3 11/07/2024 Area Deprivation Index Answer Date Manoj rded National Score (1-100), lower number is lower ri sk 80 07/26/2023 State Score (1-10), lower number is lower risk 7 07/26/2023 Data from: https://www.neighborhoodatlas.medicine.[facility].edu/. Last address used for calculation [address] 07/26/2023 Comments Unknown Sex and Gender Information Value Date Recorded Sex Assigned at Not on file Legal Sex Female 7:31 AM EST Gender Identity Not on file Sexual Orientation Not on file documented as of this encounter Plan of Treatment Upcoming Encounters Date Type Department Care Team (Latest Contact Info) Description 01/29/2025 10:00 AM EDT [facility] [address] [place] [address] Ronaldo Chavez, Therapist [address] [place] [address] 03/07/2025 11:00 AM EDT Office Visit Endocrinology [address] [place] [address] Georgette Purcell MD [address] [place], [place] [phone] F/U 6 months In Person documented as of this encounter Visit Diagnoses Not on filedocumented in this encounter Care Teams Supportability Engineer Relationship Specialty Start Date End Date Ngoc Aceves MD [address] [place] [address] PCP - General Family Medicine 11/09/24 Ngoc Aceves MD [address] [place] [address] Referring Family Medicine 07/24/24 documented as of this encounter
--- OUTSIDE RECORDS SUMMARY | 2025-01-16 22:23 | XMS_ITS | Encounter Summary ---
Author Organization [facility] tem Address [id number] [address] [place] [address] Care Team Providers Care Airflight Attendants Supervisor Name Role Phone Ngoc Aceves MD Primary Care Provider [phone] Encounter Details Date Type Department Care Team ([facility] Contact Info) Description 11/04/2020 Orders Only Maternal- Medicine at [address] [place] [address] Li Gomez, RN Multigravida of advanced maternal age in second trimester; Abnormal quad screen Social History Tobacco Use Types Packs/Day Years Used Date Smoking Tobacco: Every Day Cigarettes Smokeless Tobacco: Never Alcohol Use Standard Drinks/Week Comments Not Currently 0 (1 standard drink = 0.6 oz pur e alcohol) rarely Childcare Answer Date Recorded Childcare Unknown 12/07/2018 Employment Answer Date Recorded Employment Unknown 12/07/2018 Purpose - Life Answer Date Recorded Purpose and direction in life Unknown Comments Yes Sex and Gender Information Value Date Recorded Sex Assigned at Not on file Legal Sex Female 12:02 PM EDT Gender Identity Not on file Sexual Orientation Not on file COVID-19 Exposure Response Date Recorded In the last month, have you been in contact with someone who was confirmed or suspected to have Coronavirus / COVID-19? No / Unsure 10/29/2020 8:56 AM EDT documented as of this encounter Plan of Treatment Upcoming Encounters Date Type Department Care Team ([facility] Contact Info) Description 01/23/2025 2:30 PM EDT Appointment [facility] - Mammography/DEXA Imaging [address] [place] [address] 01/23/2025 3:00 PM EDT Appointment [facility] - Ultrasound [address] [place] [address] 02/13/2025 10:40 AM EDT Office Visit [facility] [address] [place] [phone] Gisel Orellana MD [address] [place] [address] 03/20/2025 1:15 PM EDT Appointment [facility] - MRI Imaging [address] [place] [address] documented as of this encounter Procedures Procedure Name Priority Date/Time Associated Diagnosis Comments UNLISTED LAB TEST Routine 10/29/2020 Multigravida of advanced maternal age in second trimester Abnormal quad screen documented in this encounter Results * Unlisted Lab Test(Not for Covid-19 Testing), (10/29/2020) Free Cell Dna MANUALLY TRANSCRIBED RESULTS Comment:see attached report 10/29/2020 us Seun Baker MD LAB BLOOD ORDERABLES Final Res ult MANUALLY TRANSCRIBED RESULTS documented in this encounter Visit Diagnoses Diagnosis Multigravida of advanced maternal age in second trimester Abnormal quad screen Abnormal findings on screening documented in this encounter Care Teams Airflight Attendants Supervisor Relationship Specialty Start Date End Date Ngoc Aceves MD [address] [place] [address] PCP - General 09/10/16 documented as of this encounter
--- OUTSIDE RECORDS SUMMARY | 2025-01-16 22:23 | XMS_ITS | Clinical Summary ---
Author Organization [employer] [facility] Address [id number] [address] [place] [address] Care Team Providers Care Tube Backer Name Role Phone Ngoc Aceves MD Primary Care Provider [phone] Allergies Active Allergy Reactions Criticality Noted Date Comments Jgnlcpurjt-Ugagjydbzcgaj-Uiky 2016 Varenicline 10/21/2020 Corticosteroids (Glucocorticoids) 10/21/2020 Cyclobenzaprine 09/30/2016 Divalproex 12/02/2016 Pt states makes her suicidal Diphenhydramine 09/30/2016 irritable Dye 10/21/2020 MRI DYE Sumatriptan Succinate Itching 11/30/2016 burning Iodine And Iodide Containing Products 10/21/2020 Iodinated contrast media Progesterone Swelling 09/30/2016 Other 10/21/2020 Sumatriptan 09/30/2016 Topiramate 10/21/2020 Tramadol 09/30/2016 Sertraline 03/31/2018 Medications montelukast (SINGULAIR) 10 mg tablet Take 1 tablet (10 mg total) by mouth nightly. Active albuterol (PROVENTIL HFA;VENTOLIN HFA) 90 mcg/actuation inhaler Inhale 2 puffs every 4 (four) hours as needed for wheezing. Active fluticasone (FLONASE) 50 mcg/actuation nasal spray Administer 1 spray into each nostril in the morning. Active dicyclomine (BENTYL) 20 mg tablet Take 1 tablet (20 mg total) by mouth every 8 (eight) hours as needed. Active oxyCODONE-aceta minophen (PERCOCET) 7.5-325 mg per tablet Take 1 tablet by mouth every 6 (six) hours as needed for pain. 15/325mg Active buPROPion XL (WELLBUTRIN XL) 150 mg 24 hr tabletIndicatio ns:Tobacco dependency Take 1 tablet (150 mg total) by mouth daily. 30 tablet 6 7 Active Additional Information Patient taking differently: 300 mgoral Daily, Reported on 12/26/2024 pregabalin (LYRICA) 100 mg capsule Take 1 capsule (100 mg total) by mouth in the morning and 1 capsule (100 mg total) before bedtime. Active albuterol (PROVENTIL,VENT SHAKIR) 2.5 mg /3 mL (0.083 %) nebulizer solution Inhale 3 mL (2.5 mg total) by nebulization every 4 (four) hours as needed for wheezing. Active budesonide-form oteroL (SYMBICORT) 160-4.5 mcg/actuation inhaler Inhale 2 puffs in the morning and 2 puffs before bedtime. Active promethazine (PHENERGAN) 25 mg tablet Take 1 tablet (25 mg total) by mouth every 8 (eight) hours as needed for nausea or vomiting. Active VITAMIN PLUS LOW IRON 27 mg iron- 1 mg tablet Take 1 tablet by mouth in the morning. Active Active Problems Problem Noted Date Diagnosed Date Obesity affecting 10/29/2020 Asthma during 10/29/2020 Advanced maternal age in multigravida 10/29/2020 Low lying placenta, antepartum 10/29/2020 History of migraine during 10/29/2020 Abnormal quad screen 10/13/2020 Overview (10/29/2020): 1:43 T21 10/14/2020 T18 and AFP screen negative Chronic back pain 08/01/2020 Breast lump 05/31/2020 Overview (10/29/2020): Dr. 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 affecting pregnanc y Encounters Date Type Department Care Team Description 01/04/2025 Orders Only [facility] [address] [place] [address] von Seggern, Ning, PIECE MARKER SMALL ARMS Mass of upper outer quadrant of right breast (Primary Dx); Mass of upper outer quadrant of left breast; Inversion of left nipple 01/04/2025 Telephone [facility] [address] [place] [address] Cathryn Pozo CMA 01/02/2025 Telephone [facility] [address] [place] [address] Deepa Carreno PA 12/26/2024 11:30 AM EDT Office Visit [facility] [address] [place] [address] Deepa Carreno PA Mass of upper outer quadrant of left breast (Primary Dx); Mass of upper outer quadrant of right breast; Inversion of left nipple 12/26/2024 Travel from Last 3 Months Family History Medical History Relation Name Comments Arthritis Father Cancer Father Cancer Paternal Grandfather Breast cancer Neg Hx Endometrial cancer Neg Hx Ovarian cancer Neg Hx Relation Name Status Comments Father Alive Mother Alive Paternal Grandfather Social History Tobacco Use Types Packs/Day Years Used Date Smoking Tobacco: Some Days Cigarettes Smokeless Tobacco: Never Tobacco Cessation:Ready to Q uit: Not Asked; Counseling Given: Not Answered Alcohol Use Standard Drinks/Week Comments Not Currently 0 (1 standard drink = 0.6 oz pur e alcohol) rarely PHQ-2 Answer Date Recorded Total Score 9 01/05/2024 Childcare Answer Date Recorded Childcare Unknown 12/07/2018 Employment Answer Date Recorded Employment Unknown 12/07/2018 Hunger Screening Answer Date Recorded Within the past 12 months we worried whether our food would run out before we got money to buy more. Never True 01/05/2024 Within the past 12 months th e food we bought just didn't last and we didn't have money to get more. Never True 01/05/2024 Purpose - Life Answer Date Recorded Purpose and direction in life Unknown Comments No Sex and Gender Information Value Date Recorded Sex Assigned at Not on file Legal Sex Female 12:02 PM EDT Gender Identity Not on file Sexual Orientation Not on file Last Filed Vital Signs Vital Sign Reading Time Taken Comments Blood Pressure 148/81 12/26/2024 11:48 AM EDT Pulse 93 12/26/2024 11:48 AM EDT Temperature 36.5 C (97.7 F) 01/05/2024 11:02 AM EDT Respiratory Rate 18 12/26/2024 11:48 AM EDT Oxygen Saturation 100% 04/13/2018 10:30 AM EDT Inhaled Oxygen Concentration - - Weight 69.4 kg (153 lb) 12/26/2024 11:48 AM EDT Height 175.3 cm (5' 9.02 ) 12/26/2024 11:48 AM E DT Body Mass Index 22.58 12/26/2024 11:48 AM EDT Plan of Treatment Upcoming Encounters Date Type Department Care Team (Late st Contact Info) Description 01/23/2025 2:30 PM EDT Appointment [facility] - Mammography/DEXA Imaging [address] [place] [address] 01/23/2025 3:00 PM EDT Appointment [facility] - Ultrasound [address] [place] [address] 02/13/2025 10:40 AM EDT Office Visit [facility] [address] [facility] [address] [place] [phone] Gisel Orellana MD [address] [facility] [address] [place] [address] 03/20/2025 1:15 PM EDT Appointment [facility] - MRI Imaging [address] [place] [address] Health Maintenance Due Date Last Done Comments Tobacco Counseling 1981 DTaP,Tdap and Td Vaccines (1 - Tdap) 2000 Depression Screening 01/04/2025 01/05/2024 Influenza Vaccine 02/26/2025 Adult BMI Screening 12/26/2025 12/26/2024 Tobacco Screening 12/26/2025 12/26/2024 Pap Smear Discontinued 11/02/2023, 01/27/2018 Medical Devices Implanted Type Area Golf Tournament Consultant Device Identifier Shelf Expiration Date Model / Serial / Lot Catina - Sn/A - [id number] Implanted:Qty: 1 on 12/02/2016 by Seun Mattson DO at [facility] [place] Right: Shoulder Arthrex 09/25/2018 AR-2600SBS -5 / N/A / [id number] Description:KIT CONTAINS 4 A NCHORS Catina - Sna - [id number] Implanted:Qty: 1 on 04/13/2018 by Seun Mattson DO at [facility] [place] Right: Shoulder Arthrex 05/27/2019 AR-2600SBS -5 / NA / [id number] Insurance MEDICAID [place] [employer] MED[employer]VANTAGE Care Teams Tube Backer Relationship Specialty Start Date End Date Ngoc Aceves MD [address] [place] [address] PCP - General 09/10/16
--- OUTSIDE RECORDS SUMMARY | 2025-01-16 22:23 | XMS_ITS | Encounter Summary ---
Author Organization [facility] Address [address] [place] [address] Care Team Providers Care Community Outreach Worker Name Role Phone Ngoc Aceves MD Primary Care Provider [phone] Encounter Details Date Type Department Care Team (Late Contact Info) Description 05/16/2024 Abstract [facility] OB [address] [place] [address] Yoandy Valadez, DO [address] [place] [address] Social History Tobacco Use Types Packs/Day Years [...] 01/24/2026 11:00 AM EDT Procedure Visit [facility] OB [address] [place] [address] Yoandy Valadez, DO [address] [place] [id number] documented as of this encounter Visit Diagnoses Not on filedocumented in this encounter Care Teams Community Outreach Worker Relationship Specialty Start Date End Date Ngoc Aceves MD [address] [place] [address] PCP - General Family Medicine 11/24/22 documented as of this encounter
--- OUTSIDE RECORDS SUMMARY | 2025-01-16 22:23 | XMS_ITS | Encounter Summary ---
Author Organization [facility] Address [id number] [address] [place] [address] Care Team Providers Care Visual Training Aide Name Role Phone Ngoc Aceves MD Primary Care Provider [phone] Reason for Visit * Reason Comments Med Refill Encounter Details Date Type Department Care Team (Late Contact Info) Description 07/29/2017 Refill [facility] [address] [place] [address] Lilibeth Mccormack, [address] [facility] [address] [place] [address] Social History Tobacco Use Types Packs/Day Years Used Date Smoking Tobacco: Every Day Cigarettes Alcohol Use Standard Drinks/Week Comments Yes 0 (1 standard drink = 0.6 oz pur e alcohol) rarely Comments No Sex and Gender Information Value Date Recorded Sex Assigned at Not on file Legal Sex Female 12:02 PM EDT Gender Identity Not on file Sexual Orientation Not on file documented as of this encounter Plan of Treatment Upcoming Encounters Date Type Department Care Team (Late Contact Info) Description 01/23/2025 2:30 PM EDT Appointment [facility] [place] [facility] - Mammography/DEXA Imaging [address] [place] [address] 01/23/2025 3:00 PM EDT Appointment [facility] [place] [facility] - Ultrasound [address] [place] [address] 02/13/2025 10:40 AM EDT Office Visit [facility] [address] [facility] [address] [place] [phone] Gisel Orellana MD [address] [facility] [address] [place] [address] 03/20/2025 1:15 PM EDT Appointment [facility] [place] [facility] - MRI Imaging [address] [place] [address] documented as of this encounter Visit Diagnoses Not on filedocumented in this encounter Care Teams Visual Training Aide Relationship Specialty Start Date End Date Ngoc Aceves MD [address] [place] [address] PCP - General 09/10/16 documented as of this encounter
--- OUTSIDE RECORDS SUMMARY | 2025-01-16 22:23 | XMS_ITS | Encounter Summary ---
Author Organization [facility] Address [address] [place] [address] Care Team Providers Care Building Maintenance Engineer Name Role Phone Ngoc Aceves MD Primary Care Provider [phone] Encounter Details Date Type Department Care Team (Late st Contact Info) Description 11/09/2023 Clinisync Result Encounter [facility] External Department Unsolicited Yoandy Valadez, DO [address] [place] [address] Social History Tobacco Use Types Packs/Day Years Used Date Smoking Tobacco: Former Cigarettes Alcohol Use Standard Drinks/Week Comments Yes 0 (1 standard drink = 0.6 oz pur e alcohol) Comments Unknown Sex and Gender Information Value Date Recorded Sex Assigned at Not on file Legal Sex Female 7:17 PM EDT Gender Identity Not on file Sexual Orientation Not on file documented as of this encounter Plan of Treatment Upcoming Encounters Date Type Department Care Team (Late st Contact Info) Description 01/24/2026 11:00 AM EDT Procedure Visit [facility] [address] [place] [phone] Yoandy Valadez, DO [address] [place] [address] documented as of this encounter Procedures Procedure Name Priority Date/Time Associated Diagnosis Comments ECG 12-LEAD 11/09/2023 10:00 AM EDT documented in this encounter Results * ECG 12-LEAD (11/09/2023 10:00 AM EDT) Anatomical Region Laterality Modality Other 11/09/2023 10:0 0 AM EDT Narrative 11/09/2023 10:47 [place] [address] Electrocardiograph Report Signed Patient: LAM MOORE MR#: [id number] : 1980 Acct:[id number] Age/Sex: 43 / F ADM Date: 11/09/23 Loc: PST Attending Dr: Yoandy Valadez D.O. Ordering Physician: Yoandy Valadez D.O. Date of Service: 11/09/23 Procedure(s): ECG 12 lead Accession Number(s): [id number] cc: [facility] Test Date: 2023-11-09 Pat Name: LAM MOORE Department: Room: - Gender: Female Training Program Manager: : 1980 Requested By: CHRISTINA CARRILLO Order Number: [id number] Reading MD: ABIODUN MUNGUIA Measurements Intervals [place] Rate: 75 P: 51 ND: 128 QRS: 8 QRSD: 99 T: 25 QT: 365 QTc: 409 Interpretive Statements SINUS RHYTHM Compared to ECG 10/22/2021 11:21:13 No significant changes Electronically Signed On 11-09-2023 22:46:54 EDT by ABIODUN MUNGUIA Dictated By: Abiodun Munguia D.O. Signed By: 11/09/23 2247 DD/ 1000 TD/TT: Budget Consultant: Procedure Note Radiology, Radiologist, - 11/09/[address] [address] Electrocardiograph Report Signed Patient: LAM MOORE MMR#: [id number] : 1980Acct:[id number] Age/Sex: 43 / FADM Date: 11/09/23 Loc: PST Attending Dr: Yoandy Valadez D.O. Ordering Physician: Yoandy Valadez D.O. Date of Service: 11/09/23 Procedure(s): ECG 12 lead Accession Number(s): [id number] cc: [facility] Test Date: 2023-11-09 Pat Name: LAM MOORE Department: Room: - Gender: Female Training Program Manager: : 1980 Requested By: CHRISTINA CARRILLO Order Number: [id number] Reading MD: ABIODUN MUNGUIA Measurements Intervals [place] Rate: 75 P: 51 ND: 128 QRS: 8 QRSD: 99 T: 25 QT: 365 QTc: 409 Interpretive Statements SINUS RHYTHM Compared to ECG 10/22/2021 11:21:13 No significant changes Electronically Signed On 11-09-2023 22:46:54 EDT by ABIODUN MUNGUIA Dictated By: Abiodun Munguia D.O. Signed By:11/09/23 2247 DD/ 1000 TD/TT: Budget Consultant: Yoandy Valadez DO [facility] Final Result documented in this encounter Visit Diagnoses Not on filedocumented in this encounter Care Teams Building Maintenance Engineer Relationship Specialty [place] [address] [place] [address] PCP - General Family Medicine 11/24/22 documented as of this encounter
--- OUTSIDE RECORDS SUMMARY | 2025-01-16 22:23 | XMS_ITS | Encounter Summary ---
Author Organization [facility] Address [address] [place] [address] Care Team Providers Care Back Seam Stitcher Name Role Phone Ngoc Aceves MD Primary Care Provider [phone] Encounter Details Date Type Department Care Team (Late Contact Info) Description 07/14/[address] [facility] OB [address] [facility] [place] [phone] Yoandy Valadez, DO [address] [place] [place] [address] Social History Tobacco Use Types Packs/Day Years [...] 01/24/2026 11:00 AM EDT Procedure Visit [facility] OB [address] [facility] [place] [address] Yoandy Valadez, DO [address] [place], [place] [id number] documented as of this encounter Visit Diagnoses Not on filedocumented in this encounter Care Teams Back Seam Stitcher Relationship Specialty Start Date End Date Ngoc Aceves MD [address] [place] [phone] PCP - General Family Medicine 11/24/22 documented as of this encounter
--- OUTSIDE RECORDS SUMMARY | 2025-01-16 22:23 | XMS_ITS | Encounter Summary ---
Author Organization [employer] Address [id number] [address] [place] [address] Care Team Providers Care Polymer Specialist Name Role Phone Ngoc Aceves MD Primary Care Provider [phone] Encounter Details Date Type Department Care Team (Late st Contact Info) Description 01/04/2025 Telephone [facility] [address] [facility] [address] [place] [address] Cathryn Pozo CMA Social History Tobacco Use Types Packs/Day Years Used Date Smoking Tobacco: Some Days Cigarettes Smokeless Tobacco: Never Alcohol Use Standard [...] on file documented as of this encounter Miscellaneous Notes * Telephone Encounter - Cathryn Pozo CMA - 01/04/2025 10:29 AM EDT error documented in this encounter Plan of Treatment Upcoming Encounters Date Type Department Care Team (Late st Contact Info) Description 01/23/2025 2:30 PM EDT Appointment [facility] - Mammography/DEXA Imaging [address] [place] [address] 01/23/2025 3:00 PM EDT Appointment [facility] - Ultrasound [address] [place] [address] 02/13/2025 10:40 AM EDT Office Visit [facility] [address] [place] [phone] Gisel Orellana MD [address] [place] [address] 03/20/2025 1:15 PM EDT Appointment [facility] - MRI Imaging [address] [place] [phone] documented as of this encounter Visit Diagnoses Not on filedocumented in this encounter Additional Health Concerns Assessment Noted Time PHQ-9 Depression Total Score: 9 01/05/20 24 11:00 AM EDT documented as of this encounter Care Teams Polymer Specialist Relationship Specialty [place] [address] [place] [address] PCP - General 09/10/16 documented as of this encounter
--- OUTSIDE RECORDS SUMMARY | 2025-01-16 22:23 | XMS_ITS | Encounter Summary ---
Author Organization [facility] Address [address] [place] [address] Care Team Providers Care Farm Labor Contractor Name Role Phone Ngoc Aceves MD Primary Care Provider [phone] Encounter Details Date Type Department Care Team (Late st Contact Info) Description 04/17/2024 Clinisync Result Encounter [facility] External Department Unsolicited Katie Valadez, DO [address] [place] [address] Social History Tobacco Use Types Packs/Day Years [...] EDT Procedure Visit [facility] [address] [place] [phone] Katie Valadez, DO [address] [place] [address] documented as of this encounter Procedures Procedure Name Priority Date/Time Associated Diagnosis Comments XR CHEST 2V 04/17/2024 1:53 PM EDT documented in this encounter Results * XR CHEST 2V (04/17/2024 1:53 PM EDT) Anatomical Region Laterality Modality Other 04/17/2024 1:53 PM EDT Narrative 04/17/2024 1:55 PM EDT The [address] [address] XRay Report Signed Patient: LAM MOORE MR#: [id number] : 1980 Acct:[id number] Age/Sex: 43 / F ADM Date: 04/14/24 Loc: [facility] Attending Dr: Katie Valadez D.O. Ordering Physician: Katie Valadez D.O. Date of Service: 04/14/24 Procedure(s): XR chest 2V Accession Number(s): [id number] cc: Ngoc Aceves M.D.; Katie Valadez D.O. The [address] [address] Patient Name: LAM MOORE MRN: [id number] date: 1980 Sex: F Assigned Patient Location: SURGOUT Current Patient Location: Accession/Order Number: [id number] Exam Date: 04/14/2024 10:30 Report Date: 04/17/2024 13:53 At the request of: KATIE VALADEZ Procedure: XR chest 2V EXAMINATION: XR chest 2V HISTORY: Preop exam COMPARISON: No relevant comparison available. TECHNIQUE: PA and lateral FINDINGS: LUNGS: No significant pulmonary parenchymal abnormalities. Surgical anchors right humeral head VASCULATURE: No increased pulmonary vasculature. PLEURA: No pneumothorax, effusion, or pleural thickening. CARDIAC: No cardiomegaly or cardiac silhouette abnormality. MEDIASTINUM: No visible mass or adenopathy. BONES: No fracture or visible bone lesion. OTHER: Negative. XR/XR chest 2V IMPRESSION: No acute cardiopulmonary process Electronically authenticated by: OBED LOUISE Date: 04/17/2024 13:53 Dictated By: Obed Louise M.D. Signed By: 04/17/24 1355 DD/ 135 TD/TT: Pump House Technician: Procedure Note Radiology, Radiologist, MD - 04/17/[address] [place] [address] XRay Report Signed Patient: LAM MOORE MMR#: [id number] : 1980Acct:[id number] Age/Sex: 43 / FADM Date: 04/14/24 Loc: [facility] Attending Dr: Katie Valadez D.O. Ordering Physician: Katie Valadez D.O. Date of Service: 04/14/24 Procedure(s): XR chest 2V Accession Number(s): [id number] cc: Ngoc Aceves M.D.; Katie Valadez D.O. [address] [address] Patient Name: LAM MOORE MRN: [id number] date: 1980 Sex: F Assigned Patient Location: [facility] Current Patient Location: Accession/Order Number: [id number] Exam Date: 04/14/2024 10:30 Report Date: 04/17/2024 13:53 At the request of: KATIE VALADEZ Procedure: XR chest 2V EXAMINATION: XR chest 2V HISTORY: Preop exam COMPARISON: No relevant comparison available. TECHNIQUE: PA and lateral FINDINGS: LUNGS: No significant pulmonary parenchymal abnormalities. Surgicalanchors right humeral head VASCULATURE: No increased pulmonary vasculature. PLEURA: No pneumothorax, effusion, or pleural thickening. CARDIAC: No cardiomegaly or cardiac silhouette abnormality. MEDIASTINUM: No visible mass or adenopathy. BONES: No fracture or visible bone lesion. OTHER: Negative. XR/XR chest 2V IMPRESSION: No acute cardiopulmonary process Electronically authenticated by: OBED LOUISE Date: 04/17/2024 13:53 Dictated By: Obed Louise M.D. Signed By:04/17/24 8077 DD/ 2463 TD/TT: Pump House Technician: us Katie Valadez DO [facility] Final Result documented in this encounter Visit Diagnoses Not on filedocumented in this encounter Care Teams Farm Labor Contractor Relationship Specialty Start Date End Date Ngoc Aceves MD [address] [place] [phone] PCP - General Family Medicine 11/24/22 documented as of this encounter
--- OUTSIDE RECORDS SUMMARY | 2025-01-16 22:23 | XMS_ITS | Encounter Summary ---
Author Organization [facility] Address [facility] [place] [id number] [address] [place] [address] Care Team Providers Care Security Tech Name Role Phone Ngoc Aceves MD Primary Care Provider [phone] Reason for Referral * Diagnostic Imaging (Routine) - Pending Review Specialty Diagnoses / Procedures Referred By Contac t Referred To Contact Radiology Diagnoses Mass of upper outer quadrant of right breast Mass of upper outer quadrant of left breast Inversion of left nipple Procedures NM Molecular breast imaging localization limited area Deepa Carreno PA [address] [place] [address] Phone: tel: fax: Referral ID Status Reason Start Date Expiration Date V isits Requested Visits Authorized [id number] Pending Review 01/04/2025 01/04/2026 5 5 Encounter Details Date Type Department Care Team (Late st Contact Info) Description 01/04/2025 Orders Only [facility] [address] [place] [address] Ning Solomon LPN Mass of upper outer quadrant of right breast (Primary Dx); Mass of upper outer quadrant of left breast; Inversion of left nipple Social History Tobacco Use Types Packs/Day Years [...] Info) Description 01/23/2025 2:30 PM EDT Appointment [facility] - Mammography/DEXA Imaging [address] [place] [address] 01/23/2025 3:00 PM EDT Appointment [facility] - Ultrasound [address] [place] [address] 02/13/2025 10:40 AM EDT Office Visit [facility] [address] [facility] [address] [place] [phone] Gisel Orellana MD [address] [facility] [address] [place] [address] 03/20/2025 1:15 PM EDT Appointment [facility] - MRI Imaging [address] [place] [address] Scheduled Orders Name Type Priority Associated Diagnoses Orde r Schedule NM Molecular breast imaging localization limited area Imaging Routine Mass of upper outer quadrant of right breast Mass of upper outer quadrant of left breast Inversion of left nipple Expected: 01/04/2025, Expires: 07/03/2025 Mammography diagnostic bilateral with CAD Imaging Routine Mass of upper outer quadrant of right breast Mass of upper outer quadrant of left breast Inversion of left nipple Expected: 01/04/2025, Expires: 01/04/2026 Ultrasound breast limited bilateral Imaging Routine Mass of upper outer quadrant of right breast Mass of upper outer quadrant of left breast Inversion of left nipple Expected: 01/04/2025, Expires: 01/04/2026 documented as of this encounter Visit Diagnoses Diagnosis Mass of upper outer quadrant of right breast- Primary Mass of upper outer quadrant of left breast Inversion of left nipple documented in this encounter Additional Health Concerns Assessment Noted Time PHQ-9 Depression Total Score: 9 01/05/20 24 11:00 AM EDT documented as of this encounter Care Teams Security Tech Relationship Specialty Start Date End Date Ngoc Aceves MD [facility] [place] [address] PCP - General 09/10/16 documented as of this encounter
--- OUTSIDE RECORDS SUMMARY | 2025-01-16 22:23 | XMS_ITS | Clinical Summary ---
Author Organization [facility] Address [address] [place] [address] Care Team Providers Care Journeyman Pipe Fitter Name Role Phone Ngoc Aceves MD Unavailable [phone] Ngoc Aceves MD Primary Care Provider [phone] Allergies Active Allergy Reactions Criticality Noted Date Comments Butalbital-Acetaminophen- Caff Unknown 11/03/2012 Cyclobenzaprine Unknown 11/03/2012 Diphenhydramine Other: See Comments 12/25/2012 irritable irritable Fibrinolysin Unknown 12/25/2012 Iodinated Contrast Media Unknown 07/26/2023 Progesterone Swelling 07/14/2014 Sertraline Unknown 12/25/2012 Topiramate Unknown 12/25/2012 Tramadol Unknown 11/03/2012 Varenicline Unknown 10/21/2020 Medications albuterol HFA (PROVENTIL HFA, VENTOLIN HFA) 90 mcg/actuation inhaler Inhale 2 Puffs as instructed every 4 hours as needed. 9 Active albuterol (PROVENTIL) 2.5 mg /3 mL (0.083 %) nebulizer solution Inhale 2.5 mg as instructed every 4 hours as needed. Active budesonide-formote rol (SYMBICORT) 80-4.5 mcg/actuation inhaler Inhale as instructed every 24 hours. Active buPROPion XL (WELLBUTRIN XL) 300 mg 24 hr tablet Take by mouth every 24 hours. 9 Active montelukast (SINGULAIR) 10 mg tablet Take 1 tablet by mouth every afternoon. 4 Active pregabalin (LYRICA) 150 mg capsule Take 150 mg by mouth two times a day. 4 Active levothyroxine (SYNTHROID) 75 mcg tablet Take 1 tablet by mouth every afternoon. 4 Active cephALEXin (KEFLEX) 500 mg capsule TAKE 1 CAPSULE (500 MG) BY MOUTH IN THE MORNING AND 1 CAPSULE (500 MG) BEFORE BEDTIME. 3 Active oxyCODONE-acetamin ophen (PERCOCET) 7.5-325 mg tablet Take 1 tablet by mouth every 12 hours. 4 Active VITAMIN PLUS LOW IRON 27 mg iron- 1 mg Take 1 tablet by mouth every morning. 3 Active predniSONE (DELTASONE) 20 mg tablet TAKE 3 TABLETS BY MOUTH DAILY FOR 3 DAYS, then TAKE 2 TABLETS DAILY FOR 3 DAYS, then TAKE 1 TABLET DAILY FOR 3 DAYS 4 Active ZANAFLEX 4 mg tablet Take 4 mg by mouth once daily. 4 Active magnesium aspart,citrate,oxi de (TRIPLE MAGNESIUM COMPLEX) 400 mg magnesium cap Take 400 mg by mouth once daily. Active NURTEC ODT 75 mg disintegrating tablet Take 75 mg by mouth once daily as needed. 5 Active fluticasone (FLONASE) 50 mcg/actuation nasal spray Use 2 Sprays in each nostril once daily. Active SPIRIVA RESPIMAT 1.25 mcg/actuation inhaler Inhale 2 puffs as instructed once daily. 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); Fibromyalgia; Migraine without status migrainosus, not intractable, unspecified migraine type; Pain in joint, multiple sites 01/08/2025 Travel 12/10/2024 Results Follow-Up Endocrinology [address] [place] [address] Georgette Purcell MD 11/09/2024 10:15 AM EDT [facility]fusion [facility] Hematology/On[facility] [address] [address] Low serum adrenocorticotrophic hormone (ACTH) (Primary Dx) 11/08/2024 10:00 AM EDT Office Visit Neurology Pain [address] [place] [address] Jeovany Eid DO Fibromyalgia (Primary Dx); Migraine without status migrainosus, not intractable, unspecified migraine type; Pain in joint, multiple sites 10/28/2024 Telephone Endocrinology [address] [place] [address] Georgette Purcell MD 10/27/2024 11:00 AM EDT [facility] Endocrinology [address] [place] [address] Georgette Purcell MD Low serum adrenocorticotrophic hormone (ACTH) (Primary Dx); Hypothyroidism, unspecified type 10/26/2024 Travel from Last 3 Months Social History Tobacco Use Types Packs/Day Years Used Date Smoking Tobacco: Every Day Cigarettes Smokeless Tobacco: Never PHQ-2 Answer Date Recorded PHQ-2 score 4 01/08/2025 Area Deprivation Index Answer Date Manoj rded National Score (1-100), lower number is lower ri sk 80 07/26/2023 State Score (1-10), lower number is lower risk 7 07/26/2023 Data from: https://www.neighborhoodatlas.medicine.[facility].edu/. Last address used for calculation [address] [place] [address] 07/26/2023 Comments Unknown Sex and Gender Information Value Date Recorded Sex Assigned at Not on file Legal Sex Female 7:31 AM EST Gender Identity Not on file Sexual Orientation Not on file Last Filed Vital Signs Vital Sign Reading Time Taken Comments Blood Pressure 146/79 11/09/2024 10:43 AM EDT Pulse 67 11/09/2024 10:43 AM EDT Temperature 36.7 C (98 F) 11/09/2024 10:43 AM EDT Respiratory Rate 16 11/09/2024 10:43 AM EDT Oxygen Saturation 100% 11/09/2024 10:43 AM EDT Inhaled Oxygen Concentration - - Weight 72.2 kg (159 lb 2.8 oz) 11/08/2024 10:19 AM EDT Height 170.2 cm (5' 7 ) 11/08/2024 10:19 AM EDT Body Mass Index 24.93 11/08/2024 10:19 AM EDT Plan of Treatment Upcoming Encounters Date Type Department Care Team (Latest Contact Info) Description 01/29/2025 10:00 AM EDT [facility] [address] [place] [address] Ronaldo Chavez, Therapist [address] [place] [address] 03/07/2025 11:00 AM EDT Office Visit Endocrinology [address] [place], [place] [address] Georgette Purcell MD [address] [place] [address] F/U 6 months In Person Health Maintenance Due Date Last Done Comments Annual PCP Team Chronic Disease Visit 1999 Anxiety Screening 1999 Depression Screening 1999 HIV Screening 1999 Hepatitis C Screening 1999 DTaP,Tdap,Td Vaccine (1 - Tdap) 2000 Hepatitis B Vaccine (1 of 3 - 19+ 3-dose series) 2000 Pneumococcal Vaccine (1 of 2 - PCV) 2000 Cervical Cancer Screening 2002 Covid-19 Vaccine ( - season) 2024 Medicare Advantage Annual We llness Visit 06/28/2024 Influenza Vaccine (#1) 2025 Mammogram Screening 09/08/2025 09/08/2024, 08/02/2023, 07/28/2022 Procedures Procedure Name Priority Date/Time Associated Diagnosis Comments CORTISOL, 60 MIN Routine 11/09/2024 11:4 7 AM EDT Low serum adrenocorticotrophic hormone (ACTH) CORTISOL, 30 MIN Routine 11/09/2024 11:1 7 AM EDT Low serum adrenocorticotrophic hormone (ACTH) CORTISOL, BASAL Routine 11/09/2024 9:53 AM EDT Low serum adrenocorticotrophic hormone (ACTH) ACTH STIMULATION,3 TIME POINTS Routine 11/09/2024 9:53 AM EDT Low serum adrenocorticotrophic hormone (ACTH) from Last 3 Months Results * CORTISOL, 60 MIN POST COSYNTROPIN INJECTION 3 POINT (11/09/2024 11:47 AM EDT) Cortisol 60 min 28.3 ug/dL 10:[address] [facility] Interpretation (ACTHST) 11/09/2024 10:[address] [facility] Comment: After cortrosyn stimulation, a peak cortisol response greater than 12.6 ug/dL may indicate appropriate cortisol secretion. This result should be interpreted within the clinical context and other test results. Verona et al. Clinical Implications for Biochemical Diagnostic Thresholds of Adrenal Sufficiency Using a Highly Specific Cortisol Immunoassay. 2017 Clin. Biochem. 50:475-480. Blood BLOOD SPECIMEN / Unknown Venipuncture / Unknown 11/09/2024 11:47 AM EDT 11/09/2024 11:48 AM EDT Georgette Purcell MD LABORATORY Final Result Performing Organization Address City/[facility]/ZIP Co de Phone Number [facility] [address] [place] [address], * CORTISOL, 30 MIN POST COSYNTROPIN INJECTION (11/09/2024 11:17 AM EDT) Cortisol 30 min 24.4 ug/dL 10:[address] [facility] Blood BLOOD SPECIMEN / Unknown Venipuncture / Unknown 11/09/2024 11:17 AM EDT 11/09/2024 11:18 AM EDT us Georgette Purcell MD LABORATORY Final Result [facility] [address] [id number], [place] * CORTISOL, BASAL (11/09/2024 9:53 AM EDT) Cortisol Basal 14.4 4.8 - 19.5 ug/dL 11/09/2024 10:[address] [facility] Comment: Provided reference range is from 6-10 AM sample collection time. Cortisol Reference Range: 6-10 AM = 4.8-19.5 ug/dL, 4-8 PM = 2.5-11.9 ug/dL Blood BLOOD SPECIMEN / Unknown Venipuncture / Unknown 11/09/2024 9:53 AM EDT 11/09/2024 9:53 AM EDT us Georgette Purcell MD LABORATORY Final Result [facility] [address] [address], [place] from Last 3 Months Insurance [facility] [place] Care Teams Journeyman Pipe Fitter Relationship Specialty Start Date End Date Ngoc Aceves MD [address] [place] [address] PCP - General Family Medicine 11/09/24 Ngoc Aceves MD [address] [place] [phone] Referring Family Medicine 07/24/24
--- OUTSIDE RECORDS SUMMARY | 2025-01-16 22:23 | XMS_ITS | Encounter Summary ---
Author Organization [facility] Address [address] [place] [address] Care Team Providers Care Mud Logger Name Role Phone Ngoc Aceves MD Unavailable [phone] Ngoc Aceves MD Primary Care Provider [phone] Source Comments In the event this information is protected by the Federal Confidentiality of Alcohol and Drug AbusePatient Records regulations: The Federal rules restrict any use of the information to criminally investigate or prosecute any alcohol or drug abuse patient.[facility] Encounter Details Date Type Department Care Team (Late st Contact Info) Description 08/26/2024 Patient Msg Internal Medicine Robert [address] [place] [address] [place] [address] Provider, [facility] Appointment for Endocrinology Social History Tobacco Use Types Packs/Day Years Used Date Smoking Tobacco: Never Assessed Area Deprivation Index Answer Date Manoj rded National Score (1-100), lower number is lower ri sk 80 07/26/2023 State Score (1-10), lower number is lower risk 7 07/26/2023 Data from: https://www.neighborhoodatlas.medicine.[facility].edu/. Last address used for calculation Rosi Barrios 07/26/2023 Comments Unknown Sex and Gender Information Value Date Recorded Sex Assigned at Not on file Legal Sex Female 7:31 AM EST Gender Identity Not on file Sexual Orientation Not on file documented as of this encounter Plan of Treatment Upcoming Encounters Date Type Department Care Team (Latest Contact Info) Description 01/29/2025 10:00 AM EDT [facility] Pain Recovery [address] [facility] [address] Ronaldo Chavez, Therapist [address] [place] [address] 03/07/2025 11:00 AM EDT Office Visit Endocrinology [address] [place] [address] Georgette Purcell MD [address] [facility] [place], [place] [id number] F/U 6 months In Person documented as of this encounter Visit Diagnoses Not on filedocumented in this encounter Care Teams Mud Logger Relationship Specialty Start Date End Date Ngoc Aceves MD [address] [place] [address] PCP - General Family Medicine 11/09/24 Ngoc Aceves MD [address] [place] [address] Referring Family Medicine 07/24/24 documented as of this encounter
--- OUTSIDE RECORDS SUMMARY | 2025-01-16 22:23 | XMS_ITS | Encounter Summary ---
Author Organization [facility] Address [address] [place] [address] Care Team Providers Care Automatic Punch Press Operator Name Role Phone Ngoc Aceves MD Primary Care Provider [phone] Encounter Details Date Type Department Care Team (Late Contact Info) Description 10/19/2023 Abstract [facility] [address] [place] [address] Laurence Nelson LPN [address] [facility] [address] [place] [place] [address] Social History Tobacco Use Types Packs/Day Years [...] 01/24/2026 11:00 AM EDT Procedure Visit [facility] [address] [place] [address] Yoandy Valadez [address] [facility] [address] [place], [place] [id number] documented as of this encounter Visit Diagnoses Not on filedocumented in this encounter Care Teams Automatic Punch Press Operator Relationship Specialty Start Date End Date Ngoc Aceves MD [address] [place] [address] PCP - General Family Medicine 11/24/22 documented as of this encounter
--- OUTSIDE RECORDS SUMMARY | 2025-01-16 22:23 | XMS_ITS | Encounter Summary ---
Author Organization [facility] Address [address] [place] [address] Care Team Providers Care Pharmaceutical Laboratory Technician Name Role Phone Ngoc Aceves MD Primary Care Provider [phone] Encounter Details Date Type Department Care Team ([facility] Contact Info) Description 01/16/2025 Bamboo flowsheet [facility] OB [address] [facility] [place] [address] Yoandy Valadez [address] [place] [address] Social History Tobacco Use Types Packs/Day Years [...] Upcoming Encounters Date Type Department Care Team ([facility] Contact Info) Description 01/24/2026 11:00 AM EDT Procedure Visit [facility] OB [address] [facility] [place] [address] Yoandy Valadez DO [facility] [address] [place], [place] [id number] documented as of this encounter Visit Diagnoses Not on filedocumented in this encounter Care Teams Pharmaceutical Laboratory Technician Relationship Specialty Start Date End Date Ngoc Aceves MD [address] [place] [address] PCP - General Family Medicine 11/24/22 documented as of this encounter
--- OUTSIDE RECORDS SUMMARY | 2025-01-16 22:23 | XMS_ITS | Encounter Summary ---
Author Organization [employer] Address [id number] [address] [place] [address] Care Team Providers Care Health Science Instructor Name Role Phone Ngoc Aceves MD Primary Care Provider [phone] Encounter Details Date Type Department Care Team (Late st Contact Info) Description 01/02/2025 Telephone [facility] [address] [place] [address] Deepa Carreno PA [address] [place] [address] Social History Tobacco Use Types Packs/Day Years [...] encounter Miscellaneous Notes * Telephone Encounter - Rosemary Doe - 01/02/2025 10:37 AM EDT Patient called to say that her MRI & ultrasound appointments were scheduled for 07/02/2024. She could not get in sooner. She wanted to cancel her appt on 02/13/2025 with Esteban Dill because the test would not be completed in time for the appt. Please advise. * Telephone Encounter - MATT Navarro - 01/02/2025 10:37 AM EDT Fay, this should be a diagnostic MRI. I'm assuming they scheduled this as screening. Can you please help move her imaging up? * Telephone Encounter - Ning Solomon LPN - 01/02/2025 10:37 AM EDT Just spoke with central scheduling,they explained that both screening and diagnostic are scheduled out until June. Erica said that [facility] should have opening so I am calling the patient to haveher recall central scheduling and ask for other locations. * Telephone Encounter - MATT Navaror - 01/02/2025 10:37 AM EDT Thank you Erica and Ning. Miguel and Yumiko, scheduling for diagnostic MRIs has become an issue Gloria'm unsure where the breakdown is happening. This is the third or fourth patient who needs a diagnostic MRI and was scheduled many months out. Any help you can provide would be greatly appreciated. * Telephone Encounter - Ning Solomon LPN - 01/02/2025 10:37 AM EDT Spoke with patient suggesting she call central scheduling and ask for the [facility] facility to try for an earlier appointment . Patient agreed to call central scheduling today and will call the officeif she has any further issues scheduling her imaging. * Telephone Encounter - Cathryn Pozo CMA - 01/02/2025 10:37 AM EDT Received call from [employer] in Centralized Scheduling regarding patients breast orders. Patient is allergic to contract and an MBI was suggested in the past. Also, patient is complaining of new lumpsin both breast which would require an order for a bilateral diagnostic mammogram. Please follow up with [employer] in scheduling at [phone] option 1 * Telephone Encounter - MATT Navarro - 01/02/2025 10:37 AM EDT Please order MBI, bilateral diagnostic mammogram and bilateral breast ultrasound. Thank you. * Telephone Encounter - Ning Solomon LPN - 01/02/2025 10:[address] and patient notified. Central scheduling will be reaching out to the patient to schedule. documented in this encounter Plan of Treatment Upcoming Encounters Date Type Department Care Team (Late st Contact Info) Description 01/23/2025 2:30 PM EDT Appointment [facility] - Mammography/DEXA Imaging [address] [place] [address] 01/23/2025 3:00 PM EDT Appointment [facility] - Ultrasound [address] [place] [address] 02/13/2025 10:40 AM EDT Office Visit [facility] [address] [facility] [address] [place] [address] Gisel Orellana MD [address] [facility] [address] [place] [address] 03/20/2025 1:15 PM EDT Appointment [facility] - MRI Imaging [address] [place] [address] documented as of this encounter Visit Diagnoses Not on filedocumented in this encounter Additional Health Concerns Assessment Noted Time PHQ-9 Depression Total Score: 9 01/05/20 24 11:00 AM EDT documented as of this encounter Care Teams Health Science Instructor Relationship Specialty Start Date End Date Ngoc Aceves MD [address] [place] [address] PCP - General 09/10/16 documented as of this encounter
--- OUTSIDE RECORDS SUMMARY | 2025-01-16 22:23 | XMS_ITS | Encounter Summary ---
Author Organization [facility] Address [address] [place] [address] Care Team Providers Care Java Integration Developer Name Role Phone Ngoc Aceves MD Primary Care Provider [phone] Encounter Details Date Type Department Care Team (Late Contact Info) Description 04/20/2024 Abstract [facility] OB [address] [facility] [place] [address] Yoandy Valadez, DO [address] [place] [address] Social History Tobacco Use Types Packs/Day Years [...] 01/24/2026 11:00 AM EDT Procedure Visit [facility] OB [address] [facility] [place] [address] Yoandy Valadez, DO [address] [place], [place] [phone] documented as of this encounter Visit Diagnoses Not on filedocumented in this encounter Care Teams Java Integration Developer Relationship Specialty Start Date End Date Ngoc Aceves MD [address] [place] [address] PCP - General Family Medicine 11/24/22 documented as of this encounter
--- OUTSIDE RECORDS SUMMARY | 2025-01-16 22:23 | XMS_ITS | Encounter Summary ---
Author Organization [facility] [employer] [facility] tem Address [id number] [address] [place] [address] Care Team Providers Care Development Mgr Name Role Phone Ngoc Aceves MD Primary Care Provider [phone] Encounter Details Date Type Department Care Team (Late Contact Info) Description 10/21/2020 Orders Only Maternal- Medicine at [facility] [address] [place] [address] External, Scanning Provider Social History Tobacco Use Types Packs/Day Years Used Date Smoking Tobacco: Every Day Cigarettes Smokeless Tobacco: Never Alcohol Use Standard Drinks/Week Comments Yes 0 [...] Info) Description 01/23/2025 2:30 PM EDT Appointment [facility] - Mammography/DEXA Imaging [address] [place] [address] 01/23/2025 3:00 PM EDT Appointment [facility] - Ultrasound [address] [place] [address] 02/13/2025 10:40 AM EDT Office Visit [facility] Surgical Oncology [address] [place] [address] Gisel Orellana MD [address] [facility] [address] [place] [address] 03/20/2025 1:15 PM EDT Appointment [facility] - MRI Imaging [address] [place] [address] documented as of this encounter Procedures Procedure Name Priority Date/Time Associated Diagnosis Comments US PREG LMTD 1 OR MORE FETUS Routine 10/09/2020 documented in this encounter Results * Ultrasound limited 1 or more fetus (10/09/2020) Anatomical Region Laterality Modality OB-NETWORK TECHNICAL ANALYST Ultrasound Narrative 10/09/2020 See attached report us Scanning Provider External IMG US ORDERABLES Frederick gem Result - Final documented in this encounter Visit Diagnoses Not on filedocumented in this encounter Care Teams Development Mgr Relationship Specialty Start Date End Date Ngoc Aceves MD [address] [place] [address] PCP - General 09/10/16 documented as of this encounter
--- OUTSIDE RECORDS SUMMARY | 2025-01-16 22:23 | XMS_ITS | Encounter Summary ---
Author Organization [facility] Address [address] [place] [address] Care Team Providers Care Home Health Manager Name Role Phone Ngoc Aceves MD Primary Care Provider [phone] Encounter Details Date Type Department Care Team (Late st Contact Info) Description 10/11/2023 Clinisync Result Encounter [facility] External Department Unsolicited Katie Valadez, DO [address] [place] [address] Social History Tobacco Use Types Packs/Day Years [...] EDT Procedure Visit [facility] OB [address] [place] [address] Katie Valadez, DO [address] [place] [address] documented as of this encounter Procedures Procedure Name Priority Date/Time Associated Diagnosis Comments US PELVIS W/ TRANSVAGINAL 10/11/2023 3:00 PM EDT documented in this encounter Results * US PELVIS W/ TRANSVAGINAL (10/11/2023 3:00 PM EDT) Anatomical Region Laterality Modality Other 10/11/2023 3:00 PM EDT Narrative 10/11/2023 3:02 PM EDT [address] [address] Ultrasound Report Signed Patient: LAM MOORE MR#: [id number] : 1980 Acct:[id number] Age/Sex: 43 / F ADM Date: 10/11/23 Loc: US Attending Dr: Katie Valadez D.O. Ordering Physician: Katie Valadez D.O. Date of Service: 10/11/23 Procedure(s): US pelvis w/ transvaginal Accession Number(s): [id number] cc: Ngoc Aceves M.D.; Katie Valadez D.O. [address] [address] Patient Name: LAM MOORE MRN: [facility]:[id number] date: 1980 Sex: F Assigned Patient Location: US Current Patient Location: US Accession/Order Number: [id number] Exam Date: 10/11/2023 13:50 Report Date: 10/11/2023 15:00 At the request of: KATIE VALADEZ Procedure: US pelvis w/ transvaginal EXAMINATION: US pelvis w/ transvaginal HISTORY: Polycystic Ovarian Syndrome E28.2 COMPARISON: FINDINGS: Transabdominal and transvaginal images The uterus is normal in size and myometrial echotexture with no focal mass. 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 No focal myometrial mass. The uterus measures 8.8 x 4.2 x 5.9 cm. Endometrium measures 2.4 mm, normal. The ovaries are not definitively visualized. 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 Signed By: 10/11/23 1502 DD/ 1500 TD/TT: Programmer Business: Procedure Note Radiology, Radiologist, - 10/11/2023 [place] [address] Ultrasound Report Signed Patient: LAM MOORE MMR#: [id number] : 1980Acct:[id number] Age/Sex: 43 / FADM Date: 10/11/23 Loc: US Attending Dr: Katie Valadez D.O. Ordering Physician: Katie Valadez D.O. Date of Service: 10/11/23 Procedure(s): US pelvis w/ transvaginal Accession Number(s): [id number] cc: Ngoc Aceves M.D.; Katie Valadez D.O. [place] [id number] Patient Name: LAM MOORE MRN: [id number] date: 1980 Sex: F Assigned Patient Location: Current Patient Location: US Accession/Order Number: [id number] Exam Date: 10/11/2023 13:50 Report Date: 10/11/2023 15:00 At the request of: KATIE VALADEZ Procedure: US pelvis w/ transvaginal EXAMINATION: US pelvis w/ transvaginal HISTORY: Polycystic Ovarian Syndrome E28.2 COMPARISON: FINDINGS: Transabdominal and transvaginal images The uterus is normal in size and myometrial echotexture with no focalmass. 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 No focal myometrial mass. The uterus measures 8.8 x 4.2 x 5.9 cm. Endometrium measures 2.4 mm, normal. The ovaries are not definitively visualized. 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 Signed By:10/11/23 1502 DD/ 1500 TD/TT: Programmer Business: us Katie Rory DO [facility] Final Result documented in this encounter Visit Diagnoses Not on filedocumented in this encounter Care Teams Home Health Manager Relationship Specialty Start Date End Date Ngoc Aceves MD [address] [place] [address] PCP - General Family Medicine 11/24/22 documented as of this encounter
--- OUTSIDE RECORDS SUMMARY | 2025-01-16 22:23 | XMS_ITS | Clinical Summary ---
Author Organization [facility] Healthcare Address [address] [place] [address] Care Team Providers Care Outside Sales Name Role Phone Ngoc Aceves MD Primary Care Provider [phone] Allergies Active Allergy Reactions Criticality Noted Date Comments Acetaminophen 09/28/2023 Other Reaction(s): Hives Butalbital 09/28/2023 Other Reaction(s): Hives Hukraxajpg-Sxhd-Ijfy-Cod 09/28/2023 Other Reaction(s): Hives Caffeine 09/28/2023 Other Reaction(s): Hives Cyclobenzaprine 11/03/2012 Other Reaction(s): Hives, Unknown Other Reaction(s): Hives Diphenhydramine 12/25/2012 Other Reaction(s): Other: See Comments irritable irritable irritable Fibrinolysin 12/25/2012 Other Reaction(s): Unknown Uwydyjkeon-Bwsl-Nteknsry 11/24/2022 Iodinated Contrast Media 07/26/2023 Other Reaction(s): Hives, Unknown Other Reaction(s): Hives Iodine I-131 Tositumomab 07/06/2024 Prednisone & Diphenhydramine 024 Other Reaction(s): Comment:MRI DYE Progesterone Swelling 07/14/2014 Sertraline 12/25/2012 Other Reaction(s): Hives, Unknown Other Reaction(s): Hives Sumatriptan Itching 11/03/2012 Other Reaction(s): Hives burning Topiramate 12/25/2012 Other Reaction(s): Hives, Unknown Other Reaction(s): Hives Tramadol 11/03/2012 Other Reaction(s): Unknown Varenicline 10/21/2020 Other Reaction(s): Hives, Unknown Other Reaction(s): Hives Medications buPROPion XL (Wellbutrin XL) 300 MG 24 hr tablet Take 300 mg by mouth in the morning. Do not crush, chew, or split. . Active levothyroxine (Synthroid, Levoxyl) 75 MCG tablet Take by mouth Daily before meals. Active pregabalin (Lyrica) 75 MG capsule Take 150 mg by mouth in the morning and 150 mg before bedtime. Active oxyCODONE-acet aminophen (Percocet) 10-325 MG tablet every 6 (six) hours. Active albuterol (2.5 MG/3ML) 0.083% nebulizer solution Take 2.5 mg by nebulization every 4 (four) hours if needed 05/27/20 23 Active fluticasone (Flonase) 50 MCG/ACT nasal spray Administer 1 spray into each nostril Daily 08/26/19 24 Active cholecalcifero l (Vitamin D-3) 50 MCG (2000 UT) capsule Take 2,000 Units by mouth Daily Active Magnesium 400 MG capsule Take 400 mg by mouth Daily Active Ferrous Sulfate (IRON PO) Take 1 tablet by mouth in the morning. 05/05/20 23 Active Mucus Relief 600 MG 12 hr tablet Take 600 mg by mouth in the morning and 600 mg before bedtime. 10/27/19 23 Active montelukast (Singulair) 10 MG tablet Take 10 mg by mouth at bedtime 09/28/19 24 Active ibuprofen 800 MG tabletIndicati ons:Generalize d pain Take 1 tablet (800 mg) by mouth every 8 (eight) hours if needed for mild pain 20 tablet 06/13/20 24 Active cephalexin (Keflex) 500 MG capsuleIndicat ions:Cystic acne Take 1 capsule (500 mg) by mouth in the morning and 1 capsule (500 mg) before bedtime. 60 capsule 1 10/18/19 25 Active Rimegepant Sulfate (NURTEC PO) Take by mouth Acti ve Vit-Fe Fumarate-FA ( Vitamins) 28-0.8 MG tabletIndicati ons:Cystic acne TAKE 1 TABLET BY MOUTH DAILY 30 tablet 11 12/27/19 25 Active Vit-Fe Fumarate-FA ( Vitamins) 28-0.8 MG tabletIndicati ons:Cystic acne Take 1 tablet by mouth Daily 30 tablet 3 09/21/19 24 025 Discontinued Active Problems Problem Noted Date Diagnosed Date Abnormal uterine bleeding 02/02/2023 Dysmenorrhea 02/02/2023 Abnormal weight gain 02/02/2023 Acne 02/02/2023 Agoraphobia 02/02/2023 Cystic acne 02/02/2023 History of tobacco use 02/02/2023 Hypothyroidism 02/02/2023 Internal derangement of shoulder, right 02/03/20 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 023 Menorrhagia 02/02/2023 Migraine 02/02/2023 Mild persistent asthma with (acute) exacerbation 02/02/2023 Mild persistent asthma without complication 01/2023 Depressive disorder in mother affecting pregnanc y 02/02/2023 Mixed anxiety and depressive disorder 02/02/2023 Posttraumatic stress disorder 02/02/2023 Obesity 02/02/2023 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 Opioid abuse 02/02/2023 Other specified abnormal findings of blood chemi stry 02/02/2023 Pain in thoracic spine 02/02/2023 Umbilical hernia 02/02/2023 Opioid dependence in remission 01/10/2023 Asthma during 10/29/2020 History of migraine during 10/29/2020 Low lying placenta, antepartum ([facility]) 021 Obesity affecting ([facility]) 10/29/2020 Abnormal quad screen 10/13/2020 Overview (02/02/2023): 1:43 T21 10/14/2020 T18 and AFP screen negative Chronic back pain 08/01/2020 Breast lump 05/31/2020 Overview (02/02/2023): Dr. Valadez Allergic rhinitis 09/30/2016 Asthma, moderate persistent 09/30/2016 Chronic cough 09/30/2016 Compulsive tobacco user syndrome 09/30/2016 Tobacco smoking affecting ([facility] Irregular menstrual cycle 12/02/2015 Headache 08/30/2012 Pain in limb 08/30/2012 Encounters Date Type Department Care Team Description 01/16/2025 11:00 AM EDT Office Visit [facility] [address] [place] [address] Yoandy Valadez, DO Well woman exam with routine gynecological exam 01/16/2025 Bamboo flowsheet [facility] [address] [place] [phone] Yoandy Valadez, 12/22/2024 Refill [facility] [address] [place] [address] Yoandy Valadez, DO Cystic acne 12/18/2024 Refill [facility] [address] [place] [address] Yoandy Valadez, DO Cystic acne 12/06/2024 Telephone [facility] [address] [place] [address] Ronel Ariza MA 11/17/2024 Telephone [facility] [address] [place] [address] Charleen Bejarano LPN 11/13/2024 8:50 AM EDT Office Visit [facility] [address] [place] [phone] Angie Shen NP Yeast infection (Primary Dx); Vaginal discharge 11/13/2024 External Result Encounter [facility] External Department Unsolicited Angie Shen NP 11/13/2024 Bamboo flowsheet [facility] [address] [place] [phone] Angie Shen NP 10/17/2024 Telephone [facility] [address] [place] [address] Charleen Bejarano LPN from Last 3 Months Family History Medical History Relation Name Comments Cancer Father Cancer Paternal Grandfather Relation Name Status Comments Brother 1 Alive Brother 2 Alive Daughter Alive Father Alive Mother Paternal Grandfather Sister 1 Alive Sister 2 Son Alive Social History Tobacco Use Types Packs/Day Years Used Date Smoking Tobacco: Former Cigarettes Tobacco Cessation:Counseling Given: Not Answered Alcohol Use Standard Drinks/Week Comments Yes 0 [...] oz) 01/16/2025 11:07 A M EDT Height 175.3 cm (5' 9 ) 01/12/2024 2:54 PM EDT Body Mass Index 23.45 01/12/2024 2:54 PM EDT Plan of Treatment Upcoming Encounters Date Type Department Care Team (Late st Contact Info) Description 01/24/2026 11:00 AM EDT Procedure Visit [facility] [address] [place] [place] [address] Yoandy Valadez, DO [address] [place], [place] [phone] Procedures Procedure Name Priority Date/Time Associated Diagnosis Comments RECURRENT VAGINITIS (HTRX) Routine 11/13/2024 11:10 AM EDT from Last 3 Months Results * (ABNORMAL) RECURRENT VAGINITIS (HTRX) (11/13/2024 11:10 AM EDT) ATOPOBIUM VAGINAE 0.000 19.961 - 24.689 ppm 11/14/2024 7:14 AM EDT [facility] ATOPOBIUM VAGINAE Not Detected 19.961 - 24.689 ppm 11/14/2024 7:14 AM EDT [facility] BVAB 2,3 (BACTERIAL VAGINOSIS ASSOCIATED BACTERIA 2, 3); MOBILUNCUS SPP 0.000 19.961 - 24.689 ppm 11/14/2024 7:14 AM EDT [facility] BVAB 2,3 (BACTERIAL VAGINOSIS ASSOCIATED BACTERIA 2, 3); MOBILUNCUS SPP Not Detected 19.961 - 24.689 ppm 11/14/2024 7:14 AM EDT [facility] GOSIA ALBICANS, PARAPSILOSIS, TROPICALIS 25.492(A) 19.961 - 30.770 ppm 11/14/2024 7:14 AM EDT [facility] GOSIA ALBICANS, PARAPSILOSIS, TROPICALIS Detected(A) 19.961 - 30.770 ppm 11/14/2024 7:14 AM EDT [facility] GOSIA GLABRATA 26.311(A) 23.000 - 32.138 ppm 11/14/2024 7:14 AM EDT [facility] GOSIA GLABRATA Detected(A) 23.000 - 32.138 ppm 11/14/2024 7:14 AM EDT [facility] GOSIA KRUSEI 0.000 23.000 - 32.271 ppm 11/14/2024 7:14 AM EDT [facility] GOSIA KRUSEI Not Detected 23.000 - 32.271 ppm 11/14/2024 7:14 AM EDT [facility] CHLAMYDIA TRACHOMATIS 0.000 23.000 - 31.467 ppm 11/14/2024 7:14 AM EDT [facility] CHLAMYDIA TRACHOMATIS Not Detected 23.000 - 31.467 ppm 11/14/2024 7:14 AM EDT [facility] GARDNERELLA VAGINALIS 22.233(A) 19.961 - 24.689 ppm 11/14/2024 7:14 AM EDT [facility] GARDNERELLA VAGINALIS Detected(A) 19.961 - 24.689 ppm 11/14/2024 7:14 AM EDT [facility] MEGASPHAERA (TYPES 1, 2) 0.000 19.961 - 24.689 ppm 11/14/2024 7:14 AM EDT [facility] MEGASPHAERA (TYPES 1, 2) Not Detected 19.961 - 24.689 ppm 11/14/2024 7:14 AM EDT [facility] NEISSERIA GONORRHOEAE 0.000 23.000 - 32.117 ppm 11/14/2024 7:14 AM EDT [facility] NEISSERIA GONORRHOEAE Not Detected 23.000 - 32.117 ppm 11/14/2024 7:14 AM EDT [facility] TRICHOMONAS VAGINALIS 0.000 23.000 - 32.119 ppm 11/14/2024 7:14 AM EDT [facility] TRICHOMONAS VAGINALIS Not Detected 23.000 - 32.119 ppm 11/14/2024 7:14 AM EDT [facility] MYCOPLASMA GENITALIUM 0.000 19.961 - 24.689 ppm 11/14/2024 7:14 AM EDT [facility] MYCOPLASMA GENITALIUM Not Detected 19.961 - 24.689 ppm 11/14/2024 7:14 AM EDT [facility] ERMB, C; MEFA 25.991(A) 23.000 - 27.611 ppm 11/14/2024 7:14 AM EDT [facility] ERMB, C; MEFA Detected(A) 23.000 - 27.611 ppm 11/14/2024 7:14 AM EDT [facility] TET B, TET M 26.984(A) 23.000 - 27.778 ppm 11/14/2024 7:14 AM EDT [facility] TET B, TET M Detected(A) 23.000 - 27.778 ppm 11/14/2024 7:14 AM EDT [facility] Tissue 11/13/2024 11:1 0 AM EDT 11/14/2024 2:03 AM EDT us Angie Shen NP LAB BLOOD ORDERABLES Final Re sult [facility] [address] [place] [address] from Last 3 Months Insurance MEDICAID [place] [facility] Care Teams Outside Sales Relationship Specialty Start Date End Date Ngoc Aceves MD [address] [facility] [place] [address] PCP - General Family Medicine 11/24/22
--- OUTSIDE RECORDS SUMMARY | 2025-01-16 22:23 | XMS_ITS | Clinical Summary ---
Author Organization [facility] Address [address], [address] [place] [address] Care Team Providers Care Associate Professor Of Literature Name Role Phone Ngoc Aceves MD Primary Care Provider [phone] Allergies Active Allergy Reactions Criticality Noted Date Comments Diphenhydramine 03/26/2015 irritable Xgnitasqel-Atqb-Dsdmckvx 11/03/2012 Cyclobenzaprine 11/03/2012 Sumatriptan Itching 11/03/2012 burning Progesterone Swelling 03/26/2015 Tramadol 11/03/2012 Valproic Acid 12/02/2016 Pt states makes her suicidal Medications albuterol (PROVENTIL) (2.5 MG/3ML) 0.083% nebulizer solution Take 2.5 mg by nebulization every 6 hours as needed. Active fluticasone (FLONASE) 50 MCG/ACT nasal spray 1 spray by Nasal route daily. Active montelukast (SINGULAIR) 10 MG tablet 10 mg nightly 5 Active doxepin (SINEQUAN) 25 MG capsuleIndicati ons:Primary insomnia Take 1 capsule by mouth nightly 30 capsule 12 6 Active hydrOXYzine (VISTARIL) 25 MG capsuleIndicati ons:Anxiety Take 2 capsules by mouth 3 times daily as needed for Itching 50 capsule 12 7 Active oxyCODONE HCl (OXY-IR) 10 MG immediate release tablet TAKE 1 TABLET BY MOUTH EVERY 8 HOURS NEEDED 0 12/28/201 7 Active omeprazole (PRILOSEC) 20 MG delayed release capsule Take 20 mg by mouth daily Active Vit-Fe Fumarate-FA (MELO-RUL VITAMINS) 28-0.8 MG TABSIndications :Depressed affect Take 1 tablet by mouth daily 30 tablet 12 8 Active baclofen (LIORESAL) 10 MG tablet Take 10 mg by mouth Active valACYclovir (VALTREX) 500 MG tabletIndicatio ns:Recurrent HSV (herpes simplex virus) Take 1 tablet by mouth daily 30 tablet 12 8 Active lidocaine (XYLOCAINE) 5 % ointmentIndicat ions:Condyloma acuminatum in female Apply topically as needed. 1 Tube 1 9 Active dicyclomine (BENTYL) 20 MG tabletIndicatio ns:Irritable bowel syndrome with diarrhea Take 1 tablet by mouth every 6 hours 120 tablet 12 9 Active promethazine (PHENERGAN) 25 MG tabletIndicatio ns:Nausea Take 1 tablet by mouth every 6 hours as needed for Nausea 30 tablet 12 9 Active buPROPion (WELLBUTRIN XL) 300 MG extended release tabletIndicatio ns:Anxiety,Depr essed affect Take 1 tablet by mouth every morning 30 tablet 12 9 Active VENTOLIN HFA 108 (90 Base) MCG/ACT inhaler INHALE 2 PUFFS BY MOUTH EVERY 4 HOURS NEEDED FOR COUGH/SHORTNESS OF BREATH 18 Inhaler 5 9 Active Active Problems Problem Noted Date Diagnosed Date Allergic rhinitis 09/30/2016 Chronic cough 09/30/2016 Asthma, moderate persistent 09/30/2016 Compulsive tobacco user syndrome 09/30/2016 Irregular menstrual cycle 12/02/2015 Family History Medical History Relation Name Comments Hypotension Father Migraines Father Migraines Maternal Aunt Dementia Maternal Grandmother Cancer Paternal Grandfather Migraines Paternal Grandmother Stroke Paternal Grandmother Relation Name Status Comments Father Maternal Aunt Maternal Grandmother Paternal Grandfather Paternal Grandmother Social History Tobacco Use Types Packs/Day Years Used Date Smoking Tobacco: Every Day Cigarettes Smokeless Tobacco: Never Tobacco Cessation:Ready to Q uit: Yes; Counseling Given: Yes Alcohol Use Standard Drinks/Week Comments Yes 0 (1 standard drink = 0.6 oz pur e alcohol) PHQ-2 Answer Date Recorded PHQ-2 Score 0 09/28/2018 Comments No Sex and Gender Information Value Date Recorded Sex Assigned at Not on file Legal Sex Female 1:23 AM EST Gender Identity Not on file Sexual Orientation Not on file Last Filed Vital Signs Vital Sign Reading Time Taken Comments Blood Pressure 110/64 10/13/2018 3:07 PM EDT Pulse 74 12/02/2015 1:51 PM EDT Temperature - - Respiratory Rate 16 09/28/2016 1:16 PM EDT Oxygen Saturation - - Inhaled Oxygen Concentration - - Weight 83 kg (183 lb) 10/13/2018 3:07 PM EDT Height 175.3 cm (5' 9 ) 10/13/2018 3:07 PM EDT Body Mass Index 27.02 10/13/2018 3:07 PM EDT Plan of Treatment Not on file Insurance Member Subscriber Plan / Payer (Ef fective 2018-Present) Name:Ana Moore Relation to Subscriber:Self Name:Ana Moore Payer ID:Not on file Group ID:Not on file Type:Not on file Address: [place] [id number] MEDICARE Care Teams Associate Professor Of Literature Relationship Specialty Start Date End Date Ngoc Aceves MD PCP - General Family Medicine 05/31/13
--- OUTSIDE RECORDS SUMMARY | 2025-01-16 22:23 | XMS_ITS | Encounter Summary ---
Author Organization [facility] Address [address] [place] [address] Care Team Providers Care Postulant Name Role Phone Ngoc Aceves MD Primary Care Provider [phone] Encounter Details Date Type Department Care Team (Late st Contact Info) Description 11/09/2023 Orders Only [facility] [address] [place] [address] Laurence Nelson LPN [address] [facility] [address] [place] [place] [address] Social History Tobacco Use Types Packs/Day Years [...] 01/24/2026 11:00 AM EDT Procedure Visit [facility] [address] [place] [address] Yoandy Valadez DO [address] [facility] [address] [place], [place] [phone] documented as of this encounter Procedures Procedure Name Priority Date/Time Associated Diagnosis Comments PAP SMEAR Routine 11/02/2023 12:00 AM EDT documented in this encounter Results * Pap Smear (11/02/2023 12:00 AM EDT) Swab Cervical swab / Unknown us Rory Nurse [facility] LAB CYTOLOGY ORDERABLES Final Result EXTERNAL LAB documented in this encounter Visit Diagnoses Not on filedocumented in this encounter Care Teams Postulant Relationship Specialty Start Date End Date Ngoc Aceves MD [address] [place] [address] PCP - General Family Medicine 11/24/22 documented as of this encounter
--- OUTSIDE RECORDS SUMMARY | 2025-01-16 22:23 | XMS_ITS | Encounter Summary ---
Author Organization [facility] Address [address] [place] [address] Care Team Providers Care Forest Manager Name Role Phone Ngoc Aceves MD Unavailable [phone] Ngoc Aceves MD Primary Care Provider [phone] Source Comments In the event this information is protected by the Federal Confidentiality of Alcohol and Drug AbusePatient Records regulations: The Federal rules restrict any use of the information to criminally investigate or prosecute any alcohol or drug abuse patient.[facility] Encounter Details Date Type Department Care Team (Latest Contact Info) Description 01/08/2025 Travel Social History Tobacco Use Types Packs/Day Years Used Date Smoking Tobacco: Every Day Cigarettes Smokeless Tobacco: Never PHQ-2 Answer Date Recorded PHQ-2 score 4 01/08/2025 Area Deprivation Index Answer Date Manoj rded National Score (1-100), lower number is lower ri sk 80 07/26/2023 State Score (1-10), lower number is lower risk 7 07/26/2023 Data from: https://www.neighborhoodatlas.medicine.[facility].edu/. Last address used for calculation Rosi Barrios [...] 10:00 AM EDT [facility] [address] [place], [place] [id number] Ronaldo Chavez, Therapist [address] [place], [place] [phone] 03/07/2025 11:00 AM EDT Office Visit Endocrinology [address] [place] [address] Georgette Purcell MD [address] [place], [place] [phone] F/U 6 months In Person documented as of this encounter Visit Diagnoses Not on filedocumented in this encounter Care Teams Forest Manager Relationship Specialty Start Date End Date Ngoc Aceves MD [address] [place] [address] PCP - General Family Medicine 11/09/24 Ngoc Aceves MD [address] [place] [phone] Referring Family Medicine 07/24/24 documented as of this encounter
--- OUTSIDE RECORDS SUMMARY | 2025-01-16 22:24 | XMS_ITS | Encounter Summary ---
Author Organization [facility] tem Address [id number] [address] [place] [address] Care Team Providers Care Can Filling Machine Operator Name Role Phone Ngoc Aceves MD Primary Care Provider [phone] Encounter Details Date Type Department Care Team (Late Contact Info) Description 01/05/2024 Orders Only [facility] [address] [place] [address] Ref Prov, [place] [address] Social History Tobacco Use Types Packs/Day Years [...] Upcoming Encounters Date Type Department Care Team ([facility] Contact Info) Description 01/23/2025 2:30 PM EDT Appointment [facility] - Mammography/DEXA Imaging [address] [place] [address] 01/23/2025 3:00 PM EDT Appointment [facility] - Ultrasound [address] [place] [address] 02/13/2025 10:40 AM EDT [facility] [address] [place] [address] Gisel Orellana MD [address] [place] [address] 03/20/2025 1:15 PM EDT Appointment [facility] - MRI Imaging [address] [place] [address] documented as of this encounter Procedures Procedure Name Priority Date/Time Associated Diagnosis Comments MAMMOGRAPHY BILATERAL Routine 12/15/2022 12:25 PM EDT documented in this encounter Results * MAMMOGRAPHY BILATERAL (12/15/2022 12:25 PM EDT) us Not In System Ref Prov [facility] Final Result documented in this encounter Visit Diagnoses Not on filedocumented in this encounter Additional Health Concerns Assessment Noted Time PHQ-9 Depression Total Score: 9 01/05/20 24 11:00 AM EDT documented as of this encounter Care Teams Can Filling Machine Operator Relationship Specialty Start Date End Date Ngoc Aceves MD [address] [place] [address] PCP - General 09/10/16 documented as of this encounter
--- OUTSIDE RECORDS SUMMARY | 2025-01-16 22:24 | XMS_ITS | Encounter Summary ---
Author Organization [facility] tem Address [id number] [address] [place] [address] Care Team Providers Care Buttonhole Machine Operator Name Role Phone Ngoc Aceves MD Primary Care Provider Encounter Details Date Type Department Care Team (Late Contact Info) Description 01/03/2024 [facility]phone [facility] [address] [place] [address] Pilar Iniguez CMA Social History Tobacco Use Types Packs/Day [...] Info) Description 01/23/2025 2:30 PM EDT Appointment [facility] - Mammography/DEXA Imaging [address] [facility] [place] [address] 01/23/2025 3:00 PM EDT Appointment [facility] - Ultrasound [address] [place] [address] 02/13/2025 10:40 AM EDT Office Visit [facility] [address] [place] [address] Gisel Orellana MD [address] [place] [address] 03/20/2025 1:15 PM EDT Appointment [facility] - MRI Imaging [address] [place] [address] documented as of this encounter Visit Diagnoses Not on filedocumented in this encounter Care Teams Buttonhole Machine Operator Relationship Specialty Start Date End Date Ngoc Aceves MD [address] [place] [address] PCP - General 09/10/16 documented as of this encounter
[2025-01-20 02:07] LABS: Age Gdln ACOG Testing Note (.); HPV Genotype 18,45 Negative (Negative); IGP, Aptima HPV, rfx 16/18,45 Note (.)
== END 2025-01-16 22:18 | disposition home or self-care (01) ==
LOC: LAB 22:17
PROVIDERS: PCP Family Medicine; Visit Provider Obstetrics & Gynecology
DX: Z01.419 Encounter for gynecological examination (general) (routine) without abnormal findings (principal)
CPT/HCPCS: 87624; 87625; 88175

== ENCOUNTER 2025-02-02 08:49 | Outpatient (OUT) | payer OTHER, MEDICAID, SELFPAY ==
--- NOTE | 2025-02-02 08:54 | CT_ITS ---
The [address] [address] Patient Name: LAM TORRES MRN: [id number] date: 1980 Sex: F Assigned Patient Location: CT Current Patient Location: CT Accession/Order Number: [id number] Exam Date: 02/02/2025 10:26 Report Date: 02/02/2025 10:31 At the request of: ROYAL MARTINEZ MD Procedure: CT abdomen pelvis w con CT ABDOMEN AND PELVIS WITH INTRAVENOUS CONTRAST: CLINICAL HISTORY: Acute Generalized Abdominal Pain COMPARISON: None TECHNIQUE: Spiral images were obtained through the abdomen and pelvis following the administration of intravenous contrast. This CT exam was performed using one or more following dose reduction techniques: Automated exposure control, adjustment of the mA and/or kV according to patient size, or use of iterative reconstruction technique. FINDINGS: Lung Bases: [No acute process.] Organs:Gallbladder has been removed. Liver portal vein pancreas spleen and adrenal glands all appear unremarkable. No enhancing renal mass or hydronephrosis. Subcentimeter low attenuating lesion is seen involving the right kidney too small fracture characterization. Abdominal aorta appears normal in caliber.[ GI: Stomach is grossly unremarkable. Small bowel appears nondilated. Appendix is normal. No acute colonic abnormality.[ Pelvis:[Urinary bladder appears unremarkable. Uterus has been removed. No adnexal mass.] Peritoneum/Retroperitoneum:No free air or free fluid or lymphadenopathy.[ Abd wall/Bones:Midline fat-containing umbilical hernia. Osseous structures demonstrate mild degenerative change.[ CT/CT abdomen pelvis w con IMPRESSION: No acute findings. Impression dictated by: Francisco Gallo Jr., D.O. 02/02/2025 10:31 AM Dictation Location: [facility] [employer] Electronically authenticated by: [id number] Y Date: 02/02/2025 10:31
== END 2025-02-02 08:50 | disposition home or self-care (01) ==
LOC: CT 08:49
PROVIDERS: PCP Family Medicine; Visit Provider Family Medicine
DX: R10.84 Generalized abdominal pain (principal)
CPT/HCPCS: 74177; Q9967